=== PATIENT | female | born 1930 | race Caucasian/White ===

== ENCOUNTER 2016-11-05 01:13 | Inpatient (IN) | payer MEDICARE, BC ==
[2016-11-05] VITALS (8 sets, daily range): BP systolic 97–171; BP diastolic 56–86; PULSE 96–143; RESP 16–24; TEMP 96.1–101.2; O2SAT 91–98
[~2016-11-05] VITALS: Ht 160 cm; Wt 75.0 kg
[~2016-11-05 01:13] MED LIST: FURO1TAB62 PO; IBUP200T2 PO; POTA-243 PO; TYLETAB34 PO
[2016-11-05] MEDS ORDERED: ACETAMINOPHEN 325 MG TAB PO ONE (02:00)
[2016-11-05] MEDS ORDERED: MORPHINE SULFATE 4 MG/ML INJ IV PUSH ONE ×2 (02:00→05:00)
[2016-11-05] MEDS ORDERED: SODIUM CHLOR 0.9% 1000 ML INJ 1,000 ML IV ONE ×2 (02:00→03:15)
[2016-11-05] MEDS ORDERED: ONDANSETRON HCL 4 MG/2 ML VIAL IV ONE (02:00)
[2016-11-05 02:08] LABS: AUTOMATED NEUTROPHIL # 13.5 TH/MM3 (1.8-7.7); BASOPHIL % 0.2 % (0.0-2.0); EOSINOPHIL # 0.1 TH/MM3 (0-0.4); EOSINOPHIL % 0.7 % (0.0-4.0); HEMATOCRIT 32.5 % (35.0-46.0); HEMO FLAGS DIFF FINAL; LYMPH % 1.4 % (9.0-44.0); LYMPHOCYTE # 0.2 TH/MM3 (1.0-4.8); MEAN CELL VOLUME 94.1 FL (80.0-100.0); MEAN CORPUSCULAR HEMOGLOBIN 30.8 PG (27.0-34.0); MEAN CORPUSCULAR HGB CONC 32.7 % (32.0-36.0); MONO % 7.5 % (0.0-8.0); NEUT % 90.2 % (16.0-70.0); PLATELET COUNT 299 TH/MM3 (150-450); RED BLOOD COUNT 3.46 MIL/MM3 (4.00-5.30); RED CELL DISTRIBUTION WIDTH 13.2 % (11.6-17.2)
[2016-11-05 02:26] LABS: APTT (PATIENT) 33.6 SEC (24.3-30.1); PROTHROMBIN TIME - PATIENT 11.6 SEC (9.8-11.6)
--- NOTE | 2016-11-05 02:33 | RADRPT ---
EXAM DATE/TIME: 11/05/2016 01:56 [facility] COMPARISON: No previous studies available for comparison. INDICATIONS : Shortness of breath and fever. MEDICAL HISTORY : Carcinoma, Endometrial. SURGICAL HISTORY : Infusaport. ENCOUNTER: Initial ACUITY: 2 days PAIN SCORE: 0/10 LOCATION: chest FINDINGS: The lungs are clear without infiltrate, nodule, or mass. There is no appreciable pleural effusion fo r technique. Heart and mediastinum are unremarkable. Right IJ [id number] is present with tip over lapping the expected region of the SVC. CONCLUSION: No acute cardiopulmonary disease. Deangelo Monsivais MD on November 05, 2016 at 2:32 Board Certified Radiologist. This report was verified electronically.
[2016-11-05 02:35] LABS: ALT (GPT) 13 U/L (10-53); ANION GAP 9 MEQ/L (5-15); AST (GOT) 15 U/L (15-37); BICARBONATE 25.6 MEQ/L (21.0-32.0); BLOOD UREA NITROGEN 25 MG/DL (7-18); CHLORIDE 102 MEQ/L (98-107); GLOMERULAR FILTRATION RATE 84 ML/MIN (>89); POTASSIUM 3.7 MEQ/L (3.5-5.1); SODIUM (NA) 137 MEQ/L (136-145)
--- NOTE | 2016-11-05 02:37 | PD ---
HPI Chief Complaint: Back/ Neck Pain or Injury Time Seen by Provider: 01:50 Travel History International Travel<30 days: No Contact w/Intl Traveler<30days: No Traveled to known affect area: No History of Present Illness HPI This 86 year-old woman who presents to the emergency department complaining of nausea vomiting, low back pain, and chills. She has a history of metastatic endometrial cancer, as well as chronic back pain. The chronic back pain preceded that malignancy. She underwent an L4-L5 laminectomy about 2 weeks ago in [place]. She is doing well initially but over the past several days complained of increased nausea vomiting, increased low back pain, and chills. There is time she's also felt just generally unwell. The incision has not had any drainage or bleeding. She denies any urinary symptoms. She is a little bit of loose stools and diarrhea last week for which she took some Imodium, but no diarrhea this week. No other complaints. History Past Medical History Narrative Medical Endometrial CA Chronic back pain PNEUMOCCOCAL Vaccine (Year): 1 Menopausal: Yes Social History Alcohol Use: No Tobacco Use: No (never) Allergies-Medications (Allergen,Severity, Reaction): Coded Allergies: Penicillin (Verified Allergy, Severe, Hives, 11/05/16) Reported Meds & Prescriptions Reported Meds & Active Scripts Active Reported Klor-Con 10 (Potassium Chloride) 10 Meq Tab 10 Meq PO DAILY Ibuprofen 200 Mg Tab 200 Mg PO Q6H PRN Lasix (Furosemide) 20 Mg Tab 20 Mg PO DAILY Tylenol-Codeine #3 (Acetaminophen-Codeine) 300-30 mg Tab 1 Tab PO Q4H PRN Review of Systems Except as stated in HPI: all other systems reviewed are Neg Physical Exam Narrative GENERAL: Frail appearing 86 year-old woman, no acute distress. SKIN: Focused skin assessment warm/dry. HEAD: Atraumatic. Normocephalic. EYES: Pupils equal and round. No scleral icterus. No injection or drainage. ENT: No nasal bleeding or discharge. Mucous membranes pink and moist. NECK: Trachea midline. No JVD. CARDIOVASCULAR: Heart rates a little bit rapid, but regular. No murmur appreciated. RESPIRATORY: No accessory muscle use. Clear to auscultation. Breath sounds equal bilaterally. GASTROINTESTINAL: Abdomen soft, non-tender, nondistended. Hepatic and splenic margins not palpable. MUSCULOSKELETAL: No obvious deformities. Midline incision in the low back is well approximated. There is no erythema redness surrounding it. Is no drainage. NEUROLOGICAL: Awake and alert. No obvious cranial nerve deficits. Motor grossly within normal limits. Normal speech. PSYCHIATRIC: Appropriate mood and affect; insight and judgment normal. Data Data Last Documented VS Vital Signs Date Time Temp Pulse Resp B/P Pulse Ox O2 Delivery O2 Flow Rate FiO2 11/05/16 02:06 96 Nasal Cannula 2 11/05/16 02:06 18 11/05/16 01:16 98.6 118 134/70 Orders Electrocardiogram (11/05/16 01:50) Complete Blood Count With Diff (11/05/16 01:50) Comprehensive Metabolic Panel (11/05/16 01:50) Prothrombin Time / Inr (Pt) (11/05/16 01:50) Act Partial Throm Time (Ptt) (11/05/16 01:50) Lactic Acid Sepsis Protocol (11/05/16 01:50) Lipase (11/05/16 01:50) Troponin I (11/05/16 01:50) Urinalysis - C+S If Indicated (11/05/16 01:50) Blood Culture (11/05/16 01:50) Chest, Single Ap (11/05/16 01:50) Blood Glucose (11/05/16 01:50) Ecg Monitoring (11/05/16 01:50) Iv Access Insert/Monitor (11/05/16 01:50) Oximetry (11/05/16 01:50) Oxygen Administration (11/05/16 01:50) Acetaminophen (Tylenol) (11/05/16 02:00) Cath For Specimen (11/05/16 01:50) Sodium Chlor 0.9% 1000 Ml Inj (Ns 1000 M (11/05/16 02:00) Morphine Inj (Morphine Inj) (11/05/16 02:00) Ondansetron Inj (Zofran Inj) (11/05/16 02:00) Ct Lumb Spine W Iv Contrast (11/05/16 ) Sodium Chlor 0.9% 1000 Ml Inj (Ns 1000 M (11/05/16 03:15) Admit Order (Ed Use Only) (11/05/16 ) Cefepime Inj (Maxipime Inj) (11/05/16 03:15) Vancomycin Inj (Vancomycin Inj) (11/05/16 03:15) Labs Laboratory Tests Test 11/05/16 11/05/16 01:55 02:30 White Blood Count 15.0 TH/MM3 Red Blood Count 3.46 MIL/MM3 Hemoglobin 10.6 GM/DL Hematocrit 32.5 % Mean Corpuscular Volume 94.1 FL Mean Corpuscular Hemoglobin 30.8 PG Mean Corpuscular Hemoglobin 32.7 % Concent Red Cell Distribution Width 13.2 % Platelet Count 299 TH/MM3 Mean Platelet Volume 8.3 FL Neutrophils (%) (Auto) 90.2 % Lymphocytes (%) (Auto) 1.4 % Monocytes (%) (Auto) 7.5 % Eosinophils (%) (Auto) 0.7 % Basophils (%) (Auto) 0.2 % Neutrophils # (Auto) 13.5 TH/MM3 Lymphocytes # (Auto) 0.2 TH/MM3 Monocytes # (Auto) 1.1 TH/MM3 Eosinophils # (Auto) 0.1 TH/MM3 Basophils # (Auto) 0.0 TH/MM3 CBC Comment DIFF FINAL Differential Comment Prothrombin Time 11.6 SEC Prothromb Time International 1.0 RATIO Ratio Activated Partial 33.6 SEC Thromboplast Time Sodium Level 137 MEQ/L Potassium Level 3.7 MEQ/L Chloride Level 102 MEQ/L Carbon Dioxide Level 25.6 MEQ/L Anion Gap 9 MEQ/L Blood Urea Nitrogen 25 MG/DL Creatinine 0.67 MG/DL Estimat Glomerular Filtration 84 ML/MIN Rate Random Glucose 159 MG/DL Lactic Acid Level 1.4 mmol/L Calcium Level 8.6 MG/DL Total Bilirubin 0.6 MG/DL Aspartate Amino Transf 15 U/L (AST/SGOT) Alanine Aminotransferase 13 U/L (ALT/SGPT) Alkaline Phosphatase 79 U/L Troponin I LESS THAN 0.02 NG/ML Total Protein 6.3 GM/DL Albumin 3.2 GM/DL Lipase 51 U/L Urine Color YELLOW Urine Turbidity CLEAR Urine pH 5.5 Urine Specific [place] 1.029 Urine Protein 30 mg/dL Urine Glucose (UA) TRACE mg/dL Urine Ketones TRACE mg/dL Urine Occult Blood NEG Urine Nitrite NEG Urine Bilirubin NEG Urine Urobilinogen 2.0 MG/DL Urine Leukocyte Esterase NEG Urine RBC 1 /hpf Urine WBC 1 /hpf Urine Squamous Epithelial 1 /hpf Cells Urine Hyaline Casts 1 /lpf Urine Mucus MANY /lpf Microscopic Urinalysis Comment CATH-CULT NOT IND MDM Medical Decision Making Medical Screen Exam Complete: Yes Emergency Medical Condition: Yes Interpretation(s) LABS: CBC remarkable for mild leukocytosis, mild anemia CMP is remarkable for elevated BUN/creatinine ratio, BUN of 25 Troponin negative Hypoproteinemia Lipase normal Lactate 1.4 Coags unremarkable UA unremarkable Chest x-rays unremarkable My review of EKG: Sinus tachycardia rate of 102, normal axis, normal intervals, no acute ischemia. Differential Diagnosis UTI, infection, dehydration, other Narrative Course Medical decision making INITIAL: This a well 86 year-old woman presents to the emergency department feeling poorly with nausea and chills and increase in low back pain. Incision itself appears well without evidence of infection. UTI or pneumonia or possible postoperatively. We'll check labs, x-ray, reassess. Patient has some tachycardia, and reported fever at home. We'll check lactate, cultures. Likely observation. FINAL: 86 year-old woman with weakness and chills back pain and fevers with an elevated white count and heart rate, and likely dehydration. Cultures pending. No UTI. No definite source. We'll give IV fluids, monitor cultures, reassess. Diagnosis Primary Impression: Weakness Additional Impression: Dehydration Admitting Information Admitting Physician Requests: Admit Jimi Kellogg MD Nov 05, 2016 02:37
[2016-11-05 02:39] LABS: ALKALINE PHOSPHATASE 79 U/L (45-117); TOTAL BILIRUBIN ADULT 0.6 MG/DL (0.2-1.0)
[2016-11-05 03:00] LABS: BLOOD, URINE NEG (NEG); GLUCOSE,URINE TRACE mg/dL (NEG); HYALINE CAST, URINE 1 /lpf (RARE); KETONE, URINE TRACE mg/dL (NEG); MUCUS URINE MANY /lpf (OCC); NITRITE,URINE NEG (NEG); PH, URINE 5.5 (5.0-8.5); SQUAMOUS EPITHELIAL CELL URINE 1 /hpf (0-5); URINE COLOR YELLOW (YELLW/STRAW)
[2016-11-05 03:01] LABS: COMMENT (UR) CATH-CULT NOT IND; CULTURE IF INDICATED CATH CULTURE NOT IND
[2016-11-05] MEDS ORDERED: CEFEPIME INJ 2,000 MG in SODIUM CHLORIDE 0.9% INJ 100 ML IV ONE (03:15)
[2016-11-05] MEDS ORDERED: VANCOMYCIN INJ 1,000 MG in SODIUM CHLOR 0.9% 250 ML INJ 250 ML IV ONE (03:15)
[2016-11-05] MEDS ORDERED: IOHEXOL 350 MG/ML 10 ML VIAL (for RAD DIAG) IV ONE (04:31)
--- NOTE | 2016-11-05 05:11 | RADRPT ---
EXAM DATE/TIME: 11/05/2016 04:14 [facility] COMPARISON: No previous studies available for comparison. INDICATIONS : Pain two weeks status post laminectomy, evaluate for possible spinal infection. IV CONTRAST: 80 cc Omnipaque 350 (iohexol) IV RADIATION DOSE: 39.12 CTDIvol (mGy) MEDICAL HISTORY : None SURGICAL HISTORY : Laminectomy ENCOUNTER: Initial ACUITY: 2 weeks PAIN SCALE: 5/10 LOCATION: [facility] TECHNIQUE: Volumetric scanning of the lumbar spine was performed. Multiplanar reconstructions in the sagittal, coronal and oblique axial planes were performed. Using automated exposure control and adjustment of the mA and/or kV according to patient size, radiation dose was kept as low as reasonably achievable t o obtain optimal diagnostic quality images. FINDINGS: No significant compression deformities, spondylolysis, or spondylolisthesis is seen. L1-L2: Slight degenerative changes are seen within the disc space and facets. Slight bulging disc and hypertrophic changes are seen with indentation on the thecal sac and no significant compromise to th e thecal sac or the exiting nerve roots. L2-L3: Moderate degenerative changes are seen within the disc space and facets. There is slight neura l foramina compromise on the left due to asymmetrical bulging disc and hypertrophic changes. Slight o verall thecal sac stenosis is seen due to central disc bulge and hypertrophic changes. L3-L4: There is evidence for prior laminectomy. Multiple gas levels are present probably postoperativ e change and there is fluid collection within the operative bed posteriorly measures 3 cm in size. Th is could be postsurgical change, however infectious process an abscess is not excluded. There is slig ht neural foramina compromise on the right due to asymmetrical bulging disc and hypertrophic changes. L4-L5: There is moderate neural foramina compromise bilaterally due to bulging disc and hypertroph ic changes. There is evidence for laminectomy at this level. L5-S1: Moderate degenerative changes are seen within the disc space and facets. There is asymmetrical bulging disc towards the left with extension into the left neural foramen impinging the exiting nerv e root to a slight degree. Slight bilateral lateral recess compromise is seen due to hypertrophic yessi nges and bulging disc. No significant thecal sac stenosis is seen. CONCLUSION: 1. Postop laminectomy at L4 level with fluid within the operative bed and a few scattered gas bubbles may be postsurgical change and possibly resolving hematoma, however abscess is not excluded. No defi nite signs of osteomyelitis. 2. Neural foramina compromise left L2-L3, bilateral L4-L5. 3. Bilateral masses compromise L5-S1. 4. Residual slight thecal sac stenosis may be present at L3-4 and L4-5. Deangelo Monsivais MD on November 05, 2016 at 5:00 Board Certified Radiologist. This report was verified electronically.
--- NOTE | 2016-11-05 06:36 | HHI.HP ---
History of Present Illness Service Family medicine Primary Care Physician Nestor Kendrick, DO Admission Diagnosis weakness, dehydration, rule out sepsis Diagnoses: (1) Dehydration Diagnosis: Principal (2) Weakness Diagnosis: Principal History of Present Illness This 86 year-old woman who presents to the emergency department complaining of nausea vomiting, low back pain, and chills. She has a history of metastatic endometrial cancer, as well as chronic back pain. The chronic back pain preceded that malignancy. She underwent an L4-L5 laminectomy about 2 weeks ago in [place]. She is doing well initially but over the past several days complained of increased nausea vomiting, increased low back pain, and chills. There is time she's also felt just generally unwell. The incision has not had any drainage or bleeding. She denies any urinary symptoms. She is a little bit of loose stools and diarrhea last week for which she took some Imodium, but no diarrhea this week. No other complaints. Review of Systems Constitutional: COMPLAINS OF: Fatigue Respiratory: DENIES: Sputum production, Shortness of breath Cardiovascular: DENIES: Chest pain, Palpitations, Lower Extremity Edema Gastrointestinal: COMPLAINS OF: Nausea, Vomiting, DENIES: Constipation Musculoskeletal: COMPLAINS OF: Muscle aches Neurologic: COMPLAINS OF: Headache Past Family Social History Allergies: Coded Allergies: Penicillin (Verified Allergy, Severe, Hives, 11/05/16) Past Medical History Endometrial CA Chronic back pain Past Surgical History Laminectomy with Dr Bonilla 2 weeks ago Reported Medications Reported Meds & Active Scripts Active Reported Klor-Con 10 (Potassium Chloride) 10 Meq Tab 10 Meq PO DAILY Ibuprofen 200 Mg Tab 200 Mg PO Q6H PRN Lasix (Furosemide) 20 Mg Tab 20 Mg PO DAILY Tylenol-Codeine #3 (Acetaminophen-Codeine) 300-30 mg Tab 1 Tab PO Q4H PRN Current Medications Medications (Trade) Dose Ordered Sig/Aleja Route Start Time Stop Time Status Last Admin Ondansetron HCl 4 mg 4 mg Q6H PRN IV 11/05/16 06:45 11/05/16 06:46 (NS 1000 ml Inj) 1,000 ml @ 83 mls/hr Q12H3M IV 11/05/16 07:00 11/05/16 06:46 Active Ordered Medications Current Medications Medications (Trade) Dose Ordered Sig/Aleja Route Start Time Stop Time Status Last Admin Ondansetron HCl 4 mg 4 mg Q6H PRN IV 11/05/16 06:45 11/05/16 06:46 (NS 1000 ml Inj) 1,000 ml @ 83 mls/hr Q12H3M IV 11/05/16 07:00 11/05/16 06:46 Family History Father with heart disease Mother hx of diabetes Social History Denies smoking or ETOH use. 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 Alert and cooperative SKIN: Incision on back without redness. Cool and dry. HEAD: Atraumatic. Normocephalic. No temporal or scalp tenderness. EYES: Pupils equal round and reactive. ENT: Nose without bleeding, purulent drainage or septal hematoma. Throat without erythema. Airway patent. NECK: Supple and nontender. Negative JVD CARDIOVASCULAR: Regular rate and rhythm without murmurs, gallops, or rubs. RESPIRATORY: Clear to auscultation. Breath sounds equal bilaterally. No wheezes , rales, or rhonchi. GASTROINTESTINAL: Abdomen soft, non-tender, nondistended. No guarding. MUSCULOSKELETAL: Extremities without clubbing, cyanosis, or edema. No joint tenderness, effusion, or edema noted. No calf tenderness. Negative Homans sign bilaterally. NEUROLOGICAL: Awake and alert. Normal speech. Laboratory Laboratory Tests Test 11/05/16 11/05/16 01:55 02:30 White Blood Count 15.0 Red Blood Count 3.46 Hemoglobin 10.6 Hematocrit 32.5 Mean Corpuscular Volume 94.1 Mean Corpuscular Hemoglobin 30.8 Mean Corpuscular Hemoglobin 32.7 Concent Red Cell Distribution Width 13.2 Platelet Count 299 Mean Platelet Volume 8.3 Neutrophils (%) (Auto) 90.2 Lymphocytes (%) (Auto) 1.4 Monocytes (%) (Auto) 7.5 Eosinophils (%) (Auto) 0.7 Basophils (%) (Auto) 0.2 Neutrophils # (Auto) 13.5 Lymphocytes # (Auto) 0.2 Monocytes # (Auto) 1.1 Eosinophils # (Auto) 0.1 Basophils # (Auto) 0.0 CBC Comment DIFF FINAL Differential Comment Prothrombin Time 11.6 Prothromb Time International 1.0 Ratio Activated Partial 33.6 Thromboplast Time Sodium Level 137 Potassium Level 3.7 Chloride Level 102 Carbon Dioxide Level 25.6 Anion Gap 9 Blood Urea Nitrogen 25 Creatinine 0.67 Estimat Glomerular Filtration 84 Rate Random Glucose 159 Lactic Acid Level 1.4 Calcium Level 8.6 Total Bilirubin 0.6 Aspartate Amino Transf 15 (AST/SGOT) Alanine Aminotransferase 13 (ALT/SGPT) Alkaline Phosphatase 79 Troponin I LESS THAN 0.02 Total Protein 6.3 Albumin 3.2 Lipase 51 Urine Color YELLOW Urine Turbidity CLEAR Urine pH 5.5 Urine Specific [place] 1.029 Urine Protein 30 Urine Glucose (UA) TRACE Urine Ketones TRACE Urine Occult Blood NEG Urine Nitrite NEG Urine Bilirubin NEG Urine Urobilinogen 2.0 Urine Leukocyte Esterase NEG Urine RBC 1 Urine WBC 1 Urine Squamous Epithelial 1 Cells Urine Hyaline Casts 1 Urine Mucus MANY Microscopic Urinalysis Comment CATH-CULT NOT IND Date/Time Procedure Status Source Growth 11/05/16 01:55 Aerobic Blood Culture Received Blood Peripheral Pending 11/05/16 01:55 Anaerobic Blood Culture Received Blood Peripheral Pending Result Diagram: 11/05/16 0155 11/05/16 0155 Imaging Last 48 hours Impressions Chest X-Ray 11/05/16 0150 Signed Impressions: Service Date/Time: Saturday, November 05, 2016 01:56 - CONCLUSION: No acute cardiopulmonary disease. Deangelo Monsivais MD Lumbar Spine CT 11/05/16 0000 Signed Impressions: Service Date/Time: Saturday, November 05, 2016 04:14 - CONCLUSION: 1. Postop laminectomy at L4 level with fluid within the operative bed and a few scattered gas bubbles may be postsurgical change and possibly resolving hematoma, however abscess is not excluded. No definite signs of osteomyelitis. 2. Neural foramina compromise left L2-L3, bilateral L4-L5. 3. Bilateral masses compromise L5-S1. 4. Residual slight thecal sac stenosis may be present at L3-4 and L4-5. Deangelo Monsivais MD Assessment and Plan Problem List: (1) Dehydration Status: Acute Plan: Patient vomiting when rounding. Received 2 liters last night. Will order IVF continuously. (2) Weakness Status: Acute Plan: Will order PT (3) Nausea & vomiting Status: Acute Plan: Zofran ordered. CT of abdomen ordered. (4) Leukocytosis Status: Acute Plan: WBC 15.0. Chest Xray with no acute findings. UA negative. Will recheck CBC in AM Discussed Condition With Assessment and plan discussed with Dr. Kendrick. Dayanara Barbour Nov 05, 2016 06:35
[2016-11-05] MEDS ORDERED: ONDANSETRON HCL 4 MG/2 ML VIAL IV PRN ×2 (06:45→16:00)
[2016-11-05] MEDS: SODIUM CHLOR 0.9% 1000 ML INJ 1,000 ML IV SCH ×2 (06:46→19:03)
[2016-11-05] MEDS ORDERED: DIATRIZOATE MEGLUM/DIATRIZOATE SOD 9 ML CUP PO ONE (11:49)
--- NOTE | 2016-11-05 13:37 | EKG ---
Date Performed: 11/05/2016 Time Performed: 02:28:57 PTAGE: 86 years EKG: SINUS TACHYCARDIA WITH FIRST DEGREE AV BLOCK LOW QRS VOLTAGE IN PRECORDIAL LEADS ABNORMAL E CG Compared to prior tracing no significant change PREVIOUS TRACING : 08/11/2011 11.37 DOCTOR: Kaden Phan Interpretating Date/Time 11/05/2016 13:35:53
[2016-11-05] MEDS ORDERED: PANTOPRAZOLE SODIUM 40 MG VIAL IV PUSH SCH (16:00)
[2016-11-05] MEDS ORDERED: Custom Consult Pharmacy 1 EA OTHER SCH (16:30)
--- NOTE | 2016-11-05 16:38 | RADRPT ---
EXAM DATE/TIME: 11/05/2016 16:08 [facility] COMPARISON: CT LUMBAR SPINE W CONTRAST, November 05, 2016, 4:14. INDICATIONS : Altered mental status. RADIATION DOSE: 57.42 CTDIvol (mGy) MEDICAL HISTORY : Endometrial cancer SURGICAL HISTORY : Appendectomy. Hysterectomy. ENCOUNTER: Initial ACUITY: 1 day PAIN SCALE: Non-responsive LOCATION: cranial TECHNIQUE: Multiple contiguous axial images were obtained of the head. Using automated exposure control and adj ustment of the mA and/or kV according to patient size, radiation dose was kept as low as reasonably a chievable to obtain optimal diagnostic quality images. FINDINGS: CEREBRUM: The ventricles are normal for age. No evidence of midline shift, mass lesion, hemorrhage or acute in farction. No extra-axial fluid collections are seen. POSTERIOR FOSSA: The cerebellum and brainstem are intact. The 4th ventricle is midline. The cerebellopontine angle i s unremarkable. EXTRACRANIAL: The visualized portion of the orbits is intact. SKULL: The calvaria is intact. No evidence of skull fracture. CONCLUSION: 1. No acute intracranial abnormality. Hussain Sandoval MD on November 05, 2016 at 16:36 Board Certified Radiologist. This report was verified electronically.
[2016-11-05] MEDS ORDERED: Vancomycin Consult Pharmacy 1 EA OTHER SCH (16:45)
[2016-11-05] MEDS ORDERED: VANCOMYCIN INJ 1,000 MG in SODIUM CHLOR 0.9% 250 ML INJ 250 ML IV SCH (17:00)
--- NOTE | 2016-11-05 17:02 | RADRPT ---
EXAM DATE/TIME: 11/05/2016 16:12 [facility] COMPARISON: CT BRAIN W/O CONTRAST, November 05, 2016, 16:08. INDICATIONS : Vomiting. ORAL CONTRAST: Partial prescribed oral contrast ingested. RADIATION DOSE: 19.47 CTDIvol (mGy) MEDICAL HISTORY : Endometrial cancer SURGICAL HISTORY : Appendectomy. Hysterectomy. ENCOUNTER: Initial ACUITY: 1 day PAIN SCALE: Non-responsive LOCATION: abdomen TECHNIQUE: Volumetric scanning of the abdomen and pelvis was performed. Using automated exposure control and ad justment of the mA and/or kV according to patient size, radiation dose was kept as low as reasonably achievable to obtain optimal diagnostic quality images. FINDINGS: There is minimal atelectatic change at the lung bases. No suspicious lesions are seen. There is ather osclerotic plaquing in the coronary arteries. The appearance of the liver, spleen, pancreas, adrenal glands and kidneys is within normal limits. No te is made of some residual contrast within the kidneys bilaterally. The abdominal aorta is normal in caliber. There is no retroperitoneal lymphadenopathy. The visualized loops of small and large bowel in the upper abdomen are unremarkable. The anterior abdominal wall is intact. There is no free fluid within the pelvis. No iliac or inguinal adenopathy is present. The visualized bony structures demonstrate postsurgical changes in the lumbar spine but are otherwise intact. CONCLUSION: 1. There is residual IV contrast within the kidneys and bladder. 2. There are no findings to indicate a bowel obstruction. 3. The patient is post hysterectomy. Hussain Sandoval MD on November 05, 2016 at 16:58 Board Certified Radiologist. This report was verified electronically.
[2016-11-05] MEDS: AZTREONAM INJ 1,000 MG in SODIUM CHLORIDE 0.9% INJ 100 ML IV SCH (17:05)
[2016-11-05] MEDS ORDERED: VANCOMYCIN INJ 1,250 MG in SODIUM CHLOR 0.9% 250 ML INJ 250 ML IV SCH ×2 (18:00→21:00)
[2016-11-05] MEDS ORDERED: MORPHINE SULFATE 4 MG/ML INJ IV PRN (18:00)
[2016-11-05] MEDS ORDERED: ACETAMINOPHEN 650 MG SUPP RECTAL PRN (18:30)
[2016-11-05] MEDS: MORPHINE SULFATE 4 MG/ML INJ IV PRN (18:31)
--- NOTE | 2016-11-05 20:43 | MB ---
cc: CABRERA PATE MD DATE OF CONSULTATION: 11/05/2016. REASON FOR CONSULTATION: Intractable nausea and vomiting. REFERRING PHYSICIAN: Dr. Kendrick. HISTORY OF PRESENT ILLNESS: This is an 86-year-old female who was admitted today with altered mental status along with low back pain, abdominal pain and nausea and vomiting. The patient has been medicated and is somewhat obtunded and unable to give any meaningful history. Her and daughter are at the bedside and the history is obtained primarily from the daughter. The patient was diagnosed four or five years ago with endometrial cancer and underwent chemo and radiation treatments and a hysterectomy. She states she was disease-free with negative PET scans for a while and then developed a metastatic lesion to her shoulder which was treated with chemotherapy and then some time later developed more bony metastases and now has about seven metastatic lesions according to her daughter. She has been getting regular chemotherapy under the direction of Dr. Marin and her last treatment was around October 06 according to her daughter. The patient developed severe low back pain where she could not even ambulate and underwent a laminectomy by a surgeon in [place] about two weeks ago. In order to avoid constipation because of the hydrocodone prescribed postop, she was given some Senokot and then developed diarrhea. She did not get any more laxatives but continued to have diarrhea for the past two weeks with a somewhat strong odor. It does not appear that she has had a bowel movement since yesterday. She states that she was feeling better until about two days ago when she started getting a little nauseated and complaining about her lower back hurting. They were taking care of the wound at home and never noticed any drainage. The daughter has been here for the past two weeks and has given her some ibuprofen when she did not want to take the hydrocodone. She also bought her some [id number] omeprazole and was using it once daily as needed because she developed some increased gas and belching over the past week. Prior to this current illness, they state she never had any upper GI problems. No history of ulcer disease or chronic GERD symptoms. She had a negative colonoscopy four or five years ago when she was still living in [place]. SOCIAL HISTORY: She is . She does not use tobacco or alcohol. MEDICATIONS: Her medications include: 1. Potassium 10 milliequivalents daily. 2. Ibuprofen 200 milligrams PRN 3. Lasix 20 milligrams daily. 4. Tylenol #3 PRN. ALLERGIES: SHE HAS ALLERGIES TO PENICILLIN. PAST MEDICAL HISTORY: Her medical history is remarkable for chronic back pain, endometrial carcinoma with metastatic disease. PAST SURGICAL HISTORY: She has had an appendectomy, hysterectomy, and recent laminectomy of her lumbar spine about two weeks ago. FAMILY HISTORY: Father had heart disease, mother had diabetes. REVIEW OF SYSTEMS: A review of systems is difficult to obtain due to her altered mental status. The daughter states she was alert and oriented last night before she went to bed but was awoken around midnight with altered mental status and increased pain and a fever. PHYSICAL EXAMINATION: GENERAL: The physical exam reveals an obtunded but arousable elderly female. VITAL SIGNS: Her blood pressure is 150/66, pulse 114, respirations 20, temperature is 86.1. HEAD, EYES, EARS, NOSE, THROAT: The sclerae are anicteric. LUNGS: Clear to auscultation. HEART: Heart sounds reveal a mild tachycardia. ABDOMEN: Nondistended with mild tenderness in the right lower quadrant. She has some well-healed surgical scars including in the lower midline and what looks like an appendectomy scar in the right lower quadrant. No palpable masses or hernias. No detectable ascites. BACK: Examination of her recent lumbar laminectomy wound shows some mild erythema around the wound which is slightly open but there is no drainage. There is no induration or fluctuance. Her skin is warm and she does feel febrile. EXTREMITIES: No cyanosis or clubbing and no peripheral edema. The patient would arouse to voice commands but would not answer with any intelligible response. LAB WORK: Her lab work reveals a BUN of 25 with a creatinine of 0.67, lactic acid of 1.4. Liver function tests, troponin, albumin and lipase are all normal. Her white count is elevated to 15,000 with 90 neutrophils, hemoglobin 10.6, platelet count 299,000. INR 1.0. Urinalysis was negative for infection and did show trace ketones. Blood cultures are pending. IMAGING STUDIES: Chest x-ray showed no acute cardiopulmonary disease. Lumbar CT showed some postop laminectomy at L4 level with fluid within the operative bed and a few scattered gas bubbles. This could be resolving hematoma; however, abscess not excluded. No definite signs of osteomyelitis. There are bilateral masses compromising L5-S1. The patient has been getting Zofran, IV fluids, she has received some morphine for her pain. She did receive a dose of Cefepime 2 grams and Vancomycin 1 gram. IMPRESSION: 1. Nausea and vomiting. Suspect this is secondary to whatever is causing her fever, altered mental status and low back pain. There does appear to be a possible source of infection. The lung and urines are clear. 2. Possible abdominal pain and recent diarrhea. Rule out C. difficile colitis since the patient likely received perioperative antibiotics. PLAN: 1. Agree with obtaining a CT scan of the abdomen and pelvis. 2. Will add a proton pump inhibitor. 3. Will check stool for C. Difficile. 4. May need to have an orthopedic or neurosurgeon evaluate her lumbar wound for possible abscess. Will follow with you. Thank you for this consult. MD CHITRA Brandt/KAILEY /3:49 PM /8:14 PM
[2016-11-06] VITALS (7 sets, daily range): BP systolic 126–185; BP diastolic 58–98; PULSE 112–144; RESP 14–24; TEMP 96.8–100.3; O2SAT 95–98
[2016-11-06] MEDS: MORPHINE SULFATE 4 MG/ML INJ IV PRN (00:32)
[2016-11-06] MEDS: AZTREONAM INJ 1,000 MG in SODIUM CHLORIDE 0.9% INJ 100 ML IV SCH (05:24)
[2016-11-06 05:58] LABS: AUTOMATED NEUTROPHIL # 24.1 TH/MM3 (1.8-7.7); BASOPHIL # 0.1 TH/MM3 (0-0.2); BASOPHIL % 0.5 % (0.0-2.0); HEMATOCRIT 30.3 % (35.0-46.0); HEMO FLAGS DIFF FINAL; LYMPH % 0.7 % (9.0-44.0); LYMPHOCYTE # 0.2 TH/MM3 (1.0-4.8); MEAN CELL VOLUME 94.8 FL (80.0-100.0); MEAN CORPUSCULAR HEMOGLOBIN 32.8 PG (27.0-34.0); MEAN CORPUSCULAR HGB CONC 34.6 % (32.0-36.0); NEUT % 92.8 % (16.0-70.0); PLATELET COUNT 264 TH/MM3 (150-450); RED BLOOD COUNT 3.19 MIL/MM3 (4.00-5.30); RED CELL DISTRIBUTION WIDTH 13.4 % (11.6-17.2)
[2016-11-06 06:33] LABS: ALKALINE PHOSPHATASE 66 U/L (45-117); ALT (GPT) 12 U/L (10-53); ANION GAP 12 MEQ/L (5-15); AST (GOT) 12 U/L (15-37); BICARBONATE 21.1 MEQ/L (21.0-32.0); BLOOD UREA NITROGEN 28 MG/DL (7-18); CHLORIDE 106 MEQ/L (98-107); GLOMERULAR FILTRATION RATE 35 ML/MIN (>89); MAGNESIUM 1.4 MG/DL (1.5-2.5); POTASSIUM 3.9 MEQ/L (3.5-5.1); SODIUM (NA) 139 MEQ/L (136-145); TOTAL BILIRUBIN ADULT 0.9 MG/DL (0.2-1.0)
--- NOTE | 2016-11-06 10:36 | HHI.GIFU ---
GI Follow-up Note Consult Follow-up Subjective: Patient more awake but still unable to articulate words. Discussed with her nurse. Little urine output. Objective: PHYSICAL EXAMINATION: Vitals signs stable No fever CARDIAC: Tachycardia (EKG shows sinus tach) ABDOMEN: non-distended with no definite tenderness. SKIN: warm and dry. NEURO: awake and responds with head movement but nonverbal. Getting an EEG now. Available Data (labs, X- Rays, Procedues) : I reviewed her CT Abd & pelvis with radiologist. No intra abdominal or pelvic abnormalities to explain fever, leukocytosis or pain. Concern for air bubbles within recent operative field lumbar laminectomy-per radiologist should not se air this far out from surgery. CXR clear. Urine clear. Blood cultures pending. WBC increasing. BUN and creatinine worsening. ASSESSMENT/PLAN: 1. Sepsis-highly suspect infected lumbar site. Needs to be seen by ortho or neurosurgeon. Will increase IVFs and ask to keep track of I&O. I do not identify any GI problem. It was a pleasure seeing Inez Leos Thank you for this consult. Entered by: Orlando Barahona MD Nov 06, 2016 10:36
--- NOTE | 2016-11-06 11:56 | HHI.PR ---
Subjective Remarks pt has declined nausea and vomiting have abated but temp bp and heartrate [place] [id number] will transfer to icu neurosurgical consult ordered discussed with dr [place] edward Objective Vital Signs Date Time Temp Pulse Resp B/P Pulse Ox O2 Delivery O2 Flow Rate FiO2 11/06/16 07:50 98.9 144 20 162/98 95 11/06/16 04:00 96.8 119 15 154/85 96 11/06/16 01:00 19 11/06/16 01:00 18 11/06/16 00:00 97.0 143 16 126/58 96 11/05/16 20:12 20 11/05/16 20:00 96.3 143 16 110/56 95 11/05/16 17:35 101.2 130 24 171/86 96 11/05/16 12:00 96.1 114 20 150/66 98 Result Diagram: 11/06/16 0434 11/06/16 0434 Imaging Last 48 hours Impressions Chest X-Ray 11/05/16 0150 Signed Impressions: Service Date/Time: Saturday, November 05, 2016 01:56 - CONCLUSION: No acute cardiopulmonary disease. Deangelo Monsivais MD Lumbar Spine CT 11/05/16 0000 Signed Impressions: Service Date/Time: Saturday, November 05, 2016 04:14 - CONCLUSION: 1. Postop laminectomy at L4 level with fluid within the operative bed and a few scattered gas bubbles may be postsurgical change and possibly resolving hematoma, however abscess is not excluded. No definite signs of osteomyelitis. 2. Neural foramina compromise left L2-L3, bilateral L4-L5. 3. Bilateral masses compromise L5-S1. 4. Residual slight thecal sac stenosis may be present at L3-4 and L4-5. Deangelo Monsivais MD Head CT 11/05/16 0000 Signed Impressions: Service Date/Time: Saturday, November 05, 2016 16:08 - CONCLUSION: 1. No acute intracranial abnormality. Hussain Sandoval MD Abdomen/Pelvis CT 11/05/16 0000 Signed Impressions: Service Date/Time: Saturday, November 05, 2016 16:12 - CONCLUSION: 1. There is residual IV contrast within the kidneys and bladder. 2. There are no findings to indicate a bowel obstruction. 3. The patient is post hysterectomy. Hussain Sandoval MD Procedures had laminectomy 2 weeks ago Objective Remarks CONSTITUTIONAL/GENERAL: This is an adequately nourished patient, in no apparent distress. TUBES/LINES/DRAINS: SKIN: No jaundice, rashes, or lesions. Skin temperature appropriate. Not diaphoretic. HEAD: Atraumatic. Normocephalic. EYES: Pupils equal and round and reactive. Extraocular motions intact. No scleral icterus. No injection or drainage. Fundi not examined. ENT: Hearing grossly normal. Nose without bleeding or purulent drainage. Throat without visible erythema, exudates, masses, or lesions. NECK: Trachea midline. Supple, nontender. No palpable thyroid enlargement or nodularity. CARDIOVASCULAR: Regular rate and rhythm without murmurs, gallops, or rubs. No JVD. Peripheral pulses symmetric pt has tachacardic pulses. RESPIRATORY/CHEST: Symmetric, unlabored respirations. Clear to auscultation. Breath sounds equal bilaterally. No wheezes, rales, or rhonchi. GASTROINTESTINAL: Abdomen soft, some tenderness nausea resolved nondistended. No hepato-splenomegaly, or palpable masses. No guarding. Bowel sounds present. GENITOURINARY: Without palpable bladder distension. Jean-Baptiste catheter in place. MUSCULOSKELETAL: Extremities without clubbing, cyanosis, or edema. No joint tenderness or effusion noted. No calf tenderness. No mottling or clubbing.lumbar wound with drainage LYMPHATICS: No palpable cervical or supraclavicular adenopathy. NEUROLOGICAL: Awake and alert. Motor and sensory grossly within normal limits. Follows commands. Cognitively sharp. Moves all extremities. PSYCHIATRIC: No obvious anxiety/depression. no apparent hallucinations or other psychotic thought process. Medications and IVs Current Medications Medications (Trade) Dose Ordered Sig/Aleja Route PRN Reason Start Time Stop Time Status Last Admin Dose Admin Sodium Chloride (NS 1000 ml Inj) 1,000 ml @ 125 mls/hr Q8H IV 11/05/16 07:00 11/05/16 19:03 Ondansetron HCl (Zofran Inj) 4 mg Q4HR PRN IV NAUSEA 11/05/16 16:00 Pantoprazole Sodium 40 mg 40 mg Q24H IV PUSH 11/05/16 16:00 11/05/16 17:05 Aztreonam 1000 mg/ Sodium Chloride 100 ml @ 200 mls/hr Q12H IV 11/05/16 18:00 4/8/17 05:24 Pharmacy Profile Note (Vancomycin Consult Pharmacy) ml @ 0 mls/hr UNSCH OTHER 11/05/16 16:45 Morphine Sulfate (Morphine Inj) 1 mg Q6H PRN IV PAIN SCALE 1-5 11/05/16 18:00 11/06/16 00:32 Morphine Sulfate (Morphine Inj) 2 mg Q6H PRN IV PAIN SCALE 6-10 11/05/16 18:00 11/05/16 18:31 Acetaminophen (Tylenol Supp) 650 mg Q4H PRN RECTAL FEVER > 101 11/05/16 18:30 11/05/16 18:30 Miscellaneous Information SPECIFIC LAB TO BE DRAWN:VANCOMYCIN TROUGH DATE TO... ONCE ONCE .XX 11/07/16 08:45 11/07/16 08:46 Assessment and Plan Problem List: (1) Nausea & vomiting (2) Weakness Status: Acute (3) Leukocytosis Status: Acute Plan: pt appears septic definitive source not yet identisief suspect surgical site infection Assessment and Plan pt septic transfered to icu case discussed with intensivest dr cleveland paulino ID consult neuro surgical consult also ordered Discussed Condition With and daughter Nestor Kendrick DO Nov 06, 2016 11:56
--- NOTE | 2016-11-06 12:29 | PD.ID.CON ---
History of Present Illness Service ID Consult Requested By Reason for Consult Evaluation and Mment of Sepsis and Suspected Surgical Site infection, Epidural abscess. Primary Care Physician Nestor Kendrick, DO Diagnoses: History of Present Illness is an 86 y/o CF with PMHx of endometrial cancer s/p chemotherapy 5 yrs back as well as surgery. Patient reportedly had recurrence with endometrial cancer involving multiple bones of the body. She underwent 2nd set of chemotherapy for metastatic endometrial cancer. Her Ob-Managed Care Director oncologist is Dr.Kelly Marin. Patient has a port used for chemotherapy. Most recent PET scan as reported by daughter revealed multiple bony metastasis to include skull, and right upper arm. She underwent an L[facility]-L5 [facility]. Prior to her surgery , the patient was extremely physically active without any ambulation difficulties. She did not have any bowel bladder issues. With this background patient presents to the ED with complains of nausea, vomiting, low back pain, and chills on 11/05/2016. She was doing well initially but over the past several days complained of increased nausea, vomiting, increased low back pain, and chills. Patient's daughter reports discharge from the surgical site beginning the day prior to admission. Upon discussion with RN , patient has been wetting her bed but not voiding. No bleeding. No incontinence of bowel although suspicious bladder overflow secondary to retention. Lumbar CT scan revealed postop laminectomy L4 with fluid and scattered bubbles possibly resolving hematoma, abscess could not be excluded. ID and .Critical care medicine is consulted for patients noted sepsis, and progressive weakness bilateral lower extremities. At the time of my evaluation patient was on [facility]. Upon arrival patient did not have a baird but was tender to touch in her suprapubic region. I asked RN to place a Stat baird and patient had 300 cc of clear urine. present in the room was managing vitals and ordered Fluid bolus. Patient appeared encephalopathic but able to maintain airway just confused and unable to answer questions (no baseline dementia known). Patient demonstrated left side LE weakness, acute retention and encephalopathy. Decision to transfer to ICU was made. Attempted to call . contacted and MRI was ordered. Wound examined by me and yellow brown fluid draining from surgical site and dressing soaked as well, local tenderness noted as well. Review of Systems ROS Limitations: Altered Mental Status Past Family Social History Allergies: Coded Allergies: Penicillin (Verified Allergy, Severe, Rash, 11/06/16) Rash 2 decades back. Past Medical History GB infection Past Surgical History Endometrial cancer s.p surgery Cervical spine surgery unsure of hardware Laminectomy lumbar 11/05/2016. Reported Medications Reported Meds & Active Scripts Active Reported Klor-Con 10 (Potassium Chloride) 10 Meq Tab 10 Meq PO DAILY Ibuprofen 200 Mg Tab 200 Mg PO Q6H PRN Lasix (Furosemide) 20 Mg Tab 20 Mg PO DAILY Tylenol-Codeine #3 (Acetaminophen-Codeine) 300-30 mg Tab 1 Tab PO Q4H PRN Active Ordered Medications Current Medications Medications (Trade) Dose Ordered Sig/Aleja Route Start Time Stop Time Status Last Admin (NS 1000 ml Inj) 1,000 ml @ 125 mls/hr Q8H IV 11/05/16 07:00 11/06/16 13:38 Pantoprazole Sodium 40 mg 40 mg Q24H IV PUSH 11/05/16 16:00 11/05/16 17:05 (Vancomycin Consult Pharmacy) ml @ 0 mls/hr UNSCH OTHER 11/05/16 16:45 (Tylenol Supp) 650 mg Q4H PRN RECTAL 11/05/16 18:30 11/05/16 18:30 Miscellaneous Information SPECIFIC LAB TO BE DRAWN:VANCOMYCIN TROUGH DATE TO... ONCE ONCE .XX 11/07/16 08:45 11/07/16 08:46 Ceftazidime 2000 mg/Sodium Chloride 100 ml @ 200 mls/hr Q8H IV 11/06/16 14:00 11/06/16 13:39 (Flagyl 500 Mg Inj) 100 ml @ 100 mls/hr Q8H IV 11/06/16 13:00 11/06/16 13:40 (NS Flush) 2 ml UNSCH PRN IV FLUSH 11/06/16 12:30 (NS Flush) 2 ml BID IV FLUSH 11/06/16 21:00 (Tylenol) 650 mg Q6H PRN PO 11/06/16 12:30 (Pepcid Inj) 20 mg Q12HR IV PUSH 11/06/16 21:00 UNV (Zofran Inj) 4 mg Q6H PRN IV 11/06/16 12:30 (Dulcolax Supp) 10 mg DAILY PRN RECTAL 11/06/16 12:30 Miscellaneous Information 1 Q361D XX 11/06/16 12:30 (Chlorhexidine 2% Cloth) 3 pack Taper DAILY@04 TOP 11/07/16 04:00 11/03/17 03:59 (Chlorhexidine 2% Cloth) 3 pack UNSCH PRN TOP 11/06/16 12:30 (D50w (Vial) Inj) 25 ml UNSCH PRN IV PUSH 11/06/16 14:15 (Glucagon Inj) 1 mg UNSCH PRN OTHER 11/06/16 14:15 UNV Family History reviewed and NC to current ID problems. Daughter has Cx spine surgery. Social History [facility] . informs patients spouse has dementia. Patient was full ADL and independent prior to admission No alcohol No smoking. Physical Exam Vital Signs Vital Signs Date Time Temp Pulse Resp B/P Pulse Ox O2 Delivery O2 Flow Rate FiO2 11/06/16 11:50 98.7 144 20 185/94 97 11/06/16 07:50 98.9 144 20 162/98 95 11/06/16 04:00 96.8 119 15 154/85 96 11/06/16 01:00 19 11/06/16 01:00 18 11/06/16 00:00 97.0 143 16 126/58 96 11/05/16 20:12 20 11/05/16 20:00 96.3 143 16 110/56 95 11/05/16 17:35 101.2 130 24 171/86 96 Physical Exam GENERAL: This is a well-nourished, well-developed patient, in no apparent distress. SKIN: No rashes, ecchymoses or lesions. Cool and dry. HEAD: Atraumatic. Normocephalic. No temporal or scalp tenderness. EYES: Pupils equal round and reactive. Extraocular motions intact. No scleral icterus. No injection or drainage. ENT: Nose without bleeding, purulent drainage or septal hematoma. Throat without erythema, tonsillar hypertrophy or exudate. Uvula midline. Airway patent. NECK: Trachea midline. Supple, nontender, no meningeal signs. CARDIOVASCULAR: RRR RESPIRATORY: Clear to auscultation. Breath sounds equal bilaterally. No wheezes , rales, or rhonchi. GASTROINTESTINAL: Abdomen soft, nondistended. Midline old surgical scar intact, suprapubic tenderness noted. No baird. MUSCULOSKELETAL: Extremities without clubbing, cyanosis, or edema. No joint tenderness, effusion, or edema noted. No calf tenderness. Negative Homans sign bilaterally. NEUROLOGICAL: Awake, confused, not able to answer simple questions (did not know or place). Left LE weakness noted 3+/5 in left foot, knee level. No pain or restriction in motion at hip level. Back exam: Surgical site with swelling, tenderness and opening with yellow brown discharge noted. Psych: cooperative IV line sites with no e.o infection. Laboratory Laboratory Tests Test 11/06/16 04:34 White Blood Count 26.0 Red Blood Count 3.19 Hemoglobin 10.5 Hematocrit 30.3 Mean Corpuscular Volume 94.8 Mean Corpuscular Hemoglobin 32.8 Mean Corpuscular Hemoglobin 34.6 Concent Red Cell Distribution Width 13.4 Platelet Count 264 Mean Platelet Volume 8.7 Neutrophils (%) (Auto) 92.8 Lymphocytes (%) (Auto) 0.7 Monocytes (%) (Auto) 6.0 Eosinophils (%) (Auto) 0.0 Basophils (%) (Auto) 0.5 Neutrophils # (Auto) 24.1 Lymphocytes # (Auto) 0.2 Monocytes # (Auto) 1.5 Eosinophils # (Auto) 0.0 Basophils # (Auto) 0.1 CBC Comment DIFF FINAL Differential Comment Sodium Level 139 Potassium Level 3.9 Chloride Level 106 Carbon Dioxide Level 21.1 Anion Gap 12 Blood Urea Nitrogen 28 Creatinine 1.44 Estimat Glomerular Filtration 35 Rate Random Glucose 156 Calcium Level 8.5 Phosphorus Level 3.0 Magnesium Level 1.4 Total Bilirubin 0.9 Aspartate Amino Transf 12 (AST/SGOT) Alanine Aminotransferase 12 (ALT/SGPT) Alkaline Phosphatase 66 Total Protein 5.9 Albumin 2.6 Date/Time Procedure Status Source Growth 11/05/16 19:05 Aerobic Blood Culture - Preliminary Resulted Blood Peripheral NO GROWTH IN 1 DAY 11/05/16 19:05 Anaerobic Blood Culture - Preliminary Resulted Blood Peripheral NO GROWTH IN 1 DAY 11/05/16 18:15 Gram Stain - Final Resulted Wound Back 11/05/16 18:15 Wound Culture Resulted Wound Back Pending 11/05/16 18:15 Fungal Smear - Final Resulted Wound Back NO FUNGAL ELEMENTS SEEN. 11/05/16 18:15 Fungal Culture Resulted Wound Back Pending Result Diagram: 11/06/16 0434 11/06/16 0434 Imaging Last Impressions Chest X-Ray 11/05/16 0150 Signed Impressions: Service Date/Time: Saturday, November 05, 2016 01:56 - CONCLUSION: No acute cardiopulmonary disease. Deangelo Monsivais MD Lumbar Spine CT 11/05/16 0000 Signed Impressions: Service Date/Time: Saturday, November 05, 2016 04:14 - CONCLUSION: 1. Postop laminectomy at L4 level with fluid within the operative bed and a few scattered gas bubbles may be postsurgical change and possibly resolving hematoma, however abscess is not excluded. No definite signs of osteomyelitis. 2. Neural foramina compromise left L2-L3, bilateral L4-L5. 3. Bilateral masses compromise L5-S1. 4. Residual slight thecal sac stenosis may be present at L3-4 and L4-5. Deangelo Monsivais MD Head CT 11/05/16 0000 Signed Impressions: Service Date/Time: Saturday, November 05, 2016 16:08 - CONCLUSION: 1. No acute intracranial abnormality. Hussain Sandoval MD Abdomen/Pelvis CT 11/05/16 0000 Signed Impressions: Service Date/Time: Saturday, November 05, 2016 16:12 - CONCLUSION: 1. There is residual IV contrast within the kidneys and bladder. 2. There are no findings to indicate a bowel obstruction. 3. The patient is post hysterectomy. Hussain Sandoval MD Assessment and Plan Assessment and Plan Sepsis present on admission (fever, tachycardia, WBC elevation, Encephalopathy) Surgical site infection at Lumbar Laminectomy (Surgery done at [facility]) Recd call from RN: Gram positive bacteremia likely source Surgical Site infection. Possible Epidural abscess, osteomyelitis of lumbar spine (left side new neuro deficit, acute urinary retention) Acute metabolic encephalopathy: sepsis, ? acute meningitis secondary to spine surgical site infection, epidural abscess Acute renal failure: prerenal, acute urinary retention. Endometrial cancer with mets to multiple bones. PCN allergy clarified. Aspiration risk. Hypoalbuminemia Recs: Allergies reviewed: Rash with PCN many decades back. Changed allergy to update. Start Ceftazidime IV (better neuro levels) DC Azactam IV Start Flagyl IV Start Vanco IV (target 15-20: adjusted, d.w Pharmacist, follow urine output) check CRP preop. Left message for MRI L spine epidural abscess, ? osteomyelitis, myelitis. d/w patient and family: plan of care, reviewed allergies. d.w , RN on floor, Dr.Woodard Baird for strict I/O documentation Follow Cr and UO. Palliative care on Tuesday to address goals of care and provide moral support to the family. Critical thinking, decision making, transfer to ICU. Recd call from RN: Gram positive bacteremia likely source Surgical Site infection. Nichole Nina MD Nov 06, 2016 12:29
[2016-11-06] MEDS ORDERED: BISACODYL 10 MG SUPP RECTAL PRN (12:30)
[2016-11-06] MEDS ORDERED: CHLORHEXIDINE GLUCONATE 2 % 1 PACK (2 CLOTHS) TOP PRN (12:30)
[2016-11-06] MEDS ORDERED: MISCELLANEOUS NURSING INFORMATION XX SCH (12:30)
[2016-11-06] MEDS ORDERED: SODIUM CHLOR 0.9% 1000 ML INJ 1,000 ML IV ONE ×2 (13:00)
[2016-11-06] MEDS ORDERED: SODIUM CHLOR 0.9% 1000 ML INJ 100 ML IV ONE (13:00)
--- NOTE | 2016-11-06 13:09 | HHI.HP ---
HPI Service Critical Care Medicine Primary Care Physician Nestor Kendrick, DO Admission Diagnosis weakness, dehydration, rule out sepsis Diagnosis: Travel History International Travel<30 Days: No Contact w/Intl Traveler <30 Da: No Traveled to Known Affected Are: No History of Present Illness This 86 year-old woman who presents to the emergency department complaining of nausea vomiting, low back pain, and chills on 11/05/2016. She has a history of metastatic endometrial cancer diagnosed 5 years ago initially, as well as chronic back pain. The chronic back pain preceded the malignancy. Most recent PET scan as reported by daughter revealed multiple bony metastasis to include skull, and right upper arm. She underwent an L4-L5 laminectomy about 2 weeks ago in [place],at [facility] . Prior to her surgery , the patient was extremely physically active without any ambulation difficulties.She was doing well initially but over the past several days complained of increased nausea vomiting, increased low back pain, and chills. Upon admission incision has not had any drainage or bleeding,and she denied any urinary symptoms. The patient was admitted to [facility] on 11/05/2016, she subsequently has begun to have leukocytosis, urinary retention and noted drainage from lumbar laminectomy surgical site. Lumbar CT scan revealed postop laminectomy L4 with fluid and scattered bubbles possibly resolving hematoma, abscess could not be excluded. ID and Neurosurgery was consulted.Critical care medicine is consult that for patients noted sepsis, and progressive weakness bilateral lower extremities. History (Limited) History Past Medical History Narrative Medical Endometrial CA Chronic back pain PNEUMOCCOCAL Vaccine (Year): 1 Menopausal: Yes Social History Alcohol Use: No Tobacco Use: No (never) Allergies-Medications Allergies-Medications (Allergen,Severity, Reaction): Coded Allergies: Penicillin (Verified Allergy, Severe, Hives, 11/05/16) Reported Meds & Prescriptions Reported Meds & Active Scripts Active Reported Klor-Con 10 (Potassium Chloride) 10 Meq Tab 10 Meq PO DAILY Ibuprofen 200 Mg Tab 200 Mg PO Q6H PRN Lasix (Furosemide) 20 Mg Tab 20 Mg PO DAILY Tylenol-Codeine #3 (Acetaminophen-Codeine) 300-30 mg Tab 1 Tab PO Q4H PRN ROS Review of Systems Except as stated in HPI: all other systems reviewed are Neg Past Family Social History Allergies: Coded Allergies: Penicillin (Verified Allergy, Severe, Rash, 11/06/16) Rash 2 decades back. Physical Exam Vital Signs Vital Signs Date Time Temp Pulse Resp B/P Pulse Ox O2 Delivery O2 Flow Rate FiO2 11/06/16 11:50 98.7 144 20 185/94 97 11/06/16 07:50 98.9 144 20 162/98 95 11/06/16 04:00 96.8 119 15 154/85 96 11/06/16 01:00 19 11/06/16 01:00 18 11/06/16 00:00 97.0 143 16 126/58 96 11/05/16 20:12 20 11/05/16 20:00 96.3 143 16 110/56 95 11/05/16 17:35 101.2 130 24 171/86 96 Physical Exam GENERAL: Critically ill-appearing elderly female. SKIN: Warm and dry. HEAD: Atraumatic. Normocephalic. EYES: Pupils equal and round. No scleral icterus. No injection or drainage. ENT: No nasal bleeding or discharge. Mucous membranes pink and moist. NECK: Trachea midline. No JVD. CARDIOVASCULAR: Normal rate, regular rhythm. Normotensive RESPIRATORY: No accessory muscle use. Clear to auscultation. Breath sounds equal bilaterally. GASTROINTESTINAL: Abdomen noted firmness along incision line,tender to palpation , nondistended. No guarding. Noted bladder distention. MUSCULOSKELETAL: Extremities without clubbing, cyanosis, or edema. No obvious deformities. NEUROLOGICAL: Awake and alert to name only. Previously alert and oriented 3. Laboratory Laboratory Tests Test 11/06/16 04:34 White Blood Count 26.0 Red Blood Count 3.19 Hemoglobin 10.5 Hematocrit 30.3 Mean Corpuscular Volume 94.8 Mean Corpuscular Hemoglobin 32.8 Mean Corpuscular Hemoglobin 34.6 Concent Red Cell Distribution Width 13.4 Platelet Count 264 Mean Platelet Volume 8.7 Neutrophils (%) (Auto) 92.8 Lymphocytes (%) (Auto) 0.7 Monocytes (%) (Auto) 6.0 Eosinophils (%) (Auto) 0.0 Basophils (%) (Auto) 0.5 Neutrophils # (Auto) 24.1 Lymphocytes # (Auto) 0.2 Monocytes # (Auto) 1.5 Eosinophils # (Auto) 0.0 Basophils # (Auto) 0.1 CBC Comment DIFF FINAL Differential Comment Sodium Level 139 Potassium Level 3.9 Chloride Level 106 Carbon Dioxide Level 21.1 Anion Gap 12 Blood Urea Nitrogen 28 Creatinine 1.44 Estimat Glomerular Filtration 35 Rate Random Glucose 156 Calcium Level 8.5 Phosphorus Level 3.0 Magnesium Level 1.4 Total Bilirubin 0.9 Aspartate Amino Transf 12 (AST/SGOT) Alanine Aminotransferase 12 (ALT/SGPT) Alkaline Phosphatase 66 Total Protein 5.9 Albumin 2.6 Date/Time Procedure Status Source Growth 11/05/16 19:05 Aerobic Blood Culture - Preliminary Resulted Blood Peripheral NO GROWTH IN 1 DAY 11/05/16 19:05 Anaerobic Blood Culture - Preliminary Resulted Blood Peripheral NO GROWTH IN 1 DAY 11/05/16 18:15 Gram Stain - Final Resulted Wound Back 11/05/16 18:15 Wound Culture - Preliminary Resulted Wound Back 11/05/16 18:15 Fungal Smear - Final Resulted Wound Back NO FUNGAL ELEMENTS SEEN. 11/05/16 18:15 Fungal Culture Resulted Wound Back Pending Result Diagram: 11/06/16 0434 11/06/16 0434 Imaging Last Impressions Chest X-Ray 11/05/16 0150 Signed Impressions: Service Date/Time: Saturday, November 05, 2016 01:56 - CONCLUSION: No acute cardiopulmonary disease. Deangelo Monsivais MD Lumbar Spine CT 11/05/16 0000 Signed Impressions: Service Date/Time: Saturday, November 05, 2016 04:14 - CONCLUSION: 1. Postop laminectomy at L4 level with fluid within the operative bed and a few scattered gas bubbles may be postsurgical change and possibly resolving hematoma, however abscess is not excluded. No definite signs of osteomyelitis. 2. Neural foramina compromise left L2-L3, bilateral L4-L5. 3. Bilateral masses compromise L5-S1. 4. Residual slight thecal sac stenosis may be present at L3-4 and L4-5. Deangelo Monsivais MD Head CT 11/05/16 0000 Signed Impressions: Service Date/Time: Saturday, November 05, 2016 16:08 - CONCLUSION: 1. No acute intracranial abnormality. Hussain Sandoval MD Abdomen/Pelvis CT 11/05/16 0000 Signed Impressions: Service Date/Time: Saturday, November 05, 2016 16:12 - CONCLUSION: 1. There is residual IV contrast within the kidneys and bladder. 2. There are no findings to indicate a bowel obstruction. 3. The patient is post hysterectomy. Hussain Sandoval MD Septic Shock Reassessment Heart: Regular rate and rhythm Skin: Warm Peripheral Pulses: Bounding Right Radial Bounding Left Radial Bounding Right Dorsalis Pedis Bounding Left Dorsalis Pedis Capillary Refill: <2 seconds Assessment and Plan Assessment and Plan Plan by systems: Neurologic: Metabolic encephalopathy secondary to sepsis Possible lumbar L4 abscess Patient alert to name only Neurochecks per ICU protocol Obtain ammonia level Neurosurgery consult noted-Dr. Melissa 11/05 CT lumbar spine-postop laminectomy L4 with fluid and scattered bubbles possibly resolving hematoma. Abscess cannot be excluded. Neural foraminotomy not compromise left L2-3, L4-L5, residual thecal sac stenosis may be present L3 L4, L4-L5,B/L mass compromise L5-S1. Respiratory: Maintain O2 sat greater than 92%, supplemental O2 with nasal cannula 14 L/m Duo nebs every 6 hours scheduled Cardiovascular: Maintain MAP > 65 mmHg Vasopressor support may be needed, to need to monitor Renal: Renal insufficiency Creatinine 1.4, continue IV fluids Monitor BMP -- Strict I/Os FEN/GI: Nothing by mouth for now Heme/ID: Sepsis Leukocytosis IV bolus normal saline 2 L now Maintain 0.9 NaCl IV fluid 125cc/hr ID consulted-Dr. iNna, antibiotics initiated per ID Blood and wound cultures pending Endocrine: Glucose monitoring per ICU protocol -- SSI Prophylaxis: GI Prophylaxis Pepcid DVT Prophylaxis -- SCDs Will hold pharmacological prophylaxis at this time. Possible surgical intervention in the near future Lines: Peripheral IVs 2. Central line if indicated Dispo: Discussed via telephone with Dr. Melissa. Will obtain MRI with and without contrast of the lumbar spine, and screening sagittal series of the spine per his request. This patient remains critically ill with one or more organ systems which are or may become a threat to life. I have spent in excess of 60 minutes discontinuously in the care and management of this patient. This time is exclusive of procedures, and includes, but is not limited to, evaluation of the patient, review of the medical record, discussions with family, consultants, nursing staff, or respiratory therapy, and documentation in the medical record. Code Status Full Discussed Condition With Family to include (reportedly has mild dementia) and daughter, as well as GUTTER INSTALLER at bedside. Juanita Guthrie MD Nov 06, 2016 13:09
[2016-11-06] MEDS: SODIUM CHLOR 0.9% 1000 ML INJ 1,000 ML IV SCH ×2 (13:38→17:13)
[2016-11-06] MEDS: cefTAZidime INJ 2,000 MG in SODIUM CHLORIDE 0.9% INJ 100 ML IV SCH ×2 (13:39→21:12)
[2016-11-06] MEDS: metroNIDAZOLE 500 MG INJ 100 ML IV SCH ×2 (13:40→19:48)
[2016-11-06] MEDS ORDERED: GLUCAGON 1 MG/ML VIAL OTHER PRN (14:15)
[2016-11-06] MEDS ORDERED: DEXTROSE 50% IN WATER 50 ML VIAL(D50) IV PUSH PRN (14:15)
[2016-11-06] MEDS ORDERED: MIDAZOLAM HCL 2 MG/2 ML VIAL IV PRN (15:00)
[2016-11-06] MEDS ORDERED: GADOBENATE DIM PF 529 MG/ML 10ML VIAL (for RAD MRI) IV ONE (15:00)
[2016-11-06] MEDS: RESP: ALBUTEROL 2.5 MG/IPRATROPIUM 0.5 MG NEB (SCH) INH ×2 (15:10→20:51)
--- NOTE | 2016-11-06 15:41 | RADRPT ---
EXAM DATE/TIME: 11/06/2016 14:28 CORRECTION Corrected on: November 06, 2016; [facility] COMPARISON: CT LUMBAR SPINE W CONTRAST, November 05, 2016, 4:14. INDICATIONS : Abscess. CONTRAST: 10 cc Multihance (gadobenate) IV MEDICAL HISTORY : Metastatic, bone. Carcinoma, endometrial SURGICAL HISTORY : Discectomy, lumbar. Fusion, cervical. Hysterectomy. ENCOUNTER: Initial ACUITY: 1 week PAIN SCORE: 6/10 LOCATION: Paraspinal TECHNIQUE: Multiplanar multisequence MRI of the lumbar spine was performed with and without contrast. FINDINGS: The most caudal appearing lumbar vertebra is numbered as L5. VERTEBRAE: Homogeneous signal. Normal alignment. There is evidence of post surgical changes in the soft tissues posterior to the spinal canal at L4-5. As noted on recent CT scan of the lumbar spine. There are usshila paige bony degenerative changes of the lumbar spine. There is disc degeneration with disc space narrow ing at L2-3, L3-4. No abnormal bone marrow edema seen in the vertebral bodies. CONUS: Normal level and configuration. POST CONTRAST: No abnormal areas of contrast enhancement are seen. T12-L1: The thecal sac has a normal diameter. No evidence of disc bulge or protrusion. The neural foramina are patent bilaterally. L1-L2: Mild left lateral bulging with some mild narrowing of the left neural foramina. The right neural fora men is patent. Mild bilateral facet arthritis. L2-L3: Moderate diffuse broad-based bulging with some narrowing of the neural foramina bilaterally. Bilatera l facet arthritis. L3-L4: Moderate diffuse broad-based bulging with some narrowing of the neural foramina bilaterally. There ap pears to be a postoperative hematoma/seroma in the soft tissues just posterior to the spinal canal th is level. This is causing an extradural defect on the posterior aspect of the spinal canal. This deann micheline/seroma measures 3.4 x 1.3 by 3.9 cm. This finding along with the diffuse broad-based bulging david ears to be causing some focal spinal canal stenosis. L4-L5: Moderate diffuse broad-based bulging and narrowing of the neural foramina bilaterally. There continue s to be a postoperative hematoma/seroma in the soft tissues just posterior to the spinal canal. This is causing an extra dural defect in the posterior aspect of the spinal canal. These factors are causi ng some focal spinal canal stenosis. L5-S1: Mild broad-based left lateral bulging with narrowing of the left neural foramina. The right neural fo ramen is patent. There is bilateral facet arthritis. CONCLUSION: 1. Postsurgical changes with a hematoma/seroma is noted in the posterior soft tissues just behind the spinal canal at the levels of L3-4 and L4-5. Abscess cannot be excluded. This postoperative finding measures 3.4 x 1.3 x 3.9 cm. Its creating an extra dural defect on the posterior aspect of the spinal canal. This along with broad-based bulging at L3-4 and L4-5 is causing moderate to prominent spinal canal stenosis. 2. There is primary bony degenerative changes of the lumbar spine with some disc space narrowing at L 2-3 and L3-4. 3. Bilateral facet arthritis at multiple levels. Patrick Chavez MD on November 06, 2016 at 15:27 Board Certified Radiologist. This report was verified electronically. Patrick Chavez MD on November 06, 2016 at 16:01 Board Certified Radiologist. This report was verified electronically.
--- NOTE | 2016-11-06 15:49 | RADRPT ---
EXAM DATE/TIME: 11/06/2016 14:28 [facility] COMPARISON: MRI LUMBAR SPINE W & W/O CONTRAST, November 06, 2016, 14:28. INDICATIONS : Abscess. CONTRAST: 10 cc Multihance (gadobenate) IV MEDICAL HISTORY : Metastatic, bone. Carcinoma, endometrial SURGICAL HISTORY : Discectomy, lumbar. Fusion, cervical. Hysterectomy. ENCOUNTER: Initial ACUITY: 1 day PAIN SCORE: 5/10 LOCATION: Paraspinal TECHNIQUE: Screening MRI of the entire spinal axis was performed in the sagittal and axial planes. FINDINGS: A screening MRI spine was performed. There is abnormal signal in the T2 thoracic vertebral body which may represent bony metastatic disease. There appears to be evidence of previous fusion at C6-7. Ther e appears to be broad based bulging the disc osteophyte complex at C4-5 and C5-6. There is a suggesti on of some increased signal in the body the cord at C4-5 and C5-6 suggestive of myelopathy. There are primary degenerative changes involving the rest of the cervical and thoracic spine. No compression f ractures are demonstrated. There is a mild broad-based bulging at T2-3. There are postsurgical change s with appears to be a hematoma or seroma in the soft tissues just behind the spinal canal at the lev el of L4. On the MRI lumbar spine, this complex fluid collection measured 3.4 x 3.1 x 3.9 cm. An absc ess cannot be completely excluded. CONCLUSION: 1. As noted on the MRI lumbar spine there is a complex fluid collection in the soft tissues posterior to the spinal canal at the level of L4 measuring 3.4 x 3.1 x 3.9 cm suggestive of a postoperative h ematoma/seroma. An abscess cannot be excluded. 2. Abnormal signal in the body of T2 suspicious for bony metastatic disease. 3. Status post fusion of C6-7. 4. Broad-based bulging with disc osteophyte complexes at C4-5 and C5-6. Possible myelopathy in the co rd at this level. Patrick Chavez MD on November 06, 2016 at 15:40 Board Certified Radiologist. This report was verified electronically.
[2016-11-06] MEDS: INSULIN NovoLIN REGULAR SUPPLEMENTAL SCALE SQ SCH ×2 (16:00→20:34)
[2016-11-06] MEDS: FAMOTIDINE 20 MG/2 ML VIAL IV PUSH SCH (17:12)
--- NOTE | 2016-11-06 19:12 | PD.CONS ---
History of Present Illness Service Neurosurgery Consult Requested By Infectious disease, shipping assistant-Dr. Guthrie Reason for Consult Lumbar Wound dehiscence-abscess Primary Care Physician Nestor Kendrick, Diagnoses: History of Present Illness 86-year-old female who according to the family underwent a lumbar laminectomy approximately 2 weeks ago at [facility] in [place]. Patient has a history of metastatic endometrial carcinoma, status post chemotherapy. She is followed by Dr. Marin. Her family states that the patient has had problems with chronic low back pain. They state that after the initial recovery period, she seemed to be doing relatively well following the lumbar spine surgery, and was out shopping last week without significant discomfort. However approximately 2-3 days ago she started having some GI complaints with nausea and more recently emesis as well as some loose stool, and generalized malaise. The family noted a small amount of drainage from the incision on 11/04/16. She became somewhat less alert on 11/05/16 and presented to the emergency room on . A GI consultation was obtained and a CT scan of the abdomen performed. On 11/06/16, she has been noted to have continued mental status changes, although the family states that she was actually little more alert on the afternoon of 11/06/16. She is also developed a low-grade fever and increased white blood cell count. Earlier today, the wound has opened further and there is increased drainage from the wound site. This was discussed with shipping assistant, Dr. Guthrie, while the undersigned was in surgery on 11/06/16 and a MRI of the lumbar spine subsequently obtained. Review of Systems Unable to obtain directly from the patient. Recent symptoms are as noted above as obtained upon discussion from the family. Past Family Social History Allergies: Coded Allergies: Penicillin (Verified Allergy, Severe, Rash, 11/06/16) Rash 2 decades back. Past Medical History Endometrial cancer Past Surgical History Cervical fusion Lumbar laminectomy Reported Medications Reported Meds & Active Scripts Active Reported Klor-Con 10 (Potassium Chloride) 10 Meq Tab 10 Meq PO DAILY Ibuprofen 200 Mg Tab 200 Mg PO Q6H PRN Lasix (Furosemide) 20 Mg Tab 20 Mg PO DAILY Tylenol-Codeine #3 (Acetaminophen-Codeine) 300-30 mg Tab 1 Tab PO Q4H PRN Family History History of diabetes and cardiac disease in the family Social History Does not smoke cigarettes or drink alcohol Physical Exam Vital Signs Vital Signs Date Time Temp Pulse Resp B/P Pulse Ox O2 Delivery O2 Flow Rate FiO2 11/06/16 11:50 98.7 144 20 185/94 97 11/06/16 07:50 98.9 144 20 162/98 95 11/06/16 04:00 96.8 119 15 154/85 96 11/06/16 01:00 19 11/06/16 01:00 18 11/06/16 00:00 97.0 143 16 126/58 96 11/05/16 20:12 20 11/05/16 20:00 96.3 143 16 110/56 95 Physical Exam GENERAL: This is a well-nourished, normally patient, examined in the medical intensive care unit. She appears moderately uncomfortable during examination SKIN: Approximately 2 cm area of wound dehiscence at the lower third of the previous incision site with what appears to be mixed watery serous type drainage and purulent appearing drainage. HEAD: Atraumatic. Normocephalic. No temporal or scalp tenderness. EYES: No scleral icterus. No injection or drainage. ENT: Oropharynx clear NECK: Trachea midline. No JVD or lymphadenopathy. Supple, nontender, no meningeal signs. CARDIOVASCULAR: Regular rate and rhythm without murmurs, gallops, or rubs. RESPIRATORY: Clear to auscultation. Nonlabored GASTROINTESTINAL: Abdomen soft, non-tender, nondistended. No hepato-splenomegaly , or palpable masses. No guarding. MUSCULOSKELETAL: Extremities without clubbing, cyanosis, or edema. No joint tenderness. NEUROLOGICAL: Moderate lethargy. Arouses readily to voice and gentle stimulation, but does not focus her follow very well. She says a few words and response to some questions, but her responses are limited and not always appropriate. Her speech is somewhat slow but clear. Certainly diminished judgment and insight related to the patient's overall decline in mental status. Her family gets a little more response from her. Extraocular movements are intact. Facial motor movements symmetric. Sensation appears to be intact throughout the upper and lower extremities. She has a moderate bilateral grasp spontaneous, but is not following commands well. She moves her feet and legs intermittent with mostly mild motor strength, but testing is difficult due to her decreased mental status, as she is not following commands consistently. Braden's response absent bilateral No ankle clonus Plantar responses are neutral Laboratory Laboratory Tests Test 11/06/16 11/06/16 11/06/16 04:34 14:00 17:20 White Blood Count 26.0 Red Blood Count 3.19 Hemoglobin 10.5 Hematocrit 30.3 Mean Corpuscular Volume 94.8 Mean Corpuscular Hemoglobin 32.8 Mean Corpuscular Hemoglobin 34.6 Concent Red Cell Distribution Width 13.4 Platelet Count 264 Mean Platelet Volume 8.7 Neutrophils (%) (Auto) 92.8 Lymphocytes (%) (Auto) 0.7 Monocytes (%) (Auto) 6.0 Eosinophils (%) (Auto) 0.0 Basophils (%) (Auto) 0.5 Neutrophils # (Auto) 24.1 Lymphocytes # (Auto) 0.2 Monocytes # (Auto) 1.5 Eosinophils # (Auto) 0.0 Basophils # (Auto) 0.1 CBC Comment DIFF FINAL Differential Comment Sodium Level 139 Potassium Level 3.9 Chloride Level 106 Carbon Dioxide Level 21.1 Anion Gap 12 Blood Urea Nitrogen 28 Creatinine 1.44 Estimat Glomerular Filtration 35 Rate Random Glucose 156 Calcium Level 8.5 Phosphorus Level 3.0 Magnesium Level 1.4 Total Bilirubin 0.9 Aspartate Amino Transf 12 (AST/SGOT) Alanine Aminotransferase 12 (ALT/SGPT) Alkaline Phosphatase 66 Total Protein 5.9 Albumin 2.6 Lactic Acid Level 1.2 Ammonia LESS THAN 10 Date/Time Procedure Status Source Growth 11/05/16 19:05 Aerobic Blood Culture - Preliminary Resulted Blood Peripheral NO GROWTH IN 1 DAY 11/05/16 19:05 Anaerobic Blood Culture - Preliminary Resulted Blood Peripheral NO GROWTH IN 1 DAY 11/05/16 18:15 Gram Stain - Final Resulted Wound Back 11/05/16 18:15 Wound Culture - Preliminary Resulted Wound Back 11/05/16 18:15 Fungal Smear - Final Resulted Wound Back NO FUNGAL ELEMENTS SEEN. 11/05/16 18:15 Fungal Culture Resulted Wound Back Pending Result Diagram: 11/06/16 0434 11/06/16 0434 Imaging The patient's MRI of the lumbar spine and screening images of the entire spine have been reviewed by the undersigned. There appears to be relatively large area of abscess in the paraspinous musculature and epidural space at the L4-5 level with rather severe spinal canal compromise and compression of the thecal sac. 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 Previous surgical procedure at the mid cervical region with moderately severe stenosis at C5 6 without definite signal intensity change within the cord. Lumbar Spine MRI 11/06/16 0000 Signed Impressions: Service Date/Time: Sunday, November 06, 2016 14:28 - CONCLUSION: 1. Postsurgical changes with a hematoma/seroma is noted in the posterior soft tissues just behind the spinal canal at the levels of L3-4 and L4-5. Abscess cannot be excluded. This postoperative finding measures 3.4 x 1.3 x 3.9 cm. Its creating an extra dural defect on the posterior aspect of the spinal canal. This along with broad-based bulging at L3-4 and L4-5 is causing moderate to prominent spinal canal stenosis. 2. There is primary bony degenerative changes of the lumbar spine with some disc space narrowing at L2-3 and L3-4. 3. Bilateral facet arthritis at multiple levels. Patrick Chavez MD Entire Spine MRI 11/06/16 0000 Signed Impressions: Service Date/Time: Sunday, November 06, 2016 14:28 - CONCLUSION: 1. As noted on the MRI lumbar spine there is a complex fluid collection in the soft tissues posterior to the spinal canal at the level of L4 measuring 3.4 x 3.1 x 3.9 cm suggestive of a postoperative hematoma/seroma. An abscess cannot be excluded. 2. Abnormal signal in the body of T2 suspicious for bony metastatic disease. 3. Status post fusion of C6-7. 4. Broad-based bulging with disc osteophyte complexes at C4-5 and C5-6. Possible myelopathy in the cord at this level. Patrick Chavez MD Assessment and Plan Assessment and Plan Impression: 1. Postoperative epidural abscess, wound dehiscence 2. Moderately severe cervical stenosis. No definite evidence of myelopathy on examination Plan: Findings discussed at length with the patient's family in the intensive care unit Plan to proceed to surgery today for wound debridement and evacuation of epidural abscess. Procedure, risks, possible complications explained. Consent obtained in the intensive care unit. Pratik Melissa MD Nov 06, 2016 19:12
[2016-11-06] MEDS: SODIUM CHLORIDE 0.9% FLUSH 10 ML FLUSH IV FLUSH SCH (19:48)
[2016-11-06] MEDS ORDERED: GELFOAM SIZE 100 ONE (20:02)
[2016-11-06] MEDS ORDERED: LIDOCAINE 1%/EPINEPHrine 1:100,000 SOLN 50 ML VIAL ONE (20:02)
[2016-11-06] MEDS ORDERED: GENTAMICIN SULFATE 80 MG/2 ML VIAL ONE (20:03)
[2016-11-06] MEDS ORDERED: THROMBIN (TOPICAL) 5,000 UNIT VIAL ONE (20:03)
--- NOTE | 2016-11-06 20:39 | MB ---
cc: ELLI LÓPEZ MD DATE OF CONSULTATION 11/06/16 1931 REASON FOR CONSULTATION Change in mental status HISTORY OF PRESENT ILLNESS This is an 86-year-old woman who comes to the emergency department with low back pain, chills, nausea, vomiting. She apparently had laminectomy about two weeks ago in [facility] and subsequently was sent home. Two days after being home, she started having pain in the area and one night, woke up finding her in bed moaning from pain. She was sent over to the hospital and found to have white count elevation, some urinary retention and drainage from the laminectomy site. A lumbar CT showed postop laminectomy L4 with possible scattered bubbles, possibly resolving hematoma. Abscess could not be excluded. Neurosurgery is pending to see the patient. She is in the ICU. At this point, she has what I am told is leg weakness but it seems right leg weaker than the left. PAST MEDICAL HISTORY Endometrial cancer. Most recent PET scan reported was multiple bony mets including the skull and right upper arm. SOCIAL HISTORY . No alcohol. No tobacco. ALLERGIES PENICILLIN MEDICATIONS Reports meds 1. Potassium 2. Ibuprofen. 3. Lasix. 4. Tylenol. PHYSICAL EXAMINATION VITAL SIGNS: Temperature is 98.4, T max was 101.2, pulse 144, respiratory rate 20, blood pressure 185/94. GENERAL: She is somnolent, arousable. HEENT: Pupils reactive. Face looks symmetrical. She moans. she does not speak. She withdraws her right arm. some minimal withdrawal of the left leg but her right leg is externally deviated. Looking at the incision site, she does have what looks like some sanguinous but also could be purulent discharge from the site. There is a clear area visible where the drainage is coming out from. Microbiology quigley, she grew gram-positive cocci, but there is no other growth in 1 day. Gram stain preliminary of the wound shows rare WBCs and rare gram positive cocci, heavy growth of normal skin zoë, LABORATORY DATA She had a white count yesterday if 15,000, today is 26,000 with a hemoglobin 10.5. Her platelets are 264,000. Coags PTT 33.6. Chemistries - BUN 28, creatinine 1.44, GFR now is 35 down from 84, glucose 156. Lactic acid 1.2. Magnesium 1.4, albumin 2.6. Urine - many mucus, culture is not indicated. Current medications 1. Famotidine 2. Albuterol. 3. Ceftazidime 4. Metronidazole - both q.8 h a. IMPRESSION An 86-year-old woman with encephalopathy likely due to infectious source. Concerning for me would be abscess at the site of her laminectomy, epidural abscess. We will continue the antibiotics per Infectious Disease. She just had an MRI of her lumbar spine awaiting official report but looking at the area looks like there may be an abscess. We will wait for official radiology however. If abscess is seen on this MRI, I would contact neurosurgery to evaluate her Stat. Continue antibiotics. She did have an EEGx. We will take a look at that. I do not think she is having any seizures. I just received the MRI report for lumbosacral spine read as postsurgical changes with a hematoma, seroma, posterior soft tissues behind the spinal canal at level 3-4, 4-5, postop findings measure 3.4 x 1.3 x 3.9 cm creating an extradural defect in the posterior aspect of the spinal canal along with broad-based bulging at L3-4, L4-5, also primary bony degenerate changes seen and facet arthritis at multiple levels. Given these findings, concern would be if this hematoma seroma is actually pressing and causing her to have some weakness. However, etiology of her fever and white count is still concerning for infection. Head CT was negative. She had an abdominal pelvis CT - no findings to indicate obstruction. Continue current care as outlined. Have neurosurgery see and comment on the seroma. MD BAKARI Pratt/ /3:43 PM /8:24 PM
--- NOTE | 2016-11-06 22:57 | MG ---
cc: MALLORY THOMSON M.D. Lab No: [id number] Date: 11/06/16 Age: 86 Sex: F Race: DATE OF 1930 With photic stimulation. EEG is awake, drowsy asleep. CT is negative. HISTORY This is an 86-year-old woman with change in mental status, low back pain status post laminectomy now with discharge and leukocytosis. MEDICATIONS 1. Current medicines are: Antibiotics. DESCRIPTION OF RECORD The patient has background slowing consistent with what looks like an encephalopathic process. ____ 2 to 3 hertz, looks like triphasic waves. EKG looks like a sinus tachycardia. Hyperventilation was not performed. Photic stimulation no significant driving response. IMPRESSION Moderately slow background consistent with encephalopathy likely due to infectious source. No epileptiform features. Mallory Thomson MD DF/LISA /8:47 PM /10:54 PM
[2016-11-07] VITALS (13 sets, daily range): BP systolic 133–170; BP diastolic 57–73; PULSE 83–107; RESP 15–23; TEMP 98.3–99.6; O2SAT 98–100
[2016-11-07] MEDS: SODIUM CHLOR 0.9% 1000 ML INJ 1,000 ML IV SCH ×4 (00:13→23:31)
[2016-11-07] MEDS ORDERED: GENTAMICIN SULFATE 80 MG/2 ML VIAL IRRIGATION ONE (01:00)
[2016-11-07] MEDS ORDERED: LIDOCAINE 1%/EPINEPHrine 1:100,000 SOLN 50 ML VIAL INFIL ONE (01:00)
[2016-11-07] MEDS ORDERED: THROMBIN (TOPICAL) 20,000 UNIT VIAL OTHER ONE (01:00)
[2016-11-07] MEDS ORDERED: GELFOAM SIZE 100 OTHER ONE (01:00)
[2016-11-07] MEDS ORDERED: VANCOMYCIN 500 MG VIAL ONE (02:14)
[2016-11-07] MEDS ORDERED: VANCOMYCIN 500 MG VIAL IRRIGATION ONE (02:20)
[2016-11-07] MEDS ORDERED: fentaNYL CITRATE 250 MCG/5 ML AMP ONE (03:41)
--- NOTE | 2016-11-07 03:47 | PD.OP ---
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 Debridement lumbar wound dehiscence 2. Evacuation lumbar epidural abscess 3. Indirect Repair pre-existing dural tear Anesthesia: Gen. Surgeon: Pratik Melissa Vba Developer(s): Abby Ramos Operation and Findings: Patient was brought into the operating room and general endotracheal anesthesia induced without difficulty Lines were established by anesthesia Jean-Baptiste catheter and sequential compression devices were in place The patient was turned into prone position on the [facility] table with the side bolsters. All extremities were appropriately padded Lumbar region was prepped and draped in a sterile fashion Time-out procedure was performed without personnel present and in agreement The inferior two thirds of the pre-existing lumbar midline incision was already open with the the skin somewhat macerated. The subcutaneous and fascial sutures were visible through the area of wound dehiscence and were removed. The lumbodorsal fascial layer was opened Immediately upon doing so, a moderate amount of purulent abscess was evacuated from the paraspinous and epidural space and specimen was sent for routine culture. The region was irrigated with antibiotic irrigation The microscope was moved into place and used for the remainder of the procedure The edges of the wound site were debrided and any eschar and necrotic debris removed. As the wound was debrided along the subcutaneous tissue and paraspinous musculature, it was noted that there was a steady flow of clear fluid. Initially this was thought to possibly be serous fluid, however further inspection with the microscope along the laminectomy site revealed steady CSF leakage. The Rhoton and Gifford dissectors were used to gently retract the thecal sac away from the edges of the spinal canal at the laminectomy site. The inferior aspect of the L3 spinous process and the entire L4 lamina had been previously resected. A dural tear was noted at the right lateral aspect of the thecal sac at the L4 level. Inspection under high power magnification revealed neural tissue projecting through the region of the dural tear, this at least in part appeared to be some fibers of the exiting nerve root. An attempt was made to directly repair the dural tear. However the lateral location of the tear was very difficult to expose, and there was not a clean tear in the dura, but rather a somewhat wide area of dural tissue loss without definite viable dura at the lateral aspect of the tear to accommodate a direct suture repair. It was thus elected to try to indirectly repair the dural defect with a prepared piece of bovine pericardium to prevent further egress of neural tissue through the dural tear, followed by layers of thin cut Gelfoam and thrombin and Tisseel tissue glue. Additionally,a layer of the surrounding paraspinous musculature and tissue was created with the Metzenbaum scissors and brought down over the defect. A blood clot was allowed to form in this region. A small amount of vancomycin powder was also left in place. The closure was performed with 0 Vicryl for the deep fascia, with 3-0 Vicryl for the subcutaneous closure, 4-0 Vicryl running subcuticular closure. Dressing of sterile Primapore was placed Patient taken to intensive care intubated and in stable condition. The head of bed was kept flat following the procedure including during transport All counts were correct at the end of the case. Estimated blood loss was 20 cc Pratik Melissa MD Nov 07, 2016 03:47
[2016-11-07 03:53] LABS: BLOOD GAS BASE EXCESS -4.7 mmol/L (-2-2); BLOOD GAS CARBOXYHEMOGLOBIN 1.9 % (0-4); BLOOD GAS HCO3 19 mmol/L (22-26); BLOOD GAS METHEMOGLOBIN 1.1 % (0-2); BLOOD GAS O2 HGB SATURATION 97 % (90-100); BLOOD GAS OXYGEN CONTENT 12.5 Vol % (12.0-20.0); BLOOD GAS PCO2 31 mmHg (38-42); BLOOD GAS PO2 191 mmHg (61-120); BLOOD GAS TOTAL HGB 8.9 G/DL (12.0-16.0); CRITICAL VALUE NO; DRAW SITE ALINE; FIO2 50 %; OXYGEN DEVICE VENTILATOR; STAT NO; TEMP CORR TO 98.6; ULNAR PULSE PRESENT; VENT SETTINGS AC15/450/+5
--- NOTE | 2016-11-07 03:55 | HHI.CCPN ---
Subjective Remarks/Hospital Course This 86 year-old woman who presents to the emergency department complaining of nausea vomiting, low back pain, and chills on 11/05/2016. She has a history of metastatic endometrial cancer diagnosed 5 years ago initially, as well as chronic back pain. The chronic back pain preceded the malignancy. Most recent PET scan as reported by daughter revealed multiple bony metastasis to include skull, and right upper arm. She underwent an [facility] . Prior to her surgery , the patient was extremely physically active without any ambulation difficulties.She was doing well initially but over the past several days complained of increased nausea vomiting, increased low back pain, and chills. Upon admission incision has not had any drainage or bleeding,and she denied any urinary symptoms. The patient was admitted to [facility] on 11/05/2016, she subsequently has begun to have leukocytosis, urinary retention and noted drainage from lumbar laminectomy surgical site. Lumbar CT scan revealed postop laminectomy L4 with fluid and scattered bubbles possibly resolving hematoma, abscess could not be excluded. ID and Neurosurgery was consulted.Critical care medicine is consult that for patients noted sepsis, and progressive weakness bilateral lower extremities. Subjective: 11/07 Seen upon return from the OR following lumbar wound debridement and evacuation of epidural abscess by Dr. Melissa. Patient is to remain intubated per Dr. Melissa as she must be maintained with HOB flat due to dural leak (but rotate side to side q2 hours). At present she is not on continuous sedation, but is unresponsive to deep noxious stimuli upon return from general anesthesia. Reportedly large amount of respiratory secretions noted upon intubation by anesthesia. Routine airway per documentation. She received 1800 crystalloid intraoperatively. EBL 20 ml. Objective Vital Signs Date Time Temp Pulse Resp B/P Pulse Ox O2 Delivery O2 Flow Rate FiO2 11/06/16 22:00 117 11/06/16 20:00 97 Nasal Cannula 2.00 11/06/16 20:00 100.3 14 161/74 Intake and Output 11/06/16 11/06/16 11/07/16 08:00 16:00 00:00 Intake Total 3684 ml 600 ml Output Total 750 ml 800 ml Balance 2934 ml -200 ml Result Diagram: 11/06/16 0434 11/06/16 0434 Imaging Last Impressions Chest X-Ray 11/05/16 0150 Signed Impressions: Service Date/Time: Saturday, November 05, 2016 01:56 - CONCLUSION: No acute cardiopulmonary disease. Deangelo Monsivais MD Lumbar Spine CT 11/05/16 0000 Signed Impressions: Service Date/Time: Saturday, November 05, 2016 04:14 - CONCLUSION: 1. Postop laminectomy at L4 level with fluid within the operative bed and a few scattered gas bubbles may be postsurgical change and possibly resolving hematoma, however abscess is not excluded. No definite signs of osteomyelitis. 2. Neural foramina compromise left L2-L3, bilateral L4-L5. 3. Bilateral masses compromise L5-S1. 4. Residual slight thecal sac stenosis may be present at L3-4 and L4-5. Deangelo Monsivais MD Head CT 11/05/16 0000 Signed Impressions: Service Date/Time: Saturday, November 05, 2016 16:08 - CONCLUSION: 1. No acute intracranial abnormality. Hussain Sandoval MD Abdomen/Pelvis CT 11/05/16 0000 Signed Impressions: Service Date/Time: Saturday, November 05, 2016 16:12 - CONCLUSION: 1. There is residual IV contrast within the kidneys and bladder. 2. There are no findings to indicate a bowel obstruction. 3. The patient is post hysterectomy. Hussain Sandoval MD Objective Remarks Drips: 0.9 NaCl at 125 mL per hour. Blood pressure 114/56 pulse 95 (normal sinus rhythm on the monitor) sats 100% GENERAL: Critically ill-appearing elderly female who is orotracheally intubated. SKIN: Warm and dry. HEAD: Atraumatic. Normocephalic. EYES: Pupils 2 mm bilaterally and sluggishly reactive.. No scleral icterus. No injection or drainage. ENT: No nasal bleeding or discharge. NECK: Trachea midline. No JVD. CARDIOVASCULAR: Normal rate, regular rhythm. 2/6 systolic murmur left sternal border RESPIRATORY: No accessory muscle use. ET tube in place. Occasional rhonchi. No wheezes or Rales. On mechanical ventilation ACV tidal volume 450/rate 15/ PEEP 5/FiO2 50% GASTROINTESTINAL: Healed abdominal incision noted. Bowel sounds hypoactive. No tenderness appreciable : Jean-Baptiste in place with light yellow urine output. MUSCULOSKELETAL: Extremities without clubbing, cyanosis, or edema. No obvious deformities. NEUROLOGICAL: Upon arrival: No eye opening. No motor response to deep noxious stimuli. Twenty five minutes after return from OR. Opens eyes, follows commands with squeeze bilateral hands. Does move bilateral feet including plantar flexion against resistance 4+/5 on left. Did not cooperate with motor testing well on the right, but did move her foot to command. Babinski upgoing on the left, not much response on the right. A/P Assessment and Plan Plan by systems: Neurologic: Metabolic encephalopathy secondary to sepsis Lumbar epidural abscess Status post lumbar wound debridement and drainage epidural abscess 11/07/16 (Dr. Melissa) Patient reportedly alert to name only preoperatively Neurochecks every hour. 11/05 CT lumbar spine-postop laminectomy L4 with fluid and scattered bubbles possibly resolving hematoma. Abscess cannot be excluded. Neural foraminotomy not compromise left L2-3, L4-L5, residual thecal sac stenosis may be present L3 L4, L4-L5,B/L mass compromise L5-S1. MRI -post surgical changes with hematoma/seroma ? Abscess L3/L4 and L4/L5. Reportedly persistent dural leak noted intraoperatively. Patient is to remain head of bed down per Dr. Melissa. Ammonia level was 10. EEG 11/06/16moderately slow background consistent with encephalopathy. No epileptiform features. Neurology following, Dr. Thomson NSG following, Dr. Melissa Respiratory: Acute respiratory failure Duo nebs every 6 hours scheduled ACV tidal line 450/rate 15/P5/FiO2 50%. Follow-up ABG as appropriate. Will wean FiO2. Ventilator bundle Check CXR. Cardiovascular: Maintain MAP > 65 mmHg Currently normotensive without vasopressor support FEN/RENAL Acute kidney injury Neurogenic bladder with urinary retention. Hypomagnesemia Urinary retention noted upon Jean-Baptiste insertion. Jean-Baptiste to remain in place for accurate intake and output assessment. Monitor electrolytes and replace as indicated. Received 1800 crystalloid intraoperatively. Continue 0.9 NaCl IV fluid 125cc/hr Follow-up magnesium this morning. GI: Moderate protein energy malnutrition Nothing by mouth. Insert OG and placed to low intermittent wall suction Seen by Dr. Hale, no GI issues identified. ID: Severe sepsis Leukocytosis Antibiotics per infectious disease, Dr. Anayeli Nina HEME: Metastatic Endometrial cancer s/p recent chemotherapy Chronic anemia f/u CBC postoperatively Endocrine: Low-dose insulin sliding scale at bedside glucose every 6 hours. GI Prophylaxis Pepcid DVT Prophylaxis -- SCDs. Hold pharmacologic DVT prophylaxis until approved by neurosurgery. ACCESS: Port accessed right chest. Left radial art line placed in OR 11/07 #1 This patient remains critically ill with one or more organ systems which are or may become a threat to life. CCT 30 minutes exclusive of separately billable procedures. This a.m.0830-patient awake, responsive on low doses of propofol infusion. Noted bilateral movement of feet upon command. The patient remains HOB flat. Contacted family Ms.Brenda Poon (daughter) [phone], updated her on patient's status. Anne Abernathy MD Nov 07, 2016 03:55 Juanita Guthrie MD Nov 07, 2016 08:33
[2016-11-07] MEDS: CHLORHEXIDINE GLUCONATE 2 % 1 PACK (2 CLOTHS) TOP SCH (04:00)
[2016-11-07] MEDS: RESP: ALBUTEROL 2.5 MG/IPRATROPIUM 0.5 MG NEB (SCH) INH ×4 (04:04→20:59)
[2016-11-07] MEDS ORDERED: DEXTROSE 50% IN WATER 50 ML VIAL(D50) IV PUSH PRN (04:15)
[2016-11-07] MEDS ORDERED: GLUCAGON 1 MG/ML VIAL OTHER PRN (04:15)
[2016-11-07] MEDS: metroNIDAZOLE 500 MG INJ 100 ML IV SCH ×3 (04:22→19:57)
[2016-11-07] MEDS: FAMOTIDINE 20 MG/2 ML VIAL IV PUSH SCH ×2 (04:22→16:27)
[2016-11-07] MEDS: PROPOFOL 1000 MG/100 ML INJ 100 ML IV SCH ×2 (04:41→19:39)
[2016-11-07] MEDS: cefTAZidime INJ 2,000 MG in SODIUM CHLORIDE 0.9% INJ 100 ML IV SCH ×3 (05:18→21:15)
[2016-11-07] MEDS: INSULIN ASPART SUPPLEMENTAL SCALE SQ SCH ×4 (05:18→23:31)
[2016-11-07 05:27] LABS: BICARBONATE 22.3 MEQ/L (21.0-32.0); MAGNESIUM 1.4 MG/DL (1.5-2.5); POTASSIUM 3.2 MEQ/L (3.5-5.1)
[2016-11-07] MEDS ORDERED: PHARMACY ORDERED LAB ONE ×2 (05:45→08:45)
[2016-11-07 05:50] LABS: AUTOMATED NEUTROPHIL # 17.9 TH/MM3 (1.8-7.7); BASOPHIL # 0.1 TH/MM3 (0-0.2); BASOPHIL % 0.3 % (0.0-2.0); HEMO FLAGS DIFF FINAL; LYMPHOCYTE # 0.2 TH/MM3 (1.0-4.8); MEAN CELL VOLUME 95.1 FL (80.0-100.0); MEAN CORPUSCULAR HEMOGLOBIN 32.7 PG (27.0-34.0); MEAN CORPUSCULAR HGB CONC 34.4 % (32.0-36.0); MONO % 5.1 % (0.0-8.0); NEUT % 93.6 % (16.0-70.0); PLATELET COUNT 201 TH/MM3 (150-450); RED BLOOD COUNT 2.73 MIL/MM3 (4.00-5.30); RED CELL DISTRIBUTION WIDTH 13.5 % (11.6-17.2); WHITE BLOOD COUNT 19.2 TH/MM3 (4.0-11.0)
--- NOTE | 2016-11-07 06:24 | RADRPT ---
EXAM DATE/TIME: 11/07/2016 04:40 [facility] COMPARISON: CHEST SINGLE AP, November 05, 2016, 1:56. INDICATIONS : Shortness of breath, possible pulmonary disease. MEDICAL HISTORY : Endometrial cancer. SURGICAL HISTORY : Appendectomy. Hysterectomy. Tonsillectomy. Cervical fusion. ENCOUNTER: Subsequent ACUITY: 2 days PAIN SCORE: Non-responsive. LOCATION: Bilateral chest FINDINGS: ET tube and NG tube and right internal jugular [id number] are well placed. The heart size is antonio l. There is increased density at the bases bilaterally. There is also some increased density in the l eft suprahilar region. There is a questionable bone lesion at the proximal right humerus. CONCLUSION: Bibasilar and left suprahilar areas of linear density likely related to atelectasis or mild consolida tion. There is a possible bone lesion in the proximal right humerus. Naveed Michael MD on November 07, 2016 at 6:21 Board Certified Radiologist. This report was verified electronically.
[2016-11-07] MEDS ORDERED: POTASSIUM CHLOR 20 MEQ PREMIX 100 ML IV PRN (08:45)
[2016-11-07] MEDS ORDERED: SODIUM PHOSPHATE INJ 30 MMOL in SODIUM CHLOR 0.9% 250 ML INJ 240 ML IV PRN (08:45)
[2016-11-07] MEDS ORDERED: MAGNESIUM SULFATE INJ 4 GM in SODIUM CHLORIDE 0.9% INJ 92 ML IV PRN (08:45)
[2016-11-07] MEDS ORDERED: POTASSIUM CHLOR 40 MEQ PREMIX 100 ML IV-CENTRAL PRN ×2 (08:45)
[2016-11-07] MEDS ORDERED: MAGNESIUM OXIDE 400 MG TAB PO PRN (08:45)
[2016-11-07] MEDS ORDERED: POTASSIUM PHOSPHATE MONOBASIC 500 MG TAB PO/TUBE PRN (08:45)
[2016-11-07] MEDS: SODIUM CHLORIDE 0.9% FLUSH 10 ML FLUSH IV FLUSH SCH ×2 (09:00→19:57)
--- NOTE | 2016-11-07 09:47 | HHI.PR ---
Subjective Remarks pt now in icu intubated post op lumbar wound drebrided and csf leak repaired Objective Current Medications Medications (Trade) Dose Ordered Sig/Aleja Route PRN Reason Start Time Stop Time Status Last Admin Dose Admin Sodium Chloride 1,000 ml @ 125 mls/hr Q8H IV 11/05/16 07:00 11/06/16 17:13 Pharmacy Profile Note (Vancomycin Consult Pharmacy) ml @ 0 mls/hr UNSCH OTHER 11/05/16 16:45 Acetaminophen 650 mg 650 mg Q4H PRN RECTAL FEVER > 101 11/05/16 18:30 11/05/16 18:30 Ceftazidime 2000 mg/Sodium Chloride 100 ml @ 200 mls/hr Q8H IV 11/06/16 14:00 11/07/16 05:18 Metronidazole (Flagyl 500 Mg Inj) 100 ml @ 100 mls/hr Q8H IV 11/06/16 13:00 11/07/16 04:22 Sodium Chloride (NS Flush) 2 ml UNSCH PRN IV FLUSH FLUSH AFTER USING IV ACCESS 11/06/16 12:30 Sodium Chloride (NS Flush) 2 ml BID IV FLUSH 11/06/16 21:00 11/06/16 19:48 Acetaminophen (Tylenol) 650 mg Q6H PRN PO PAIN 1-10 AND/OR FEVER >101F 11/06/16 12:30 Famotidine (Pepcid Inj) 10 mg Q12H IV PUSH 11/06/16 16:00 11/07/16 04:22 Ondansetron HCl (Zofran Inj) 4 mg Q6H PRN IV NAUSEA OR VOMITING 11/06/16 12:30 Bisacodyl (Dulcolax Supp) 10 mg DAILY PRN RECTAL CONSTIPATION 11/06/16 12:30 Miscellaneous Information 1 Q361D XX 11/06/16 12:30 Chlorhexidine Gluconate (Chlorhexidine 2% Cloth) 3 pack Taper DAILY@04 TOP 11/07/16 04:00 11/03/17 03:59 11/07/16 04:00 Chlorhexidine Gluconate (Chlorhexidine 2% Cloth) 3 pack UNSCH PRN TOP HYGIENIC CARE 11/06/16 12:30 Dextrose (D50w (Vial) Inj) 25 ml UNSCH PRN IV PUSH HYPOGLYCEMIA-SEE COMMENTS 11/06/16 14:15 Glucagon 1 mg 1 mg UNSCH PRN OTHER HYPOGLYCEMIA-SEE COMMENTS 11/06/16 14:15 Propofol (Diprivan 1000 Mg/100ml Inj) 100 ml @ 0 mls/hr TITRATE IV 11/07/16 03:45 11/07/16 04:41 Chlorhexidine Gluconate (Peridex 0.12% Liq) 15 ml BID@08,20 MT 11/07/16 08:00 Dextrose (D50w (Vial) Inj) 25 ml UNSCH PRN IV PUSH HYPOGLYCEMIA-SEE COMMENTS 11/07/16 04:15 Glucagon (Glucagon Inj) 1 mg UNSCH PRN OTHER HYPOGLYCEMIA-SEE COMMENTS 11/07/16 04:15 Insulin Aspart 1 1 Q6H SQ 11/07/16 06:00 Vancomycin HCl/ Sodium Chloride (Vancomycin Inj/ NS 250 ml Inj) 262.5 ml @ 250 mls/hr Q24H IV 11/07/16 09:00 Miscellaneous Information SPECIFIC LAB TO BE NIR... ONCE ONCE .XX 11/10/16 08:45 11/10/16 08:46 Potassium Chloride 100 ml @ 50 mls/hr Q2H PRN IV-CENTRAL For Potassium 2.8 - 3.2 mEq/L 11/07/16 08:45 Potassium Chloride 100 ml @ 50 mls/hr Q2H PRN IV For Potassium 2.8 - 3.2 mEq/L 11/07/16 08:45 Potassium Chloride 100 ml @ 25 mls/hr UNSCH PRN IV-CENTRAL For Potassium 3.3 - 3.5 mEq/L 11/07/16 08:45 Potassium Chloride 100 ml @ 50 mls/hr Q2H PRN IV For Potassium 3.3 - 3.5 mEq/L 11/07/16 08:45 Magnesium Sulfate/ Sodium Chloride (Magnesium Sulfate Inj/NS Inj) 100 ml @ 50 mls/hr UNSCH PRN IV For Magnesium 0.9 - 1.1 mg/dL 11/07/16 08:45 Magnesium Oxide 800 mg 800 mg UNSCH PRN PO For Magnesium 1.2 - 1.6 mg/dL 11/07/16 08:45 Magnesium Sulfate/ Sodium Chloride (Magnesium Sulfate Inj/NS Inj) 100 ml @ 50 mls/hr UNSCH PRN IV For Magnesium 1.2 - 1.6 mg/dL 11/07/16 08:45 Potassium Phosphate 2000 mg 2,000 mg Q4H PRN PO For Phosphorus < 2.5 mg/dL 11/07/16 08:45 Sodium Phosphate/ Sodium Chloride (Sodium Phosphate Inj/NS 250 ml Inj) 250 ml @ 42 mls/hr UNSCH PRN IV For Phosphorus < 2.5 mg/dL 11/07/16 08:45 Potassium Phosphate 2000 mg 2,000 mg UNSCH PRN PO/TUBE SEE LABEL COMMENTS 11/07/16 08:45 Potassium Phosphate/Sodium Chloride (Potassium Phosphate Inj/NS 250 ml Inj) 260 ml @ 42 mls/hr UNSCH PRN IV SEE LABEL COMMENTS 11/07/16 08:45 Vital Signs Date Time Temp Pulse Resp B/P Pulse Ox O2 Delivery O2 Flow Rate FiO2 11/07/16 07:32 100 40 11/07/16 06:00 86 11/07/16 04:05 100 40 11/07/16 04:00 50 11/07/16 04:00 97 11/07/16 04:00 98.8 97 19 134/62 100 139/57 11/07/16 04:00 100 Mechanical Ventilator 50 11/06/16 22:00 117 11/06/16 20:00 97 Nasal Cannula 2.00 11/06/16 20:00 100.3 112 14 161/74 97 11/06/16 20:00 112 11/06/16 16:00 99.4 140 24 138/83 98 11/06/16 12:00 Nasal Cannula 2.00 11/06/16 11:50 98.7 144 20 185/94 97 I/O 11/06/16 11/06/16 11/06/16 11/07/16 11/07/16 11/07/16 07:00 15:00 23:00 07:00 15:00 23:00 Intake Total 3684 ml 600 ml 800 ml Output Total 750 ml 800 ml 750 ml Balance 2934 ml -200 ml 50 ml Intake IV Total 3684 ml 600 ml 800 ml Output Urine Total 750 ml 800 ml 750 ml # Voids 3 # Bowel Movements 0 0 Result Diagram: 11/07/16 0335 11/07/16 0335 Procedures had laminectomy 2 weeks ago Objective Remarks CONSTITUTIONAL/GENERAL: This is an adequately nourished patient, in no apparent distress intubated in icu. TUBES/LINES/DRAINS: SKIN: No jaundice, rashes, or lesions. Skin temperature appropriate. Not diaphoretic. HEAD: Atraumatic. Normocephalic. EYES: Pupils equal and round and reactive. Extraocular motions intact. No scleral icterus. No injection or drainage. Fundi not examined. ENT: Hearing grossly normal. Nose without bleeding or purulent drainage. Throat without visible erythema, exudates, masses, or lesions. NECK: Trachea midline. Supple, nontender. No palpable thyroid enlargement or nodularity. CARDIOVASCULAR: Regular rate and rhythm without murmurs, gallops, or rubs. No JVD. Peripheral pulses symmetric pt has tachacardic pulses. RESPIRATORY/CHEST: Symmetric, unlabored respirations. Clear to auscultation. Breath sounds equal bilaterally. No wheezes, rales, or rhonchi. GASTROINTESTINAL: Abdomen soft, some tenderness nausea resolved nondistended. No hepato-splenomegaly, or palpable masses. No guarding. Bowel sounds present. GENITOURINARY: Without palpable bladder distension. Jean-Baptiste catheter in place. MUSCULOSKELETAL: Extremities without clubbing, cyanosis, or edema. No joint tenderness or effusion noted. No calf tenderness. No mottling or clubbing.lumbar wound with drainage LYMPHATICS: No palpable cervical or supraclavicular adenopathy. NEUROLOGICAL: Awake and alert. Motor and sensory grossly within normal limits. Follows commands. Cognitively sharp. Moves all extremities. PSYCHIATRIC: No obvious anxiety/depression. no apparent hallucinations or other psychotic thought process. Medications and IVs Current Medications Medications (Trade) Dose Ordered Sig/Aleja Route PRN Reason Start Time Stop Time Status Last Admin Dose Admin Sodium Chloride 1,000 ml @ 125 mls/hr Q8H IV 11/05/16 07:00 11/06/16 17:13 Pharmacy Profile Note (Vancomycin Consult Pharmacy) ml @ 0 mls/hr UNSCH OTHER 11/05/16 16:45 Acetaminophen 650 mg 650 mg Q4H PRN RECTAL FEVER > 101 11/05/16 18:30 11/05/16 18:30 Ceftazidime 2000 mg/Sodium Chloride 100 ml @ 200 mls/hr Q8H IV 11/06/16 14:00 11/07/16 05:18 Metronidazole (Flagyl 500 Mg Inj) 100 ml @ 100 mls/hr Q8H IV 11/06/16 13:00 11/07/16 04:22 Sodium Chloride (NS Flush) 2 ml UNSCH PRN IV FLUSH FLUSH AFTER USING IV ACCESS 11/06/16 12:30 Sodium Chloride (NS Flush) 2 ml BID IV FLUSH 11/06/16 21:00 11/06/16 19:48 Acetaminophen (Tylenol) 650 mg Q6H PRN PO PAIN 1-10 AND/OR FEVER >101F 11/06/16 12:30 Famotidine (Pepcid Inj) 10 mg Q12H IV PUSH 11/06/16 16:00 11/07/16 04:22 Ondansetron HCl (Zofran Inj) 4 mg Q6H PRN IV NAUSEA OR VOMITING 11/06/16 12:30 Bisacodyl (Dulcolax Supp) 10 mg DAILY PRN RECTAL CONSTIPATION 11/06/16 12:30 Miscellaneous Information 1 Q361D XX 11/06/16 12:30 Chlorhexidine Gluconate (Chlorhexidine 2% Cloth) 3 pack Taper DAILY@04 TOP 11/07/16 04:00 11/03/17 03:59 11/07/16 04:00 Chlorhexidine Gluconate (Chlorhexidine 2% Cloth) 3 pack UNSCH PRN TOP HYGIENIC CARE 11/06/16 12:30 Dextrose (D50w (Vial) Inj) 25 ml UNSCH PRN IV PUSH HYPOGLYCEMIA-SEE COMMENTS 11/06/16 14:15 Glucagon 1 mg 1 mg UNSCH PRN OTHER HYPOGLYCEMIA-SEE COMMENTS 11/06/16 14:15 Propofol (Diprivan 1000 Mg/100ml Inj) 100 ml @ 0 mls/hr TITRATE IV 11/07/16 03:45 11/07/16 04:41 Chlorhexidine Gluconate (Peridex 0.12% Liq) 15 ml BID@08,20 MT 11/07/16 08:00 Dextrose (D50w (Vial) Inj) 25 ml UNSCH PRN IV PUSH HYPOGLYCEMIA-SEE COMMENTS 11/07/16 04:15 Glucagon (Glucagon Inj) 1 mg UNSCH PRN OTHER HYPOGLYCEMIA-SEE COMMENTS 11/07/16 04:15 Insulin Aspart 1 1 Q6H SQ 11/07/16 06:00 Vancomycin HCl/ Sodium Chloride (Vancomycin Inj/ NS 250 ml Inj) 262.5 ml @ 250 mls/hr Q24H IV 11/07/16 09:00 Miscellaneous Information SPECIFIC LAB TO BE NIR... ONCE ONCE .XX 11/10/16 08:45 11/10/16 08:46 Potassium Chloride 100 ml @ 50 mls/hr Q2H PRN IV-CENTRAL For Potassium 2.8 - 3.2 mEq/L 11/07/16 08:45 Potassium Chloride 100 ml @ 50 mls/hr Q2H PRN IV For Potassium 2.8 - 3.2 mEq/L 11/07/16 08:45 Potassium Chloride 100 ml @ 25 mls/hr UNSCH PRN IV-CENTRAL For Potassium 3.3 - 3.5 mEq/L 11/07/16 08:45 Potassium Chloride 100 ml @ 50 mls/hr Q2H PRN IV For Potassium 3.3 - 3.5 mEq/L 11/07/16 08:45 Magnesium Sulfate/ Sodium Chloride (Magnesium Sulfate Inj/NS Inj) 100 ml @ 50 mls/hr UNSCH PRN IV For Magnesium 0.9 - 1.1 mg/dL 11/07/16 08:45 Magnesium Oxide 800 mg 800 mg UNSCH PRN PO For Magnesium 1.2 - 1.6 mg/dL 11/07/16 08:45 Magnesium Sulfate/ Sodium Chloride (Magnesium Sulfate Inj/NS Inj) 100 ml @ 50 mls/hr UNSCH PRN IV For Magnesium 1.2 - 1.6 mg/dL 11/07/16 08:45 Potassium Phosphate 2000 mg 2,000 mg Q4H PRN PO For Phosphorus < 2.5 mg/dL 11/07/16 08:45 Sodium Phosphate/ Sodium Chloride (Sodium Phosphate Inj/NS 250 ml Inj) 250 ml @ 42 mls/hr UNSCH PRN IV For Phosphorus < 2.5 mg/dL 11/07/16 08:45 Potassium Phosphate 2000 mg 2,000 mg UNSCH PRN PO/TUBE SEE LABEL COMMENTS 11/07/16 08:45 Potassium Phosphate/Sodium Chloride (Potassium Phosphate Inj/NS 250 ml Inj) 260 ml @ 42 mls/hr UNSCH PRN IV SEE LABEL COMMENTS 11/07/16 08:45 Assessment and Plan Problem List: (1) Nausea & vomiting Status: Resolved (2) Weakness Status: Acute (3) Leukocytosis Status: Acute Plan: surgical site debrided wbc improved hr and temp controlled blood cultures show gram pos cocci further id pending (4) Hypokalemia Status: Acute Plan: on potassium replacement protocall Assessment and Plan pt septic transfered to icu case discussed with intensivest dr jensen await ID consult neuro surgical consult also ordered Discussed Condition With nursing Nestor Kendrick DO Nov 07, 2016 09:47
[2016-11-07] MEDS: POTASSIUM PHOSPHATE INJ 30 MMOL in SODIUM CHLOR 0.9% 250 ML INJ 250 ML IV PRN ×2 (10:24→23:53)
[2016-11-07] MEDS: VANCOMYCIN INJ 1,250 MG in SODIUM CHLOR 0.9% 250 ML INJ 250 ML IV SCH (10:24)
[2016-11-07] MEDS: MAGNESIUM SULFATE INJ 2 GM in SODIUM CHLORIDE 0.9% INJ 96 ML IV PRN (10:25)
[2016-11-07] MEDS ORDERED: SODIUM CHLOR 0.9% 250 ML INJ 250 ML IV ONE (12:00)
[2016-11-07] MEDS ORDERED: SODIUM CHLOR 0.9% 1000 ML INJ 1,000 ML IV ONE (12:00)
[2016-11-07] MEDS ORDERED: PHENYLEPH/NS 1000 MCG/10 ML SYR IV ONE (12:00)
--- NOTE | 2016-11-07 12:11 | HHI.IDPN ---
Subjective Subjective Remarks is an 86 y/o CF with PMHx of endometrial cancer s/p chemotherapy 5 yrs back as well as surgery. Patient reportedly had recurrence with endometrial cancer involving multiple bones of the body. She underwent 2nd set of chemotherapy for metastatic endometrial cancer. Her [employer] oncologist is Dr.Kelly Marin. Patient has a port used for chemotherapy. Most recent PET scan as reported by daughter revealed multiple bony metastasis to include skull, and right upper arm. She underwent an L[facility]-L[facility]. Prior to her surgery , the patient was extremely physically active without any ambulation difficulties. She did not have any bowel bladder issues. With this background patient presents to the ED with complains of nausea, vomiting, low back pain, and chills on 11/05/2016. She was doing well initially but over the past several days complained of increased nausea, vomiting, increased low back pain, and chills. Patient's daughter reports discharge from the surgical site beginning the day prior to admission. Upon discussion with RN , patient has been wetting her bed but not voiding. No bleeding. No incontinence of bowel although suspicious bladder overflow secondary to retention. Lumbar CT scan revealed postop laminectomy L4 with fluid and scattered bubbles possibly resolving hematoma, abscess could not be excluded. ID and Critical care medicine is consulted for patients noted sepsis, and progressive weakness bilateral lower extremities. Overnight events reviewed. No fever No rash No diarrhea Returned from OR at 2 am Remains intubated. Not on pressors. Opens eyes spontaneously, wiggles bilateral LE toes. Antibiotics Ceftaz IV Flagyl IV Vanco IV Lines Line sites with no e.o infection. Past Medical History reviewed. Allergies: Coded Allergies: Penicillin (Verified Allergy, Severe, Rash, 11/06/16) Rash 2 decades back. Objective . Vital Signs Date Time Temp Pulse Resp B/P Pulse Ox O2 Delivery O2 Flow Rate FiO2 11/07/16 10:31 100 35 11/07/16 07:32 100 40 11/07/16 06:00 86 11/07/16 04:05 100 40 11/07/16 04:00 50 11/07/16 04:00 97 11/07/16 04:00 98.8 97 19 134/62 100 139/57 11/07/16 04:00 100 Mechanical Ventilator 50 11/06/16 22:00 117 11/06/16 20:00 97 Nasal Cannula 2.00 11/06/16 20:00 100.3 112 14 161/74 97 11/06/16 20:00 112 11/06/16 16:00 99.4 140 24 138/83 98 11/06/16 11/06/16 11/07/16 15:00 23:00 07:00 Intake Total 3684 ml 600 ml 800 ml Output Total 750 ml 800 ml 750 ml Balance 2934 ml -200 ml 50 ml Intake IV Total 3684 ml 600 ml 800 ml Output Urine Total 750 ml 800 ml 750 ml # Voids 3 # Bowel Movements 0 0 . Laboratory Tests Test 11/06/16 11/07/16 04:34 03:35 White Blood Count 26.0 TH/MM3 19.2 TH/MM3 Red Blood Count 3.19 MIL/MM3 2.73 MIL/MM3 Hemoglobin 10.5 GM/DL 8.9 GM/DL Hematocrit 30.3 % 26.0 % Mean Corpuscular Volume 94.8 FL 95.1 FL Mean Corpuscular Hemoglobin 32.8 PG 32.7 PG Mean Corpuscular Hemoglobin 34.6 % 34.4 % Concent Red Cell Distribution Width 13.4 % 13.5 % Platelet Count 264 TH/MM3 201 TH/MM3 Mean Platelet Volume 8.7 FL 8.4 FL Neutrophils (%) (Auto) 92.8 % 93.6 % Lymphocytes (%) (Auto) 0.7 % 1.0 % Monocytes (%) (Auto) 6.0 % 5.1 % Eosinophils (%) (Auto) 0.0 % 0.0 % Basophils (%) (Auto) 0.5 % 0.3 % Neutrophils # (Auto) 24.1 TH/MM3 17.9 TH/MM3 Lymphocytes # (Auto) 0.2 TH/MM3 0.2 TH/MM3 Monocytes # (Auto) 1.5 TH/MM3 1.0 TH/MM3 Eosinophils # (Auto) 0.0 TH/MM3 0.0 TH/MM3 Basophils # (Auto) 0.1 TH/MM3 0.1 TH/MM3 CBC Comment DIFF FINAL DIFF FINAL Differential Comment Laboratory Tests Test 11/06/16 11/06/16 11/06/16 11/07/16 04:34 14:00 17:20 03:35 Sodium Level 139 MEQ/L 140 MEQ/L Potassium Level 3.9 MEQ/L 3.2 MEQ/L Chloride Level 106 MEQ/L 107 MEQ/L Carbon Dioxide Level 21.1 MEQ/L 22.3 MEQ/L Anion Gap 12 MEQ/L 11 MEQ/L Blood Urea Nitrogen 28 MG/DL 20 MG/DL Creatinine 1.44 MG/DL 0.53 MG/DL Estimat Glomerular Filtration 35 ML/MIN 110 ML/MIN Rate Random Glucose 156 MG/DL 135 MG/DL Calcium Level 8.5 MG/DL 8.0 MG/DL Phosphorus Level 3.0 MG/DL 2.0 MG/DL Magnesium Level 1.4 MG/DL 1.4 MG/DL Total Bilirubin 0.9 MG/DL Aspartate Amino Transf 12 U/L (AST/SGOT) Alanine Aminotransferase 12 U/L (ALT/SGPT) Alkaline Phosphatase 66 U/L Total Protein 5.9 GM/DL Albumin 2.6 GM/DL Lactic Acid Level 1.2 mmol/L Ammonia LESS THAN 10 MCMOL/L C-Reactive Protein 17.00 MG/DL Microbiology Date/Time Procedure Status Source Growth 11/05/16 01:50 Aerobic Blood Culture - Preliminary Resulted Blood Peripheral NO GROWTH IN 2 DAYS 11/05/16 01:50 Anaerobic Blood Culture - Preliminary Resulted Blood Peripheral NO GROWTH IN 2 DAYS 11/05/16 01:55 Aerobic Blood Culture - Preliminary Resulted Blood Peripheral NO GROWTH IN 2 DAYS 11/05/16 01:55 Anaerobic Blood Culture - Preliminary Resulted Blood Peripheral NO GROWTH IN 2 DAYS 11/05/16 18:00 Aerobic Blood Culture - Preliminary Resulted Blood Peripheral Staph Sp Coagulase Negative 11/05/16 18:00 Anaerobic Blood Culture - Preliminary Resulted Blood Peripheral NO GROWTH IN 2 DAYS 11/05/16 18:15 Gram Stain - Final Complete Wound Back 11/05/16 18:15 Wound Culture - Final Complete Wound Back 11/05/16 18:15 Fungal Smear - Final Resulted Wound Back NO FUNGAL ELEMENTS SEEN. 11/05/16 18:15 Fungal Culture Resulted Wound Back Pending 11/05/16 19:05 Aerobic Blood Culture - Preliminary Resulted Blood Peripheral Gram Positive Cocci 11/05/16 19:05 Anaerobic Blood Culture - Preliminary Resulted Blood Peripheral NO GROWTH IN 2 DAYS 11/07/16 01:47 Gram Stain - Final Resulted Abscess Back 11/07/16 01:47 Wound Culture Resulted Abscess Back Pending 11/07/16 01:47 Acid Fast Stain Received Abscess Back Pending 11/07/16 01:47 Mycobacterial Culture Received Abscess Back Pending 11/07/16 01:47 Fungal Smear - Final Resulted Abscess Back NO FUNGAL ELEMENTS SEEN. 11/07/16 01:47 Fungal Culture Resulted Abscess Back Pending 11/07/16 10:20 Aerobic Blood Culture Received Blood Peripheral Pending 11/07/16 10:20 Anaerobic Blood Culture Received Blood Peripheral Pending 11/07/16 10:25 Aerobic Blood Culture Received Blood Peripheral Pending 11/07/16 10:25 Anaerobic Blood Culture Received Blood Peripheral Pending Imaging Last Impressions Chest X-Ray 11/07/16 0600 Signed Impressions: Service Date/Time: Monday, November 07, 2016 04:40 - CONCLUSION: Bibasilar and left suprahilar areas of linear density likely related to atelectasis or mild consolidation. There is a possible bone lesion in the proximal right humerus. Naveed Michael MD Lumbar Spine MRI 11/06/16 0000 Signed Impressions: Service Date/Time: Sunday, November 06, 2016 14:28 - CONCLUSION: 1. Postsurgical changes with a hematoma/seroma is noted in the posterior soft tissues just behind the spinal canal at the levels of L3-4 and L4-5. Abscess cannot be excluded. This postoperative finding measures 3.4 x 1.3 x 3.9 cm. Its creating an extra dural defect on the posterior aspect of the spinal canal. This along with broad-based bulging at L3-4 and L4-5 is causing moderate to prominent spinal canal stenosis. 2. There is primary bony degenerative changes of the lumbar spine with some disc space narrowing at L2-3 and L3-4. 3. Bilateral facet arthritis at multiple levels. Patrick Chavez MD Entire Spine MRI 11/06/16 0000 Signed Impressions: Service Date/Time: Sunday, November 06, 2016 14:28 - CONCLUSION: 1. As noted on the MRI lumbar spine there is a complex fluid collection in the soft tissues posterior to the spinal canal at the level of L4 measuring 3.4 x 3.1 x 3.9 cm suggestive of a postoperative hematoma/seroma. An abscess cannot be excluded. 2. Abnormal signal in the body of T2 suspicious for bony metastatic disease. 3. Status post fusion of C6-7. 4. Broad-based bulging with disc osteophyte complexes at C4-5 and C5-6. Possible myelopathy in the cord at this level. Patrick Chavez MD Lumbar Spine CT 11/05/16 0000 Signed Impressions: Service Date/Time: Saturday, November 05, 2016 04:14 - CONCLUSION: 1. Postop laminectomy at L4 level with fluid within the operative bed and a few scattered gas bubbles may be postsurgical change and possibly resolving hematoma, however abscess is not excluded. No definite signs of osteomyelitis. 2. Neural foramina compromise left L2-L3, bilateral L4-L5. 3. Bilateral masses compromise L5-S1. 4. Residual slight thecal sac stenosis may be present at L3-4 and L4-5. Deangelo Monsivais MD Head CT 11/05/16 0000 Signed Impressions: Service Date/Time: Saturday, November 05, 2016 16:08 - CONCLUSION: 1. No acute intracranial abnormality. Hussain Sandoval MD Abdomen/Pelvis CT 11/05/16 0000 Signed Impressions: Service Date/Time: Saturday, November 05, 2016 16:12 - CONCLUSION: 1. There is residual IV contrast within the kidneys and bladder. 2. There are no findings to indicate a bowel obstruction. 3. The patient is post hysterectomy. Hussain Sandoval MD Physical Exam GENERAL: This is a well-nourished, well-developed patient, in no apparent distress. SKIN: No rashes, ecchymoses or lesions. Cool and dry. HEAD: Atraumatic. Normocephalic. No temporal or scalp tenderness. EYES: Pupils equal round and reactive. Extraocular motions intact. No scleral icterus. No injection or drainage. ENT: Nose without bleeding, purulent drainage or septal hematoma. NECK: Intubated CARDIOVASCULAR: RRR RESPIRATORY: Clear to auscultation. Breath sounds equal bilaterally. GASTROINTESTINAL: Abdomen soft, nondistended. Midline old surgical scar intact, suprapubic tenderness noted. MUSCULOSKELETAL: Extremities without clubbing, cyanosis, or edema. No joint tenderness, effusion, or edema noted. No calf tenderness. Negative Homans sign bilaterally. NEUROLOGICAL: Opens eyes, wiggles bilateral toes. Left LE weakness noted 3+/5 in left foot, knee level. No pain or restriction in motion at hip level. Psych: cooperative IV line sites with no e.o infection. Assessment & Plan Remarks Sepsis present on admission (fever, tachycardia, WBC elevation, Encephalopathy) Surgical site infection at Lumbar Laminectomy (Surgery done at [facility]) Gram positive bacteremia likely source Surgical Site infection. 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 Acute metabolic encephalopathy: sepsis, ? acute meningitis secondary to spine surgical site infection, epidural abscess Acute renal failure: prerenal, acute urinary retention. Endometrial cancer with mets to multiple bones. PCN allergy clarified. Aspiration risk. Hypoalbuminemia Recs: Allergies reviewed: Rash with PCN many decades back. Changed allergy to update. Continue Ceftazidime IV (better neuro levels) Continue Flagyl IV Continue Vanco IV (target 15-20: adjusted, d.w Pharmacist, follow urine output) check CRP preop. d.w , RN on floor, d/w and . thinks that it will be difficult to completely treat this infection chances of recurrence due to CSF leak that he was not able to fix. This leak was from recent laminectomy done at [facility] hospital ([facility]). He will d.w family as well. Palliative care consult appropriate given these findings. Also bony mets are a concern. Jean-Baptiste for strict I/O documentation Follow Cr and UO. Palliative care on Tuesday to address goals of care and provide moral support to the family. Critical thinking, decision making, transfer to ICU. Nichole Nina MD Nov 07, 2016 12:11
[2016-11-07] MEDS: CHLORHEXIDINE 0.12% (ORAL KIT) 15 ML CUP MT SCH ×2 (13:42→19:39)
--- NOTE | 2016-11-07 15:03 | HHI.NSPN ---
History Chief Complaint: intubated and sedated Interval History 86-year-old female with history of lumbar laminectomy approximately 2 weeks ago in [place]. Patient presents to the emergency room on 11/05/16 with decreasing mental status, GI symptoms, and subsequent opening of the wound with wound dehiscence and purulent drainage. 11/07/16: Patient to surgery on an urgent basis for evacuation of epidural abscess , wound debridement. Patient found to have pre-existing dural tear with CSF leakage which could not be primarily repaired. Indirect repair of dural tear with blood clot, Gelfoam, thrombin, tissue glue and reclosure of wound site. Exam Results Vital Signs Date Time Temp Pulse Resp B/P Pulse Ox O2 Delivery O2 Flow Rate FiO2 11/07/16 10:31 100 35 11/07/16 06:00 86 11/07/16 04:00 98.8 19 134/62 139/57 11/07/16 04:00 Mechanical Ventilator 11/06/16 20:00 2.00 Intake and Output 11/06/16 11/06/16 11/07/16 08:00 16:00 00:00 Intake Total 3684 ml 600 ml Output Total 750 ml 800 ml Balance 2934 ml -200 ml Physical Examination Patient is examined in the intensive care unit postoperatively. She is intubated and sedated. She does reach up with her arms with mild movement of the lower extremities spontaneous with decreased sedation. Not following commands Head of bed is flat Lumbar dressing is dry and intact Medical Decision Making Impression and Plan Impression: Status post debridement lumbar wound dehiscence, evacuation epidural abscess, indirect closure of CSF leak and dural tear. Dressing remains dry this afternoon. Plan: Discussed with infectious disease and intensive this today. Discussed with family at length in the intensive care unit. Patient remains in critical condition. I advised the family that there are limited options to repair the CSF leak and dural tear. The CSF leak may persist despite most recent attempts to seal the leak. Also the infection including epidural abscess may recur at the operative site, forcing a re- exposure of the area. Patient is at risk for developing meningitis and sepsis. I advised the family that it would be best to continue with the head of bed flat and intubation and sedation to keep her comfortable and avoid straining to allow the CSF leak to seal. She will be monitored closely for signs of recurrent infection or CSF leakage. However further MRI imaging may be problematic, as it will be difficult to determine if she has recurrent abscess versus blood clot formation which is been allowed to form and packing material which has been placed to try to seal the CSF leak. Pratik Melissa MD Nov 07, 2016 15:03
[2016-11-07] MEDS ORDERED: FUROSEMIDE 20 MG/2 ML VIAL IV PUSH ONE (15:45)
[2016-11-07] MEDS ORDERED: fentaNYL 2,500 MCG/NS 250 ML IV SCH (21:00)
[2016-11-07 22:57] LABS: MAGNESIUM 1.7 MG/DL (1.5-2.5)
[2016-11-07 23:02] LABS: POTASSIUM 2.8 MEQ/L (3.5-5.1)
[2016-11-08] VITALS (20 sets, daily range): BP systolic 89–169; BP diastolic 39–77; PULSE 75–103; RESP 15–18; TEMP 98.6–100.4; O2SAT 95–100
[2016-11-08 03:29] LABS: HEMATOCRIT 23.6 % (35.0-46.0); MEAN CELL VOLUME 93.9 FL (80.0-100.0); MEAN CORPUSCULAR HEMOGLOBIN 32.6 PG (27.0-34.0); MEAN CORPUSCULAR HGB CONC 34.8 % (32.0-36.0); PLATELET COUNT 165 TH/MM3 (150-450); RED BLOOD COUNT 2.51 MIL/MM3 (4.00-5.30); RED CELL DISTRIBUTION WIDTH 13.3 % (11.6-17.2); REVIEW FLAG FINAL; WHITE BLOOD COUNT 10.5 TH/MM3 (4.0-11.0)
[2016-11-08] MEDS: RESP: ALBUTEROL 2.5 MG/IPRATROPIUM 0.5 MG NEB (SCH) INH ×4 (03:37→20:29)
[2016-11-08] MEDS: PROPOFOL 1000 MG/100 ML INJ 100 ML IV SCH ×2 (03:46→12:38)
[2016-11-08 03:55] LABS: BICARBONATE 23.8 MEQ/L (21.0-32.0); MAGNESIUM 1.6 MG/DL (1.5-2.5); POTASSIUM 3.7 MEQ/L (3.5-5.1)
[2016-11-08] MEDS: CHLORHEXIDINE GLUCONATE 2 % 1 PACK (2 CLOTHS) TOP SCH (04:00)
[2016-11-08] MEDS: metroNIDAZOLE 500 MG INJ 100 ML IV SCH ×3 (04:53→20:01)
[2016-11-08] MEDS: FAMOTIDINE 20 MG/2 ML VIAL IV PUSH SCH ×2 (04:53→16:01)
[2016-11-08] MEDS: INSULIN ASPART SUPPLEMENTAL SCALE SQ SCH ×4 (06:00→23:49)
--- NOTE | 2016-11-08 06:05 | RADRPT ---
EXAM DATE/TIME: 11/08/2016 03:11 [place] COMPARISON: CHEST SINGLE AP, November 07, 2016, 4:40. INDICATIONS : Shortness of breath, possible pulmonary disease. MEDICAL HISTORY : None. Endometrial cancer. SURGICAL HISTORY : Appendectomy. Hysterectomy. Tonsillectomy. Cervical fusion ENCOUNTER: Subsequent ACUITY: 3 days PAIN SCORE: Non-responsive. LOCATION: Bilateral chest FINDINGS: A single view of the chest demonstrates minimal bibasilar densities and medial bilateral upper lobe d ensities are noted. Heart normal in size. Right-sided portacatheter again seen.. The cardiomediastin al contours are unremarkable. Osseous structures are intact. Sclerotic right humeral bone lesion not ed. Nasogastric tube with tip in stomach. Endotracheal tube unchanged. CONCLUSION: Minimal bibasilar and upper lobe densities. Jacinto Blanco MD on November 08, 2016 at 6:00 Board Certified Radiologist. This report was verified electronically.
[2016-11-08] MEDS: cefTAZidime INJ 2,000 MG in SODIUM CHLORIDE 0.9% INJ 100 ML IV SCH ×3 (06:12→21:52)
[2016-11-08] MEDS: SODIUM CHLOR 0.9% 1000 ML INJ 1,000 ML IV SCH (08:14)
[2016-11-08] MEDS: VANCOMYCIN INJ 1,250 MG in SODIUM CHLOR 0.9% 250 ML INJ 250 ML IV SCH (08:15)
[2016-11-08] MEDS: SODIUM CHLORIDE 0.9% FLUSH 10 ML FLUSH IV FLUSH SCH ×2 (08:15→20:01)
[2016-11-08] MEDS: CHLORHEXIDINE 0.12% (ORAL KIT) 15 ML CUP MT SCH ×2 (08:16→20:01)
--- NOTE | 2016-11-08 08:43 | HHI.PR ---
Subjective Remarks Sedated on Diprivan and fentanyl on ventilator. Objective Vital Signs Date Time Temp Pulse Resp B/P Pulse Ox O2 Delivery O2 Flow Rate FiO2 11/08/16 08:20 100 35 11/08/16 06:00 81 11/08/16 04:00 99.1 103 18 128/62 100 135/50 11/08/16 04:00 103 11/08/16 04:00 35 11/08/16 03:41 100 35 11/08/16 02:00 90 11/08/16 00:51 100 35 11/08/16 00:00 35 11/08/16 00:00 89 11/08/16 00:00 98.6 89 16 136/65 100 156/60 11/07/16 22:00 85 11/07/16 20:59 100 35 11/07/16 20:00 35 11/07/16 20:00 83 11/07/16 20:00 99.6 83 15 141/68 98 161/62 11/07/16 16:37 100 35 11/07/16 16:00 Mechanical Ventilator 40 11/07/16 16:00 99.0 89 16 133/61 100 150/59 11/07/16 16:00 50 11/07/16 14:06 100 35 11/07/16 12:00 98.3 89 15 147/72 100 154/62 11/07/16 12:00 100 Mechanical Ventilator 50 11/07/16 12:00 50 11/07/16 10:31 100 35 I/O 11/07/16 11/07/16 11/07/16 11/08/16 11/08/16 11/08/16 07:00 15:00 23:00 07:00 15:00 23:00 Intake Total 800 ml 2345 ml 1279 ml Output Total 750 ml 2350 ml 300 ml Balance 50 ml -5 ml 979 ml Intake IV Total 800 ml 2345 ml 1279 ml Output Urine Total 750 ml 2350 ml 300 ml Gastric Drainage Total 0 ml # Bowel Movements 0 0 0 Result Diagram: 11/08/1631411/08/16314 Imaging Last 48 hours Impressions Chest X-Ray 11/08/16 0600 Signed Impressions: Service Date/Time: Tuesday, November 08, 2016 03:11 - CONCLUSION: Minimal bibasilar and upper lobe densities. Jacinto Blanco MD Chest X-Ray 11/07/16 0600 Signed Impressions: Service Date/Time: Monday, November 07, 2016 04:40 - CONCLUSION: Bibasilar and left suprahilar areas of linear density likely related to atelectasis or mild consolidation. There is a possible bone lesion in the proximal right humerus. Naveed Michael MD Procedures evacuation of epidural abscess 11/07 had laminectomy 2 weeks ago Objective Remarks GENERAL: Sedated on ventilator SKIN: Warm and dry. Lumbar dressing on back HEAD: Normocephalic. EYES: No scleral icterus. No injection or drainage. NECK: Supple, trachea midline. No JVD or lymphadenopathy. CARDIOVASCULAR: Regular rate and rhythm without murmurs, gallops, or rubs. RESPIRATORY: Breath sounds equal bilaterally. No accessory muscle use. Intubated GASTROINTESTINAL: Abdomen soft, non-tender, nondistended. MUSCULOSKELETAL: No cyanosis. Generalized edema Medications and IVs Current Medications Medications (Trade) Dose Ordered Sig/Aleja Route Start Time Stop Time Status Last Admin Sodium Chloride 1,000 ml @ 125 mls/hr Q8H IV 11/05/16 07:00 11/08/16 08:14 (Vancomycin Consult Pharmacy) ml @ 0 mls/hr UNSCH OTHER 11/05/16 16:45 Acetaminophen 650 mg 650 mg Q4H PRN RECTAL 11/05/16 18:30 11/05/16 18:30 Ceftazidime 2000 mg/Sodium Chloride 100 ml @ 200 mls/hr Q8H IV 11/06/16 14:00 11/08/16 06:12 (Flagyl 500 Mg Inj) 100 ml @ 100 mls/hr Q8H IV 11/06/16 13:00 11/08/16 04:53 (NS Flush) 2 ml UNSCH PRN IV FLUSH 11/06/16 12:30 (NS Flush) 2 ml BID IV FLUSH 11/06/16 21:00 11/07/16 19:57 (Tylenol) 650 mg Q6H PRN PO 11/06/16 12:30 (Zofran Inj) 4 mg Q6H PRN IV 11/06/16 12:30 (Dulcolax Supp) 10 mg DAILY PRN RECTAL 11/06/16 12:30 Miscellaneous Information 1 Q361D XX 11/06/16 12:30 (Chlorhexidine 2% Cloth) 3 pack Taper DAILY@04 TOP 11/07/16 04:00 11/03/17 03:59 11/08/16 04:00 (Chlorhexidine 2% Cloth) 3 pack UNSCH PRN TOP 11/06/16 12:30 (D50w (Vial) Inj) 25 ml UNSCH PRN IV PUSH 11/06/16 14:15 Glucagon 1 mg 1 mg UNSCH PRN OTHER 11/06/16 14:15 (Diprivan 1000 Mg/100ml Inj) 100 ml @ 0 mls/hr TITRATE IV 11/07/16 03:45 11/08/16 03:46 (Peridex 0.12% Liq) 15 ml BID@08,20 MT 11/07/16 08:00 11/08/16 08:16 (D50w (Vial) Inj) 25 ml UNSCH PRN IV PUSH 11/07/16 04:15 (Glucagon Inj) 1 mg UNSCH PRN OTHER 11/07/16 04:15 Insulin Aspart 1 1 Q6H SQ 11/07/16 06:00 (Vancomycin Inj/ NS 250 ml Inj) 262.5 ml @ 250 mls/hr Q24H IV 11/07/16 09:00 11/08/16 08:15 Miscellaneous Information SPECIFIC LAB TO BE NIR... ONCE ONCE .XX 11/10/16 08:45 11/10/16 08:46 Potassium Chloride 100 ml @ 50 mls/hr Q2H PRN IV-CENTRAL 11/07/16 08:45 11/07/16 23:30 Potassium Chloride 100 ml @ 50 mls/hr Q2H PRN IV 11/07/16 08:45 Potassium Chloride 100 ml @ 25 mls/hr UNSCH PRN IV-CENTRAL 11/07/16 08:45 Potassium Chloride 100 ml @ 50 mls/hr Q2H PRN IV 11/07/16 08:45 (Magnesium Sulfate Inj/NS Inj) 100 ml @ 50 mls/hr UNSCH PRN IV 11/07/16 08:45 Magnesium Oxide 800 mg 800 mg UNSCH PRN PO 11/07/16 08:45 (Magnesium Sulfate Inj/NS Inj) 100 ml @ 50 mls/hr UNSCH PRN IV 11/07/16 08:45 11/07/16 10:25 Potassium Phosphate 2000 mg 2,000 mg Q4H PRN PO 11/07/16 08:45 (Sodium Phosphate Inj/NS 250 ml Inj) 250 ml @ 42 mls/hr UNSCH PRN IV 11/07/16 08:45 Potassium Phosphate 2000 mg 2,000 mg UNSCH PRN PO/TUBE 11/07/16 08:45 (Potassium Phosphate Inj/NS 250 ml Inj) 260 ml @ 42 mls/hr UNSCH PRN IV 11/07/16 08:45 11/07/16 23:53 Famotidine 20 mg 20 mg Q12H IV PUSH 11/07/16 16:00 11/08/16 04:53 (fentaNYL DRIP) 250 ml @ 0 mls/hr TITRATE IV 11/07/16 21:00 11/07/16 21:10 Assessment and Plan Problem List: (1) Spinal epidural abscess Status: Acute Plan: Patient to surgery on an urgent basis on the for evacuation of epidural abscess, wound debridement. Patient found to have pre-existing dural tear with CSF leakage which could not be primarily repaired. Indirect repair of dural tear with blood clot, Gelfoam, thrombin, tissue glue and reclosure of wound site. Dressing on site. Patient lying flat Palliative care consult ordered. (2) Sepsis Status: Acute Plan: ID consulted and managing. Positive blood cultures. On antibiotics. WBC down to 10.5 today. 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 On ventilator with Diprivan and fentanyl for sedation (4) Anemia Status: Acute Plan: HGB 8.2. Will monitor Assessment and Plan Assessment and plan discussed with Dr. Kendrick. Palliative care consulted. Dayanara Barbour Nov 08, 2016 08:43
--- NOTE | 2016-11-08 10:57 | HHI.GIFU ---
GI Follow-up Note Consult Follow-up Subjective: Patient intubated and sedated. TPN started. Pepcid for GI prophylaxis. Op Note seen. Drop in H&H noted. Objective: PHYSICAL EXAMINATION: Vitals signs stable No fever ABDOMEN: Soft, nondistended. Available Data (labs, X- Rays, Procedues) : Renal fx and leukocytosis improved. ASSESSMENT/PLAN: 1. Lumbar wound abscess with CSF dural leak s/p debridement and indirect repair of leak. Nothing to add. Will be available from GI standpoint if needed. Please reconsult. It was a pleasure seeing Inez Leos Thank you for this consult. Entered by: Orlando Barahona MD Nov 08, 2016 10:57
--- NOTE | 2016-11-08 10:59 | HHI.CCPN ---
Subjective Remarks/Hospital Course This 86 year-old woman who presents to the emergency department complaining of nausea vomiting, low back pain, and chills on 11/05/2016. She has a history of metastatic endometrial cancer diagnosed 5 years ago initially, as well as chronic back pain. The chronic back pain preceded the malignancy. Most recent PET scan as reported by daughter revealed multiple bony metastasis to include skull, and right upper arm. She underwent an L4-L5 laminectomy about [facility] weeks ago [facility] . Prior to her surgery , the patient was extremely physically active without any ambulation difficulties.She was doing well initially but over the past several days complained of increased nausea vomiting, increased low back pain, and chills. Upon admission incision has not had any drainage or bleeding,and she denied any urinary symptoms. The patient was admitted to [facility] on 11/05/2016, she subsequently has begun to have leukocytosis, urinary retention and noted drainage from lumbar laminectomy surgical site. Lumbar CT scan revealed postop laminectomy L4 with fluid and scattered bubbles possibly resolving hematoma, abscess could not be excluded. ID and Neurosurgery was consulted.Critical care medicine is consult that for patients noted sepsis, and progressive weakness bilateral lower extremities. Subjective: 11/07 Seen upon return from the OR following lumbar wound debridement and evacuation of epidural abscess by Dr. Melissa. Patient is to remain intubated per Dr. Melissa as she must be maintained with HOB flat due to dural leak (but rotate side to side q2 hours). At present she is not on continuous sedation, but is unresponsive to deep noxious stimuli upon return from general anesthesia. Reportedly large amount of respiratory secretions noted upon intubation by anesthesia. Routine airway per documentation. She received 1800 crystalloid intraoperatively. EBL 20 ml. 11/08: Afebrile. Patient remains on propofol infusion, moving bilateral upper and lower extremities wiggling toes and moving upper extremities. The patient was inadvertently placed on fentanyl infusion last night for purported pain. Fentanyl infusion discontinued, patient on when necessary pain medicine now currently following commands and denies pain. Leukocytosis resolved, the patient continues on Flagyl, Vancomycin and Ceptazidime per ID Dr. Nina. The patient remains flat in bed, supine position in order to begin nutrition PPN was initiated this a.m.. Extensive discussion with Dr. Melissa and Dr. Nina and palliative care consulted with planned discussion with family today. Objective Vital Signs Date Time Temp Pulse Resp B/P Pulse Ox O2 Delivery O2 Flow Rate FiO2 11/08/16 10:00 85 11/08/16 08:20 100 35 11/08/16 08:00 99.7 16 158/75 164/69 11/07/16 16:00 Mechanical Ventilator 11/06/16 20:00 2.00 Intake and Output 11/07/16 11/07/16 11/08/16 08:00 16:00 00:00 Intake Total 800 ml 2345 ml Output Total 750 ml 2350 ml Balance 50 ml -5 ml Result Diagram: 11/08/16 0315 11/08/16 0315 Other Results Microbiology Date/Time Procedure Status Source Growth 11/05/16 18:15 Gram Stain - Final Complete Wound Back 11/05/16 18:15 Wound Culture - Final Complete Wound Back Imaging Last Impressions Chest X-Ray 11/05/16 0150 Signed Impressions: Service Date/Time: Saturday, November 05, 2016 01:56 - CONCLUSION: No acute cardiopulmonary disease. Deangelo Monsivais MD Lumbar Spine CT 11/05/16 0000 Signed Impressions: Service Date/Time: Saturday, November 05, 2016 04:14 - CONCLUSION: 1. Postop laminectomy at L4 level with fluid within the operative bed and a few scattered gas bubbles may be postsurgical change and possibly resolving hematoma, however abscess is not excluded. No definite signs of osteomyelitis. 2. Neural foramina compromise left L2-L3, bilateral L4-L5. 3. Bilateral masses compromise L5-S1. 4. Residual slight thecal sac stenosis may be present at L3-4 and L4-5. Deangelo Monsivais MD Head CT 11/05/16 0000 Signed Impressions: Service Date/Time: Saturday, November 05, 2016 16:08 - CONCLUSION: 1. No acute intracranial abnormality. Hussain Sandoval MD Abdomen/Pelvis CT 11/05/16 0000 Signed Impressions: Service Date/Time: Saturday, November 05, 2016 16:12 - CONCLUSION: 1. There is residual IV contrast within the kidneys and bladder. 2. There are no findings to indicate a bowel obstruction. 3. The patient is post hysterectomy. Hussain Sandoval MD Objective Remarks Drips: 0.9 NaCl at 42 mL per hour. PPN 42cc/hr GENERAL: Critically ill-appearing elderly female who is orotracheally intubated. SKIN: Warm and dry. HEAD: Atraumatic. Normocephalic. EYES: Pupils 2 mm bilaterally and sluggishly reactive.. No scleral icterus. No injection or drainage. ENT: No nasal bleeding or discharge. NECK: Trachea midline. No JVD. CARDIOVASCULAR: Normal rate, regular rhythm. 2/6 systolic murmur left sternal border RESPIRATORY: No accessory muscle use. ET tube in place. Occasional coarse rhonchi. On mechanical ventilation ACV tidal volume 450/rate 15/PEEP 5/FiO2 40% GASTROINTESTINAL: Healed abdominal incision noted. Bowel sounds hypoactive. No tenderness appreciable : Jean-Baptiste in place with light yellow urine output. MUSCULOSKELETAL: Extremities without clubbing, cyanosis, or edema. No obvious deformities. NEUROLOGICAL: RASS 0. Opens eyes, follows commands with squeeze bilateral hands. Does move bilateral feet including plantar flexion with minimal extension. Urinary Catheter: Yes Jean-Baptiste insert reason: Measure Accurate Output Vascular Central Line Catheter: No A/P Assessment and Plan Plan by systems: Neurologic: Metabolic encephalopathy secondary to sepsis Lumbar epidural abscess Status post lumbar wound debridement and drainage epidural abscess 11/07/16 (Dr. Melissa) GCS 11T-response Neurochecks every 2 hour per ICU protocol 11/05 CT lumbar spine-postop laminectomy L4 with fluid and scattered bubbles possibly resolving hematoma. Abscess cannot be excluded. Neural foraminotomy not compromise left L2-3, L4-L5, residual thecal sac stenosis may be present L3 L4, L4-L5,B/L mass compromise L5-S1. MRI -post surgical changes with hematoma/seroma ? Abscess L3/L4 and L4/L5. 11/07-postop CSF leak, spinal epidural abscess, postoperative wound dehiscence, pre-existing dural tear with repair, status post debridement lumbar wound dehiscence, evacuation of lumbar abscess indirect repair of pre-existing dural tear Reportedly persistent dural leak noted intraoperatively. Patient is to remain head of bed down/supine per Dr. Melissa. 11/06-Ammonia level 10. EEG 11/06/16moderately slow background consistent with encephalopathy. No epileptiform features. Neurology following, Dr. Thomson NSG following, Dr. Melissa Respiratory: Acute respiratory failure Duo nebs every 6 hours scheduled ACV tidal line 450/rate 15/P5/FiO2 40%. Follow-up ABG as appropriate. Will wean FiO2. Ventilator bundle Maintain head of bed 30 Cardiovascular: Maintain MAP > 65 mmHg Currently normotensive without vasopressor support FEN/RENAL Acute kidney injury Neurogenic bladder with urinary retention. Hypomagnesemia Urinary retention noted upon Jean-Baptiste insertion. Jean-Baptiste to remain in place for accurate intake and output assessment. Monitor electrolytes and replace as indicated. Received 1800 crystalloid intraoperatively. Continue 0.9 NaCl IV fluid 42cc/hr Follow-up magnesium this morning. GI: Moderate protein energy malnutrition PPN Patient position supine, unable to begin tube feeds. PPN initiated with lipid supplementation Seen by Dr. Hale, no GI issues identified. ID: Severe sepsis-resolved Leukocytosis-resolved Antibiotics per infectious disease, Dr. Anayeli Nina currently on Flagyl vancomycin and Ceptaz attending HEME: Metastatic Endometrial cancer s/p recent chemotherapy 10/06 Chronic anemia f/u CBC postoperatively Endocrine: Low-dose insulin sliding scale at bedside glucose every 6 hours. GI Prophylaxis Pepcid DVT Prophylaxis -- SCDs. Hold pharmacologic DVT prophylaxis until approved by neurosurgery. ACCESS: Port accessed right chest. Left radial art line placed in OR 11/07 #2 This patient remains critically ill with one or more organ systems which are or may become a threat to life. 33 minutes exclusive of separately billable procedures. The patient remains HOB flat.Palliative care has been consulted the cases been discussed with Dr. Melissa and Dr. Nina prognosis is guarded at this time . Physician Juanita Hutchison MD Nov 08, 2016 10:59
[2016-11-08] MEDS ORDERED: CLINIMIX E 4.25/5 1000 mL- </= 42 mls/hr IV SCH ×3 (11:00)
[2016-11-08] MEDS ORDERED: FAT EMULSION 20% INJ 250 ML IV SCH (11:00)
[2016-11-08 11:10] LABS: POTASSIUM 3.4 MEQ/L (3.5-5.1)
--- NOTE | 2016-11-08 11:54 | PD.CONS ---
Consult Service Palliative Care . Consult Requested By Dr. Anayeli Nina . Primary Care Physician Nestor Kendrick DO . Reason for Consultation a. To assist with evaluation and management of symptoms including: pain, b. To assist medical decision maker(s) with: better understanding of current medical conditions; weighing benefits/burdens of medical treatment options; making medical treatment decisions. . (LEOBARDO ZEEMISSAEL DONAHUE) HPI History of Present Illness Mrs. Leos is an 86-year-old female with past medical history chronic back pain and endometrial cancer originally diagnosed in August 2011. She underwent robotic assisted laparoscopic vaginal hysterectomy with lymphadenectomy staging by Dr. Marin which revealed stage IIIC poorly differentiated endometrial adenocarcinoma. Following surgery she underwent Taxol/ carboplatin chemotherapy, radiation and then additional Taxol/ carboplatin chemotherapy. In 2014, patient had an unusual recurrence manifested as an isolated biopsy proven lesion to the right shoulder at which time she underwent 6 additional cycles of Taxol and carboplatin chemotherapy which she completed in July 2015. She was later found to have PET CT avid lesion in the right humorous and right side of C7 consistent with recurrent disease. She was most recently getting Doxil chemotherapy was on hold for spinal surgery. Patient presented to [facility] ER on 11/05/16 with nausea, vomiting, low back pain, loose stools relieved with Imodium and chills. Initial evaluation revealed: * WBC 15, Hemoccult and 10.6, hematocrit 32.5, platelet 299, neutrophil 90.2% * sodium 137, potassium 3.7, chloride 102, carbon dioxide 25.6, BUN 25, creatinine 0.67, GFR 84, glucose 159 * lactic acid 1.4 * total bilirubin 0.6, AST 15, ALT 13, alkaline phosphatase 79 * troponin less than 0.02 * total protein 6.3, albumin 3.2 * lipase 51 * urinalysis negative * lumbar spine CT postop laminectomy L4 with fluid within the operative bed and few scattered gas bubbles may be postsurgical change or resolving hematoma, abscess could not be excluded, no definite signs of osteomyelitis, neural foramina compromise left L2 L3, bilateral L4 L5, bilateral masses compromise L5 S1, residual thecal sac stenosis may be present at L3 4 and L4 5. * CT head no acute intracranial abnormality * CT abdomen/pelvis residual IV contrast in the kidneys and bladder, no findings to indicate bowel instruction, post hysterectomy * chest x-ray no acute cardiopulmonary disease Patient was admitted to ICU with dehydration, weakness, sepsis. Gastroenterology, Dr. Hale was consulted for intractable nausea and vomiting, GI has since signed off case, will be available PRN. Infectious disease Dr. Anayeli Nina and neurosurgery, Dr. Melissa were consulted for possible epidural abscess. Family reported drainage from lumbar surgical site since day prior to presentation. On 11/07/16 patient underwent debridement lumbar wound D has since , evacuation of lumbar epidural abscess, indirect repair of pre-existing dural tear by Dr. Melissa. Patient remains in ICU on mech vent. 11/08/16: per spring former notes: "Afebrile. Patient remains on propofol infusion , moving bilateral upper and lower extremities wiggling toes and moving upper extremities. The patient was inadvertently placed on fentanyl infusion last night for purported pain. Fentanyl infusion discontinued, patient on when necessary pain medicine now currently following commands and denies pain. Leukocytosis resolved, the patient continues on Flagyl, Vancomycin and Ceftazidime per ID Dr. Nina. The patient remains flat in bed, supine position in order to begin nutrition PPN was initiated this a.m." In review of notes neurosurgery, spring former and infectious disease feel it will be difficult to completely treat this infection due to chances of recurrence secondary to CSF leak. Neurosurgery, Dr. Melissa note indicates he advised the family "that it would be best to continue with the head of bed flat and intubation and sedation to keep her comfortable and avoid straining to allow the CSF leak to seal. She will be monitored closely for signs of recurrent infection or CSF leakage. However further MRI imaging may be problematic, as it will be difficult to determine if she has recurrent abscess versus blood clot formation which is been allowed to form and packing material which has been placed to try to seal the CSF leak." Palliative care is consulted to assist with further clarification of treatment goals. . Function/Cognitive Trajectory Patient was functional prior to admission, had lived with chronic back pain for many years. She did not like to take pain medication. She was able to perform ADLs. . (CAMRYN ZEE) Review of Systems ROS Limitations: Intubated (pt unable to speak due to intubation/ sedation, arouses. ROS per family. ) Constitutional: COMPLAINS OF: Fatigue, Change in appetite (decreased), Pain, Generalized weakness Respiratory: COMPLAINS OF: Shortness of breath Gastrointestinal: COMPLAINS OF: Nausea, Vomiting, Anorexia Musculoskeletal: COMPLAINS OF: Back pain (chronic back pain for years prior to cancer diagnosis. ) Hematologic/Lymphatics: COMPLAINS OF: Bruising Neurologic: COMPLAINS OF: Localized weakness (bilateral LE weakness. ) Other ROS: recent inability to void prior to admission. (CAMRYN ZEE) Past Family Social History Coded Allergies: Penicillin (Verified Allergy, Severe, Rash, 11/06/16) Rash 2 decades back. Past Medical History Stage IIIC poorly differentiated endometrial adenocarcinoma diagnosed August 2011 chronic back pain psoriasis - prior radiation to feet for psoriasis . Past Surgical History Benign ovarian cyst removal age 19 lysis of adhesions cataract surgery 2010 appendectomy 1950 tonsillectomy 1948 robotic assisted laparoscopic vaginal hysterectomy and staging August [address] directed biopsy of right shoulder pathology revealed metastatic poorly differentiated adenocarcinoma cervical fusion 1993 L4-L5 laminectomy September 2016 in [place]. . Reported Medications Reported Meds & Active Scripts Active Reported Klor-Con 10 (Potassium Chloride) 10 Meq Tab 10 Meq PO DAILY Ibuprofen 200 Mg Tab 200 Mg PO Q6H PRN Lasix (Furosemide) 20 Mg Tab 20 Mg PO DAILY Tylenol-Codeine #3 (Acetaminophen-Codeine) 300-30 mg Tab 1 Tab PO Q4H PRN . Current Medications Medications (Trade) Dose Ordered Sig/Aleja Route Start Time Stop Time Status Last Admin Sodium Chloride 1,000 ml @ 42 mls/hr [id number] IV 11/05/16 07:00 11/08/16 08:14 (Vancomycin Consult Pharmacy) ml @ 0 mls/hr UNSCH OTHER 11/05/16 16:45 Acetaminophen 650 mg 650 mg Q4H PRN RECTAL 11/05/16 18:30 11/05/16 18:30 Ceftazidime 2000 mg/Sodium Chloride 100 ml @ 200 mls/hr Q8H IV 11/06/16 14:00 11/08/16 06:12 (Flagyl 500 Mg Inj) 100 ml @ 100 mls/hr Q8H IV 11/06/16 13:00 11/08/16 04:53 (NS Flush) 2 ml UNSCH PRN IV FLUSH 11/06/16 12:30 (NS Flush) 2 ml BID IV FLUSH 11/06/16 21:00 11/07/16 19:57 (Tylenol) 650 mg Q6H PRN PO 11/06/16 12:30 (Zofran Inj) 4 mg Q6H PRN IV 11/06/16 12:30 (Dulcolax Supp) 10 mg DAILY PRN RECTAL 11/06/16 12:30 Miscellaneous Information 1 Q361D XX 11/06/16 12:30 (Chlorhexidine 2% Cloth) 3 pack Taper DAILY@04 TOP 11/07/16 04:00 11/03/17 03:59 11/08/16 04:00 (Chlorhexidine 2% Cloth) 3 pack UNSCH PRN TOP 11/06/16 12:30 (D50w (Vial) Inj) 25 ml UNSCH PRN IV PUSH 11/06/16 14:15 Glucagon 1 mg 1 mg UNSCH PRN OTHER 11/06/16 14:15 (Diprivan 1000 Mg/100ml Inj) 100 ml @ 0 mls/hr TITRATE IV 11/07/16 03:45 11/08/16 03:46 (Peridex 0.12% Liq) 15 ml BID@08,20 MT 11/07/16 08:00 11/08/16 08:16 (D50w (Vial) Inj) 25 ml UNSCH PRN IV PUSH 11/07/16 04:15 (Glucagon Inj) 1 mg UNSCH PRN OTHER 11/07/16 04:15 Insulin Aspart 1 1 Q6H SQ 11/07/16 06:00 (Vancomycin Inj/ NS 250 ml Inj) 262.5 ml @ 250 mls/hr Q24H IV 11/07/16 09:00 11/08/16 08:15 Miscellaneous Information SPECIFIC LAB TO BE NIR... ONCE ONCE .XX 11/10/16 08:45 11/10/16 08:46 Potassium Chloride 100 ml @ 50 mls/hr Q2H PRN IV-CENTRAL 11/07/16 08:45 11/07/16 23:30 Potassium Chloride 100 ml @ 50 mls/hr Q2H PRN IV 11/07/16 08:45 Potassium Chloride 100 ml @ 25 mls/hr UNSCH PRN IV-CENTRAL 11/07/16 08:45 Potassium Chloride 100 ml @ 50 mls/hr Q2H PRN IV 11/07/16 08:45 (Magnesium Sulfate Inj/NS Inj) 100 ml @ 50 mls/hr UNSCH PRN IV 11/07/16 08:45 Magnesium Oxide 800 mg 800 mg UNSCH PRN PO 11/07/16 08:45 (Magnesium Sulfate Inj/NS Inj) 100 ml @ 50 mls/hr UNSCH PRN IV 11/07/16 08:45 11/07/16 10:25 Potassium Phosphate 2000 mg 2,000 mg Q4H PRN PO 11/07/16 08:45 (Sodium Phosphate Inj/NS 250 ml Inj) 250 ml @ 42 mls/hr UNSCH PRN IV 11/07/16 08:45 Potassium Phosphate 2000 mg 2,000 mg UNSCH PRN PO/TUBE 11/07/16 08:45 (Potassium Phosphate Inj/NS 250 ml Inj) 260 ml @ 42 mls/hr UNSCH PRN IV 11/07/16 08:45 11/07/16 23:53 Famotidine 20 mg 20 mg Q12H IV PUSH 11/07/16 16:00 11/08/16 04:53 Multivitamins 10 ml/Folic Acid 1 mg/Amino Acids/ Electrolytes/ Dextrose 1,010.2 ml @ 42 mls/hr Q24H IV 11/08/16 11:00 11/08/16 10:30 (Liposyn Iii 20% Inj) 250 ml @ 10 mls/hr Q24H IV 11/08/16 11:00 . Family History Father at age 55 of [place]. Brother at age 47 of [place]. Another brother at age 62 of cirrhosis medication related. Another brother at 70 of complications following a broken neck. Mother in her 80s with history of dementia coronary artery disease and dementia. Daughter has seizures. . Substance Use Tobacco: Never smoked. Alcohol: None. Prescription med abuse: Illicits: Psychosocial History for 67 years. 1 daughter, Anna. Patient spends a portion of the year in [place] and the [place] in [place]. . Spiritual/Cultural Factors Patient is a member of [employer]. 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 (CAMRYN ZEE) Living Will: Never completed Health Care Surrogate: Never completed Durable Power of Soliciting Freight Agent: Never completed Health Care Surrogate(s): Patient is currently incapacitated to make her own health care decisions. According to [place] statutes health care proxy decision-making falls to the patient's spouse. He is supported by their daughter, Anna. . Today's verbally stated goals: Patient is currently unable to participate in treatment goals given clinical condition. Family/friends goals: Family desires continued aggressive care at this time. Considering CODE STATUS. . Ethical and Legal Issues Patient is currently incapacitated to make her own health care decisions. According to [place] statutes health care proxy decision-making falls to the patient's spouse. He is supported by their daughter, Anna. . (CAMRYN ZEE) Physical Exam Vital Signs Date Time Temp Pulse Resp B/P Pulse Ox O2 Delivery O2 Flow Rate FiO2 11/08/16 10:00 85 11/08/16 08:20 100 35 11/08/16 08:00 87 11/08/16 08:00 99.7 87 16 158/75 100 164/69 11/08/16 08:00 35 11/08/16 06:00 81 11/08/16 04:00 99.1 103 18 128/62 100 135/50 11/08/16 04:00 103 11/08/16 04:00 35 11/08/16 03:41 100 35 11/08/16 02:00 90 11/08/16 00:51 100 35 11/08/16 00:00 35 11/08/16 00:00 89 11/08/16 00:00 98.6 89 16 136/65 100 156/60 11/07/16 22:00 85 11/07/16 20:59 100 35 11/07/16 20:00 35 11/07/16 20:00 83 11/07/16 20:00 99.6 83 15 141/68 98 161/62 11/07/16 16:37 100 35 11/07/16 16:00 Mechanical Ventilator 40 11/07/16 16:00 99.0 89 16 133/61 100 150/59 11/07/16 16:00 50 11/07/16 14:06 100 35 11/07/16 12:00 98.3 89 15 147/72 100 154/62 11/07/16 12:00 100 Mechanical Ventilator 50 11/07/16 12:00 50 11/07/16 11/08/16 19:00 07:00 Intake Total 3624 ml Output Total 2650 ml Balance 974 ml Intake IV Total 3624 ml Output Urine Total 2650 ml Gastric Drainage Total 0 ml # Bowel Movements 0 Exam CONSTITUTIONAL/GENERAL: This is critically ill patient, sedated on mechanical ventilation. TUBES/LINES/DRAINS: ETT, OG, right chest port, PIV, Jean-Baptiste, bilateral soft wrist restraints, SCD's. SKIN: No jaundice, rashes, or lesions. Ecchymoses on upper extremities. No wounds seen anteriorly. Skin temperature appropriate. Not diaphoretic. HEAD: Atraumatic. Normocephalic. EYES: Pupils equal and round and sluggish. no scleral icterus. No injection or drainage. ENT: Hearing appears grossly normal, patient opens eyes to voice. Nose without bleeding or purulent drainage. Throat difficult to visualize secondary tubes. NECK: Trachea midline. CARDIOVASCULAR: Regular rate and rhythm. Systolic murmur noted left sternal border. RESPIRATORY/CHEST: Symmetric, unlabored respirations on mechanical event. Occasional course breath sounds. GASTROINTESTINAL: Abdomen soft, non-tender, nondistended. No guarding. Bowel sounds hypoactive. GENITOURINARY: Without palpable bladder distension. Jean-Baptiste catheter in place. MUSCULOSKELETAL: Extremities without clubbing, cyanosis, or edema. No mottling or clubbing. LYMPHATICS: No palpable cervical or supraclavicular adenopathy. NEUROLOGICAL: Awakens easily, squeezes hands bilaterally. Wiggles toes without difficulty. PSYCHIATRIC: sedated. Opens eyes. Calm. . (CAMRYN ZEE-Vivien) Diagnostic Tests Laboratory Laboratory Tests Test 11/06/16 11/06/16 11/06/16 11/07/16 04:34 14:00 17:20 03:35 White Blood Count 26.0 TH/MM3 19.2 TH/MM3 (4.0-11.0) (4.0-11.0) Red Blood Count 3.19 MIL/MM3 2.73 MIL/MM3 (4.00-5.30) (4.00-5.30) Hemoglobin 10.5 GM/DL 8.9 GM/DL (11.6-15.3) (11.6-15.3) Hematocrit 30.3 % 26.0 % (35.0-46.0) (35.0-46.0) Mean Corpuscular Volume 94.8 FL 95.1 FL (80.0-100.0) (80.0-100.0) Mean Corpuscular Hemoglobin 32.8 PG 32.7 PG (27.0-34.0) (27.0-34.0) Mean Corpuscular Hemoglobin 34.6 % 34.4 % Concent (32.0-36.0) (32.0-36.0) Red Cell Distribution Width 13.4 % 13.5 % (11.6-17.2) (11.6-17.2) Platelet Count 264 TH/MM3 201 TH/MM3 (150-450) (150-450) Mean Platelet Volume 8.7 FL 8.4 FL (7.0-11.0) (7.0-11.0) Neutrophils (%) (Auto) 92.8 % 93.6 % (16.0-70.0) (16.0-70.0) Lymphocytes (%) (Auto) 0.7 % 1.0 % (9.0-44.0) (9.0-44.0) Monocytes (%) (Auto) 6.0 % (0.0-8.0) 5.1 % (0.0-8.0) Eosinophils (%) (Auto) 0.0 % (0.0-4.0) 0.0 % (0.0-4.0) Basophils (%) (Auto) 0.5 % (0.0-2.0) 0.3 % (0.0-2.0) Neutrophils # (Auto) 24.1 TH/MM3 17.9 TH/MM3 (1.8-7.7) (1.8-7.7) Lymphocytes # (Auto) 0.2 TH/MM3 0.2 TH/MM3 (1.0-4.8) (1.0-4.8) Monocytes # (Auto) 1.5 TH/MM3 1.0 TH/MM3 (0-0.9) (0-0.9) Eosinophils # (Auto) 0.0 TH/MM3 0.0 TH/MM3 (0-0.4) (0-0.4) Basophils # (Auto) 0.1 TH/MM3 0.1 TH/MM3 (0-0.2) (0-0.2) CBC Comment DIFF FINAL DIFF FINAL Differential Comment Sodium Level 139 MEQ/L 140 MEQ/L (136-145) (136-145) Potassium Level 3.9 MEQ/L 3.2 MEQ/L (3.5-5.1) (3.5-5.1) Chloride Level 106 MEQ/L 107 MEQ/L (98-107) (98-107) Carbon Dioxide Level 21.1 MEQ/L 22.3 MEQ/L (21.0-32.0) (21.0-32.0) Anion Gap 12 MEQ/L (5-15) 11 MEQ/L (5-15) Blood Urea Nitrogen 28 MG/DL (7-18) 20 MG/DL (7-18) Creatinine 1.44 MG/DL 0.53 MG/DL (0.50-1.00) (0.50-1.00) Estimat Glomerular Filtration 35 ML/MIN (>89) 110 ML/MIN Rate (>89) Random Glucose 156 MG/DL 135 MG/DL (74-106) (74-106) Calcium Level 8.5 MG/DL 8.0 MG/DL (8.5-10.1) (8.5-10.1) Phosphorus Level 3.0 MG/DL 2.0 MG/DL (2.5-4.9) (2.5-4.9) Magnesium Level 1.4 MG/DL 1.4 MG/DL (1.5-2.5) (1.5-2.5) Total Bilirubin 0.9 MG/DL (0.2-1.0) Aspartate Amino Transf 12 U/L (15-37) (AST/SGOT) Alanine Aminotransferase 12 U/L (10-53) (ALT/SGPT) Alkaline Phosphatase 66 U/L (45-117) Total Protein 5.9 GM/DL (6.4-8.2) Albumin 2.6 GM/DL (3.4-5.0) Lactic Acid Level 1.2 mmol/L (0.4-2.0) Nasal Screen MRSA (PCR) NEGATIVE (NEGATIVE) Ammonia LESS THAN 10 MCMOL/L (11-32) C-Reactive Protein 17.00 MG/DL (0.00-0.30) Random Vancomycin Level 7.6 COMMENT Test 11/07/16 11/07/16 11/08/16 03:42 21:25 03:15 Blood Gas Puncture Site FREDI Blood Gas Patient Temperature 98.6 Blood Gas HCO3 19 mmol/L (22-26) Blood Gas Base Excess -4.7 mmol/L (-2-2) Blood Gas Oxygen Saturation 97 % (90-100) Arterial Blood pH 7.40 (7.380-7.420) Arterial Blood Partial 31 mmHg (38-42) Pressure CO2 Arterial Blood Partial 191 mmHg Pressure O2 (61-120) Arterial Blood Oxygen Content 12.5 Vol % (12.0-20.0) Arterial Blood 1.9 % (0-4) Carboxyhemoglobin Arterial Blood Methemoglobin 1.1 % (0-2) Blood Gas Hemoglobin 8.9 G/DL (12.0-16.0) Oxygen Delivery Device VENTILATOR Blood Gas Ventilator Setting AC15/450/+5 Blood Gas Inspired Oxygen 50 % Potassium Level 2.8 MEQ/L 3.7 MEQ/L (3.5-5.1) (3.5-5.1) Phosphorus Level 1.5 MG/DL 2.5 MG/DL (2.5-4.9) (2.5-4.9) Magnesium Level 1.7 MG/DL 1.6 MG/DL (1.5-2.5) (1.5-2.5) White Blood Count 10.5 TH/MM3 (4.0-11.0) Red Blood Count 2.51 MIL/MM3 (4.00-5.30) Hemoglobin 8.2 GM/DL (11.6-15.3) Hematocrit 23.6 % (35.0-46.0) Mean Corpuscular Volume 93.9 FL (80.0-100.0) Mean Corpuscular Hemoglobin 32.6 PG (27.0-34.0) Mean Corpuscular Hemoglobin 34.8 % Concent (32.0-36.0) Red Cell Distribution Width 13.3 % (11.6-17.2) Platelet Count 165 TH/MM3 (150-450) Mean Platelet Volume 8.0 FL (7.0-11.0) Sodium Level 143 MEQ/L (136-145) Chloride Level 109 MEQ/L (98-107) Carbon Dioxide Level 23.8 MEQ/L (21.0-32.0) Anion Gap 10 MEQ/L (5-15) Blood Urea Nitrogen 18 MG/DL (7-18) Creatinine 0.35 MG/DL (0.50-1.00) Estimat Glomerular Filtration 177 ML/MIN Rate (>89) Random Glucose 100 MG/DL (74-106) Calcium Level 7.9 MG/DL (8.5-10.1) (CAMRYN ZEE) Result Diagram: 11/08/1631411/08/16 031 Microbiology Microbiology Date/Time Procedure Status Source Growth 11/05/16 18:00 Aerobic Blood Culture - Preliminary Resulted Blood Peripheral Staph Sp Coagulase Negative 11/05/16 18:00 Anaerobic Blood Culture - Preliminary Resulted Blood Peripheral NO GROWTH IN 2 DAYS 11/05/16 18:15 Gram Stain - Final Complete Wound Back 11/05/16 18:15 Wound Culture - Final Complete Wound Back 11/05/16 18:15 Fungal Smear - Final Resulted Wound Back NO FUNGAL ELEMENTS SEEN. 11/05/16 18:15 Fungal Culture Resulted Wound Back Pending 11/05/16 19:05 Aerobic Blood Culture - Preliminary Resulted Blood Peripheral Staph Sp Coagulase Negative 11/05/16 19:05 Anaerobic Blood Culture - Preliminary Resulted Blood Peripheral NO GROWTH IN 2 DAYS 11/07/16 01:47 Gram Stain - Final Resulted Abscess Back 11/07/16 01:47 Wound Culture Resulted Abscess Back Pending 11/07/16 01:47 Acid Fast Stain Received Abscess Back Pending 11/07/16 01:47 Mycobacterial Culture Received Abscess Back Pending 11/07/16 01:47 Fungal Smear - Final Resulted Abscess Back NO FUNGAL ELEMENTS SEEN. 11/07/16 01:47 Fungal Culture Resulted Abscess Back Pending 11/07/16 10:20 Aerobic Blood Culture Received Blood Peripheral Pending 11/07/16 10:20 Anaerobic Blood Culture Received Blood Peripheral Pending 11/07/16 10:25 Aerobic Blood Culture Received Blood Peripheral Pending 11/07/16 10:25 Anaerobic Blood Culture Received Blood Peripheral Pending Imaging Last Impressions Chest X-Ray 11/08/16 0600 Signed Impressions: Service Date/Time: Tuesday, November 08, 2016 03:11 - CONCLUSION: Minimal bibasilar and upper lobe densities. Jacinto Blanco MD Lumbar Spine MRI 11/06/16 0000 Signed Impressions: Service Date/Time: Sunday, November 06, 2016 14:28 - CONCLUSION: 1. Postsurgical changes with a hematoma/seroma is noted in the posterior soft tissues just behind the spinal canal at the levels of L3-4 and L4-5. Abscess cannot be excluded. This postoperative finding measures 3.4 x 1.3 x 3.9 cm. Its creating an extra dural defect on the posterior aspect of the spinal canal. This along with broad-based bulging at L3-4 and L4-5 is causing moderate to prominent spinal canal stenosis. 2. There is primary bony degenerative changes of the lumbar spine with some disc space narrowing at L2-3 and L3-4. 3. Bilateral facet arthritis at multiple levels. Patrick Chavez MD Entire Spine MRI 11/06/16 0000 Signed Impressions: Service Date/Time: Sunday, November 06, 2016 14:28 - CONCLUSION: 1. As noted on the MRI lumbar spine there is a complex fluid collection in the soft tissues posterior to the spinal canal at the level of L4 measuring 3.4 x 3.1 x 3.9 cm suggestive of a postoperative hematoma/seroma. An abscess cannot be excluded. 2. Abnormal signal in the body of T2 suspicious for bony metastatic disease. 3. Status post fusion of C6-7. 4. Broad-based bulging with disc osteophyte complexes at C4-5 and C5-6. Possible myelopathy in the cord at this level. Patrick Chavez MD Lumbar Spine CT 11/05/16 0000 Signed Impressions: Service Date/Time: Saturday, November 05, 2016 04:14 - CONCLUSION: 1. Postop laminectomy at L4 level with fluid within the operative bed and a few scattered gas bubbles may be postsurgical change and possibly resolving hematoma, however abscess is not excluded. No definite signs of osteomyelitis. 2. Neural foramina compromise left L2-L3, bilateral L4-L5. 3. Bilateral masses compromise L5-S1. 4. Residual slight thecal sac stenosis may be present at L3-4 and L4-5. Deangelo Monsivais MD Head CT 11/05/16 0000 Signed Impressions: Service Date/Time: Saturday, November 05, 2016 16:08 - CONCLUSION: 1. No acute intracranial abnormality. Hussain Sandoval MD Abdomen/Pelvis CT 11/05/16 0000 Signed Impressions: Service Date/Time: Saturday, November 05, 2016 16:12 - CONCLUSION: 1. There is residual IV contrast within the kidneys and bladder. 2. There are no findings to indicate a bowel obstruction. 3. The patient is post hysterectomy. Hussain Sandoval MD Procedures * 11/07/16 - Intubation * 11/07/16: debridement lumbar wound dehiscence, evacuation lumbar epidural abscess, indirect repair pre-existing dural tear Dr. Melissa . (CAMRYN ZEE) Patient/Family Conference Present at Family Conference: Met with patient's daughter and granddaughter at bedside. present in room during conversation, however he sleeps during the entire visit. Family Conference Time (mins): 45 Family Conference Location: Bedside Issues Discussed: * Palliative care role, purpose, approach * Additional medical, psychosocial, and spiritual history * Patients general health, functional status, and cognitive changes in the months leading up to the current hospitalization * Patient/family understanding of the current medical problems * Patient/family understanding of prognosis * Patients goals of care as best understood from advance directives and/or conversations and/or values * Current medical treatment options and benefits/burdens of those options * Likely scenarios comparing ongoing aggressive care with a transition to comfort measures only * Questions answered to the best of my ability * Palliative care contact information provided Goals remain aggressive at this time. Family will consider CODE STATUS. They seem to have a good understanding of current medical condition, risk for further setbacks her decline, overall poor prognosis. . (CAMRYN ZEE) Assessment and Plan Disease Oriented Problem List: (1) Spinal epidural abscess (2) Postoperative CSF leak (3) Postoperative wound dehiscence (4) Leukocytosis (5) Sepsis (6) Respiratory failure (7) Anemia (8) Nausea & vomiting (9) Hypokalemia (10) Dural tear (11) Weakness (12) Dehydration Symptom Scale: (1) Back pain 0-10 Scale: Unable to quantify (2) Nausea & vomiting 0-10 Scale: Unable to quantify (3) Weakness 0-10 Scale: Unable to quantify Pertinent Non-Medical Issues Psychosocial: . Spiritual: [employer]. Legal: patient currently incapacitated. No written advance directives. According to [place] statutes health care proxy decision-making falls to patient 's spouse. He is supported by their daughter Anna. Ethical issues impacting care: No known concerns at this time. . Important Contacts * Khari Leos, spouse: [phone] * Anna Poon, daughter: [phone] . Prognosis In review of notes neurosurgery, spring former and infectious disease feel it will be difficult to completely treat this infection due to chances of recurrence secondary to CSF leak. Neurosurgery, Dr. Melissa note indicates he advised the family "that it would be best to continue with the head of bed flat and intubation and sedation to keep her comfortable and avoid straining to allow the CSF leak to seal. She will be monitored closely for signs of recurrent infection or CSF leakage. However further MRI imaging may be problematic, as it will be difficult to determine if she has recurrent abscess versus blood clot formation which is been allowed to form and packing material which has been placed to try to seal the CSF leak." . Code Status: Full Code Plan * Decision Maker: patient currently incapacitated. No written advance directives. According to [place] statutes health care proxy decision-making falls to patient's spouse. He is supported by their daughter Anna. * FULL CODE family considering code status * Palliative care met with patient/ family: family seems to have good understanding of current medical problems, high risk for further setbacks decline or even . Family understands overall poor prognosis. They are considering CODE STATUS. Family desires continued aggressive care at this time. Welcome continued palliative care visits. Offered assistance with [facility] paperwork if needed, as the daughter and granddaughter are here from [place]. * SYMPTOMS: Pain: unable to quantify or qualify pain, pain secondary to epidural abscess, recent surgeries, bedbound status and history of chronic back pain. 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 Weakness: secondary to epidural abscess, infection, dural tear. Continue supine position at this time per neurosurgery recommendations. Dyspnea: currently sedated on mechanical ventilation. No new medication recommendations at this time. * Palliative care number provided. * Palliative care will continue to follow throughout hospital course to assist with symptom management and clarification of goals as needed. . (CAMRYN ZEE) Time Spent Total Floor Time (mins): 60 Face to Face Time (mins): 45 >50% Counseling/Coord of Care: Yes (CAMRYN ZEE) Thank you for the opportunity to participate in the care of Ms. Leos. (CAMRYN ZEE) Attestation To help prompt me to consider important information that might be impacting today's encounter and assessment, information from prior notes written by myself or my colleagues may have been "brought forward" into today's note. My signature on this note, however, is an attestation that I personally performed the exam, history, and/or decision-making noted today, and, unless otherwise indicated, the interactions with patient, family, and staff as well as the review of records all occurred today. I also attest that the listed assessment and stated plan reflect my best clinical judgment today based on the combination of historical information, prior notes, and today's exam/ interactions. When time spent is documented, it refers only to time spent today by the signer, or if indicated, combined time spent today by collaborating physician/nurse practitioner. (CAMRYN ZEE) Collaborating MD Comments . Chart reviewed. Cased discussed with palliative care SWABBER. Above SWABBER note reviewed and I concur. . (Manuel Fernandez MD) CAMRYN ZEE Nov 08, 2016 11:44 Manuel Fernandez MD December 27, 2016 14:51
--- NOTE | 2016-11-08 12:50 | HHI.IDPN ---
Subjective Subjective Remarks is an 86 y/o CF with PMHx of endometrial cancer s/p chemotherapy 5 yrs back as well as surgery. Patient reportedly had recurrence with endometrial cancer involving multiple bones of the body. She underwent 2nd set of chemotherapy for metastatic endometrial cancer. Her [facility] oncologist is Dr.Kelly Marin. Patient has a port used for chemotherapy. Most recent PET scan as reported by daughter revealed multiple bony metastasis to include skull, and right upper arm. She underwent an L[facility]-L5 lamine[facility] about [facility] ago [facility]. Prior to her surgery , the patient was extremely physically active without any ambulation difficulties. She did not have any bowel bladder issues. With this background patient presents to the ED with complains of nausea, vomiting, low back pain, and chills on 11/05/2016. She was doing well initially but over the past several days complained of increased nausea, vomiting, increased low back pain, and chills. Patient's daughter reports discharge from the surgical site beginning the day prior to admission. Upon discussion with RN , patient has been wetting her bed but not voiding. No bleeding. No incontinence of bowel although suspicious bladder overflow secondary to retention. Lumbar CT scan revealed postop laminectomy L4 with fluid and scattered bubbles possibly resolving hematoma, abscess could not be excluded. ID and Critical care medicine is consulted for patients noted sepsis, and progressive weakness bilateral lower extremities. Overnight events reviewed. No fever No rash No diarrhea Remains intubated (35% FiO2, PEEP 5) Not on pressors. Opens eyes spontaneously, wiggles bilateral LE toes. UO marginal. Antibiotics Ceftaz IV Flagyl IV Vanco IV Lines Line sites with no e.o infection. Past Medical History reviewed. Allergies: Coded Allergies: Penicillin (Verified Allergy, Severe, Rash, 11/06/16) Rash 2 decades back. Objective . Vital Signs Date Time Temp Pulse Resp B/P Pulse Ox O2 Delivery O2 Flow Rate FiO2 11/08/16 12:06 100 35 11/08/16 10:00 85 11/08/16 08:20 100 35 11/08/16 08:00 87 11/08/16 08:00 99.7 87 16 158/75 100 164/69 11/08/16 08:00 35 11/08/16 06:00 81 11/08/16 04:00 99.1 103 18 128/62 100 135/50 11/08/16 04:00 103 11/08/16 04:00 35 11/08/16 03:41 100 35 11/08/16 02:00 90 11/08/16 00:51 100 35 11/08/16 00:00 35 11/08/16 00:00 89 11/08/16 00:00 98.6 89 16 136/65 100 156/60 11/07/16 22:00 85 11/07/16 20:59 100 35 11/07/16 20:00 35 11/07/16 20:00 83 11/07/16 20:00 99.6 83 15 141/68 98 161/62 11/07/16 16:37 100 35 11/07/16 16:00 Mechanical Ventilator 40 11/07/16 16:00 99.0 89 16 133/61 100 150/59 11/07/16 16:00 50 11/07/16 14:06 100 35 11/07/16 11/07/16 11/08/16 15:00 23:00 07:00 Intake Total 2345 ml 1279 ml Output Total 2350 ml 300 ml Balance -5 ml 979 ml Intake IV Total 2345 ml 1279 ml Output Urine Total 2350 ml 300 ml Gastric Drainage Total 0 ml # Bowel Movements 0 0 . Laboratory Tests Test 11/07/16 11/08/16 03:35 03:15 White Blood Count 19.2 TH/MM3 10.5 TH/MM3 Red Blood Count 2.73 MIL/MM3 2.51 MIL/MM3 Hemoglobin 8.9 GM/DL 8.2 GM/DL Hematocrit 26.0 % 23.6 % Mean Corpuscular Volume 95.1 FL 93.9 FL Mean Corpuscular Hemoglobin 32.7 PG 32.6 PG Mean Corpuscular Hemoglobin 34.4 % 34.8 % Concent Red Cell Distribution Width 13.5 % 13.3 % Platelet Count 201 TH/MM3 165 TH/MM3 Mean Platelet Volume 8.4 FL 8.0 FL Neutrophils (%) (Auto) 93.6 % Lymphocytes (%) (Auto) 1.0 % Monocytes (%) (Auto) 5.1 % Eosinophils (%) (Auto) 0.0 % Basophils (%) (Auto) 0.3 % Neutrophils # (Auto) 17.9 TH/MM3 Lymphocytes # (Auto) 0.2 TH/MM3 Monocytes # (Auto) 1.0 TH/MM3 Eosinophils # (Auto) 0.0 TH/MM3 Basophils # (Auto) 0.1 TH/MM3 CBC Comment DIFF FINAL Differential Comment Laboratory Tests Test 11/06/16 11/06/16 11/07/16 11/07/16 14:00 17:20 03:35 21:25 Lactic Acid Level 1.2 mmol/L Ammonia LESS THAN 10 MCMOL/L C-Reactive Protein 17.00 MG/DL Sodium Level 140 MEQ/L Potassium Level 3.2 MEQ/L 2.8 MEQ/L Chloride Level 107 MEQ/L Carbon Dioxide Level 22.3 MEQ/L Anion Gap 11 MEQ/L Blood Urea Nitrogen 20 MG/DL Creatinine 0.53 MG/DL Estimat Glomerular Filtration 110 ML/MIN Rate Random Glucose 135 MG/DL Calcium Level 8.0 MG/DL Phosphorus Level 2.0 MG/DL 1.5 MG/DL Magnesium Level 1.4 MG/DL 1.7 MG/DL Test 11/08/16 11/08/16 03:15 09:55 Sodium Level 143 MEQ/L Potassium Level 3.7 MEQ/L 3.4 MEQ/L Chloride Level 109 MEQ/L Carbon Dioxide Level 23.8 MEQ/L Anion Gap 10 MEQ/L Blood Urea Nitrogen 18 MG/DL Creatinine 0.35 MG/DL Estimat Glomerular Filtration 177 ML/MIN Rate Random Glucose 100 MG/DL Calcium Level 7.9 MG/DL Phosphorus Level 2.5 MG/DL 1.8 MG/DL Magnesium Level 1.6 MG/DL Microbiology Date/Time Procedure Status Source Growth 11/05/16 18:00 Aerobic Blood Culture - Final Resulted Blood Peripheral Staphylococcus Intermedius 11/05/16 18:00 Anaerobic Blood Culture - Preliminary Resulted Blood Peripheral NO GROWTH IN 3 DAYS 11/05/16 18:15 Gram Stain - Final Complete Wound Back 11/05/16 18:15 Wound Culture - Final Complete Wound Back 11/05/16 18:15 Fungal Smear - Final Resulted Wound Back NO FUNGAL ELEMENTS SEEN. 11/05/16 18:15 Fungal Culture Resulted Wound Back Pending 11/05/16 19:05 Aerobic Blood Culture - Preliminary Resulted Blood Peripheral Staph Sp Coagulase Negative 11/05/16 19:05 Anaerobic Blood Culture - Preliminary Resulted Blood Peripheral NO GROWTH IN 3 DAYS 11/07/16 01:47 Gram Stain - Final Resulted Abscess Back 11/07/16 01:47 Wound Culture Resulted Abscess Back Pending 11/07/16 01:47 Acid Fast Stain Received Abscess Back Pending 11/07/16 01:47 Mycobacterial Culture Received Abscess Back Pending 11/07/16 01:47 Fungal Smear - Final Resulted Abscess Back NO FUNGAL ELEMENTS SEEN. 11/07/16 01:47 Fungal Culture Resulted Abscess Back Pending 11/07/16 10:20 Aerobic Blood Culture - Preliminary Resulted Blood Peripheral NO GROWTH IN 1 DAY 11/07/16 10:20 Anaerobic Blood Culture - Preliminary Resulted Blood Peripheral NO GROWTH IN 1 DAY 11/07/16 10:25 Aerobic Blood Culture - Preliminary Resulted Blood Peripheral NO GROWTH IN 1 DAY 11/07/16 10:25 Anaerobic Blood Culture - Preliminary Resulted Blood Peripheral NO GROWTH IN 1 DAY Imaging Last Impressions Chest X-Ray 11/07/16 0600 Signed Impressions: Service Date/Time: Monday, November 07, 2016 04:40 - CONCLUSION: Bibasilar and left suprahilar areas of linear density likely related to atelectasis or mild consolidation. There is a possible bone lesion in the proximal right humerus. Naveed Michael MD Lumbar Spine MRI 11/06/16 0000 Signed Impressions: Service Date/Time: Sunday, November 06, 2016 14:28 - CONCLUSION: 1. Postsurgical changes with a hematoma/seroma is noted in the posterior soft tissues just behind the spinal canal at the levels of L3-4 and L4-5. Abscess cannot be excluded. This postoperative finding measures 3.4 x 1.3 x 3.9 cm. Its creating an extra dural defect on the posterior aspect of the spinal canal. This along with broad-based bulging at L3-4 and L4-5 is causing moderate to prominent spinal canal stenosis. 2. There is primary bony degenerative changes of the lumbar spine with some disc space narrowing at L2-3 and L3-4. 3. Bilateral facet arthritis at multiple levels. Patrick Chavez MD Entire Spine MRI 11/06/16 0000 Signed Impressions: Service Date/Time: Sunday, November 06, 2016 14:28 - CONCLUSION: 1. As noted on the MRI lumbar spine there is a complex fluid collection in the soft tissues posterior to the spinal canal at the level of L4 measuring 3.4 x 3.1 x 3.9 cm suggestive of a postoperative hematoma/seroma. An abscess cannot be excluded. 2. Abnormal signal in the body of T2 suspicious for bony metastatic disease. 3. Status post fusion of C6-7. 4. Broad-based bulging with disc osteophyte complexes at C4-5 and C5-6. Possible myelopathy in the cord at this level. Patrick Chavez MD Lumbar Spine CT 11/05/16 0000 Signed Impressions: Service Date/Time: Saturday, November 05, 2016 04:14 - CONCLUSION: 1. Postop laminectomy at L4 level with fluid within the operative bed and a few scattered gas bubbles may be postsurgical change and possibly resolving hematoma, however abscess is not excluded. No definite signs of osteomyelitis. 2. Neural foramina compromise left L2-L3, bilateral L4-L5. 3. Bilateral masses compromise L5-S1. 4. Residual slight thecal sac stenosis may be present at L3-4 and L4-5. Deangelo Monsivais MD Head CT 11/05/16 0000 Signed Impressions: Service Date/Time: Saturday, November 05, 2016 16:08 - CONCLUSION: 1. No acute intracranial abnormality. Hussain Sandoval MD Abdomen/Pelvis CT 11/05/16 0000 Signed Impressions: Service Date/Time: Saturday, November 05, 2016 16:12 - CONCLUSION: 1. There is residual IV contrast within the kidneys and bladder. 2. There are no findings to indicate a bowel obstruction. 3. The patient is post hysterectomy. Hussain Sandoval MD Physical Exam GENERAL: This is a well-nourished, well-developed patient, in no apparent distress. SKIN: No rashes, ecchymoses or lesions. Cool and dry. HEAD: Atraumatic. Normocephalic. No temporal or scalp tenderness. EYES: Pupils equal round and reactive. Extraocular motions intact. No scleral icterus. No injection or drainage. ENT: Nose without bleeding, purulent drainage or septal hematoma. NECK: Intubated CARDIOVASCULAR: RRR RESPIRATORY: Clear to auscultation. Breath sounds equal bilaterally. GASTROINTESTINAL: Abdomen soft, nondistended. Midline old surgical scar intact, suprapubic tenderness noted. MUSCULOSKELETAL: Extremities without clubbing, cyanosis, or edema. No joint tenderness, effusion, or edema noted. No calf tenderness. Negative Homans sign bilaterally. NEUROLOGICAL: Opens eyes, wiggles bilateral toes. Left LE weakness noted 3+/5 in left foot, knee level. No pain or restriction in motion at hip level. Psych: cooperative IV line sites with no e.o infection. Assessment & Plan Remarks Sepsis present on admission (fever, tachycardia, WBC elevation, Encephalopathy) Surgical site infection at Lumbar Laminectomy (Surgery done at [facility]) Gram positive bacteremia likely source Surgical Site infection. Staph epidermidis bacteremia. 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 Acute metabolic encephalopathy: sepsis, ? acute meningitis secondary to spine surgical site infection, epidural abscess Acute renal failure: prerenal, acute urinary retention. Endometrial cancer with mets to multiple bones. PCN allergy clarified. Aspiration risk. Hypoalbuminemia Recs: Continue Ceftazidime IV (better neuro levels) Change Flagyl to oral pending final cultures. Continue Vanco IV (target 15-20: adjusted, d.w Pharmacist, follow urine output) d.w , RN, d/w and . thinks that it will be difficult to completely treat this infection chances of recurrence due to CSF leak that he was not able to fix. This leak was from recent laminectomy done at Outside hospital ([facility]). He will d.w family as well. Palliative care consult appropriate given these findings. Also bony mets are a concern. Jean-Baptiste for strict I/O documentation Follow Cr and UO. Palliative care consult pending. Critical thinking, decision making. Nichole Nina MD Nov 08, 2016 12:50
[2016-11-08 13:55] LABS: MAGNESIUM 1.6 MG/DL (1.5-2.5)
[2016-11-08] MEDS: METOPROLOL TARTRATE 5 MG/5 ML VIAL IV PUSH PRN (15:05)
[2016-11-08] MEDS: ACETAMINOPHEN 325 MG TAB PO PRN (16:01)
[2016-11-08] MEDS: HYDROmorphone HCL PF 1 MG/ML VIAL IV PUSH PRN ×2 (16:01→23:29)
--- NOTE | 2016-11-08 19:47 | HHI.NSPN ---
History Chief Complaint: intubated and sedated Interval History 86-year-old female with history of lumbar laminectomy approximately 2 weeks ago in [place]. Patient presents to the emergency room on 11/05/16 with decreasing mental status, GI symptoms, and subsequent opening of the wound with wound dehiscence and purulent drainage. 11/07/16: Patient to surgery on an urgent basis for evacuation of epidural abscess , wound debridement. Patient found to have pre-existing dural tear with CSF leakage which could not be primarily repaired. Indirect repair of dural tear with blood clot, Gelfoam, thrombin, tissue glue and reclosure of wound site. Exam Results Vital Signs Date Time Temp Pulse Resp B/P Pulse Ox O2 Delivery O2 Flow Rate FiO2 11/08/16 18:00 81 11/08/16 17:08 16 11/08/16 17:00 100.4 105/53 95 89/39 11/08/16 16:00 35 11/07/16 16:00 Mechanical Ventilator 11/06/16 20:00 2.00 Intake and Output 11/07/16 11/07/16 11/08/16 08:00 16:00 00:00 Intake Total 800 ml 2345 ml Output Total 750 ml 2350 ml Balance 50 ml -5 ml Physical Examination Patient is examined in the intensive care unit She is intubated and sedated. Not following commands Head of bed is flat Lumbar dressing is dry and intact Lab, Micro, Other Results Laboratory Tests Test 11/07/16 11/08/16 11/08/16 21:25 03:15 09:55 Potassium Level 2.8 MEQ/L 3.7 MEQ/L 3.4 MEQ/L Phosphorus Level 1.5 MG/DL 2.5 MG/DL 1.8 MG/DL Magnesium Level 1.7 MG/DL 1.6 MG/DL 1.6 MG/DL White Blood Count 10.5 TH/MM3 Red Blood Count 2.51 MIL/MM3 Hemoglobin 8.2 GM/DL Hematocrit 23.6 % Mean Corpuscular Volume 93.9 FL Mean Corpuscular Hemoglobin 32.6 PG Mean Corpuscular Hemoglobin 34.8 % Concent Red Cell Distribution Width 13.3 % Platelet Count 165 TH/MM3 Mean Platelet Volume 8.0 FL Sodium Level 143 MEQ/L Chloride Level 109 MEQ/L Carbon Dioxide Level 23.8 MEQ/L Anion Gap 10 MEQ/L Blood Urea Nitrogen 18 MG/DL Creatinine 0.35 MG/DL Estimat Glomerular Filtration 177 ML/MIN Rate Random Glucose 100 MG/DL Calcium Level 7.9 MG/DL Medical Decision Making Impression and Plan Impression: Status post debridement lumbar wound dehiscence, evacuation epidural abscess, indirect closure of CSF leak and dural tear. Incision remains dry Plan: Continue current management. Continue head of bed flat Continue intubation, sedation, ventilatory support Antibiotics per infectious disease Pratik Melissa MD Nov 08, 2016 19:47
[2016-11-08] MEDS: CLINIMIX E 4.25/5 1000 mL- </= 42 mls/hr IV SCH ×6 (20:00→21:38)
[2016-11-08] MEDS: FAT EMULSION 20% INJ 250 ML (@10 mls/hr) IV SCH ×2 (20:00→21:37)
[2016-11-09] VITALS (20 sets, daily range): BP systolic 118–164; BP diastolic 56–73; PULSE 75–89; RESP 15–16; TEMP 99.1–100; O2SAT 96–100
[2016-11-09] MEDS: CHLORHEXIDINE GLUCONATE 2 % 1 PACK (2 CLOTHS) TOP SCH (02:10)
[2016-11-09] MEDS: SODIUM CHLOR 0.9% 1000 ML INJ 1,000 ML IV SCH (02:10)
[2016-11-09] MEDS: RESP: ALBUTEROL 2.5 MG/IPRATROPIUM 0.5 MG NEB (SCH) INH ×4 (03:53→21:32)
[2016-11-09] MEDS: HYDROmorphone HCL PF 1 MG/ML VIAL IV PUSH PRN ×5 (03:56→20:37)
[2016-11-09] MEDS: FAMOTIDINE 20 MG/2 ML VIAL IV PUSH SCH ×2 (03:56→15:16)
[2016-11-09] MEDS: metroNIDAZOLE 500 MG INJ 100 ML IV SCH ×3 (03:57→20:19)
[2016-11-09 04:58] LABS: HEMATOCRIT 24.3 % (35.0-46.0); MEAN CELL VOLUME 94.5 FL (80.0-100.0); MEAN CORPUSCULAR HEMOGLOBIN 33.1 PG (27.0-34.0); PLATELET COUNT 175 TH/MM3 (150-450); RED BLOOD COUNT 2.57 MIL/MM3 (4.00-5.30); RED CELL DISTRIBUTION WIDTH 13.9 % (11.6-17.2); REVIEW FLAG FINAL
--- NOTE | 2016-11-09 05:04 | RADRPT ---
EXAM DATE/TIME: 11/09/2016 03:53 [facility] COMPARISON: CHEST SINGLE AP, November 08, 2016, 3:11. INDICATIONS : Respiratory distress. MEDICAL HISTORY : Metastatic, bone. Carcinoma, endometrial. SURGICAL HISTORY : Appendectomy. Hysterectomy. Tonsillectomy. Cervical fusion ENCOUNTER: Subsequent ACUITY: 4 - 6 days PAIN SCORE: Non-responsive. LOCATION: Bilateral chest FINDINGS: A single view of the chest demonstrates slight better aeration. Minimal bibasilar densities and upper lobe densities medially. A endotracheal tube, nasogastric tube and right sided Omicmi-s-[id number] are unc hanged. The cardiomediastinal contours are unremarkable. Osseous structures are intact. CONCLUSION: Better aeration with bilateral parenchymal densities. Jacinto Blanco MD on November 09, 2016 at 5:00 Board Certified Radiologist. This report was verified electronically.
[2016-11-09 05:23] LABS: MAGNESIUM 1.5 MG/DL (1.5-2.5); POTASSIUM 3.2 MEQ/L (3.5-5.1)
[2016-11-09] MEDS: INSULIN ASPART SUPPLEMENTAL SCALE SQ SCH ×3 (06:00→17:45)
[2016-11-09] MEDS: cefTAZidime INJ 2,000 MG in SODIUM CHLORIDE 0.9% INJ 100 ML IV SCH ×2 (06:00→14:00)
[2016-11-09] MEDS: PROPOFOL 1000 MG/100 ML INJ 100 ML IV SCH ×2 (06:28→17:46)
[2016-11-09] MEDS: CHLORHEXIDINE 0.12% (ORAL KIT) 15 ML CUP MT SCH ×2 (08:08→20:20)
[2016-11-09] MEDS: SODIUM CHLORIDE 0.9% FLUSH 10 ML FLUSH IV FLUSH PRN (08:08)
[2016-11-09] MEDS: SODIUM CHLORIDE 0.9% FLUSH 10 ML FLUSH IV FLUSH SCH ×2 (08:08→20:21)
[2016-11-09] MEDS: POTASSIUM PHOSPHATE INJ 30 MMOL in SODIUM CHLOR 0.9% 250 ML INJ 250 ML IV PRN (08:08)
[2016-11-09] MEDS ORDERED: PHARMACY ORDERED LAB ONE (08:45)
[2016-11-09] MEDS: VANCOMYCIN INJ 1,250 MG in SODIUM CHLOR 0.9% 250 ML INJ 250 ML IV SCH (09:13)
[2016-11-09] MEDS ORDERED: SODIUM CHLOR 0.45% 1000 ML INJ 1,000 ML IV SCH (09:53)
--- NOTE | 2016-11-09 10:59 | HHI.CCPN ---
Subjective Remarks/Hospital Course This 86 year-old woman who presents to the emergency department complaining of nausea vomiting, low back pain, and chills on 11/05/2016. She has a history of metastatic endometrial cancer diagnosed 5 years ago initially, as well as chronic back pain. The chronic back pain preceded the malignancy. Most recent PET scan as reported by daughter revealed multiple bony metastasis to include skull, and right upper arm. She underwent an L[facility]L5 [facility] ago [facility] . Prior to her surgery , the patient was extremely physically active without any ambulation difficulties.She was doing well initially but over the past several days complained of increased nausea vomiting, increased low back pain, and chills. Upon admission incision has not had any drainage or bleeding,and she denied any urinary symptoms. The patient was admitted to [facility] on 11/05/2016, she subsequently has begun to have leukocytosis, urinary retention and noted drainage from lumbar laminectomy surgical site. Lumbar CT scan revealed postop laminectomy L4 with fluid and scattered bubbles possibly resolving hematoma, abscess could not be excluded. ID and Neurosurgery was consulted.Critical care medicine is consult that for patients noted sepsis, and progressive weakness bilateral lower extremities. Subjective: 11/07 Seen upon return from the OR following lumbar wound debridement and evacuation of epidural abscess by Dr. Melissa. Patient is to remain intubated per Dr. Melissa as she must be maintained with HOB flat due to dural leak (but rotate side to side q2 hours). At present she is not on continuous sedation, but is unresponsive to deep noxious stimuli upon return from general anesthesia. Reportedly large amount of respiratory secretions noted upon intubation by anesthesia. Routine airway per documentation. She received 1800 crystalloid intraoperatively. EBL 20 ml. 11/08: Afebrile. Patient remains on propofol infusion, moving bilateral upper and lower extremities wiggling toes and moving upper extremities. The patient was inadvertently placed on fentanyl infusion last night for purported pain. Fentanyl infusion discontinued, patient on when necessary pain medicine now currently following commands and denies pain. Leukocytosis resolved, the patient continues on Flagyl, Vancomycin and Ceptazidime per ID Dr. Nina. The patient remains flat in bed, supine position in order to begin nutrition PPN was initiated this a.m.. Extensive discussion with Dr. Melissa and Dr. Nina and palliative care consulted with planned discussion with family today. 11/09: Leukocytosis resolved. Wound culture was noted staph aureus. Patient was noted to have hypophosphatemia and hypomagnesemia ischemia which are being currently replaced. PPN was initiated for nutritional support secondary to put required positioning. Palliative care was consulted to discuss goals of care, currently aggressive treatment management continued per family request. Objective Vital Signs Date Time Temp Pulse Resp B/P Pulse Ox O2 Delivery O2 Flow Rate FiO2 11/09/16 10:00 81 11/09/16 09:51 15 11/09/16 08:00 35 11/09/16 08:00 99.8 151/71 100 152/57 11/07/16 16:00 Mechanical Ventilator 11/06/16 20:00 2.00 Intake and Output 11/08/16 11/08/16 11/09/16 08:00 16:00 00:00 Intake Total 1279 ml 1312 ml 1072 ml Output Total 300 ml 550 ml 400 ml Balance 979 ml 762 ml 672 ml Result Diagram: 11/09/16 0325 11/09/16 0325 Other Results Microbiology Date/Time Procedure Status Source Growth 11/07/16 01:47 Gram Stain - Final Complete Abscess Back 11/07/16 01:47 Wound Culture - Final Complete Staphylococcus Aureus Imaging Last Impressions Chest X-Ray 11/05/16 0150 Signed Impressions: Service Date/Time: Saturday, November 05, 2016 01:56 - CONCLUSION: No acute cardiopulmonary disease. Deangelo Monsivais MD Lumbar Spine CT 11/05/16 0000 Signed Impressions: Service Date/Time: Saturday, November 05, 2016 04:14 - CONCLUSION: 1. Postop laminectomy at L4 level with fluid within the operative bed and a few scattered gas bubbles may be postsurgical change and possibly resolving hematoma, however abscess is not excluded. No definite signs of osteomyelitis. 2. Neural foramina compromise left L2-L3, bilateral L4-L5. 3. Bilateral masses compromise L5-S1. 4. Residual slight thecal sac stenosis may be present at L3-4 and L4-5. Deangelo Monsivais MD Head CT 11/05/16 0000 Signed Impressions: Service Date/Time: Saturday, November 05, 2016 16:08 - CONCLUSION: 1. No acute intracranial abnormality. Hussain Sandoval MD Abdomen/Pelvis CT 11/05/16 0000 Signed Impressions: Service Date/Time: Saturday, November 05, 2016 16:12 - CONCLUSION: 1. There is residual IV contrast within the kidneys and bladder. 2. There are no findings to indicate a bowel obstruction. 3. The patient is post hysterectomy. Hussain Sandoval MD Objective Remarks Drips: PPN 42cc/hr GENERAL: Critically ill-appearing elderly female who is orotracheally intubated. SKIN: Warm and dry. HEAD: Atraumatic. Normocephalic. EYES: Pupils 2 mm bilaterally and sluggishly reactive. No scleral icterus. No injection or drainage. ENT: No nasal bleeding or discharge. NECK: Trachea midline. No JVD. CARDIOVASCULAR: Normal rate, regular rhythm. 2/6 systolic murmur left sternal border RESPIRATORY: No accessory muscle use. ET tube in place. Occasional coarse rhonchi. On mechanical ventilation ACV tidal volume 450/rate 15/PEEP 5/FiO2 35% GASTROINTESTINAL: Healed abdominal incision noted. Bowel sounds hypoactive. No tenderness appreciable : Jean-Baptiste in place with light yellow urine output. MUSCULOSKELETAL: Extremities without clubbing, cyanosis, or edema. No obvious deformities. NEUROLOGICAL: RASS 0. Opens eyes, follows commands with squeeze bilateral hands. Does move bilateral feet including plantar flexion with minimal extension. Urinary Catheter: Yes Jean-Baptiste insert reason: Measure Accurate Output Vascular Central Line Catheter: No A/P Assessment and Plan Plan by systems: Neurologic: Metabolic encephalopathy secondary to sepsis Lumbar epidural abscess Status post lumbar wound debridement and drainage epidural abscess 11/07/16 (Dr. Melissa) GCS 11T-response Neurochecks every 2 hour per ICU protocol 11/05 CT lumbar spine-postop laminectomy L4 with fluid and scattered bubbles possibly resolving hematoma. Abscess cannot be excluded. Neural foraminotomy not compromise left L2-3, L4-L5, residual thecal sac stenosis may be present L3 L4, L4-L5,B/L mass compromise L5-S1. MRI -post surgical changes with hematoma/seroma ? Abscess L3/L4 and L4/L5. 11/07-postop CSF leak, spinal epidural abscess, postoperative wound dehiscence, pre-existing dural tear with repair, status post debridement lumbar wound dehiscence, evacuation of lumbar abscess indirect repair of pre-existing dural tear Reportedly persistent dural leak noted intraoperatively. Patient is to remain head of bed down/supine per Dr. Melissa. 11/06-Ammonia level 10. EEG 11/06/16moderately slow background consistent with encephalopathy. No epileptiform features. Neurology following, Dr. Berto CALDERÓN following, Dr. Melissa Respiratory: Acute respiratory failure Duo nebs every 6 hours scheduled ACV tidal line 450/rate 15/P5/FiO2 40%. Follow-up ABG as appropriate. Will wean FiO2. Ventilator bundle Maintain head of bed flat per neurosurgery recommendations Cardiovascular: Maintain MAP > 65 mmHg Currently normotensive without vasopressor support FEN/RENAL Acute kidney injury Neurogenic bladder with urinary retention. Hypomagnesemia Hypophosphatemia Urinary retention noted upon Jean-Baptiste insertion. Jean-Baptiste to remain in place for accurate intake and output assessment. Monitor electrolytes and replace as indicated. Received 1800 crystalloid intraoperatively. Discontinue 0.9 NaCl IV fluid 42cc/hr Electrolyte replacement per ICU protocol Patient placed on scheduled doses of phosphorus GI: Moderate protein energy malnutrition PPN Patient position supine, unable to begin tube feeds. PPN initiated with lipid supplementation 11/[address] Hale, no GI issues identified. ID: Severe sepsis-resolved Leukocytosis-resolved Antibiotics per infectious disease, Dr. Anayeli Nina currently on Flagyl vancomycin and Ceptaz attending HEME: Metastatic Endometrial cancer s/p recent chemotherapy 10/06 Chronic anemia Monitor CBC Endocrine: Low-dose insulin sliding scale at bedside glucose every 6 hours. GI Prophylaxis Pepcid twice a day DVT Prophylaxis -- SCDs. Hold pharmacologic DVT prophylaxis until approved by neurosurgery. ACCESS: Port accessed right chest. Left radial art line placed in OR 11/07 day # 3 This patient remains critically ill with one or more organ systems which are or may become a threat to life. 35 minutes exclusive of separately billable procedures. The patient remains HOB flat.Palliative care has been consulted the cases been discussed with Dr. Melissa and Dr. Nina prognosis is guarded at this time . Physician Juanita Hutchison MD Nov 09, 2016 10:59
[2016-11-09] MEDS ORDERED: POTASSIUM PHOSPHATE MONOBASIC 500 MG TAB PO SCH (11:00)
--- NOTE | 2016-11-09 12:38 | HHI.PR ---
Subjective Remarks On ventilator sedated with diprivan. Moving toes. Objective Vital Signs Date Time Temp Pulse Resp B/P Pulse Ox O2 Delivery O2 Flow Rate FiO2 11/09/16 11:16 100 35 11/09/16 10:00 81 11/09/16 09:51 15 11/09/16 08:00 35 11/09/16 08:00 99.8 75 15 151/71 100 152/57 11/09/16 08:00 75 11/09/16 07:45 100 35 11/09/16 06:00 82 11/09/16 04:05 99 35 11/09/16 04:00 87 11/09/16 04:00 99.5 87 16 150/70 96 164/62 11/09/16 04:00 35 11/09/16 02:00 84 11/09/16 01:05 100 35 11/09/16 00:00 99.3 81 16 136/66 100 153/59 11/09/16 00:00 35 11/09/16 00:00 81 11/08/16 22:00 81 11/08/16 21:54 100 35 11/08/16 20:00 78 11/08/16 20:00 98.6 78 15 153/75 100 156/69 11/08/16 20:00 35 11/08/16 19:30 100 35 11/08/16 18:00 81 11/08/16 17:00 100.4 75 16 105/53 95 89/39 11/08/16 16:00 87 11/08/16 16:00 35 11/08/16 15:48 100 35 11/08/16 14:00 91 I/O 11/08/16 11/08/16 11/08/16 11/09/16 11/09/16 11/09/16 07:00 15:00 23:00 07:00 15:00 23:00 Intake Total 1279 ml 1312 ml 1072 ml 820 ml Output Total 300 ml 550 ml 400 ml 700 ml Balance 979 ml 762 ml 672 ml 120 ml Intake IV Total 1279 ml 1312 ml 673 ml 449 ml TPN/PPN 325 ml 300 ml Lipid 74 ml 71 ml Output Urine Total 300 ml 550 ml 400 ml 700 ml # Bowel Movements 0 0 0 0 Result Diagram: 11/09/1632411/09/16324 Procedures evacuation of epidural abscess 11/07 had laminectomy 2 weeks ago Objective Remarks GENERAL: Sedated on ventilator SKIN: Warm and dry. Lumbar dressing on back HEAD: Normocephalic. EYES: No scleral icterus. No injection or drainage. NECK: Supple, trachea midline. No JVD or lymphadenopathy. CARDIOVASCULAR: Regular rate and rhythm without murmurs, gallops, or rubs. RESPIRATORY: Breath sounds equal bilaterally. No accessory muscle use. Intubated GASTROINTESTINAL: Abdomen soft, non-tender, nondistended. MUSCULOSKELETAL: No cyanosis. Generalized edema Medications and IVs Current Medications Medications (Trade) Dose Ordered Sig/Aleja Route Start Time Stop Time Status Last Admin (Vancomycin Consult Pharmacy) ml @ 0 mls/hr UNSCH OTHER 11/05/16 16:45 Acetaminophen 650 mg 650 mg Q4H PRN RECTAL 11/05/16 18:30 11/05/16 18:30 Ceftazidime 2000 mg/Sodium Chloride 100 ml @ 200 mls/hr Q8H IV 11/06/16 14:00 11/09/16 06:00 (Flagyl 500 Mg Inj) 100 ml @ 100 mls/hr Q8H IV 11/06/16 13:00 11/09/16 03:57 (NS Flush) 2 ml UNSCH PRN IV FLUSH 11/06/16 12:30 11/09/16 08:08 (NS Flush) 2 ml BID IV FLUSH 11/06/16 21:00 11/09/16 08:08 (Tylenol) 650 mg Q6H PRN PO 11/06/16 12:30 11/08/16 16:01 (Zofran Inj) 4 mg Q6H PRN IV 11/06/16 12:30 (Dulcolax Supp) 10 mg DAILY PRN RECTAL 11/06/16 12:30 Miscellaneous Information 1 Q361D XX 11/06/16 12:30 (Chlorhexidine 2% Cloth) 3 pack Taper DAILY@04 TOP 11/07/16 04:00 11/03/17 03:59 11/09/16 02:10 (Chlorhexidine 2% Cloth) 3 pack UNSCH PRN TOP 11/06/16 12:30 (D50w (Vial) Inj) 25 ml UNSCH PRN IV PUSH 11/06/16 14:15 Glucagon 1 mg 1 mg UNSCH PRN OTHER 11/06/16 14:15 (Diprivan 1000 Mg/100ml Inj) 100 ml @ 0 mls/hr TITRATE IV 11/07/16 03:45 11/09/16 06:28 (Peridex 0.12% Liq) 15 ml BID@08,20 MT 11/07/16 08:00 11/09/16 08:08 (D50w (Vial) Inj) 25 ml UNSCH PRN IV PUSH 11/07/16 04:15 (Glucagon Inj) 1 mg UNSCH PRN OTHER 11/07/16 04:15 Insulin Aspart 1 1 Q6H SQ 11/07/16 06:00 Potassium Chloride 100 ml @ 50 mls/hr Q2H PRN IV-CENTRAL 11/07/16 08:45 11/07/16 23:30 Potassium Chloride 100 ml @ 50 mls/hr Q2H PRN IV 11/07/16 08:45 Potassium Chloride 100 ml @ 25 mls/hr UNSCH PRN IV-CENTRAL 11/07/16 08:45 Potassium Chloride 100 ml @ 50 mls/hr Q2H PRN IV 11/07/16 08:45 (Magnesium Sulfate Inj/NS Inj) 100 ml @ 50 mls/hr UNSCH PRN IV 11/07/16 08:45 Magnesium Oxide 800 mg 800 mg UNSCH PRN PO 11/07/16 08:45 (Magnesium Sulfate Inj/NS Inj) 100 ml @ 50 mls/hr UNSCH PRN IV 11/07/16 08:45 11/07/16 10:25 Potassium Phosphate 2000 mg 2,000 mg Q4H PRN PO 11/07/16 08:45 (Sodium Phosphate Inj/NS 250 ml Inj) 250 ml @ 42 mls/hr UNSCH PRN IV 11/07/16 08:45 Potassium Phosphate 2000 mg 2,000 mg UNSCH PRN PO/TUBE 11/07/16 08:45 (Potassium Phosphate Inj/NS 250 ml Inj) 260 ml @ 42 mls/hr UNSCH PRN IV 11/07/16 08:45 11/09/16 08:08 (Pepcid Inj) 20 mg Q12H IV PUSH 11/07/16 16:00 11/09/16 03:56 Metoprolol Tartrate 2.5 mg 2.5 mg Q6H PRN IV PUSH 11/08/16 14:45 11/08/16 15:05 Multivitamins 10 ml/Folic Acid 1 mg/Amino Acids/ Electrolytes/ Dextrose 1,010.2 ml @ 42 mls/hr Q24H IV 11/08/16 20:00 11/08/16 21:38 (Liposyn Iii 20% Inj) 250 ml @ 10 mls/hr Q24H IV 11/08/16 20:00 11/08/16 21:37 Hydromorphone HCl 1 mg 1 mg Q2HR PRN IV PUSH 11/08/16 15:45 11/09/16 09:12 Sodium Chloride 1,000 ml @ 0 mls/hr Q0M IV 11/09/16 09:53 (Vancomycin Inj/ NS 250 ml Inj) 262.5 ml @ 250 mls/hr Q18H IV 11/10/16 03:00 Miscellaneous Information SPECIFIC LAB TO BE DRAWN:VANCOMYCIN TROUGH DATE TO... ONCE ONCE .XX 11/11/16 14:45 11/11/16 14:46 (K-Phos) 500 mg DAILY PO 11/10/16 09:00 Assessment and Plan Problem List: (1) Spinal epidural abscess Status: Acute Plan: Patient to surgery on an urgent basis on the for evacuation of epidural abscess, wound debridement. Patient found to have pre-existing dural tear with CSF leakage which could not be primarily repaired. Indirect repair of dural tear with blood clot, Gelfoam, thrombin, tissue glue and reclosure of wound site. Dressing on site. Patient lying flat Palliative care consult ordered continue with aggressive care per family request. (2) Sepsis Status: Acute Plan: ID consulted and managing. Positive blood cultures for staph aureus. On antibiotics. WBC improved at 8.5 (3) Respiratory failure Status: Acute Plan: Biology Intern managing. On ventilator with Diprivan for sedation (4) Anemia Status: Acute Plan: HGB 8.5. Will monitor (5) Abnormal blood electrolyte level Status: Acute Plan: Potassium and magnesium low on replacement. Assessment and Plan Assessment and plan discussed with Dr. Kendrick. Palliative care consulted. Dayanara Barbour Nov 09, 2016 12:38
--- NOTE | 2016-11-09 16:56 | PD.RAD ---
Post Procedure Progress Note Pre Procedure Diagnosis: (1) Dural tear (2) Postoperative CSF leak (3) Spinal epidural abscess Post Procedure Diagnosis: (1) Dural tear (2) Postoperative CSF leak (3) Spinal epidural abscess Procedure Date: Nov 09, 2016 Supervising Radiologist: Naveed Rosenthal Proceduralist/Assist: RT Lucila(R) Anesthesia: Local, Conscious Sedation Plan of Activity Patient to Unit: Critical Care Patient Condition: Critical See PACS Report for procedural detail/treatment Spinal Procedure Lumbar Drain L1-L2 Fluid Removal (CCs): 8 Fluid Description: Cloudy, Bloody Naveed Rosenthal MD Nov 09, 2016 16:56
--- NOTE | 2016-11-09 17:32 | RADRPT ---
EXAM DATE/TIME: 11/09/2016 16:21 [place] COMPARISON: No previous studies available for comparison. INDICATIONS : Patient presents with cerebral spinal fluid leak in need of lumbar drain with fluid collection. MEDICAL HISTORY : Endometrial CA Chronic back pain SURGIAL HISTORY : Laminectomy L4-L5 2 weeks ago ENCOUNTER: Initial ACUITY: 1 day PAIN SCORE: 0/10 LOCATION: Right buttock LUMBAR PUNCTURE TIME: 16:32 hours FLUORO TIME: 3.0 minutes IMAGE SERIES: 0 LEVEL: Tip of lumbar drain was placed at T8 FLUID: 7 cc of clear, yellow CSF was collected and sent to the laboratory for analysis. DEVICE(S): 1.) 5 Nepali lumbar drain catheter TECH NOTE: Lumbar puncture level at L1-U3SZERDGMEGHNA GHOSH MR#:[id number] Exam Dt/Desc: November 09 7LUMBAR DRAINAGE PROCEDURE : 1. Fluoroscopically guided lumbar drain placement. 2. Conscious sedation with continuous EKG and oximetry monitoring. The risks, benefits and alternatives to the procedure were explained and verbal and written consent w as obtained. The site was prepped in sterile fashion. Full sterile technique was used, including ca p, mask, sterile gloves and gown and a large sterile sheet. Hand hygiene and 2% chlorhexidine and/or betadine/alcohol prep was utilized per protocol for cutaneous antisepsis. The skin and subcutaneous tissues were infiltrated with local anesthetic solution. With fluoroscopic guidance the lumbar thecal sac was punctured with a 14 gauge Touhy needle and a lum bar drain was placed with its tip at the level as described above and the catheter was sutured in chepe ce. CSF was identified returning from the catheter at the termination of the procedure. Conscious sedation was performed with the prescribed dosages and duration as above in the presence of an independent trained radiology nurse to assist in the monitoring of the patient. EKG and oximetry remained stable throughout the procedure. The patient tolerated the procedure well and there were n o complications. The patient was sent to post anesthesia recovery in stable condition. CONCLUSION: Uncomplicated lumbar drain placement as above. Naveed Rosenthal MD on November 09, 2016 at 17:30 Board Certified Radiologist. This report was verified electronically.
[2016-11-09] MEDS: METOPROLOL TARTRATE 5 MG/5 ML VIAL IV PUSH PRN ×2 (17:46→22:29)
--- NOTE | 2016-11-09 17:49 | HHI.NSPN ---
History Chief Complaint: intubated and sedated Interval History 86-year-old female with history of lumbar laminectomy approximately 2 weeks ago in [place]. Patient presents to the emergency room on 11/05/16 with decreasing mental status, GI symptoms, and subsequent opening of the wound with wound dehiscence and purulent drainage. 11/07/16: Patient to surgery on an urgent basis for evacuation of epidural abscess , wound debridement. Patient found to have pre-existing dural tear with CSF leakage which could not be primarily repaired. Indirect repair of dural tear with blood clot, Gelfoam, thrombin, tissue glue and reclosure of wound site. 11/08/16: Patient remains intubated, sedated, head of bed flat. Dressing dry and intact 11/09/16: Patient remains intubated. Slight amount of drainage noted from incision. Lumbar subarachnoid drain placed per interventional radiology Exam Results Vital Signs Date Time Temp Pulse Resp B/P Pulse Ox O2 Delivery O2 Flow Rate FiO2 11/09/16 15:50 15 11/09/16 15:15 100 100 11/09/16 14:00 81 11/09/16 12:00 99.1 152/70 159/66 11/07/16 16:00 Mechanical Ventilator 11/06/16 20:00 2.00 Intake and Output 11/08/16 11/08/16 11/09/16 08:00 16:00 00:00 Intake Total 1279 ml 1312 ml 1072 ml Output Total 300 ml 550 ml 400 ml Balance 979 ml 762 ml 672 ml Physical Examination Patient is examined in the intensive care unit She is intubated and sedated. Moves all extremities to command Head of bed is flat Lumbar dressing has minimal drainage. When patient is turned and dressing removed, slight amount of drainage noted from the incision. Lab, Micro, Other Results Laboratory Tests Test 11/09/16 11/09/16 11/09/16 03:25 09:00 16:32 White Blood Count 8.0 TH/MM3 Red Blood Count 2.57 MIL/MM3 Hemoglobin 8.5 GM/DL Hematocrit 24.3 % Mean Corpuscular Volume 94.5 FL Mean Corpuscular Hemoglobin 33.1 PG Mean Corpuscular Hemoglobin 35.0 % Concent Red Cell Distribution Width 13.9 % Platelet Count 175 TH/MM3 Mean Platelet Volume 8.4 FL Sodium Level 141 MEQ/L Potassium Level 3.2 MEQ/L Chloride Level 107 MEQ/L Carbon Dioxide Level 25.0 MEQ/L Anion Gap 9 MEQ/L Blood Urea Nitrogen 17 MG/DL Creatinine 0.23 MG/DL Estimat Glomerular Filtration 287 ML/MIN Rate Random Glucose 126 MG/DL Calcium Level 8.3 MG/DL Phosphorus Level 1.4 MG/DL Magnesium Level 1.5 MG/DL Vancomycin Level Trough 6.2 MCG/ML CSF Glucose 46 MG/DL CSF Total Protein 147.5 MG/DL Medical Decision Making Impression and Plan Impression: Status post debridement lumbar wound dehiscence, evacuation epidural abscess, indirect closure of CSF leak and dural tear. Slight amount of drainage noted from the incision today. Plan: Discussed with the patient's family in the room today. Discussed with nursing staff Discussed with interventional radiology Lumbar subarachnoid drain placed. Possible increased risk of meningitis with drain placement discussed with family. Continue head of bed flat Continue intubation, sedation, ventilatory support Antibiotics per infectious disease Advised family that if recurrent in infection and abscess occurs or if the CSF fistula and incision fails to heal with lumbar subarachnoid drain placement, that further surgery may be necessary. Pratik Melissa MD Nov 09, 2016 17:49
[2016-11-09 17:54] LABS: GROSS BLOOD TUBE #1 2+ (0); SUPERNATE COLOR TUBE #1 XANTHOCHROMIC (CLEAR)
[2016-11-09 17:55] LABS: GROSS BLOOD TUBE #2 2+ (0); GROSS BLOOD TUBE #3 2+ (0); GROSS BLOOD TUBE #4 2+ (0); SUPERNATE COLOR TUBE #2 XANTHOCHROMIC (CLEAR); SUPERNATE COLOR TUBE #3 XANTHOCHROMIC (CLEAR); SUPERNATE COLOR TUBE #4 XANTHOCHROMIC (CLEAR); VOLUME TUBE # 2 1.5 ML; VOLUME TUBE # 3 1.3 ML
[2016-11-09 18:44] LABS: CSF LYMPHOCYTES 6 %; CSF MONOCYTES 10 %; CSF NEUTROPHILS 82 %; WBC TUBE #4 344 /MM3 (0-10)
--- NOTE | 2016-11-09 18:57 | HHI.HCPN ---
Reason for visit a. To assist with evaluation and management of symptoms including: pain, weakness. b. To assist medical decision maker(s) with: better understanding of current medical conditions; weighing benefits/burdens of medical treatment options; making medical treatment decisions. . (CAMRYN ZEE) Subjective/Interval History 2pm: Patient seen and examined in ICU. Spouse, daughter, granddaughter and friend at bedside. Discussed with Dr. Melissa, Dr. Marin and Dr. Guthrie. Dr. Melissa at bedside during a portion of my meeting, he plans for lumbar subarachnoid drain placement with IR (will obtain cultures) as pt had small amount of drainage form incision today. He explains the purpose is to drain fluid in hopes dura will heal. Dr. Guthrie does not plan to extubate until patient can sit up. Family understands pt is high risk of aspiration, blood clot, other complications. Family elects FULL CODE for now, understanding we may ask again depending on clinical course. Family asked about Vitamin C infusion, Dr. Guthrie declined as there are not good clinical studies to support Vitamin C infusions at this time, family accepts. Tmax 99.6. Vital signs stable. WBC 8.0., hemoglobin 8.5. Phosphorus low 1.4. Chest xray better aeration with bilateral parenchymal densities. . Family/friend interactions See interval note. (CAMRYN ZEE) Advance Directives Living Will: Never completed Health Care Surrogate: Never completed Durable Power of Ride Assembly Supervisor: Never completed (CAMRYN ZEE) Advance Directive Specifics Health Care Surrogate(s): Patient is currently incapacitated to make her own health care decisions. According to [place] statutes health care proxy decision-making falls to the patient's spouse. He is supported by their daughterAnna. . Significant change in goals: FULL CODE. Continue aggressive care. . (CAMRYN ZEE) Objective Vital Signs Date Time Temp Pulse Resp B/P Pulse Ox O2 Delivery O2 Flow Rate FiO2 11/09/16 18:36 15 11/09/16 18:10 100.0 76 15 118/56 99 136/56 11/09/16 18:00 35 11/09/16 18:00 76 11/09/16 17:43 100 35 11/09/16 16:00 89 16 143/73 100 11/09/16 15:15 100 100 11/09/16 14:00 81 11/09/16 12:00 99.1 86 16 152/70 100 159/66 11/09/16 12:00 86 11/09/16 12:00 35 11/09/16 11:16 100 35 11/09/16 10:00 81 11/09/16 08:00 35 11/09/16 08:00 99.8 75 15 151/71 100 152/57 11/09/16 08:00 75 11/09/16 07:45 100 35 11/09/16 06:00 82 11/09/16 04:05 99 35 11/09/16 04:00 87 11/09/16 04:00 99.5 87 16 150/70 96 164/62 11/09/16 04:00 35 11/09/16 02:00 84 11/09/16 01:05 100 35 11/09/16 00:00 99.3 81 16 136/66 100 153/59 11/09/16 00:00 35 11/09/16 00:00 81 11/08/16 22:00 81 11/08/16 21:54 100 35 11/08/16 20:00 78 11/08/16 20:00 98.6 78 15 153/75 100 156/69 11/08/16 20:00 35 11/08/16 19:30 100 35 Intake & Output 11/09/16 11/09/16 07:00 19:00 Intake Total 1892 ml 603 ml Output Total 1100 ml 850 ml Balance 792 ml -247 ml Intake IV Total 1122 ml 603 ml TPN/PPN 625 ml Lipid 145 ml Output Urine Total 1100 ml 850 ml # Bowel Movements 0 0 Physical Exam CONSTITUTIONAL/GENERAL: This is critically ill patient, sedated on mechanical ventilation. TUBES/LINES/DRAINS: ETT, OG, right chest port, PIV, Jean-Baptiste, bilateral soft wrist restraints, SCD's. SKIN: No jaundice, rashes, or lesions. Ecchymoses on upper extremities. No wounds seen anteriorly. Skin temperature appropriate. Not diaphoretic. EYES: eyes closed. ENT: Hearing appears grossly normal, patient opens eyes to voice. Nose without bleeding or purulent drainage. Throat difficult to visualize secondary tubes. CARDIOVASCULAR: Regular rate and rhythm. Systolic murmur noted left sternal border. RESPIRATORY/CHEST: Symmetric, unlabored respirations on mechanical event. Occasional course breath sounds. GASTROINTESTINAL: Abdomen soft, non-tender, nondistended. No guarding. Bowel sounds hypoactive. GENITOURINARY: Without palpable bladder distension. Jean-Baptiste catheter in place. MUSCULOSKELETAL: Extremities without clubbing, cyanosis, or edema. No mottling or clubbing. NEUROLOGICAL: Awakens easily, squeezes hands bilaterally. Wiggles toes without difficulty. PSYCHIATRIC: sedated. Opens eyes. Calm. . (CAMRYN ZEE) Diagnostic Tests Laboratory Laboratory Tests Test 11/07/16 11/07/16 11/07/16 11/08/16 03:35 03:42 21:25 03:15 White Blood Count 19.2 TH/MM3 10.5 TH/MM3 (4.0-11.0) (4.0-11.0) Red Blood Count 2.73 MIL/MM3 2.51 MIL/MM3 (4.00-5.30) (4.00-5.30) Hemoglobin 8.9 GM/DL 8.2 GM/DL (11.6-15.3) (11.6-15.3) Hematocrit 26.0 % 23.6 % (35.0-46.0) (35.0-46.0) Mean Corpuscular Volume 95.1 FL 93.9 FL (80.0-100.0) (80.0-100.0) Mean Corpuscular Hemoglobin 32.7 PG 32.6 PG (27.0-34.0) (27.0-34.0) Mean Corpuscular Hemoglobin 34.4 % 34.8 % Concent (32.0-36.0) (32.0-36.0) Red Cell Distribution Width 13.5 % 13.3 % (11.6-17.2) (11.6-17.2) Platelet Count 201 TH/MM3 165 TH/MM3 (150-450) (150-450) Mean Platelet Volume 8.4 FL 8.0 FL (7.0-11.0) (7.0-11.0) Neutrophils (%) (Auto) 93.6 % (16.0-70.0) Lymphocytes (%) (Auto) 1.0 % (9.0-44.0) Monocytes (%) (Auto) 5.1 % (0.0-8.0) Eosinophils (%) (Auto) 0.0 % (0.0-4.0) Basophils (%) (Auto) 0.3 % (0.0-2.0) Neutrophils # (Auto) 17.9 TH/MM3 (1.8-7.7) Lymphocytes # (Auto) 0.2 TH/MM3 (1.0-4.8) Monocytes # (Auto) 1.0 TH/MM3 (0-0.9) Eosinophils # (Auto) 0.0 TH/MM3 (0-0.4) Basophils # (Auto) 0.1 TH/MM3 (0-0.2) CBC Comment DIFF FINAL Differential Comment Sodium Level 140 MEQ/L 143 MEQ/L (136-145) (136-145) Potassium Level 3.2 MEQ/L 2.8 MEQ/L 3.7 MEQ/L (3.5-5.1) (3.5-5.1) (3.5-5.1) Chloride Level 107 MEQ/L 109 MEQ/L (98-107) (98-107) Carbon Dioxide Level 22.3 MEQ/L 23.8 MEQ/L (21.0-32.0) (21.0-32.0) Anion Gap 11 MEQ/L (5-15) 10 MEQ/L (5-15) Blood Urea Nitrogen 20 MG/DL (7-18) 18 MG/DL (7-18) Creatinine 0.53 MG/DL 0.35 MG/DL (0.50-1.00) (0.50-1.00) Estimat Glomerular Filtration 110 ML/MIN 177 ML/MIN Rate (>89) (>89) Random Glucose 135 MG/DL 100 MG/DL (74-106) (74-106) Calcium Level 8.0 MG/DL 7.9 MG/DL (8.5-10.1) (8.5-10.1) Phosphorus Level 2.0 MG/DL 1.5 MG/DL 2.5 MG/DL (2.5-4.9) (2.5-4.9) (2.5-4.9) Magnesium Level 1.4 MG/DL 1.7 MG/DL 1.6 MG/DL (1.5-2.5) (1.5-2.5) (1.5-2.5) Random Vancomycin Level 7.6 COMMENT Blood Gas Puncture Site FREDI Blood Gas Patient Temperature 98.6 Blood Gas HCO3 19 mmol/L (22-26) Blood Gas Base Excess -4.7 mmol/L (-2-2) Blood Gas Oxygen Saturation 97 % (90-100) Arterial Blood pH 7.40 (7.380-7.420) Arterial Blood Partial 31 mmHg (38-42) Pressure CO2 Arterial Blood Partial 191 mmHg Pressure O2 (61-120) Arterial Blood Oxygen Content 12.5 Vol % (12.0-20.0) Arterial Blood 1.9 % (0-4) Carboxyhemoglobin Arterial Blood Methemoglobin 1.1 % (0-2) Blood Gas Hemoglobin 8.9 G/DL (12.0-16.0) Oxygen Delivery Device VENTILATOR Blood Gas Ventilator Setting AC15/450/+5 Blood Gas Inspired Oxygen 50 % Test 11/08/16 11/09/16 11/09/16 11/09/16 09:55 03:25 09:00 16:32 Potassium Level 3.4 MEQ/L 3.2 MEQ/L (3.5-5.1) (3.5-5.1) Phosphorus Level 1.8 MG/DL 1.4 MG/DL (2.5-4.9) (2.5-4.9) Magnesium Level 1.6 MG/DL 1.5 MG/DL (1.5-2.5) (1.5-2.5) White Blood Count 8.0 TH/MM3 (4.0-11.0) Red Blood Count 2.57 MIL/MM3 (4.00-5.30) Hemoglobin 8.5 GM/DL (11.6-15.3) Hematocrit 24.3 % (35.0-46.0) Mean Corpuscular Volume 94.5 FL (80.0-100.0) Mean Corpuscular Hemoglobin 33.1 PG (27.0-34.0) Mean Corpuscular Hemoglobin 35.0 % Concent (32.0-36.0) Red Cell Distribution Width 13.9 % (11.6-17.2) Platelet Count 175 TH/MM3 (150-450) Mean Platelet Volume 8.4 FL (7.0-11.0) Sodium Level 141 MEQ/L (136-145) Chloride Level 107 MEQ/L (98-107) Carbon Dioxide Level 25.0 MEQ/L (21.0-32.0) Anion Gap 9 MEQ/L (5-15) Blood Urea Nitrogen 17 MG/DL (7-18) Creatinine 0.23 MG/DL (0.50-1.00) Estimat Glomerular Filtration 287 ML/MIN Rate (>89) Random Glucose 126 MG/DL (74-106) Calcium Level 8.3 MG/DL (8.5-10.1) Vancomycin Level Trough 6.2 MCG/ML (5.0-10.0) CSF Volume (Tube 1) 2.0 ML CSF Supernatant Color (tube 1) XANTHOCHROMIC (CLEAR) CSF Gross Blood (Tube 1) 2+ (0) CSF Volume (Tube 2) 1.5 ML CSF Supernatant Color (tube 2) XANTHOCHROMIC (CLEAR) CSF Gross Blood (Tube 2) 2+ (0) CSF Volume (Tube 3) 1.3 ML CSF Supernatant Color (tube 3) XANTHOCHROMIC (CLEAR) CSF Gross Blood (Tube 3) 2+ (0) CSF Volume (Tube 4) 1.0 ML CSF Supernatant Color (tube 4) XANTHOCHROMIC (CLEAR) CSF Gross Blood (Tube 4) 2+ (0) CSF WBC (Tube 4) 344 /MM3 (0-10) CSF RBC (Tube 4) 6147 /MM3 (NONE) CSF Neutrophils 82 % CSF Lymphocytes 6 % CSF Monocytes 10 % CSF Histiocytes 2 % CSF Glucose 46 MG/DL (40-80) CSF Total Protein 147.5 MG/DL (15.0-45.0) (CAMRYN ZEE) Result Diagram: 11/09/16 0325 11/09/16 0325 Microbiology Microbiology Date/Time Procedure Status Source Growth 11/07/16 01:47 Gram Stain - Final Complete Abscess Back 11/07/16 01:47 Wound Culture - Final Complete Staphylococcus Aureus 11/07/16 01:47 Acid Fast Stain - Final Resulted Abscess Back NO ACID FAST BACILLI SEEN 11/07/16 01:47 Mycobacterial Culture Resulted Abscess Back Pending 11/07/16 01:47 Fungal Smear - Final Resulted Abscess Back NO FUNGAL ELEMENTS SEEN. 11/07/16 01:47 Fungal Culture Resulted Abscess Back Pending 11/07/16 10:20 Aerobic Blood Culture - Preliminary Resulted Blood Peripheral NO GROWTH IN 2 DAYS 11/07/16 10:20 Anaerobic Blood Culture - Preliminary Resulted Blood Peripheral NO GROWTH IN 2 DAYS 11/07/16 10:25 Aerobic Blood Culture - Preliminary Resulted Blood Peripheral NO GROWTH IN 2 DAYS 11/07/16 10:25 Anaerobic Blood Culture - Preliminary Resulted Blood Peripheral NO GROWTH IN 2 DAYS 11/09/16 16:32 Gram Stain - Final Resulted Cerebral Spinal Fluid Lumbar Puncture 11/09/16 16:32 CSF Culture Resulted Cerebral Spinal Fluid Lumbar Puncture Pending 11/09/16 16:32 Acid Fast Stain Received Cerebral Spinal Fluid Lumbar Puncture Pending 11/09/16 16:32 Mycobacterial Culture Received Cerebral Spinal Fluid Lumbar Puncture Pending 11/09/16 16:32 Fungal Smear - Final Resulted Cerebral Spinal Fluid Lumbar Puncture NO FUNGAL ELEMENTS SEEN. 11/09/16 16:32 Fungal Culture Resulted Cerebral Spinal Fluid Lumbar Puncture Pending Imaging Last Impressions Chest X-Ray 11/09/16 0600 Signed Impressions: Service Date/Time: Wednesday, November 09, 2016 03:53 - CONCLUSION: Better aeration with bilateral parenchymal densities. Jacinto Blanco MD Lumbar Puncture Fluoroscopy 11/09/16 0000 Signed Impressions: Service Date/Time: Wednesday, November 09, 2016 16:21 - CONCLUSION: Uncomplicated lumbar drain placement as above. Naveed Rosenthal MD Lumbar Spine MRI 11/06/16 0000 Signed Impressions: Service Date/Time: Sunday, November 06, 2016 14:28 - CONCLUSION: 1. Postsurgical changes with a hematoma/seroma is noted in the posterior soft tissues just behind the spinal canal at the levels of L3-4 and L4-5. Abscess cannot be excluded. This postoperative finding measures 3.4 x 1.3 x 3.9 cm. Its creating an extra dural defect on the posterior aspect of the spinal canal. This along with broad-based bulging at L3-4 and L4-5 is causing moderate to prominent spinal canal stenosis. 2. There is primary bony degenerative changes of the lumbar spine with some disc space narrowing at L2-3 and L3-4. 3. Bilateral facet arthritis at multiple levels. Patrick Chavez MD Entire Spine MRI 11/06/16 0000 Signed Impressions: Service Date/Time: Sunday, November 06, 2016 14:28 - CONCLUSION: 1. As noted on the MRI lumbar spine there is a complex fluid collection in the soft tissues posterior to the spinal canal at the level of L4 measuring 3.4 x 3.1 x 3.9 cm suggestive of a postoperative hematoma/seroma. An abscess cannot be excluded. 2. Abnormal signal in the body of T2 suspicious for bony metastatic disease. 3. Status post fusion of C6-7. 4. Broad-based bulging with disc osteophyte complexes at C4-5 and C5-6. Possible myelopathy in the cord at this level. Patrick Chavez MD Lumbar Spine CT 11/05/16 0000 Signed Impressions: Service Date/Time: Saturday, November 05, 2016 04:14 - CONCLUSION: 1. Postop laminectomy at L4 level with fluid within the operative bed and a few scattered gas bubbles may be postsurgical change and possibly resolving hematoma, however abscess is not excluded. No definite signs of osteomyelitis. 2. Neural foramina compromise left L2-L3, bilateral L4-L5. 3. Bilateral masses compromise L5-S1. 4. Residual slight thecal sac stenosis may be present at L3-4 and L4-5. Deangelo Monsivais MD Head CT 11/05/16 0000 Signed Impressions: Service Date/Time: Saturday, November 05, 2016 16:08 - CONCLUSION: 1. No acute intracranial abnormality. Hussain Sandoval MD Abdomen/Pelvis CT 11/05/16 0000 Signed Impressions: Service Date/Time: Saturday, November 05, 2016 16:12 - CONCLUSION: 1. There is residual IV contrast within the kidneys and bladder. 2. There are no findings to indicate a bowel obstruction. 3. The patient is post hysterectomy. Hussain Sandoval MD . Procedures * 11/07/16 - Intubation * 11/07/16: debridement lumbar wound dehiscence, evacuation lumbar epidural abscess, indirect repair pre-existing dural tear Dr. Melissa . (CAMRYN ZEEP-Vivien) Assessment and Plan Disease Oriented Problem List: (1) Spinal epidural abscess (2) Postoperative CSF leak (3) Postoperative wound dehiscence (4) Leukocytosis (5) Sepsis (6) Respiratory failure (7) Anemia (8) Nausea & vomiting (9) Hypokalemia (10) Dural tear (11) Weakness (12) Dehydration Symptom Scale: (1) Back pain 0-10 Scale: Unable to quantify (2) Nausea & vomiting 0-10 Scale: Unable to quantify (3) Weakness 0-10 Scale: Unable to quantify Pertinent Non-Medical Issues Psychosocial: . Spiritual: Hindu clif. Legal: patient currently incapacitated. No written advance directives. [facility] [place] [facility] health care proxy decision-making falls to patient 's spouse. He is supported by their daughter Anna. Ethical issues impacting care: No known concerns at this time. . Important Contacts * Khari Leos, spouse: [phone] * Anna Poon, daughter: [phone] . Prognosis In review of notes neurosurgery, mental retardation nurse and infectious disease feel it will be difficult to completely treat this infection due to chances of recurrence secondary to CSF leak. Neurosurgery, Dr. Melissa note indicates he advised the family "that it would be best to continue with the head of bed flat and intubation and sedation to keep her comfortable and avoid straining to allow the CSF leak to seal. She will be monitored closely for signs of recurrent infection or CSF leakage. However further MRI imaging may be problematic, as it will be difficult to determine if she has recurrent abscess versus blood clot formation which is been allowed to form and packing material which has been placed to try to seal the CSF leak." . Code Status: Full Code Plan * Decision Maker: patient currently incapacitated. No written advance directives. According to [facility] health care proxy decision-making falls to patient's spouse. He is supported by their daughter Anna. * FULL CODE family considering code status * Palliative care met with patient/ family: family seems to have good understanding of current medical problems, high risk for further setbacks decline or even . Family understands overall poor prognosis. They have elected FULL CODE at this time. Family desires continued aggressive care at this time. * SYMPTOMS: Pain: unable to quantify or qualify pain, pain secondary to epidural abscess, recent surgeries, bedbound status and history of chronic back pain. 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 Weakness: secondary to epidural abscess, infection, dural tear. Continue supine position at this time per neurosurgery recommendations. Dyspnea: currently sedated on mechanical ventilation. No new medication recommendations at this time. * Palliative care will continue to follow throughout hospital course to assist with symptom management and clarification of goals as needed. . (CAMRYN ZEE) Time Spent Total Floor Time (mins): 50 Face to Face Time (mins): 35 >50% Counseling/Coord of Care: Yes (CAMRYN ZEE) Attestation To help prompt me to consider important information that might be impacting today's encounter and assessment, information from prior notes written by myself or my colleagues may have been "brought forward" into today's note. My signature on this note, however, is an attestation that I personally performed the exam, history, and/or decision-making noted today, and, unless otherwise indicated, the interactions with patient, family, and staff as well as the review of records all occurred today. I also attest that the listed assessment and stated plan reflect my best clinical judgment today based on the combination of historical information, prior notes, and today's exam/ interactions. When time spent is documented, it refers only to time spent today by the signer, or if indicated, combined time spent today by collaborating physician/nurse practitioner. (CAMRYN ZEE) Collaborating MD Comments . Chart reviewed. Cased discussed with palliative care DANCE HALL HOST/HOSTESS. Above DANCE HALL HOST/HOSTESS note reviewed and I concur. . (Manuel Fernandez MD) CAMRYN ZEE Nov 09, 2016 18:57 Manuel Fernandez MD December 27, 2016 14:54
[2016-11-09] MEDS: CLINIMIX E 4.25/5 1000 mL- </= 42 mls/hr IV SCH ×3 (20:18)
[2016-11-09] MEDS: FAT EMULSION 20% INJ 250 ML (@10 mls/hr) IV SCH (20:19)
[2016-11-10] VITALS (19 sets, daily range): BP systolic 129–177; BP diastolic 55–80; PULSE 81–92; RESP 15–20; TEMP 98–100.3; O2SAT 100
[2016-11-10] MEDS: HYDROmorphone HCL PF 1 MG/ML VIAL IV PUSH PRN ×5 (00:36→20:17)
[2016-11-10] MEDS: RESP: ALBUTEROL 2.5 MG/IPRATROPIUM 0.5 MG NEB (SCH) INH ×4 (03:14→20:33)
[2016-11-10] MEDS: VANCOMYCIN INJ 1,250 MG in SODIUM CHLOR 0.9% 250 ML INJ 250 ML IV SCH ×2 (03:14→20:16)
[2016-11-10] MEDS: CHLORHEXIDINE GLUCONATE 2 % 1 PACK (2 CLOTHS) TOP SCH (04:00)
[2016-11-10 04:25] LABS: HEMATOCRIT 23.7 % (35.0-46.0); MEAN CELL VOLUME 93.8 FL (80.0-100.0); MEAN CORPUSCULAR HEMOGLOBIN 33.3 PG (27.0-34.0); MEAN CORPUSCULAR HGB CONC 35.6 % (32.0-36.0); PLATELET COUNT 166 TH/MM3 (150-450); RED BLOOD COUNT 2.53 MIL/MM3 (4.00-5.30); RED CELL DISTRIBUTION WIDTH 13.5 % (11.6-17.2); REVIEW FLAG FINAL; WHITE BLOOD COUNT 8.5 TH/MM3 (4.0-11.0)
[2016-11-10] MEDS: FAMOTIDINE 20 MG/2 ML VIAL IV PUSH SCH ×2 (04:40→17:15)
[2016-11-10 04:53] LABS: BICARBONATE 26.3 MEQ/L (21.0-32.0); MAGNESIUM 1.3 MG/DL (1.5-2.5); POTASSIUM 3.2 MEQ/L (3.5-5.1)
[2016-11-10] MEDS: INSULIN ASPART SUPPLEMENTAL SCALE SQ SCH ×4 (05:30→18:00)
[2016-11-10] MEDS: POTASSIUM PHOSPHATE INJ 30 MMOL in SODIUM CHLOR 0.9% 250 ML INJ 250 ML IV PRN (06:09)
[2016-11-10] MEDS: CHLORHEXIDINE 0.12% (ORAL KIT) 15 ML CUP MT SCH ×2 (08:43→20:15)
[2016-11-10] MEDS: POTASSIUM PHOSPHATE MONOBASIC 500 MG TAB PO SCH (08:43)
[2016-11-10] MEDS: SODIUM CHLORIDE 0.9% FLUSH 10 ML FLUSH IV FLUSH SCH ×2 (08:43→20:16)
[2016-11-10] MEDS: SODIUM CHLORIDE 0.9% FLUSH 10 ML FLUSH IV FLUSH PRN ×2 (09:00→14:27)
--- NOTE | 2016-11-10 10:52 | HHI.CCPN ---
Subjective Remarks/Hospital Course This 86 year-old woman who presents to the emergency department complaining of nausea vomiting, low back pain, and chills on 11/05/2016. She has a history of metastatic endometrial cancer diagnosed 5 years ago initially, as well as chronic back pain. The chronic back pain preceded the malignancy. Most recent PET scan as reported by daughter revealed multiple bony metastasis to include skull, and right upper arm. She underwent an L4-L5 laminectomy about 2 weeks ago in [facility] . Prior to her surgery , the patient was extremely physically active without any ambulation difficulties.She was doing well initially but over the past several days complained of increased nausea vomiting, increased low back pain, and chills. Upon admission incision has not had any drainage or bleeding,and she denied any urinary symptoms. The patient was admitted to [facility] on 11/05/2016, she subsequently has begun to have leukocytosis, urinary retention and noted drainage from lumbar laminectomy surgical site. Lumbar CT scan revealed postop laminectomy L4 with fluid and scattered bubbles possibly resolving hematoma, abscess could not be excluded. ID and Neurosurgery was consulted.Critical care medicine is consult that for patients noted sepsis, and progressive weakness bilateral lower extremities. Subjective: 11/07 Seen upon return from the OR following lumbar wound debridement and evacuation of epidural abscess by Dr. Melissa. Patient is to remain intubated per Dr. Melissa as she must be maintained with HOB flat due to dural leak (but rotate side to side q2 hours). At present she is not on continuous sedation, but is unresponsive to deep noxious stimuli upon return from general anesthesia. Reportedly large amount of respiratory secretions noted upon intubation by anesthesia. Routine airway per documentation. She received 1800 crystalloid intraoperatively. EBL 20 ml. 11/08: Afebrile. Patient remains on propofol infusion, moving bilateral upper and lower extremities wiggling toes and moving upper extremities. The patient was inadvertently placed on fentanyl infusion last night for purported pain. Fentanyl infusion discontinued, patient on when necessary pain medicine now currently following commands and denies pain. Leukocytosis resolved, the patient continues on Flagyl, Vancomycin and Ceptazidime per ID Dr. Nina. The patient remains flat in bed, supine position in order to begin nutrition PPN was initiated this a.m.. Extensive discussion with Dr. Melissa and Dr. Nina and palliative care consulted with planned discussion with family today. 11/09: Leukocytosis resolved. Wound culture was noted staph aureus. Patient was noted to have hypophosphatemia and hypomagnesemia ischemia which are being currently replaced. PPN was initiated for nutritional support secondary to put required positioning. Palliative care was consulted to discuss goals of care, currently aggressive treatment management continued per family request. 11/10: Afebrile .No acute events overnight. Patient underwent placement of CSF drain yesterday by interventional radiology. Patient's head of the bed to remain flat until Tuesday. The patient continues to have low phosphate and was placed on scheduled doses of phosphorus yesterday. Family requesting medication administration of vitamin C secondary to a small non-scientific research study that was published recently. Explained to family that it wasn't in evidence-based full research study performed but a small study without any level of evidence for implementation in the [place] at this time. Vitamin C is not indicated at this time. The family was educated by neurosurgery that the patient may have to possibly have surgery. Objective Vital Signs Date Time Temp Pulse Resp B/P Pulse Ox O2 Delivery O2 Flow Rate FiO2 11/10/16 07:47 100 30 11/10/16 06:00 83 11/10/16 04:00 98.0 15 129/63 144/55 11/07/16 16:00 Mechanical Ventilator 11/06/16 20:00 2.00 Intake and Output 11/09/16 11/09/16 11/10/16 08:00 16:00 00:00 Intake Total 820 ml 603 ml 342 ml Output Total 700 ml 850 ml 300 ml Balance 120 ml -247 ml 42 ml Result Diagram: 11/10/16 0400 11/10/16 0400 Imaging Last Impressions Chest X-Ray 11/05/16 0150 Signed Impressions: Service Date/Time: Saturday, November 05, 2016 01:56 - CONCLUSION: No acute cardiopulmonary disease. Deangelo Monsivais MD Lumbar Spine CT 11/05/16 0000 Signed Impressions: Service Date/Time: Saturday, November 05, 2016 04:14 - CONCLUSION: 1. Postop laminectomy at L4 level with fluid within the operative bed and a few scattered gas bubbles may be postsurgical change and possibly resolving hematoma, however abscess is not excluded. No definite signs of osteomyelitis. 2. Neural foramina compromise left L2-L3, bilateral L4-L5. 3. Bilateral masses compromise L5-S1. 4. Residual slight thecal sac stenosis may be present at L3-4 and L4-5. Deangelo Monsivais MD Head CT 11/05/16 0000 Signed Impressions: Service Date/Time: Saturday, November 05, 2016 16:08 - CONCLUSION: 1. No acute intracranial abnormality. Hussain Sandoval MD Abdomen/Pelvis CT 11/05/16 0000 Signed Impressions: Service Date/Time: Saturday, November 05, 2016 16:12 - CONCLUSION: 1. There is residual IV contrast within the kidneys and bladder. 2. There are no findings to indicate a bowel obstruction. 3. The patient is post hysterectomy. Hussain Sandoval MD Objective Remarks Drips: PPN 42cc/hr GENERAL: Elderly female who is orotracheally intubated and sedated SKIN: Warm and dry. HEAD: Atraumatic. Normocephalic. EYES: Pupils 2 mm bilaterally and sluggishly reactive. No scleral icterus. No injection or drainage. ENT: No nasal bleeding or discharge. NECK: Trachea midline. No JVD. CARDIOVASCULAR: Normal rate, regular rhythm. 2/6 systolic murmur left sternal border RESPIRATORY: No accessory muscle use. ET tube in place. Occasional coarse rhonchi. On mechanical ventilation ACV tidal volume 450/rate 15/PEEP 5/FiO2 35% GASTROINTESTINAL: Healed abdominal incision noted. Bowel sounds hypoactive. No tenderness appreciable : Jean-Baptiste in place with light yellow urine output. MUSCULOSKELETAL: Extremities without clubbing, cyanosis, or edema. No obvious deformities. NEUROLOGICAL: RASS 0. Opens eyes, follows commands with squeeze bilateral hands. Does move bilateral feet including plantar flexion with minimal extension. Urinary Catheter: Yes Jean-Baptiste insert reason: Measure Accurate Output A/P Assessment and Plan Plan by systems: Neurologic: Metabolic encephalopathy secondary to sepsis Lumbar epidural abscess Status post lumbar wound debridement and drainage epidural abscess 11/07/16 (Dr. Melissa) GCS 11T-response Neurochecks every 2 hour per ICU protocol 11/05 CT lumbar spine-postop laminectomy L4 with fluid and scattered bubbles possibly resolving hematoma. Abscess cannot be excluded. Neural foraminotomy not compromise left L2-3, L4-L5, residual thecal sac stenosis may be present L3 L4, L4-L5,B/L mass compromise L5-S1. MRI -post surgical changes with hematoma/seroma ? Abscess L3/L4 and L4/L5. 11/07-postop CSF leak, spinal epidural abscess, postoperative wound dehiscence, pre-existing dural tear with repair, status post debridement lumbar wound dehiscence, evacuation of lumbar abscess indirect repair of pre-existing dural tear Reportedly persistent dural leak noted intraoperatively. Patient is to remain head of bed down/supine per Dr. Melissa. 11/06-Ammonia level 10. EEG 11/06/16moderately slow background consistent with encephalopathy. No epileptiform features. Neurology following, Dr. Thomson NSG following, Dr. Melissa 11/09 IR CSF drain L1-L2 Respiratory: Acute respiratory failure Duo nebs every 6 hours scheduled ACV tidal line 450/rate 15/P5/FiO2 40%. Follow-up ABG as appropriate. Will wean FiO2. Ventilator bundle Maintain head of bed flat per neurosurgery recommendations Cardiovascular: Maintain MAP > 65 mmHg Currently normotensive without vasopressor support FEN/RENAL Acute kidney injury Neurogenic bladder with urinary retention. Hypomagnesemia Hypophosphatemia Urinary retention noted upon Jean-Baptiste insertion. Jean-Baptiste to remain in place for accurate intake and output assessment. Monitor electrolytes and replace as indicated. Received 1800 crystalloid intraoperatively. Electrolyte replacement per ICU protocol Scheduled doses of phosphorus GI: Moderate protein energy malnutrition PPN Patient position supine, unable to begin tube feeds. PPN initiated with lipid supplementation 11/[address] Hale, no GI issues identified. ID: Severe sepsis-resolved Leukocytosis-resolved Antibiotics per infectious disease, Dr. Anayeli Nina currently on Flagyl vancomycin and Ceptazidime attending HEME: Metastatic Endometrial cancer s/p recent chemotherapy 10/06 Chronic anemia Monitor CBC Endocrine: Low-dose insulin sliding scale at bedside glucose every 6 hours. GI Prophylaxis Pepcid twice a day DVT Prophylaxis -- SCDs. Hold pharmacologic DVT prophylaxis until approved by neurosurgery. ACCESS: Port accessed right chest. Left radial art line placed in OR 11/07 day # 4 This patient remains critically ill with one or more organ systems which are or may become a threat to life. 31 minutes exclusive of separately billable procedures. The patient remains HOB flat.Palliative care has been consulted the cases been discussed with Dr. Melissa and Dr. Nina prognosis is guarded at this time . Physician Juanita Hutchison MD Nov 10, 2016 10:52
--- NOTE | 2016-11-10 11:00 | HHI.PR ---
Subjective Remarks On ventilator sedated with low dose diprivan . Appears comfortable Objective Vital Signs Date Time Temp Pulse Resp B/P Pulse Ox O2 Delivery O2 Flow Rate FiO2 11/10/16 07:47 100 30 11/10/16 06:00 83 11/10/16 04:00 35 11/10/16 04:00 81 11/10/16 04:00 98.0 81 15 129/63 100 144/55 11/10/16 03:56 100 30 11/10/16 02:00 82 11/10/16 00:39 100 35 11/10/16 00:00 100.3 81 19 136/64 100 155/65 11/10/16 00:00 81 11/10/16 00:00 35 11/09/16 22:00 82 11/09/16 20:21 100 35 11/09/16 20:00 35 11/09/16 20:00 99.1 81 16 126/60 100 152/63 11/09/16 20:00 81 11/09/16 18:36 15 11/09/16 18:10 100.0 76 15 118/56 99 136/56 11/09/16 18:00 35 11/09/16 18:00 76 11/09/16 17:43 100 35 11/09/16 16:00 89 16 143/73 100 11/09/16 15:15 100 100 11/09/16 14:00 81 11/09/16 12:00 99.1 86 16 152/70 100 159/66 11/09/16 12:00 86 11/09/16 12:00 35 11/09/16 11:16 100 35 I/O 11/09/16 11/09/16 11/09/16 11/10/16 11/10/16 11/10/16 07:00 15:00 23:00 07:00 15:00 23:00 Intake Total 820 ml 603 ml 342 ml 890 ml Output Total 700 ml 850 ml 300 ml 500 ml Balance 120 ml -247 ml 42 ml 390 ml Intake IV Total 449 ml 603 ml 29 ml 524 ml TPN/PPN 300 ml 253 ml 296 ml Lipid 71 ml 60 ml 70 ml Output Urine Total 700 ml 850 ml 300 ml 500 ml Drainage Total 0 ml 0 ml # Bowel Movements 0 0 0 0 Result Diagram: 4/12/17 0400 4/12/17 0400 Imaging Last 48 hours Impressions Chest X-Ray 11/09/16 0600 Signed Impressions: Service Date/Time: Wednesday, November 09, 2016 03:53 - CONCLUSION: Better aeration with bilateral parenchymal densities. Jacinto Blanco MD Lumbar Puncture Fluoroscopy 11/09/16 0000 Signed Impressions: Service Date/Time: Wednesday, November 09, 2016 16:21 - CONCLUSION: Uncomplicated lumbar drain placement as above. Naveed Rosenthal MD Procedures evacuation of epidural abscess 11/07 had laminectomy 2 weeks ago Objective Remarks GENERAL: Sedated on ventilator SKIN: Warm and dry. Lumbar dressing on back HEAD: Normocephalic. EYES: No scleral icterus. No injection or drainage. NECK: Supple, trachea midline. No JVD or lymphadenopathy. CARDIOVASCULAR: Regular rate and rhythm without murmurs, gallops, or rubs. RESPIRATORY: Breath sounds equal bilaterally. No accessory muscle use. Intubated GASTROINTESTINAL: Abdomen soft, non-tender, nondistended. MUSCULOSKELETAL: No cyanosis. Generalized edema Medications and IVs Current Medications Medications (Trade) Dose Ordered Sig/Aleja Route Start Time Stop Time Status Last Admin (Vancomycin Consult Pharmacy) ml @ 0 mls/hr UNSCH OTHER 11/05/16 16:45 (Tylenol Supp) 650 mg Q4H PRN RECTAL 11/05/16 18:30 11/05/16 18:30 (NS Flush) 2 ml UNSCH PRN IV FLUSH 11/06/16 12:30 11/10/16 09:00 (NS Flush) 2 ml BID IV FLUSH 11/06/16 21:00 11/10/16 08:43 (Tylenol) 650 mg Q6H PRN PO 11/06/16 12:30 11/08/16 16:01 (Zofran Inj) 4 mg Q6H PRN IV 11/06/16 12:30 (Dulcolax Supp) 10 mg DAILY PRN RECTAL 11/06/16 12:30 Miscellaneous Information 1 Q361D XX 11/06/16 12:30 (Chlorhexidine 2% Cloth) 3 pack Taper DAILY@04 TOP 11/07/16 04:00 11/03/17 03:59 11/10/16 04:00 (Chlorhexidine 2% Cloth) 3 pack UNSCH PRN TOP 11/06/16 12:30 (D50w (Vial) Inj) 25 ml UNSCH PRN IV PUSH 11/06/16 14:15 Glucagon 1 mg 1 mg UNSCH PRN OTHER 11/06/16 14:15 (Diprivan 1000 Mg/100ml Inj) 100 ml @ 0 mls/hr TITRATE IV 11/07/16 03:45 11/09/16 17:46 (Peridex 0.12% Liq) 15 ml BID@08,20 MT 11/07/16 08:00 11/10/16 08:43 (D50w (Vial) Inj) 25 ml UNSCH PRN IV PUSH 11/07/16 04:15 (Glucagon Inj) 1 mg UNSCH PRN OTHER 11/07/16 04:15 Insulin Aspart 1 1 Q6H SQ 11/07/16 06:00 Potassium Chloride 100 ml @ 50 mls/hr Q2H PRN IV-CENTRAL 11/07/16 08:45 11/07/16 23:30 Potassium Chloride 100 ml @ 50 mls/hr Q2H PRN IV 11/07/16 08:45 Potassium Chloride 100 ml @ 25 mls/hr UNSCH PRN IV-CENTRAL 11/07/16 08:45 Potassium Chloride 100 ml @ 50 mls/hr Q2H PRN IV 11/07/16 08:45 (Magnesium Sulfate Inj/NS Inj) 100 ml @ 50 mls/hr UNSCH PRN IV 11/07/16 08:45 Magnesium Oxide 800 mg 800 mg UNSCH PRN PO 11/07/16 08:45 (Magnesium Sulfate Inj/NS Inj) 100 ml @ 50 mls/hr UNSCH PRN IV 11/07/16 08:45 11/07/16 10:25 Potassium Phosphate 2000 mg 2,000 mg Q4H PRN PO 11/07/16 08:45 (Sodium Phosphate Inj/NS 250 ml Inj) 250 ml @ 42 mls/hr UNSCH PRN IV 11/07/16 08:45 Potassium Phosphate 2000 mg 2,000 mg UNSCH PRN PO/TUBE 11/07/16 08:45 (Potassium Phosphate Inj/NS 250 ml Inj) 260 ml @ 42 mls/hr UNSCH PRN IV 11/07/16 08:45 11/10/16 06:09 (Pepcid Inj) 20 mg Q12H IV PUSH 11/07/16 16:00 11/10/16 04:40 Metoprolol Tartrate 2.5 mg 2.5 mg Q6H PRN IV PUSH 11/08/16 14:45 11/09/16 22:29 Multivitamins 10 ml/Folic Acid 1 mg/Amino Acids/ Electrolytes/ Dextrose 1,010.2 ml @ 42 mls/hr Q24H IV 11/08/16 20:00 11/09/16 20:18 (Liposyn Iii 20% Inj) 250 ml @ 10 mls/hr Q24H IV 11/08/16 20:00 11/09/16 20:19 Hydromorphone HCl 1 mg 1 mg Q2HR PRN IV PUSH 11/08/16 15:45 11/10/16 09:00 Sodium Chloride 1,000 ml @ 0 mls/hr Q0M IV 11/09/16 09:53 (Vancomycin Inj/ NS 250 ml Inj) 262.5 ml @ 250 mls/hr Q18H IV 11/10/16 03:00 11/10/16 03:14 Miscellaneous Information SPECIFIC LAB TO BE DRAWN:VANCOMYCIN TROUGH DATE TO... ONCE ONCE .XX 11/11/16 14:45 11/11/16 14:46 Potassium Phosphate 500 mg 500 mg DAILY PO 11/10/16 09:00 11/10/16 08:43 (Ancef Inj/NS Inj) 100 ml @ 200 mls/hr Q8HR IV 11/09/16 22:00 11/10/16 05:28 Assessment and Plan Problem List: (1) Spinal epidural abscess Status: Acute Plan: Patient to surgery on an urgent basis on the for evacuation of epidural abscess, wound debridement. Patient found to have pre-existing dural tear with CSF leakage which could not be primarily repaired. Indirect repair of dural tear with blood clot, Gelfoam, thrombin, tissue glue and reclosure of wound site. Dressing on site. Patient lying flat until Tuesday. Lumbar drain placed yesterday. Not draining. Palliative care consult ordered continue with aggressive care per family request. (2) Sepsis Status: Acute Plan: ID consulted and managing. Positive blood cultures for staph. On antibiotics. 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 On ventilator with Diprivan for sedation (4) Anemia Status: Acute Plan: HGB 8.5. Will monitor (5) Abnormal blood electrolyte level Status: Acute Plan: Potassium, phosphorus, aand magnesium low on replacement. Assessment and Plan Assessment and plan discussed with Dr. Kendrick. Palliative care following Dayanara Barbour Nov 10, 2016 11:00
[2016-11-10] MEDS: PROPOFOL 1000 MG/100 ML INJ 100 ML IV SCH (12:58)
--- NOTE | 2016-11-10 16:19 | HHI.IDPN ---
Subjective Subjective Remarks is an 86 y/o CF with PMHx of endometrial cancer s/p chemotherapy 5 yrs back as well as surgery. Patient reportedly had recurrence with endometrial cancer involving multiple bones of the body. She underwent 2nd set of chemotherapy for metastatic endometrial cancer. Her Ob-Casework Supervisor oncologist is Dr.Kelly Marin. Patient has a port used for chemotherapy. Most recent PET scan as reported by daughter revealed multiple bony metastasis to include skull, and right upper arm. She underwent an L4-L5 laminectomy about 2 weeks ago in [facility]. Prior to her surgery , the patient was extremely physically active without any ambulation difficulties. She did not have any bowel bladder issues. With this background patient presents to the ED with complains of nausea, vomiting, low back pain, and chills on 11/05/2016. She was doing well initially but over the past several days complained of increased nausea, vomiting, increased low back pain, and chills. Patient's daughter reports discharge from the surgical site beginning the day prior to admission. Upon discussion with RN , patient has been wetting her bed but not voiding. No bleeding. No incontinence of bowel although suspicious bladder overflow secondary to retention. Lumbar CT scan revealed postop laminectomy L4 with fluid and scattered bubbles possibly resolving hematoma, abscess could not be excluded. ID and Critical care medicine is consulted for patients noted sepsis, and progressive weakness bilateral lower extremities. Overnight events reviewed. No fever No rash No diarrhea Remains intubated (35% FiO2, PEEP 5) Not on pressors. Opens eyes spontaneously, wiggles bilateral LE toes. Lumbar drain not draining much but wound dressing soaked. IR and aware. Antibiotics Ancef IV Vanco IV Lines Line sites with no e.o infection. Past Medical History reviewed. Allergies: Coded Allergies: Penicillin (Verified Allergy, Severe, Rash, 11/06/16) Rash 2 decades back. Objective . Vital Signs Date Time Temp Pulse Resp B/P Pulse Ox O2 Delivery O2 Flow Rate FiO2 11/10/16 15:34 100 30 11/10/16 14:00 91 11/10/16 12:00 30 11/10/16 12:00 98.5 86 18 158/73 100 130/73 11/10/16 12:00 87 11/10/16 11:37 100 30 11/10/16 10:00 88 11/10/16 08:00 91 11/10/16 08:00 30 11/10/16 08:00 98.2 91 15 170/80 100 177/71 11/10/16 07:47 100 30 11/10/16 06:00 83 11/10/16 04:00 35 11/10/16 04:00 81 11/10/16 04:00 98.0 81 15 129/63 100 144/55 11/10/16 03:56 100 30 11/10/16 02:00 82 11/10/16 00:39 100 35 11/10/16 00:00 100.3 81 19 136/64 100 155/65 11/10/16 00:00 81 11/10/16 00:00 35 11/09/16 22:00 82 11/09/16 20:21 100 35 11/09/16 20:00 35 11/09/16 20:00 99.1 81 16 126/60 100 152/63 11/09/16 20:00 81 11/09/16 18:36 15 11/09/16 18:10 100.0 76 15 118/56 99 136/56 11/09/16 18:00 35 11/09/16 18:00 76 11/09/16 17:43 100 35 11/09/16 11/09/16 11/10/16 15:00 23:00 07:00 Intake Total 603 ml 342 ml 890 ml Output Total 850 ml 300 ml 500 ml Balance -247 ml 42 ml 390 ml Intake IV Total 603 ml 29 ml 524 ml TPN/PPN 253 ml 296 ml Lipid 60 ml 70 ml Output Urine Total 850 ml 300 ml 500 ml Drainage Total 0 ml 0 ml # Bowel Movements 0 0 0 . Laboratory Tests Test 11/09/16 11/10/16 03:25 04:00 White Blood Count 8.0 TH/MM3 8.5 TH/MM3 Red Blood Count 2.57 MIL/MM3 2.53 MIL/MM3 Hemoglobin 8.5 GM/DL 8.4 GM/DL Hematocrit 24.3 % 23.7 % Mean Corpuscular Volume 94.5 FL 93.8 FL Mean Corpuscular Hemoglobin 33.1 PG 33.3 PG Mean Corpuscular Hemoglobin 35.0 % 35.6 % Concent Red Cell Distribution Width 13.9 % 13.5 % Platelet Count 175 TH/MM3 166 TH/MM3 Mean Platelet Volume 8.4 FL 8.6 FL Laboratory Tests Test 11/09/16 11/09/16 11/10/16 03:25 18:50 04:00 Sodium Level 141 MEQ/L 136 MEQ/L Potassium Level 3.2 MEQ/L 3.3 MEQ/L 3.2 MEQ/L Chloride Level 107 MEQ/L 102 MEQ/L Carbon Dioxide Level 25.0 MEQ/L 26.3 MEQ/L Anion Gap 9 MEQ/L 8 MEQ/L Blood Urea Nitrogen 17 MG/DL 15 MG/DL Creatinine 0.23 MG/DL 0.27 MG/DL Estimat Glomerular Filtration 287 ML/MIN 239 ML/MIN Rate Random Glucose 126 MG/DL 139 MG/DL Calcium Level 8.3 MG/DL 7.8 MG/DL Phosphorus Level 1.4 MG/DL 1.3 MG/DL Magnesium Level 1.5 MG/DL 1.3 MG/DL Microbiology Date/Time Procedure Status Source Growth 11/09/16 16:32 Gram Stain - Final Resulted Cerebral Spinal Fluid Lumbar Puncture 11/09/16 16:32 CSF Culture - Preliminary Resulted Cerebral Spinal Fluid Lumbar Puncture NO GROWTH IN 24 HOURS. 11/09/16 16:32 Acid Fast Stain Received Cerebral Spinal Fluid Lumbar Puncture Pending 11/09/16 16:32 Mycobacterial Culture Received Cerebral Spinal Fluid Lumbar Puncture Pending 11/09/16 16:32 Fungal Smear - Final Resulted Cerebral Spinal Fluid Lumbar Puncture NO FUNGAL ELEMENTS SEEN. 11/09/16 16:32 Fungal Culture Resulted Cerebral Spinal Fluid Lumbar Puncture Pending Imaging Last Impressions Chest X-Ray 11/07/16 0600 Signed Impressions: Service Date/Time: Monday, November 07, 2016 04:40 - CONCLUSION: Bibasilar and left suprahilar areas of linear density likely related to atelectasis or mild consolidation. There is a possible bone lesion in the proximal right humerus. Naveed Michael MD Lumbar Spine MRI 11/06/16 0000 Signed Impressions: Service Date/Time: Sunday, November 06, 2016 14:28 - CONCLUSION: 1. Postsurgical changes with a hematoma/seroma is noted in the posterior soft tissues just behind the spinal canal at the levels of L3-4 and L4-5. Abscess cannot be excluded. This postoperative finding measures 3.4 x 1.3 x 3.9 cm. Its creating an extra dural defect on the posterior aspect of the spinal canal. This along with broad-based bulging at L3-4 and L4-5 is causing moderate to prominent spinal canal stenosis. 2. There is primary bony degenerative changes of the lumbar spine with some disc space narrowing at L2-3 and L3-4. 3. Bilateral facet arthritis at multiple levels. Patrick Chavez MD Entire Spine MRI 11/06/16 Signed Impressions: Service Date/Time: Sunday, November 06, 2016 14:28 - CONCLUSION: 1. As noted on the MRI lumbar spine there is a complex fluid collection in the soft tissues posterior to the spinal canal at the level of L4 measuring 3.4 x 3.1 x 3.9 cm suggestive of a postoperative hematoma/seroma. An abscess cannot be excluded. 2. Abnormal signal in the body of T2 suspicious for bony metastatic disease. 3. Status post fusion of C6-7. 4. Broad-based bulging with disc osteophyte complexes at C4-5 and C5-6. Possible myelopathy in the cord at this level. Patrick Chavez MD Lumbar Spine CT 11/05/16 Signed Impressions: Service Date/Time: Saturday, November 05, 2016 04:14 - CONCLUSION: 1. Postop laminectomy at L4 level with fluid within the operative bed and a few scattered gas bubbles may be postsurgical change and possibly resolving hematoma, however abscess is not excluded. No definite signs of osteomyelitis. 2. Neural foramina compromise left L2-L3, bilateral L4-L5. 3. Bilateral masses compromise L5-S1. 4. Residual slight thecal sac stenosis may be present at L3-4 and L4-5. Deangelo Monsivais MD Head CT 11/05/16 Signed Impressions: Service Date/Time: Saturday, November 05, 2016 16:08 - CONCLUSION: 1. No acute intracranial abnormality. Hussain Sandoval MD Abdomen/Pelvis CT 11/05/16 Signed Impressions: Service Date/Time: Saturday, November 05, 2016 16:12 - CONCLUSION: 1. There is residual IV contrast within the kidneys and bladder. 2. There are no findings to indicate a bowel obstruction. 3. The patient is post hysterectomy. Hussain Sandoval MD Physical Exam GENERAL: This is a well-nourished, well-developed patient, in no apparent distress. SKIN: No rashes, ecchymoses or lesions. Cool and dry. HEAD: Atraumatic. Normocephalic. No temporal or scalp tenderness. EYES: Pupils equal round and reactive. Extraocular motions intact. No scleral icterus. No injection or drainage. ENT: Nose without bleeding, purulent drainage or septal hematoma. NECK: Intubated CARDIOVASCULAR: RRR RESPIRATORY: Clear to auscultation. Breath sounds equal bilaterally. GASTROINTESTINAL: Abdomen soft, nondistended. Midline old surgical scar intact, suprapubic tenderness noted. MUSCULOSKELETAL: Extremities without clubbing, cyanosis, or edema. No joint tenderness, effusion, or edema noted. No calf tenderness. Negative Homans sign bilaterally. NEUROLOGICAL: Opens eyes, wiggles bilateral toes. Left LE weakness noted 3+/5 in left foot, knee level. No pain or restriction in motion at hip level. Psych: cooperative IV line sites with no e.o infection. Assessment & Plan Remarks Sepsis present on admission (fever, tachycardia, WBC elevation, Encephalopathy) Surgical site infection at Lumbar Laminectomy (Surgery done at [facility]) Gram positive bacteremia likely source Surgical Site infection. Staph epidermidis bacteremia. 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 Acute metabolic encephalopathy: sepsis, ? acute meningitis secondary to spine surgical site infection, epidural abscess Acute renal failure: prerenal, acute urinary retention. Endometrial cancer with mets to multiple bones. PCN allergy clarified. Aspiration risk. Hypoalbuminemia Recs: Continue Ancef IV Continue Vanco IV for now (target 15-20) Follow CSF drain cultures. rose LEW MD. Palliative care consult appreciated. Nichole Nina MD Nov 10, 2016 16:19
--- NOTE | 2016-11-10 17:53 | HHI.HCPN ---
Reason for visit a. To assist with evaluation and management of symptoms including: pain, weakness. b. To assist medical decision maker(s) with: better understanding of current medical conditions; weighing benefits/burdens of medical treatment options; making medical treatment decisions. . (CAMRYN ZEE) Subjective/Interval History Patient seen and examined in ICU. Spouse, daughter, granddaughter at bedside. Discussed with Dr. Guthrie. Discussed with nurse, Apoorva who reports lumbar drain has not been draining, IR and Dr. Melissa aware, awaiting further recommendations from Dr. Melissa. Family aware. Reviewed CODE status with spouse at bedside, he reports he desires FULL CODE indicating he has never talked to her about these things. He and family desires continued aggressive care "whatever can be done to try." Tmax 100.3. Nurse reports labile blood pressures. . Family/friend interactions See interval note. . (CAMRYN ZEE) Advance Directives Living Will: Never completed Health Care Surrogate: Never completed Durable Power of Linseed Oil Boiler: Never completed (CAMRYN ZEE) Advance Directive Specifics Health Care Surrogate(s): Patient is currently incapacitated to make her own health care decisions. According to [place] statutes health care proxy decision-making falls to the patient's spouse. He is supported by their daughterAnna. . Significant change in goals: FULL CODE. Family desires continued aggressive care. . (CAMRYN ZEE) Objective Vital Signs Date Time Temp Pulse Resp B/P Pulse Ox O2 Delivery O2 Flow Rate FiO2 11/10/16 16:00 98.3 85 20 137/65 100 154/64 11/10/16 16:00 85 11/10/16 16:00 30 11/10/16 15:34 100 30 11/10/16 14:00 91 11/10/16 12:00 30 11/10/16 12:00 98.5 86 18 158/73 100 130/73 11/10/16 12:00 87 11/10/16 11:37 100 30 11/10/16 10:00 88 11/10/16 08:00 91 11/10/16 08:00 30 11/10/16 08:00 98.2 91 15 170/80 100 177/71 11/10/16 07:47 100 30 11/10/16 06:00 83 11/10/16 04:00 35 11/10/16 04:00 81 11/10/16 04:00 98.0 81 15 129/63 100 144/55 11/10/16 03:56 100 30 11/10/16 02:00 82 11/10/16 00:39 100 35 11/10/16 00:00 100.3 81 19 136/64 100 155/65 11/10/16 00:00 81 11/10/16 00:00 35 11/09/16 22:00 82 11/09/16 20:21 100 35 11/09/16 20:00 35 11/09/16 20:00 99.1 81 16 126/60 100 152/63 11/09/16 20:00 81 11/09/16 18:36 15 11/09/16 18:10 100.0 76 15 118/56 99 136/56 11/09/16 18:00 35 11/09/16 18:00 76 11/09/16 17:43 100 35 Intake & Output 11/10/16 11/10/16 07:00 19:00 Intake Total 1232 ml 1007 ml Output Total 800 ml 600 ml Balance 432 ml 407 ml Intake IV Total 553 ml 495 ml TPN/PPN 549 ml 414 ml Lipid 130 ml 98 ml Output Urine Total 800 ml 600 ml Drainage Total 0 ml # Bowel Movements 0 0 Physical Exam CONSTITUTIONAL/GENERAL: This is critically ill patient, sedated on mechanical ventilation. TUBES/LINES/DRAINS: ETT, OG, right chest port, PIV, Jean-Baptiste, bilateral soft wrist restraints, SCD's. SKIN: No jaundice, rashes, or lesions. Ecchymoses on upper extremities. No wounds seen anteriorly. Skin temperature appropriate. Not diaphoretic. EYES: eyes closed. ENT: Hearing appears grossly normal, patient opens eyes to voice. Nose without bleeding or purulent drainage. Throat difficult to visualize secondary tubes. CARDIOVASCULAR: Regular rate and rhythm. Systolic murmur noted left sternal border. RESPIRATORY/CHEST: Symmetric, unlabored respirations on mechanical event. Occasional course breath sounds. GASTROINTESTINAL: Abdomen soft, non-tender, nondistended. No guarding. Bowel sounds hypoactive. GENITOURINARY: Without palpable bladder distension. Jean-Baptiste catheter in place. MUSCULOSKELETAL: Extremities without clubbing, cyanosis, or edema. No mottling or clubbing. NEUROLOGICAL: Sedated. PSYCHIATRIC: sedated. Opens eyes. Calm. . (CAMRYN ZEE) Diagnostic Tests Laboratory Laboratory Tests Test 11/07/16 11/08/16 11/08/16 11/09/16 21:25 03:15 09:55 03:25 Potassium Level 2.8 MEQ/L 3.7 MEQ/L 3.4 MEQ/L 3.2 MEQ/L (3.5-5.1) (3.5-5.1) (3.5-5.1) (3.5-5.1) Phosphorus Level 1.5 MG/DL 2.5 MG/DL 1.8 MG/DL 1.4 MG/DL (2.5-4.9) (2.5-4.9) (2.5-4.9) (2.5-4.9) Magnesium Level 1.7 MG/DL 1.6 MG/DL 1.6 MG/DL 1.5 MG/DL (1.5-2.5) (1.5-2.5) (1.5-2.5) (1.5-2.5) White Blood Count 10.5 TH/MM3 8.0 TH/MM3 (4.0-11.0) (4.0-11.0) Red Blood Count 2.51 MIL/MM3 2.57 MIL/MM3 (4.00-5.30) (4.00-5.30) Hemoglobin 8.2 GM/DL 8.5 GM/DL (11.6-15.3) (11.6-15.3) Hematocrit 23.6 % 24.3 % (35.0-46.0) (35.0-46.0) Mean Corpuscular Volume 93.9 FL 94.5 FL (80.0-100.0) (80.0-100.0) Mean Corpuscular Hemoglobin 32.6 PG 33.1 PG (27.0-34.0) (27.0-34.0) Mean Corpuscular Hemoglobin 34.8 % 35.0 % Concent (32.0-36.0) (32.0-36.0) Red Cell Distribution Width 13.3 % 13.9 % (11.6-17.2) (11.6-17.2) Platelet Count 165 TH/MM3 175 TH/MM3 (150-450) (150-450) Mean Platelet Volume 8.0 FL 8.4 FL (7.0-11.0) (7.0-11.0) Sodium Level 143 MEQ/L 141 MEQ/L (136-145) (136-145) Chloride Level 109 MEQ/L 107 MEQ/L (98-107) (98-107) Carbon Dioxide Level 23.8 MEQ/L 25.0 MEQ/L (21.0-32.0) (21.0-32.0) Anion Gap 10 MEQ/L (5-15) 9 MEQ/L (5-15) Blood Urea Nitrogen 18 MG/DL (7-18) 17 MG/DL (7-18) Creatinine 0.35 MG/DL 0.23 MG/DL (0.50-1.00) (0.50-1.00) Estimat Glomerular Filtration 177 ML/MIN 287 ML/MIN Rate (>89) (>89) Random Glucose 100 MG/DL 126 MG/DL (74-106) (74-106) Calcium Level 7.9 MG/DL 8.3 MG/DL (8.5-10.1) (8.5-10.1) Test 11/09/16 11/09/16 11/09/16 11/10/16 09:00 16:32 18:50 04:00 Vancomycin Level Trough 6.2 MCG/ML (5.0-10.0) CSF Volume (Tube 1) 2.0 ML CSF Supernatant Color (tube 1) XANTHOCHROMIC (CLEAR) CSF Gross Blood (Tube 1) 2+ (0) CSF Volume (Tube 2) 1.5 ML CSF Supernatant Color (tube 2) XANTHOCHROMIC (CLEAR) CSF Gross Blood (Tube 2) 2+ (0) CSF Volume (Tube 3) 1.3 ML CSF Supernatant Color (tube 3) XANTHOCHROMIC (CLEAR) CSF Gross Blood (Tube 3) 2+ (0) CSF Volume (Tube 4) 1.0 ML CSF Supernatant Color (tube 4) XANTHOCHROMIC (CLEAR) CSF Gross Blood (Tube 4) 2+ (0) CSF WBC (Tube 4) 344 /MM3 (0-10) CSF RBC (Tube 4) 6147 /MM3 (NONE) CSF Neutrophils 82 % CSF Lymphocytes 6 % CSF Monocytes 10 % CSF Histiocytes 2 % CSF Glucose 46 MG/DL (40-80) CSF Total Protein 147.5 MG/DL (15.0-45.0) Potassium Level 3.3 MEQ/L 3.2 MEQ/L (3.5-5.1) (3.5-5.1) White Blood Count 8.5 TH/MM3 (4.0-11.0) Red Blood Count 2.53 MIL/MM3 (4.00-5.30) Hemoglobin 8.4 GM/DL (11.6-15.3) Hematocrit 23.7 % (35.0-46.0) Mean Corpuscular Volume 93.8 FL (80.0-100.0) Mean Corpuscular Hemoglobin 33.3 PG (27.0-34.0) Mean Corpuscular Hemoglobin 35.6 % Concent (32.0-36.0) Red Cell Distribution Width 13.5 % (11.6-17.2) Platelet Count 166 TH/MM3 (150-450) Mean Platelet Volume 8.6 FL (7.0-11.0) Sodium Level 136 MEQ/L (136-145) Chloride Level 102 MEQ/L (98-107) Carbon Dioxide Level 26.3 MEQ/L (21.0-32.0) Anion Gap 8 MEQ/L (5-15) Blood Urea Nitrogen 15 MG/DL (7-18) Creatinine 0.27 MG/DL (0.50-1.00) Estimat Glomerular Filtration 239 ML/MIN Rate (>89) Random Glucose 139 MG/DL (74-106) Calcium Level 7.8 MG/DL (8.5-10.1) Phosphorus Level 1.3 MG/DL (2.5-4.9) Magnesium Level 1.3 MG/DL (1.5-2.5) (CAMRYN ZEE) Result Diagram: 11/10/1639911/10/16399 Microbiology Microbiology Date/Time Procedure Status Source Growth 11/09/16 16:32 Gram Stain - Final Resulted Cerebral Spinal Fluid Lumbar Puncture 11/09/16 16:32 CSF Culture - Preliminary Resulted Cerebral Spinal Fluid Lumbar Puncture NO GROWTH IN 24 HOURS. 11/09/16 16:32 Acid Fast Stain Received Cerebral Spinal Fluid Lumbar Puncture Pending 11/09/16 16:32 Mycobacterial Culture Received Cerebral Spinal Fluid Lumbar Puncture Pending 11/09/16 16:32 Fungal Smear - Final Resulted Cerebral Spinal Fluid Lumbar Puncture NO FUNGAL ELEMENTS SEEN. 11/09/16 16:32 Fungal Culture Resulted Cerebral Spinal Fluid Lumbar Puncture Pending Imaging Last Impressions Chest X-Ray 11/09/16 0600 Signed Impressions: Service Date/Time: Wednesday, November 09, 2016 03:53 - CONCLUSION: Better aeration with bilateral parenchymal densities. Jacinto Blanco MD Lumbar Puncture Fluoroscopy 11/09/16 0000 Signed Impressions: Service Date/Time: Wednesday, November 09, 2016 16:21 - CONCLUSION: Uncomplicated lumbar drain placement as above. Naveed Rosenthal MD Lumbar Spine MRI 11/06/16 0000 Signed Impressions: Service Date/Time: Sunday, November 06, 2016 14:28 - CONCLUSION: 1. Postsurgical changes with a hematoma/seroma is noted in the posterior soft tissues just behind the spinal canal at the levels of L3-4 and L4-5. Abscess cannot be excluded. This postoperative finding measures 3.4 x 1.3 x 3.9 cm. Its creating an extra dural defect on the posterior aspect of the spinal canal. This along with broad-based bulging at L3-4 and L4-5 is causing moderate to prominent spinal canal stenosis. 2. There is primary bony degenerative changes of the lumbar spine with some disc space narrowing at L2-3 and L3-4. 3. Bilateral facet arthritis at multiple levels. Patrick Chavez MD Entire Spine MRI 11/06/16 0000 Signed Impressions: Service Date/Time: Sunday, November 06, 2016 14:28 - CONCLUSION: 1. As noted on the MRI lumbar spine there is a complex fluid collection in the soft tissues posterior to the spinal canal at the level of L4 measuring 3.4 x 3.1 x 3.9 cm suggestive of a postoperative hematoma/seroma. An abscess cannot be excluded. 2. Abnormal signal in the body of T2 suspicious for bony metastatic disease. 3. Status post fusion of C6-7. 4. Broad-based bulging with disc osteophyte complexes at C4-5 and C5-6. Possible myelopathy in the cord at this level. Patrick Chavez MD Lumbar Spine CT 11/05/16 0000 Signed Impressions: Service Date/Time: Saturday, November 05, 2016 04:14 - CONCLUSION: 1. Postop laminectomy at L4 level with fluid within the operative bed and a few scattered gas bubbles may be postsurgical change and possibly resolving hematoma, however abscess is not excluded. No definite signs of osteomyelitis. 2. Neural foramina compromise left L2-L3, bilateral L4-L5. 3. Bilateral masses compromise L5-S1. 4. Residual slight thecal sac stenosis may be present at L3-4 and L4-5. Deangelo Monsivais MD Head CT 11/05/16 0000 Signed Impressions: Service Date/Time: Saturday, November 05, 2016 16:08 - CONCLUSION: 1. No acute intracranial abnormality. Hussain Sandoval MD Abdomen/Pelvis CT 11/05/16 0000 Signed Impressions: Service Date/Time: Saturday, November 05, 2016 16:12 - CONCLUSION: 1. There is residual IV contrast within the kidneys and bladder. 2. There are no findings to indicate a bowel obstruction. 3. The patient is post hysterectomy. Hussain Sandoval MD Procedures * 11/07/16 - Intubation * 11/07/16: debridement lumbar wound dehiscence, evacuation lumbar epidural abscess, indirect repair pre-existing dural tear Dr. Melissa . (CAMRYN ZEE [facility]) Assessment and Plan Disease Oriented Problem List: (1) Spinal epidural abscess (2) Postoperative CSF leak (3) Postoperative wound dehiscence (4) Leukocytosis (5) Sepsis (6) Respiratory failure (7) Anemia (8) Nausea & vomiting (9) Hypokalemia (10) Dural tear (11) Weakness (12) Dehydration Symptom Scale: (1) Back pain 0-10 Scale: Unable to quantify (2) Nausea & vomiting 0-10 Scale: Unable to quantify (3) Weakness 0-10 Scale: Unable to quantify Pertinent Non-Medical Issues Psychosocial: . Spiritual: [employer]. Legal: patient currently incapacitated. No written advance directives. According to [place] statutes health care proxy decision-making falls to patient 's spouse. He is supported by their daughter Anna. Ethical issues impacting care: No known concerns at this time. . Important Contacts * Khari Leos, spouse: [phone] * Anna Poon daughter: [phone] . Prognosis In review of notes neurosurgery, mortuary operations manager and infectious disease feel it will be difficult to completely treat this infection due to chances of recurrence secondary to CSF leak. Neurosurgery, Dr. Melissa note indicates he advised the family "that it would be best to continue with the head of bed flat and intubation and sedation to keep her comfortable and avoid straining to allow the CSF leak to seal. She will be monitored closely for signs of recurrent infection or CSF leakage. However further MRI imaging may be problematic, as it will be difficult to determine if she has recurrent abscess versus blood clot formation which is been allowed to form and packing material which has been placed to try to seal the CSF leak." . Code Status: Full Code Plan * Decision Maker: patient currently incapacitated. No written advance directives. According to [place] statutes health care proxy decision-making falls to patient's spouse. He is supported by their daughter Anna. * FULL CODE family considering code status * 11/10/16 - Palliative care met with patient/ family: family seems to have good understanding of current medical problems, high risk for further setbacks or decline. All family desire FULL CODE and continued aggressive care. * SYMPTOMS: Pain: unable to quantify or qualify pain, pain secondary to epidural abscess, recent surgeries, bedbound status and history of chronic back pain. 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 Weakness: secondary to epidural abscess, infection, dural tear. Continue supine position at this time per neurosurgery recommendations. Dyspnea: currently sedated on mechanical ventilation. No new medication recommendations at this time. * Palliative care will continue to follow throughout hospital course to assist with symptom management and clarification of goals as needed. . (CAMRYN ZEE) Attestation To help prompt me to consider important information that might be impacting today's encounter and assessment, information from prior notes written by myself or my colleagues may have been "brought forward" into today's note. My signature on this note, however, is an attestation that I personally performed the exam, history, and/or decision-making noted today, and, unless otherwise indicated, the interactions with patient, family, and staff as well as the review of records all occurred today. I also attest that the listed assessment and stated plan reflect my best clinical judgment today based on the combination of historical information, prior notes, and today's exam/ interactions. When time spent is documented, it refers only to time spent today by the signer, or if indicated, combined time spent today by collaborating physician/nurse practitioner. (CAMRYN ZEE) Collaborating MD Comments . Chart reviewed. Cased discussed with palliative care CASH SPECIALIST. Above CASH SPECIALIST note reviewed and I concur. . (Manuel Fernandez MD) CAMRYN ZEE Nov 10, 2016 17:53 Manuel Fernandez MD December 27, 2016 15:05
--- NOTE | 2016-11-10 20:04 | EC ---
Study Study Date:11/10/2016 STUDY CONCLUSIONS SUMMARY - Left ventricle: The cavity size was normal. Systolic function was normal. The estimated ejection fraction was in the range of 60% to 65%. Although no diagnostic regional wall motion abnormality was identified, this possibility cannot be completely excluded on the basis of this study. Doppler parameters are consistent with abnormal left ventricular relaxation (grade 1 diastolic dysfunction). - Ventricular septum: The outflow septum had a sigmoid appearance. - Mitral valve: Moderately calcified annulus. Mild to moderate regurgitation. - Tricuspid valve: Mild regurgitation. - Pulmonary arteries: PA peak pressure: 39mm Hg (S). If LV function is below 40, please consider prescribing an ACEI or ARB or document rationale for non-use. PROCEDURE DATA STUDY STATUS: Elective. Procedure: Transthoracic echocardiography. Image quality was good. Scanning was performed from the parasternal, apical, and subcostal acoustic windows. Study completion: The patient tolerated the procedure well. Transthoracic echocardiography. M-mode, complete 2D, complete spectral Doppler, and color Doppler. Height: Height: 63in. Weight: Weight: 175.6lb. Body mass index: BMI: 31.2kg/m^2. Body surface area: BSA: 1.83m^2. Patient status: Inpatient. CARDIAC ANATOMY LEFT VENTRICLE: The cavity size was normal. There was no hypertrophy. Systolic function was normal. The estimated ejection fraction was in the range of 60% to 65%. Although no diagnostic regional wall motion abnormality was identified, this possibility cannot be completely excluded on the basis of this study. Doppler parameters are consistent with abnormal left ventricular relaxation (grade 1 diastolic dysfunction). AORTIC VALVE: The valve appears to be grossly normal. Doppler: There was no stenosis. No significant regurgitation. Valve area: 1.41cm^2(VTI). Indexed valve area: 0.77cm^2/m^2 (VTI). Valve area: 1.53cm^2 (Vmax). Indexed valve area: 0.84cm^2/m^2 (Vmax). Mean gradient: 4mm Hg (S). MITRAL VALVE: Moderately calcified annulus. Doppler: There was no evidence for stenosis. Mild to moderate regurgitation. Peak gradient: 4mm Hg (D). VENTRICULAR SEPTUM: The outflow septum had a sigmoid appearance. PULMONIC VALVE: Not well visualized. Doppler: There was no evidence for stenosis. Trace regurgitation. TRICUSPID VALVE: The valve appears to be grossly normal. Doppler: There was no evidence for stenosis. Mild regurgitation. PERICARDIUM: There was no pericardial effusion. Patient weight: 175.6lb _Ejection fraction:_ 65-75% _Fractional shortening:_ 32% up to 5Kg 5-11.5Kg 11.6-22.9Kg 23-45Kg 45-57Kg Aortic Root 7-13 <17 13-22 17-27 17-27 LA diam 6-13 <23 24-38 33-47 37-40 RVID 10-17 7-15 7-15 7-18 8-17 LVIDd 12-22 <32 24-38 33-47 37-40 LVPW 2-4 3-6 5-7 6-8 7-8 IVS 2-4 3-6 5-7 6-8 7-8 BASIC MEASUREMENTS ADULT NORMAL Left ventricle LV internal dimension, ED, chordal *37.9 mm 43-52 level, PLAX LV internal dimension, ES, chordal *21.6 mm 23-38 level, PLAX Fractional shortening, chordal level, 43 % >29 PLAX LV posterior wall thickness, ED 8.64 mm IVS/LVPW ratio, ED 1.01 <1.3 Ventricular septum Septal thickness, ED 8.71 mm Aortic valve Leaflet separation 18 mm 15-26 Aorta Root diameter, ED 29 mm Left atrium Anterior-posterior dimension 34 mm Anterior-posterior dimension index 1.86 cm/m^2 <2.2 BASIC MEASUREMENTS ADULT NORMAL Aortic valve Leaflet separation 18 mm 15-26 DOPPLER MEASUREMENTS ADULT NORMAL Main pulmonary artery Pressure, S *39 mm Hg =30 Aortic valve Peak velocity, S 145 cm/s Mean velocity, S 92.6 cm/s VTI, S 26.6 cm Mean gradient, S 4 mm Hg Valve area, VTI 1.41 cm^2 Valve area index, VTI 0.77 cm^2/m^2 Valve area, Vmax 1.53 cm^2 Valve area index, Vmax 0.84 cm^2/m^2 Mitral valve Peak E-wave velocity 106 cm/s Peak A-wave velocity 133 cm/s Deceleration time 208 ms 150-230 Peak gradient, D 4 mm Hg Peak E/A ratio 0.8 Tricuspid valve Regurgitant peak velocity 277 cm/s Peak RV-RA gradient, S 31 mm Hg Maximal regurgitant velocity 277 cm/s Systemic veins Estimated CVP 10 mm Hg Right ventricle RV pressure, S *41 mm Hg <30 Pulmonic valve Peak velocity, S 79 cm/s LEGEND: Mean values are shown as u=mean value. Asterisk (*) garcia values outside specified normal range. Prepared and signed by Gelacio Cannon [id number]
[2016-11-10] MEDS: CLINIMIX E 4.25/5 1000 mL- </= 42 mls/hr IV SCH ×3 (20:15)
[2016-11-10] MEDS: FAT EMULSION 20% INJ 250 ML (@10 mls/hr) IV SCH (20:15)
--- NOTE | 2016-11-10 21:07 | HHI.NSPN ---
History Chief Complaint: intubated and sedated Interval History 86-year-old female with history of lumbar laminectomy approximately 2 weeks ago in [place]. Patient presents to the emergency room on 11/05/16 with decreasing mental status, GI symptoms, and subsequent opening of the wound with wound dehiscence and purulent drainage. 11/07/16: Patient to surgery on an urgent basis for evacuation of epidural abscess , wound debridement. Patient found to have pre-existing dural tear with CSF leakage which could not be primarily repaired. Indirect repair of dural tear with blood clot, Gelfoam, thrombin, tissue glue and reclosure of wound site. 11/08/16: Patient remains intubated, sedated, head of bed flat. Dressing dry and intact 11/09/16: Patient remains intubated. Slight amount of drainage noted from incision. Lumbar subarachnoid drain placed per interventional radiology 11/10/16: Lumbar subarachnoid drain is not functioning well. Discussed with nursing staff Exam Results Vital Signs Date Time Temp Pulse Resp B/P Pulse Ox O2 Delivery O2 Flow Rate FiO2 11/10/16 19:31 100 30 11/10/16 18:00 90 11/10/16 16:00 98.3 20 137/65 154/64 11/07/16 16:00 Mechanical Ventilator 11/06/16 20:00 2.00 Intake and Output 11/09/16 11/09/16 11/10/16 08:00 16:00 00:00 Intake Total 820 ml 603 ml 342 ml Output Total 700 ml 850 ml 300 ml Balance 120 ml -247 ml 42 ml Physical Examination Patient is examined in the intensive care unit She is intubated and sedated. Moves all extremities to command Head of bed is flat Lumbar wound has mild to moderate clear drainage. Lumbar subarachnoid drain in place with no significant output. Lab, Micro, Other Results Last Impressions Chest X-Ray 11/09/16 0600 Signed Impressions: Service Date/Time: Wednesday, November 09, 2016 03:53 - CONCLUSION: Better aeration with bilateral parenchymal densities. Jacinto Blanco MD Lumbar Puncture Fluoroscopy 11/09/16 0000 Signed Impressions: Service Date/Time: Wednesday, November 09, 2016 16:21 - CONCLUSION: Uncomplicated lumbar drain placement as above. Naveed Rosenthal MD Lumbar Spine MRI 11/06/16 0000 Signed Impressions: Service Date/Time: Sunday, November 06, 2016 14:28 - CONCLUSION: 1. Postsurgical changes with a hematoma/seroma is noted in the posterior soft tissues just behind the spinal canal at the levels of L3-4 and L4-5. Abscess cannot be excluded. This postoperative finding measures 3.4 x 1.3 x 3.9 cm. Its creating an extra dural defect on the posterior aspect of the spinal canal. This along with broad-based bulging at L3-4 and L4-5 is causing moderate to prominent spinal canal stenosis. 2. There is primary bony degenerative changes of the lumbar spine with some disc space narrowing at L2-3 and L3-4. 3. Bilateral facet arthritis at multiple levels. Patrick Chavez MD Entire Spine MRI 11/06/16 Signed Impressions: Service Date/Time: Sunday, November 06, 2016 14:28 - CONCLUSION: 1. As noted on the MRI lumbar spine there is a complex fluid collection in the soft tissues posterior to the spinal canal at the level of L4 measuring 3.4 x 3.1 x 3.9 cm suggestive of a postoperative hematoma/seroma. An abscess cannot be excluded. 2. Abnormal signal in the body of T2 suspicious for bony metastatic disease. 3. Status post fusion of C6-7. 4. Broad-based bulging with disc osteophyte complexes at C4-5 and C5-6. Possible myelopathy in the cord at this level. Patrick Chavez MD Lumbar Spine CT 11/05/16 0000 Signed Impressions: Service Date/Time: Saturday, November 05, 2016 04:14 - CONCLUSION: 1. Postop laminectomy at L4 level with fluid within the operative bed and a few scattered gas bubbles may be postsurgical change and possibly resolving hematoma, however abscess is not excluded. No definite signs of osteomyelitis. 2. Neural foramina compromise left L2-L3, bilateral L4-L5. 3. Bilateral masses compromise L5-S1. 4. Residual slight thecal sac stenosis may be present at L3-4 and L4-5. Deangelo Monsivais MD Head CT 11/05/16 0000 Signed Impressions: Service Date/Time: Saturday, November 05, 2016 16:08 - CONCLUSION: 1. No acute intracranial abnormality. Hussain Sandoval MD Abdomen/Pelvis CT 11/05/16 0000 Signed Impressions: Service Date/Time: Saturday, November 05, 2016 16:12 - CONCLUSION: 1. There is residual IV contrast within the kidneys and bladder. 2. There are no findings to indicate a bowel obstruction. 3. The patient is post hysterectomy. Hussain Sandoval MD Medical Decision Making Impression and Plan Impression: Status post debridement lumbar wound dehiscence, evacuation epidural abscess, indirect closure of CSF leak and dural tear. Mild to moderate amount of drainage noted from the incision today. Poor drainage from the lumbar subarachnoid drain. Plan: Lumbar subarachnoid drain not draining well. Persistent drainage from the lumbar incision. Possible increased risk of meningitis with drain placement previously discussed with family. Continue head of bed flat Continue intubation, sedation, ventilatory support Antibiotics per infectious disease Anticipate necessary return to the operating room for further attempt at closure of the pre-existing dural tear and reculture to determine if any recurrent infection at the operative site. Continue lumbar subarachnoid drain in place at the present time. Pratik Melissa MD Nov 10, 2016 21:07
[2016-11-11] VITALS (18 sets, daily range): BP systolic 102–182; BP diastolic 47–80; PULSE 86–124; RESP 15–21; TEMP 97.8–98.7; O2SAT 95–100
[2016-11-11] MEDS: RESP: ALBUTEROL 2.5 MG/IPRATROPIUM 0.5 MG NEB (SCH) INH ×4 (03:11→19:50)
[2016-11-11] MEDS: CHLORHEXIDINE GLUCONATE 2 % 1 PACK (2 CLOTHS) TOP SCH (04:00)
--- NOTE | 2016-11-11 04:39 | RADRPT ---
EXAM DATE/TIME: 11/11/2016 02:46 [facility] COMPARISON: CHEST SINGLE AP, November 09, 2016, 3:53. INDICATIONS : Shortness of breath, possible pulmonary disease. MEDICAL HISTORY : Carcinoma, bone. SURGICAL HISTORY : Appendectomy. Hysterectomy. Tonsillectomy. ENCOUNTER: Subsequent ACUITY: 1 week PAIN SCORE: Non-responsive. LOCATION: Bilateral chest FINDINGS: A single view of the chest demonstrates patchy airspace disease throughout the left lung and minimal disease in the right upper lobe and right lower lobe. Heart normal in size. Endotracheal tube, nasoga stric tube and right-sided [id number] are stable in position. The cardiomediastinal contours are u nremarkable. Osseous structures are intact. CONCLUSION: 1. Worsening airspace disease in the left lung. Minimal densities in the right upper lobe and right l ower lobe. 2. Support lines and tubes as described above. Jacinto Blanco MD on November 11, 2016 at 4:36 Board Certified Radiologist. This report was verified electronically.
[2016-11-11] MEDS: FAMOTIDINE 20 MG/2 ML VIAL IV PUSH SCH ×2 (04:50→15:23)
[2016-11-11 05:23] LABS: HEMATOCRIT 26.5 % (35.0-46.0); MEAN CELL VOLUME 92.8 FL (80.0-100.0); MEAN CORPUSCULAR HEMOGLOBIN 32.9 PG (27.0-34.0); MEAN CORPUSCULAR HGB CONC 35.4 % (32.0-36.0); PLATELET COUNT 195 TH/MM3 (150-450); RED BLOOD COUNT 2.85 MIL/MM3 (4.00-5.30); REVIEW FLAG FINAL; WHITE BLOOD COUNT 8.3 TH/MM3 (4.0-11.0)
[2016-11-11] MEDS: INSULIN ASPART SUPPLEMENTAL SCALE SQ SCH ×4 (06:00→18:00)
[2016-11-11 06:02] LABS: MAGNESIUM 1.3 MG/DL (1.5-2.5); POTASSIUM 3.4 MEQ/L (3.5-5.1)
[2016-11-11] MEDS: POTASSIUM PHOSPHATE MONOBASIC 500 MG TAB PO PRN (06:21)
[2016-11-11] MEDS: HYDROmorphone HCL PF 1 MG/ML VIAL IV PUSH PRN ×5 (07:06→22:41)
--- NOTE | 2016-11-11 07:31 | HHI.PR ---
Subjective Remarks On ventilator sedated on diprivan . Appears comfortable Objective Vital Signs Date Time Temp Pulse Resp B/P Pulse Ox O2 Delivery O2 Flow Rate FiO2 11/11/16 06:00 97 11/11/16 04:02 100 30 11/11/16 04:00 98.6 98 21 169/77 100 157/75 11/11/16 04:00 98 11/11/16 04:00 30 11/11/16 02:00 95 11/11/16 01:01 100 30 11/11/16 00:00 98.7 91 18 165/77 100 156/78 11/11/16 00:00 91 11/11/16 00:00 30 11/10/16 22:19 100 30 11/10/16 22:00 87 11/10/16 20:00 30 11/10/16 20:00 92 11/10/16 20:00 99.0 92 18 173/80 100 176/74 11/10/16 19:31 100 30 11/10/16 18:00 90 11/10/16 16:00 98.3 85 20 137/65 100 154/64 11/10/16 16:00 85 11/10/16 16:00 30 11/10/16 15:34 100 30 11/10/16 14:00 91 11/10/16 12:00 30 11/10/16 12:00 98.5 86 18 158/73 100 130/73 11/10/16 12:00 87 11/10/16 11:37 100 30 11/10/16 10:00 88 11/10/16 08:00 91 11/10/16 08:00 30 11/10/16 08:00 98.2 91 15 170/80 100 177/71 11/10/16 07:47 100 30 I/O 11/10/16 11/10/16 11/10/16 11/11/16 11/11/16 11/11/16 07:00 15:00 23:00 07:00 15:00 23:00 Intake Total 890 ml 1007 ml 778 ml 552 ml Output Total 500 ml 600 ml 625 ml 365 ml Balance 390 ml 407 ml 153 ml 187 ml Intake IV Total 524 ml 495 ml 401 ml 137 ml TPN/PPN 296 ml 414 ml 304 ml 336 ml Lipid 70 ml 98 ml 73 ml 79 ml Output Urine Total 500 ml 600 ml 450 ml 300 ml Gastric Drainage Total 175 ml Drainage Total 0 ml 65 ml # Bowel Movements 0 0 0 0 Result Diagram: 11/11/16 0445 11/11/16 0445 Procedures evacuation of epidural abscess 11/07 had laminectomy 2 weeks ago Objective Remarks GENERAL: Sedated on ventilator SKIN: Warm and dry. Lumbar dressing on back HEAD: Normocephalic. EYES: No scleral icterus. No injection or drainage. NECK: Supple, trachea midline. No JVD or lymphadenopathy. CARDIOVASCULAR: Regular rate and rhythm without murmurs, gallops, or rubs. RESPIRATORY: Breath sounds equal bilaterally. No accessory muscle use. Intubated GASTROINTESTINAL: Abdomen soft, non-tender, nondistended. MUSCULOSKELETAL: No cyanosis. Generalized edema Medications and IVs Current Medications Medications (Trade) Dose Ordered Sig/Aleja Route Start Time Stop Time Status Last Admin (Vancomycin Consult Pharmacy) ml @ 0 mls/hr UNSCH OTHER 11/05/16 16:45 (Tylenol Supp) 650 mg Q4H PRN RECTAL 11/05/16 18:30 11/05/16 18:30 (NS Flush) 2 ml UNSCH PRN IV FLUSH 11/06/16 12:30 11/10/16 14:27 (NS Flush) 2 ml BID IV FLUSH 11/06/16 21:00 11/10/16 20:16 (Tylenol) 650 mg Q6H PRN PO 11/06/16 12:30 11/08/16 16:01 (Zofran Inj) 4 mg Q6H PRN IV 11/06/16 12:30 (Dulcolax Supp) 10 mg DAILY PRN RECTAL 11/06/16 12:30 Miscellaneous Information 1 Q361D XX 11/06/16 12:30 (Chlorhexidine 2% Cloth) 3 pack Taper DAILY@04 TOP 11/07/16 04:00 11/03/17 03:59 11/11/16 04:00 (Chlorhexidine 2% Cloth) 3 pack UNSCH PRN TOP 11/06/16 12:30 (D50w (Vial) Inj) 25 ml UNSCH PRN IV PUSH 11/06/16 14:15 Glucagon 1 mg 1 mg UNSCH PRN OTHER 11/06/16 14:15 (Diprivan 1000 Mg/100ml Inj) 100 ml @ 0 mls/hr TITRATE IV 11/07/16 03:45 11/10/16 12:58 (Peridex 0.12% Liq) 15 ml BID@08,20 MT 11/07/16 08:00 11/10/16 20:15 (D50w (Vial) Inj) 25 ml UNSCH PRN IV PUSH 11/07/16 04:15 (Glucagon Inj) 1 mg UNSCH PRN OTHER 11/07/16 04:15 Insulin Aspart 1 1 Q6H SQ 11/07/16 06:00 Potassium Chloride 100 ml @ 50 mls/hr Q2H PRN IV-CENTRAL 11/07/16 08:45 11/07/16 23:30 Potassium Chloride 100 ml @ 50 mls/hr Q2H PRN IV 11/07/16 08:45 Potassium Chloride 100 ml @ 25 mls/hr UNSCH PRN IV-CENTRAL 11/07/16 08:45 Potassium Chloride 100 ml @ 50 mls/hr Q2H PRN IV 11/07/16 08:45 (Magnesium Sulfate Inj/NS Inj) 100 ml @ 50 mls/hr UNSCH PRN IV 11/07/16 08:45 Magnesium Oxide 800 mg 800 mg UNSCH PRN PO 11/07/16 08:45 (Magnesium Sulfate Inj/NS Inj) 100 ml @ 50 mls/hr UNSCH PRN IV 11/07/16 08:45 11/07/16 10:25 Potassium Phosphate 2000 mg 2,000 mg Q4H PRN PO 11/07/16 08:45 11/11/16 06:21 (Sodium Phosphate Inj/NS 250 ml Inj) 250 ml @ 42 mls/hr UNSCH PRN IV 11/07/16 08:45 Potassium Phosphate 2000 mg 2,000 mg UNSCH PRN PO/TUBE 11/07/16 08:45 (Potassium Phosphate Inj/NS 250 ml Inj) 260 ml @ 42 mls/hr UNSCH PRN IV 11/07/16 08:45 11/10/16 06:09 (Pepcid Inj) 20 mg Q12H IV PUSH 11/07/16 16:00 11/11/16 04:50 Metoprolol Tartrate 2.5 mg 2.5 mg Q6H PRN IV PUSH 11/08/16 14:45 11/09/16 22:29 Multivitamins 10 ml/Folic Acid 1 mg/Amino Acids/ Electrolytes/ Dextrose 1,010.2 ml @ 42 mls/hr Q24H IV 11/08/16 20:00 11/10/16 20:15 (Liposyn Iii 20% Inj) 250 ml @ 10 mls/hr Q24H IV 11/08/16 20:00 11/10/16 20:15 Hydromorphone HCl 1 mg 1 mg Q2HR PRN IV PUSH 11/08/16 15:45 11/11/16 07:06 Sodium Chloride 1,000 ml @ 0 mls/hr Q0M IV 11/09/16 09:53 (Vancomycin Inj/ NS 250 ml Inj) 262.5 ml @ 250 mls/hr Q18H IV 11/10/16 03:00 11/10/16 20:16 Miscellaneous Information SPECIFIC LAB TO BE DRAWN:VANCOMYCIN TROUGH DATE TO... ONCE ONCE .XX 11/11/16 14:45 11/11/16 14:46 Potassium Phosphate 500 mg 500 mg DAILY PO 11/10/16 09:00 11/10/16 08:43 (Ancef Inj/NS Inj) 100 ml @ 200 mls/hr Q8HR IV 11/09/16 22:00 11/11/16 04:50 Assessment and Plan Problem List: (1) Spinal epidural abscess Status: Acute Plan: Patient to surgery on an urgent basis on the for evacuation of epidural abscess, wound debridement. Patient found to have pre-existing dural tear with CSF leakage which could not be primarily repaired. Indirect repair of dural tear with blood clot, Gelfoam, thrombin, tissue glue and reclosure of wound site. Dressing on site. Patient lying flat until Tuesday. Lumbar drain placed yesterday. Not draining. Palliative care consult ordered continue with aggressive care per family request. (2) Sepsis Status: Acute Plan: ID consulted and managing. Positive blood cultures for staph. On antibiotics. 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 On ventilator with Diprivan for sedation (4) Anemia Status: Acute Plan: HGB 8.5. Will monitor (5) Abnormal blood electrolyte level Status: Acute Plan: Potassium, phosphorus, aand magnesium low on replacement. Assessment and Plan Assessment and plan discussed with Dr. Kendrick. Palliative care following Dyaanara Barbour Nov 11, 2016 07:31
[2016-11-11] MEDS: POTASSIUM CHLOR 20 MEQ PREMIX 100 ML IV PRN (08:30)
[2016-11-11] MEDS: SODIUM CHLORIDE 0.9% FLUSH 10 ML FLUSH IV FLUSH PRN (08:31)
[2016-11-11] MEDS: POTASSIUM PHOSPHATE MONOBASIC 500 MG TAB PO SCH (08:31)
[2016-11-11] MEDS: SODIUM CHLORIDE 0.9% FLUSH 10 ML FLUSH IV FLUSH SCH ×2 (08:33→20:03)
[2016-11-11] MEDS: CHLORHEXIDINE 0.12% (ORAL KIT) 15 ML CUP MT SCH ×2 (08:33→20:03)
[2016-11-11] MEDS: PROPOFOL 1000 MG/100 ML INJ 100 ML IV SCH (08:38)
--- NOTE | 2016-11-11 12:17 | HHI.IDPN ---
Subjective Subjective Remarks is an 86 y/o CF with PMHx of endometrial cancer s/p chemotherapy 5 yrs back as well as surgery. Patient reportedly had recurrence with endometrial cancer involving multiple bones of the body. She underwent 2nd set of chemotherapy for metastatic endometrial cancer. Her [employer] oncologist is Dr.Kelly Marin. Patient has a port used for chemotherapy. Most recent PET scan as reported by daughter revealed multiple bony metastasis to include skull, and right upper arm. She underwent an L4-L5 laminectomy about 2 weeks ago [facility]. Prior to her surgery , the patient was extremely physically active without any ambulation difficulties. She did not have any bowel bladder issues. With this background patient presents to the ED with complains of nausea, vomiting, low back pain, and chills on 11/05/2016. She was doing well initially but over the past several days complained of increased nausea, vomiting, increased low back pain, and chills. Patient's daughter reports discharge from the surgical site beginning the day prior to admission. Upon discussion with RN , patient has been wetting her bed but not voiding. No bleeding. No incontinence of bowel although suspicious bladder overflow secondary to retention. Lumbar CT scan revealed postop laminectomy L4 with fluid and scattered bubbles possibly resolving hematoma, abscess could not be excluded. ID and Critical care medicine is consulted for patients noted sepsis, and progressive weakness bilateral lower extremities. Overnight events reviewed. No fever No rash No diarrhea Remains intubated. Not on pressors. Wiggles bilateral LE toes. Lumbar drain now draining. Antibiotics Ancef IV Vanco IV Lines Line sites with no e.o infection. Past Medical History reviewed. Allergies: Coded Allergies: Penicillin (Verified Allergy, Severe, Rash, 11/06/16) Rash 2 decades back. Objective . Vital Signs Date Time Temp Pulse Resp B/P Pulse Ox O2 Delivery O2 Flow Rate FiO2 11/11/16 11:44 97 30 11/11/16 10:00 91 11/11/16 08:54 98 30 11/11/16 08:32 15 11/11/16 08:00 30 11/11/16 08:00 93 11/11/16 08:00 98.4 93 15 114/56 95 102/47 11/11/16 06:00 97 11/11/16 04:02 100 30 11/11/16 04:00 98.6 98 21 169/77 100 157/75 11/11/16 04:00 98 11/11/16 04:00 30 11/11/16 02:00 95 11/11/16 01:01 100 30 11/11/16 00:00 98.7 91 18 165/77 100 156/78 11/11/16 00:00 91 11/11/16 00:00 30 11/10/16 22:19 100 30 11/10/16 22:00 87 11/10/16 20:00 30 11/10/16 20:00 92 11/10/16 20:00 99.0 92 18 173/80 100 176/74 11/10/16 19:31 100 30 11/10/16 18:00 90 11/10/16 16:00 98.3 85 20 137/65 100 154/64 11/10/16 16:00 85 11/10/16 16:00 30 11/10/16 15:34 100 30 11/10/16 14:00 91 11/10/16 11/10/16 11/11/16 15:00 23:00 07:00 Intake Total 1007 ml 778 ml 552 ml Output Total 600 ml 625 ml 365 ml Balance 407 ml 153 ml 187 ml Intake IV Total 495 ml 401 ml 137 ml TPN/PPN 414 ml 304 ml 336 ml Lipid 98 ml 73 ml 79 ml Output Urine Total 600 ml 450 ml 300 ml Gastric Drainage Total 175 ml Drainage Total 65 ml # Bowel Movements 0 0 0 . Laboratory Tests Test 11/10/16 11/11/16 04:00 04:45 White Blood Count 8.5 TH/MM3 8.3 TH/MM3 Red Blood Count 2.53 MIL/MM3 2.85 MIL/MM3 Hemoglobin 8.4 GM/DL 9.4 GM/DL Hematocrit 23.7 % 26.5 % Mean Corpuscular Volume 93.8 FL 92.8 FL Mean Corpuscular Hemoglobin 33.3 PG 32.9 PG Mean Corpuscular Hemoglobin 35.6 % 35.4 % Concent Red Cell Distribution Width 13.5 % 13.0 % Platelet Count 166 TH/MM3 195 TH/MM3 Mean Platelet Volume 8.6 FL 8.7 FL Laboratory Tests Test 11/09/16 11/10/16 11/11/16 18:50 04:00 04:45 Potassium Level 3.3 MEQ/L 3.2 MEQ/L 3.4 MEQ/L Sodium Level 136 MEQ/L 131 MEQ/L Chloride Level 102 MEQ/L 94 MEQ/L Carbon Dioxide Level 26.3 MEQ/L 29.0 MEQ/L Anion Gap 8 MEQ/L 8 MEQ/L Blood Urea Nitrogen 15 MG/DL 14 MG/DL Creatinine 0.27 MG/DL 0.27 MG/DL Estimat Glomerular Filtration 239 ML/MIN 239 ML/MIN Rate Random Glucose 139 MG/DL 144 MG/DL Calcium Level 7.8 MG/DL 7.9 MG/DL Phosphorus Level 1.3 MG/DL 1.7 MG/DL Magnesium Level 1.3 MG/DL 1.3 MG/DL Microbiology Date/Time Procedure Status Source Growth 11/09/16 16:32 Gram Stain - Final Resulted Cerebral Spinal Fluid Lumbar Puncture 11/09/16 16:32 CSF Culture - Preliminary Resulted Cerebral Spinal Fluid Lumbar Puncture NO GROWTH IN 48 HOURS. 11/09/16 16:32 Acid Fast Stain Received Cerebral Spinal Fluid Lumbar Puncture Pending 11/09/16 16:32 Mycobacterial Culture Received Cerebral Spinal Fluid Lumbar Puncture Pending 11/09/16 16:32 Fungal Smear - Final Resulted Cerebral Spinal Fluid Lumbar Puncture NO FUNGAL ELEMENTS SEEN. 11/09/16 16:32 Fungal Culture Resulted Cerebral Spinal Fluid Lumbar Puncture Pending Imaging Last Impressions Chest X-Ray 11/07/16 0600 Signed Impressions: Service Date/Time: Monday, November 07, 2016 04:40 - CONCLUSION: Bibasilar and left suprahilar areas of linear density likely related to atelectasis or mild consolidation. There is a possible bone lesion in the proximal right humerus. Naveed Michael MD Lumbar Spine MRI 11/06/16 0000 Signed Impressions: Service Date/Time: Sunday, November 06, 2016 14:28 - CONCLUSION: 1. Postsurgical changes with a hematoma/seroma is noted in the posterior soft tissues just behind the spinal canal at the levels of L3-4 and L4-5. Abscess cannot be excluded. This postoperative finding measures 3.4 x 1.3 x 3.9 cm. Its creating an extra dural defect on the posterior aspect of the spinal canal. This along with broad-based bulging at L3-4 and L4-5 is causing moderate to prominent spinal canal stenosis. 2. There is primary bony degenerative changes of the lumbar spine with some disc space narrowing at L2-3 and L3-4. 3. Bilateral facet arthritis at multiple levels. Patrick Chavez MD Entire Spine MRI 11/06/16 0000 Signed Impressions: Service Date/Time: Sunday, November 06, 2016 14:28 - CONCLUSION: 1. As noted on the MRI lumbar spine there is a complex fluid collection in the soft tissues posterior to the spinal canal at the level of L4 measuring 3.4 x 3.1 x 3.9 cm suggestive of a postoperative hematoma/seroma. An abscess cannot be excluded. 2. Abnormal signal in the body of T2 suspicious for bony metastatic disease. 3. Status post fusion of C6-7. 4. Broad-based bulging with disc osteophyte complexes at C4-5 and C5-6. Possible myelopathy in the cord at this level. Patrick Chavez MD Lumbar Spine CT 11/05/16 0000 Signed Impressions: Service Date/Time: Saturday, November 05, 2016 04:14 - CONCLUSION: 1. Postop laminectomy at L4 level with fluid within the operative bed and a few scattered gas bubbles may be postsurgical change and possibly resolving hematoma, however abscess is not excluded. No definite signs of osteomyelitis. 2. Neural foramina compromise left L2-L3, bilateral L4-L5. 3. Bilateral masses compromise L5-S1. 4. Residual slight thecal sac stenosis may be present at L3-4 and L4-5. Deangelo Monsivais MD Head CT 11/05/16 0000 Signed Impressions: Service Date/Time: Saturday, November 05, 2016 16:08 - CONCLUSION: 1. No acute intracranial abnormality. Hussain Sandoval MD Abdomen/Pelvis CT 11/05/16 0000 Signed Impressions: Service Date/Time: Saturday, November 05, 2016 16:12 - CONCLUSION: 1. There is residual IV contrast within the kidneys and bladder. 2. There are no findings to indicate a bowel obstruction. 3. The patient is post hysterectomy. Hussain Sandoval MD Physical Exam GENERAL: This is a well-nourished, well-developed patient, in no apparent distress. SKIN: No rashes, ecchymoses or lesions. Cool and dry. HEAD: Atraumatic. Normocephalic. No temporal or scalp tenderness. EYES: Pupils equal round and reactive. Extraocular motions intact. No scleral icterus. No injection or drainage. ENT: Nose without bleeding, purulent drainage or septal hematoma. NECK: Intubated CARDIOVASCULAR: RRR RESPIRATORY: Clear to auscultation. Breath sounds equal bilaterally. GASTROINTESTINAL: Abdomen soft, nondistended. Surgical site not examined. Patient in head down position. MUSCULOSKELETAL: Extremities without clubbing, cyanosis, or edema. No joint tenderness, effusion, or edema noted. No calf tenderness. Negative Homans sign bilaterally. NEUROLOGICAL: Opens eyes, wiggles bilateral toes. Psych: cooperative IV line sites with no e.o infection. Assessment & Plan Remarks Sepsis present on admission (fever, tachycardia, WBC elevation, Encephalopathy) Surgical site infection at Lumbar Laminectomy (Surgery done at [facility]) Gram positive bacteremia likely source Surgical Site infection. Staph epidermidis bacteremia. 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 Acute metabolic encephalopathy: sepsis, ? acute meningitis secondary to spine surgical site infection, epidural abscess Acute renal failure: prerenal, acute urinary retention. Endometrial cancer with mets to multiple bones. PCN allergy clarified. Aspiration risk. Hypoalbuminemia Recs: Continue Ancef IV Continue Vanco IV for now (target 15-20) Follow CSF drain cultures. Palliative care consult appreciated. RN informs me that is considering neurosurgery, currently being observed. Nichole Nina MD Nov 11, 2016 12:17
--- NOTE | 2016-11-11 13:43 | HHI.CCPN ---
Subjective Remarks/Hospital Course This 86 year-old woman who presents to the emergency department complaining of nausea vomiting, low back pain, and chills on 11/05/2016. She has a history of metastatic endometrial cancer diagnosed 5 years ago initially, as well as chronic back pain. The chronic back pain preceded the malignancy. Most recent PET scan as reported by daughter revealed multiple bony metastasis to include skull, and right upper arm. She underwent an [facility] [address] [facility] . Prior to her surgery , the patient was extremely physically active without any ambulation difficulties.She was doing well initially but over the past several days complained of increased nausea vomiting, increased low back pain, and chills. Upon admission incision has not had any drainage or bleeding,and she denied any urinary symptoms. The patient was admitted to [facility] on 11/05/2016, she subsequently has begun to have leukocytosis, urinary retention and noted drainage from lumbar laminectomy surgical site. Lumbar CT scan revealed postop laminectomy L4 with fluid and scattered bubbles possibly resolving hematoma, abscess could not be excluded. ID and Neurosurgery was consulted.Critical care medicine is consult that for patients noted sepsis, and progressive weakness bilateral lower extremities. Subjective: 11/07 Seen upon return from the OR following lumbar wound debridement and evacuation of epidural abscess by Dr. Melissa. Patient is to remain intubated per Dr. Melissa as she must be maintained with HOB flat due to dural leak (but rotate side to side q2 hours). At present she is not on continuous sedation, but is unresponsive to deep noxious stimuli upon return from general anesthesia. Reportedly large amount of respiratory secretions noted upon intubation by anesthesia. Routine airway per documentation. She received 1800 crystalloid intraoperatively. EBL 20 ml. 11/08: Afebrile. Patient remains on propofol infusion, moving bilateral upper and lower extremities wiggling toes and moving upper extremities. The patient was inadvertently placed on fentanyl infusion last night for purported pain. Fentanyl infusion discontinued, patient on when necessary pain medicine now currently following commands and denies pain. Leukocytosis resolved, the patient continues on Flagyl, Vancomycin and Ceptazidime per ID Dr. Nina. The patient remains flat in bed, supine position in order to begin nutrition PPN was initiated this a.m.. Extensive discussion with Dr. Melissa and Dr. Nina and palliative care consulted with planned discussion with family today. 11/09: Leukocytosis resolved. Wound culture was noted staph aureus. Patient was noted to have hypophosphatemia and hypomagnesemia ischemia which are being currently replaced. PPN was initiated for nutritional support secondary to put required positioning. Palliative care was consulted to discuss goals of care, currently aggressive treatment management continued per family request. 11/10: Afebrile .No acute events overnight. Patient underwent placement of CSF drain yesterday by interventional radiology. Patient's head of the bed to remain flat until Tuesday. The patient continues to have low phosphate and was placed on scheduled doses of phosphorus yesterday. Family requesting medication administration of vitamin C secondary to a small non-scientific research study that was published recently. Explained to family that it wasn't in evidence-based full research study performed but a small study without any level of evidence for implementation in the [place] at this time. Vitamin C is not indicated at this time. The family was educated by neurosurgery that the patient may have to possibly have surgery. 11/11 Tmax 99.0. The patient's CSF lumbar drain reevaluated by Dr. Melissa last evening, now draining fluid. No further drainage from surgical site. The patient remains in a supine position, PPN infusing for nutritional support. Her electrolytes continually being replaced per protocol. The patient remains on low-dose propofol infusion. Patient responsive following commands. Objective Vital Signs Date Time Temp Pulse Resp B/P Pulse Ox O2 Delivery O2 Flow Rate FiO2 11/11/16 13:03 15 11/11/16 12:00 97.9 97 162/78 97 127/80 11/11/16 12:00 30 11/07/16 16:00 Mechanical Ventilator Intake and Output 11/10/16 11/10/16 11/11/16 08:00 16:00 00:00 Intake Total 890 ml 1007 ml 778 ml Output Total 500 ml 600 ml 625 ml Balance 390 ml 407 ml 153 ml Result Diagram: 11/11/16 0445 11/11/16 0445 Imaging Last Impressions Chest X-Ray 11/05/16 0150 Signed Impressions: Service Date/Time: Saturday, November 05, 2016 01:56 - CONCLUSION: No acute cardiopulmonary disease. Deangelo Monsivais MD Lumbar Spine CT 11/05/16 0000 Signed Impressions: Service Date/Time: Saturday, November 05, 2016 04:14 - CONCLUSION: 1. Postop laminectomy at L4 level with fluid within the operative bed and a few scattered gas bubbles may be postsurgical change and possibly resolving hematoma, however abscess is not excluded. No definite signs of osteomyelitis. 2. Neural foramina compromise left L2-L3, bilateral L4-L5. 3. Bilateral masses compromise L5-S1. 4. Residual slight thecal sac stenosis may be present at L3-4 and L4-5. Deangelo Monsivais MD Head CT 11/05/16 0000 Signed Impressions: Service Date/Time: Saturday, November 05, 2016 16:08 - CONCLUSION: 1. No acute intracranial abnormality. Hussain Sandoval MD Abdomen/Pelvis CT 11/05/16 0000 Signed Impressions: Service Date/Time: Saturday, November 05, 2016 16:12 - CONCLUSION: 1. There is residual IV contrast within the kidneys and bladder. 2. There are no findings to indicate a bowel obstruction. 3. The patient is post hysterectomy. Hussain Sandoval MD Objective Remarks Drips: PPN 42cc/hr GENERAL: Elderly female who is orotracheally intubated and sedated SKIN: Warm and dry. HEAD: Atraumatic. Normocephalic. EYES: Pupils 2 mm bilaterally and sluggishly reactive. No scleral icterus. No injection or drainage. ENT: No nasal bleeding or discharge. NECK: Trachea midline. No JVD. CARDIOVASCULAR: Normal rate, regular rhythm. 2/6 systolic murmur left sternal border RESPIRATORY: No accessory muscle use. ET tube in place. Occasional coarse rhonchi. On mechanical ventilation ACV tidal volume 450/rate 15/PEEP 5/FiO2 35% GASTROINTESTINAL: Healed abdominal incision noted. Bowel sounds hypoactive. No tenderness appreciable : Jean-Baptiste in place with light yellow urine output. MUSCULOSKELETAL: Extremities without clubbing, cyanosis, 2+ peripheral edema bilateral upper extremity. No obvious deformities. NEUROLOGICAL: RASS 0. Opens eyes, follows commands with squeeze bilateral hands. Does move bilateral feet including plantar flexion with minimal extension. Urinary Catheter: Yes Jean-Baptiste insert reason: Measure Accurate Output Vascular Central Line Catheter: No A/P Assessment and Plan Plan by systems: Neurologic: Metabolic encephalopathy secondary to sepsis Lumbar epidural abscess Status post lumbar wound debridement and drainage epidural abscess 11/07/16 (Dr. Melissa) GCS 11T-responsive, following commands Neurochecks every 2 hour per ICU protocol 11/05 CT lumbar spine-postop laminectomy L4 with fluid and scattered bubbles possibly resolving hematoma. Abscess cannot be excluded. Neural foraminotomy not compromise left L2-3, L4-L5, residual thecal sac stenosis may be present L3 L4, L4-L5,B/L mass compromise L5-S1. MRI -post surgical changes with hematoma/seroma ? Abscess L3/L4 and L4/L5. 11/07-postop CSF leak, spinal epidural abscess, postoperative wound dehiscence, pre-existing dural tear with repair, status post debridement lumbar wound dehiscence, evacuation of lumbar abscess indirect repair of pre-existing dural tear Reportedly persistent dural leak noted intraoperatively. Patient is to remain head of bed down/supine per Dr. Melissa. 11/06-Ammonia level 10. EEG 11/06/16moderately slow background consistent with encephalopathy. No epileptiform features. Neurology following, Dr. Thomson NSG following, Dr. Melissa 11/09 IR CSF drain L1-L2 Respiratory: Acute respiratory failure Duo nebs every 6 hours scheduled ACV tidal line 450/rate 15/P5/FiO2 30%. Follow-up ABG as appropriate. Ventilator bundle Maintain head of bed flat per neurosurgery recommendations Cardiovascular: Maintain MAP > 65 mmHg Currently normotensive without vasopressor support FEN/RENAL Acute kidney injury Neurogenic bladder with urinary retention. Hypomagnesemia Hypophosphatemia Urinary retention noted upon Jean-Baptiste insertion. Jean-Baptiste to remain in place for accurate intake and output assessment. Monitor electrolytes and replace as indicated. IV Hep-Lock Electrolyte replacement per ICU protocol Scheduled doses of phosphorus GI: Moderate protein energy malnutrition PPN Patient position supine, unable to begin tube feeds. PPN initiated with lipid supplementation 11/[address] Hale, no GI issues identified. ID: Severe sepsis-resolved Leukocytosis-resolved Antibiotics per infectious disease, Dr. Anayeli Nina HEME: Metastatic Endometrial cancer s/p recent chemotherapy 10/06 Chronic anemia Monitor CBC Endocrine: Low-dose insulin sliding scale at bedside glucose every 6 hours. GI Prophylaxis Pepcid twice a day DVT Prophylaxis -- SCDs. Hold pharmacologic DVT prophylaxis until approved by neurosurgery, patient possibly may be returning to surgery. ACCESS: Port accessed right chest. Left radial art line placed in OR 11/07 day # 5 This patient remains critically ill with one or more organ systems which are or may become a threat to life. 33 minutes exclusive of separately billable procedures. The patient remains HOB flat per neurosurgery recommendations. Physician Juanita Hutchison MD Nov 11, 2016 13:43
[2016-11-11] MEDS ORDERED: FUROSEMIDE 20 MG/2 ML VIAL IV PUSH ONE (13:45)
[2016-11-11] MEDS ORDERED: PHARMACY ORDERED LAB ONE (14:45)
[2016-11-11] MEDS: VANCOMYCIN INJ 1,250 MG in SODIUM CHLOR 0.9% 250 ML INJ 250 ML IV SCH (15:23)
--- NOTE | 2016-11-11 16:05 | HHI.HCPN ---
Reason for visit a. To assist with evaluation and management of symptoms including: pain, weakness. b. To assist medical decision maker(s) with: better understanding of current medical conditions; weighing benefits/burdens of medical treatment options; making medical treatment decisions. . (CAMRYN ZEE) Subjective/Interval History Patient seen and examined in ICU. Spouse, daughter, granddaughter at bedside. Discussed with Dr. Anayeli Nina she indicates patient will need 12 weeks IV antibiotics (of course she will not be able to have chemo during this time) with oral suppression antibiotics after. Daughter reports lumbar drain started draining today. Patient was following commands prior to my visit, lethargic now due to recent pain medication per family. Remains sedated (low dose propofol) on mech vent, supine position. On PPN. No obvious signs of pain during my visit. She appears to be sleeping. Dr. Melissa notes indicate possible need for return to the operating room for further attempt at closure of the pre-existing dural tear and reculture to determine if any recurrent infection at the operative site. Continue lumbar subarachnoid drain in place at the present time. Afebrile. Continued labile blood pressures. Chest xray with worsening airspace disease in the left lung, minimal densities in the right upper lobe and right lower lobe. . Family/friend interactions Upon my arrival to the room, the daughter escorts me out to the hallway. She tells me asking her father (pt spouse) about CODE status on 11/10 upset him last night. He is considering code status, struggling as they never had a conversation about this. I apologized and explained I will not ask again unless clinical status changes significantly. 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 I explained we are doing everything we can. She is very optimistic today as drain is now draining. I offered continued support. She appreciates time spent. Palliative care will continue to follow. . (CAMRYN ZEE) Advance Directives Living Will: Never completed Health Care Surrogate: Never completed Durable Power of [employer] Preparation Worker: Never completed (CAMRYN ZEE) Advance Directive Specifics Health Care Surrogate(s): Patient is currently incapacitated to make her own health care decisions. According to [place] statutes health care proxy decision-making falls to the patient's spouse. He is supported by their daughter, Anna. . Significant change in goals: FULL CODE. Family desires continued aggressive care. . (CAMRYN ZEE) Objective Vital Signs Date Time Temp Pulse Resp B/P Pulse Ox O2 Delivery O2 Flow Rate FiO2 11/11/16 14:57 15 11/11/16 14:00 93 11/11/16 12:00 97.9 97 17 162/78 97 127/80 11/11/16 12:00 97 11/11/16 12:00 30 11/11/16 11:44 97 30 11/11/16 10:00 91 11/11/16 08:54 98 30 11/11/16 08:00 30 11/11/16 08:00 93 11/11/16 08:00 98.4 93 15 114/56 95 102/47 11/11/16 06:00 97 11/11/16 04:02 100 30 11/11/16 04:00 98.6 98 21 169/77 100 157/75 11/11/16 04:00 98 11/11/16 04:00 30 11/11/16 02:00 95 11/11/16 01:01 100 30 11/11/16 00:00 98.7 91 18 165/77 100 156/78 11/11/16 00:00 91 11/11/16 00:00 30 11/10/16 22:19 100 30 11/10/16 22:00 87 11/10/16 20:00 30 11/10/16 20:00 92 11/10/16 20:00 99.0 92 18 173/80 100 176/74 11/10/16 19:31 100 30 11/10/16 18:00 90 11/10/16 16:00 98.3 85 20 137/65 100 154/64 11/10/16 16:00 85 11/10/16 16:00 30 Intake & Output 11/11/16 11/11/16 07:00 19:00 Intake Total 1330 ml 1074 ml Output Total 990 ml 2500 ml Balance 340 ml -1426 ml Intake IV Total 538 ml 500 ml TPN/PPN 640 ml 367 ml Lipid 152 ml 87 ml Tube Irrigant 120 ml Output Urine Total 750 ml 2325 ml Gastric Drainage Total 175 ml 10 ml Drainage Total 65 ml 165 ml # Bowel Movements 0 0 Physical Exam CONSTITUTIONAL/GENERAL: This is critically ill patient, sedated on mechanical ventilation. TUBES/LINES/DRAINS: ETT, OG, right chest port, PIV, Jean-Baptiste, bilateral soft wrist restraints, SCD's. Lumbar subarachnoid drain. SKIN: No jaundice, rashes, or lesions. Ecchymoses on upper extremities. No wounds seen anteriorly. Skin temperature appropriate. Not diaphoretic. EYES: eyes closed. CARDIOVASCULAR: Regular rate and rhythm. Systolic murmur noted left sternal border. RESPIRATORY/CHEST: Symmetric, unlabored respirations on mechanical vent. Occasional course breath sounds. GASTROINTESTINAL: Abdomen soft, non-tender, nondistended. No guarding. Bowel sounds hypoactive. GENITOURINARY: Without palpable bladder distension. Jean-Baptiste catheter in place. MUSCULOSKELETAL: Extremities with edema. No mottling or clubbing. NEUROLOGICAL: Sedated, appears to be sleeping. PSYCHIATRIC: sedated. . (CAMRYN ZEE) Diagnostic Tests Laboratory Laboratory Tests Test 11/09/16 11/09/16 11/09/16 11/09/16 03:25 09:00 16:32 18:50 White Blood Count 8.0 TH/MM3 (4.0-11.0) Red Blood Count 2.57 MIL/MM3 (4.00-5.30) Hemoglobin 8.5 GM/DL (11.6-15.3) Hematocrit 24.3 % (35.0-46.0) Mean Corpuscular Volume 94.5 FL (80.0-100.0) Mean Corpuscular Hemoglobin 33.1 PG (27.0-34.0) Mean Corpuscular Hemoglobin 35.0 % Concent (32.0-36.0) Red Cell Distribution Width 13.9 % (11.6-17.2) Platelet Count 175 TH/MM3 (150-450) Mean Platelet Volume 8.4 FL (7.0-11.0) Sodium Level 141 MEQ/L (136-145) Potassium Level 3.2 MEQ/L 3.3 MEQ/L (3.5-5.1) (3.5-5.1) Chloride Level 107 MEQ/L (98-107) Carbon Dioxide Level 25.0 MEQ/L (21.0-32.0) Anion Gap 9 MEQ/L (5-15) Blood Urea Nitrogen 17 MG/DL (7-18) Creatinine 0.23 MG/DL (0.50-1.00) Estimat Glomerular Filtration 287 ML/MIN Rate (>89) Random Glucose 126 MG/DL (74-106) Calcium Level 8.3 MG/DL (8.5-10.1) Phosphorus Level 1.4 MG/DL (2.5-4.9) Magnesium Level 1.5 MG/DL (1.5-2.5) Vancomycin Level Trough 6.2 MCG/ML (5.0-10.0) CSF Volume (Tube 1) 2.0 ML CSF Supernatant Color (tube 1) XANTHOCHROMIC (CLEAR) CSF Gross Blood (Tube 1) 2+ (0) CSF Volume (Tube 2) 1.5 ML CSF Supernatant Color (tube 2) XANTHOCHROMIC (CLEAR) CSF Gross Blood (Tube 2) 2+ (0) CSF Volume (Tube 3) 1.3 ML CSF Supernatant Color (tube 3) XANTHOCHROMIC (CLEAR) CSF Gross Blood (Tube 3) 2+ (0) CSF Volume (Tube 4) 1.0 ML CSF Supernatant Color (tube 4) XANTHOCHROMIC (CLEAR) CSF Gross Blood (Tube 4) 2+ (0) CSF WBC (Tube 4) 344 /MM3 (0-10) CSF RBC (Tube 4) 6147 /MM3 (NONE) CSF Neutrophils 82 % CSF Lymphocytes 6 % CSF Monocytes 10 % CSF Histiocytes 2 % CSF Glucose 46 MG/DL (40-80) CSF Total Protein 147.5 MG/DL (15.0-45.0) Test 11/10/16 11/11/16 11/11/16 04:00 04:45 14:05 White Blood Count 8.5 TH/MM3 8.3 TH/MM3 (4.0-11.0) (4.0-11.0) Red Blood Count 2.53 MIL/MM3 2.85 MIL/MM3 (4.00-5.30) (4.00-5.30) Hemoglobin 8.4 GM/DL 9.4 GM/DL (11.6-15.3) (11.6-15.3) Hematocrit 23.7 % 26.5 % (35.0-46.0) (35.0-46.0) Mean Corpuscular Volume 93.8 FL 92.8 FL (80.0-100.0) (80.0-100.0) Mean Corpuscular Hemoglobin 33.3 PG 32.9 PG (27.0-34.0) (27.0-34.0) Mean Corpuscular Hemoglobin 35.6 % 35.4 % Concent (32.0-36.0) (32.0-36.0) Red Cell Distribution Width 13.5 % 13.0 % (11.6-17.2) (11.6-17.2) Platelet Count 166 TH/MM3 195 TH/MM3 (150-450) (150-450) Mean Platelet Volume 8.6 FL 8.7 FL (7.0-11.0) (7.0-11.0) Sodium Level 136 MEQ/L 131 MEQ/L (136-145) (136-145) Potassium Level 3.2 MEQ/L 3.4 MEQ/L 3.9 MEQ/L (3.5-5.1) (3.5-5.1) (3.5-5.1) Chloride Level 102 MEQ/L 94 MEQ/L (98-107) (98-107) Carbon Dioxide Level 26.3 MEQ/L 29.0 MEQ/L (21.0-32.0) (21.0-32.0) Anion Gap 8 MEQ/L (5-15) 8 MEQ/L (5-15) Blood Urea Nitrogen 15 MG/DL (7-18) 14 MG/DL (7-18) Creatinine 0.27 MG/DL 0.27 MG/DL (0.50-1.00) (0.50-1.00) Estimat Glomerular Filtration 239 ML/MIN 239 ML/MIN Rate (>89) (>89) Random Glucose 139 MG/DL 144 MG/DL (74-106) (74-106) Calcium Level 7.8 MG/DL 7.9 MG/DL (8.5-10.1) (8.5-10.1) Phosphorus Level 1.3 MG/DL 1.7 MG/DL (2.5-4.9) (2.5-4.9) Magnesium Level 1.3 MG/DL 1.3 MG/DL (1.5-2.5) (1.5-2.5) Vancomycin Level Trough 9.6 MCG/ML (5.0-10.0) (CAMRYN ZEE) Result Diagram: 11/11/16 0445 11/11/16 1405 Microbiology Microbiology Date/Time Procedure Status Source Growth 11/09/16 16:32 Gram Stain - Final Resulted Cerebral Spinal Fluid Lumbar Puncture 11/09/16 16:32 CSF Culture - Preliminary Resulted Cerebral Spinal Fluid Lumbar Puncture NO GROWTH IN 48 HOURS. 11/09/16 16:32 Acid Fast Stain - Final Resulted Cerebral Spinal Fluid Lumbar Puncture NO ACID FAST BACILLI SEEN 11/09/16 16:32 Mycobacterial Culture Resulted Cerebral Spinal Fluid Lumbar Puncture Pending 11/09/16 16:32 Fungal Smear - Final Resulted Cerebral Spinal Fluid Lumbar Puncture NO FUNGAL ELEMENTS SEEN. 11/09/16 16:32 Fungal Culture Resulted Cerebral Spinal Fluid Lumbar Puncture Pending . Imaging Last Impressions Chest X-Ray 11/11/16 0600 Signed Impressions: Service Date/Time: October 02:46 - CONCLUSION: 1. Worsening airspace disease in the left lung. Minimal densities in the right upper lobe and right lower lobe. 2. Support lines and tubes as described above. Jacinto Blanco MD Lumbar Puncture Fluoroscopy 11/09/16 0000 Signed Impressions: Service Date/Time: Wednesday, November 09, 2016 16:21 - CONCLUSION: Uncomplicated lumbar drain placement as above. Naveed Rosenthal MD Lumbar Spine MRI 11/06/16 0000 Signed Impressions: Service Date/Time: Sunday, November 06, 2016 14:28 - CONCLUSION: 1. Postsurgical changes with a hematoma/seroma is noted in the posterior soft tissues just behind the spinal canal at the levels of L3-4 and L4-5. Abscess cannot be excluded. This postoperative finding measures 3.4 x 1.3 x 3.9 cm. Its creating an extra dural defect on the posterior aspect of the spinal canal. This along with broad-based bulging at L3-4 and L4-5 is causing moderate to prominent spinal canal stenosis. 2. There is primary bony degenerative changes of the lumbar spine with some disc space narrowing at L2-3 and L3-4. 3. Bilateral facet arthritis at multiple levels. Patrick Chavez MD Entire Spine MRI 11/06/16 0000 Signed Impressions: Service Date/Time: Sunday, November 06, 2016 14:28 - CONCLUSION: 1. As noted on the MRI lumbar spine there is a complex fluid collection in the soft tissues posterior to the spinal canal at the level of L4 measuring 3.4 x 3.1 x 3.9 cm suggestive of a postoperative hematoma/seroma. An abscess cannot be excluded. 2. Abnormal signal in the body of T2 suspicious for bony metastatic disease. 3. Status post fusion of C6-7. 4. Broad-based bulging with disc osteophyte complexes at C4-5 and C5-6. Possible myelopathy in the cord at this level. Patrick Chavez MD Lumbar Spine CT 11/05/16 0000 Signed Impressions: Service Date/Time: Saturday, November 05, 2016 04:14 - CONCLUSION: 1. Postop laminectomy at L4 level with fluid within the operative bed and a few scattered gas bubbles may be postsurgical change and possibly resolving hematoma, however abscess is not excluded. No definite signs of osteomyelitis. 2. Neural foramina compromise left L2-L3, bilateral L4-L5. 3. Bilateral masses compromise L5-S1. 4. Residual slight thecal sac stenosis may be present at L3-4 and L4-5. Deangelo Monsivais MD Head CT 11/05/16 0000 Signed Impressions: Service Date/Time: Saturday, November 05, 2016 16:08 - CONCLUSION: 1. No acute intracranial abnormality. Hussain Sandoval MD Abdomen/Pelvis CT 11/05/16 0000 Signed Impressions: Service Date/Time: Saturday, November 05, 2016 16:12 - CONCLUSION: 1. There is residual IV contrast within the kidneys and bladder. 2. There are no findings to indicate a bowel obstruction. 3. The patient is post hysterectomy. Hussain Sandoval MD . Procedures * 11/07/16 - Intubation * 11/07/16: debridement lumbar wound dehiscence, evacuation lumbar epidural abscess, indirect repair pre-existing dural tear Dr. Melissa . (CAMRYN ZEE) Assessment and Plan Disease Oriented Problem List: (1) Spinal epidural abscess (2) Postoperative CSF leak (3) Postoperative wound dehiscence (4) Leukocytosis (5) Sepsis (6) Respiratory failure (7) Anemia (8) Nausea & vomiting (9) Hypokalemia (10) Dural tear (11) Weakness (12) Dehydration Symptom Scale: (1) Back pain 0-10 Scale: Unable to quantify (2) Weakness 0-10 Scale: Unable to quantify Pertinent Non-Medical Issues Psychosocial: . Spiritual: Spiritism clif. Legal: patient currently incapacitated. No written advance directives. According to [place] statutes health care proxy decision-making falls to patient 's spouse. He is supported by their daughter Anna. Ethical issues impacting care: No known concerns at this time. . Important Contacts * Khari Leos, spouse: [phone] * Anna Poon, daughter: [phone] . Prognosis In review of notes neurosurgery, vice president research and infectious disease feel it will be difficult to completely treat this infection due to chances of recurrence secondary to CSF leak. Neurosurgery, Dr. Melissa note indicates he advised the family "that it would be best to continue with the head of bed flat and intubation and sedation to keep her comfortable and avoid straining to allow the CSF leak to seal. She will be monitored closely for signs of recurrent infection or CSF leakage. However further MRI imaging may be problematic, as it will be difficult to determine if she has recurrent abscess versus blood clot formation which is been allowed to form and packing material which has been placed to try to seal the CSF leak." . Code Status: Full Code Plan * Decision Maker: patient currently incapacitated. No written advance directives. According to [facility] health care proxy decision-making falls to patient's spouse. He is supported by their daughter Anna. * FULL CODE * 11/11/16 -Upon my arrival to the room, the daughter escorts me out to the hallway. She tells me asking her father (pt spouse) about CODE status on 11/10 upset him last night. He is considering code status, struggling as they never had a conversation about this. I apologized and explained I will not ask again unless clinical status changes significantly. 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 I explained we are doing everything we can including FULL CODE. She is very optimistic today as drain is now draining. I offered continued support. She appreciates time spent. Palliative care will continue to follow. * SYMPTOMS: Pain: unable to quantify or qualify pain, pain secondary to epidural abscess, recent surgeries, bedbound status and history of chronic back pain. 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 Weakness: secondary to epidural abscess, infection, dural tear. Continue supine position at this time per neurosurgery recommendations. Dyspnea: currently sedated on mechanical ventilation. No new medication recommendations at this time. * Palliative care will continue to follow throughout hospital course to assist with symptom management and clarification of goals as needed. . (CAMRYN ZEE) Time Spent Total Floor Time (mins): 35 Face to Face Time (mins): 25 >50% Counseling/Coord of Care: Yes (CAMRYN ZEE) Attestation To help prompt me to consider important information that might be impacting today's encounter and assessment, information from prior notes written by myself or my colleagues may have been "brought forward" into today's note. My signature on this note, however, is an attestation that I personally performed the exam, history, and/or decision-making noted today, and, unless otherwise indicated, the interactions with patient, family, and staff as well as the review of records all occurred today. I also attest that the listed assessment and stated plan reflect my best clinical judgment today based on the combination of historical information, prior notes, and today's exam/ interactions. When time spent is documented, it refers only to time spent today by the signer, or if indicated, combined time spent today by collaborating physician/nurse practitioner. . (CAMRYN ZEE) Collaborating MD Comments . Chart reviewed. Cased discussed with palliative care IRON GUARDRAIL INSTALLER. Above IRON GUARDRAIL INSTALLER note reviewed and I concur. . (Manuel Fernandez MD) CAMRYN ZEE Nov 11, 2016 16:05 Manuel Fernandez MD December 27, 2016 15:11
[2016-11-11] MEDS ORDERED: VANCOMYCIN 1,500 MG/NS 500 ML IV SCH ×2 (18:00)
[2016-11-11] MEDS: CLINIMIX E 4.25/5 1000 mL- </= 42 mls/hr IV SCH ×3 (20:02)
[2016-11-11] MEDS: FAT EMULSION 20% INJ 250 ML (@10 mls/hr) IV SCH (20:02)
--- NOTE | 2016-11-11 22:19 | HHI.NSPN ---
History Chief Complaint: intubated and sedated Interval History 86-year-old female with history of lumbar laminectomy approximately 2 weeks ago in [place]. Patient presents to the emergency room on 11/05/16 with decreasing mental status, GI symptoms, and subsequent opening of the wound with wound dehiscence and purulent drainage. 11/07/16: Patient to surgery on an urgent basis for evacuation of epidural abscess , wound debridement. Patient found to have pre-existing dural tear with CSF leakage which could not be primarily repaired. Indirect repair of dural tear with blood clot, Gelfoam, thrombin, tissue glue and reclosure of wound site. 11/08/16: Patient remains intubated, sedated, head of bed flat. Dressing dry and intact 11/09/16: Patient remains intubated. Slight amount of drainage noted from incision. Lumbar subarachnoid drain placed per interventional radiology 11/10/16: Lumbar subarachnoid drain is not functioning well. Discussed with nursing staff 11/11/16: Intermittent drainage from subarachnoid drain. Wound and dressing dry and the morning. Exam Results Vital Signs Date Time Temp Pulse Resp B/P Pulse Ox O2 Delivery O2 Flow Rate FiO2 11/11/16 20:08 96 30 11/11/16 18:00 90 11/11/16 16:00 97.8 15 130/62 142/56 11/07/16 16:00 Mechanical Ventilator Intake and Output 11/10/16 11/10/16 11/11/16 08:00 16:00 00:00 Intake Total 890 ml 1007 ml 778 ml Output Total 500 ml 600 ml 625 ml Balance 390 ml 407 ml 153 ml Physical Examination Patient is examined in the intensive care unit She is intubated and sedated. Moves all extremities intermittent spontaneous Head of bed is flat Lumbar wound and dressing are dry Lumbar subarachnoid drain in place with moderate output-yellow to thierry color Lab, Micro, Other Results Laboratory Tests Test 11/11/16 11/11/16 04:45 14:05 White Blood Count 8.3 TH/MM3 Red Blood Count 2.85 MIL/MM3 Hemoglobin 9.4 GM/DL Hematocrit 26.5 % Mean Corpuscular Volume 92.8 FL Mean Corpuscular Hemoglobin 32.9 PG Mean Corpuscular Hemoglobin 35.4 % Concent Red Cell Distribution Width 13.0 % Platelet Count 195 TH/MM3 Mean Platelet Volume 8.7 FL Sodium Level 131 MEQ/L Potassium Level 3.4 MEQ/L 3.9 MEQ/L Chloride Level 94 MEQ/L Carbon Dioxide Level 29.0 MEQ/L Anion Gap 8 MEQ/L Blood Urea Nitrogen 14 MG/DL Creatinine 0.27 MG/DL Estimat Glomerular Filtration 239 ML/MIN Rate Random Glucose 144 MG/DL Calcium Level 7.9 MG/DL Phosphorus Level 1.7 MG/DL Magnesium Level 1.3 MG/DL Vancomycin Level Trough 9.6 MCG/ML Medical Decision Making Impression and Plan Impression: Status post debridement lumbar wound dehiscence, evacuation epidural abscess, indirect closure of CSF leak and dural tear. Incision and dressing are dry this morning Plan: Lumbar drain was intermittent output. Possible increased risk of meningitis with drain placement previously discussed with family. Continue head of bed flat Continue intubation, sedation, ventilatory support Antibiotics per infectious disease Continue to monitor wound/dressing and subarachnoid drain closely. Pratik Melissa MD Nov 11, 2016 22:19
[2016-11-12] VITALS (19 sets, daily range): BP systolic 139–183; BP diastolic 60–88; PULSE 82–116; RESP 15–20; TEMP 97.7–98.8; O2SAT 98–100
[2016-11-12] MEDS: HYDROmorphone HCL PF 1 MG/ML VIAL IV PUSH PRN ×6 (03:51→19:58)
[2016-11-12] MEDS: RESP: ALBUTEROL 2.5 MG/IPRATROPIUM 0.5 MG NEB (SCH) INH ×4 (03:52→19:50)
[2016-11-12] MEDS: CHLORHEXIDINE GLUCONATE 2 % 1 PACK (2 CLOTHS) TOP SCH (04:00)
[2016-11-12 04:46] LABS: BICARBONATE 28.1 MEQ/L (21.0-32.0); MAGNESIUM 1.5 MG/DL (1.5-2.5); POTASSIUM 3.8 MEQ/L (3.5-5.1)
[2016-11-12] MEDS: FAMOTIDINE 20 MG/2 ML VIAL IV PUSH SCH ×2 (05:08→17:04)
[2016-11-12] MEDS: METOPROLOL TARTRATE 5 MG/5 ML VIAL IV PUSH PRN (05:08)
[2016-11-12] MEDS: INSULIN ASPART SUPPLEMENTAL SCALE SQ SCH ×5 (05:14→23:58)
[2016-11-12] MEDS ORDERED: VANCOMYCIN 1,500 MG/NS 500 ML IV SCH ×2 (06:00)
[2016-11-12] MEDS: POTASSIUM PHOSPHATE MONOBASIC 500 MG TAB PO SCH (08:41)
[2016-11-12] MEDS: MAGNESIUM SULFATE INJ 2 GM in SODIUM CHLORIDE 0.9% INJ 96 ML IV PRN (08:42)
[2016-11-12] MEDS: SODIUM CHLORIDE 0.9% FLUSH 10 ML FLUSH IV FLUSH SCH ×2 (08:42→19:58)
[2016-11-12] MEDS: POTASSIUM PHOSPHATE MONOBASIC 500 MG TAB PO PRN (08:42)
[2016-11-12] MEDS: CHLORHEXIDINE 0.12% (ORAL KIT) 15 ML CUP MT SCH ×2 (08:43→19:18)
--- NOTE | 2016-11-12 10:54 | HHI.PR ---
Subjective Remarks On ventilator sedated on diprivan . Opening eyes to command Objective Vital Signs Date Time Temp Pulse Resp B/P Pulse Ox O2 Delivery O2 Flow Rate FiO2 11/12/16 09:23 15 11/12/16 08:00 98.0 86 15 149/80 100 178/73 11/12/16 08:00 30 11/12/16 08:00 86 11/12/16 07:55 100 30 11/12/16 06:00 82 11/12/16 04:00 101 11/12/16 04:00 98.4 101 20 155/72 100 139/60 11/12/16 04:00 30 11/12/16 03:46 100 30 11/12/16 02:00 104 11/12/16 00:00 98.3 116 15 171/82 100 171/75 11/12/16 00:00 30 11/12/16 00:00 99 30 11/12/16 00:00 116 11/11/16 22:00 108 11/11/16 20:08 96 30 11/11/16 20:00 98.4 124 17 182/80 95 170/72 11/11/16 20:00 30 11/11/16 20:00 124 11/11/16 18:00 90 11/11/16 16:00 97.8 86 15 130/62 100 142/56 11/11/16 16:00 30 11/11/16 16:00 86 11/11/16 15:45 100 30 11/11/16 14:00 93 11/11/16 12:00 97.9 97 17 162/78 97 127/80 11/11/16 12:00 97 11/11/16 12:00 30 11/11/16 11:44 97 30 I/O 11/11/16 11/11/16 11/11/16 11/12/16 11/12/16 11/12/16 07:00 15:00 23:00 07:00 15:00 23:00 Intake Total 552 ml 1074 ml 687 ml 597 ml Output Total 365 ml 2500 ml 1260 ml 360 ml Balance 187 ml -1426 ml -573 ml 237 ml Intake IV Total 137 ml 500 ml 290 ml 210 ml TPN/PPN 336 ml 367 ml 321 ml 313 ml Lipid 79 ml 87 ml 76 ml 74 ml Tube Irrigant 120 ml Output Urine Total 300 ml 2325 ml 1200 ml 300 ml Gastric Drainage Total 10 ml Drainage Total 65 ml 165 ml 60 ml 60 ml # Bowel Movements 0 0 0 Result Diagram: 11/11/16 0445 11/12/16 0400 Procedures evacuation of epidural abscess 4 had laminectomy 2 weeks ago Objective Remarks GENERAL: Sedated on ventilator SKIN: Warm and dry. Lumbar dressing on back HEAD: Normocephalic. EYES: No scleral icterus. No injection or drainage. NECK: Supple, trachea midline. No JVD or lymphadenopathy. CARDIOVASCULAR: Regular rate and rhythm without murmurs, gallops, or rubs. RESPIRATORY: Breath sounds equal bilaterally. No accessory muscle use. Intubated GASTROINTESTINAL: Abdomen soft, non-tender, nondistended. MUSCULOSKELETAL: No cyanosis. Generalized edema Medications and IVs Current Medications Medications (Trade) Dose Ordered Sig/Aleja Route Start Time Stop Time Status Last Admin (Tylenol Supp) 650 mg Q4H PRN RECTAL 11/05/16 18:30 11/05/16 18:30 (NS Flush) 2 ml UNSCH PRN IV FLUSH 11/06/16 12:30 11/11/16 08:31 (NS Flush) 2 ml BID IV FLUSH 11/06/16 21:00 11/12/16 08:42 (Tylenol) 650 mg Q6H PRN PO 11/06/16 12:30 11/08/16 16:01 (Zofran Inj) 4 mg Q6H PRN IV 11/06/16 12:30 (Dulcolax Supp) 10 mg DAILY PRN RECTAL 11/06/16 12:30 Miscellaneous Information 1 Q361D XX 11/06/16 12:30 (Chlorhexidine 2% Cloth) Taper DAILY@04 TOP 11/07/16 04:00 11/03/17 03:59 11/12/16 04:00 Chlorhexidine Gluconate 3 pack 3 pack UNSCH PRN TOP 11/06/16 12:30 (Diprivan 1000 Mg/100ml Inj) 100 ml @ 0 mls/hr TITRATE IV 11/07/16 03:45 11/11/16 08:38 (Peridex 0.12% Liq) 15 ml BID@08,20 MT 11/07/16 08:00 11/12/16 08:43 (D50w (Vial) Inj) 25 ml UNSCH PRN IV PUSH 11/07/16 04:15 (Glucagon Inj) 1 mg UNSCH PRN OTHER 11/07/16 04:15 Insulin Aspart 1 1 Q6H SQ 11/07/16 06:00 Potassium Chloride 100 ml @ 50 mls/hr Q2H PRN IV-CENTRAL 11/07/16 08:45 11/07/16 23:30 Potassium Chloride 100 ml @ 50 mls/hr Q2H PRN IV 11/07/16 08:45 Potassium Chloride 100 ml @ 25 mls/hr UNSCH PRN IV-CENTRAL 11/07/16 08:45 Potassium Chloride 100 ml @ 50 mls/hr Q2H PRN IV 11/07/16 08:45 11/11/16 08:30 (Magnesium Sulfate Inj/NS Inj) 100 ml @ 50 mls/hr UNSCH PRN IV 11/07/16 08:45 Magnesium Oxide 800 mg 800 mg UNSCH PRN PO 11/07/16 08:45 11/11/16 08:31 (Magnesium Sulfate Inj/NS Inj) 100 ml @ 50 mls/hr UNSCH PRN IV 11/07/16 08:45 11/12/16 08:42 Potassium Phosphate 2000 mg 2,000 mg Q4H PRN PO 11/07/16 08:45 11/12/16 08:42 (Sodium Phosphate Inj/NS 250 ml Inj) 250 ml @ 42 mls/hr UNSCH PRN IV 11/07/16 08:45 Potassium Phosphate 2000 mg 2,000 mg UNSCH PRN PO/TUBE 11/07/16 08:45 (Potassium Phosphate Inj/NS 250 ml Inj) 260 ml @ 42 mls/hr UNSCH PRN IV 11/07/16 08:45 11/10/16 06:09 (Pepcid Inj) 20 mg Q12H IV PUSH 11/07/16 16:00 11/12/16 05:08 Metoprolol Tartrate 2.5 mg 2.5 mg Q6H PRN IV PUSH 11/08/16 14:45 11/12/16 05:08 Multivitamins 10 ml/Folic Acid 1 mg/Amino Acids/ Electrolytes/ Dextrose 1,010.2 ml @ 42 mls/hr Q24H IV 11/08/16 20:00 11/11/16 20:02 (Liposyn Iii 20% Inj) 250 ml @ 10 mls/hr Q24H IV 11/08/16 20:00 11/11/16 20:02 Hydromorphone HCl 1 mg 1 mg Q2HR PRN IV PUSH 11/08/16 15:45 11/12/16 08:41 (1/2 NS 1000 ml Inj) 1,000 ml @ 0 mls/hr Q0M IV 11/09/16 09:53 Potassium Phosphate 500 mg 500 mg DAILY PO 11/10/16 09:00 11/12/16 08:41 (Ancef Inj/NS Inj) 100 ml @ 200 mls/hr Q8HR IV 11/09/16 22:00 11/12/16 05:09 Miscellaneous Information SPECIFIC LAB TO BE DRAWN:VANCOMYIN TROUGH DATE TO... ONCE ONCE .XX 11/14/16 11:45 11/14/16 11:46 Assessment and Plan Problem List: (1) Spinal epidural abscess Status: Acute Plan: Patient to surgery on an urgent basis on the for evacuation of epidural abscess, wound debridement. Patient found to have pre-existing dural tear with CSF leakage which could not be primarily repaired. Indirect repair of dural tear with blood clot, Gelfoam, thrombin, tissue glue and reclosure of wound site. Dressing on site. Lumbar drain place draining Palliative care consult ordered continue with aggressive care per family request. (2) Sepsis Status: Acute Plan: ID consulted and managing. Positive blood cultures for staph. On antibiotics. 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 On ventilator with Diprivan for sedation (4) Anemia Status: Acute Plan: HGB stable monitoring (5) Abnormal blood electrolyte level Status: Acute Plan: Phos low on replacement protocol Assessment and Plan Assessment and plan discussed with Dr. Kendrick. Palliative care following Dayanara Barbour Nov 12, 2016 10:54
[2016-11-12] MEDS ORDERED: GADODIAMIDE PF 287 MG/ML 20 ML VIAL (for RAD MRI) IV ONE (12:50)
--- NOTE | 2016-11-12 12:58 | RADRPT ---
EXAM DATE/TIME: 11/12/2016 11:46 [facility] COMPARISON: CT BRAIN W/O CONTRAST, November 05, 2016, 16:08. INDICATIONS : Altered mental status. MEDICAL HISTORY : Uterine ca. SURGICAL HISTORY : Fusion, cervical. Hysterectomy. Fusion, lumbar. ENCOUNTER: Subsequent ACUITY: 4-6 days PAIN SCORE: 0/10 LOCATION: head TECHNIQUE: Multiplanar, multisequence MRI of the brain was performed without contrast. FINDINGS: CEREBRUM: There is generalized atrophy. Ventricles are normal in size given the degree of atrophy present. Ther e is abnormal signal layering dependently in the occipital horns bilaterally. Increased flair signal in the left temporal lobe is associated with mild T2 shine through on the diffusion sequence. There i s mild susceptibility artifact in this area on the gradient echo sequence. No evidence of midline rina ft, mass lesion, or acute infarction. No extraaxial fluid collections are seen. The pituitary gland and suprasellar cistern are normal in configuration. WHITE MATTER: There is moderate severity periventricular and subcortical white matter signal change. POSTERIOR FOSSA: The cerebellum and brainstem demonstrate no acute finding. The 4th ventricle is midline. The cerebel lopontine angle is unremarkable. The cerebellar tonsils are normal in position. DIFFUSION IMAGING: No focal areas of restricted diffusion are seen. No evidence of acute infarction. EXTRACRANIAL: There is fluid within the mastoid air cells bilaterally and within the paranasal sinuses. There is sc alp edema. CONCLUSION: 1. There are no findings to indicate acute infarct. 2. Abnormal signal layering within the occipital horns bilaterally likely representing a small amount of blood products. This finding is new compared to the prior CT. 3. Chronic changes include generalized atrophy and periventricular white matter change characteristic of chronic microvascular ischemia. Naveed Smith MD on November 12, 2016 at 12:51 Board Certified Radiologist. This report was verified electronically.
--- NOTE | 2016-11-12 13:28 | RADRPT ---
EXAM DATE/TIME: 11/12/2016 11:46 [facility] COMPARISON: MRI LUMBAR SPINE W & W/O CONTRAST, November 06, 2016, 14:28. INDICATIONS : Abscess. CONTRAST: 15 cc Omniscan (gadodiamide) IV MEDICAL HISTORY : Uterine ca. SURGICAL HISTORY : Fusion, cervical. Fusion, lumbar. ENCOUNTER: Subsequent ACUITY: 4-6 days PAIN SCORE: Nonresponsive. LOCATION: back TECHNIQUE: Multiplanar multisequence MRI of the lumbar spine was performed with and without contrast. FINDINGS: The most caudal appearing lumbar vertebra is numbered as L5. There is stable diffuse disc desiccation , multilevel osteophyte formation. Mild disc space narrowing is noted. The conus is unremarkable. The re is a large inhomogeneous predominantly T2 hyperintense, T1 hypointense fluid collection posterior to L4 in this patient who is status post laminectomy at the L4 level. Following contrast administrati on there is marked enhancement of the soft tissues surrounding the complex fluid collection at the op erative site. There is muscular edema. There is mild rim enhancement. T12-L1: The thecal sac has a normal diameter. No evidence of disc bulge or protrusion. The neural foramina are patent bilaterally. L1-L2: The thecal sac has a normal diameter. No evidence of disc bulge or protrusion. The neural foramina are patent bilaterally. L2-L3: Mild diffuse disc bulge and mild facet and ligamentum flavum hypertrophy identified with mild canal n arrowing. No foraminal narrowing. L3-L4: A diffuse disc bulge is present and moderate facet hypertrophy. There is moderate bilateral foraminal stenosis and mild mass effect on the right L3 exiting nerve. There is severe canal stenosis posterio r to the L4 level at L3-4 through L5 secondary to anterior bulging of the dura secondary to the compl ex fluid collection. This results in mass effect on the nerve roots within thecal sac. On sagittal T2 image 7 this collection extends 6.6 cm in subpleural dimension. On axial image 13 of series 16 the c ollection measures 4.5 cm in transverse dimension and 5.1 cm in AP dimension. L4-L5: Severe stenosis secondary to a diffuse disc bulge and the large complex fluid collection demonstratin g mass effect on the thecal sac resulting in mass effect on the nerve roots of the cauda equina and s evere stenosis. Mild abutment of the left L4 exiting nerve. Moderate left foraminal narrowing. L5-S1: Minimal diffuse disc bulge abuts the L5 nerves but does not displace them. Moderate facet and ligamen milla flavum hypertrophy. CONCLUSION: 1. Complex fluid collection appears slightly increased in sagittal dimension with rim enhancement and marked surrounding edema and enhancement of the paraspinal soft tissues. This is consistent with the clinical history of abscess. 2. There is severe associated spinal stenosis secondary to mass effect from the fluid collection. Jesús Anderson MD on November 12, 2016 at 13:19 Board Certified Radiologist. This report was verified electronically.
--- NOTE | 2016-11-12 13:59 | RADRPT ---
EXAM DATE/TIME: 11/12/2016 11:46 This report includes an Addendum and supersedes previous reports for this exam. [facility] COMPARISON: MRI THORACIC SPINE W & W/O CONTRAST, November 12, 2016, 11:46. INDICATIONS : Abscess. CONTRAST: 15 cc Omniscan (gadodiamide) IV MEDICAL HISTORY : Uterine ca. SURGICAL HISTORY : Fusion, cervical. Fusion, lumbar. ENCOUNTER: Subsequent ACUITY: 4-6 days PAIN SCORE: Nonresponsive. LOCATION: c-spine TECHNIQUE: Multiplanar, multisequence MRI examination of the cervical spine was performed. FINDINGS: There is straightening of the cervical lordosis and grade 1 anterolisthesis of C3 on C4. Diffuse disc desiccation. Moderate disc space narrowing at C5-6 is noted with anterior osteophyte formation at C4 and C5 present. There is a T1 hypointense, enhancing lesion with T2 hyperintensity noted at the leve l of the T2 vertebral body. There is previous intervertebral fusion across the C6-7 disc space. Moder ate facet hypertrophic changes are seen. There is no evidence for abscess in the cervical spine. Ther e is abnormal decreased T1 and increased T2 signal and enhancement involving the right C7 pedicle and transverse process. C2-C3: Moderate left foraminal stenosis. No canal stenosis. C3-C4: Severe left foraminal stenosis secondary to facet and uncovertebral hypertrophy. Tiny left central di sc protrusion. C4-C5: Diffuse disc osteophyte complex with superimposed central disc protrusion and mild canal stenosis. Un covertebral hypertrophy and mild bilateral foraminal narrowing. Mild abutment of the cord. C5-C6: There is severe canal stenosis and mild cord compression noted. This is secondary to a diffuse disc o steophyte complex. Uncovertebral hypertrophy and severe bilateral foraminal narrowing. C6-C7: The thecal sac has a normal configuration. There is no evidence of disc herniation or spinal canal s tenosis. The neural foramina are patent bilaterally. C7-T1: The thecal sac has a normal configuration. There is no evidence of disc herniation or spinal canal s tenosis. The neural foramina are patent bilaterally. CONCLUSION: 1. No evidence for abscess. 2. Nonspecific enhancing lesion of the T2 vertebral body, as well as diffuse decreased T1 signal invo lving the C7 pedicle and transverse process. The possibility of metastatic disease should be excluded . 3. Severe canal stenosis with cord compression at C5-6 and moderate canal stenosis at C4-5. Jesús Anderson MD on November 12, 2016 at 13:52 Board Certified Radiologist. This report was verified electronically. ADDENDUM: There is extensive subcutaneous edema of the cervical and upper thoracic subcutaneous tissues posteri claudette. Jesús Anderson MD on November 12, 2016 at 14:08 Board Certified Radiologist. This report was verified electronically.
--- NOTE | 2016-11-12 14:00 | HHI.IDPN ---
Subjective Subjective Remarks is an 86 y/o CF with PMHx of endometrial cancer s/p chemotherapy 5 yrs back as well as surgery. Patient reportedly had recurrence with endometrial cancer involving multiple bones of the body. She underwent 2nd set of chemotherapy for metastatic endometrial cancer. Her [employer] oncologist is Dr.Kelly Marin. Patient has a port used for chemotherapy. Most recent PET scan as reported by daughter revealed multiple bony metastasis to include skull, and right upper arm. She underwent an L[facility]-L5 [facility]. Prior to her surgery , the patient was extremely physically active without any ambulation difficulties. She did not have any bowel bladder issues. With this background patient presents to the ED with complains of nausea, vomiting, low back pain, and chills on 11/05/2016. She was doing well initially but over the past several days complained of increased nausea, vomiting, increased low back pain, and chills. Patient's daughter reports discharge from the surgical site beginning the day prior to admission. Upon discussion with RN , patient has been wetting her bed but not voiding. No bleeding. No incontinence of bowel although suspicious bladder overflow secondary to retention. Lumbar CT scan revealed postop laminectomy L4 with fluid and scattered bubbles possibly resolving hematoma, abscess could not be excluded. ID and Critical care medicine is consulted for patients noted sepsis, and progressive weakness bilateral lower extremities. Overnight events reviewed. No fever No rash No diarrhea Remains intubated. Not on pressors. Wiggles bilateral LE toes. Had an MRI spine results pending. Antibiotics Ancef IV Lines Line sites with no e.o infection. Past Medical History reviewed. Allergies: Coded Allergies: Penicillin (Verified Allergy, Severe, Rash, 11/06/16) Rash 2 decades back. Objective . Vital Signs Date Time Temp Pulse Resp B/P Pulse Ox O2 Delivery O2 Flow Rate FiO2 11/12/16 13:39 98 30 11/12/16 12:00 82 11/12/16 12:00 98.8 82 15 139/67 100 162/65 11/12/16 12:00 30 11/12/16 10:00 84 11/12/16 09:23 15 11/12/16 08:00 98.0 86 15 149/80 100 178/73 11/12/16 08:00 30 11/12/16 08:00 86 4/14/17 07:55 100 30 11/12/16 06:00 82 11/12/16 04:00 101 11/12/16 04:00 98.4 101 20 155/72 100 139/60 11/12/16 04:00 30 11/12/16 03:46 100 30 11/12/16 02:00 104 11/12/16 00:00 98.3 116 15 171/82 100 171/75 11/12/16 00:00 30 11/12/16 00:00 99 30 11/12/16 00:00 116 11/11/16 22:00 108 11/11/16 20:08 96 30 11/11/16 20:00 98.4 124 17 182/80 95 170/72 11/11/16 20:00 30 11/11/16 20:00 124 11/11/16 18:00 90 11/11/16 16:00 97.8 86 15 130/62 100 142/56 11/11/16 16:00 30 11/11/16 16:00 86 11/11/16 15:45 100 30 11/11/16 14:00 93 11/11/16 11/11/16 11/12/16 15:00 23:00 07:00 Intake Total 1074 ml 687 ml 597 ml Output Total 2500 ml 1260 ml 360 ml Balance -1426 ml -573 ml 237 ml Intake IV Total 500 ml 290 ml 210 ml TPN/PPN 367 ml 321 ml 313 ml Lipid 87 ml 76 ml 74 ml Tube Irrigant 120 ml Output Urine Total 2325 ml 1200 ml 300 ml Gastric Drainage Total 10 ml Drainage Total 165 ml 60 ml 60 ml # Bowel Movements 0 0 . Laboratory Tests Test 11/11/16 04:45 White Blood Count 8.3 TH/MM3 Red Blood Count 2.85 MIL/MM3 Hemoglobin 9.4 GM/DL Hematocrit 26.5 % Mean Corpuscular Volume 92.8 FL Mean Corpuscular Hemoglobin 32.9 PG Mean Corpuscular Hemoglobin 35.4 % Concent Red Cell Distribution Width 13.0 % Platelet Count 195 TH/MM3 Mean Platelet Volume 8.7 FL Laboratory Tests Test 11/11/16 11/11/16 11/12/16 04:45 14:05 04:00 Sodium Level 131 MEQ/L 133 MEQ/L Potassium Level 3.4 MEQ/L 3.9 MEQ/L 3.8 MEQ/L Chloride Level 94 MEQ/L 97 MEQ/L Carbon Dioxide Level 29.0 MEQ/L 28.1 MEQ/L Anion Gap 8 MEQ/L 8 MEQ/L Blood Urea Nitrogen 14 MG/DL 18 MG/DL Creatinine 0.27 MG/DL 0.30 MG/DL Estimat Glomerular Filtration 239 ML/MIN 211 ML/MIN Rate Random Glucose 144 MG/DL 137 MG/DL Calcium Level 7.9 MG/DL 8.1 MG/DL Phosphorus Level 1.7 MG/DL 2.1 MG/DL Magnesium Level 1.3 MG/DL 1.5 MG/DL Microbiology Date/Time Procedure Status Source Growth 11/09/16 16:32 Gram Stain - Final Complete Cerebral Spinal Fluid Lumbar Puncture 11/09/16 16:32 CSF Culture - Final Complete Cerebral Spinal Fluid Lumbar Puncture NO GROWTH IN 72 HOURS 11/09/16 16:32 Acid Fast Stain - Final Resulted Cerebral Spinal Fluid Lumbar Puncture NO ACID FAST BACILLI SEEN 11/09/16 16:32 Mycobacterial Culture Resulted Cerebral Spinal Fluid Lumbar Puncture Pending 11/09/16 16:32 Fungal Smear - Final Resulted Cerebral Spinal Fluid Lumbar Puncture NO FUNGAL ELEMENTS SEEN. 11/09/16 16:32 Fungal Culture Resulted Cerebral Spinal Fluid Lumbar Puncture Pending Imaging Last Impressions Chest X-Ray 11/07/16 0600 Signed Impressions: Service Date/Time: Monday, November 07, 2016 04:40 - CONCLUSION: Bibasilar and left suprahilar areas of linear density likely related to atelectasis or mild consolidation. There is a possible bone lesion in the proximal right humerus. Naveed Michael MD Lumbar Spine MRI 11/06/16 0000 Signed Impressions: Service Date/Time: Sunday, November 06, 2016 14:28 - CONCLUSION: 1. Postsurgical changes with a hematoma/seroma is noted in the posterior soft tissues just behind the spinal canal at the levels of L3-4 and L4-5. Abscess cannot be excluded. This postoperative finding measures 3.4 x 1.3 x 3.9 cm. Its creating an extra dural defect on the posterior aspect of the spinal canal. This along with broad-based bulging at L3-4 and L4-5 is causing moderate to prominent spinal canal stenosis. 2. There is primary bony degenerative changes of the lumbar spine with some disc space narrowing at L2-3 and L3-4. 3. Bilateral facet arthritis at multiple levels. Patrick Chavez MD Entire Spine MRI 11/06/16 0000 Signed Impressions: Service Date/Time: Sunday, November 06, 2016 14:28 - CONCLUSION: 1. As noted on the MRI lumbar spine there is a complex fluid collection in the soft tissues posterior to the spinal canal at the level of L4 measuring 3.4 x 3.1 x 3.9 cm suggestive of a postoperative hematoma/seroma. An abscess cannot be excluded. 2. Abnormal signal in the body of T2 suspicious for bony metastatic disease. 3. Status post fusion of C6-7. 4. Broad-based bulging with disc osteophyte complexes at C4-5 and C5-6. Possible myelopathy in the cord at this level. Patrick Chavez MD Lumbar Spine CT 11/05/16 0000 Signed Impressions: Service Date/Time: Saturday, November 05, 2016 04:14 - CONCLUSION: 1. Postop laminectomy at L4 level with fluid within the operative bed and a few scattered gas bubbles may be postsurgical change and possibly resolving hematoma, however abscess is not excluded. No definite signs of osteomyelitis. 2. Neural foramina compromise left L2-L3, bilateral L4-L5. 3. Bilateral masses compromise L5-S1. 4. Residual slight thecal sac stenosis may be present at L3-4 and L4-5. Deangelo Monsivais MD Head CT 11/05/16 0000 Signed Impressions: Service Date/Time: Saturday, November 05, 2016 16:08 - CONCLUSION: 1. No acute intracranial abnormality. Hussain Sandoval MD Abdomen/Pelvis CT 11/05/16 0000 Signed Impressions: Service Date/Time: Saturday, November 05, 2016 16:12 - CONCLUSION: 1. There is residual IV contrast within the kidneys and bladder. 2. There are no findings to indicate a bowel obstruction. 3. The patient is post hysterectomy. Hussain Sandoval MD Physical Exam GENERAL: This is a well-nourished, well-developed patient, in no apparent distress. SKIN: No rashes, ecchymoses or lesions. Cool and dry. HEAD: Atraumatic. Normocephalic. No temporal or scalp tenderness. EYES: Pupils equal round and reactive. Extraocular motions intact. No scleral icterus. No injection or drainage. ENT: Nose without bleeding, purulent drainage or septal hematoma. NECK: Intubated CARDIOVASCULAR: RRR RESPIRATORY: Clear to auscultation. Breath sounds equal bilaterally. GASTROINTESTINAL: Abdomen soft, nondistended. Surgical site not examined. Patient in head down position. MUSCULOSKELETAL: Extremities without clubbing, cyanosis, or edema. No joint tenderness, effusion, or edema noted. No calf tenderness. Negative Homans sign bilaterally. NEUROLOGICAL: Opens eyes, wiggles bilateral toes. Psych: cooperative IV line sites with no e.o infection. Assessment & Plan Remarks Sepsis present on admission (fever, tachycardia, WBC elevation, Encephalopathy) Surgical site infection at Lumbar Laminectomy (Surgery done at [facility]) Staph epidermidis bacteremia: likely contaminant as it was not present on admission and is not persistent. 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 Acute metabolic encephalopathy: sepsis, ? acute meningitis secondary to spine surgical site infection, epidural abscess Acute renal failure: prerenal, acute urinary retention. Endometrial cancer with mets to multiple bones. PCN allergy clarified. Aspiration risk. Hypoalbuminemia Recs: Continue Ancef IV DC Vanco IV Follow CSF drain cultures. Follow MRI spine results. May need more surgery depending on MRI results. Nichole Nina MD Nov 12, 2016 14:00
--- NOTE | 2016-11-12 14:09 | RADRPT ---
EXAM DATE/TIME: 11/12/2016 11:46 [place] COMPARISON: MRI LUMBAR SPINE W & W/O CONTRAST, November 12, 2016, 11:46. MRI CERVICAL SPINE W & W/O CONTRAST, November 12, 2016, 11:46. INDICATIONS : Abscess. CONTRAST: 15 cc Omniscan (gadodiamide) IV MEDICAL HISTORY : Uterine ca. SURGICAL HISTORY : Fusion, cervical. Fusion, lumbar. ENCOUNTER: Subsequent ACUITY: 4-6 days PAIN SCORE: Nonresponsive. LOCATION: t-spine TECHNIQUE: Multiplanar multisequence MRI of the thoracic spine was performed. FINDINGS: Alignment is normal. There is diffuse disc desiccation. There is a concerning lesion of the T2 verteb ral body which is hypointense on T1-weighted images, hyperintense on T2 and enhances. There is also p atchy enhancement of T5 posterior inferiorly which demonstrates decreased T1 signal and increased T2 signal. There are no acute fractures. There is prominent subcutaneous edema seen posterior upper thor acic region, and bilateral pleural effusions. The spinal cord is normal in appearance. Conus unremark able. There is no evidence for abscess. Mild multilevel osteophyte formation. T1-T2: Normal. T2-T3: The thecal sac has a normal diameter. No evidence of disc bulge or protrusion. T3-T4: The thecal sac has a normal diameter. No evidence of disc bulge or protrusion. T4-T5: The thecal sac has a normal diameter. No evidence of disc bulge or protrusion. T5-T6: The thecal sac has a normal diameter. No evidence of disc bulge or protrusion. T6-T7: The thecal sac has a normal diameter. No evidence of disc bulge or protrusion. T7-T8: The thecal sac has a normal diameter. No evidence of disc bulge or protrusion. T8-T9: The thecal sac has a normal diameter. No evidence of disc bulge or protrusion. T9-T10: The thecal sac has a normal diameter. No evidence of disc bulge or protrusion. T10-T11: The thecal sac has a normal diameter. No evidence of disc bulge or protrusion. T11-T12: The thecal sac has a normal diameter. No evidence of disc bulge or protrusion. T12-L1: The thecal sac has a normal diameter. No evidence of disc bulge or protrusion. CONCLUSION: 1. Degenerative changes but no canal or foraminal narrowing. 2. No evidence for abscess. 3. T5 and T2 vertebral body lesions are noted. Metastatic deposits are not excluded. 4. Extensive subcutaneous edema of the upper thorax and cervical region. 5. Large bilateral pleural effusions. Jesús Anderson MD on November 12, 2016 at 14:04 Board Certified Radiologist. This report was verified electronically.
[2016-11-12 17:05] LABS: AUTOMATED NEUTROPHIL # 7.5 TH/MM3 (1.8-7.7); BASOPHIL % 0.4 % (0.0-2.0); EOSINOPHIL # 0.3 TH/MM3 (0-0.4); EOSINOPHIL % 3.8 % (0.0-4.0); HEMATOCRIT 28.5 % (35.0-46.0); LYMPH % 3.2 % (9.0-44.0); LYMPHOCYTE # 0.3 TH/MM3 (1.0-4.8); MEAN CELL VOLUME 92.7 FL (80.0-100.0); MEAN CORPUSCULAR HEMOGLOBIN 31.4 PG (27.0-34.0); MEAN CORPUSCULAR HGB CONC 33.9 % (32.0-36.0); MONO % 11.2 % (0.0-8.0); NEUT % 81.4 % (16.0-70.0); PLATELET COUNT 239 TH/MM3 (150-450); RED BLOOD COUNT 3.08 MIL/MM3 (4.00-5.30); RED CELL DISTRIBUTION WIDTH 13.5 % (11.6-17.2); WHITE BLOOD COUNT 9.2 TH/MM3 (4.0-11.0)
[2016-11-12 17:08] LABS: HEMO FLAGS AUTO DIFF
[2016-11-12 17:21] LABS: PROTHROMBIN TIME - PATIENT 11.2 SEC (9.8-11.6)
[2016-11-12 17:45] LABS: BANDS 2 % (0-6); BASOPHILS 1 % (0-2); EOSINOPHILS 4 % (0-4); MYELOCYTES 4 % (0-0); NEUTROPHIL # MANUAL DIFF 8.1 TH/MM3 (1.8-7.7); POLYS (SEG NEUTROPHILS) 82 % (16-70); WBC DIFF SAMPLE 100
[2016-11-12 17:47] LABS: PLATELET ESTIMATE SMEAR NORMAL (NORMAL); PLATELET MORPHOLOGY NORMAL (NORMAL); SCAN/DIFF FINAL DIFF MANUAL
[2016-11-12] MEDS ORDERED: THROMBIN (TOPICAL) 5,000 UNIT VIAL ONE (19:05)
[2016-11-12] MEDS ORDERED: VANCOMYCIN HCL 1000 MG VIAL ONE (19:05)
[2016-11-12] MEDS ORDERED: GELFOAM SIZE 100 ONE (19:06)
[2016-11-12] MEDS ORDERED: LIDOCAINE 1%/EPINEPHrine 1:100,000 SOLN 50 ML VIAL ONE (19:06)
[2016-11-12] MEDS ORDERED: GENTAMICIN SULFATE 80 MG/2 ML VIAL ONE (19:06)
--- NOTE | 2016-11-12 19:14 | HHI.CCPN ---
Subjective Remarks/Hospital Course This 86 year-old woman who presents to the emergency department complaining of nausea vomiting, low back pain, and chills on 11/05/2016. She has a history of metastatic endometrial cancer diagnosed 5 years ago initially, as well as chronic back pain. The chronic back pain preceded the malignancy. Most recent PET scan as reported by daughter revealed multiple bony metastasis to include skull, and right upper arm. She underwent an L4-L5 laminectomy about 2 weeks ago [facility] . Prior to her surgery , the patient was extremely physically active without any ambulation difficulties.She was doing well initially but over the past several days complained of increased nausea vomiting, increased low back pain, and chills. Upon admission incision has not had any drainage or bleeding,and she denied any urinary symptoms. The patient was admitted to [facility] on 11/05/2016, she subsequently has begun to have leukocytosis, urinary retention and noted drainage from lumbar laminectomy surgical site. Lumbar CT scan revealed postop laminectomy L4 with fluid and scattered bubbles possibly resolving hematoma, abscess could not be excluded. ID and Neurosurgery was consulted.Critical care medicine is consult that for patients noted sepsis, and progressive weakness bilateral lower extremities. Subjective: 11/07 Seen upon return from the OR following lumbar wound debridement and evacuation of epidural abscess by Dr. Melissa. Patient is to remain intubated per Dr. Melissa as she must be maintained with HOB flat due to dural leak (but rotate side to side q2 hours). At present she is not on continuous sedation, but is unresponsive to deep noxious stimuli upon return from general anesthesia. Reportedly large amount of respiratory secretions noted upon intubation by anesthesia. Routine airway per documentation. She received 1800 crystalloid intraoperatively. EBL 20 ml. 11/08: Afebrile. Patient remains on propofol infusion, moving bilateral upper and lower extremities wiggling toes and moving upper extremities. The patient was inadvertently placed on fentanyl infusion last night for purported pain. Fentanyl infusion discontinued, patient on when necessary pain medicine now currently following commands and denies pain. Leukocytosis resolved, the patient continues on Flagyl, Vancomycin and Ceptazidime per ID Dr. Nina. The patient remains flat in bed, supine position in order to begin nutrition PPN was initiated this a.m.. Extensive discussion with Dr. Melissa and Dr. Nina and palliative care consulted with planned discussion with family today. 11/09: Leukocytosis resolved. Wound culture was noted staph aureus. Patient was noted to have hypophosphatemia and hypomagnesemia ischemia which are being currently replaced. PPN was initiated for nutritional support secondary to put required positioning. Palliative care was consulted to discuss goals of care, currently aggressive treatment management continued per family request. 11/10: Afebrile .No acute events overnight. Patient underwent placement of CSF drain yesterday by interventional radiology. Patient's head of the bed to remain flat until Tuesday. The patient continues to have low phosphate and was placed on scheduled doses of phosphorus yesterday. Family requesting medication administration of vitamin C secondary to a small non-scientific research study that was published recently. Explained to family that it wasn't in evidence-based full research study performed but a small study without any level of evidence for implementation in the [place] at this time. Vitamin C is not indicated at this time. The family was educated by neurosurgery that the patient may have to possibly have surgery. 11/11 Tmax 99.0. The patient's CSF lumbar drain reevaluated by Dr. Melissa last evening, now draining fluid. No further drainage from surgical site. The patient remains in a supine position, PPN infusing for nutritional support. Her electrolytes continually being replaced per protocol. The patient remains on low-dose propofol infusion. Patient responsive following commands. 11/12: Patient was noted not to be moving upper extremities on command. Patient off sedation greater than 24 hours. MRI obtained today. Patient will return to surgery with Dr. Melissa. Lumbar drain dressing dry, with CSF draining. Objective Vital Signs Date Time Temp Pulse Resp B/P Pulse Ox O2 Delivery O2 Flow Rate FiO2 11/12/16 18:03 15 11/12/16 18:00 86 11/12/16 16:02 100 30 11/12/16 16:00 97.7 155/81 183/88 Intake and Output 11/11/16 11/11/16 11/12/16 08:00 16:00 00:00 Intake Total 552 ml 1074 ml 687 ml Output Total 365 ml 2500 ml 1260 ml Balance 187 ml -1426 ml -573 ml Result Diagram: 11/12/16 1645 11/12/16 0400 Imaging Last Impressions Chest X-Ray 11/05/16 0150 Signed Impressions: Service Date/Time: Saturday, November 05, 2016 01:56 - CONCLUSION: No acute cardiopulmonary disease. Deangelo Monsivais MD Lumbar Spine CT 11/05/16 0000 Signed Impressions: Service Date/Time: Saturday, November 05, 2016 04:14 - CONCLUSION: 1. Postop laminectomy at L4 level with fluid within the operative bed and a few scattered gas bubbles may be postsurgical change and possibly resolving hematoma, however abscess is not excluded. No definite signs of osteomyelitis. 2. Neural foramina compromise left L2-L3, bilateral L4-L5. 3. Bilateral masses compromise L5-S1. 4. Residual slight thecal sac stenosis may be present at L3-4 and L4-5. Deangelo Monsivais MD Head CT 11/05/16 0000 Signed Impressions: Service Date/Time: Saturday, November 05, 2016 16:08 - CONCLUSION: 1. No acute intracranial abnormality. Hussain Sandoval MD Abdomen/Pelvis CT 11/05/16 0000 Signed Impressions: Service Date/Time: Saturday, November 05, 2016 16:12 - CONCLUSION: 1. There is residual IV contrast within the kidneys and bladder. 2. There are no findings to indicate a bowel obstruction. 3. The patient is post hysterectomy. Hussain Sandoval MD Objective Remarks Drips: PPN 42cc/hr GENERAL: Elderly female who is orotracheally intubated and sedated SKIN: Warm and dry. HEAD: Atraumatic. Normocephalic. EYES: Pupils 2 mm bilaterally and sluggishly reactive. No scleral icterus. No injection or drainage. ENT: No nasal bleeding or discharge. NECK: Trachea midline. No JVD. CARDIOVASCULAR: Normal rate, regular rhythm. 2/6 systolic murmur left sternal border RESPIRATORY: No accessory muscle use. ET tube in place. Occasional coarse rhonchi. On mechanical ventilation ACV tidal volume 450/rate 15/PEEP 5/FiO2 35% GASTROINTESTINAL: Healed abdominal incision noted. Bowel sounds hypoactive. No tenderness appreciable : Jean-Baptiste in place with light yellow urine output. MUSCULOSKELETAL: Extremities without clubbing, cyanosis, 2+ peripheral edema bilateral upper extremity. No obvious deformities. NEUROLOGICAL: RASS 0. Opens eyes, follows commands with squeeze bilateral hands. Does move bilateral feet including plantar flexion with minimal extension. A/P Assessment and Plan Plan by systems: Neurologic: Metabolic encephalopathy secondary to sepsis Lumbar epidural abscess Status post lumbar wound debridement and drainage epidural abscess 11/07/16 (Dr. Melissa) GCS 11T-responsive, following commands Neurochecks every 2 hour per ICU protocol 11/05 CT lumbar spine-postop laminectomy L4 with fluid and scattered bubbles possibly resolving hematoma. Abscess cannot be excluded. Neural foraminotomy not compromise left L2-3, L4-L5, residual thecal sac stenosis may be present L3 L4, L4-L5,B/L mass compromise L5-S1. MRI -post surgical changes with hematoma/seroma ? Abscess L3/L4 and L4/L5. 11/07-postop CSF leak, spinal epidural abscess, postoperative wound dehiscence, pre-existing dural tear with repair, status post debridement lumbar wound dehiscence, evacuation of lumbar abscess indirect repair of pre-existing dural tear Reportedly persistent dural leak noted intraoperatively. Patient is to remain head of bed down/supine per Dr. Melissa. 11/06-Ammonia level 10. EEG 11/06/16moderately slow background consistent with encephalopathy. No epileptiform features. Neurology following, Dr. Thomson NSG following, Dr. Melissa 11/09 IR CSF drain L1-L2 11/12 CT lumbar spine L3-4, L4-5 mass effect. She is scheduled to go to or today with neurosurgery Respiratory: Acute respiratory failure Duo nebs every 6 hours scheduled ACV tidal line 450/rate 15/P5/FiO2 30%. Follow-up ABG as appropriate. Ventilator bundle Maintain head of bed flat per neurosurgery recommendations CT [id number] bilateral pleural effusions, T2 and T5 lesions cannot rule out metastatic disease Cardiovascular: Maintain MAP > 65 mmHg Currently normotensive without vasopressor support FEN/RENAL Acute kidney injury Neurogenic bladder with urinary retention. Hypomagnesemia Hypophosphatemia Urinary retention noted upon Jean-Baptiste insertion. Jean-Baptiste to remain in place for accurate intake and output assessment. Monitor electrolytes and replace as indicated. IV Hep-Lock Electrolyte replacement per ICU protocol Scheduled doses of phosphorus GI: Moderate protein energy malnutrition PPN Patient position supine, unable to begin tube feeds. PPN at 42 cc/hour initiated with lipid supplementation 11/[address] Hale, no GI issues identified. ID: Severe sepsis-resolved Leukocytosis-resolved Antibiotics per infectious disease, Dr. T. Nemani HEME: Metastatic Endometrial cancer s/p recent chemotherapy 10/06 Chronic anemia Monitor CBC Endocrine: Low-dose insulin sliding scale at bedside glucose every 6 hours. GI Prophylaxis Pepcid twice a day DVT Prophylaxis -- SCDs. Hold pharmacologic DVT prophylaxis until approved by neurosurgery, patient to return to surgery. ACCESS: Port accessed right chest. Left radial art line placed in OR 11/07 day # 6 Palliative care following This patient remains critically ill with one or more organ systems which are or may become a threat to life. 35 minutes exclusive of separately billable procedures. The patient remains HOB flat per neurosurgery recommendations. Physician Juanita Hutchison MD Nov 12, 2016 19:14
[2016-11-12] MEDS: FAT EMULSION 20% INJ 250 ML (@10 mls/hr) IV SCH (19:18)
[2016-11-12] MEDS: CLINIMIX E 4.25/5 1000 mL- </= 42 mls/hr IV SCH ×3 (19:18)
[2016-11-12] MEDS ORDERED: THROMBIN (TOPICAL) 5,000 UNIT VIAL TOPICAL ONE (21:00)
[2016-11-12] MEDS ORDERED: VANCOMYCIN 500 MG VIAL ONE (22:16)
--- NOTE | 2016-11-12 23:36 | RADRPT ---
EXAM DATE/TIME: 11/12/2016 21:53 COMPARISON: No previous studies available for comparison. INDICATIONS : Level localization for I&D on lumbar spine. MEDICAL HISTORY : Uterine ca. SURGICAL HISTORY : Fusion, cervical. Fusion, lumbar. ENCOUNTER: Subsequent ACUITY: 4 - 6 days PAIN SCORE: Non-responsive. LOCATION: Lumbar spine. FINDINGS: FINDINGS: Single lateral view of the spine demonstrates the spine to be in anatomic alignment. A probe is in pl ana at the L1 level. CONCLUSION: 1. Postsurgical changes as above. Reed George MD on November 12, 2016 at 23:35 Board Certified Radiologist. This report was verified electronically.
[2016-11-13] VITALS (19 sets, daily range): BP systolic 104–193; BP diastolic 44–99; PULSE 79–113; RESP 15–18; TEMP 97.8–99.1; O2SAT 96–100
[2016-11-13] MEDS: HYDROmorphone HCL PF 1 MG/ML VIAL IV PUSH PRN ×6 (00:22→20:09)
--- NOTE | 2016-11-13 00:42 | PD.OP ---
Operative Report Date of Surgery: Nov 13, 2016 Preoperative Diagnosis: (1) Postoperative wound dehiscence (2) Postoperative CSF leak (3) Spinal epidural abscess Postoperative wound dehiscence Lumbar wound site abscess formation Pre-existing dural tear at L4 5 laminectomy site Postoperative Diagnosis: (1) Postoperative wound dehiscence (2) Postoperative CSF leak (3) Spinal epidural abscess Postoperative wound dehiscence Lumbar wound site abscess formation Pre-existing dural tear at L4 5 laminectomy site Procedure: 1. Exploration and debridement previous L4 5 wound site. 2. Revision indirect closure right L4 5 lateral dural tear 3. Placement of lumbar subarachnoid drain, removal previous subarachnoid drain Anesthesia: Gen. endotracheal Surgeon: Pratik Melissa Shake Splitter(s): Oh Oliveira Operation and Findings: Patient was brought into the operating room were intubated sedation place. Jean-Baptiste catheter DAJUAN hose and sequential compression devices in place Patient was placed in prone position on the concentric Richard table with side bolsters and all extremities appropriately padded. Appropriate time out procedure performed with all personal present and in agreement. The previous lumbar subarachnoid drain was imaged with the C-arm and again carefully checked to determine the function. There was no active drainage from the subarachnoid drain. The existing subarachnoid drain catheter was removed. The lumbar region was prepped and draped in a sterile fashion The lumbar spinal needle was advanced at the L2-3 level into the central spinal canal using AP and lateral C-arm imaging. There was excellent flow of CSF through the needle. The lumbar subarachnoid drain catheter with guidewire was slowly advanced through the lumbar needle into the lumbar subarachnoid space up to the level of the lower thoracic region. The guidewire was removed. There was good flow slightly yellowish cerebrospinal fluid through the catheter. The catheter was secured to the skin with the Silastic anchor and attached to the sterile drainage bag. The existing L4 5 midline incision was then reopened and previous sutures removed. Despite the appearance of the preoperative MRI indicating significant thecal sac compression at L4 5 level, there was noted to be some dissolved Gelfoam with thin layer of tissue glue present over the dorsal thecal sac along with some fluid, none of which appear to be causing any significant compression on the thecal sac. The previous piece of bovine pericardium was in place over the lateral thecal sac on the right side. This was also removed. The surgical site was well irrigated with antibiotic irrigation. Additional debridement of necrotic tissue along the paraspinous muscle and fascia was performed with the Metzenbaum scissors. The microscope in place and used for the remainder of the procedure and operative closure. The dural tear along the lateral spinal canal on the right was again visualized. There was no tissue along the anterior lateral thecal sac which would hold the suture. In order to try to seal the defect, a piece of DuraGen was cut to the appropriate dimensions and placed along the dorsal lateral thecal sac and tucked underneath the residual lamina and along the pedicle on each side to help hold it in place. There was no significant lamina overlying the spinal canal at L4 5 level, and much of the facet had also been removed. After tucking the DuraGen as much as possible between the residual bony structures and the thecal sac and area of dural tear, a layer of DuraSeal was placed over the laminectomy site with one additional layer of DuraGen. Then approximately 15 cc of the patient's own blood obtained from the arterial line for anesthesia and placed in a sterile specimen container for the sterile field was placed into the wound site and allow deformity clot. Care was taken not to place an excessive amount of packing material or blood in her to avoid any excessive compression of the thecal sac. The incision was then closed with 0 Vicryl for the deep fascia, 2-0 Vicryl superficial fascia, 3-0 Vicryl subcutaneous closure, and 4-0 nylon running for the skin closure. A sterile periportal dressing was placed. The patient was placed in supine position on the bed and maintain implant position. The lumbar drain remained open during transport. The patient was taken back to intensive medical care unit in stable condition. All counts were correct at the end of the case Estimated blood loss was 10 cc Specimen of the CSF and fluid from the wound site was sent for routine microbiology specimen. Pratik Melissa MD Nov 13, 2016 00:42
[2016-11-13] MEDS: LABETALOL HCL 100 MG/20 ML VIAL IV PRN ×4 (01:27→09:09)
[2016-11-13 02:36] LABS: CSF LYMPHOCYTES 30 %; CSF MONOCYTES 8 %; CSF NEUTROPHILS 62 %; GROSS BLOOD TUBE #1 TRACE (0); SUPERNATE COLOR TUBE #1 SLIGHTLY XANTHOCHROM (CLEAR); WBC TUBE #1 9 /MM3 (0-10)
[2016-11-13 03:51] LABS: AUTOMATED NEUTROPHIL # 8.9 TH/MM3 (1.8-7.7); BASOPHIL % 0.1 % (0.0-2.0); EOSINOPHIL # 0.3 TH/MM3 (0-0.4); EOSINOPHIL % 2.7 % (0.0-4.0); HEMATOCRIT 27.1 % (35.0-46.0); LYMPH % 2.5 % (9.0-44.0); LYMPHOCYTE # 0.3 TH/MM3 (1.0-4.8); MEAN CORPUSCULAR HEMOGLOBIN 31.8 PG (27.0-34.0); MEAN CORPUSCULAR HGB CONC 34.6 % (32.0-36.0); MONO % 9.4 % (0.0-8.0); NEUT % 85.3 % (16.0-70.0); PLATELET COUNT 234 TH/MM3 (150-450); RED BLOOD COUNT 2.95 MIL/MM3 (4.00-5.30); RED CELL DISTRIBUTION WIDTH 13.5 % (11.6-17.2); WHITE BLOOD COUNT 10.4 TH/MM3 (4.0-11.0)
[2016-11-13 03:54] LABS: HEMO FLAGS AUTO DIFF
[2016-11-13] MEDS: RESP: ALBUTEROL 2.5 MG/IPRATROPIUM 0.5 MG NEB (SCH) INH ×4 (04:00→19:56)
[2016-11-13] MEDS: CHLORHEXIDINE GLUCONATE 2 % 1 PACK (2 CLOTHS) TOP SCH (04:00)
[2016-11-13 04:16] LABS: BICARBONATE 28.4 MEQ/L (21.0-32.0); MAGNESIUM 1.6 MG/DL (1.5-2.5); POTASSIUM 3.8 MEQ/L (3.5-5.1)
[2016-11-13 04:26] LABS: BANDS 10 % (0-6); BASOPHILS 1 % (0-2); METAMYELOCYTES 1 % (0-1); NEUTROPHIL # MANUAL DIFF 9.6 TH/MM3 (1.8-7.7); POLYS (SEG NEUTROPHILS) 81 % (16-70); WBC DIFF SAMPLE 100
[2016-11-13 04:27] LABS: PLATELET ESTIMATE SMEAR NORMAL (NORMAL); PLATELET MORPHOLOGY ENLARGED (NORMAL); SCAN/DIFF FINAL DIFF MANUAL
[2016-11-13] MEDS: FAMOTIDINE 20 MG/2 ML VIAL IV PUSH SCH ×2 (04:42→15:12)
[2016-11-13] MEDS: INSULIN ASPART SUPPLEMENTAL SCALE SQ SCH ×4 (06:00→23:51)
[2016-11-13] MEDS: CHLORHEXIDINE 0.12% (ORAL KIT) 15 ML CUP MT SCH ×2 (08:00→19:46)
[2016-11-13] MEDS: SODIUM CHLORIDE 0.9% FLUSH 10 ML FLUSH IV FLUSH SCH ×2 (09:00→19:46)
[2016-11-13] MEDS: POTASSIUM PHOSPHATE MONOBASIC 500 MG TAB PO SCH (09:09)
--- NOTE | 2016-11-13 12:16 | HHI.PR ---
Subjective Remarks pt remains in icu to or last pm Dr Melissa replaced blood patch and csf drain Objective Vital Signs Date Time Temp Pulse Resp B/P Pulse Ox O2 Delivery O2 Flow Rate FiO2 11/13/16 07:46 100 30 11/13/16 06:00 81 11/13/16 04:15 100 30 11/13/16 04:00 98.1 85 17 160/77 100 170/72 11/13/16 04:00 30 11/13/16 04:00 85 11/13/16 02:00 81 11/13/16 00:00 97.8 92 15 178/87 97 180/72 11/13/16 00:00 30 11/13/16 00:00 92 11/12/16 23:30 98 30 11/12/16 20:15 100 100 11/12/16 20:00 94 11/12/16 20:00 30 11/12/16 20:00 97.7 94 15 152/71 100 173/73 11/12/16 19:45 100 30 11/12/16 18:03 15 11/12/16 18:00 86 11/12/16 16:02 100 30 11/12/16 16:00 30 11/12/16 16:00 97.7 95 15 155/81 98 183/88 11/12/16 16:00 95 11/12/16 14:00 84 11/12/16 13:39 98 30 I/O 11/12/16 11/12/16 11/12/16 11/13/16 11/13/16 11/13/16 07:00 15:00 23:00 07:00 15:00 23:00 Intake Total 597 ml 1377 ml 1111 ml Output Total 360 ml 950 ml 975 ml Balance 237 ml 427 ml 136 ml Intake IV Total 210 ml 784 ml 300 ml TPN/PPN 313 ml 382 ml 657 ml Lipid 74 ml 91 ml 154 ml Tube Irrigant 120 ml Output Urine Total 300 ml 875 ml 900 ml Drainage Total 60 ml 75 ml 75 ml # Bowel Movements 0 Result Diagram: 11/13/16 03411/13/16 034 Procedures evacuation of epidural abscess 11/07 had laminectomy 2 weeks ago Objective Remarks CONSTITUTIONAL/GENERAL: This is an adequately nourished patient, in no apparent distress intubated in icu. TUBES/LINES/DRAINS: SKIN: No jaundice, rashes, or lesions. Skin temperature appropriate. Not diaphoretic. HEAD: Atraumatic. Normocephalic. EYES: follows me . Fundi not examined. ENT: Nose without bleeding or purulent drainage. Throat without visible erythema, exudates, masses, or lesions intubated on vent. NECK: Trachea midline. Supple, nontender. No palpable thyroid enlargement or nodularity. CARDIOVASCULAR: Regular rate and rhythm without murmurs, gallops, or rubs. No JVD. Peripheral pulses symmetric pt has tachacardic pulses. RESPIRATORY/CHEST: Symmetric, unlabored respirations. Clear to auscultation. Breath sounds equal bilaterally. No wheezes, rales, or rhonchi. GASTROINTESTINAL: Abdomen soft, some tenderness nausea resolved nondistended. No hepato-splenomegaly, or palpable masses. No guarding. Bowel sounds present. GENITOURINARY: Without palpable bladder distension. Jean-Baptiste catheter in place. MUSCULOSKELETAL: Extremities without clubbing, cyanosis, or edema. No joint tenderness or effusion noted. No calf tenderness. No mottling or clubbing.lumbar wound with drainage LYMPHATICS: No palpable cervical or supraclavicular adenopathy. NEUROLOGICAL: sedated Motor and sensory grossly within normal limits. Follows commands. Moves all extremities. PSYCHIATRIC: No obvious anxiety/depression. no apparent hallucinations or other psychotic thought process. Medications and IVs Current Medications Medications (Trade) Dose Ordered Sig/Aleja Route PRN Reason Start Time Stop Time Status Last Admin Dose Admin Acetaminophen (Tylenol Supp) 650 mg Q4H PRN RECTAL FEVER > 101 11/05/16 18:30 11/05/16 18:30 Sodium Chloride (NS Flush) 2 ml UNSCH PRN IV FLUSH FLUSH AFTER USING IV ACCESS 11/06/16 12:30 11/11/16 08:31 Sodium Chloride (NS Flush) 2 ml BID IV FLUSH 11/06/16 21:00 11/13/16 09:00 Acetaminophen (Tylenol) 650 mg Q6H PRN PO PAIN 1-10 AND/OR FEVER >101F 11/06/16 12:30 11/08/16 16:01 Ondansetron HCl (Zofran Inj) 4 mg Q6H PRN IV NAUSEA OR VOMITING 11/06/16 12:30 Bisacodyl (Dulcolax Supp) 10 mg DAILY PRN RECTAL CONSTIPATION 11/06/16 12:30 Miscellaneous Information 1 Q361D XX 11/06/16 12:30 Chlorhexidine Gluconate (Chlorhexidine 2% Cloth) Taper DAILY@04 TOP 11/07/16 04:00 11/03/17 03:59 11/12/16 04:00 Chlorhexidine Gluconate 3 pack 3 pack UNSCH PRN TOP HYGIENIC CARE 11/06/16 12:30 Propofol (Diprivan 1000 Mg/100ml Inj) 100 ml @ 0 mls/hr TITRATE IV 11/07/16 03:45 11/11/16 08:38 Chlorhexidine Gluconate (Peridex 0.12% Liq) 15 ml BID@08,20 MT 11/07/16 08:00 11/13/16 08:00 Dextrose (D50w (Vial) Inj) 25 ml UNSCH PRN IV PUSH HYPOGLYCEMIA-SEE COMMENTS 11/07/16 04:15 Glucagon (Glucagon Inj) 1 mg UNSCH PRN OTHER HYPOGLYCEMIA-SEE COMMENTS 11/07/16 04:15 Insulin Aspart 1 1 Q6H SQ 11/07/16 06:00 11/12/16 17:09 Potassium Chloride 100 ml @ 50 mls/hr Q2H PRN IV-CENTRAL For Potassium 2.8 - 3.2 mEq/L 11/07/16 08:45 11/07/16 23:30 Potassium Chloride 100 ml @ 50 mls/hr Q2H PRN IV For Potassium 2.8 - 3.2 mEq/L 11/07/16 08:45 Potassium Chloride 100 ml @ 25 mls/hr UNSCH PRN IV-CENTRAL For Potassium 3.3 - 3.5 mEq/L 11/07/16 08:45 Potassium Chloride 100 ml @ 50 mls/hr Q2H PRN IV For Potassium 3.3 - 3.5 mEq/L 11/07/16 08:45 11/11/16 08:30 Magnesium Sulfate/ Sodium Chloride (Magnesium Sulfate Inj/NS Inj) 100 ml @ 50 mls/hr UNSCH PRN IV For Magnesium 0.9 - 1.1 mg/dL 11/07/16 08:45 Magnesium Oxide 800 mg 800 mg UNSCH PRN PO For Magnesium 1.2 - 1.6 mg/dL 11/07/16 08:45 11/11/16 08:31 Magnesium Sulfate/ Sodium Chloride (Magnesium Sulfate Inj/NS Inj) 100 ml @ 50 mls/hr UNSCH PRN IV For Magnesium 1.2 - 1.6 mg/dL 11/07/16 08:45 11/12/16 08:42 Potassium Phosphate 2000 mg 2,000 mg Q4H PRN PO For Phosphorus < 2.5 mg/dL 11/07/16 08:45 11/12/16 08:42 Sodium Phosphate/ Sodium Chloride (Sodium Phosphate Inj/NS 250 ml Inj) 250 ml @ 42 mls/hr UNSCH PRN IV For Phosphorus < 2.5 mg/dL 11/07/16 08:45 Potassium Phosphate 2000 mg 2,000 mg UNSCH PRN PO/TUBE SEE LABEL COMMENTS 11/07/16 08:45 Potassium Phosphate/Sodium Chloride (Potassium Phosphate Inj/NS 250 ml Inj) 260 ml @ 42 mls/hr UNSCH PRN IV SEE LABEL COMMENTS 11/07/16 08:45 11/10/16 06:09 Famotidine (Pepcid Inj) 20 mg Q12H IV PUSH 11/07/16 16:00 11/13/16 04:42 Metoprolol Tartrate 2.5 mg 2.5 mg Q6H PRN IV PUSH SYS BP GREATER THAN 160 MMHG 11/08/16 14:45 11/12/16 05:08 Multivitamins 10 ml/Folic Acid 1 mg/Amino Acids/ Electrolytes/ Dextrose 1,010.2 ml @ 42 mls/hr Q24H IV 11/08/16 20:00 11/12/16 19:18 Fat Emulsion Intravenous (Liposyn Iii 20% Inj) 250 ml @ 10 mls/hr Q24H IV 11/08/16 20:00 11/12/16 19:18 Hydromorphone HCl 1 mg 1 mg Q2HR PRN IV PUSH PAIN SCALE 7 TO 10 11/08/16 15:45 11/13/16 11:54 Sodium Chloride (1/2 NS 1000 ml Inj) 1,000 ml @ 0 mls/hr Q0M IV 11/09/16 09:53 Potassium Phosphate 500 mg 500 mg DAILY PO 11/10/16 09:00 11/13/16 09:09 Cefazolin Sodium/ Sodium Chloride (Ancef Inj/NS Inj) 100 ml @ 200 mls/hr Q8HR IV 11/09/16 22:00 11/13/16 06:24 Labetalol HCl (Trandate Inj) 10 mg Q1H PRN IV SYS BP GREATER THAN 170 MMHG 11/13/16 01:30 11/13/16 09:09 Assessment and Plan Problem List: (1) Nausea & vomiting Status: Resolved (2) Weakness Status: Acute (3) Leukocytosis Status: Acute Plan: surgical site debrided wbc improved hr and temp controlled blood cultures show gram pos cocci further id pending (4) Hypokalemia Status: Acute Plan: on potassium replacement protocall Assessment and Plan pt septic transfered to icu case discussed with intensivest dr jensen await ID consult neuro surgical consult also ordered Discussed Condition With family Discharge Planning [facility] Nestor Kendrick DO Nov 13, 2016 12:16
--- NOTE | 2016-11-13 13:23 | HHI.NSPN ---
(Lorraine Swain) Note Status Status: Progress Note (Lorraine Swain) Interval History Interval History 86-year-old female with history of lumbar laminectomy approximately 2 weeks ago in [place]. Patient presents to the emergency room on 11/05/16 with decreasing mental status, GI symptoms, and subsequent opening of the wound with wound dehiscence and purulent drainage. 11/07/16: Patient to surgery on an urgent basis for evacuation of epidural abscess , wound debridement. Patient found to have pre-existing dural tear with CSF leakage which could not be primarily repaired. Indirect repair of dural tear with blood clot, Gelfoam, thrombin, tissue glue and reclosure of wound site. 11/08/16: Patient remains intubated, sedated, head of bed flat. Dressing dry and intact 11/09/16: Patient remains intubated. Slight amount of drainage noted from incision. Lumbar subarachnoid drain placed per interventional radiology 11/10/16: Lumbar subarachnoid drain is not functioning well. Discussed with nursing staff 11/11/16: Intermittent drainage from subarachnoid drain. Wound and dressing dry and the morning. 11/13: pt intubated, POD 1 s/p replacement of lumbar drain with closure of CSF with leak with Dr. Melissa (Lorraine Swain) Labs, Micro, & Vital Signs Results Date Time Temp Pulse Resp B/P Pulse Ox O2 Delivery O2 Flow Rate FiO2 11/13/16 12:43 96 30 11/13/16 07:46 100 30 11/13/16 06:00 81 11/13/16 04:15 100 30 11/13/16 04:00 98.1 85 17 160/77 100 170/72 11/13/16 04:00 30 11/13/16 04:00 85 11/13/16 02:00 81 11/13/16 00:00 97.8 92 15 178/87 97 180/72 11/13/16 00:00 30 11/13/16 00:00 92 11/12/16 23:30 98 30 11/12/16 20:15 100 100 11/12/16 20:00 94 11/12/16 20:00 30 11/12/16 20:00 97.7 94 15 152/71 100 173/73 11/12/16 19:45 100 30 11/12/16 18:03 15 11/12/16 18:00 86 11/12/16 16:02 100 30 11/12/16 16:00 30 11/12/16 16:00 97.7 95 15 155/81 98 183/88 11/12/16 16:00 95 11/12/16 14:00 84 11/12/16 13:39 98 30 11/13/16 07:00 Intake Total 2488 ml Output Total 1925 ml Balance 563 ml Constitutional Vital Signs Date Time Temp Pulse Resp B/P Pulse Ox O2 Delivery O2 Flow Rate FiO2 11/13/16 12:43 96 30 11/13/16 07:46 100 30 11/13/16 06:00 81 11/13/16 04:15 100 30 11/13/16 04:00 98.1 85 17 160/77 100 170/72 11/13/16 04:00 30 11/13/16 04:00 85 11/13/16 02:00 81 11/13/16 00:00 97.8 92 15 178/87 97 180/72 11/13/16 00:00 30 11/13/16 00:00 92 11/12/16 23:30 98 30 11/12/16 20:15 100 100 11/12/16 20:00 94 11/12/16 20:00 30 11/12/16 20:00 97.7 94 15 152/71 100 173/73 11/12/16 19:45 100 30 11/12/16 18:03 15 11/12/16 18:00 86 11/12/16 16:02 100 30 11/12/16 16:00 30 11/12/16 16:00 97.7 95 15 155/81 98 183/88 11/12/16 16:00 95 11/12/16 14:00 84 11/12/16 13:39 98 30 11/13/16 07:00 Intake Total 2488 ml Output Total 1925 ml Balance 563 ml (Lorraine Swain) Review of Systems/Exam Exam Intubated, and sedated. Mildly opens eyes to verbal stimuli not consistently following commands Motor: wiggling toes bilaterally, ?slight 1/5 leg movement seen Head of bed is flat Lumbar drain secured, CSF yellow in color (Lorraine Swain) Medications Current Medications Current Medications Medications (Trade) Dose Ordered Sig/Aleja Route PRN Reason Start Time Stop Time Status Last Admin Dose Admin Acetaminophen (Tylenol Supp) 650 mg Q4H PRN RECTAL FEVER > 101 11/05/16 18:30 11/05/16 18:30 Sodium Chloride (NS Flush) 2 ml UNSCH PRN IV FLUSH FLUSH AFTER USING IV ACCESS 11/06/16 12:30 11/11/16 08:31 Sodium Chloride (NS Flush) 2 ml BID IV FLUSH 11/06/16 21:00 11/13/16 09:00 Acetaminophen (Tylenol) 650 mg Q6H PRN PO PAIN 1-10 AND/OR FEVER >101F 11/06/16 12:30 11/08/16 16:01 Ondansetron HCl (Zofran Inj) 4 mg Q6H PRN IV NAUSEA OR VOMITING 11/06/16 12:30 Bisacodyl (Dulcolax Supp) 10 mg DAILY PRN RECTAL CONSTIPATION 11/06/16 12:30 Miscellaneous Information 1 Q361D XX 11/06/16 12:30 Chlorhexidine Gluconate (Chlorhexidine 2% Cloth) Taper DAILY@04 TOP 11/07/16 04:00 11/03/17 03:59 11/12/16 04:00 Chlorhexidine Gluconate 3 pack 3 pack UNSCH PRN TOP HYGIENIC CARE 11/06/16 12:30 Propofol (Diprivan 1000 Mg/100ml Inj) 100 ml @ 0 mls/hr TITRATE IV 11/07/16 03:45 11/11/16 08:38 Chlorhexidine Gluconate (Peridex 0.12% Liq) 15 ml BID@08,20 MT 11/07/16 08:00 11/13/16 08:00 Dextrose (D50w (Vial) Inj) 25 ml UNSCH PRN IV PUSH HYPOGLYCEMIA-SEE COMMENTS 11/07/16 04:15 Glucagon (Glucagon Inj) 1 mg UNSCH PRN OTHER HYPOGLYCEMIA-SEE COMMENTS 11/07/16 04:15 Insulin Aspart 1 1 Q6H SQ 11/07/16 06:00 11/12/16 17:09 Potassium Chloride 100 ml @ 50 mls/hr Q2H PRN IV-CENTRAL For Potassium 2.8 - 3.2 mEq/L 11/07/16 08:45 11/07/16 23:30 Potassium Chloride 100 ml @ 50 mls/hr Q2H PRN IV For Potassium 2.8 - 3.2 mEq/L 11/07/16 08:45 Potassium Chloride 100 ml @ 25 mls/hr UNSCH PRN IV-CENTRAL For Potassium 3.3 - 3.5 mEq/L 11/07/16 08:45 Potassium Chloride 100 ml @ 50 mls/hr Q2H PRN IV For Potassium 3.3 - 3.5 mEq/L 11/07/16 08:45 11/11/16 08:30 Magnesium Sulfate/ Sodium Chloride (Magnesium Sulfate Inj/NS Inj) 100 ml @ 50 mls/hr UNSCH PRN IV For Magnesium 0.9 - 1.1 mg/dL 11/07/16 08:45 Magnesium Oxide 800 mg 800 mg UNSCH PRN PO For Magnesium 1.2 - 1.6 mg/dL 11/07/16 08:45 11/11/16 08:31 Magnesium Sulfate/ Sodium Chloride (Magnesium Sulfate Inj/NS Inj) 100 ml @ 50 mls/hr UNSCH PRN IV For Magnesium 1.2 - 1.6 mg/dL 11/07/16 08:45 11/12/16 08:42 Potassium Phosphate 2000 mg 2,000 mg Q4H PRN PO For Phosphorus < 2.5 mg/dL 11/07/16 08:45 11/12/16 08:42 Sodium Phosphate/ Sodium Chloride (Sodium Phosphate Inj/NS 250 ml Inj) 250 ml @ 42 mls/hr UNSCH PRN IV For Phosphorus < 2.5 mg/dL 11/07/16 08:45 Potassium Phosphate 2000 mg 2,000 mg UNSCH PRN PO/TUBE SEE LABEL COMMENTS 11/07/16 08:45 Potassium Phosphate/Sodium Chloride (Potassium Phosphate Inj/NS 250 ml Inj) 260 ml @ 42 mls/hr UNSCH PRN IV SEE LABEL COMMENTS 11/07/16 08:45 11/10/16 06:09 Famotidine (Pepcid Inj) 20 mg Q12H IV PUSH 11/07/16 16:00 11/13/16 04:42 Metoprolol Tartrate 2.5 mg 2.5 mg Q6H PRN IV PUSH SYS BP GREATER THAN 160 MMHG 11/08/16 14:45 11/12/16 05:08 Multivitamins 10 ml/Folic Acid 1 mg/Amino Acids/ Electrolytes/ Dextrose 1,010.2 ml @ 42 mls/hr Q24H IV 11/08/16 20:00 11/12/16 19:18 Fat Emulsion Intravenous (Liposyn Iii 20% Inj) 250 ml @ 10 mls/hr Q24H IV 11/08/16 20:00 11/12/16 19:18 Hydromorphone HCl 1 mg 1 mg Q2HR PRN IV PUSH PAIN SCALE 7 TO 10 11/08/16 15:45 11/13/16 11:54 Sodium Chloride (1/2 NS 1000 ml Inj) 1,000 ml @ 0 mls/hr Q0M IV 11/09/16 09:53 Potassium Phosphate 500 mg 500 mg DAILY PO 11/10/16 09:00 11/13/16 09:09 Cefazolin Sodium/ Sodium Chloride (Ancef Inj/NS Inj) 100 ml @ 200 mls/hr Q8HR IV 11/09/16 22:00 11/13/16 06:24 Labetalol HCl (Trandate Inj) 10 mg Q1H PRN IV SYS BP GREATER THAN 170 MMHG 11/13/16 01:30 11/13/16 09:09 (Lorraine Swain) Medical Decision Making MDM Remarks 86 y/o female s/p replacement of lumbar drain with closure of CSF leak, irrigation and debridement of lumbar wound by Dr. Melissa 11/12/16 (Lorraine Swain) Plan Plan Remarks cont keep HOB flat, log roll only cont lumbar draining cont neuro checks dw daughter bedside (Lorraine Swain) Attending Statement The exam, history, and the medical decision-making described in the above note were completed with the assistance of the mid-level provider. I reviewed and agree with the findings presented. I attest that I had a [id number] encounter with the patient on the same day, and personally performed and documented my assessment and findings in the medical record. (Baudilio Mckeon MD) Lorraine Swain Nov 13, 2016 13:23 Baudilio Mckeon MD Nov 14, 2016 18:29
[2016-11-13] MEDS: SODIUM CHLORIDE 1 GRAM TAB PO SCH ×2 (14:00→19:46)
--- NOTE | 2016-11-13 14:13 | HHI.CCPN ---
Subjective Remarks/Hospital Course This 86 year-old woman who presents to the emergency department complaining of nausea vomiting, low back pain, and chills on 11/05/2016. She has a history of metastatic endometrial cancer diagnosed 5 years ago initially, as well as chronic back pain. The chronic back pain preceded the malignancy. Most recent PET scan as reported by daughter revealed multiple bony metastasis to include skull, and right upper arm. She underwent an L4-L5 laminectomy about 2 weeks ago in [facility] . Prior to her surgery , the patient was extremely physically active without any ambulation difficulties.She was doing well initially but over the past several days complained of increased nausea vomiting, increased low back pain, and chills. Upon admission incision has not had any drainage or bleeding,and she denied any urinary symptoms. The patient was admitted to [facility] on 11/05/2016, she subsequently has begun to have leukocytosis, urinary retention and noted drainage from lumbar laminectomy surgical site. Lumbar CT scan revealed postop laminectomy L4 with fluid and scattered bubbles possibly resolving hematoma, abscess could not be excluded. ID and Neurosurgery was consulted.Critical care medicine is consult that for patients noted sepsis, and progressive weakness bilateral lower extremities. Subjective: 11/07 Seen upon return from the OR following lumbar wound debridement and evacuation of epidural abscess by Dr. Melissa. Patient is to remain intubated per Dr. Melissa as she must be maintained with HOB flat due to dural leak (but rotate side to side q2 hours). At present she is not on continuous sedation, but is unresponsive to deep noxious stimuli upon return from general anesthesia. Reportedly large amount of respiratory secretions noted upon intubation by anesthesia. Routine airway per documentation. She received 1800 crystalloid intraoperatively. EBL 20 ml. 11/08: Afebrile. Patient remains on propofol infusion, moving bilateral upper and lower extremities wiggling toes and moving upper extremities. The patient was inadvertently placed on fentanyl infusion last night for purported pain. Fentanyl infusion discontinued, patient on when necessary pain medicine now currently following commands and denies pain. Leukocytosis resolved, the patient continues on Flagyl, Vancomycin and Ceptazidime per ID Dr. Nina. The patient remains flat in bed, supine position in order to begin nutrition PPN was initiated this a.m.. Extensive discussion with Dr. Melissa and Dr. Nina and palliative care consulted with planned discussion with family today. 11/09: Leukocytosis resolved. Wound culture was noted staph aureus. Patient was noted to have hypophosphatemia and hypomagnesemia ischemia which are being currently replaced. PPN was initiated for nutritional support secondary to put required positioning. Palliative care was consulted to discuss goals of care, currently aggressive treatment management continued per family request. 11/10: Afebrile .No acute events overnight. Patient underwent placement of CSF drain yesterday by interventional radiology. Patient's head of the bed to remain flat until Tuesday. The patient continues to have low phosphate and was placed on scheduled doses of phosphorus yesterday. Family requesting medication administration of vitamin C secondary to a small non-scientific research study that was published recently. Explained to family that it wasn't in evidence-based full research study performed but a small study without any level of evidence for implementation in the [place] at this time. Vitamin C is not indicated at this time. The family was educated by neurosurgery that the patient may have to possibly have surgery. 11/11 Tmax 99.0. The patient's CSF lumbar drain reevaluated by Dr. Melissa last evening, now draining fluid. No further drainage from surgical site. The patient remains in a supine position, PPN infusing for nutritional support. Her electrolytes continually being replaced per protocol. The patient remains on low-dose propofol infusion. Patient responsive following commands. 11/12: Patient was noted not to be moving upper extremities on command. Patient off sedation greater than 24 hours. MRI obtained today. Patient will return to surgery with Dr. Melissa. Lumbar drain dressing dry, with CSF draining. 11/13: The patient returned to neurosurgery yesterday, new lumbar drain placed. Minimal movement of bilateral upper extremities noted this a.m.. Patient moving hands minimally lifting arms, wiggling fingers and toes. Objective Vital Signs Date Time Temp Pulse Resp B/P Pulse Ox O2 Delivery O2 Flow Rate FiO2 11/13/16 12:43 96 30 11/13/16 06:00 81 11/13/16 04:00 98.1 17 160/77 170/72 Intake and Output 11/12/16 11/12/16 11/13/16 08:00 16:00 00:00 Intake Total 597 ml 1377 ml 575 ml Output Total 360 ml 950 ml 500 ml Balance 237 ml 427 ml 75 ml Result Diagram: 11/13/16 0340 11/13/16 0340 Imaging Last Impressions Chest X-Ray 11/05/16 0150 Signed Impressions: Service Date/Time: Saturday, November 05, 2016 01:56 - CONCLUSION: No acute cardiopulmonary disease. Deangelo Monsivais MD Lumbar Spine CT 11/05/16 0000 Signed Impressions: Service Date/Time: Saturday, November 05, 2016 04:14 - CONCLUSION: 1. Postop laminectomy at L4 level with fluid within the operative bed and a few scattered gas bubbles may be postsurgical change and possibly resolving hematoma, however abscess is not excluded. No definite signs of osteomyelitis. 2. Neural foramina compromise left L2-L3, bilateral L4-L5. 3. Bilateral masses compromise L5-S1. 4. Residual slight thecal sac stenosis may be present at L3-4 and L4-5. Deangelo Monsivais MD Head CT 11/05/16 0000 Signed Impressions: Service Date/Time: Saturday, November 05, 2016 16:08 - CONCLUSION: 1. No acute intracranial abnormality. Hussain Sandoval MD Abdomen/Pelvis CT 11/05/16 0000 Signed Impressions: Service Date/Time: Saturday, November 05, 2016 16:12 - CONCLUSION: 1. There is residual IV contrast within the kidneys and bladder. 2. There are no findings to indicate a bowel obstruction. 3. The patient is post hysterectomy. Hussain Sandoval MD Objective Remarks Drips: PPN 42cc/hr GENERAL: Elderly female who is orotracheally intubated and sedated SKIN: Warm and dry. HEAD: Atraumatic. Normocephalic. EYES: Pupils 2 mm bilaterally and sluggishly reactive. No scleral icterus. No injection or drainage. ENT: No nasal bleeding or discharge. NECK: Trachea midline. No JVD. CARDIOVASCULAR: Normal rate, regular rhythm. 2/6 systolic murmur left sternal border RESPIRATORY: No accessory muscle use. ET tube in place. Occasional coarse rhonchi. On mechanical ventilation ACV tidal volume 450/rate 15/PEEP 5/FiO2 35% GASTROINTESTINAL: Healed abdominal incision noted. Bowel sounds hypoactive. No tenderness appreciable : Jean-Baptiste in place with light yellow urine output. MUSCULOSKELETAL: Extremities without clubbing, cyanosis, 2+ peripheral edema bilateral upper extremity. No obvious deformities. NEUROLOGICAL: RASS 0. Opens eyes, follows commands with squeeze bilateral hands. Does move bilateral feet including plantar flexion with minimal extension. Urinary Catheter: Yes Jean-Baptiste insert reason: Measure Accurate Output A/P Assessment and Plan Plan by systems: Neurologic: Metabolic encephalopathy secondary to sepsis Lumbar epidural abscess Status post lumbar wound debridement and drainage epidural abscess 11/07/16 (Dr. Melissa) S/P exploration, irrigation and replacement of lumbar drain 11/12/16 (Dr. Melissa) GCS 11T-responsive, following commands Neurochecks every 2 hour per ICU protocol 11/05 CT lumbar spine-postop laminectomy L4 with fluid and scattered bubbles possibly resolving hematoma. Abscess cannot be excluded. Neural foraminotomy not compromise left L2-3, L4-L5, residual thecal sac stenosis may be present L3 L4, L4-L5,B/L mass compromise L5-S1. MRI -post surgical changes with hematoma/seroma ? Abscess L3/L4 and L4/L5. 11/07-postop CSF leak, spinal epidural abscess, postoperative wound dehiscence, pre-existing dural tear with repair, status post debridement lumbar wound dehiscence, evacuation of lumbar abscess indirect repair of pre-existing dural tear Reportedly persistent dural leak noted intraoperatively. Patient is to remain head of bed down/supine per Dr. Melissa. 11/06-Ammonia level 10. EEG 11/06/16moderately slow background consistent with encephalopathy. No epileptiform features. Neurology following, Dr. Thomson NSG following, Dr. Melissa 11/09 IR CSF drain L1-L2 11/12 CT lumbar spine L3-4, L4-5 mass effect. 11/12 Replacement of lumbar drain and evaluation in OR 11/12 CT [id number] cervical moderate left foraminal stenosis, C3-C4 severe left foraminal stenosis, C4-C5 mild bilateral foraminal stenosis mild abutment of ordered, C5-C6 mild cord compression 11/12 CT thoracic-T2 and T5 lesion cannot rule out metastasis 11/13- PT activity initiated for movement of bilateral upper extremity Respiratory: Acute respiratory failure Duo nebs every 6 hours scheduled ACV tidal line 450/rate 15/P5/FiO2 30%. Follow-up ABG as appropriate. Ventilator bundle Maintain head of bed flat per neurosurgery recommendations CT [id number] bilateral pleural effusions, T2 and T5 lesions cannot rule out metastatic disease Cardiovascular: Maintain MAP > 65 mmHg Currently normotensive without vasopressor support FEN/RENAL Acute kidney injury Neurogenic bladder with urinary retention. Hypomagnesemia Hypophosphatemia Hyponatremia Urinary retention noted upon Jean-Baptiste insertion. Jean-Baptiste to remain in place for accurate intake and output assessment. Monitor electrolytes and replace as indicated. IV Hep-Lock Electrolyte replacement per ICU protocol Scheduled doses of phosphorus Na tabs 2 gm BID initiated GI: Moderate protein energy malnutrition PPN Patient position supine, unable to begin tube feeds. PPN at 42 cc/hour initiated with lipid supplementation 11/[address] Hale, no GI issues identified. ID: Severe sepsis-resolved Leukocytosis-resolved Bandemia Antibiotics per infectious disease, Dr. Anayeli Nina Bands 10 HEME: Metastatic Endometrial cancer s/p recent chemotherapy 10/06 Chronic anemia Monitor CBC Endocrine: Low-dose insulin sliding scale at bedside glucose every 6 hours. GI Prophylaxis Pepcid twice a day DVT Prophylaxis -- SCDs. Hold pharmacologic DVT prophylaxis until approved by neurosurgery, patient to return to surgery. ACCESS: Port accessed right chest. Left radial art line placed in OR 11/07 day # 7 Palliative care following This patient remains critically ill with one or more organ systems which are or may become a threat to life. 33 minutes exclusive of separately billable procedures. The patient remains HOB flat per neurosurgery recommendations. Physician Juanita Hutchison MD Nov 13, 2016 14:13
[2016-11-13] MEDS ORDERED: FUROSEMIDE 20 MG/2 ML VIAL IV PUSH ONE (14:15)
[2016-11-13] MEDS: CLINIMIX E 4.25/5 1000 mL- </= 42 mls/hr IV SCH ×3 (19:37)
[2016-11-13] MEDS: FAT EMULSION 20% INJ 250 ML (@10 mls/hr) IV SCH (19:37)
[2016-11-13] MEDS: ceFAZolin 2 GM PREMIX 50 ML IV SCH (23:45)
[2016-11-14] VITALS (14 sets, daily range): BP systolic 108–153; BP diastolic 52–79; PULSE 83–104; RESP 15–22; TEMP 98.6–99.5; O2SAT 92–98
[2016-11-14] MEDS: HYDROmorphone HCL PF 1 MG/ML VIAL IV PUSH PRN ×5 (00:40→21:50)
[2016-11-14] MEDS: RESP: ALBUTEROL 2.5 MG/IPRATROPIUM 0.5 MG NEB (SCH) INH ×2 (03:40→08:16)
[2016-11-14] MEDS: CHLORHEXIDINE GLUCONATE 2 % 1 PACK (2 CLOTHS) TOP SCH (04:00)
[2016-11-14] MEDS: FAMOTIDINE 20 MG/2 ML VIAL IV PUSH SCH ×2 (04:36→14:22)
[2016-11-14 04:54] LABS: AUTOMATED NEUTROPHIL # 7.3 TH/MM3 (1.8-7.7); BASOPHIL % 0.5 % (0.0-2.0); EOSINOPHIL # 0.3 TH/MM3 (0-0.4); EOSINOPHIL % 3.1 % (0.0-4.0); HEMATOCRIT 25.3 % (35.0-46.0); LYMPH % 4.2 % (9.0-44.0); LYMPHOCYTE # 0.4 TH/MM3 (1.0-4.8); MEAN CELL VOLUME 92.5 FL (80.0-100.0); MEAN CORPUSCULAR HGB CONC 35.6 % (32.0-36.0); MONO % 12.6 % (0.0-8.0); NEUT % 79.6 % (16.0-70.0); PLATELET COUNT 248 TH/MM3 (150-450); RED BLOOD COUNT 2.74 MIL/MM3 (4.00-5.30); RED CELL DISTRIBUTION WIDTH 13.8 % (11.6-17.2); WHITE BLOOD COUNT 9.2 TH/MM3 (4.0-11.0)
[2016-11-14 04:59] LABS: HEMO FLAGS AUTO DIFF
[2016-11-14 05:13] LABS: BICARBONATE 29.7 MEQ/L (21.0-32.0); MAGNESIUM 1.6 MG/DL (1.5-2.5); POTASSIUM 3.6 MEQ/L (3.5-5.1)
[2016-11-14] MEDS: INSULIN ASPART SUPPLEMENTAL SCALE SQ SCH ×3 (05:50→18:00)
[2016-11-14] MEDS: ceFAZolin 2 GM PREMIX 50 ML IV SCH ×3 (05:55→21:51)
--- NOTE | 2016-11-14 06:37 | HHI.PR ---
Subjective Remarks pt remains in icu resting quietly responsive Objective Vital Signs Date Time Temp Pulse Resp B/P Pulse Ox O2 Delivery O2 Flow Rate FiO2 11/14/16 06:00 83 11/14/16 04:00 99.0 96 22 108/57 92 126/55 11/14/16 04:00 35 11/14/16 04:00 96 11/14/16 03:43 97 35 11/14/16 02:00 93 11/14/16 01:00 97 30 11/14/16 00:00 90 11/14/16 00:00 99.1 90 15 133/64 97 141/54 11/14/16 00:00 30 11/13/16 22:05 96 30 11/13/16 22:00 99 11/13/16 20:00 30 11/13/16 20:00 113 11/13/16 20:00 99.1 113 18 187/99 96 193/93 11/13/16 19:30 97 30 11/13/16 19:00 91 11/13/16 18:00 87 11/13/16 16:00 98.4 87 18 115/57 96 113/46 11/13/16 16:00 30 11/13/16 16:00 87 11/13/16 14:23 96 30 11/13/16 14:00 82 11/13/16 12:43 96 30 11/13/16 12:00 82 11/13/16 12:00 98.6 82 18 112/54 96 104/44 11/13/16 12:00 30 11/13/16 10:00 79 11/13/16 08:00 84 11/13/16 08:00 99.0 84 18 125/67 100 146/58 11/13/16 08:00 30 11/13/16 07:46 100 30 I/O 11/13/16 11/13/16 11/13/16 11/14/16 11/14/16 11/14/16 07:00 15:00 23:00 07:00 15:00 23:00 Intake Total 1111 ml 790 ml 389 ml 487 ml Output Total 975 ml 881 ml 1394 ml 750 ml Balance 136 ml -91 ml -1005 ml -263 ml Intake IV Total 300 ml 200 ml 64 ml 77 ml TPN/PPN 657 ml 400 ml 154 ml 331 ml Lipid 154 ml 70 ml 111 ml 79 ml Tube Irrigant 120 ml Other 60 ml Output Urine Total 900 ml 800 ml 1300 ml 750 ml Stool Total 0 ml 0 ml Gastric Drainage Total 20 ml Drainage Total 75 ml 81 ml 74 ml # Bowel Movements 0 Result Diagram: 11/14/16 0405 11/14/165 Procedures replacement of CSF drain and dural patch 11/12 evacuation of epidural abscess 11/07 had laminectomy 2 weeks ago Objective Remarks CONSTITUTIONAL/GENERAL: This is an adequately nourished patient, in no apparent distress intubated in icu. TUBES/LINES/DRAINS: SKIN: No jaundice, rashes, or lesions. Skin temperature appropriate. Not diaphoretic. HEAD: Atraumatic. Normocephalic. EYES: follows me . Fundi not examined. ENT: Nose without bleeding or purulent drainage. Throat without visible erythema, exudates, masses, or lesions intubated on vent. NECK: Trachea midline. Supple, nontender. No palpable thyroid enlargement or nodularity. CARDIOVASCULAR: Regular rate and rhythm without murmurs, gallops, or rubs. No JVD. Peripheral pulses symmetric RESPIRATORY/CHEST: Symmetric, unlabored respirations. Clear to auscultation. Breath sounds equal bilaterally. No wheezes, rales, or rhonchi. GASTROINTESTINAL: Abdomen soft, some tenderness nausea resolved nondistended. No hepato-splenomegaly, or palpable masses. No guarding. Bowel sounds present. GENITOURINARY: Without palpable bladder distension. Jean-Baptiste catheter in place. MUSCULOSKELETAL: Extremities without clubbing, cyanosis, or edema. No joint tenderness or effusion noted. No calf tenderness. No mottling or clubbing.lumbar wound with drainage LYMPHATICS: No palpable cervical or supraclavicular adenopathy.mild edema present NEUROLOGICAL: sedated Motor and sensory grossly within normal limits. Follows commands. Moves all extremities. PSYCHIATRIC: No obvious anxiety/depression. Medications and IVs Current Medications Medications (Trade) Dose Ordered Sig/Aleja Route PRN Reason Start Time Stop Time Status Last Admin Dose Admin Acetaminophen (Tylenol Supp) 650 mg Q4H PRN RECTAL FEVER > 101 11/05/16 18:30 11/05/16 18:30 Sodium Chloride (NS Flush) 2 ml UNSCH PRN IV FLUSH FLUSH AFTER USING IV ACCESS 11/06/16 12:30 11/11/16 08:31 Sodium Chloride (NS Flush) 2 ml BID IV FLUSH 11/06/16 21:00 11/13/16 19:46 Acetaminophen (Tylenol) 650 mg Q6H PRN PO PAIN 1-10 AND/OR FEVER >101F 11/06/16 12:30 11/08/16 16:01 Ondansetron HCl (Zofran Inj) 4 mg Q6H PRN IV NAUSEA OR VOMITING 11/06/16 12:30 Bisacodyl (Dulcolax Supp) 10 mg DAILY PRN RECTAL CONSTIPATION 11/06/16 12:30 Miscellaneous Information 1 [id number] XX 11/06/16 12:30 Chlorhexidine Gluconate (Chlorhexidine 2% Cloth) Taper DAILY@04 TOP 11/07/16 04:00 11/03/17 03:59 11/14/16 04:00 Chlorhexidine Gluconate 3 pack 3 pack UNSCH PRN TOP HYGIENIC CARE 11/06/16 12:30 Propofol (Diprivan 1000 Mg/100ml Inj) 100 ml @ 0 mls/hr TITRATE IV 11/07/16 03:45 11/11/16 08:38 Chlorhexidine Gluconate (Peridex 0.12% Liq) 15 ml BID@08,20 MT 11/07/16 08:00 11/13/16 19:46 Dextrose (D50w (Vial) Inj) 25 ml UNSCH PRN IV PUSH HYPOGLYCEMIA-SEE COMMENTS 11/07/16 04:15 Glucagon (Glucagon Inj) 1 mg UNSCH PRN OTHER HYPOGLYCEMIA-SEE COMMENTS 11/07/16 04:15 Insulin Aspart 1 1 Q6H SQ 11/07/16 06:00 11/12/16 17:09 Potassium Chloride 100 ml @ 50 mls/hr Q2H PRN IV-CENTRAL For Potassium 2.8 - 3.2 mEq/L 11/07/16 08:45 11/07/16 23:30 Potassium Chloride 100 ml @ 50 mls/hr Q2H PRN IV For Potassium 2.8 - 3.2 mEq/L 11/07/16 08:45 Potassium Chloride 100 ml @ 25 mls/hr UNSCH PRN IV-CENTRAL For Potassium 3.3 - 3.5 mEq/L 11/07/16 08:45 Potassium Chloride 100 ml @ 50 mls/hr Q2H PRN IV For Potassium 3.3 - 3.5 mEq/L 11/07/16 08:45 11/11/16 08:30 Magnesium Sulfate/ Sodium Chloride (Magnesium Sulfate Inj/NS Inj) 100 ml @ 50 mls/hr UNSCH PRN IV For Magnesium 0.9 - 1.1 mg/dL 11/07/16 08:45 Magnesium Oxide 800 mg 800 mg UNSCH PRN PO For Magnesium 1.2 - 1.6 mg/dL 11/07/16 08:45 11/11/16 08:31 Magnesium Sulfate/ Sodium Chloride (Magnesium Sulfate Inj/NS Inj) 100 ml @ 50 mls/hr UNSCH PRN IV For Magnesium 1.2 - 1.6 mg/dL 11/07/16 08:45 11/12/16 08:42 Potassium Phosphate 2000 mg 2,000 mg Q4H PRN PO For Phosphorus < 2.5 mg/dL 11/07/16 08:45 11/12/16 08:42 Sodium Phosphate/ Sodium Chloride (Sodium Phosphate Inj/NS 250 ml Inj) 250 ml @ 42 mls/hr UNSCH PRN IV For Phosphorus < 2.5 mg/dL 11/07/16 08:45 Potassium Phosphate 2000 mg 2,000 mg UNSCH PRN PO/TUBE SEE LABEL COMMENTS 11/07/16 08:45 Potassium Phosphate/Sodium Chloride (Potassium Phosphate Inj/NS 250 ml Inj) 260 ml @ 42 mls/hr UNSCH PRN IV SEE LABEL COMMENTS 11/07/16 08:45 11/10/16 06:09 Famotidine (Pepcid Inj) 20 mg Q12H IV PUSH 11/07/16 16:00 11/14/16 04:36 Metoprolol Tartrate 2.5 mg 2.5 mg Q6H PRN IV PUSH SYS BP GREATER THAN 160 MMHG 11/08/16 14:45 11/12/16 05:08 Multivitamins 10 ml/Folic Acid 1 mg/Amino Acids/ Electrolytes/ Dextrose 1,010.2 ml @ 42 mls/hr Q24H IV 11/08/16 20:00 11/13/16 19:37 Fat Emulsion Intravenous (Liposyn Iii 20% Inj) 250 ml @ 10 mls/hr Q24H IV 11/08/16 20:00 11/13/16 19:37 Hydromorphone HCl 1 mg 1 mg Q2HR PRN IV PUSH PAIN SCALE 7 TO 10 11/08/16 15:45 11/14/16 06:07 Sodium Chloride (1/2 NS 1000 ml Inj) 1,000 ml @ 0 mls/hr Q0M IV 11/09/16 09:53 Potassium Phosphate (K-Phos) 500 mg DAILY PO 11/10/16 09:00 11/13/16 09:09 Labetalol HCl (Trandate Inj) 10 mg Q1H PRN IV SYS BP GREATER THAN 170 MMHG 11/13/16 01:30 11/13/16 09:09 Sodium Chloride 2 gm 2 gm BID PO 11/13/16 14:00 11/13/16 19:46 Cefazolin Sodium/ Dextrose (Ancef 2 Gm Premix) 50 ml @ 100 mls/hr Q8H IV 11/13/16 22:00 11/14/16 05:55 Assessment and Plan Problem List: (1) Nausea & vomiting Status: Resolved (2) Weakness Status: Acute (3) Leukocytosis Status: Acute Plan: surgical site debrided wbc improved hr and temp controlled blood cultures show gram pos cocci further id pending (4) Hypokalemia Status: Acute Plan: on potassium replacement protocall Assessment and Plan pt progressing slowly csf drain working vss responsive Discussed Condition With family and nursing Nestor Kendrick DO Nov 14, 2016 06:37
[2016-11-14] MEDS: CHLORHEXIDINE 0.12% (ORAL KIT) 15 ML CUP MT SCH ×2 (08:00→21:51)
[2016-11-14 08:43] LABS: BANDS 1 % (0-6); BASOPHILS 1 % (0-2); EOSINOPHILS 2 % (0-4); MYELOCYTES 2 % (0-0); NEUTROPHIL # MANUAL DIFF 7.7 TH/MM3 (1.8-7.7); POLYS (SEG NEUTROPHILS) 81 % (16-70); WBC DIFF SAMPLE 100
[2016-11-14 08:44] LABS: PLATELET ESTIMATE SMEAR NORMAL (NORMAL); PLATELET MORPHOLOGY NORMAL (NORMAL); SCAN/DIFF FINAL DIFF MANUAL
[2016-11-14] MEDS: SODIUM CHLORIDE 1 GRAM TAB PO SCH ×2 (09:00→21:50)
[2016-11-14] MEDS: POTASSIUM PHOSPHATE MONOBASIC 500 MG TAB PO SCH (09:00)
[2016-11-14] MEDS: SODIUM CHLORIDE 0.9% FLUSH 10 ML FLUSH IV FLUSH SCH ×2 (09:00→21:51)
--- NOTE | 2016-11-14 11:29 | HHI.NSPN ---
(Lorraine Swain) Note Status Status: Progress Note (Lorraine Swain) Interval History Interval History 86-year-old female with history of lumbar laminectomy approximately 2 weeks ago in [place]. Patient presents to the emergency room on 11/05/16 with decreasing mental status, GI symptoms, and subsequent opening of the wound with wound dehiscence and purulent drainage. 11/07/16: Patient to surgery on an urgent basis for evacuation of epidural abscess , wound debridement. Patient found to have pre-existing dural tear with CSF leakage which could not be primarily repaired. Indirect repair of dural tear with blood clot, Gelfoam, thrombin, tissue glue and reclosure of wound site. 11/08/16: Patient remains intubated, sedated, head of bed flat. Dressing dry and intact 11/09/16: Patient remains intubated. Slight amount of drainage noted from incision. Lumbar subarachnoid drain placed per interventional radiology 11/10/16: Lumbar subarachnoid drain is not functioning well. Discussed with nursing staff 11/11/16: Intermittent drainage from subarachnoid drain. Wound and dressing dry and the morning. 11/13: pt intubated, POD 1 s/p replacement of lumbar drain with closure of CSF with leak with Dr. Melissa 11/14: intubated, more awake today, moving legs more. (Lorraine Swain) Labs, Micro, & Vital Signs Results Date Time Temp Pulse Resp B/P Pulse Ox O2 Delivery O2 Flow Rate FiO2 11/14/16 08:16 98 30 11/14/16 08:00 30 11/14/16 06:00 83 11/14/16 04:00 99.0 96 22 108/57 92 126/55 11/14/16 04:00 35 11/14/16 04:00 96 11/14/16 03:43 97 35 11/14/16 02:00 93 11/14/16 01:00 97 30 11/14/16 00:00 90 11/14/16 00:00 99.1 90 15 133/64 97 141/54 11/14/16 00:00 30 11/13/16 22:05 96 30 11/13/16 22:00 99 11/13/16 20:00 30 11/13/16 20:00 113 11/13/16 20:00 99.1 113 18 187/99 96 193/93 11/13/16 19:30 97 30 11/13/16 19:00 91 11/13/16 18:00 87 11/13/16 16:00 98.4 87 18 115/57 96 113/46 11/13/16 16:00 30 11/13/16 16:00 87 11/13/16 14:23 96 30 11/13/16 14:00 82 11/13/16 12:43 96 30 11/13/16 12:00 82 11/13/16 12:00 98.6 82 18 112/54 96 104/44 11/13/16 12:00 30 11/14/16 07:00 Intake Total 1666 ml Output Total 3025 ml Balance -1359 ml Constitutional Vital Signs Date Time Temp Pulse Resp B/P Pulse Ox O2 Delivery O2 Flow Rate FiO2 11/14/16 08:16 98 30 11/14/16 08:00 30 11/14/16 06:00 83 11/14/16 04:00 99.0 96 22 108/57 92 126/55 11/14/16 04:00 35 11/14/16 04:00 96 11/14/16 03:43 97 35 11/14/16 02:00 93 11/14/16 01:00 97 30 11/14/16 00:00 90 11/14/16 00:00 99.1 90 15 133/64 97 141/54 11/14/16 00:00 30 11/13/16 22:05 96 30 11/13/16 22:00 99 11/13/16 20:00 30 11/13/16 20:00 113 11/13/16 20:00 99.1 113 18 187/99 96 193/93 11/13/16 19:30 97 30 11/13/16 19:00 91 11/13/16 18:00 87 11/13/16 16:00 98.4 87 18 115/57 96 113/46 11/13/16 16:00 30 11/13/16 16:00 87 11/13/16 14:23 96 30 11/13/16 14:00 82 11/13/16 12:43 96 30 11/13/16 12:00 82 11/13/16 12:00 98.6 82 18 112/54 96 104/44 11/13/16 12:00 30 11/14/16 07:00 Intake Total 1666 ml Output Total 3025 ml Balance -1359 ml (Lorraine Swain) Review of Systems/Exam Exam Intubated. More awake today, alert follows few simple commands. CN: pupils equal, tracking with eyes, Motor: wiggling toes and moved legs 2/5 bilaterally to command, on UE soft restraints, squeezed with right hand Head of bed is flat Lumbar drain draining thierry CSF (Lorraine Swain) Medications Current Medications Current Medications Medications (Trade) Dose Ordered Sig/Aleja Route PRN Reason Start Time Stop Time Status Last Admin Dose Admin Acetaminophen (Tylenol Supp) 650 mg Q4H PRN RECTAL FEVER > 101 11/05/16 18:30 11/05/16 18:30 Sodium Chloride (NS Flush) 2 ml UNSCH PRN IV FLUSH FLUSH AFTER USING IV ACCESS 11/06/16 12:30 11/11/16 08:31 Sodium Chloride (NS Flush) 2 ml BID IV FLUSH 11/06/16 21:00 11/13/16 19:46 Acetaminophen (Tylenol) 650 mg Q6H PRN PO PAIN 1-10 AND/OR FEVER >101F 11/06/16 12:30 11/08/16 16:01 Ondansetron HCl (Zofran Inj) 4 mg Q6H PRN IV NAUSEA OR VOMITING 11/06/16 12:30 Bisacodyl (Dulcolax Supp) 10 mg DAILY PRN RECTAL CONSTIPATION 11/06/16 12:30 Miscellaneous Information 1 [id number] XX 11/06/16 12:30 Chlorhexidine Gluconate (Chlorhexidine 2% Cloth) Taper DAILY@04 TOP 11/07/16 04:00 11/03/17 03:59 11/14/16 04:00 Chlorhexidine Gluconate 3 pack 3 pack UNSCH PRN TOP HYGIENIC CARE 11/06/16 12:30 Propofol (Diprivan 1000 Mg/100ml Inj) 100 ml @ 0 mls/hr TITRATE IV 11/07/16 03:45 11/11/16 08:38 Chlorhexidine Gluconate (Peridex 0.12% Liq) 15 ml BID@08,20 MT 11/07/16 08:00 11/13/16 19:46 Dextrose (D50w (Vial) Inj) 25 ml UNSCH PRN IV PUSH HYPOGLYCEMIA-SEE COMMENTS 11/07/16 04:15 Glucagon (Glucagon Inj) 1 mg UNSCH PRN OTHER HYPOGLYCEMIA-SEE COMMENTS 11/07/16 04:15 Insulin Aspart 1 1 Q6H SQ 11/07/16 06:00 11/12/16 17:09 Potassium Chloride 100 ml @ 50 mls/hr Q2H PRN IV-CENTRAL For Potassium 2.8 - 3.2 mEq/L 11/07/16 08:45 11/07/16 23:30 Potassium Chloride 100 ml @ 50 mls/hr Q2H PRN IV For Potassium 2.8 - 3.2 mEq/L 11/07/16 08:45 Potassium Chloride 100 ml @ 25 mls/hr UNSCH PRN IV-CENTRAL For Potassium 3.3 - 3.5 mEq/L 11/07/16 08:45 Potassium Chloride 100 ml @ 50 mls/hr Q2H PRN IV For Potassium 3.3 - 3.5 mEq/L 11/07/16 08:45 11/11/16 08:30 Magnesium Sulfate/ Sodium Chloride (Magnesium Sulfate Inj/NS Inj) 100 ml @ 50 mls/hr UNSCH PRN IV For Magnesium 0.9 - 1.1 mg/dL 11/07/16 08:45 Magnesium Oxide 800 mg 800 mg UNSCH PRN PO For Magnesium 1.2 - 1.6 mg/dL 11/07/16 08:45 11/11/16 08:31 Magnesium Sulfate/ Sodium Chloride (Magnesium Sulfate Inj/NS Inj) 100 ml @ 50 mls/hr UNSCH PRN IV For Magnesium 1.2 - 1.6 mg/dL 11/07/16 08:45 11/12/16 08:42 Potassium Phosphate 2000 mg 2,000 mg Q4H PRN PO For Phosphorus < 2.5 mg/dL 11/07/16 08:45 11/12/16 08:42 Sodium Phosphate/ Sodium Chloride (Sodium Phosphate Inj/NS 250 ml Inj) 250 ml @ 42 mls/hr UNSCH PRN IV For Phosphorus < 2.5 mg/dL 11/07/16 08:45 Potassium Phosphate 2000 mg 2,000 mg UNSCH PRN PO/TUBE SEE LABEL COMMENTS 11/07/16 08:45 Potassium Phosphate/Sodium Chloride (Potassium Phosphate Inj/NS 250 ml Inj) 260 ml @ 42 mls/hr UNSCH PRN IV SEE LABEL COMMENTS 11/07/16 08:45 11/10/16 06:09 Famotidine (Pepcid Inj) 20 mg Q12H IV PUSH 11/07/16 16:00 11/14/16 04:36 Metoprolol Tartrate 2.5 mg 2.5 mg Q6H PRN IV PUSH SYS BP GREATER THAN 160 MMHG 11/08/16 14:45 11/12/16 05:08 Multivitamins 10 ml/Folic Acid 1 mg/Amino Acids/ Electrolytes/ Dextrose 1,010.2 ml @ 42 mls/hr Q24H IV 11/08/16 20:00 11/13/16 19:37 Fat Emulsion Intravenous (Liposyn Iii 20% Inj) 250 ml @ 10 mls/hr Q24H IV 11/08/16 20:00 11/13/16 19:37 Hydromorphone HCl 1 mg 1 mg Q2HR PRN IV PUSH PAIN SCALE 7 TO 10 11/08/16 15:45 11/14/16 06:07 Sodium Chloride (1/2 NS 1000 ml Inj) 1,000 ml @ 0 mls/hr Q0M IV 11/09/16 09:53 Potassium Phosphate (K-Phos) 500 mg DAILY PO 11/10/16 09:00 11/13/16 09:09 Labetalol HCl (Trandate Inj) 10 mg Q1H PRN IV SYS BP GREATER THAN 170 MMHG 11/13/16 01:30 11/13/16 09:09 Sodium Chloride 2 gm 2 gm BID PO 11/13/16 14:00 11/13/16 19:46 Cefazolin Sodium/ Dextrose (Ancef 2 Gm Premix) 50 ml @ 100 mls/hr Q8H IV 11/13/16 22:00 11/14/16 05:55 (Lorraine Swain) Medical Decision Making MDM Remarks 86 y/o female s/p replacement of lumbar drain with closure of CSF leak, irrigation and debridement of lumbar wound by Dr. Melissa 11/12/16 (Lorraine Swain) Plan Plan Remarks cont keep HOB flat, log roll only cont lumbar draining per protocol cont neuro checks dw daughter bedside (Lorraine Swain) Attending Statement The exam, history, and the medical decision-making described in the above note were completed with the assistance of the mid-level provider. I reviewed and agree with the findings presented. I attest that I had a [id number] encounter with the patient on the same day, and personally performed and documented my assessment and findings in the medical record. (Baudilio Mckeon MD) Lorraine Swain Nov 14, 2016 11:29 Baudilio Mckeon MD Nov 14, 2016 18:30
[2016-11-14] MEDS ORDERED: PHARMACY ORDERED LAB ONE (11:45)
--- NOTE | 2016-11-14 15:01 | HHI.CCPN ---
Subjective Remarks/Hospital Course This 86 year-old woman who presents to the emergency department complaining of nausea vomiting, low back pain, and chills on 11/05/2016. She has a history of metastatic endometrial cancer diagnosed 5 years ago initially, as well as chronic back pain. The chronic back pain preceded the malignancy. Most recent PET scan as reported by daughter revealed multiple bony metastasis to include skull, and right upper arm. She underwent an L4-L5 laminectomy about [facility] weeks ago [facility] . Prior to her surgery , the patient was extremely physically active without any ambulation difficulties.She was doing well initially but over the past several days complained of increased nausea vomiting, increased low back pain, and chills. Upon admission incision has not had any drainage or bleeding,and she denied any urinary symptoms. The patient was admitted to [facility] on 11/05/2016, she subsequently has begun to have leukocytosis, urinary retention and noted drainage from lumbar laminectomy surgical site. Lumbar CT scan revealed postop laminectomy L4 with fluid and scattered bubbles possibly resolving hematoma, abscess could not be excluded. ID and Neurosurgery was consulted.Critical care medicine is consult that for patients noted sepsis, and progressive weakness bilateral lower extremities. Subjective: 11/07 Seen upon return from the OR following lumbar wound debridement and evacuation of epidural abscess by Dr. Melissa. Patient is to remain intubated per Dr. Melissa as she must be maintained with HOB flat due to dural leak (but rotate side to side q2 hours). At present she is not on continuous sedation, but is unresponsive to deep noxious stimuli upon return from general anesthesia. Reportedly large amount of respiratory secretions noted upon intubation by anesthesia. Routine airway per documentation. She received 1800 crystalloid intraoperatively. EBL 20 ml. 11/08: Afebrile. Patient remains on propofol infusion, moving bilateral upper and lower extremities wiggling toes and moving upper extremities. The patient was inadvertently placed on fentanyl infusion last night for purported pain. Fentanyl infusion discontinued, patient on when necessary pain medicine now currently following commands and denies pain. Leukocytosis resolved, the patient continues on Flagyl, Vancomycin and Ceptazidime per ID Dr. Nina. The patient remains flat in bed, supine position in order to begin nutrition PPN was initiated this a.m.. Extensive discussion with Dr. Melissa and Dr. Nina and palliative care consulted with planned discussion with family today. 11/09: Leukocytosis resolved. Wound culture was noted staph aureus. Patient was noted to have hypophosphatemia and hypomagnesemia ischemia which are being currently replaced. PPN was initiated for nutritional support secondary to put required positioning. Palliative care was consulted to discuss goals of care, currently aggressive treatment management continued per family request. 11/10: Afebrile .No acute events overnight. Patient underwent placement of CSF drain yesterday by interventional radiology. Patient's head of the bed to remain flat until Tuesday. The patient continues to have low phosphate and was placed on scheduled doses of phosphorus yesterday. Family requesting medication administration of vitamin C secondary to a small non-scientific research study that was published recently. Explained to family that it wasn't in evidence-based full research study performed but a small study without any level of evidence for implementation in the [place] at this time. Vitamin C is not indicated at this time. The family was educated by neurosurgery that the patient may have to possibly have surgery. 11/11 Tmax 99.0. The patient's CSF lumbar drain reevaluated by Dr. Melissa last evening, now draining fluid. No further drainage from surgical site. The patient remains in a supine position, PPN infusing for nutritional support. Her electrolytes continually being replaced per protocol. The patient remains on low-dose propofol infusion. Patient responsive following commands. 11/12: Patient was noted not to be moving upper extremities on command. Patient off sedation greater than 24 hours. MRI obtained today. Patient will return to surgery with Dr. Melissa. Lumbar drain dressing dry, with CSF draining. 11/13: The patient returned to neurosurgery yesterday, new lumbar drain placed. Minimal movement of bilateral upper extremities noted this a.m.. Patient moving hands minimally lifting arms, wiggling fingers and toes. 11/14:Afebrile: No acute changes overnight. Patient responsive to family, follows commands. The patient continues to be in supine position only to be log rolled secondary. Lumbar drain patent. Objective Vital Signs Date Time Temp Pulse Resp B/P Pulse Ox O2 Delivery O2 Flow Rate FiO2 11/14/16 08:16 98 30 11/14/16 06:00 83 11/14/16 04:00 99.0 22 108/57 126/55 Intake and Output 11/13/16 11/13/16 11/14/16 08:00 16:00 00:00 Intake Total 536 ml 790 ml 389 ml Output Total 475 ml 881 ml 1394 ml Balance 61 ml -91 ml -1005 ml Result Diagram: 11/14/16 0405 11/14/16 0405 Imaging Last Impressions Chest X-Ray 11/05/16 0150 Signed Impressions: Service Date/Time: Saturday, November 05, 2016 01:56 - CONCLUSION: No acute cardiopulmonary disease. Deangelo Monsivais MD Lumbar Spine CT 11/05/16 0000 Signed Impressions: Service Date/Time: Saturday, November 05, 2016 04:14 - CONCLUSION: 1. Postop laminectomy at L4 level with fluid within the operative bed and a few scattered gas bubbles may be postsurgical change and possibly resolving hematoma, however abscess is not excluded. No definite signs of osteomyelitis. 2. Neural foramina compromise left L2-L3, bilateral L4-L5. 3. Bilateral masses compromise L5-S1. 4. Residual slight thecal sac stenosis may be present at L3-4 and L4-5. Deangelo Monsivais MD Head CT 11/05/16 0000 Signed Impressions: Service Date/Time: Saturday, November 05, 2016 16:08 - CONCLUSION: 1. No acute intracranial abnormality. Hussain Sandoval MD Abdomen/Pelvis CT 11/05/16 0000 Signed Impressions: Service Date/Time: Saturday, November 05, 2016 16:12 - CONCLUSION: 1. There is residual IV contrast within the kidneys and bladder. 2. There are no findings to indicate a bowel obstruction. 3. The patient is post hysterectomy. Hussain Sandoval MD Objective Remarks Drips: PPN 42cc/hr GENERAL: Elderly female who is orotracheally intubated and sedated SKIN: Warm and dry. HEAD: Atraumatic. Normocephalic. EYES: Pupils 2 mm bilaterally and sluggishly reactive. No scleral icterus. No injection or drainage. ENT: No nasal bleeding or discharge. NECK: Trachea midline. No JVD. CARDIOVASCULAR: Normal rate, regular rhythm. 2/6 systolic murmur left sternal border RESPIRATORY: No accessory muscle use. ET tube in place. Occasional coarse rhonchi. On mechanical ventilation ACV tidal volume 450/rate 15/PEEP 5/FiO2 35% GASTROINTESTINAL: Healed abdominal incision noted. Bowel sounds hypoactive. No tenderness appreciable : Jean-Baptiste in place with light yellow urine output. MUSCULOSKELETAL: Extremities without clubbing, cyanosis, 2+ peripheral edema bilateral upper extremity. No obvious deformities. NEUROLOGICAL: RASS 0. Opens eyes, follows commands with squeeze bilateral hands , moving upper arms flexion and extension,. Does move bilateral feet including plantar flexion with minimal extension. Urinary Catheter: Yes Jean-Baptiste insert reason: Measure Accurate Output A/P Assessment and Plan Plan by systems: Neurologic: Metabolic encephalopathy secondary to sepsis Lumbar epidural abscess Status post lumbar wound debridement and drainage epidural abscess 11/07/16 (Dr. Melissa) S/P exploration, irrigation and replacement of lumbar drain 11/12/16 (Dr. Melissa) GCS 11T-responsive, following commands Neurochecks every 2 hour per ICU protocol 11/05 CT lumbar spine-postop laminectomy L4 with fluid and scattered bubbles possibly resolving hematoma. Abscess cannot be excluded. Neural foraminotomy not compromise left L2-3, L4-L5, residual thecal sac stenosis may be present L3 L4, L4-L5,B/L mass compromise L5-S1. MRI -post surgical changes with hematoma/seroma ? Abscess L3/L4 and L4/L5. 11/07-postop CSF leak, spinal epidural abscess, postoperative wound dehiscence, pre-existing dural tear with repair, status post debridement lumbar wound dehiscence, evacuation of lumbar abscess indirect repair of pre-existing dural tear Reportedly persistent dural leak noted intraoperatively. Patient is to remain head of bed down/supine per Dr. Melissa. 11/06-Ammonia level 10. EEG 11/06/16moderately slow background consistent with encephalopathy. No epileptiform features. Neurology following, Dr. Thomson NSG following, Dr. Melissa 11/09 IR CSF drain L1-L2 11/12 CT lumbar spine L3-4, L4-5 mass effect. 11/12 Replacement of lumbar drain and evaluation in OR 11/12 CT [id number] cervical moderate left foraminal stenosis, C3-C4 severe left foraminal stenosis, C4-C5 mild bilateral foraminal stenosis mild abutment of ordered, C5-C6 mild cord compression 11/12 CT thoracic-T2 and T5 lesion cannot rule out metastasis 11/13- PT activity initiated for movement of bilateral upper extremity Respiratory: Acute respiratory failure Duo nebs every 6 hours scheduled ACV tidal line 450/rate 15/P5/FiO2 30%. Follow-up ABG as appropriate. Ventilator bundle Maintain head of bed flat per neurosurgery recommendations CT [id number] bilateral pleural effusions, T2 and T5 lesions cannot rule out metastatic disease Cardiovascular: Maintain MAP > 65 mmHg Currently normotensive without vasopressor support FEN/RENAL Acute kidney injury Neurogenic bladder with urinary retention. Hypomagnesemia Hypophosphatemia Hyponatremia Urinary retention noted upon Jean-Baptiste insertion. Jean-Baptiste to remain in place for accurate intake and output assessment. Monitor electrolytes and replace as indicated. IV Hep-Lock Electrolyte replacement per ICU protocol Scheduled doses of phosphorus Na tabs 2 gm BID initiated 11/12 GI: Moderate protein energy malnutrition PPN Patient position supine, unable to begin tube feeds. PPN at 42 cc/hour initiated with lipid supplementation 11/[address] Hale, no GI issues identified. ID: Severe sepsis-resolved Leukocytosis-resolved Bandemia Antibiotics per infectious disease, Dr. Anayeli Nina HEME: Metastatic Endometrial cancer s/p recent chemotherapy 10/06 Chronic anemia Monitor CBC Endocrine: Low-dose insulin sliding scale at bedside glucose every 6 hours. GI Prophylaxis Pepcid twice a day DVT Prophylaxis -- SCDs. Hold pharmacologic DVT prophylaxis defer to neurosurgery when to initiate. ACCESS: Port accessed right chest. Left radial art line placed in OR 11/07 day # 7 Palliative care following This patient remains critically ill with one or more organ systems which are or may become a threat to life. 30 minutes exclusive of separately billable procedures. The patient remains HOB flat per neurosurgery recommendations. Physician Juanita Hutchison MD Nov 14, 2016 15:01
[2016-11-14] MEDS: CLINIMIX E 4.25/5 1000 mL- </= 42 mls/hr IV SCH ×3 (18:45)
[2016-11-14] MEDS: FAT EMULSION 20% INJ 250 ML (@10 mls/hr) IV SCH (18:45)
[2016-11-15] VITALS (18 sets, daily range): BP systolic 104–158; BP diastolic 47–69; PULSE 87–103; RESP 14–17; TEMP 98.3–100.1; O2SAT 95–100
[2016-11-15] MEDS: HYDROmorphone HCL PF 1 MG/ML VIAL IV PUSH PRN ×7 (01:43→22:00)
[2016-11-15] MEDS: FAMOTIDINE 20 MG/2 ML VIAL IV PUSH SCH ×2 (03:51→15:38)
[2016-11-15] MEDS: CHLORHEXIDINE GLUCONATE 2 % 1 PACK (2 CLOTHS) TOP SCH (04:00)
[2016-11-15 05:27] LABS: HEMATOCRIT 27.3 % (35.0-46.0); MEAN CELL VOLUME 93.1 FL (80.0-100.0); MEAN CORPUSCULAR HEMOGLOBIN 32.5 PG (27.0-34.0); MEAN CORPUSCULAR HGB CONC 34.9 % (32.0-36.0); PLATELET COUNT 306 TH/MM3 (150-450); RED BLOOD COUNT 2.94 MIL/MM3 (4.00-5.30); REVIEW FLAG FINAL
[2016-11-15 05:40] LABS: BICARBONATE 29.4 MEQ/L (21.0-32.0); MAGNESIUM 1.7 MG/DL (1.5-2.5); POTASSIUM 3.7 MEQ/L (3.5-5.1)
[2016-11-15] MEDS: INSULIN ASPART SUPPLEMENTAL SCALE SQ SCH ×5 (05:45→23:34)
[2016-11-15] MEDS: ceFAZolin 2 GM PREMIX 50 ML IV SCH ×3 (06:00→21:02)
--- NOTE | 2016-11-15 06:22 | RADRPT ---
EXAM DATE/TIME: 11/15/2016 04:15 [place] COMPARISON: CHEST SINGLE AP, November 11, 2016, 2:46. INDICATIONS : Shortness of breath. possible pulmonary disease. MEDICAL HISTORY : Carcinoma, bone. SURGICAL HISTORY : Appendectomy. Hysterectomy. Tonsillectomy. ENCOUNTER: Subsequent ACUITY: 1 week PAIN SCORE: Non-responsive. LOCATION: Bilateral chest FINDINGS: A single view of the chest demonstrates the endotracheal tube, nasogastric tube and right-sided Infus e-a-Port catheter are all in good position. Mild pulmonary hilar vascular congestion. No pneumothorax .. The cardiomediastinal contours are unremarkable. Osseous structures are intact. CONCLUSION: Tubes and catheters are in good position. Mild pulmonary vascular congestion persists Jimi Schrader MD on November 15, 2016 at 6:20 Board Certified Radiologist. This report was verified electronically.
[2016-11-15] MEDS: SODIUM CHLORIDE 1 GRAM TAB PO SCH ×2 (08:41→21:02)
[2016-11-15] MEDS: POTASSIUM PHOSPHATE MONOBASIC 500 MG TAB PO SCH (08:42)
[2016-11-15] MEDS: SODIUM CHLORIDE 0.9% FLUSH 10 ML FLUSH IV FLUSH SCH ×2 (08:43→19:41)
[2016-11-15] MEDS: CHLORHEXIDINE 0.12% (ORAL KIT) 15 ML CUP MT SCH ×2 (08:48→19:41)
--- NOTE | 2016-11-15 11:28 | HHI.NSPN ---
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 Patient presents to the emergency room on 11/05/16 with decreasing mental status, GI symptoms, and subsequent opening of the wound with wound dehiscence and purulent drainage. 11/07/16: Patient to surgery on an urgent basis for evacuation of epidural abscess , wound debridement. Patient found to have pre-existing dural tear with CSF leakage which could not be primarily repaired. Indirect repair of dural tear with blood clot, Gelfoam, thrombin, tissue glue and reclosure of wound site. 11/08/16: Patient remains intubated, sedated, head of bed flat. Dressing dry and intact 11/09/16: Patient remains intubated. Slight amount of drainage noted from incision. Lumbar subarachnoid drain placed per interventional radiology 11/10/16: Lumbar subarachnoid drain is not functioning well. Discussed with nursing staff 11/11/16: Intermittent drainage from subarachnoid drain. Wound and dressing dry and the morning. 11/12/16: To OR for: 1. Exploration and debridement previous L4 5 wound site. 2. Revision indirect closure right L4 5 lateral dural tear 3. Placement of lumbar subarachnoid drain, removal previous subarachnoid drain 11/13: pt intubated, POD 1 s/p replacement of lumbar drain with closure of CSF with leak with Dr. Melissa 11/14: intubated, more awake today, moving legs more. 11/15: POD # 3, patient remains intubated, opens eyes spontaneously, following commands, lumbar drain still in place, daughter reports that patient did attempt to reach for ETT yesterday with both upper extremities (Noah Ford) Labs, Micro, & Vital Signs Results Allergies Coded Allergies Type Severity Reaction Last Updated Verified Penicillin Allergy Severe Rash 11/06/16 Yes Recent Impressions Chest X-Ray 11/15/16 0600 Signed Impressions: Service Date/Time: Tuesday, November 15, 2016 04:15 - CONCLUSION: Tubes and catheters are in good position. Mild pulmonary vascular congestion persists Jimi Schrader MD ///// 06:00 18:00 06:00 18:00 06:00 18:00 Intake Total 575 ml 1326 ml 876 ml 60 ml 1046 ml Output Total 500 ml 1356 ml 2144 ml 420 ml 628 ml Balance 75 ml -30 ml -1268 ml -360 ml 418 ml Intake IV Total 100 ml 400 ml 141 ml 0 ml 248 ml TPN/PPN 385 ml 672 ml 485 ml 60 ml 596 ml Lipid 90 ml 134 ml 190 ml 142 ml Tube Irrigant 120 ml Other 60 ml 60 ml Output Urine Total 500 ml 1200 ml 2050 ml 350 ml 490 ml Stool Total 0 ml 0 ml 0 ml Gastric Drainage Total 20 ml 0 ml Drainage Total 156 ml 74 ml 70 ml 138 ml # Bowel Movements 0 Laboratory Tests Test 11/12/16 11/12/16 11/13/16 11/14/16 16:45 21:57 03:40 04:05 White Blood Count 9.2 TH/MM3 10.4 TH/MM3 9.2 TH/MM3 Red Blood Count 3.08 MIL/MM3 2.95 MIL/MM3 2.74 MIL/MM3 Hemoglobin 9.7 GM/DL 9.4 GM/DL 9.0 GM/DL Hematocrit 28.5 % 27.1 % 25.3 % Mean Corpuscular Volume 92.7 FL 92.0 FL 92.5 FL Mean Corpuscular Hemoglobin 31.4 PG 31.8 PG 33.0 PG Mean Corpuscular Hemoglobin 33.9 % 34.6 % 35.6 % Concent Red Cell Distribution Width 13.5 % 13.5 % 13.8 % Platelet Count 239 TH/MM3 234 TH/MM3 248 TH/MM3 Mean Platelet Volume 8.7 FL 8.7 FL 8.9 FL Neutrophils (%) (Auto) 81.4 % 85.3 % 79.6 % Lymphocytes (%) (Auto) 3.2 % 2.5 % 4.2 % Monocytes (%) (Auto) 11.2 % 9.4 % 12.6 % Eosinophils (%) (Auto) 3.8 % 2.7 % 3.1 % Basophils (%) (Auto) 0.4 % 0.1 % 0.5 % Neutrophils # (Auto) 7.5 TH/MM3 8.9 TH/MM3 7.3 TH/MM3 Lymphocytes # (Auto) 0.3 TH/MM3 0.3 TH/MM3 0.4 TH/MM3 Monocytes # (Auto) 1.0 TH/MM3 1.0 TH/MM3 1.2 TH/MM3 Eosinophils # (Auto) 0.3 TH/MM3 0.3 TH/MM3 0.3 TH/MM3 Basophils # (Auto) 0.0 TH/MM3 0.0 TH/MM3 0.0 TH/MM3 CBC Comment AUTO DIFF AUTO DIFF AUTO DIFF Differential Total Cells 100 100 100 Counted Neutrophils % (Manual) 82 % 81 % 81 % Band Neutrophils % 2 % 10 % 1 % Lymphocytes % 1 % 1 % 3 % Monocytes % 6 % 6 % 10 % Eosinophils % 4 % 2 % Basophils % 1 % 1 % 1 % Neutrophils # (Manual) 8.1 TH/MM3 9.6 TH/MM3 7.7 TH/MM3 Myelocytes 4 % 2 % Differential Comment FINAL DIFF FINAL DIFF FINAL DIFF MANUAL MANUAL MANUAL Platelet Estimate NORMAL NORMAL NORMAL Platelet Morphology Comment NORMAL ENLARGED NORMAL Prothrombin Time 11.2 SEC Prothromb Time International 1.0 RATIO Ratio Blood Type O POSITIVE Antibody Screen NEGATIVE CSF Volume (Tube 1) 2.0 ML CSF Supernatant Color (tube 1) SLIGHTLY XANTHOCHROM CSF Gross Blood (Tube 1) TRACE CSF WBC (Tube 1) 9 /MM3 CSF RBC (Tube 1) 360 /MM3 CSF Neutrophils 62 % CSF Lymphocytes 30 % CSF Monocytes 8 % Metamyelocytes 1 % Sodium Level 132 MEQ/L 134 MEQ/L Potassium Level 3.8 MEQ/L 3.6 MEQ/L Chloride Level 96 MEQ/L 96 MEQ/L Carbon Dioxide Level 28.4 MEQ/L 29.7 MEQ/L Anion Gap 8 MEQ/L 8 MEQ/L Blood Urea Nitrogen 16 MG/DL 13 MG/DL Creatinine 0.26 MG/DL 0.29 MG/DL Estimat Glomerular Filtration 249 ML/MIN 220 ML/MIN Rate Random Glucose 152 MG/DL 133 MG/DL Calcium Level 7.9 MG/DL 8.3 MG/DL Phosphorus Level 2.4 MG/DL 2.3 MG/DL Magnesium Level 1.6 MG/DL 1.6 MG/DL Red Cell Morphology Comment NORMAL Test 11/15/16 04:00 White Blood Count 11.0 TH/MM3 Red Blood Count 2.94 MIL/MM3 Hemoglobin 9.5 GM/DL Hematocrit 27.3 % Mean Corpuscular Volume 93.1 FL Mean Corpuscular Hemoglobin 32.5 PG Mean Corpuscular Hemoglobin 34.9 % Concent Red Cell Distribution Width 14.0 % Platelet Count 306 TH/MM3 Mean Platelet Volume 9.0 FL Sodium Level 132 MEQ/L Potassium Level 3.7 MEQ/L Chloride Level 95 MEQ/L Carbon Dioxide Level 29.4 MEQ/L Anion Gap 8 MEQ/L Blood Urea Nitrogen 17 MG/DL Creatinine 0.39 MG/DL Estimat Glomerular Filtration 156 ML/MIN Rate Random Glucose 136 MG/DL Calcium Level 8.3 MG/DL Phosphorus Level 2.6 MG/DL Magnesium Level 1.7 MG/DL Procedure Category Date Status Time Gadodiamide Pf Inj MED 11/12/16 Complete (Omniscan Pf Inj) 12:50 Complete Blood Count LAB 11/12/16 Complete With Diff 16:40 Prothrombin Time / LAB 11/12/16 Complete Inr (Pt) 16:40 Type And Screen BBK 11/12/16 Complete 16:40 Vancomycin Inj MED 11/12/16 Complete (Vancomycin Inj) 19:05 Thrombin Top Soln MED 11/12/16 Complete (Thrombin Top Soln) 19:05 Gelfoam 100 Top MED 11/12/16 Complete (Gelfoam 100 Top) 19:06 Lidocai-Epi MED 11/12/16 Complete 1%-1:100,000 Inj 19:06 Gentamicin Inj MED 11/12/16 Complete (Gentamicin Inj) 19:06 Thrombin Top Soln MED 11/12/16 Complete (Thrombin Top Soln) 21:00 Vancomycin Inj MED 11/12/16 Complete (Vancomycin Inj) 22:16 Fluoroscopy,Port Up RADDIAG 11/12/16 Taken To 1 Hr Spine, Lumbar - Ap RADDIAG 11/12/16 Resulted Only Wound Fungus Culture HUGO 11/12/16 In Process And Stain 23:37 Wound Afb Culture And HUGO 11/12/16 In Process Stain 23:37 Wound Culture And HUGO 11/12/16 In Process Gram Stain 23:37 Csf Cell Count + LAB 11/12/16 Complete Differential 21:57 Labetalol Inj MED 11/13/16 In Process (Trandate Inj) 01:30 Drain, Lumbar Set SPD 11/13/16 Logged EA 03:57 Bag, Replcmt Lumbar SPD 11/13/16 Logged Drain Ea 07:10 Csf Culture And Gram HUGO 11/12/16 In Process Stain 21:57 Oral Culture HUGO 11/12/16 In Process 21:57 Wound Afb Culture And HUGO 11/12/16 In Process Stain 21:57 Sodium Chloride MED 11/13/16 In Process (Sodium Chloride) 14:00 Complete Blood Count LAB 11/14/16 Complete With Diff 06:00 Magnesium (Mg) LAB 11/14/16 Complete 06:00 Phosphorus (Po4) LAB 11/14/16 Complete 06:00 Basic Metabolic Panel LAB 11/14/16 Complete (Bmp) 06:00 Furosemide Inj (Lasix MED 11/13/16 Complete Inj) 14:15 Consult Pt Eval & PT 11/13/16 Logged Treat 14:03 Cefazolin 2 Gm Premix MED 11/13/16 In Process (Ancef 2 Gm Premix 22:00 Basic Metabolic Panel LAB 11/15/16 Complete (Bmp) 06:00 Cbc No Diff, Includes LAB 11/15/16 Complete Plts 06:00 Magnesium (Mg) LAB 11/15/16 Complete 06:00 Phosphorus (Po4) LAB 11/15/16 Complete 06:00 Chest, Single Ap RADDIAG 11/15/16 Resulted 06:00 Bag, Replcmt Lumbar SPD 11/15/16 Logged Drain Ea 01:57 Vital Signs Date Time Temp Pulse Resp B/P Pulse Ox O2 Delivery O2 Flow Rate FiO2 11/15/16 07:55 100 30 11/15/16 07:00 15 11/15/16 06:00 93 11/15/16 04:00 99.1 95 15 148/68 98 158/64 11/15/16 04:00 93 11/15/16 04:00 30 11/15/16 04:00 95 11/15/16 03:50 98 30 11/15/16 02:00 95 11/15/16 01:12 95 30 11/15/16 00:00 30 11/15/16 00:00 100 11/15/16 00:00 100.1 100 14 141/69 97 153/62 11/14/16 22:41 98 30 11/14/16 22:00 98 11/14/16 20:00 104 11/14/16 20:00 96 30 11/14/16 20:00 30 11/14/16 20:00 99.0 104 15 135/70 95 145/60 11/14/16 16:00 30 11/14/16 16:00 99.5 104 19 129/73 94 110/79 11/14/16 15:52 94 35 11/14/16 12:00 99.0 98 15 125/59 97 121/52 11/14/16 12:00 30 11/14/16 08:16 98 30 11/14/16 08:00 30 11/14/16 08:00 98.6 95 15 148/72 98 153/62 11/14/16 06:00 83 11/14/16 04:00 99.0 96 22 108/57 92 126/55 11/14/16 04:00 35 11/14/16 04:00 96 11/14/16 03:43 97 35 11/14/16 02:00 93 11/14/16 01:00 97 30 11/14/16 00:00 90 11/14/16 00:00 99.1 90 15 133/64 97 141/54 11/14/16 00:00 30 11/13/16 22:05 96 30 11/13/16 22:00 99 11/13/16 20:00 30 11/13/16 20:00 113 11/13/16 20:00 99.1 113 18 187/99 96 193/93 11/13/16 19:30 97 30 11/13/16 19:00 91 11/13/16 18:00 87 11/13/16 16:00 98.4 87 18 115/57 96 113/46 11/13/16 16:00 30 11/13/16 16:00 87 11/13/16 14:23 96 30 11/13/16 14:00 82 11/13/16 12:43 96 30 11/13/16 12:00 82 11/13/16 12:00 98.6 82 18 112/54 96 104/44 11/13/16 12:00 30 11/13/16 10:00 79 11/13/16 08:00 84 11/13/16 08:00 99.0 84 18 125/67 100 146/58 11/13/16 08:00 30 11/13/16 07:46 100 30 11/13/16 06:00 81 11/13/16 04:15 100 30 11/13/16 04:00 98.1 85 17 160/77 100 170/72 11/13/16 04:00 30 11/13/16 04:00 85 11/13/16 02:00 81 11/13/16 00:00 97.8 92 15 178/87 97 180/72 11/13/16 00:00 30 11/13/16 00:00 92 11/12/16 23:30 98 30 11/12/16 20:15 100 100 11/12/16 20:00 94 11/12/16 20:00 30 11/12/16 20:00 97.7 94 15 152/71 100 173/73 11/12/16 19:45 100 30 11/12/16 18:00 86 11/12/16 16:02 100 30 11/12/16 16:00 30 11/12/16 16:00 97.7 95 15 155/81 98 183/88 11/12/16 16:00 95 11/12/16 14:00 84 11/12/16 13:39 98 30 11/12/16 12:00 82 11/12/16 12:00 98.8 82 15 139/67 100 162/65 11/12/16 12:00 30 11/12/16 11:15 100 100 Date Time Temp Pulse Resp B/P Pulse Ox O2 Delivery O2 Flow Rate FiO2 11/15/16 07:55 100 30 11/15/16 07:00 15 11/15/16 06:00 93 11/15/16 04:00 99.1 95 15 148/68 98 158/64 11/15/16 04:00 93 11/15/16 04:00 30 11/15/16 04:00 95 11/15/16 03:50 98 30 11/15/16 02:00 95 11/15/16 01:12 95 30 11/15/16 00:00 30 11/15/16 00:00 100 11/15/16 00:00 100.1 100 14 141/69 97 153/62 11/14/16 22:41 98 30 11/14/16 22:00 98 11/14/16 20:00 104 11/14/16 20:00 96 30 11/14/16 20:00 30 11/14/16 20:00 99.0 104 15 135/70 95 145/60 11/14/16 16:00 30 11/14/16 16:00 99.5 104 19 129/73 94 110/79 11/14/16 15:52 94 35 11/14/16 12:00 99.0 98 15 125/59 97 121/52 11/14/16 12:00 30 11/15/16 07:00 Intake Total 1106 ml Output Total 1048 ml Balance 58 ml Constitutional Vital Signs Date Time Temp Pulse Resp B/P Pulse Ox O2 Delivery O2 Flow Rate FiO2 11/15/16 07:55 100 30 11/15/16 07:00 15 11/15/16 06:00 93 11/15/16 04:00 99.1 95 15 148/68 98 158/64 11/15/16 04:00 93 11/15/16 04:00 30 11/15/16 04:00 95 11/15/16 03:50 98 30 11/15/16 02:00 95 11/15/16 01:12 95 30 11/15/16 00:00 30 11/15/16 00:00 100 11/15/16 00:00 100.1 100 14 141/69 97 153/62 11/14/16 22:41 98 30 11/14/16 22:00 98 11/14/16 20:00 104 11/14/16 20:00 96 30 11/14/16 20:00 30 11/14/16 20:00 99.0 104 15 135/70 95 145/60 11/14/16 16:00 30 11/14/16 16:00 99.5 104 19 129/73 94 110/79 11/14/16 15:52 94 35 11/14/16 12:00 99.0 98 15 125/59 97 121/52 11/14/16 12:00 30 11/15/16 07:00 Intake Total 1106 ml Output Total 1048 ml Balance 58 ml (Noah Ford) Review of Systems/Exam ROS Unable to obtain due to patient being intubated. Exam Intubated. Opens eyes spontaneously & alert. Follows simple commands. CN: Pupils equal, tracks with eyes. Motor: Wiggling toes & squeezing hands to command. BUE with soft restraints. Lumbar drain with thierry CSF draining, insertion site with dry dressing with trace of shadowing, no erythema or streaking noted. Head of bed is flat. (Noah Ford) Medications Current Medications Current Medications Medications (Trade) Dose Ordered Sig/Aleja Route Start Time Stop Time Status Last Admin (Tylenol Supp) 650 mg Q4H PRN RECTAL 11/05/16 18:30 11/05/16 18:30 (NS Flush) 2 ml UNSCH PRN IV FLUSH 11/06/16 12:30 11/11/16 08:31 (NS Flush) 2 ml BID IV FLUSH 11/06/16 21:00 11/15/16 08:43 (Tylenol) 650 mg Q6H PRN PO 11/06/16 12:30 11/08/16 16:01 (Zofran Inj) 4 mg Q6H PRN IV 11/06/16 12:30 (Dulcolax Supp) 10 mg DAILY PRN RECTAL 11/06/16 12:30 Miscellaneous Information 1 [id number] XX 11/06/16 12:30 (Chlorhexidine 2% Cloth) Taper DAILY@04 TOP 11/07/16 04:00 11/03/17 03:59 11/15/16 04:00 Chlorhexidine Gluconate 3 pack 3 pack UNSCH PRN TOP 11/06/16 12:30 (Diprivan 1000 Mg/100ml Inj) 100 ml @ 0 mls/hr TITRATE IV 11/07/16 03:45 11/11/16 08:38 (Peridex 0.12% Liq) 15 ml BID@08,20 MT 11/07/16 08:00 11/15/16 08:48 (D50w (Vial) Inj) 25 ml UNSCH PRN IV PUSH 11/07/16 04:15 (Glucagon Inj) 1 mg UNSCH PRN OTHER 11/07/16 04:15 Insulin Aspart 1 1 Q6H SQ 11/07/16 06:00 11/12/16 17:09 Potassium Chloride 100 ml @ 50 mls/hr Q2H PRN IV-CENTRAL 11/07/16 08:45 11/07/16 23:30 Potassium Chloride 100 ml @ 50 mls/hr Q2H PRN IV 11/07/16 08:45 Potassium Chloride 100 ml @ 25 mls/hr UNSCH PRN IV-CENTRAL 11/07/16 08:45 Potassium Chloride 100 ml @ 50 mls/hr Q2H PRN IV 11/07/16 08:45 11/11/16 08:30 (Magnesium Sulfate Inj/NS Inj) 100 ml @ 50 mls/hr UNSCH PRN IV 11/07/16 08:45 Magnesium Oxide 800 mg 800 mg UNSCH PRN PO 11/07/16 08:45 11/11/16 08:31 (Magnesium Sulfate Inj/NS Inj) 100 ml @ 50 mls/hr UNSCH PRN IV 11/07/16 08:45 11/12/16 08:42 Potassium Phosphate 2000 mg 2,000 mg Q4H PRN PO 11/07/16 08:45 11/12/16 08:42 (Sodium Phosphate Inj/NS 250 ml Inj) 250 ml @ 42 mls/hr UNSCH PRN IV 11/07/16 08:45 Potassium Phosphate 2000 mg 2,000 mg UNSCH PRN PO/TUBE 11/07/16 08:45 (Potassium Phosphate Inj/NS 250 ml Inj) 260 ml @ 42 mls/hr UNSCH PRN IV 11/07/16 08:45 11/10/16 06:09 (Pepcid Inj) 20 mg Q12H IV PUSH 11/07/16 16:00 11/15/16 03:51 Metoprolol Tartrate 2.5 mg 2.5 mg Q6H PRN IV PUSH 11/08/16 14:45 11/12/16 05:08 Multivitamins 10 ml/Folic Acid 1 mg/Amino Acids/ Electrolytes/ Dextrose 1,010.2 ml @ 42 mls/hr Q24H IV 11/08/16 20:00 11/14/16 18:45 (Liposyn Iii 20% Inj) 250 ml @ 10 mls/hr Q24H IV 11/08/16 20:00 11/14/16 18:45 Hydromorphone HCl 1 mg 1 mg Q2HR PRN IV PUSH 11/08/16 15:45 11/15/16 10:47 (1/2 NS 1000 ml Inj) 1,000 ml @ 0 mls/hr Q0M IV 11/09/16 09:53 (K-Phos) 500 mg DAILY PO 11/10/16 09:00 11/15/16 08:42 (Trandate Inj) 10 mg Q1H PRN IV 11/13/16 01:30 11/13/16 09:09 Sodium Chloride 2 gm 2 gm BID PO 11/13/16 14:00 11/15/16 08:41 (Ancef 2 Gm Premix) 50 ml @ 100 mls/hr Q8H IV 11/13/16 22:00 11/15/16 06:00 (Noah Ford) Medical Decision Making MDM Remarks 86 y/o female s/p replacement of lumbar drain with closure of CSF leak, irrigation and debridement of lumbar wound by Dr. Melissa 11/12/16 doing well Drain site without any complications (Noah Ford) Plan Plan Remarks Discussed plan of care with & daughter Continue neuro checks Continue lumbar drain, plan to d/c Friday 11/17 Continue HOB flat & log roll patient only, if drain removed and dressing is dry will consider getting patient OOB PT/OT daily Antibiotics per Infectious Disease Vent management & sedation per Medical [employer] Daily lumbar drain dressing changes (Noah Ford) Attending Statement The patient was seen and examined today by the undersigned in the presence of the patient's nurse and GEORGE Farias. The dressing is dry. The subarachnoid drain appears to be functioning well. The patient is moving her upper and distal lower extremities with moderate strength. She is relatively awake, following simple commands. Discussed treatment plan with the family. Continue patient at flat bedrest, lumbar drain until 11/17/2016 as long as the dressing remains dry. (Pratik Melissa MD) Noah Ford Nov 15, 2016 11:14 Pratik Melissa MD Nov 15, 2016 12:18
--- NOTE | 2016-11-15 11:59 | HHI.CCPN ---
Subjective Remarks/Hospital Course This 86 year-old woman who presents to the emergency department complaining of nausea vomiting, low back pain, and chills on 11/05/2016. She has a history of metastatic endometrial cancer diagnosed 5 years ago initially, as well as chronic back pain. The chronic back pain preceded the malignancy. Most recent PET scan as reported by daughter revealed multiple bony metastasis to include skull, and right upper arm. She [facility] . Prior to her surgery , the patient was extremely physically active without any ambulation difficulties.She was doing well initially but over the past several days complained of increased nausea vomiting, increased low back pain, and chills. Upon admission incision has not had any drainage or bleeding,and she denied any urinary symptoms. The patient was admitted to [facility] on 11/05/2016, she subsequently has begun to have leukocytosis, urinary retention and noted drainage from lumbar laminectomy surgical site. Lumbar CT scan revealed postop laminectomy L4 with fluid and scattered bubbles possibly resolving hematoma, abscess could not be excluded. ID and Neurosurgery was consulted.Critical care medicine is consult that for patients noted sepsis, and progressive weakness bilateral lower extremities. Subjective: 11/07 Seen upon return from the OR following lumbar wound debridement and evacuation of epidural abscess by Dr. Melissa. Patient is to remain intubated per Dr. Melissa as she must be maintained with HOB flat due to dural leak (but rotate side to side q2 hours). At present she is not on continuous sedation, but is unresponsive to deep noxious stimuli upon return from general anesthesia. Reportedly large amount of respiratory secretions noted upon intubation by anesthesia. Routine airway per documentation. She received 1800 crystalloid intraoperatively. EBL 20 ml. 11/08: Afebrile. Patient remains on propofol infusion, moving bilateral upper and lower extremities wiggling toes and moving upper extremities. The patient was inadvertently placed on fentanyl infusion last night for purported pain. Fentanyl infusion discontinued, patient on when necessary pain medicine now currently following commands and denies pain. Leukocytosis resolved, the patient continues on Flagyl, Vancomycin and Ceptazidime per ID Dr. Nina. The patient remains flat in bed, supine position in order to begin nutrition PPN was initiated this a.m.. Extensive discussion with Dr. Melissa and Dr. Nina and palliative care consulted with planned discussion with family today. 11/09: Leukocytosis resolved. Wound culture was noted staph aureus. Patient was noted to have hypophosphatemia and hypomagnesemia ischemia which are being currently replaced. PPN was initiated for nutritional support secondary to put required positioning. Palliative care was consulted to discuss goals of care, currently aggressive treatment management continued per family request. 11/10: Afebrile .No acute events overnight. Patient underwent placement of CSF drain yesterday by interventional radiology. Patient's head of the bed to remain flat until Tuesday. The patient continues to have low phosphate and was placed on scheduled doses of phosphorus yesterday. Family requesting medication administration of vitamin C secondary to a small non-scientific research study that was published recently. Explained to family that it wasn't in evidence-based full research study performed but a small study without any level of evidence for implementation in the [place] at this time. Vitamin C is not indicated at this time. The family was educated by neurosurgery that the patient may have to possibly have surgery. 11/11 Tmax 99.0. The patient's CSF lumbar drain reevaluated by Dr. Melissa last evening, now draining fluid. No further drainage from surgical site. The patient remains in a supine position, PPN infusing for nutritional support. Her electrolytes continually being replaced per protocol. The patient remains on low-dose propofol infusion. Patient responsive following commands. 11/12: Patient was noted not to be moving upper extremities on command. Patient off sedation greater than 24 hours. MRI obtained today. Patient will return to surgery with Dr. Melissa. Lumbar drain dressing dry, with CSF draining. 11/13: The patient returned to neurosurgery yesterday, new lumbar drain placed. Minimal movement of bilateral upper extremities noted this a.m.. Patient moving hands minimally lifting arms, wiggling fingers and toes. 11/14:Afebrile: No acute changes overnight. Patient responsive to family, follows commands. The patient continues to be in supine position only to be log rolled secondary. Lumbar drain patent. 11/15 Patient remains intubated. On no sedation awake. Afebrile. Patient is in supine position lumbar drain in place. Objective Vital Signs Date Time Temp Pulse Resp B/P Pulse Ox O2 Delivery O2 Flow Rate FiO2 11/15/16 11:21 97 30 11/15/16 10:00 87 11/15/16 08:00 98.3 15 156/61 156/61 Intake and Output 11/14/16 11/14/16 11/15/16 08:00 16:00 00:00 Intake Total 487 ml 60 ml 616 ml Output Total 750 ml 420 ml 319 ml Balance -263 ml -360 ml 297 ml Result Diagram: 11/15/16 0400 11/15/16 0400 Other Results Laboratory Tests Test 11/15/16 04:00 White Blood Count 11.0 TH/MM3 Red Blood Count 2.94 MIL/MM3 Hemoglobin 9.5 GM/DL Hematocrit 27.3 % Mean Corpuscular Volume 93.1 FL Mean Corpuscular Hemoglobin 32.5 PG Mean Corpuscular Hemoglobin 34.9 % Concent Red Cell Distribution Width 14.0 % Platelet Count 306 TH/MM3 Mean Platelet Volume 9.0 FL Sodium Level 132 MEQ/L Potassium Level 3.7 MEQ/L Chloride Level 95 MEQ/L Carbon Dioxide Level 29.4 MEQ/L Anion Gap 8 MEQ/L Blood Urea Nitrogen 17 MG/DL Creatinine 0.39 MG/DL Estimat Glomerular Filtration 156 ML/MIN Rate Random Glucose 136 MG/DL Calcium Level 8.3 MG/DL Phosphorus Level 2.6 MG/DL Magnesium Level 1.7 MG/DL Imaging Last Impressions Chest X-Ray 11/15/16 0600 Signed Impressions: Service Date/Time: Tuesday, November 15, 2016 04:15 - CONCLUSION: Tubes and catheters are in good position. Mild pulmonary vascular congestion persists Jimi Schrader MD Thoracic Spine MRI 11/12/16 0000 Signed Impressions: Service Date/Time: Saturday, November 12, 2016 11:46 - CONCLUSION: 1. Degenerative changes but no canal or foraminal narrowing. 2. No evidence for abscess. 3. T5 and T2 vertebral body lesions are noted. Metastatic deposits are not excluded. 4. Extensive subcutaneous edema of the upper thorax and cervical region. 5. Large bilateral pleural effusions. Jesús Anderson MD Lumbar Spine X-Ray 11/12/16 0000 Signed Impressions: Service Date/Time: Saturday, November 12, 2016 21:53 - CONCLUSION: 1. Postsurgical changes as above. Reed George MD Lumbar Spine MRI 11/12/16 0000 Signed Impressions: Service Date/Time: Saturday, November 12, 2016 11:46 - CONCLUSION: 1. Complex fluid collection appears slightly increased in sagittal dimension with rim enhancement and marked surrounding edema and enhancement of the paraspinal soft tissues. This is consistent with the clinical history of abscess. 2. There is severe associated spinal stenosis secondary to mass effect from the fluid collection. Jesús Anderson MD Cervical Spine MRI 11/12/16 0000 Signed Impressions: Service Date/Time: Saturday, November 12, 2016 11:46 - CONCLUSION: 1. No evidence for abscess. 2. Nonspecific enhancing lesion of the T2 vertebral body, as well as diffuse decreased T1 signal involving the C7 pedicle and transverse process. The possibility of metastatic disease should be excluded. 3. Severe canal stenosis with cord compression at C5-6 and moderate canal stenosis at C4-5. Jesús Anderson MD ADDENDUM: There is extensive subcutaneous edema of the cervical and upper thoracic subcutaneous tissues posteriorly. Jesús Anderson MD Brain MRI 11/12/16 0000 Signed Impressions: Service Date/Time: Saturday, November 12, 2016 11:46 - CONCLUSION: 1. There are no findings to indicate acute infarct. 2. Abnormal signal layering within the occipital horns bilaterally likely representing a small amount of blood products. This finding is new compared to the prior CT. 3. Chronic changes include generalized atrophy and periventricular white matter change characteristic of chronic microvascular ischemia. Naveed Smith MD Lumbar Puncture Fluoroscopy 11/09/16 0000 Signed Impressions: Service Date/Time: Wednesday, November 09, 2016 16:21 - CONCLUSION: Uncomplicated lumbar drain placement as above. Naveed Rosenthal MD Entire Spine MRI 11/06/16 0000 Signed Impressions: Service Date/Time: Sunday, November 06, 2016 14:28 - CONCLUSION: 1. As noted on the MRI lumbar spine there is a complex fluid collection in the soft tissues posterior to the spinal canal at the level of L4 measuring 3.4 x 3.1 x 3.9 cm suggestive of a postoperative hematoma/seroma. An abscess cannot be excluded. 2. Abnormal signal in the body of T2 suspicious for bony metastatic disease. 3. Status post fusion of C6-7. 4. Broad-based bulging with disc osteophyte complexes at C4-5 and C5-6. Possible myelopathy in the cord at this level. Patrick Chavez MD Lumbar Spine CT 11/05/16 0000 Signed Impressions: Service Date/Time: Saturday, November 05, 2016 04:14 - CONCLUSION: 1. Postop laminectomy at L4 level with fluid within the operative bed and a few scattered gas bubbles may be postsurgical change and possibly resolving hematoma, however abscess is not excluded. No definite signs of osteomyelitis. 2. Neural foramina compromise left L2-L3, bilateral L4-L5. 3. Bilateral masses compromise L5-S1. 4. Residual slight thecal sac stenosis may be present at L3-4 and L4-5. Deangelo Monsivais MD Head CT 11/05/16 0000 Signed Impressions: Service Date/Time: Saturday, November 05, 2016 16:08 - CONCLUSION: 1. No acute intracranial abnormality. Hussain Sandoval MD Abdomen/Pelvis CT 11/05/16 0000 Signed Impressions: Service Date/Time: Saturday, November 05, 2016 16:12 - CONCLUSION: 1. There is residual IV contrast within the kidneys and bladder. 2. There are no findings to indicate a bowel obstruction. 3. The patient is post hysterectomy. Hussain Sandoval MD Objective Remarks Drips: PPN 42cc/hr GENERAL: Elderly female who is orotracheally intubated and sedated SKIN: Warm and dry. HEAD: Atraumatic. Normocephalic. EYES: Pupils 2 mm bilaterally and sluggishly reactive. No scleral icterus. No injection or drainage. ENT: No nasal bleeding or discharge. NECK: Trachea midline. No JVD. CARDIOVASCULAR: Normal rate, regular rhythm. 2/6 systolic murmur left sternal border RESPIRATORY: No accessory muscle use. ET tube in place. Occasional coarse rhonchi. On mechanical ventilation ACV tidal volume 450/rate 15/PEEP 5/FiO2 35% GASTROINTESTINAL: Healed abdominal incision noted. Bowel sounds hypoactive. No tenderness appreciable : Jean-Baptiste in place with light yellow urine output. MUSCULOSKELETAL: Extremities without clubbing, cyanosis, 2+ peripheral edema bilateral upper extremity. No obvious deformities. NEUROLOGICAL: RASS 0. Opens eyes, follows commands with squeeze bilateral hands , moving upper arms flexion and extension,. Does move bilateral feet including plantar flexion with minimal extension. A/P Assessment and Plan Plan by systems: Neurologic: Metabolic encephalopathy secondary to sepsis Lumbar epidural abscess Status post lumbar wound debridement and drainage epidural abscess 11/07/16 (Dr. Melissa) S/P exploration, irrigation and replacement of lumbar drain 11/12/16 (Dr. Melissa) GCS 11T-responsive, following commands Neurochecks every 2 hour per ICU protocol 11/05 CT lumbar spine-postop laminectomy L4 with fluid and scattered bubbles possibly resolving hematoma. Abscess cannot be excluded. Neural foraminotomy not compromise left L2-3, L4-L5, residual thecal sac stenosis may be present L3 L4, L4-L5,B/L mass compromise L5-S1. MRI -post surgical changes with hematoma/seroma ? Abscess L3/L4 and L4/L5. 11/07-postop CSF leak, spinal epidural abscess, postoperative wound dehiscence, pre-existing dural tear with repair, status post debridement lumbar wound dehiscence, evacuation of lumbar abscess indirect repair of pre-existing dural tear Reportedly persistent dural leak noted intraoperatively. Patient is to remain head of bed down/supine per Dr. Melissa. EEG 11/06/16moderately slow background consistent with encephalopathy. No epileptiform features. Neurology following, Dr. Thomson NSG following, Dr. Melissa 11/09 IR CSF drain L1-L2 11/12 CT lumbar spine L3-4, L4-5 mass effect. 11/12 Replacement of lumbar drain and evaluation in OR 11/12 CT esyuomsf-C1-O3 cervical moderate left foraminal stenosis, C3-C4 severe left foraminal stenosis, C4-C5 mild bilateral foraminal stenosis mild abutment of ordered, C5-C6 mild cord compression 11/12 CT thoracic-T2 and T5 lesion cannot rule out metastasis Monitor Lumbar drainage. NSG-Dr. Melissa Respiratory: Acute respiratory failure Duo nebs every 6 hours scheduled ACV tidal line 450/rate 15/P5/FiO2 30%. Follow-up ABG as appropriate. Ventilator bundle Maintain head of bed flat per neurosurgery recommendations CT [id number] bilateral pleural effusions, T2 and T5 lesions cannot rule out metastatic disease Cardiovascular: Monitor HR and BP Maintain MAP > 65 mmHg FEN/RENAL Acute kidney injury- resolved Neurogenic bladder with urinary retention. Hyponatremia Monitor renal function, I/O's, Electrolyte replacement per ICU protocol GI: Moderate protein energy malnutrition PPN Patient position supine, unable to begin tube feeds. PPN at 42 cc/hour with lipid supplementation 11/[address] Agnone, no GI issues identified. ID: Severe sepsis-resolved Leukocytosis-resolved Bandemia Abx per ID ( Cefazolin) monitor for signs of infections ( Fever, WBC) HEME: Metastatic Endometrial cancer s/p recent chemotherapy / Chronic anemia Monitor CBC Endocrine: Low-dose insulin sliding scale at bedside glucose every 6 hours. GI Prophylaxis Pepcid twice a day DVT Prophylaxis -- SCDs. Hold pharmacologic DVT prophylaxis defer to neurosurgery when to initiate. ACCESS: Port accessed right chest. Left radial art line placed in OR 11/07 day # 7 Palliative care following CCT 30 mins Yves Sanchez MD Nov 15, 2016 11:59
--- NOTE | 2016-11-15 14:32 | HHI.PR ---
Subjective Remarks pt remains in icu resting quietly responsive early rounds family not present Objective Vital Signs Date Time Temp Pulse Resp B/P Pulse Ox O2 Delivery O2 Flow Rate FiO2 11/15/16 12:00 89 15 98 125/48 11/15/16 12:00 89 11/15/16 12:00 30 11/15/16 11:30 18 11/15/16 11:21 97 30 11/15/16 10:00 87 11/15/16 08:00 92 11/15/16 08:00 98.3 92 15 156/61 100 156/61 11/15/16 08:00 30 11/15/16 07:55 100 30 11/15/16 06:00 93 11/15/16 04:00 99.1 95 15 148/68 98 158/64 11/15/16 04:00 93 11/15/16 04:00 30 11/15/16 04:00 95 11/15/16 03:50 98 30 11/15/16 02:00 95 11/15/16 01:12 95 30 11/15/16 00:00 30 11/15/16 00:00 100 11/15/16 00:00 100.1 100 14 141/69 97 153/62 11/14/16 22:41 98 30 11/14/16 22:00 98 11/14/16 20:00 104 11/14/16 20:00 96 30 11/14/16 20:00 30 11/14/16 20:00 99.0 104 15 135/70 95 145/60 11/14/16 16:00 30 11/14/16 16:00 99.5 104 19 129/73 94 110/79 11/14/16 15:52 94 35 I/O 11/14/16 11/14/16 11/14/16 11/15/16 11/15/16 11/15/16 07:00 15:00 23:00 07:00 15:00 23:00 Intake Total 487 ml 60 ml 616 ml 430 ml Output Total 750 ml 420 ml 319 ml 309 ml Balance -263 ml -360 ml 297 ml 121 ml Intake IV Total 77 ml 0 ml 168 ml 80 ml TPN/PPN 331 ml 60 ml 314 ml 282 ml Lipid 79 ml 74 ml 68 ml Other 60 ml Output Urine Total 750 ml 350 ml 240 ml 250 ml Stool Total 0 ml 0 ml 0 ml 0 ml Gastric Drainage Total 0 ml Drainage Total 70 ml 79 ml 59 ml Result Diagram: 11/15/1639911/15/16 040 Procedures replacement of CSF drain and dural patch 11/12 evacuation of epidural abscess 11/07 had laminectomy 2 weeks ago Other Results Last 24 hours Impressions Chest X-Ray 11/15/16 0600 Signed Impressions: Service Date/Time: Tuesday, November 15, 2016 04:15 - CONCLUSION: Tubes and catheters are in good position. Mild pulmonary vascular congestion persists Jimi Schrader MD Objective Remarks CONSTITUTIONAL/GENERAL: This is an adequately nourished patient, in no apparent distress intubated in icu. TUBES/LINES/DRAINS: SKIN: No jaundice, rashes, or lesions. Skin temperature appropriate. Not diaphoretic. HEAD: Atraumatic. Normocephalic. EYES: follows me . Fundi not examined. ENT: Nose without bleeding or purulent drainage. Throat without visible erythema, exudates, masses, or lesions intubated on vent. NECK: Trachea midline. Supple, nontender. No palpable thyroid enlargement or nodularity. CARDIOVASCULAR: Regular rate and rhythm without murmurs, gallops, or rubs. No JVD. Peripheral pulses symmetric RESPIRATORY/CHEST: Symmetric, unlabored respirations. Clear to auscultation. Breath sounds equal bilaterally. No wheezes, rales, or rhonchi. GASTROINTESTINAL: Abdomen soft, some tenderness nausea resolved nondistended. No hepato-splenomegaly, or palpable masses. No guarding. Bowel sounds present. GENITOURINARY: Without palpable bladder distension. Jean-Baptiste catheter in place. MUSCULOSKELETAL: Extremities without clubbing, cyanosis, or edema. No joint tenderness or effusion noted. No calf tenderness. No mottling or clubbing.lumbar wound with drainage LYMPHATICS: No palpable cervical or supraclavicular adenopathy.mild edema present NEUROLOGICAL: sedated Motor and sensory grossly within normal limits. Follows commands. Moves all extremities. PSYCHIATRIC: No obvious anxiety/depression. Medications and IVs Current Medications Medications (Trade) Dose Ordered Sig/Aleja Route PRN Reason Start Time Stop Time Status Last Admin Dose Admin Acetaminophen (Tylenol Supp) 650 mg Q4H PRN RECTAL FEVER > 101 11/05/16 18:30 11/05/16 18:30 Sodium Chloride (NS Flush) 2 ml UNSCH PRN IV FLUSH FLUSH AFTER USING IV ACCESS 11/06/16 12:30 11/11/16 08:31 Sodium Chloride (NS Flush) 2 ml BID IV FLUSH 11/06/16 21:00 11/15/16 08:43 Acetaminophen (Tylenol) 650 mg Q6H PRN PO PAIN 1-10 AND/OR FEVER >101F 11/06/16 12:30 11/08/16 16:01 Ondansetron HCl (Zofran Inj) 4 mg Q6H PRN IV NAUSEA OR VOMITING 11/06/16 12:30 Bisacodyl (Dulcolax Supp) 10 mg DAILY PRN RECTAL CONSTIPATION 11/06/16 12:30 Miscellaneous Information 1 [id number] XX 11/06/16 12:30 Chlorhexidine Gluconate (Chlorhexidine 2% Cloth) Taper DAILY@04 TOP 11/07/16 04:00 11/03/17 03:59 11/15/16 04:00 Chlorhexidine Gluconate 3 pack 3 pack UNSCH PRN [facility] 11/06/16 12:30 Propofol (Diprivan 1000 Mg/100ml Inj) 100 ml @ 0 mls/hr TITRATE IV 11/07/16 03:45 11/11/16 08:38 Chlorhexidine Gluconate (Peridex 0.12% Liq) 15 ml BID@08,20 MT 11/07/16 08:00 11/15/16 08:48 Dextrose (D50w (Vial) Inj) 25 ml UNSCH PRN IV PUSH HYPOGLYCEMIA-SEE COMMENTS 11/07/16 04:15 Glucagon (Glucagon Inj) 1 mg UNSCH PRN OTHER HYPOGLYCEMIA-SEE COMMENTS 11/07/16 04:15 Insulin Aspart 1 1 Q6H SQ 11/07/16 06:00 11/12/16 17:09 Potassium Chloride 100 ml @ 50 mls/hr Q2H PRN IV-CENTRAL For Potassium 2.8 - 3.2 mEq/L 11/07/16 08:45 11/07/16 23:30 Potassium Chloride 100 ml @ 50 mls/hr Q2H PRN IV For Potassium 2.8 - 3.2 mEq/L 11/07/16 08:45 Potassium Chloride 100 ml @ 25 mls/hr UNSCH PRN IV-CENTRAL For Potassium 3.3 - 3.5 mEq/L 11/07/16 08:45 Potassium Chloride 100 ml @ 50 mls/hr Q2H PRN IV For Potassium 3.3 - 3.5 mEq/L 11/07/16 08:45 11/11/16 08:30 Magnesium Sulfate/ Sodium Chloride (Magnesium Sulfate Inj/NS Inj) 100 ml @ 50 mls/hr UNSCH PRN IV For Magnesium 0.9 - 1.1 mg/dL 11/07/16 08:45 Magnesium Oxide 800 mg 800 mg UNSCH PRN PO For Magnesium 1.2 - 1.6 mg/dL 11/07/16 08:45 11/11/16 08:31 Magnesium Sulfate/ Sodium Chloride (Magnesium Sulfate Inj/NS Inj) 100 ml @ 50 mls/hr UNSCH PRN IV For Magnesium 1.2 - 1.6 mg/dL 11/07/16 08:45 11/12/16 08:42 Potassium Phosphate 2000 mg 2,000 mg Q4H PRN PO For Phosphorus < 2.5 mg/dL 11/07/16 08:45 11/12/16 08:42 Sodium Phosphate/ Sodium Chloride (Sodium Phosphate Inj/NS 250 ml Inj) 250 ml @ 42 mls/hr UNSCH PRN IV For Phosphorus < 2.5 mg/dL 11/07/16 08:45 Potassium Phosphate 2000 mg 2,000 mg UNSCH PRN PO/TUBE SEE LABEL COMMENTS 11/07/16 08:45 Potassium Phosphate/Sodium Chloride (Potassium Phosphate Inj/NS 250 ml Inj) 260 ml @ 42 mls/hr UNSCH PRN IV SEE LABEL COMMENTS 11/07/16 08:45 11/10/16 06:09 Famotidine (Pepcid Inj) 20 mg Q12H IV PUSH 11/07/16 16:00 11/15/16 03:51 Metoprolol Tartrate 2.5 mg 2.5 mg Q6H PRN IV PUSH SYS BP GREATER THAN 160 MMHG 11/08/16 14:45 11/12/16 05:08 Multivitamins 10 ml/Folic Acid 1 mg/Amino Acids/ Electrolytes/ Dextrose 1,010.2 ml @ 42 mls/hr Q24H IV 11/08/16 20:00 11/14/16 18:45 Fat Emulsion Intravenous (Liposyn Iii 20% Inj) 250 ml @ 10 mls/hr Q24H IV 11/08/16 20:00 11/14/16 18:45 Hydromorphone HCl 1 mg 1 mg Q2HR PRN IV PUSH PAIN SCALE 7 TO 10 11/08/16 15:45 11/15/16 10:47 Sodium Chloride (1/2 NS 1000 ml Inj) 1,000 ml @ 0 mls/hr Q0M IV 11/09/16 09:53 Potassium Phosphate (K-Phos) 500 mg DAILY PO 11/10/16 09:00 11/15/16 08:42 Labetalol HCl (Trandate Inj) 10 mg Q1H PRN IV SYS BP GREATER THAN 170 MMHG 11/13/16 01:30 11/13/16 09:09 Sodium Chloride 2 gm 2 gm BID PO 11/13/16 14:00 11/15/16 08:41 Cefazolin Sodium/ Dextrose (Ancef 2 Gm Premix) 50 ml @ 100 mls/hr Q8H IV 11/13/16 22:00 11/15/16 06:00 Assessment and Plan Problem List: (1) Nausea & vomiting Status: Resolved (2) Weakness Status: Acute (3) Leukocytosis Status: Resolved Plan: surgical site debrided wbc improved hr and temp controlled blood cultures show gram pos cocci further id pending (4) Hypokalemia Status: Resolved Plan: on potassium replacement protocall (5) Dural tear Status: Acute Plan: treated surgically with blood and dural patch drain in place Assessment and Plan pt progressing slowly csf drain working vss responsive Discussed Condition With family not present for discussion today Nestor Kendrick DO Nov 15, 2016 14:32
--- NOTE | 2016-11-15 15:04 | HHI.HCPN ---
Reason for visit a. To assist with evaluation and management of symptoms including: pain, weakness. b. To assist medical decision maker(s) with: better understanding of current medical conditions; weighing benefits/burdens of medical treatment options; making medical treatment decisions. . Subjective/Interval History Patient seen and examined in ICU. No family at bedside. Patient arouses to voice , nods yes to pain in back and throat. Unable to further qualify or quantify. She quickly falls off to sleep. Remains on mech vent in supine position per neurosurgery orders. She underwent exploration/debridement of L4 5 world, revision closure of dural tear and subarachnoid drain replacement by Dr. Melissa on 11/13/16. Train remains in place training clear yellow fluid. CSF cultures dated 11/12/16 negative today. Tmax 100.1. Vital signs stable. WBC 11.0, hemoglobin 9.5, hematocrit 27.3, platelets 306. Chest x-ray reveals persistent mild pulmonary vascular congestion. Some twitching type movements noted from bilateral upper extremities during visit. Remains on PPN/lipids. . Family/friend interactions No family at bedside, number previously provided. . Advance Directives Living Will: Never completed Health Care Surrogate: Never completed Durable Power of Bus Girl: Never completed Advance Directive Specifics Health Care Surrogate(s): Patient is currently incapacitated to make her own health care decisions. According to [place] statutes health care proxy decision-making falls to the patient's spouse. He is supported by their daughter, Anna. . Significant change in goals: FULL CODE. Goals remain aggressive. . Objective Vital Signs Date Time Temp Pulse Resp B/P Pulse Ox O2 Delivery O2 Flow Rate FiO2 11/15/16 14:00 97 11/15/16 12:00 89 15 98 125/48 11/15/16 12:00 89 11/15/16 12:00 30 11/15/16 11:30 18 11/15/16 11:21 97 30 11/15/16 10:00 87 11/15/16 08:00 92 11/15/16 08:00 98.3 92 15 156/61 100 156/61 11/15/16 08:00 30 11/15/16 07:55 100 30 11/15/16 06:00 93 11/15/16 04:00 99.1 95 15 148/68 98 158/64 11/15/16 04:00 93 11/15/16 04:00 30 11/15/16 04:00 95 11/15/16 03:50 98 30 11/15/16 02:00 95 11/15/16 01:12 95 30 11/15/16 00:00 30 11/15/16 00:00 100 11/15/16 00:00 100.1 100 14 141/69 97 153/62 11/14/16 22:41 98 30 11/14/16 22:00 98 11/14/16 20:00 104 11/14/16 20:00 96 30 11/14/16 20:00 30 11/14/16 20:00 99.0 104 15 135/70 95 145/60 11/14/16 16:00 30 11/14/16 16:00 99.5 104 19 129/73 94 110/79 11/14/16 15:52 94 35 Intake & Output 11/15/16 11/15/16 07:00 19:00 Intake Total 1046 ml Output Total 628 ml Balance 418 ml Intake IV Total 248 ml TPN/PPN 596 ml Lipid 142 ml Other 60 ml Output Urine Total 490 ml Stool Total 0 ml Drainage Total 138 ml Physical Exam CONSTITUTIONAL/GENERAL: This is critically ill patient on mechanical ventilation. TUBES/LINES/DRAINS: ETT, bite block, OG, right chest port, PIV, Jean-Baptiste, bilateral soft wrist restraints, SCD's. Lumbar subarachnoid drain. SKIN: Ecchymoses on upper extremities. No wounds seen anteriorly. Skin temperature appropriate. Not diaphoretic. EYES: Opens eyes slightly to voice. No scleral icterus or injection. CARDIOVASCULAR: Regular rate and rhythm. Systolic murmur noted left sternal border. RESPIRATORY/CHEST: Symmetric, unlabored respirations on mechanical vent. Bilateral course breath sounds. GASTROINTESTINAL: Abdomen soft, mildly distended. No guarding. Bowel sounds hypoactive. GENITOURINARY: Without palpable bladder distension. Jean-Baptiste catheter in place. MUSCULOSKELETAL: Extremities with edema. No mottling or clubbing. NEUROLOGICAL: Opens eyes to voice. Nods yes to pain. Falls quickly off to sleep. . Diagnostic Tests Laboratory Laboratory Tests Test 11/12/16 11/12/16 11/13/16 11/14/16 16:45 21:57 03:40 04:05 White Blood Count 9.2 TH/MM3 10.4 TH/MM3 9.2 TH/MM3 (4.0-11.0) (4.0-11.0) (4.0-11.0) Red Blood Count 3.08 MIL/MM3 2.95 MIL/MM3 2.74 MIL/MM3 (4.00-5.30) (4.00-5.30) (4.00-5.30) Hemoglobin 9.7 GM/DL 9.4 GM/DL 9.0 GM/DL (11.6-15.3) (11.6-15.3) (11.6-15.3) Hematocrit 28.5 % 27.1 % 25.3 % (35.0-46.0) (35.0-46.0) (35.0-46.0) Mean Corpuscular Volume 92.7 FL 92.0 FL 92.5 FL (80.0-100.0) (80.0-100.0) (80.0-100.0) Mean Corpuscular Hemoglobin 31.4 PG 31.8 PG 33.0 PG (27.0-34.0) (27.0-34.0) (27.0-34.0) Mean Corpuscular Hemoglobin 33.9 % 34.6 % 35.6 % Concent (32.0-36.0) (32.0-36.0) (32.0-36.0) Red Cell Distribution Width 13.5 % 13.5 % 13.8 % (11.6-17.2) (11.6-17.2) (11.6-17.2) Platelet Count 239 TH/MM3 234 TH/MM3 248 TH/MM3 (150-450) (150-450) (150-450) Mean Platelet Volume 8.7 FL 8.7 FL 8.9 FL (7.0-11.0) (7.0-11.0) (7.0-11.0) Neutrophils (%) (Auto) 81.4 % 85.3 % 79.6 % (16.0-70.0) (16.0-70.0) (16.0-70.0) Lymphocytes (%) (Auto) 3.2 % 2.5 % 4.2 % (9.0-44.0) (9.0-44.0) (9.0-44.0) Monocytes (%) (Auto) 11.2 % 9.4 % (0.0-8.0) 12.6 % (0.0-8.0) (0.0-8.0) Eosinophils (%) (Auto) 3.8 % (0.0-4.0) 2.7 % (0.0-4.0) 3.1 % (0.0-4.0) Basophils (%) (Auto) 0.4 % (0.0-2.0) 0.1 % (0.0-2.0) 0.5 % (0.0-2.0) Neutrophils # (Auto) 7.5 TH/MM3 8.9 TH/MM3 7.3 TH/MM3 (1.8-7.7) (1.8-7.7) (1.8-7.7) Lymphocytes # (Auto) 0.3 TH/MM3 0.3 TH/MM3 0.4 TH/MM3 (1.0-4.8) (1.0-4.8) (1.0-4.8) Monocytes # (Auto) 1.0 TH/MM3 1.0 TH/MM3 1.2 TH/MM3 (0-0.9) (0-0.9) (0-0.9) Eosinophils # (Auto) 0.3 TH/MM3 0.3 TH/MM3 0.3 TH/MM3 (0-0.4) (0-0.4) (0-0.4) Basophils # (Auto) 0.0 TH/MM3 0.0 TH/MM3 0.0 TH/MM3 (0-0.2) (0-0.2) (0-0.2) CBC Comment AUTO DIFF AUTO DIFF AUTO DIFF Differential Total Cells 100 100 100 Counted Neutrophils % (Manual) 82 % (16-70) 81 % (16-70) 81 % (16-70) Band Neutrophils % 2 % (0-6) 10 % (0-6) 1 % (0-6) Lymphocytes % 1 % (9-44) 1 % (9-44) 3 % (9-44) Monocytes % 6 % (0-8) 6 % (0-8) 10 % (0-8) Eosinophils % 4 % (0-4) 2 % (0-4) Basophils % 1 % (0-2) 1 % (0-2) 1 % (0-2) Neutrophils # (Manual) 8.1 TH/MM3 9.6 TH/MM3 7.7 TH/MM3 (1.8-7.7) (1.8-7.7) (1.8-7.7) Myelocytes 4 % (0-0) 2 % (0-0) Differential Comment FINAL DIFF FINAL DIFF FINAL DIFF MANUAL MANUAL MANUAL Platelet Estimate NORMAL NORMAL NORMAL (NORMAL) (NORMAL) (NORMAL) Platelet Morphology Comment NORMAL ENLARGED NORMAL (NORMAL) (NORMAL) (NORMAL) Prothrombin Time 11.2 SEC (9.8-11.6) Prothromb Time International 1.0 RATIO Ratio Blood Type O POSITIVE Antibody Screen NEGATIVE CSF Volume (Tube 1) 2.0 ML CSF Supernatant Color (tube 1) SLIGHTLY XANTHOCHROM (CLEAR) CSF Gross Blood (Tube 1) TRACE (0) CSF WBC (Tube 1) 9 /MM3 (0-10) CSF RBC (Tube 1) 360 /MM3 (NONE) CSF Neutrophils 62 % CSF Lymphocytes 30 % CSF Monocytes 8 % Metamyelocytes 1 % (0-1) Sodium Level 132 MEQ/L 134 MEQ/L (136-145) (136-145) Potassium Level 3.8 MEQ/L 3.6 MEQ/L (3.5-5.1) (3.5-5.1) Chloride Level 96 MEQ/L 96 MEQ/L (98-107) (98-107) Carbon Dioxide Level 28.4 MEQ/L 29.7 MEQ/L (21.0-32.0) (21.0-32.0) Anion Gap 8 MEQ/L (5-15) 8 MEQ/L (5-15) Blood Urea Nitrogen 16 MG/DL (7-18) 13 MG/DL (7-18) Creatinine 0.26 MG/DL 0.29 MG/DL (0.50-1.00) (0.50-1.00) Estimat Glomerular Filtration 249 ML/MIN 220 ML/MIN Rate (>89) (>89) Random Glucose 152 MG/DL 133 MG/DL (74-106) (74-106) Calcium Level 7.9 MG/DL 8.3 MG/DL (8.5-10.1) (8.5-10.1) Phosphorus Level 2.4 MG/DL 2.3 MG/DL (2.5-4.9) (2.5-4.9) Magnesium Level 1.6 MG/DL 1.6 MG/DL (1.5-2.5) (1.5-2.5) Red Cell Morphology Comment NORMAL (NORMAL) Test 11/15/16 04:00 White Blood Count 11.0 TH/MM3 (4.0-11.0) Red Blood Count 2.94 MIL/MM3 (4.00-5.30) Hemoglobin 9.5 GM/DL (11.6-15.3) Hematocrit 27.3 % (35.0-46.0) Mean Corpuscular Volume 93.1 FL (80.0-100.0) Mean Corpuscular Hemoglobin 32.5 PG (27.0-34.0) Mean Corpuscular Hemoglobin 34.9 % Concent (32.0-36.0) Red Cell Distribution Width 14.0 % (11.6-17.2) Platelet Count 306 TH/MM3 (150-450) Mean Platelet Volume 9.0 FL (7.0-11.0) Sodium Level 132 MEQ/L (136-145) Potassium Level 3.7 MEQ/L (3.5-5.1) Chloride Level 95 MEQ/L (98-107) Carbon Dioxide Level 29.4 MEQ/L (21.0-32.0) Anion Gap 8 MEQ/L (5-15) Blood Urea Nitrogen 17 MG/DL (7-18) Creatinine 0.39 MG/DL (0.50-1.00) Estimat Glomerular Filtration 156 ML/MIN Rate (>89) Random Glucose 136 MG/DL (74-106) Calcium Level 8.3 MG/DL (8.5-10.1) Phosphorus Level 2.6 MG/DL (2.5-4.9) Magnesium Level 1.7 MG/DL (1.5-2.5) Result Diagram: 11/15/1639911/15/16399 Microbiology Microbiology Date/Time Procedure Status Source Growth 11/12/16 21:06 Gram Stain - Final Resulted Wound Other 11/12/16 21:06 Wound Culture - Preliminary Resulted Wound Other NO GROWTH IN 48 HOURS. 11/12/16 21:06 Acid Fast Stain - Final Resulted Wound Other NO ACID FAST BACILLI SEEN 11/12/16 21:06 Mycobacterial Culture Resulted Wound Other Pending 11/12/16 21:06 Fungal Smear - Final Resulted Wound Other NO FUNGAL ELEMENTS SEEN. 11/12/16 21:06 Fungal Culture Resulted Wound Other Pending 11/12/16 21:57 Cancelled Fluid Other 11/12/16 21:57 Cancelled Fluid Other 11/12/16 21:57 Cancelled Fluid Other 11/12/16 21:57 Cancelled Cerebral Spinal Fluid Lumbar Puncture 11/12/16 21:57 Gram Stain - Final Resulted Cerebral Spinal Fluid Shunt Fluid 11/12/16 21:57 CSF Culture - Preliminary Resulted Cerebral Spinal Fluid Shunt Fluid NO GROWTH IN 48 HOURS. 11/12/16 21:57 Fungal Smear - Final Resulted Cerebral Spinal Fluid Shunt Fluid NO FUNGAL ELEMENTS SEEN. 11/12/16 21:57 Fungal Culture Resulted Cerebral Spinal Fluid Shunt Fluid Pending 11/12/16 21:57 Acid Fast Stain - Final Resulted Cerebral Spinal Fluid Shunt Fluid NO ACID FAST BACILLI SEEN 11/12/16 21:57 Mycobacterial Culture Resulted Cerebral Spinal Fluid Shunt Fluid Pending Procedures * 11/07/16 - Intubation * 11/07/16: debridement lumbar wound dehiscence, evacuation lumbar epidural abscess, indirect repair pre-existing dural tear Dr. Melissa . Other FULL CODE. Goals remain aggressive. . Assessment and Plan Disease Oriented Problem List: (1) Spinal epidural abscess (2) Postoperative CSF leak (3) Postoperative wound dehiscence (4) Leukocytosis (5) Sepsis (6) Respiratory failure (7) Anemia (8) Nausea & vomiting (9) Hypokalemia (10) Dural tear (11) Weakness (12) Dehydration Symptom Scale: (1) Back pain 0-10 Scale: Unable to quantify Comment: Nods yes to pain, unable to qualify or quantify. (2) Weakness 0-10 Scale: Unable to quantify Pertinent Non-Medical Issues Psychosocial: . Spiritual: Jainism clif. Legal: patient currently incapacitated. No written advance directives. According to [place] statutes health care proxy decision-making falls to patient 's spouse. He is supported by their daughter Anna. Ethical issues impacting care: No known concerns at this time. . Important Contacts * Khari Leos, spouse: [phone] * Anna Poon, daughter: [phone] . Prognosis In review of notes neurosurgery, carbide operator and infectious disease feel it will be difficult to completely treat this infection due to chances of recurrence secondary to CSF leak. Neurosurgery, Dr. Melissa note indicates he advised the family "that it would be best to continue with the head of bed flat and intubation and sedation to keep her comfortable and avoid straining to allow the CSF leak to seal. She will be monitored closely for signs of recurrent infection or CSF leakage. However further MRI imaging may be problematic, as it will be difficult to determine if she has recurrent abscess versus blood clot formation which is been allowed to form and packing material which has been placed to try to seal the CSF leak." . Code Status: Full Code Plan * Decision Maker: patient currently incapacitated. No written advance directives. According to [place] statutes health care proxy decision-making falls to patient's spouse. He is supported by their daughter Anna. * FULL CODE * Goals remain aggressive. * SYMPTOMS: Pain: unable to quantify or qualify pain, pain secondary to epidural abscess, recent surgeries, bedbound status and history of chronic back pain. 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 Weakness: secondary to epidural abscess, infection, dural tear s/p surgery again 11/13/16. Continue supine position at this time per neurosurgery recommendations. Dyspnea: currently sedated on mechanical ventilation. No new medication recommendations at this time. * Palliative care will continue to follow throughout hospital course to assist with symptom management and clarification of goals as needed. . Attestation To help prompt me to consider important information that might be impacting today's encounter and assessment, information from prior notes written by myself or my colleagues may have been "brought forward" into today's note. My signature on this note, however, is an attestation that I personally performed the exam, history, and/or decision-making noted today, and, unless otherwise indicated, the interactions with patient, family, and staff as well as the review of records all occurred today. I also attest that the listed assessment and stated plan reflect my best clinical judgment today based on the combination of historical information, prior notes, and today's exam/ interactions. When time spent is documented, it refers only to time spent today by the signer, or if indicated, combined time spent today by collaborating physician/nurse practitioner. CAMRYN ZEE Nov 15, 2016 15:03
[2016-11-15] MEDS: FAT EMULSION 20% INJ 250 ML (@10 mls/hr) IV SCH (18:33)
[2016-11-15] MEDS: CLINIMIX E 4.25/5 1000 mL- </= 42 mls/hr IV SCH ×3 (18:34)
[2016-11-16] VITALS (18 sets, daily range): BP systolic 102–173; BP diastolic 54–80; PULSE 79–106; RESP 15–26; TEMP 98.4–99; O2SAT 92–100
[2016-11-16] MEDS: CHLORHEXIDINE GLUCONATE 2 % 1 PACK (2 CLOTHS) TOP SCH (01:45)
[2016-11-16] MEDS: HYDROmorphone HCL PF 1 MG/ML VIAL IV PUSH PRN ×4 (01:45→21:55)
[2016-11-16] MEDS: FAMOTIDINE 20 MG/2 ML VIAL IV PUSH SCH ×2 (04:25→15:14)
[2016-11-16] MEDS: ceFAZolin 2 GM PREMIX 50 ML IV SCH ×3 (04:26→21:55)
[2016-11-16 04:45] LABS: AUTOMATED NEUTROPHIL # 5.7 TH/MM3 (1.8-7.7); BASOPHIL % 0.6 % (0.0-2.0); EOSINOPHIL # 0.2 TH/MM3 (0-0.4); EOSINOPHIL % 2.7 % (0.0-4.0); HEMATOCRIT 24.6 % (35.0-46.0); LYMPHOCYTE # 0.4 TH/MM3 (1.0-4.8); MEAN CELL VOLUME 91.8 FL (80.0-100.0); MEAN CORPUSCULAR HGB CONC 34.9 % (32.0-36.0); MONO % 15.5 % (0.0-8.0); NEUT % 76.2 % (16.0-70.0); PLATELET COUNT 287 TH/MM3 (150-450); RED BLOOD COUNT 2.68 MIL/MM3 (4.00-5.30); RED CELL DISTRIBUTION WIDTH 14.1 % (11.6-17.2); WHITE BLOOD COUNT 7.5 TH/MM3 (4.0-11.0)
[2016-11-16 04:58] LABS: HEMO FLAGS AUTO DIFF
[2016-11-16 05:16] LABS: BICARBONATE 28.5 MEQ/L (21.0-32.0); MAGNESIUM 1.7 MG/DL (1.5-2.5); POTASSIUM 3.6 MEQ/L (3.5-5.1)
[2016-11-16] MEDS: INSULIN ASPART SUPPLEMENTAL SCALE SQ SCH ×4 (06:00→23:41)
--- NOTE | 2016-11-16 07:11 | HHI.CCPN ---
Subjective Remarks/Hospital Course This 86 year-old woman who presents to the emergency department complaining of nausea vomiting, low back pain, and chills on 11/05/2016. She has a history of metastatic endometrial cancer diagnosed 5 years ago initially, as well as chronic back pain. The chronic back pain preceded the malignancy. Most recent PET scan as reported by daughter revealed multiple bony metastasis to include skull, and right upper arm. She underwent an L4-L5 [facility] ago [facility] . Prior to her surgery , the patient was extremely physically active without any ambulation difficulties.She was doing well initially but over the past several days complained of increased nausea vomiting, increased low back pain, and chills. Upon admission incision has not had any drainage or bleeding,and she denied any urinary symptoms. The patient was admitted to [facility] on 11/05/2016, she subsequently has begun to have leukocytosis, urinary retention and noted drainage from lumbar laminectomy surgical site. Lumbar CT scan revealed postop laminectomy L4 with fluid and scattered bubbles possibly resolving hematoma, abscess could not be excluded. ID and Neurosurgery was consulted.Critical care medicine is consult that for patients noted sepsis, and progressive weakness bilateral lower extremities. Subjective: 11/07 Seen upon return from the OR following lumbar wound debridement and evacuation of epidural abscess by Dr. Melissa. Patient is to remain intubated per Dr. Melissa as she must be maintained with HOB flat due to dural leak (but rotate side to side q2 hours). At present she is not on continuous sedation, but is unresponsive to deep noxious stimuli upon return from general anesthesia. Reportedly large amount of respiratory secretions noted upon intubation by anesthesia. Routine airway per documentation. She received 1800 crystalloid intraoperatively. EBL 20 ml. 11/08: Afebrile. Patient remains on propofol infusion, moving bilateral upper and lower extremities wiggling toes and moving upper extremities. The patient was inadvertently placed on fentanyl infusion last night for purported pain. Fentanyl infusion discontinued, patient on when necessary pain medicine now currently following commands and denies pain. Leukocytosis resolved, the patient continues on Flagyl, Vancomycin and Ceptazidime per ID Dr. Nina. The patient remains flat in bed, supine position in order to begin nutrition PPN was initiated this a.m.. Extensive discussion with Dr. eMlissa and Dr. Nina and palliative care consulted with planned discussion with family today. 11/09: Leukocytosis resolved. Wound culture was noted staph aureus. Patient was noted to have hypophosphatemia and hypomagnesemia ischemia which are being currently replaced. PPN was initiated for nutritional support secondary to put required positioning. Palliative care was consulted to discuss goals of care, currently aggressive treatment management continued per family request. 11/10: Afebrile .No acute events overnight. Patient underwent placement of CSF drain yesterday by interventional radiology. Patient's head of the bed to remain flat until Tuesday. The patient continues to have low phosphate and was placed on scheduled doses of phosphorus yesterday. Family requesting medication administration of vitamin C secondary to a small non-scientific research study that was published recently. Explained to family that it wasn't in evidence-based full research study performed but a small study without any level of evidence for implementation in the [place] at this time. Vitamin C is not indicated at this time. The family was educated by neurosurgery that the patient may have to possibly have surgery. 11/11 Tmax 99.0. The patient's CSF lumbar drain reevaluated by Dr. Melissa last evening, now draining fluid. No further drainage from surgical site. The patient remains in a supine position, PPN infusing for nutritional support. Her electrolytes continually being replaced per protocol. The patient remains on low-dose propofol infusion. Patient responsive following commands. 11/12: Patient was noted not to be moving upper extremities on command. Patient off sedation greater than 24 hours. MRI obtained today. Patient will return to surgery with Dr. Melissa. Lumbar drain dressing dry, with CSF draining. 11/13: The patient returned to neurosurgery yesterday, new lumbar drain placed. Minimal movement of bilateral upper extremities noted this a.m.. Patient moving hands minimally lifting arms, wiggling fingers and toes. 11/14:Afebrile: No acute changes overnight. Patient responsive to family, follows commands. The patient continues to be in supine position only to be log rolled secondary. Lumbar drain patent. 11/15 Patient remains intubated. On no sedation awake. Afebrile. Patient is in supine position lumbar drain in place. 11/16 No acute events overnight. Awake on ACV with PEEP:5 and FIO2 35%. On no sedation. Objective Vital Signs Date Time Temp Pulse Resp B/P Pulse Ox O2 Delivery O2 Flow Rate FiO2 4/18/17 06:00 95 11/16/16 04:05 97 30 11/16/16 04:00 99.0 21 139/62 147/60 Intake and Output 11/15/16 11/15/16 11/16/16 08:00 16:00 00:00 Intake Total 430 ml 579 ml 436 ml Output Total 309 ml 525 ml 461 ml Balance 121 ml 54 ml -25 ml Result Diagram: 11/16/16 0340 11/16/16 0340 Other Results Laboratory Tests Test 11/16/16 03:40 White Blood Count 7.5 TH/MM3 Red Blood Count 2.68 MIL/MM3 Hemoglobin 8.6 GM/DL Hematocrit 24.6 % Mean Corpuscular Volume 91.8 FL Mean Corpuscular Hemoglobin 32.0 PG Mean Corpuscular Hemoglobin 34.9 % Concent Red Cell Distribution Width 14.1 % Platelet Count 287 TH/MM3 Mean Platelet Volume 9.0 FL Neutrophils (%) (Auto) 76.2 % Lymphocytes (%) (Auto) 5.0 % Monocytes (%) (Auto) 15.5 % Eosinophils (%) (Auto) 2.7 % Basophils (%) (Auto) 0.6 % Neutrophils # (Auto) 5.7 TH/MM3 Lymphocytes # (Auto) 0.4 TH/MM3 Monocytes # (Auto) 1.2 TH/MM3 Eosinophils # (Auto) 0.2 TH/MM3 Basophils # (Auto) 0.0 TH/MM3 CBC Comment AUTO DIFF Sodium Level 133 MEQ/L Potassium Level 3.6 MEQ/L Chloride Level 96 MEQ/L Carbon Dioxide Level 28.5 MEQ/L Anion Gap 9 MEQ/L Blood Urea Nitrogen 17 MG/DL Creatinine 0.40 MG/DL Estimat Glomerular Filtration 152 ML/MIN Rate Random Glucose 119 MG/DL Calcium Level 8.4 MG/DL Phosphorus Level 2.5 MG/DL Magnesium Level 1.7 MG/DL Imaging Last Impressions Chest X-Ray 11/15/16 0600 Signed Impressions: Service Date/Time: Tuesday, November 15, 2016 04:15 - CONCLUSION: Tubes and catheters are in good position. Mild pulmonary vascular congestion persists Jimi Schrader MD Thoracic Spine MRI 11/12/16 0000 Signed Impressions: Service Date/Time: Saturday, November 12, 2016 11:46 - CONCLUSION: 1. Degenerative changes but no canal or foraminal narrowing. 2. No evidence for abscess. 3. T5 and T2 vertebral body lesions are noted. Metastatic deposits are not excluded. 4. Extensive subcutaneous edema of the upper thorax and cervical region. 5. Large bilateral pleural effusions. Jesús Anderson MD Lumbar Spine X-Ray 11/12/16 Signed Impressions: Service Date/Time: Saturday, November 12, 2016 21:53 - CONCLUSION: 1. Postsurgical changes as above. Reed George MD Lumbar Spine MRI 11/12/16 0000 Signed Impressions: Service Date/Time: Saturday, November 12, 2016 11:46 - CONCLUSION: 1. Complex fluid collection appears slightly increased in sagittal dimension with rim enhancement and marked surrounding edema and enhancement of the paraspinal soft tissues. This is consistent with the clinical history of abscess. 2. There is severe associated spinal stenosis secondary to mass effect from the fluid collection. Jesús Anderson MD Cervical Spine MRI 11/12/16 0000 Signed Impressions: Service Date/Time: Saturday, November 12, 2016 11:46 - CONCLUSION: 1. No evidence for abscess. 2. Nonspecific enhancing lesion of the T2 vertebral body, as well as diffuse decreased T1 signal involving the C7 pedicle and transverse process. The possibility of metastatic disease should be excluded. 3. Severe canal stenosis with cord compression at C5-6 and moderate canal stenosis at C4-5. Jesús Anderson MD ADDENDUM: There is extensive subcutaneous edema of the cervical and upper thoracic subcutaneous tissues posteriorly. Jesús Anderson MD Brain MRI 11/12/16 0000 Signed Impressions: Service Date/Time: Saturday, November 12, 2016 11:46 - CONCLUSION: 1. There are no findings to indicate acute infarct. 2. Abnormal signal layering within the occipital horns bilaterally likely representing a small amount of blood products. This finding is new compared to the prior CT. 3. Chronic changes include generalized atrophy and periventricular white matter change characteristic of chronic microvascular ischemia. Naveed Smith MD Lumbar Puncture Fluoroscopy 11/09/16 0000 Signed Impressions: Service Date/Time: Wednesday, November 09, 2016 16:21 - CONCLUSION: Uncomplicated lumbar drain placement as above. Naveed Rosenthal MD Entire Spine MRI 11/06/16 0000 Signed Impressions: Service Date/Time: Sunday, November 06, 2016 14:28 - CONCLUSION: 1. As noted on the MRI lumbar spine there is a complex fluid collection in the soft tissues posterior to the spinal canal at the level of L4 measuring 3.4 x 3.1 x 3.9 cm suggestive of a postoperative hematoma/seroma. An abscess cannot be excluded. 2. Abnormal signal in the body of T2 suspicious for bony metastatic disease. 3. Status post fusion of C6-7. 4. Broad-based bulging with disc osteophyte complexes at C4-5 and C5-6. Possible myelopathy in the cord at this level. Patrick Chavez MD Lumbar Spine CT 11/05/16 0000 Signed Impressions: Service Date/Time: Saturday, November 05, 2016 04:14 - CONCLUSION: 1. Postop laminectomy at L4 level with fluid within the operative bed and a few scattered gas bubbles may be postsurgical change and possibly resolving hematoma, however abscess is not excluded. No definite signs of osteomyelitis. 2. Neural foramina compromise left L2-L3, bilateral L4-L5. 3. Bilateral masses compromise L5-S1. 4. Residual slight thecal sac stenosis may be present at L3-4 and L4-5. Deangelo Monsivais MD Head CT 11/05/16 0000 Signed Impressions: Service Date/Time: Saturday, November 05, 2016 16:08 - CONCLUSION: 1. No acute intracranial abnormality. Hussain Sandoval MD Abdomen/Pelvis CT 11/05/16 0000 Signed Impressions: Service Date/Time: Saturday, November 05, 2016 16:12 - CONCLUSION: 1. There is residual IV contrast within the kidneys and bladder. 2. There are no findings to indicate a bowel obstruction. 3. The patient is post hysterectomy. Hussain Sandoval MD Objective Remarks Drips: PPN 42cc/hr GENERAL: Elderly female who is orotracheally intubated and sedated SKIN: Warm and dry. HEAD: Atraumatic. Normocephalic. EYES: Pupils 2 mm bilaterally and sluggishly reactive. No scleral icterus. No injection or drainage. ENT: No nasal bleeding or discharge. NECK: Trachea midline. No JVD. CARDIOVASCULAR: Normal rate, regular rhythm. 2/6 systolic murmur left sternal border RESPIRATORY: No accessory muscle use. ET tube in place. Occasional coarse rhonchi. On mechanical ventilation ACV tidal volume 450/rate 15/PEEP 5/FiO2 35% GASTROINTESTINAL: Healed abdominal incision noted. Bowel sounds hypoactive. No tenderness appreciable : Jean-Baptiste in place with light yellow urine output. MUSCULOSKELETAL: Extremities without clubbing, cyanosis, 2+ peripheral edema bilateral upper extremity. No obvious deformities. NEUROLOGICAL: RASS 0. Opens eyes, follows commands with squeeze bilateral hands , moving upper arms flexion and extension,. Does move bilateral feet including plantar flexion with minimal extension. A/P Assessment and Plan Plan by systems: Neurologic: Metabolic encephalopathy secondary to sepsis Lumbar epidural abscess Status post lumbar wound debridement and drainage epidural abscess 11/07/16 (Dr. Melissa) S/P exploration, irrigation and replacement of lumbar drain 11/12/16 (Dr. Melissa) GCS 11T-responsive, following commands Neurochecks every 2 hour per ICU protocol 11/05 CT lumbar spine-postop laminectomy L4 with fluid and scattered bubbles possibly resolving hematoma. Abscess cannot be excluded. Neural foraminotomy not compromise left L2-3, L4-L5, residual thecal sac stenosis may be present L3 L4, L4-L5,B/L mass compromise L5-S1. MRI -post surgical changes with hematoma/seroma ? Abscess L3/L4 and L4/L5. 11/07-postop CSF leak, spinal epidural abscess, postoperative wound dehiscence, pre-existing dural tear with repair, status post debridement lumbar wound dehiscence, evacuation of lumbar abscess indirect repair of pre-existing dural tear Reportedly persistent dural leak noted intraoperatively. Patient is to remain head of bed down/supine per Dr. Melissa. EEG 11/06/16moderately slow background consistent with encephalopathy. No epileptiform features. Neurology following, Dr. Thomson NSG following, Dr. Melissa 11/09 IR CSF drain L1-L2 11/12 CT lumbar spine L3-4, L4-5 mass effect. 11/12 Replacement of lumbar drain and evaluation in OR 11/12 CT [id number] cervical moderate left foraminal stenosis, C3-C4 severe left foraminal stenosis, C4-C5 mild bilateral foraminal stenosis mild abutment of ordered, C5-C6 mild cord compression 11/12 CT thoracic-T2 and T5 lesion cannot rule out metastasis Monitor Lumbar drainage ( drained 174ml ). NSG-Dr. Melissa Respiratory: Acute respiratory failure Duo nebs every 6 hours scheduled ACV RR 15, TV 450, PEEP:5 and FIO2 30% Ventilator bundle Maintain head of bed flat per neurosurgery recommendations CT [id number] bilateral pleural effusions, T2 and T5 lesions cannot rule out metastatic disease Cardiovascular: Monitor HR and BP Maintain MAP > 65 mmHg FEN/RENAL Acute kidney injury- resolved Neurogenic bladder with urinary retention. Hyponatremia Monitor renal function, I/O's, Electrolyte replacement per ICU protocol GI: Moderate protein energy malnutrition PPN Patient position supine, unable to begin tube feeds. PPN at 42 cc/hour with lipid supplementation 11/[address] Hale, no GI issues identified. OGT to [facility]WS ID: Severe sepsis-resolved Leukocytosis-resolved Bandemia Abx per ID ( Cefazolin) monitor for signs of infections ( Fever, WBC) HEME: Metastatic Endometrial cancer s/p recent chemotherapy 10/06 Chronic anemia Monitor CBC Endocrine: Low-dose insulin sliding scale at bedside glucose every 6 hours. GI Prophylaxis Pepcid twice a day DVT Prophylaxis -- SCDs. Hold pharmacologic DVT prophylaxis defer to neurosurgery when to initiate. ACCESS: Port accessed right chest. Left radial art line placed in OR / Palliative care following CCT 30 mins Yves Sanchez MD Nov 16, 2016 07:11
[2016-11-16 08:18] LABS: SCAN/DIFF AUTO DIFF CONFIRMED
[2016-11-16] MEDS: SODIUM CHLORIDE 1 GRAM TAB PO SCH ×2 (09:26→19:42)
[2016-11-16] MEDS: PROPOFOL 1000 MG/100 ML INJ 100 ML IV SCH ×2 (09:26→13:58)
[2016-11-16] MEDS: POTASSIUM PHOSPHATE MONOBASIC 500 MG TAB PO SCH (09:26)
[2016-11-16] MEDS: SODIUM CHLORIDE 0.9% FLUSH 10 ML FLUSH IV FLUSH SCH ×2 (09:26→19:42)
[2016-11-16] MEDS: CHLORHEXIDINE 0.12% (ORAL KIT) 15 ML CUP MT SCH ×2 (09:27→19:42)
--- NOTE | 2016-11-16 09:59 | HHI.PR ---
Subjective Remarks On ventilator no sedation. Following commands. Objective Vital Signs Date Time Temp Pulse Resp B/P Pulse Ox O2 Delivery O2 Flow Rate FiO2 11/16/16 07:58 99 30 11/16/16 06:00 95 11/16/16 04:05 97 30 11/16/16 04:00 30 11/16/16 04:00 98 11/16/16 04:00 99.0 98 21 139/62 95 147/60 11/16/16 02:00 93 11/16/16 01:02 99 30 11/16/16 00:00 98.8 93 15 111/59 98 137/54 11/16/16 00:00 96 11/16/16 00:00 30 11/15/16 23:05 99 30 11/15/16 22:00 103 11/15/16 20:00 30 11/15/16 20:00 98.6 98 15 107/55 98 104/49 11/15/16 20:00 98 11/15/16 18:00 98 11/15/16 17:11 98 30 11/15/16 16:15 18 11/15/16 16:00 96 11/15/16 16:00 30 11/15/16 16:00 98.5 96 17 108/54 95 115/47 11/15/16 14:00 97 11/15/16 12:00 89 15 98 125/48 11/15/16 12:00 89 11/15/16 12:00 30 11/15/16 11:21 97 30 11/15/16 10:00 87 I/O 11/15/16 11/15/16 11/15/16 11/16/16 11/16/16 11/16/16 07:00 15:00 23:00 07:00 15:00 23:00 Intake Total 430 ml 579 ml 436 ml 469 ml Output Total 309 ml 525 ml 461 ml 788 ml Balance 121 ml 54 ml -25 ml -319 ml Intake IV Total 80 ml 50 ml 38 ml TPN/PPN 282 ml 468 ml 263 ml 300 ml Lipid 68 ml 111 ml 63 ml 71 ml Other 60 ml 60 ml Output Urine Total 250 ml 450 ml 200 ml 650 ml Stool Total 0 ml Gastric Drainage Total 200 ml 100 ml Drainage Total 59 ml 75 ml 61 ml 38 ml # Bowel Movements 0 0 Result Diagram: 11/16/16 0340 11/16/16 0340 Procedures replacement of CSF drain and dural patch 11/12 evacuation of epidural abscess 11/07 had laminectomy 2 weeks ago Objective Remarks GENERAL: Sedated on ventilator SKIN: Warm and dry. Lumbar dressing on back HEAD: Normocephalic. EYES: No scleral icterus. No injection or drainage. NECK: Supple, trachea midline. No JVD or lymphadenopathy. CARDIOVASCULAR: Regular rate and rhythm without murmurs, gallops, or rubs. RESPIRATORY: Breath sounds equal bilaterally. No accessory muscle use. Intubated GASTROINTESTINAL: Abdomen soft, non-tender, nondistended. MUSCULOSKELETAL: No cyanosis. Generalized edema Medications and IVs Current Medications Medications (Trade) Dose Ordered Sig/Aleja Route Start Time Stop Time Status Last Admin (Tylenol Supp) 650 mg Q4H PRN RECTAL 11/05/16 18:30 11/05/16 18:30 (NS Flush) 2 ml UNSCH PRN IV FLUSH 11/06/16 12:30 11/11/16 08:31 (NS Flush) 2 ml BID IV FLUSH 11/06/16 21:00 11/16/16 09:26 (Tylenol) 650 mg Q6H PRN PO 11/06/16 12:30 11/08/16 16:01 (Zofran Inj) 4 mg Q6H PRN IV 11/06/16 12:30 (Dulcolax Supp) 10 mg DAILY PRN RECTAL 11/06/16 12:30 Miscellaneous Information 1 Q361D XX 11/06/16 12:30 (Chlorhexidine 2% Cloth) Taper DAILY@04 TOP 11/07/16 04:00 11/03/17 03:59 11/15/16 04:00 Chlorhexidine Gluconate 3 pack 3 pack UNSCH PRN TOP 11/06/16 12:30 (Diprivan 1000 Mg/100ml Inj) 100 ml @ 0 mls/hr TITRATE IV 11/07/16 03:45 11/16/16 09:26 (Peridex 0.12% Liq) 15 ml BID@08,20 MT 11/07/16 08:00 11/16/16 09:27 (D50w (Vial) Inj) 25 ml UNSCH PRN IV PUSH 11/07/16 04:15 (Glucagon Inj) 1 mg UNSCH PRN OTHER 11/07/16 04:15 Insulin Aspart 1 1 Q6H SQ 11/07/16 06:00 11/12/16 17:09 Potassium Chloride 100 ml @ 50 mls/hr Q2H PRN IV-CENTRAL 11/07/16 08:45 11/07/16 23:30 Potassium Chloride 100 ml @ 50 mls/hr Q2H PRN IV 11/07/16 08:45 Potassium Chloride 100 ml @ 25 mls/hr UNSCH PRN IV-CENTRAL 11/07/16 08:45 Potassium Chloride 100 ml @ 50 mls/hr Q2H PRN IV 11/07/16 08:45 11/11/16 08:30 (Magnesium Sulfate Inj/NS Inj) 100 ml @ 50 mls/hr UNSCH PRN IV 11/07/16 08:45 Magnesium Oxide 800 mg 800 mg UNSCH PRN PO 11/07/16 08:45 11/11/16 08:31 (Magnesium Sulfate Inj/NS Inj) 100 ml @ 50 mls/hr UNSCH PRN IV 11/07/16 08:45 11/12/16 08:42 Potassium Phosphate 2000 mg 2,000 mg Q4H PRN PO 11/07/16 08:45 11/12/16 08:42 (Sodium Phosphate Inj/NS 250 ml Inj) 250 ml @ 42 mls/hr UNSCH PRN IV 11/07/16 08:45 Potassium Phosphate 2000 mg 2,000 mg UNSCH PRN PO/TUBE 11/07/16 08:45 (Potassium Phosphate Inj/NS 250 ml Inj) 260 ml @ 42 mls/hr UNSCH PRN IV 11/07/16 08:45 11/10/16 06:09 (Pepcid Inj) 20 mg Q12H IV PUSH 11/07/16 16:00 11/16/16 04:25 Metoprolol Tartrate 2.5 mg 2.5 mg Q6H PRN IV PUSH 11/08/16 14:45 11/12/16 05:08 Multivitamins 10 ml/Folic Acid 1 mg/Amino Acids/ Electrolytes/ Dextrose 1,010.2 ml @ 42 mls/hr Q24H IV 11/08/16 20:00 11/15/16 18:34 (Liposyn Iii 20% Inj) 250 ml @ 10 mls/hr Q24H IV 11/08/16 20:00 11/15/16 18:33 Hydromorphone HCl 1 mg 1 mg Q2HR PRN IV PUSH 11/08/16 15:45 11/16/16 04:25 (1/2 NS 1000 ml Inj) 1,000 ml @ 0 mls/hr Q0M IV 11/09/16 09:53 (K-Phos) 500 mg DAILY PO 11/10/16 09:00 11/16/16 09:26 (Trandate Inj) 10 mg Q1H PRN IV 11/13/16 01:30 11/13/16 09:09 Sodium Chloride 2 gm 2 gm BID PO 11/13/16 14:00 11/16/16 09:26 (Ancef 2 Gm Premix) 50 ml @ 100 mls/hr Q8H IV 11/13/16 22:00 11/16/16 04:26 Assessment and Plan Problem List: (1) Spinal epidural abscess Status: Acute Plan: Patient to surgery on an urgent basis on the for evacuation of epidural abscess, wound debridement. Patient found to have pre-existing dural tear with CSF leakage which could not be primarily repaired. Indirect repair of dural tear with blood clot, Gelfoam, thrombin, tissue glue and reclosure of wound site. Dressing on site. Lumbar drain place draining Palliative care consult ordered continue with aggressive care per family request. (2) Sepsis Status: Acute Plan: ID consulted and managing. On antibiotics. WBC stable at 7.3 (3) Respiratory failure Status: Acute Plan: French Polisher managing. On ventilator no sedation. Following commands (4) Anemia Status: Acute Plan: HGB stable at 8.6 monitoring (5) Abnormal blood electrolyte level Status: Acute Plan: Resolved monitored daily Assessment and Plan Assessment and plan discussed with Dr. Kendrick. Palliative care following Dayanara Barbour Nov 16, 2016 09:59
--- NOTE | 2016-11-16 17:36 | HHI.HCPN ---
Reason for visit a. To assist with evaluation and management of symptoms including: pain, weakness. b. To assist medical decision maker(s) with: better understanding of current medical conditions; weighing benefits/burdens of medical treatment options; making medical treatment decisions. . Subjective/Interval History Patient seen and examined in ICU. and daughter at bedside. Discussed with nurse, Adal. Patient is sedated on Diprivan. [facility] in supine position per neurosurgery orders. Nurse indicates Dr. Melissa will reevaluate plan of care again 11/17/16 in terms of drain and sitting patient up. Will attempt CPAP trials once HOB able to be elevated. Drain remains in place training clear yellow fluid. CSF cultures dated 11/12/16 negative. Tmax 98. Vital signs stable. WBC 7.5, hemoglobin 8.6, hematocrit 24.6 , platelets 287. Remains on PPN/lipids. . Family/friend interactions Spoke with and daughter. Medical update provided. Reviewed how vent weaning occurs. Questions answered to their satisfaction. Offered support. Will continue to follow. . Advance Directives Living Will: Never completed Health Care Surrogate: Never completed Durable Power of Material Hauler: Never completed Advance Directive Specifics Health Care Surrogate(s): Patient is currently incapacitated to make her own health care decisions. According to [place] statutes health care proxy decision-making falls to the patient's spouse. He is supported by their daughter, Anna. . Significant change in goals: FULL CODE. Desires continued aggressive care, family remains hopeful for recovery. . Objective Vital Signs Date Time Temp Pulse Resp B/P Pulse Ox O2 Delivery O2 Flow Rate FiO2 11/16/16 16:00 86 11/16/16 14:00 84 11/16/16 12:00 91 11/16/16 12:00 30 11/16/16 12:00 98.8 98 18 102/59 92 118/59 11/16/16 11:35 95 30 11/16/16 10:00 88 11/16/16 08:00 106 11/16/16 08:00 30 11/16/16 08:00 98.9 106 26 138/80 97 158/66 11/16/16 07:58 99 30 11/16/16 06:00 95 11/16/16 04:05 97 30 11/16/16 04:00 30 11/16/16 04:00 98 11/16/16 04:00 99.0 98 21 139/62 95 147/60 11/16/16 02:00 93 11/16/16 01:02 99 30 11/16/16 00:00 98.8 93 15 111/59 98 137/54 11/16/16 00:00 96 11/16/16 00:00 30 11/15/16 23:05 99 30 11/15/16 22:00 103 11/15/16 20:00 30 11/15/16 20:00 98.6 98 15 107/55 98 104/49 11/15/16 20:00 98 11/15/16 18:00 98 Intake & Output 11/16/16 11/16/16 07:00 19:00 Intake Total 905 ml 566 ml Output Total 1249 ml 1570 ml Balance -344 ml -1004 ml Intake IV Total 88 ml 47 ml TPN/PPN 563 ml 421 ml Lipid 134 ml 98 ml Other 120 ml Output Urine Total 850 ml 1500 ml Gastric Drainage Total 300 ml Drainage Total 99 ml 70 ml # Bowel Movements 0 Physical Exam CONSTITUTIONAL/GENERAL: This is critically ill patient on mechanical ventilation. TUBES/LINES/DRAINS: ETT, bite block, OG, right chest port, PIV, Jean-Baptiste, bilateral soft wrist restraints, SCD's. Lumbar subarachnoid drain. SKIN: Ecchymoses on upper extremities. No wounds seen anteriorly. Skin temperature appropriate. Not diaphoretic. EYES: Opens eyes slightly to voice. No scleral icterus or injection. CARDIOVASCULAR: Regular rate and rhythm. Systolic murmur noted left sternal border. RESPIRATORY/CHEST: Symmetric, unlabored respirations on mechanical vent. Bilateral course breath sounds. GASTROINTESTINAL: Abdomen soft, mildly distended. No guarding. Bowel sounds hypoactive. GENITOURINARY: Without palpable bladder distension. Jean-Baptiste catheter in place. MUSCULOSKELETAL: Extremities with edema. No mottling or clubbing. NEUROLOGICAL: Sedated today. . Diagnostic Tests Laboratory Laboratory Tests Test 11/14/16 11/15/16 11/16/16 04:05 04:00 03:40 White Blood Count 9.2 TH/MM3 11.0 TH/MM3 7.5 TH/MM3 (4.0-11.0) (4.0-11.0) (4.0-11.0) Red Blood Count 2.74 MIL/MM3 2.94 MIL/MM3 2.68 MIL/MM3 (4.00-5.30) (4.00-5.30) (4.00-5.30) Hemoglobin 9.0 GM/DL 9.5 GM/DL 8.6 GM/DL (11.6-15.3) (11.6-15.3) (11.6-15.3) Hematocrit 25.3 % 27.3 % 24.6 % (35.0-46.0) (35.0-46.0) (35.0-46.0) Mean Corpuscular Volume 92.5 FL 93.1 FL 91.8 FL (80.0-100.0) (80.0-100.0) (80.0-100.0) Mean Corpuscular Hemoglobin 33.0 PG 32.5 PG 32.0 PG (27.0-34.0) (27.0-34.0) (27.0-34.0) Mean Corpuscular Hemoglobin 35.6 % 34.9 % 34.9 % Concent (32.0-36.0) (32.0-36.0) (32.0-36.0) Red Cell Distribution Width 13.8 % 14.0 % 14.1 % (11.6-17.2) (11.6-17.2) (11.6-17.2) Platelet Count 248 TH/MM3 306 TH/MM3 287 TH/MM3 (150-450) (150-450) (150-450) Mean Platelet Volume 8.9 FL 9.0 FL 9.0 FL (7.0-11.0) (7.0-11.0) (7.0-11.0) Neutrophils (%) (Auto) 79.6 % 76.2 % (16.0-70.0) (16.0-70.0) Lymphocytes (%) (Auto) 4.2 % 5.0 % (9.0-44.0) (9.0-44.0) Monocytes (%) (Auto) 12.6 % 15.5 % (0.0-8.0) (0.0-8.0) Eosinophils (%) (Auto) 3.1 % (0.0-4.0) 2.7 % (0.0-4.0) Basophils (%) (Auto) 0.5 % (0.0-2.0) 0.6 % (0.0-2.0) Neutrophils # (Auto) 7.3 TH/MM3 5.7 TH/MM3 (1.8-7.7) (1.8-7.7) Lymphocytes # (Auto) 0.4 TH/MM3 0.4 TH/MM3 (1.0-4.8) (1.0-4.8) Monocytes # (Auto) 1.2 TH/MM3 1.2 TH/MM3 (0-0.9) (0-0.9) Eosinophils # (Auto) 0.3 TH/MM3 0.2 TH/MM3 (0-0.4) (0-0.4) Basophils # (Auto) 0.0 TH/MM3 0.0 TH/MM3 (0-0.2) (0-0.2) CBC Comment AUTO DIFF AUTO DIFF Differential Total Cells 100 Counted Neutrophils % (Manual) 81 % (16-70) Band Neutrophils % 1 % (0-6) Lymphocytes % 3 % (9-44) Monocytes % 10 % (0-8) Eosinophils % 2 % (0-4) Basophils % 1 % (0-2) Neutrophils # (Manual) 7.7 TH/MM3 (1.8-7.7) Myelocytes 2 % (0-0) Differential Comment FINAL DIFF AUTO DIFF MANUAL CONFIRMED Platelet Estimate NORMAL (NORMAL) Platelet Morphology Comment NORMAL (NORMAL) Red Cell Morphology Comment NORMAL (NORMAL) Sodium Level 134 MEQ/L 132 MEQ/L 133 MEQ/L (136-145) (136-145) (136-145) Potassium Level 3.6 MEQ/L 3.7 MEQ/L 3.6 MEQ/L (3.5-5.1) (3.5-5.1) (3.5-5.1) Chloride Level 96 MEQ/L 95 MEQ/L 96 MEQ/L (98-107) (98-107) (98-107) Carbon Dioxide Level 29.7 MEQ/L 29.4 MEQ/L 28.5 MEQ/L (21.0-32.0) (21.0-32.0) (21.0-32.0) Anion Gap 8 MEQ/L (5-15) 8 MEQ/L (5-15) 9 MEQ/L (5-15) Blood Urea Nitrogen 13 MG/DL (7-18) 17 MG/DL (7-18) 17 MG/DL (7-18) Creatinine 0.29 MG/DL 0.39 MG/DL 0.40 MG/DL (0.50-1.00) (0.50-1.00) (0.50-1.00) Estimat Glomerular Filtration 220 ML/MIN 156 ML/MIN 152 ML/MIN Rate (>89) (>89) (>89) Random Glucose 133 MG/DL 136 MG/DL 119 MG/DL (74-106) (74-106) (74-106) Calcium Level 8.3 MG/DL 8.3 MG/DL 8.4 MG/DL (8.5-10.1) (8.5-10.1) (8.5-10.1) Phosphorus Level 2.3 MG/DL 2.6 MG/DL 2.5 MG/DL (2.5-4.9) (2.5-4.9) (2.5-4.9) Magnesium Level 1.6 MG/DL 1.7 MG/DL 1.7 MG/DL (1.5-2.5) (1.5-2.5) (1.5-2.5) Result Diagram: 11/16/16 0340 11/16/16 0340 Microbiology Microbiology Date/Time Procedure Status Source Growth 11/12/16 21:57 Gram Stain - Final Complete Cerebral Spinal Fluid Shunt Fluid 11/12/16 21:57 CSF Culture - Final Complete Cerebral Spinal Fluid Shunt Fluid NO GROWTH IN 72 HRS.--AEROBICALLY OR ... 11/12/16 21:57 Fungal Smear - Final Resulted Cerebral Spinal Fluid Shunt Fluid NO FUNGAL ELEMENTS SEEN. 11/12/16 21:57 Fungal Culture Resulted Cerebral Spinal Fluid Shunt Fluid Pending 11/12/16 21:57 Acid Fast Stain - Final Resulted Cerebral Spinal Fluid Shunt Fluid NO ACID FAST BACILLI SEEN 11/12/16 21:57 Mycobacterial Culture Resulted Cerebral Spinal Fluid Shunt Fluid Pending 11/12/16 21:57 Cancelled Fluid Other 11/12/16 21:57 Cancelled Fluid Other 11/12/16 21:57 Cancelled Fluid Other 11/12/16 21:57 Cancelled Cerebral Spinal Fluid Lumbar Puncture . Imaging Last Impressions Chest X-Ray 11/15/16 0600 Signed Impressions: Service Date/Time: Tuesday, November 15, 2016 04:15 - CONCLUSION: Tubes and catheters are in good position. Mild pulmonary vascular congestion persists Jimi Schrader MD Thoracic Spine MRI 11/12/16 0000 Signed Impressions: Service Date/Time: Saturday, November 12, 2016 11:46 - CONCLUSION: 1. Degenerative changes but no canal or foraminal narrowing. 2. No evidence for abscess. 3. T5 and T2 vertebral body lesions are noted. Metastatic deposits are not excluded. 4. Extensive subcutaneous edema of the upper thorax and cervical region. 5. Large bilateral pleural effusions. Jesús Anderson MD Lumbar Spine X-Ray 11/12/16 0000 Signed Impressions: Service Date/Time: Saturday, November 12, 2016 21:53 - CONCLUSION: 1. Postsurgical changes as above. Reed George MD Lumbar Spine MRI 11/12/16 0000 Signed Impressions: Service Date/Time: Saturday, November 12, 2016 11:46 - CONCLUSION: 1. Complex fluid collection appears slightly increased in sagittal dimension with rim enhancement and marked surrounding edema and enhancement of the paraspinal soft tissues. This is consistent with the clinical history of abscess. 2. There is severe associated spinal stenosis secondary to mass effect from the fluid collection. Jesús Anderson MD Cervical Spine MRI 11/12/16 0000 Signed Impressions: Service Date/Time: Saturday, November 12, 2016 11:46 - CONCLUSION: 1. No evidence for abscess. 2. Nonspecific enhancing lesion of the T2 vertebral body, as well as diffuse decreased T1 signal involving the C7 pedicle and transverse process. The possibility of metastatic disease should be excluded. 3. Severe canal stenosis with cord compression at C5-6 and moderate canal stenosis at C4-5. Jesús Anderson MD ADDENDUM: There is extensive subcutaneous edema of the cervical and upper thoracic subcutaneous tissues posteriorly. Jesús Anderson MD Brain MRI 11/12/16 0000 Signed Impressions: Service Date/Time: Saturday, November 12, 2016 11:46 - CONCLUSION: 1. There are no findings to indicate acute infarct. 2. Abnormal signal layering within the occipital horns bilaterally likely representing a small amount of blood products. This finding is new compared to the prior CT. 3. Chronic changes include generalized atrophy and periventricular white matter change characteristic of chronic microvascular ischemia. Naveed Smith MD Lumbar Puncture Fluoroscopy 11/09/16 0000 Signed Impressions: Service Date/Time: Wednesday, November 09, 2016 16:21 - CONCLUSION: Uncomplicated lumbar drain placement as above. Naveed Rosenthal MD Entire Spine MRI 11/06/16 0000 Signed Impressions: Service Date/Time: Sunday, November 06, 2016 14:28 - CONCLUSION: 1. As noted on the MRI lumbar spine there is a complex fluid collection in the soft tissues posterior to the spinal canal at the level of L4 measuring 3.4 x 3.1 x 3.9 cm suggestive of a postoperative hematoma/seroma. An abscess cannot be excluded. 2. Abnormal signal in the body of T2 suspicious for bony metastatic disease. 3. Status post fusion of C6-7. 4. Broad-based bulging with disc osteophyte complexes at C4-5 and C5-6. Possible myelopathy in the cord at this level. Patrick Chavez MD Lumbar Spine CT 11/05/16 0000 Signed Impressions: Service Date/Time: Saturday, November 05, 2016 04:14 - CONCLUSION: 1. Postop laminectomy at L4 level with fluid within the operative bed and a few scattered gas bubbles may be postsurgical change and possibly resolving hematoma, however abscess is not excluded. No definite signs of osteomyelitis. 2. Neural foramina compromise left L2-L3, bilateral L4-L5. 3. Bilateral masses compromise L5-S1. 4. Residual slight thecal sac stenosis may be present at L3-4 and L4-5. Deangelo Monsivais MD Head CT 11/05/16 0000 Signed Impressions: Service Date/Time: Saturday, November 05, 2016 16:08 - CONCLUSION: 1. No acute intracranial abnormality. Hussain Sandoval MD Abdomen/Pelvis CT 11/05/16 0000 Signed Impressions: Service Date/Time: Saturday, November 05, 2016 16:12 - CONCLUSION: 1. There is residual IV contrast within the kidneys and bladder. 2. There are no findings to indicate a bowel obstruction. 3. The patient is post hysterectomy. Hussain Sandoval MD . Procedures * 11/07/16 - Intubation * 11/07/16: debridement lumbar wound dehiscence, evacuation lumbar epidural abscess, indirect repair pre-existing dural tear Dr. Melissa . Assessment and Plan Disease Oriented Problem List: (1) Spinal epidural abscess (2) Postoperative CSF leak (3) Respiratory failure (4) Postoperative wound dehiscence (5) Sepsis (6) Anemia (7) Dural tear (8) Weakness Symptom Scale: (1) Back pain 0-10 Scale: Unable to quantify Comment: Nods yes to pain, unable to qualify or quantify. (2) Weakness 0-10 Scale: Unable to quantify Pertinent Non-Medical Issues Psychosocial: . Spiritual: Che[employer] clif. Legal: patient currently incapacitated. No written advance directives. According to [place] [facility] health care proxy decision-making falls to patient 's spouse. He is supported by their daughter Anna. Ethical issues impacting care: No known concerns at this time. . Important Contacts * Khari Leos, spouse: [phone] * Anna Poon, daughter: [phone] . Prognosis In review of notes neurosurgery, counter clerk farm equipment parts and infectious disease feel it will be difficult to completely treat this infection due to chances of recurrence secondary to CSF leak. Neurosurgery, Dr. Melissa note indicates he advised the family "that it would be best to continue with the head of bed flat and intubation and sedation to keep her comfortable and avoid straining to allow the CSF leak to seal. She will be monitored closely for signs of recurrent infection or CSF leakage. However further MRI imaging may be problematic, as it will be difficult to determine if she has recurrent abscess versus blood clot formation which is been allowed to form and packing material which has been placed to try to seal the CSF leak." . Code Status: Full Code Plan * Decision Maker: patient currently incapacitated. No written advance directives. According to [place] [facility] health care proxy decision-making falls to patient's spouse. He is supported by their daughter Anna. * FULL CODE * Goals remain aggressive. * SYMPTOMS: Pain: unable to quantify or qualify pain, pain secondary to epidural abscess, recent surgeries, bedbound status and history of chronic back pain. 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 Weakness: secondary to epidural abscess, infection, dural tear s/p surgery again 11/13/16. Continue supine position at this time per neurosurgery recommendations. Dyspnea: currently sedated on mechanical ventilation. No new medication recommendations at this time. * Palliative care will continue to follow throughout hospital course to assist with symptom management and clarification of goals as needed. . Attestation To help prompt me to consider important information that might be impacting today's encounter and assessment, information from prior notes written by myself or my colleagues may have been "brought forward" into today's note. My signature on this note, however, is an attestation that I personally performed the exam, history, and/or decision-making noted today, and, unless otherwise indicated, the interactions with patient, family, and staff as well as the review of records all occurred today. I also attest that the listed assessment and stated plan reflect my best clinical judgment today based on the combination of historical information, prior notes, and today's exam/ interactions. When time spent is documented, it refers only to time spent today by the signer, or if indicated, combined time spent today by collaborating physician/nurse practitioner. CAMRYN ZEE Nov 16, 2016 17:36
--- NOTE | 2016-11-16 18:30 | HHI.NSPN ---
History Chief Complaint: intubated and sedated Interval History 86-year-old female with history of lumbar laminectomy approximately 2 weeks ago in [place]. Patient presents to the emergency room on 11/05/16 with decreasing mental status, GI symptoms, and subsequent opening of the wound with wound dehiscence and purulent drainage. 11/07/16: Patient to surgery on an urgent basis for evacuation of epidural abscess , wound debridement. Patient found to have pre-existing dural tear with CSF leakage which could not be primarily repaired. Indirect repair of dural tear with blood clot, Gelfoam, thrombin, tissue glue and reclosure of wound site. 11/08/16: Patient remains intubated, sedated, head of bed flat. Dressing dry and intact 11/09/16: Patient remains intubated. Slight amount of drainage noted from incision. Lumbar subarachnoid drain placed per interventional radiology 11/10/16: Lumbar subarachnoid drain is not functioning well. Discussed with nursing staff 11/11/16: Intermittent drainage from subarachnoid drain. Wound and dressing dry in the morning. 11/12/16: Subarachnoid drain with minimal output. Mild drainage from wound. Return to operating room for replacement subarachnoid drain, wound debridement, repeat closure of CSF leak Exam Results Vital Signs Date Time Temp Pulse Resp B/P Pulse Ox O2 Delivery O2 Flow Rate FiO2 11/16/16 18:00 82 11/16/16 16:00 30 11/16/16 16:00 98.4 26 146/78 94 128/56 Intake and Output 11/15/16 11/15/16 11/16/16 08:00 16:00 00:00 Intake Total 430 ml 579 ml 436 ml Output Total 309 ml 525 ml 461 ml Balance 121 ml 54 ml -25 ml Physical Examination Intubated. Opens eyes spontaneously & alert. Follows simple commands. CN: Pupils equal, tracks with eyes. Motor: Wiggling toes and ankles with moderate strength & squeezing hands to command. BUE with soft restraints. Lumbar drain with light yellow CSF draining, insertion site with dry dressing. Head of bed is flat. Lab, Micro, Other Results Laboratory Tests Test 11/16/16 03:40 White Blood Count 7.5 TH/MM3 Red Blood Count 2.68 MIL/MM3 Hemoglobin 8.6 GM/DL Hematocrit 24.6 % Mean Corpuscular Volume 91.8 FL Mean Corpuscular Hemoglobin 32.0 PG Mean Corpuscular Hemoglobin 34.9 % Concent Red Cell Distribution Width 14.1 % Platelet Count 287 TH/MM3 Mean Platelet Volume 9.0 FL Neutrophils (%) (Auto) 76.2 % Lymphocytes (%) (Auto) 5.0 % Monocytes (%) (Auto) 15.5 % Eosinophils (%) (Auto) 2.7 % Basophils (%) (Auto) 0.6 % Neutrophils # (Auto) 5.7 TH/MM3 Lymphocytes # (Auto) 0.4 TH/MM3 Monocytes # (Auto) 1.2 TH/MM3 Eosinophils # (Auto) 0.2 TH/MM3 Basophils # (Auto) 0.0 TH/MM3 CBC Comment AUTO DIFF Differential Comment AUTO DIFF CONFIRMED Sodium Level 133 MEQ/L Potassium Level 3.6 MEQ/L Chloride Level 96 MEQ/L Carbon Dioxide Level 28.5 MEQ/L Anion Gap 9 MEQ/L Blood Urea Nitrogen 17 MG/DL Creatinine 0.40 MG/DL Estimat Glomerular Filtration 152 ML/MIN Rate Random Glucose 119 MG/DL Calcium Level 8.4 MG/DL Phosphorus Level 2.5 MG/DL Magnesium Level 1.7 MG/DL Medical Decision Making Impression and Plan Impression: Status post repeat debridement lumbar wound dehiscence, replacement lumbar subarachnoid drain, indirect closure of CSF leak and dural tear. 11/12/16 Incision and dressing are dry this morning Plan: Continue lumbar subarachnoid drain Continue flat bed rest Plan out of bed 11/17/16 with continued lumbar subarachnoid drain if dressing remains dry Pratik Melissa MD Nov 16, 2016 18:30
[2016-11-16] MEDS: FAT EMULSION 20% INJ 250 ML (@10 mls/hr) IV SCH (19:42)
[2016-11-16] MEDS: CLINIMIX E 4.25/5 1000 mL- </= 42 mls/hr IV SCH ×3 (19:42)
[2016-11-17] VITALS (18 sets, daily range): BP systolic 89–165; BP diastolic 51–85; PULSE 90–118; RESP 15–22; TEMP 98–98.8; O2SAT 95–100
[2016-11-17] MEDS: PROPOFOL 1000 MG/100 ML INJ 100 ML IV SCH ×2 (01:38→10:23)
[2016-11-17] MEDS: CHLORHEXIDINE GLUCONATE 2 % 1 PACK (2 CLOTHS) TOP SCH (01:38)
[2016-11-17 04:14] LABS: AUTOMATED NEUTROPHIL # 5.5 TH/MM3 (1.8-7.7); BASOPHIL # 0.1 TH/MM3 (0-0.2); BASOPHIL % 0.9 % (0.0-2.0); EOSINOPHIL # 0.3 TH/MM3 (0-0.4); EOSINOPHIL % 4.1 % (0.0-4.0); HEMATOCRIT 24.8 % (35.0-46.0); HEMO FLAGS DIFF FINAL; LYMPH % 4.6 % (9.0-44.0); LYMPHOCYTE # 0.3 TH/MM3 (1.0-4.8); MEAN CELL VOLUME 92.7 FL (80.0-100.0); MEAN CORPUSCULAR HEMOGLOBIN 31.7 PG (27.0-34.0); MEAN CORPUSCULAR HGB CONC 34.2 % (32.0-36.0); MONO % 16.2 % (0.0-8.0); NEUT % 74.2 % (16.0-70.0); PLATELET COUNT 284 TH/MM3 (150-450); RED BLOOD COUNT 2.68 MIL/MM3 (4.00-5.30); RED CELL DISTRIBUTION WIDTH 14.4 % (11.6-17.2); WHITE BLOOD COUNT 7.4 TH/MM3 (4.0-11.0)
[2016-11-17 04:42] LABS: BICARBONATE 26.8 MEQ/L (21.0-32.0); POTASSIUM 3.4 MEQ/L (3.5-5.1)
[2016-11-17] MEDS: FAMOTIDINE 20 MG/2 ML VIAL IV PUSH SCH ×2 (05:52→15:31)
[2016-11-17] MEDS: ceFAZolin 2 GM PREMIX 50 ML IV SCH ×3 (05:52→22:30)
[2016-11-17] MEDS: INSULIN ASPART SUPPLEMENTAL SCALE SQ SCH ×3 (05:52→18:00)
[2016-11-17] MEDS: POTASSIUM CHLOR 20 MEQ PREMIX 100 ML IV PRN ×2 (05:53→07:53)
--- NOTE | 2016-11-17 06:34 | HHI.PR ---
Subjective Remarks On ventilator on light sedation Arousable with stimulus. Objective Vital Signs Date Time Temp Pulse Resp B/P Pulse Ox O2 Delivery O2 Flow Rate FiO2 11/17/16 06:00 106 11/17/16 04:13 100 30 11/17/16 04:00 100 11/17/16 04:00 98.5 100 16 125/59 100 140/57 11/17/16 04:00 30 11/17/16 02:00 96 11/17/16 01:06 100 30 11/17/16 00:00 93 11/17/16 00:00 30 11/17/16 00:00 98.0 93 15 119/62 100 141/62 11/16/16 22:05 100 30 11/16/16 22:00 93 11/16/16 20:00 30 11/16/16 20:00 98.4 92 15 147/72 100 173/74 11/16/16 20:00 92 11/16/16 19:05 100 30 11/16/16 18:00 82 11/16/16 16:00 30 11/16/16 16:00 98.4 79 26 146/78 94 128/56 11/16/16 16:00 17 11/16/16 16:00 86 11/16/16 14:00 84 11/16/16 12:00 91 11/16/16 12:00 30 11/16/16 12:00 98.8 98 18 102/59 92 118/59 11/16/16 11:35 95 30 11/16/16 10:00 88 11/16/16 08:00 106 11/16/16 08:00 30 11/16/16 08:00 98.9 106 26 138/80 97 158/66 11/16/16 07:58 99 30 I/O 11/16/16 11/16/16 11/16/16 11/17/16 11/17/16 11/17/16 07:00 15:00 23:00 07:00 15:00 23:00 Intake Total 469 ml 566 ml 496 ml 513 ml Output Total 788 ml 1570 ml 660 ml 500 ml Balance -319 ml -1004 ml -164 ml 13 ml Intake IV Total 38 ml 47 ml 96 ml 147 ml TPN/PPN 300 ml 421 ml 275 ml 296 ml Lipid 71 ml 98 ml 65 ml 70 ml Other 60 ml 60 ml Output Urine Total 650 ml 1500 ml 500 ml 350 ml Gastric Drainage Total 100 ml 100 ml 100 ml Drainage Total 38 ml 70 ml 60 ml 50 ml # Bowel Movements 0 0 0 Result Diagram: 11/17/1631411/17/16314 Procedures replacement of CSF drain and dural patch 11/12 evacuation of epidural abscess 11/07 had laminectomy 2 weeks ago Objective Remarks GENERAL: Sedated on ventilator SKIN: Warm and dry. Lumbar dressing on back HEAD: Normocephalic. EYES: No scleral icterus. No injection or drainage. NECK: Supple, trachea midline. No JVD or lymphadenopathy. CARDIOVASCULAR: Regular rate and rhythm without murmurs, gallops, or rubs. RESPIRATORY: Breath sounds equal bilaterally. No accessory muscle use. Intubated GASTROINTESTINAL: Abdomen soft, non-tender, nondistended. MUSCULOSKELETAL: No cyanosis. Generalized edema Medications and IVs Current Medications Medications (Trade) Dose Ordered Sig/Aleja Route Start Time Stop Time Status Last Admin (Tylenol Supp) 650 mg Q4H PRN RECTAL 11/05/16 18:30 11/05/16 18:30 (NS Flush) 2 ml UNSCH PRN IV FLUSH 11/06/16 12:30 11/11/16 08:31 (NS Flush) 2 ml BID IV FLUSH 11/06/16 21:00 11/16/16 19:42 (Tylenol) 650 mg Q6H PRN PO 11/06/16 12:30 11/08/16 16:01 (Zofran Inj) 4 mg Q6H PRN IV 11/06/16 12:30 (Dulcolax Supp) 10 mg DAILY PRN RECTAL 11/06/16 12:30 Miscellaneous Information 1 Q361D XX 11/06/16 12:30 (Chlorhexidine 2% Cloth) Taper DAILY@04 TOP 11/07/16 04:00 11/03/17 03:59 11/15/16 04:00 Chlorhexidine Gluconate 3 pack 3 pack UNSCH PRN TOP 11/06/16 12:30 (Diprivan 1000 Mg/100ml Inj) 100 ml @ 0 mls/hr TITRATE IV 11/07/16 03:45 11/17/16 01:38 (Peridex 0.12% Liq) 15 ml BID@08,20 MT 11/07/16 08:00 11/16/16 19:42 (D50w (Vial) Inj) 25 ml UNSCH PRN IV PUSH 11/07/16 04:15 (Glucagon Inj) 1 mg UNSCH PRN OTHER 11/07/16 04:15 Insulin Aspart 1 1 Q6H SQ 11/07/16 06:00 11/12/16 17:09 Potassium Chloride 100 ml @ 50 mls/hr Q2H PRN IV-CENTRAL 11/07/16 08:45 11/07/16 23:30 Potassium Chloride 100 ml @ 50 mls/hr Q2H PRN IV 11/07/16 08:45 Potassium Chloride 100 ml @ 25 mls/hr UNSCH PRN IV-CENTRAL 11/07/16 08:45 Potassium Chloride 100 ml @ 50 mls/hr Q2H PRN IV 11/07/16 08:45 11/17/16 05:53 (Magnesium Sulfate Inj/NS Inj) 100 ml @ 50 mls/hr UNSCH PRN IV 11/07/16 08:45 Magnesium Oxide 800 mg 800 mg UNSCH PRN PO 11/07/16 08:45 11/11/16 08:31 (Magnesium Sulfate Inj/NS Inj) 100 ml @ 50 mls/hr UNSCH PRN IV 11/07/16 08:45 11/12/16 08:42 Potassium Phosphate 2000 mg 2,000 mg Q4H PRN PO 11/07/16 08:45 11/12/16 08:42 (Sodium Phosphate Inj/NS 250 ml Inj) 250 ml @ 42 mls/hr UNSCH PRN IV 11/07/16 08:45 Potassium Phosphate 2000 mg 2,000 mg UNSCH PRN PO/TUBE 11/07/16 08:45 (Potassium Phosphate Inj/NS 250 ml Inj) 260 ml @ 42 mls/hr UNSCH PRN IV 11/07/16 08:45 11/10/16 06:09 (Pepcid Inj) 20 mg Q12H IV PUSH 11/07/16 16:00 11/17/16 05:52 Metoprolol Tartrate 2.5 mg 2.5 mg Q6H PRN IV PUSH 11/08/16 14:45 11/12/16 05:08 Multivitamins 10 ml/Folic Acid 1 mg/Amino Acids/ Electrolytes/ Dextrose 1,010.2 ml @ 42 mls/hr Q24H IV 11/08/16 20:00 11/16/16 19:42 (Liposyn Iii 20% Inj) 250 ml @ 10 mls/hr Q24H IV 11/08/16 20:00 11/16/16 19:42 Hydromorphone HCl 1 mg 1 mg Q2HR PRN IV PUSH 11/08/16 15:45 11/16/16 21:55 (1/2 NS 1000 ml Inj) 1,000 ml @ 0 mls/hr Q0M IV 11/09/16 09:53 (K-Phos) 500 mg DAILY PO 11/10/16 09:00 11/16/16 09:26 (Trandate Inj) 10 mg Q1H PRN IV 11/13/16 01:30 11/13/16 09:09 Sodium Chloride 2 gm 2 gm BID PO 11/13/16 14:00 11/16/16 19:42 (Ancef 2 Gm Premix) 50 ml @ 100 mls/hr Q8H IV 11/13/16 22:00 11/17/16 05:52 Assessment and Plan Problem List: (1) Spinal epidural abscess Status: Acute Plan: Patient to surgery on an urgent basis on the for evacuation of epidural abscess, wound debridement. Patient found to have pre-existing dural tear with CSF leakage which could not be primarily repaired. Indirect repair of dural tear with blood clot, Gelfoam, thrombin, tissue glue and reclosure of wound site. Dressing on site. Lumbar drain in place draining Palliative care consult ordered continue with aggressive care per family request. (2) Sepsis Status: Acute Plan: ID consulted and managing. On antibiotics. WBC stable at 7.4. 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 On ventilator with light sedation with Diprivan. Patient still remains flat on back so not able to wean from ventilator. Receiving parental nutrition (4) Anemia Status: Acute Plan: HGB stable at 8.5 monitoring (5) Abnormal blood electrolyte level Status: Acute Plan: Potassium 3.4 replacement given Assessment and Plan Assessment and plan discussed with Dr. Kendrick. Palliative care following Discussed Condition With Nurse at bedside Dayanara Barbour Nov 17, 2016 06:34
--- NOTE | 2016-11-17 07:43 | HHI.CCPN ---
Subjective Remarks/Hospital Course This 86 year-old woman who presents to the emergency department complaining of nausea vomiting, low back pain, and chills on 11/05/2016. She has a history of metastatic endometrial cancer diagnosed 5 years ago initially, as well as chronic back pain. The chronic back pain preceded the malignancy. Most recent PET scan as reported by daughter revealed multiple bony metastasis to include skull, and right upper arm. She underwent an L4-L5 laminectomy about [facility] weeks ago [facility] . Prior to her surgery , the patient was extremely physically active without any ambulation difficulties.She was doing well initially but over the past several days complained of increased nausea vomiting, increased low back pain, and chills. Upon admission incision has not had any drainage or bleeding,and she denied any urinary symptoms. The patient was admitted to [facility] on 11/05/2016, she subsequently has begun to have leukocytosis, urinary retention and noted drainage from lumbar laminectomy surgical site. Lumbar CT scan revealed postop laminectomy L4 with fluid and scattered bubbles possibly resolving hematoma, abscess could not be excluded. ID and Neurosurgery was consulted.Critical care medicine is consult that for patients noted sepsis, and progressive weakness bilateral lower extremities. Subjective: 11/07 Seen upon return from the OR following lumbar wound debridement and evacuation of epidural abscess by Dr. Melissa. Patient is to remain intubated per Dr. Melissa as she must be maintained with HOB flat due to dural leak (but rotate side to side q2 hours). At present she is not on continuous sedation, but is unresponsive to deep noxious stimuli upon return from general anesthesia. Reportedly large amount of respiratory secretions noted upon intubation by anesthesia. Routine airway per documentation. She received 1800 crystalloid intraoperatively. EBL 20 ml. 11/08: Afebrile. Patient remains on propofol infusion, moving bilateral upper and lower extremities wiggling toes and moving upper extremities. The patient was inadvertently placed on fentanyl infusion last night for purported pain. Fentanyl infusion discontinued, patient on when necessary pain medicine now currently following commands and denies pain. Leukocytosis resolved, the patient continues on Flagyl, Vancomycin and Ceptazidime per ID Dr. Nina. The patient remains flat in bed, supine position in order to begin nutrition PPN was initiated this a.m.. Extensive discussion with Dr. Melissa and Dr. Nina and palliative care consulted with planned discussion with family today. 11/09: Leukocytosis resolved. Wound culture was noted staph aureus. Patient was noted to have hypophosphatemia and hypomagnesemia ischemia which are being currently replaced. PPN was initiated for nutritional support secondary to put required positioning. Palliative care was consulted to discuss goals of care, currently aggressive treatment management continued per family request. 11/10: Afebrile .No acute events overnight. Patient underwent placement of CSF drain yesterday by interventional radiology. Patient's head of the bed to remain flat until Tuesday. The patient continues to have low phosphate and was placed on scheduled doses of phosphorus yesterday. Family requesting medication administration of vitamin C secondary to a small non-scientific research study that was published recently. Explained to family that it wasn't in evidence-based full research study performed but a small study without any level of evidence for implementation in the [place] at this time. Vitamin C is not indicated at this time. The family was educated by neurosurgery that the patient may have to possibly have surgery. 11/11 Tmax 99.0. The patient's CSF lumbar drain reevaluated by Dr. Melissa last evening, now draining fluid. No further drainage from surgical site. The patient remains in a supine position, PPN infusing for nutritional support. Her electrolytes continually being replaced per protocol. The patient remains on low-dose propofol infusion. Patient responsive following commands. 11/12: Patient was noted not to be moving upper extremities on command. Patient off sedation greater than 24 hours. MRI obtained today. Patient will return to surgery with Dr. Melissa. Lumbar drain dressing dry, with CSF draining. 11/13: The patient returned to neurosurgery yesterday, new lumbar drain placed. Minimal movement of bilateral upper extremities noted this a.m.. Patient moving hands minimally lifting arms, wiggling fingers and toes. 11/14:Afebrile: No acute changes overnight. Patient responsive to family, follows commands. The patient continues to be in supine position only to be log rolled secondary. Lumbar drain patent. 11/15 Patient remains intubated. On no sedation awake. Afebrile. Patient is in supine position lumbar drain in place. 11/16 No acute events overnight. Awake on ACV with PEEP:5 and FIO2 35%. On no sedation. 11/17 Patient is sedated with Diprivan and intubated. Afebrile. Objective Vital Signs Date Time Temp Pulse Resp B/P Pulse Ox O2 Delivery O2 Flow Rate FiO2 11/17/16 06:00 106 11/17/16 04:13 100 30 11/17/16 04:00 98.5 16 125/59 140/57 Intake and Output 11/16/16 11/16/16 11/17/16 08:00 16:00 00:00 Intake Total 469 ml 566 ml 496 ml Output Total 788 ml 1570 ml 660 ml Balance -319 ml -1004 ml -164 ml Result Diagram: 11/17/16 0315 11/17/16 0315 Other Results Laboratory Tests Test 11/17/16 03:15 White Blood Count 7.4 TH/MM3 Red Blood Count 2.68 MIL/MM3 Hemoglobin 8.5 GM/DL Hematocrit 24.8 % Mean Corpuscular Volume 92.7 FL Mean Corpuscular Hemoglobin 31.7 PG Mean Corpuscular Hemoglobin 34.2 % Concent Red Cell Distribution Width 14.4 % Platelet Count 284 TH/MM3 Mean Platelet Volume 8.9 FL Neutrophils (%) (Auto) 74.2 % Lymphocytes (%) (Auto) 4.6 % Monocytes (%) (Auto) 16.2 % Eosinophils (%) (Auto) 4.1 % Basophils (%) (Auto) 0.9 % Neutrophils # (Auto) 5.5 TH/MM3 Lymphocytes # (Auto) 0.3 TH/MM3 Monocytes # (Auto) 1.2 TH/MM3 Eosinophils # (Auto) 0.3 TH/MM3 Basophils # (Auto) 0.1 TH/MM3 CBC Comment DIFF FINAL Differential Comment Sodium Level 135 MEQ/L Potassium Level 3.4 MEQ/L Chloride Level 100 MEQ/L Carbon Dioxide Level 26.8 MEQ/L Anion Gap 8 MEQ/L Blood Urea Nitrogen 17 MG/DL Creatinine 0.39 MG/DL Estimat Glomerular Filtration 156 ML/MIN Rate Random Glucose 118 MG/DL Calcium Level 8.5 MG/DL Imaging Last Impressions Chest X-Ray 11/15/16 0600 Signed Impressions: Service Date/Time: Tuesday, November 15, 2016 04:15 - CONCLUSION: Tubes and catheters are in good position. Mild pulmonary vascular congestion persists Jimi Schrader MD Thoracic Spine MRI 11/12/16 0000 Signed Impressions: Service Date/Time: Saturday, November 12, 2016 11:46 - CONCLUSION: 1. Degenerative changes but no canal or foraminal narrowing. 2. No evidence for abscess. 3. T5 and T2 vertebral body lesions are noted. Metastatic deposits are not excluded. 4. Extensive subcutaneous edema of the upper thorax and cervical region. 5. Large bilateral pleural effusions. Jesús Anderson MD Lumbar Spine X-Ray 11/12/16 Signed Impressions: Service Date/Time: Saturday, November 12, 2016 21:53 - CONCLUSION: 1. Postsurgical changes as above. Reed George MD Lumbar Spine MRI 11/12/16 0000 Signed Impressions: Service Date/Time: Saturday, November 12, 2016 11:46 - CONCLUSION: 1. Complex fluid collection appears slightly increased in sagittal dimension with rim enhancement and marked surrounding edema and enhancement of the paraspinal soft tissues. This is consistent with the clinical history of abscess. 2. There is severe associated spinal stenosis secondary to mass effect from the fluid collection. Jesús Anderson MD Cervical Spine MRI 11/12/16 Signed Impressions: Service Date/Time: Saturday, November 12, 2016 11:46 - CONCLUSION: 1. No evidence for abscess. 2. Nonspecific enhancing lesion of the T2 vertebral body, as well as diffuse decreased T1 signal involving the C7 pedicle and transverse process. The possibility of metastatic disease should be excluded. 3. Severe canal stenosis with cord compression at C5-6 and moderate canal stenosis at C4-5. Jesús Anderson MD ADDENDUM: There is extensive subcutaneous edema of the cervical and upper thoracic subcutaneous tissues posteriorly. Jesús Anderson MD Brain MRI 11/12/16 0000 Signed Impressions: Service Date/Time: Saturday, November 12, 2016 11:46 - CONCLUSION: 1. There are no findings to indicate acute infarct. 2. Abnormal signal layering within the occipital horns bilaterally likely representing a small amount of blood products. This finding is new compared to the prior CT. 3. Chronic changes include generalized atrophy and periventricular white matter change characteristic of chronic microvascular ischemia. Naveed Smith MD Lumbar Puncture Fluoroscopy 11/09/16 0000 Signed Impressions: Service Date/Time: Wednesday, November 09, 2016 16:21 - CONCLUSION: Uncomplicated lumbar drain placement as above. Naveed Rosenhtal MD Entire Spine MRI 11/06/16 0000 Signed Impressions: Service Date/Time: Sunday, November 06, 2016 14:28 - CONCLUSION: 1. As noted on the MRI lumbar spine there is a complex fluid collection in the soft tissues posterior to the spinal canal at the level of L4 measuring 3.4 x 3.1 x 3.9 cm suggestive of a postoperative hematoma/seroma. An abscess cannot be excluded. 2. Abnormal signal in the body of T2 suspicious for bony metastatic disease. 3. Status post fusion of C6-7. 4. Broad-based bulging with disc osteophyte complexes at C4-5 and C5-6. Possible myelopathy in the cord at this level. Patrick Chavez MD Lumbar Spine CT 11/05/16 0000 Signed Impressions: Service Date/Time: Saturday, November 05, 2016 04:14 - CONCLUSION: 1. Postop laminectomy at L4 level with fluid within the operative bed and a few scattered gas bubbles may be postsurgical change and possibly resolving hematoma, however abscess is not excluded. No definite signs of osteomyelitis. 2. Neural foramina compromise left L2-L3, bilateral L4-L5. 3. Bilateral masses compromise L5-S1. 4. Residual slight thecal sac stenosis may be present at L3-4 and L4-5. Deangelo Monsivais MD Head CT 11/05/16 0000 Signed Impressions: Service Date/Time: Saturday, November 05, 2016 16:08 - CONCLUSION: 1. No acute intracranial abnormality. Hussain Sandoval MD Abdomen/Pelvis CT 11/05/16 0000 Signed Impressions: Service Date/Time: Saturday, November 05, 2016 16:12 - CONCLUSION: 1. There is residual IV contrast within the kidneys and bladder. 2. There are no findings to indicate a bowel obstruction. 3. The patient is post hysterectomy. Hussain Sandoval MD Objective Remarks Drips: PPN 42cc/hr GENERAL: Elderly female who is orotracheally intubated and sedated SKIN: Warm and dry. HEAD: Atraumatic. Normocephalic. EYES: Pupils 2 mm bilaterally and sluggishly reactive. No scleral icterus. No injection or drainage. ENT: No nasal bleeding or discharge. NECK: Trachea midline. No JVD. CARDIOVASCULAR: Normal rate, regular rhythm. 2/6 systolic murmur left sternal border RESPIRATORY: No accessory muscle use. ET tube in place. Occasional coarse rhonchi. On mechanical ventilation ACV tidal volume 450/rate 15/PEEP 5/FiO2 35% GASTROINTESTINAL: Healed abdominal incision noted. Bowel sounds hypoactive. No tenderness appreciable : Jean-Baptiste in place with light yellow urine output. MUSCULOSKELETAL: Extremities without clubbing, cyanosis, 2+ peripheral edema bilateral upper extremity. No obvious deformities. NEUROLOGICAL: RASS 0. Opens eyes, follows commands with squeeze bilateral hands , moving upper arms flexion and extension,. Does move bilateral feet including plantar flexion with minimal extension. A/P Assessment and Plan Plan by systems: Neurologic: Metabolic encephalopathy secondary to sepsis Lumbar epidural abscess Status post lumbar wound debridement and drainage epidural abscess 11/07/16 (Dr. Melissa) S/P exploration, irrigation and replacement of lumbar drain 11/12/16 (Dr. Melissa) Now on Diprvan infusion for sedation. Daily sedation vacation. Neurochecks every 2 hour per ICU protocol 11/05 CT lumbar spine-postop laminectomy L4 with fluid and scattered bubbles possibly resolving hematoma. Abscess cannot be excluded. Neural foraminotomy not compromise left L2-3, L4-L5, residual thecal sac stenosis may be present L3 L4, L4-L5,B/L mass compromise L5-S1. MRI -post surgical changes with hematoma/seroma ? Abscess L3/L4 and L4/L5. 11/07-postop CSF leak, spinal epidural abscess, postoperative wound dehiscence, pre-existing dural tear with repair, status post debridement lumbar wound dehiscence, evacuation of lumbar abscess indirect repair of pre-existing dural tear Reportedly persistent dural leak noted intraoperatively. Patient is to remain head of bed down/supine per Dr. Melissa. EEG 11/06/16moderately slow background consistent with encephalopathy. No epileptiform features. Neurology following, Dr. Thmoson NSG following, Dr. Melissa 11/09 IR CSF drain L1-L2 11/12 CT lumbar spine L3-4, L4-5 mass effect. 11/12 Replacement of lumbar drain and evaluation in OR 11/12 CT [id number] cervical moderate left foraminal stenosis, C3-C4 severe left foraminal stenosis, C4-C5 mild bilateral foraminal stenosis mild abutment of ordered, C5-C6 mild cord compression 11/12 CT thoracic-T2 and T5 lesion cannot rule out metastasis Monitor Lumbar drainage ( drained 180ml ). NSG-Dr. Melissa Respiratory: Acute respiratory failure Duo nebs every 6 hours scheduled ACV RR 15, TV 450, PEEP:5 and FIO2 30% Ventilator bundle Maintain head of bed flat per neurosurgery recommendations CT [id number] bilateral pleural effusions, T2 and T5 lesions cannot rule out metastatic disease Cardiovascular: Monitor HR and BP Maintain MAP > 65 mmHg FEN/RENAL Acute kidney injury- resolved Neurogenic bladder with urinary retention. Hyponatremia Monitor renal function, I/O's, Electrolyte replacement per ICU protocol GI: Moderate protein energy malnutrition PPN Patient position supine, unable to begin tube feeds. PPN at 42 cc/hour with lipid supplementation 11/[address] Hale, no GI issues identified. OGT to [facility]WS ID: Severe sepsis-resolved Leukocytosis-resolved Bandemia Abx per ID ( Cefazolin) monitor for signs of infections ( Fever, WBC) HEME: Metastatic Endometrial cancer s/p recent chemotherapy 10/06 Chronic anemia Monitor CBC Endocrine: Low-dose insulin sliding scale at bedside glucose every 6 hours. GI Prophylaxis Pepcid twice a day DVT Prophylaxis -- SCDs. Hold pharmacologic DVT prophylaxis defer to neurosurgery when to initiate. ACCESS: Port accessed right chest. Left radial art line placed in OR / Palliative care following CCT 30 mins Yves Sanchez MD Nov 17, 2016 07:43
[2016-11-17] MEDS: HYDROmorphone HCL PF 1 MG/ML VIAL IV PUSH PRN ×2 (07:51→11:35)
[2016-11-17] MEDS: SODIUM CHLORIDE 1 GRAM TAB PO SCH ×2 (07:51→21:00)
[2016-11-17] MEDS: POTASSIUM PHOSPHATE MONOBASIC 500 MG TAB PO SCH (07:51)
[2016-11-17] MEDS: CHLORHEXIDINE 0.12% (ORAL KIT) 15 ML CUP MT SCH ×2 (07:53→20:00)
[2016-11-17] MEDS: SODIUM CHLORIDE 0.9% FLUSH 10 ML FLUSH IV FLUSH SCH ×2 (07:54→21:19)
--- NOTE | 2016-11-17 14:46 | HHI.IDPN ---
Subjective Subjective Remarks is an 86 y/o CF with PMHx of endometrial cancer s/p chemotherapy 5 yrs back as well as surgery. Patient reportedly had recurrence with endometrial cancer involving multiple bones of the body. She underwent 2nd set of chemotherapy for metastatic endometrial cancer. Her [facility] oncologist is Dr.Kelly Marin. Patient has a port used for chemotherapy. Most recent PET scan as reported by daughter revealed multiple bony metastasis to include skull, and right upper arm. She underwent an L4-L5 laminectomy about 2 weeks ago in [facility]. Prior to her surgery , the patient was extremely physically active without any ambulation difficulties. She did not have any bowel bladder issues. With this background patient presents to the ED with complains of nausea, vomiting, low back pain, and chills on 11/05/2016. She was doing well initially but over the past several days complained of increased nausea, vomiting, increased low back pain, and chills. Patient's daughter reports discharge from the surgical site beginning the day prior to admission. Upon discussion with RN , patient has been wetting her bed but not voiding. No bleeding. No incontinence of bowel although suspicious bladder overflow secondary to retention. Lumbar CT scan revealed postop laminectomy L4 with fluid and scattered bubbles possibly resolving hematoma, abscess could not be excluded. ID and Critical care medicine is consulted for patients noted sepsis, and progressive weakness bilateral lower extremities. Overnight events reviewed. No fever No rash No diarrhea Remains intubated. Not on pressors. Wiggles bilateral LE toes. Antibiotics Ancef IV Lines Line sites with no e.o infection. Past Medical History reviewed. Allergies: Coded Allergies: Penicillin (Verified Allergy, Severe, Rash, 11/06/16) Rash 2 decades back. Objective . Vital Signs Date Time Temp Pulse Resp B/P Pulse Ox O2 Delivery O2 Flow Rate FiO2 11/17/16 12:15 15 11/17/16 12:00 30 11/17/16 12:00 90 11/17/16 12:00 98.7 90 15 89/54 96 95/51 11/17/16 11:40 96 30 11/17/16 10:00 97 11/17/16 08:00 101 11/17/16 08:00 98.8 109 16 107/53 99 149/60 11/17/16 08:00 30 11/17/16 07:44 95 30 11/17/16 06:00 106 11/17/16 04:13 100 30 11/17/16 04:00 100 11/17/16 04:00 98.5 100 16 125/59 100 140/57 11/17/16 04:00 30 11/17/16 02:00 96 11/17/16 01:06 100 30 11/17/16 00:00 93 11/17/16 00:00 30 11/17/16 00:00 98.0 93 15 119/62 100 141/62 11/16/16 22:05 100 30 11/16/16 22:00 93 11/16/16 20:00 30 11/16/16 20:00 98.4 92 15 147/72 100 173/74 11/16/16 20:00 92 11/16/16 19:05 100 30 11/16/16 18:00 82 11/16/16 16:00 30 11/16/16 16:00 98.4 79 26 146/78 94 128/56 11/16/16 16:00 86 11/16/16 11/16/16 11/17/16 15:00 23:00 07:00 Intake Total 566 ml 496 ml 513 ml Output Total 1570 ml 660 ml 500 ml Balance -1004 ml -164 ml 13 ml Intake IV Total 47 ml 96 ml 147 ml TPN/PPN 421 ml 275 ml 296 ml Lipid 98 ml 65 ml 70 ml Other 60 ml Output Urine Total 1500 ml 500 ml 350 ml Gastric Drainage Total 100 ml 100 ml Drainage Total 70 ml 60 ml 50 ml # Bowel Movements 0 0 . Laboratory Tests Test 11/16/16 11/17/16 03:40 03:15 White Blood Count 7.5 TH/MM3 7.4 TH/MM3 Red Blood Count 2.68 MIL/MM3 2.68 MIL/MM3 Hemoglobin 8.6 GM/DL 8.5 GM/DL Hematocrit 24.6 % 24.8 % Mean Corpuscular Volume 91.8 FL 92.7 FL Mean Corpuscular Hemoglobin 32.0 PG 31.7 PG Mean Corpuscular Hemoglobin 34.9 % 34.2 % Concent Red Cell Distribution Width 14.1 % 14.4 % Platelet Count 287 TH/MM3 284 TH/MM3 Mean Platelet Volume 9.0 FL 8.9 FL Neutrophils (%) (Auto) 76.2 % 74.2 % Lymphocytes (%) (Auto) 5.0 % 4.6 % Monocytes (%) (Auto) 15.5 % 16.2 % Eosinophils (%) (Auto) 2.7 % 4.1 % Basophils (%) (Auto) 0.6 % 0.9 % Neutrophils # (Auto) 5.7 TH/MM3 5.5 TH/MM3 Lymphocytes # (Auto) 0.4 TH/MM3 0.3 TH/MM3 Monocytes # (Auto) 1.2 TH/MM3 1.2 TH/MM3 Eosinophils # (Auto) 0.2 TH/MM3 0.3 TH/MM3 Basophils # (Auto) 0.0 TH/MM3 0.1 TH/MM3 CBC Comment AUTO DIFF DIFF FINAL Differential Comment AUTO DIFF CONFIRMED Laboratory Tests Test 11/16/16 11/17/16 03:40 03:15 Sodium Level 133 MEQ/L 135 MEQ/L Potassium Level 3.6 MEQ/L 3.4 MEQ/L Chloride Level 96 MEQ/L 100 MEQ/L Carbon Dioxide Level 28.5 MEQ/L 26.8 MEQ/L Anion Gap 9 MEQ/L 8 MEQ/L Blood Urea Nitrogen 17 MG/DL 17 MG/DL Creatinine 0.40 MG/DL 0.39 MG/DL Estimat Glomerular Filtration 152 ML/MIN 156 ML/MIN Rate Random Glucose 119 MG/DL 118 MG/DL Calcium Level 8.4 MG/DL 8.5 MG/DL Phosphorus Level 2.5 MG/DL Magnesium Level 1.7 MG/DL Imaging Last Impressions Chest X-Ray 11/07/16 0600 Signed Impressions: Service Date/Time: Monday, November 07, 2016 04:40 - CONCLUSION: Bibasilar and left suprahilar areas of linear density likely related to atelectasis or mild consolidation. There is a possible bone lesion in the proximal right humerus. Naveed Michael MD Lumbar Spine MRI 11/06/16 0000 Signed Impressions: Service Date/Time: Sunday, November 06, 2016 14:28 - CONCLUSION: 1. Postsurgical changes with a hematoma/seroma is noted in the posterior soft tissues just behind the spinal canal at the levels of L3-4 and L4-5. Abscess cannot be excluded. This postoperative finding measures 3.4 x 1.3 x 3.9 cm. Its creating an extra dural defect on the posterior aspect of the spinal canal. This along with broad-based bulging at L3-4 and L4-5 is causing moderate to prominent spinal canal stenosis. 2. There is primary bony degenerative changes of the lumbar spine with some disc space narrowing at L2-3 and L3-4. 3. Bilateral facet arthritis at multiple levels. Patrick Chavez MD Entire Spine MRI 11/06/16 0000 Signed Impressions: Service Date/Time: Sunday, November 06, 2016 14:28 - CONCLUSION: 1. As noted on the MRI lumbar spine there is a complex fluid collection in the soft tissues posterior to the spinal canal at the level of L4 measuring 3.4 x 3.1 x 3.9 cm suggestive of a postoperative hematoma/seroma. An abscess cannot be excluded. 2. Abnormal signal in the body of T2 suspicious for bony metastatic disease. 3. Status post fusion of C6-7. 4. Broad-based bulging with disc osteophyte complexes at C4-5 and C5-6. Possible myelopathy in the cord at this level. Patrick Chavez MD Lumbar Spine CT 11/05/16 0000 Signed Impressions: Service Date/Time: Saturday, November 05, 2016 04:14 - CONCLUSION: 1. Postop laminectomy at L4 level with fluid within the operative bed and a few scattered gas bubbles may be postsurgical change and possibly resolving hematoma, however abscess is not excluded. No definite signs of osteomyelitis. 2. Neural foramina compromise left L2-L3, bilateral L4-L5. 3. Bilateral masses compromise L5-S1. 4. Residual slight thecal sac stenosis may be present at L3-4 and L4-5. Deangelo Monsivais MD Head CT 11/05/16 0000 Signed Impressions: Service Date/Time: Saturday, November 05, 2016 16:08 - CONCLUSION: 1. No acute intracranial abnormality. Hussain Sandoval MD Abdomen/Pelvis CT 11/05/16 0000 Signed Impressions: Service Date/Time: Saturday, November 05, 2016 16:12 - CONCLUSION: 1. There is residual IV contrast within the kidneys and bladder. 2. There are no findings to indicate a bowel obstruction. 3. The patient is post hysterectomy. Hussain Sandoval MD Physical Exam GENERAL: This is a well-nourished, well-developed patient, in no apparent distress. SKIN: No rashes, ecchymoses or lesions. Cool and dry. HEAD: Atraumatic. Normocephalic. No temporal or scalp tenderness. EYES: Pupils equal round and reactive. Extraocular motions intact. No scleral icterus. No injection or drainage. ENT: Nose without bleeding, purulent drainage or septal hematoma. NECK: Intubated CARDIOVASCULAR: RRR RESPIRATORY: Clear to auscultation. Breath sounds equal bilaterally. GASTROINTESTINAL: Abdomen soft, nondistended. Surgical site not examined. Patient in head down position. MUSCULOSKELETAL: Extremities without clubbing, cyanosis, or edema. No joint tenderness, effusion, or edema noted. No calf tenderness. Negative Homans sign bilaterally. NEUROLOGICAL: Opens eyes, wiggles bilateral toes. Psych: cooperative IV line sites with no e.o infection. Assessment & Plan Remarks Sepsis present on admission (fever, tachycardia, WBC elevation, Encephalopathy) Surgical site infection at Lumbar Laminectomy (Surgery done at [facility]) Staph epidermidis bacteremia: likely contaminant as it was not present on admission and is not persistent. 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 Acute metabolic encephalopathy: sepsis, ? acute meningitis secondary to spine surgical site infection, epidural abscess Acute renal failure: prerenal, acute urinary retention. Endometrial cancer with mets to multiple bones. PCN allergy clarified. Aspiration risk. Hypoalbuminemia Recs: Continue Ancef IV Follow clinically. Will need 8-12 weeks of IV antibiotics from date of last surgery (will d.w if any plans for further surgeries and drain removal etc.) d/w RN d/w : he will reassess for CSF leak early next week. Overall guarded prognosis. I will be OOT from 11/20/2016 to 11/22/2016 to cover for me. Nichole Nina MD Nov 17, 2016 14:46
[2016-11-17] MEDS ORDERED: RESP: ALBUTEROL 2.5 MG/IPRATROPIUM 0.5 MG NEB (PRN) NEB (15:45)
[2016-11-17] MEDS: RESP: ALBUTEROL 2.5 MG/IPRATROPIUM 0.5 MG NEB (SCH) NEB ×2 (15:59→20:39)
--- NOTE | 2016-11-17 21:43 | HHI.NSPN ---
History Chief Complaint: intubated and sedated Interval History 86-year-old female with history of lumbar laminectomy approximately 2 weeks ago in [place]. Patient presents to the emergency room on 11/05/16 with decreasing mental status, GI symptoms, and subsequent opening of the wound with wound dehiscence and purulent drainage. 11/07/16: Patient to surgery on an urgent basis for evacuation of epidural abscess , wound debridement. Patient found to have pre-existing dural tear with CSF leakage which could not be primarily repaired. Indirect repair of dural tear with blood clot, Gelfoam, thrombin, tissue glue and reclosure of wound site. 11/08/16: Patient remains intubated, sedated, head of bed flat. Dressing dry and intact 11/09/16: Patient remains intubated. Slight amount of drainage noted from incision. Lumbar subarachnoid drain placed per interventional radiology 11/10/16: Lumbar subarachnoid drain is not functioning well. Discussed with nursing staff 11/11/16: Intermittent drainage from subarachnoid drain. Wound and dressing dry in the morning. 11/12/16: Subarachnoid drain with minimal output. Mild drainage from wound. Return to operating room for replacement subarachnoid drain, wound debridement, repeat closure of CSF leak 11/17/16: Extubated. Sitting up in bed. Lumbar drain remains in place Exam Results Vital Signs Date Time Temp Pulse Resp B/P Pulse Ox O2 Delivery O2 Flow Rate FiO2 11/17/16 20:40 99 Nasal Cannula 2.00 11/17/16 20:00 98.6 103 18 116/56 99/85 11/17/16 12:00 30 Intake and Output 11/16/16 11/16/16 11/17/16 08:00 16:00 00:00 Intake Total 469 ml 566 ml 496 ml Output Total 788 ml 1570 ml 660 ml Balance -319 ml -1004 ml -164 ml Physical Examination Extubated. Respirations clear and regular Awake and relatively alert Follows simple commands all extremities. CN: Pupils equal, conjugate extraocular movements Motor: Moves distal upper and lower extremities with moderate strength to command Lumbar drain with light yellow CSF draining, insertion site with dry dressing. Sitting up approximately 45 in bed Lab, Micro, Other Results Laboratory Tests Test 11/17/16 03:15 White Blood Count 7.4 TH/MM3 Red Blood Count 2.68 MIL/MM3 Hemoglobin 8.5 GM/DL Hematocrit 24.8 % Mean Corpuscular Volume 92.7 FL Mean Corpuscular Hemoglobin 31.7 PG Mean Corpuscular Hemoglobin 34.2 % Concent Red Cell Distribution Width 14.4 % Platelet Count 284 TH/MM3 Mean Platelet Volume 8.9 FL Neutrophils (%) (Auto) 74.2 % Lymphocytes (%) (Auto) 4.6 % Monocytes (%) (Auto) 16.2 % Eosinophils (%) (Auto) 4.1 % Basophils (%) (Auto) 0.9 % Neutrophils # (Auto) 5.5 TH/MM3 Lymphocytes # (Auto) 0.3 TH/MM3 Monocytes # (Auto) 1.2 TH/MM3 Eosinophils # (Auto) 0.3 TH/MM3 Basophils # (Auto) 0.1 TH/MM3 CBC Comment DIFF FINAL Differential Comment Sodium Level 135 MEQ/L Potassium Level 3.4 MEQ/L Chloride Level 100 MEQ/L Carbon Dioxide Level 26.8 MEQ/L Anion Gap 8 MEQ/L Blood Urea Nitrogen 17 MG/DL Creatinine 0.39 MG/DL Estimat Glomerular Filtration 156 ML/MIN Rate Random Glucose 118 MG/DL Calcium Level 8.5 MG/DL Medical Decision Making Impression and Plan Impression: Status post repeat debridement lumbar wound dehiscence, replacement lumbar subarachnoid drain, indirect closure of CSF leak and dural tear. 11/12/16 Incision and dressing are dry this morning Plan: Continue lumbar subarachnoid drain Continue to mobilize out of bed and chair. If dressing remains dry, anticipate closure of drain on approximately 11/19/16 and will observe over the weekend to ensure continued healing of wound prior to drain placement early next week. Pratik Melissa MD Nov 17, 2016 21:43
[2016-11-18] VITALS (14 sets, daily range): BP systolic 76–154; BP diastolic 43–89; PULSE 81–118; RESP 14–21; TEMP 97.7–98.6; O2SAT 96–100
[2016-11-18] MEDS: RESP: ALBUTEROL 2.5 MG/IPRATROPIUM 0.5 MG NEB (SCH) NEB ×4 (02:59→20:07)
[2016-11-18 03:36] LABS: AUTOMATED NEUTROPHIL # 5.8 TH/MM3 (1.8-7.7); BASOPHIL % 0.6 % (0.0-2.0); EOSINOPHIL # 0.2 TH/MM3 (0-0.4); EOSINOPHIL % 2.9 % (0.0-4.0); HEMATOCRIT 25.7 % (35.0-46.0); HEMO FLAGS DIFF FINAL; LYMPH % 3.8 % (9.0-44.0); LYMPHOCYTE # 0.3 TH/MM3 (1.0-4.8); MEAN CELL VOLUME 93.9 FL (80.0-100.0); MEAN CORPUSCULAR HEMOGLOBIN 31.7 PG (27.0-34.0); MEAN CORPUSCULAR HGB CONC 33.8 % (32.0-36.0); MONO % 15.2 % (0.0-8.0); NEUT % 77.5 % (16.0-70.0); PLATELET COUNT 299 TH/MM3 (150-450); RED BLOOD COUNT 2.74 MIL/MM3 (4.00-5.30); RED CELL DISTRIBUTION WIDTH 14.1 % (11.6-17.2); WHITE BLOOD COUNT 7.5 TH/MM3 (4.0-11.0)
[2016-11-18] MEDS: CHLORHEXIDINE GLUCONATE 2 % 1 PACK (2 CLOTHS) TOP SCH ×2 (04:00→19:46)
[2016-11-18 04:02] LABS: BICARBONATE 26.5 MEQ/L (21.0-32.0); MAGNESIUM 1.5 MG/DL (1.5-2.5); POTASSIUM 3.8 MEQ/L (3.5-5.1)
[2016-11-18] MEDS: FAMOTIDINE 20 MG/2 ML VIAL IV PUSH SCH ×2 (04:53→17:09)
[2016-11-18] MEDS: INSULIN ASPART SUPPLEMENTAL SCALE SQ SCH ×5 (04:54→23:03)
[2016-11-18] MEDS: ceFAZolin 2 GM PREMIX 50 ML IV SCH ×3 (04:54→20:45)
--- NOTE | 2016-11-18 06:41 | HHI.PR ---
Subjective Remarks On O liters. Patient is alert with good O2 sats. Denies any pain Objective Vital Signs Date Time Temp Pulse Resp B/P Pulse Ox O2 Delivery O2 Flow Rate FiO2 11/18/16 06:00 107 11/18/16 04:00 118 11/18/16 04:00 98.2 118 17 139/80 100 154/65 11/18/16 02:00 107 11/18/16 00:00 98.0 112 21 126/69 97 103/89 11/18/16 00:00 112 11/17/16 22:00 118 11/17/16 20:40 99 Nasal Cannula 2.00 11/17/16 20:00 98.6 103 18 116/56 100 99/85 11/17/16 20:00 103 11/17/16 19:10 99 Nasal Cannula 2.00 11/17/16 18:00 109 11/17/16 16:02 95 Nasal Cannula 4.00 11/17/16 16:02 95 Nasal Cannula 4 11/17/16 16:00 110 11/17/16 16:00 98.2 110 22 165/73 97 151/68 11/17/16 16:00 97 Nasal Cannula 4.00 11/17/16 14:00 98 11/17/16 12:15 15 11/17/16 12:00 30 11/17/16 12:00 90 11/17/16 12:00 98.7 90 15 89/54 96 95/51 11/17/16 11:40 96 30 11/17/16 10:00 97 11/17/16 08:00 101 11/17/16 08:00 98.8 109 16 107/53 99 149/60 11/17/16 08:00 30 11/17/16 07:44 95 30 I/O 11/17/16 11/17/16 11/17/16 11/18/16 11/18/16 11/18/16 07:00 15:00 23:00 07:00 15:00 23:00 Intake Total 513 ml 388 ml 98 ml 75 ml Output Total 500 ml 1310 ml 460 ml 618 ml Balance 13 ml -922 ml -362 ml -543 ml Intake IV Total 147 ml 98 ml 75 ml TPN/PPN 296 ml 315 ml Lipid 70 ml 73 ml Output Urine Total 350 ml 1200 ml 400 ml 600 ml Gastric Drainage Total 100 ml 50 ml Drainage Total 50 ml 60 ml 60 ml 18 ml # Bowel Movements 0 0 0 Result Diagram: 11/18/1631411/18/16314 Procedures replacement of CSF drain and dural patch 11/12 evacuation of epidural abscess 11/07 had laminectomy 2 weeks ago Objective Remarks GENERAL: Alert and cooperative SKIN: Warm and dry. Lumbar dressing on back HEAD: Normocephalic. EYES: No scleral icterus. No injection or drainage. NECK: Supple, trachea midline. No JVD or lymphadenopathy. CARDIOVASCULAR: Regular rate and rhythm without murmurs, gallops, or rubs. RESPIRATORY: Breath sounds equal bilaterally. No accessory muscle use. GASTROINTESTINAL: Abdomen soft, non-tender, nondistended. MUSCULOSKELETAL: No cyanosis. Generalized edema lumbar drain Medications and IVs Current Medications Medications (Trade) Dose Ordered Sig/Aleja Route Start Time Stop Time Status Last Admin (Tylenol Supp) 650 mg Q4H PRN RECTAL 11/05/16 18:30 11/05/16 18:30 (NS Flush) 2 ml UNSCH PRN IV FLUSH 11/06/16 12:30 11/11/16 08:31 (NS Flush) 2 ml BID IV FLUSH 11/06/16 21:00 11/17/16 21:19 (Tylenol) 650 mg Q6H PRN PO 11/06/16 12:30 11/08/16 16:01 (Zofran Inj) 4 mg Q6H PRN IV 11/06/16 12:30 (Dulcolax Supp) 10 mg DAILY PRN RECTAL 11/06/16 12:30 Miscellaneous Information 1 Q361D XX 11/06/16 12:30 (Chlorhexidine 2% Cloth) Taper DAILY@04 TOP 11/07/16 04:00 11/03/17 03:59 11/15/16 04:00 (Chlorhexidine 2% Cloth) 3 pack UNSCH PRN TOP 11/06/16 12:30 (Peridex 0.12% Liq) 15 ml BID@08,20 MT 11/07/16 08:00 11/17/16 07:53 (D50w (Vial) Inj) 25 ml UNSCH PRN IV PUSH 11/07/16 04:15 (Glucagon Inj) 1 mg UNSCH PRN OTHER 11/07/16 04:15 Insulin Aspart 1 1 Q6H SQ 11/07/16 06:00 11/12/16 17:09 Potassium Chloride 100 ml @ 50 mls/hr Q2H PRN IV-CENTRAL 11/07/16 08:45 11/07/16 23:30 Potassium Chloride 100 ml @ 50 mls/hr Q2H PRN IV 11/07/16 08:45 Potassium Chloride 100 ml @ 25 mls/hr UNSCH PRN IV-CENTRAL 11/07/16 08:45 Potassium Chloride 100 ml @ 50 mls/hr Q2H PRN IV 11/07/16 08:45 11/17/16 07:53 (Magnesium Sulfate Inj/NS Inj) 100 ml @ 50 mls/hr UNSCH PRN IV 11/07/16 08:45 Magnesium Oxide 800 mg 800 mg UNSCH PRN PO 11/07/16 08:45 11/11/16 08:31 (Magnesium Sulfate Inj/NS Inj) 100 ml @ 50 mls/hr UNSCH PRN IV 11/07/16 08:45 11/12/16 08:42 Potassium Phosphate 2000 mg 2,000 mg Q4H PRN PO 11/07/16 08:45 11/12/16 08:42 (Sodium Phosphate Inj/NS 250 ml Inj) 250 ml @ 42 mls/hr UNSCH PRN IV 11/07/16 08:45 Potassium Phosphate 2000 mg 2,000 mg UNSCH PRN PO/TUBE 11/07/16 08:45 (Potassium Phosphate Inj/NS 250 ml Inj) 260 ml @ 42 mls/hr UNSCH PRN IV 11/07/16 08:45 11/10/16 06:09 (Pepcid Inj) 20 mg Q12H IV PUSH 11/07/16 16:00 11/18/16 04:53 (Lopressor Inj) 2.5 mg Q6H PRN IV PUSH 11/08/16 14:45 11/12/16 05:08 Hydromorphone HCl 1 mg 1 mg Q2HR PRN IV PUSH 11/08/16 15:45 11/17/16 11:35 (1/2 NS 1000 ml Inj) 1,000 ml @ 0 mls/hr Q0M IV 11/09/16 09:53 (K-Phos) 500 mg DAILY PO 11/10/16 09:00 11/17/16 07:51 (Trandate Inj) 10 mg Q1H PRN IV 11/13/16 01:30 11/13/16 09:09 Sodium Chloride 2 gm 2 gm BID PO 11/13/16 14:00 11/17/16 07:51 (Ancef 2 Gm Premix) 50 ml @ 100 mls/hr Q8H IV 11/13/16 22:00 11/18/16 04:54 Assessment and Plan Problem List: (1) Spinal epidural abscess Status: Acute Plan: Patient to surgery on an urgent basis on the for evacuation of epidural abscess, wound debridement. Patient found to have pre-existing dural tear with CSF leakage which could not be primarily repaired. Indirect repair of dural tear with blood clot, Gelfoam, thrombin, tissue glue and reclosure of wound site. Dressing on site. Lumbar drain in place draining. If dressing remains dry, anticipate closure of drain on approximately 11/19/16 and will observe over the weekend to ensure continued healing of wound prior to drain placement early next week per neurology note. Palliative care consult ordered continue with aggressive care per family request. (2) Sepsis Status: Acute Plan: ID consulted and managing. On antibiotics. WBC stable at 7.45 Remains Afebrile (3) Respiratory failure Status: Acute Plan: [place] managing. Patient has been extubated and is on O2 liters NC. Swallow evaluation this AM. HOB at 30 degrees. (4) Anemia Status: Acute Plan: HGB stable at 8.7 monitoring (5) Abnormal blood electrolyte level Status: Acute Plan: Magnesium replacement given. Potassium good. Assessment and Plan Assessment and plan discussed with Dr. Kendrick. Palliative care following Discussed Condition With Nursing. Dayanara Barbour Nov 18, 2016 06:41
[2016-11-18] MEDS: MAGNESIUM SULFATE INJ 2 GM in SODIUM CHLORIDE 0.9% INJ 96 ML IV PRN (06:47)
--- NOTE | 2016-11-18 07:16 | HHI.CCPN ---
Subjective Remarks/Hospital Course This 86 year-old woman who presents to the emergency department complaining of nausea vomiting, low back pain, and chills on 11/05/2016. She has a history of metastatic endometrial cancer diagnosed 5 years ago initially, as well as chronic back pain. The chronic back pain preceded the malignancy. Most recent PET scan as reported by daughter revealed multiple bony metastasis to include skull, and right upper arm. She underwent an L4-L5 laminectomy about 2 weeks ago in [facility] . Prior to her surgery , the patient was extremely physically active without any ambulation difficulties.She was doing well initially but over the past several days complained of increased nausea vomiting, increased low back pain, and chills. Upon admission incision has not had any drainage or bleeding,and she denied any urinary symptoms. The patient was admitted to [facility] on 11/05/2016, she subsequently has begun to have leukocytosis, urinary retention and noted drainage from lumbar laminectomy surgical site. Lumbar CT scan revealed postop laminectomy L4 with fluid and scattered bubbles possibly resolving hematoma, abscess could not be excluded. ID and Neurosurgery was consulted.Critical care medicine is consult that for patients noted sepsis, and progressive weakness bilateral lower extremities. Subjective: 11/07 Seen upon return from the OR following lumbar wound debridement and evacuation of epidural abscess by Dr. Melissa. Patient is to remain intubated per Dr. Melissa as she must be maintained with HOB flat due to dural leak (but rotate side to side q2 hours). At present she is not on continuous sedation, but is unresponsive to deep noxious stimuli upon return from general anesthesia. Reportedly large amount of respiratory secretions noted upon intubation by anesthesia. Routine airway per documentation. She received 1800 crystalloid intraoperatively. EBL 20 ml. 11/08: Afebrile. Patient remains on propofol infusion, moving bilateral upper and lower extremities wiggling toes and moving upper extremities. The patient was inadvertently placed on fentanyl infusion last night for purported pain. Fentanyl infusion discontinued, patient on when necessary pain medicine now currently following commands and denies pain. Leukocytosis resolved, the patient continues on Flagyl, Vancomycin and Ceptazidime per ID Dr. Nina. The patient remains flat in bed, supine position in order to begin nutrition PPN was initiated this a.m.. Extensive discussion with Dr. Melissa and Dr. Nina and palliative care consulted with planned discussion with family today. 11/09: Leukocytosis resolved. Wound culture was noted staph aureus. Patient was noted to have hypophosphatemia and hypomagnesemia ischemia which are being currently replaced. PPN was initiated for nutritional support secondary to put required positioning. Palliative care was consulted to discuss goals of care, currently aggressive treatment management continued per family request. 11/10: Afebrile .No acute events overnight. Patient underwent placement of CSF drain yesterday by interventional radiology. Patient's head of the bed to remain flat until Tuesday. The patient continues to have low phosphate and was placed on scheduled doses of phosphorus yesterday. Family requesting medication administration of vitamin C secondary to a small non-scientific research study that was published recently. Explained to family that it wasn't in evidence-based full research study performed but a small study without any level of evidence for implementation in the [place] at this time. Vitamin C is not indicated at this time. The family was educated by neurosurgery that the patient may have to possibly have surgery. 11/11 Tmax 99.0. The patient's CSF lumbar drain reevaluated by Dr. Melissa last evening, now draining fluid. No further drainage from surgical site. The patient remains in a supine position, PPN infusing for nutritional support. Her electrolytes continually being replaced per protocol. The patient remains on low-dose propofol infusion. Patient responsive following commands. 11/12: Patient was noted not to be moving upper extremities on command. Patient off sedation greater than 24 hours. MRI obtained today. Patient will return to surgery with Dr. Melissa. Lumbar drain dressing dry, with CSF draining. 11/13: The patient returned to neurosurgery yesterday, new lumbar drain placed. Minimal movement of bilateral upper extremities noted this a.m.. Patient moving hands minimally lifting arms, wiggling fingers and toes. 11/14:Afebrile: No acute changes overnight. Patient responsive to family, follows commands. The patient continues to be in supine position only to be log rolled secondary. Lumbar drain patent. 11/15 Patient remains intubated. On no sedation awake. Afebrile. Patient is in supine position lumbar drain in place. 11/16 No acute events overnight. Awake on ACV with PEEP:5 and FIO2 35%. On no sedation. 11/17 Patient is sedated with Diprivan and intubated. Afebrile. 11/18 Patient s/p extubation yesterday. Awake and alert. Afebrile. Lumbar drain still in place. Objective Vital Signs Date Time Temp Pulse Resp B/P Pulse Ox O2 Delivery O2 Flow Rate FiO2 11/18/16 06:00 107 11/18/16 04:00 98.2 17 139/80 100 154/65 11/17/16 20:40 Nasal Cannula 2.00 11/17/16 12:00 30 Intake and Output 11/17/16 11/17/16 11/18/16 08:00 16:00 00:00 Intake Total 513 ml 388 ml 98 ml Output Total 500 ml 1310 ml 460 ml Balance 13 ml -922 ml -362 ml Result Diagram: 11/18/16 0315 11/18/16 0315 Other Results Laboratory Tests Test 11/18/16 03:15 White Blood Count 7.5 TH/MM3 Red Blood Count 2.74 MIL/MM3 Hemoglobin 8.7 GM/DL Hematocrit 25.7 % Mean Corpuscular Volume 93.9 FL Mean Corpuscular Hemoglobin 31.7 PG Mean Corpuscular Hemoglobin 33.8 % Concent Red Cell Distribution Width 14.1 % Platelet Count 299 TH/MM3 Mean Platelet Volume 8.2 FL Neutrophils (%) (Auto) 77.5 % Lymphocytes (%) (Auto) 3.8 % Monocytes (%) (Auto) 15.2 % Eosinophils (%) (Auto) 2.9 % Basophils (%) (Auto) 0.6 % Neutrophils # (Auto) 5.8 TH/MM3 Lymphocytes # (Auto) 0.3 TH/MM3 Monocytes # (Auto) 1.1 TH/MM3 Eosinophils # (Auto) 0.2 TH/MM3 Basophils # (Auto) 0.0 TH/MM3 CBC Comment DIFF FINAL Differential Comment Sodium Level 136 MEQ/L Potassium Level 3.8 MEQ/L Chloride Level 103 MEQ/L Carbon Dioxide Level 26.5 MEQ/L Anion Gap 7 MEQ/L Blood Urea Nitrogen 14 MG/DL Creatinine 0.38 MG/DL Estimat Glomerular Filtration 161 ML/MIN Rate Random Glucose 111 MG/DL Calcium Level 8.6 MG/DL Phosphorus Level 2.5 MG/DL Magnesium Level 1.5 MG/DL Imaging Last Impressions Chest X-Ray 11/15/16 0600 Signed Impressions: Service Date/Time: Tuesday, November 15, 2016 04:15 - CONCLUSION: Tubes and catheters are in good position. Mild pulmonary vascular congestion persists Jimi Schrader MD Thoracic Spine MRI 11/12/16 0000 Signed Impressions: Service Date/Time: Saturday, November 12, 2016 11:46 - CONCLUSION: 1. Degenerative changes but no canal or foraminal narrowing. 2. No evidence for abscess. 3. T5 and T2 vertebral body lesions are noted. Metastatic deposits are not excluded. 4. Extensive subcutaneous edema of the upper thorax and cervical region. 5. Large bilateral pleural effusions. Jesús Anderson MD Lumbar Spine X-Ray 11/12/16 Signed Impressions: Service Date/Time: Saturday, November 12, 2016 21:53 - CONCLUSION: 1. Postsurgical changes as above. Reed George MD Lumbar Spine MRI 11/12/16 0000 Signed Impressions: Service Date/Time: Saturday, November 12, 2016 11:46 - CONCLUSION: 1. Complex fluid collection appears slightly increased in sagittal dimension with rim enhancement and marked surrounding edema and enhancement of the paraspinal soft tissues. This is consistent with the clinical history of abscess. 2. There is severe associated spinal stenosis secondary to mass effect from the fluid collection. Jesús Anderson MD Cervical Spine MRI 11/12/16 Signed Impressions: Service Date/Time: Saturday, November 12, 2016 11:46 - CONCLUSION: 1. No evidence for abscess. 2. Nonspecific enhancing lesion of the T2 vertebral body, as well as diffuse decreased T1 signal involving the C7 pedicle and transverse process. The possibility of metastatic disease should be excluded. 3. Severe canal stenosis with cord compression at C5-6 and moderate canal stenosis at C4-5. Jesús Anderson MD ADDENDUM: There is extensive subcutaneous edema of the cervical and upper thoracic subcutaneous tissues posteriorly. Jesús Anderson MD Brain MRI 11/12/16 0000 Signed Impressions: Service Date/Time: Saturday, November 12, 2016 11:46 - CONCLUSION: 1. There are no findings to indicate acute infarct. 2. Abnormal signal layering within the occipital horns bilaterally likely representing a small amount of blood products. This finding is new compared to the prior CT. 3. Chronic changes include generalized atrophy and periventricular white matter change characteristic of chronic microvascular ischemia. Naveed Smith MD Lumbar Puncture Fluoroscopy 4/11/17 0000 Signed Impressions: Service Date/Time: Wednesday, November 09, 2016 16:21 - CONCLUSION: Uncomplicated lumbar drain placement as above. Naveed Rosenthal MD Entire Spine MRI 11/06/16 0000 Signed Impressions: Service Date/Time: Sunday, November 06, 2016 14:28 - CONCLUSION: 1. As noted on the MRI lumbar spine there is a complex fluid collection in the soft tissues posterior to the spinal canal at the level of L4 measuring 3.4 x 3.1 x 3.9 cm suggestive of a postoperative hematoma/seroma. An abscess cannot be excluded. 2. Abnormal signal in the body of T2 suspicious for bony metastatic disease. 3. Status post fusion of C6-7. 4. Broad-based bulging with disc osteophyte complexes at C4-5 and C5-6. Possible myelopathy in the cord at this level. Patrick Chavez MD Lumbar Spine CT 11/05/16 0000 Signed Impressions: Service Date/Time: Saturday, November 05, 2016 04:14 - CONCLUSION: 1. Postop laminectomy at L4 level with fluid within the operative bed and a few scattered gas bubbles may be postsurgical change and possibly resolving hematoma, however abscess is not excluded. No definite signs of osteomyelitis. 2. Neural foramina compromise left L2-L3, bilateral L4-L5. 3. Bilateral masses compromise L5-S1. 4. Residual slight thecal sac stenosis may be present at L3-4 and L4-5. Deangelo Monsivais MD Head CT 11/05/16 0000 Signed Impressions: Service Date/Time: Saturday, November 05, 2016 16:08 - CONCLUSION: 1. No acute intracranial abnormality. Hussain Sandoval MD Abdomen/Pelvis CT 11/05/16 0000 Signed Impressions: Service Date/Time: Saturday, November 05, 2016 16:12 - CONCLUSION: 1. There is residual IV contrast within the kidneys and bladder. 2. There are no findings to indicate a bowel obstruction. 3. The patient is post hysterectomy. Hussain Sandoval MD Objective Remarks GENERAL: Patient is lying in bed in NAD SKIN: Warm and dry. HEAD: Normocephalic. EYES: No scleral icterus. No injection or drainage. NECK: Supple, trachea midline. No JVD or lymphadenopathy. CARDIOVASCULAR: Tachycardic ,nl S1, S2, 2/6 systolic murmur left sternal border RESPIRATORY: Breath sounds equal bilaterally. No accessory muscle use. GASTROINTESTINAL: Abdomen soft, non-tender, nondistended. MUSCULOSKELETAL: No cyanosis, + edema. BACK: Nontender without obvious deformity. No CVA tenderness. Neuro: Awake and alert A/P Assessment and Plan Plan by systems: Neurologic: Metabolic encephalopathy secondary to sepsis- resolved Lumbar epidural abscess Status post lumbar wound debridement and drainage epidural abscess 11/07/16 (Dr. Melissa) S/P exploration, irrigation and replacement of lumbar drain 11/12/16 (Dr. Melissa) Awake and alert avoid sedatives Neurochecks every 2 hour per ICU protocol 11/05 CT lumbar spine-postop laminectomy L4 with fluid and scattered bubbles possibly resolving hematoma. Abscess cannot be excluded. Neural foraminotomy not compromise left L2-3, L4-L5, residual thecal sac stenosis may be present L3 L4, L4-L5,B/L mass compromise L5-S1. MRI -post surgical changes with hematoma/seroma ? Abscess L3/L4 and L4/L5. 11/07-postop CSF leak, spinal epidural abscess, postoperative wound dehiscence, pre-existing dural tear with repair, status post debridement lumbar wound dehiscence, evacuation of lumbar abscess indirect repair of pre-existing dural tear Reportedly persistent dural leak noted intraoperatively. Patient is to remain head of bed down/supine per Dr. Melissa. EEG 11/06/16moderately slow background consistent with encephalopathy. No epileptiform features. Neurology following, Dr. Thomson NSG following, Dr. Melissa 11/09 IR CSF drain L1-L2 11/12 CT lumbar spine L3-4, L4-5 mass effect. 11/12 Replacement of lumbar drain and evaluation in OR 11/12 CT [id number] cervical moderate left foraminal stenosis, C3-C4 severe left foraminal stenosis, C4-C5 mild bilateral foraminal stenosis mild abutment of ordered, C5-C6 mild cord compression 11/12 CT thoracic-T2 and T5 lesion cannot rule out metastasis Monitor Lumbar drainage ( drained 138ml ). Respiratory: Acute respiratory failure- Extubated 11/17 Continue with oxygen keep sat >92% Bronchodilators CT [id number] bilateral pleural effusions, T2 and T5 lesions cannot rule out metastatic disease Cardiovascular: Place on Lopressor 25mg PO Q12- Monitor HR and BP Maintain MAP > 65 mmHg FEN/RENAL Acute kidney injury- resolved Neurogenic bladder with urinary retention. Hyponatremia Monitor renal function, I/O's, Electrolyte replacement per ICU protocol GI: Moderate protein energy malnutrition PPN Speech eval, diet per speech Seen by Dr. Hale, no GI issues identified. ID: Severe sepsis-resolved Leukocytosis-resolved Bandemia Abx per ID ( Cefazolin) monitor for signs of infections ( Fever, WBC) HEME: Metastatic Endometrial cancer s/p recent chemotherapy 10/06 Chronic anemia Monitor CBC Endocrine: Low-dose insulin sliding scale at bedside glucose every 6 hours. GI Prophylaxis Pepcid twice a day DVT Prophylaxis -- SCDs. Hold pharmacologic DVT prophylaxis defer to neurosurgery when to initiate. ACCESS: Port accessed right chest. d/c Art line Palliative care following Level 3 Yves Sanchez MD Nov 18, 2016 07:16
[2016-11-18] MEDS: CHLORHEXIDINE 0.12% (ORAL KIT) 15 ML CUP MT SCH ×2 (08:00→19:45)
[2016-11-18] MEDS: SODIUM CHLORIDE 0.9% FLUSH 10 ML FLUSH IV FLUSH SCH ×2 (09:00→20:44)
[2016-11-18] MEDS: POTASSIUM PHOSPHATE MONOBASIC 500 MG TAB PO SCH (10:00)
[2016-11-18] MEDS: SODIUM CHLORIDE 1 GRAM TAB PO SCH ×2 (10:00→20:45)
[2016-11-18] MEDS: METOPROLOL TARTRATE 25 MG TAB PO SCH ×2 (10:00→20:45)
[2016-11-18] MEDS: HYDROmorphone HCL PF 1 MG/ML VIAL IV PUSH PRN ×3 (10:12→20:46)
--- NOTE | 2016-11-18 19:07 | HHI.NSPN ---
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 Patient presents to the emergency room on 11/05/16 with decreasing mental status, GI symptoms, and subsequent opening of the wound with wound dehiscence and purulent drainage. 11/07/16: Patient to surgery on an urgent basis for evacuation of epidural abscess , wound debridement. Patient found to have pre-existing dural tear with CSF leakage which could not be primarily repaired. Indirect repair of dural tear with blood clot, Gelfoam, thrombin, tissue glue and reclosure of wound site. 11/08/16: Patient remains intubated, sedated, head of bed flat. Dressing dry and intact 11/09/16: Patient remains intubated. Slight amount of drainage noted from incision. Lumbar subarachnoid drain placed per interventional radiology 11/10/16: Lumbar subarachnoid drain is not functioning well. Discussed with nursing staff 11/11/16: Intermittent drainage from subarachnoid drain. Wound and dressing dry and the morning. 11/12/16: Subarachnoid drain with minimal output. Mild drainage from wound. To OR for: 1. Exploration and debridement previous L4 5 wound site. 2. Revision indirect closure right L4 5 lateral dural tear 3. Placement of lumbar subarachnoid drain, removal previous subarachnoid drain 11/13: pt intubated, POD 1 s/p replacement of lumbar drain with closure of CSF with leak with Dr. Melissa 11/14: intubated, more awake today, moving legs more. 11/15: POD # 3, patient remains intubated, opens eyes spontaneously, following commands, lumbar drain still in place, daughter reports that patient did attempt to reach for ETT yesterday with both upper extremities 11/17/16: Extubated. Sitting up in bed. Lumbar drain remains in place 11/18: Patient states she is doing good. She denies any pain. Lumbar drain still in place. (Noah Ford) Labs, Micro, & Vital Signs Results Allergies Coded Allergies Type Severity Reaction Last Updated Verified Penicillin Allergy Severe Rash 11/06/16 Yes /18/////// 06:00 18:00 06:00 18:00 06:00 18:00 Intake Total 905 ml 566 ml 1009 ml 388 ml 173 ml 90 ml Output Total 1249 ml 1570 ml 1160 ml 1310 ml 1078 ml 750 ml Balance -344 ml -1004 ml -151 ml -922 ml -905 ml -660 ml Intake IV Total 88 ml 47 ml 243 ml 173 ml 90 ml TPN/PPN 563 ml 421 ml 571 ml 315 ml Lipid 134 ml 98 ml 135 ml 73 ml Other 120 ml 60 ml Output Urine Total 850 ml 1500 ml 850 ml 1200 ml 1000 ml 750 ml Gastric Drainage Total 300 ml 200 ml 50 ml Drainage Total 99 ml 70 ml 110 ml 60 ml 78 ml # Bowel Movements 0 0 0 0 Laboratory Tests Test 11/16/16 11/17/16 11/18/16 03:40 03:15 03:15 White Blood Count 7.5 TH/MM3 7.4 TH/MM3 7.5 TH/MM3 Red Blood Count 2.68 MIL/MM3 2.68 MIL/MM3 2.74 MIL/MM3 Hemoglobin 8.6 GM/DL 8.5 GM/DL 8.7 GM/DL Hematocrit 24.6 % 24.8 % 25.7 % Mean Corpuscular Volume 91.8 FL 92.7 FL 93.9 FL Mean Corpuscular Hemoglobin 32.0 PG 31.7 PG 31.7 PG Mean Corpuscular Hemoglobin 34.9 % 34.2 % 33.8 % Concent Red Cell Distribution Width 14.1 % 14.4 % 14.1 % Platelet Count 287 TH/MM3 284 TH/MM3 299 TH/MM3 Mean Platelet Volume 9.0 FL 8.9 FL 8.2 FL Neutrophils (%) (Auto) 76.2 % 74.2 % 77.5 % Lymphocytes (%) (Auto) 5.0 % 4.6 % 3.8 % Monocytes (%) (Auto) 15.5 % 16.2 % 15.2 % Eosinophils (%) (Auto) 2.7 % 4.1 % 2.9 % Basophils (%) (Auto) 0.6 % 0.9 % 0.6 % Neutrophils # (Auto) 5.7 TH/MM3 5.5 TH/MM3 5.8 TH/MM3 Lymphocytes # (Auto) 0.4 TH/MM3 0.3 TH/MM3 0.3 TH/MM3 Monocytes # (Auto) 1.2 TH/MM3 1.2 TH/MM3 1.1 TH/MM3 Eosinophils # (Auto) 0.2 TH/MM3 0.3 TH/MM3 0.2 TH/MM3 Basophils # (Auto) 0.0 TH/MM3 0.1 TH/MM3 0.0 TH/MM3 CBC Comment AUTO DIFF DIFF FINAL DIFF FINAL Differential Comment AUTO DIFF CONFIRMED Sodium Level 133 MEQ/L 135 MEQ/L 136 MEQ/L Potassium Level 3.6 MEQ/L 3.4 MEQ/L 3.8 MEQ/L Chloride Level 96 MEQ/L 100 MEQ/L 103 MEQ/L Carbon Dioxide Level 28.5 MEQ/L 26.8 MEQ/L 26.5 MEQ/L Anion Gap 9 MEQ/L 8 MEQ/L 7 MEQ/L Blood Urea Nitrogen 17 MG/DL 17 MG/DL 14 MG/DL Creatinine 0.40 MG/DL 0.39 MG/DL 0.38 MG/DL Estimat Glomerular Filtration 152 ML/MIN 156 ML/MIN 161 ML/MIN Rate Random Glucose 119 MG/DL 118 MG/DL 111 MG/DL Calcium Level 8.4 MG/DL 8.5 MG/DL 8.6 MG/DL Phosphorus Level 2.5 MG/DL 2.5 MG/DL Magnesium Level 1.7 MG/DL 1.5 MG/DL Procedure Category Date Status Time Complete Blood Count LAB 11/17/16 Complete With Diff 06:00 Basic Metabolic Panel LAB 11/17/16 Complete (Bmp) 06:00 Resp Cpap Trial RSP 11/16/16 Complete Phenyleph/Ns 1000 MED 11/07/16 Complete Mcg/10ml Syr (Neosynep 12:00 Sodium Chlor 0.9% 250 MED 11/07/16 Complete Ml Inj (Ns 250 Ml 12:00 Sodium Chlor 0.9% MED 11/07/16 Complete 1000 Ml Inj (Ns 1000 M 12:00 Complete Blood Count LAB 11/18/16 Complete With Diff 06:00 Basic Metabolic Panel LAB 11/18/16 Complete (Bmp) 06:00 Magnesium (Mg) LAB 11/18/16 Complete 06:00 Phosphorus (Po4) LAB 11/18/16 Complete 06:00 ^ Instruction KWAN 11/17/16 In Process 15:18 Change Dressing KWAN 11/17/16 In Process 15:18 Resp Extubation RSP 11/17/16 Complete Swallow Eval W/ St ST 11/17/16 Logged 15:44 Albuterol-Ipratropium MED 11/17/16 In Process Neb (Duoneb Neb) 16:00 Albuterol-Ipratropium MED 11/17/16 In Process Neb (Duoneb Neb) 15:45 Metoprolol Tartrate MED 11/18/16 In Process (Lopressor) 09:00 Complete Blood Count LAB 11/19/16 Verified With Diff 06:00 Basic Metabolic Panel LAB 11/19/16 Verified (Bmp) 06:00 ^ Other Nursing Orders KWAN 11/18/16 In Process 07:16 Diet Heart Healthy DIET 11/18/16 Transmitted Breakfast Vital Signs Date Time Temp Pulse Resp B/P Pulse Ox O2 Delivery O2 Flow Rate FiO2 11/18/16 18:00 87 11/18/16 16:00 81 11/18/16 16:00 97.9 81 19 76/43 97 101/43 11/18/16 14:00 83 11/18/16 12:00 85 11/18/16 12:00 98.0 85 14 106/55 99 111/50 11/18/16 10:00 105 11/18/16 09:29 99 Nasal Cannula 3.00 11/18/16 08:00 101 11/18/16 08:00 97.7 101 18 123/56 97 145/59 11/18/16 07:00 97 Nasal Cannula 2.00 11/18/16 06:00 107 11/18/16 04:00 118 11/18/16 04:00 98.2 118 17 139/80 100 154/65 11/18/16 02:00 107 11/18/16 00:00 98.0 112 21 126/69 97 103/89 11/18/16 00:00 112 11/17/16 22:00 118 11/17/16 20:40 99 Nasal Cannula 2.00 11/17/16 20:00 98.6 103 18 116/56 100 99/85 11/17/16 20:00 103 11/17/16 19:10 99 Nasal Cannula 2.00 11/17/16 18:00 109 11/17/16 16:02 95 Nasal Cannula 4.00 11/17/16 16:02 95 Nasal Cannula 4 11/17/16 16:00 110 11/17/16 16:00 98.2 110 22 165/73 97 151/68 11/17/16 16:00 97 Nasal Cannula 4.00 11/17/16 14:00 98 11/17/16 12:15 15 11/17/16 12:00 30 11/17/16 12:00 90 11/17/16 12:00 98.7 90 15 89/54 96 95/51 11/17/16 11:40 96 30 11/17/16 10:00 97 11/17/16 08:00 101 11/17/16 08:00 98.8 109 16 107/53 99 149/60 11/17/16 08:00 30 11/17/16 07:44 95 30 11/17/16 06:00 106 11/17/16 04:13 100 30 11/17/16 04:00 100 11/17/16 04:00 98.5 100 16 125/59 100 140/57 11/17/16 04:00 30 11/17/16 02:00 96 11/17/16 01:06 100 30 11/17/16 00:00 93 11/17/16 00:00 30 11/17/16 00:00 98.0 93 15 119/62 100 141/62 11/16/16 22:05 100 30 11/16/16 22:00 93 11/16/16 20:00 30 11/16/16 20:00 98.4 92 15 147/72 100 173/74 17 20:00 92 17 19:05 100 30 17 18:00 82 17 16:00 30 11/16/16 16:00 98.4 79 26 146/78 94 128/56 1817 16:00 86 17 14:00 84 1817 12:00 91 17 12:00 30 11/16/16 12:00 98.8 98 18 102/59 92 118/59 4/18/17 11:35 95 30 11/16/16 10:00 88 11/16/16 08:00 106 11/16/16 08:00 30 11/16/16 08:00 98.9 106 26 138/80 97 158/66 11/16/16 07:58 99 30 11/16/16 06:00 95 11/16/16 04:05 97 30 11/16/16 04:00 30 11/16/16 04:00 98 11/16/16 04:00 99.0 98 21 139/62 95 147/60 11/16/16 02:00 93 11/16/16 01:02 99 30 11/16/16 00:00 98.8 93 15 111/59 98 137/54 11/16/16 00:00 96 11/16/16 00:00 30 11/15/16 23:05 99 30 11/15/16 22:00 103 11/15/16 20:00 30 11/15/16 20:00 98.6 98 15 107/55 98 104/49 11/15/16 20:00 98 Date Time Temp Pulse Resp B/P Pulse Ox O2 Delivery O2 Flow Rate FiO2 11/18/16 18:00 87 11/18/16 16:00 81 11/18/16 16:00 97.9 81 19 76/43 97 101/43 11/18/16 14:00 83 11/18/16 12:00 85 11/18/16 12:00 98.0 85 14 106/55 99 111/50 11/18/16 10:00 105 11/18/16 09:29 99 Nasal Cannula 3.00 11/18/16 08:00 101 11/18/16 08:00 97.7 101 18 123/56 97 145/59 11/18/16 07:00 97 Nasal Cannula 2.00 11/18/16 06:00 107 11/18/16 04:00 118 11/18/16 04:00 98.2 118 17 139/80 100 154/65 11/18/16 02:00 107 11/18/16 00:00 98.0 112 21 126/69 97 103/89 11/18/16 00:00 112 11/17/16 22:00 118 11/17/16 20:40 99 Nasal Cannula 2.00 11/17/16 20:00 98.6 103 18 116/56 100 99/85 11/17/16 20:00 103 11/17/16 19:10 99 Nasal Cannula 2.00 11/18/16 07:00 Intake Total 561 ml Output Total 2388 ml Balance -1827 ml Constitutional Vital Signs Date Time Temp Pulse Resp B/P Pulse Ox O2 Delivery O2 Flow Rate FiO2 11/18/16 18:00 87 11/18/16 16:00 81 11/18/16 16:00 97.9 81 19 76/43 97 101/43 11/18/16 14:00 83 11/18/16 12:00 85 11/18/16 12:00 98.0 85 14 106/55 99 111/50 11/18/16 10:00 105 11/18/16 09:29 99 Nasal Cannula 3.00 11/18/16 08:00 101 11/18/16 08:00 97.7 101 18 123/56 97 145/59 11/18/16 07:00 97 Nasal Cannula 2.00 11/18/16 06:00 107 11/18/16 04:00 118 11/18/16 04:00 98.2 118 17 139/80 100 154/65 11/18/16 02:00 107 11/18/16 00:00 98.0 112 21 126/69 97 103/89 11/18/16 00:00 112 11/17/16 22:00 118 11/17/16 20:40 99 Nasal Cannula 2.00 11/17/16 20:00 98.6 103 18 116/56 100 99/85 11/17/16 20:00 103 11/17/16 19:10 99 Nasal Cannula 2.00 11/18/16 07:00 Intake Total 561 ml Output Total 2388 ml Balance -1827 ml (Noah Ford) Review of Systems/Exam ROS Neuro: Denies any headache, dizziness, numbness, tingling or weakness. Resp: Denies any shortness of breath. Cardiac: Denies any chest pain or palpitations. GI: Denies any abdominal pain, N/V, or incontinence of bowel. MS: Denies any neck or back pain. Exam Resp: CTAB w/o W/R/R, equal excursion, non-laboured. CV: RRR w/o M/G/R, radial & pedal pulses 2+ bilaterally, cap refill < 2 sec. Monitor is sinus rhythm w/o any ectopy noted. GI: Abdomen soft, nontender, positive bowel sounds. MS: Extremities warm, dry & pink, without any deformity or clubbing. Neuro: Asleep but awakens to verbal stimuli, fairly alert after that, oriented to self only, speech clear but inappropriate to questions at times, follows simple commands, sensation appears to be grossly intact to all extremities to light touch, motor strength BUE & BLE 3/5. Lumbar drain with light yellow CSF draining, insertion site with dry & intact dressing, HOB at 45. (Noah Ford) Medications Current Medications Current Medications Medications (Trade) Dose Ordered Sig/Aleja Route Start Time Stop Time Status Last Admin (Tylenol Supp) 650 mg Q4H PRN RECTAL 11/05/16 18:30 11/05/16 18:30 (NS Flush) 2 ml UNSCH PRN IV FLUSH 11/06/16 12:30 11/11/16 08:31 (NS Flush) 2 ml BID IV FLUSH 11/06/16 21:00 11/18/16 09:00 (Tylenol) 650 mg Q6H PRN PO 11/06/16 12:30 11/08/16 16:01 (Zofran Inj) 4 mg Q6H PRN IV 11/06/16 12:30 (Dulcolax Supp) 10 mg DAILY PRN RECTAL 11/06/16 12:30 Miscellaneous Information 1 Q361D XX 11/06/16 12:30 (Chlorhexidine 2% Cloth) Taper DAILY@04 TOP 11/07/16 04:00 11/03/17 03:59 11/15/16 04:00 (Chlorhexidine 2% Cloth) 3 pack UNSCH PRN TOP 11/06/16 12:30 (Peridex 0.12% Liq) 15 ml BID@08,20 MT 11/07/16 08:00 11/17/16 07:53 (D50w (Vial) Inj) 25 ml UNSCH PRN IV PUSH 11/07/16 04:15 (Glucagon Inj) 1 mg UNSCH PRN OTHER 11/07/16 04:15 Insulin Aspart 1 1 Q6H SQ 11/07/16 06:00 11/12/16 17:09 Potassium Chloride 100 ml @ 50 mls/hr Q2H PRN IV-CENTRAL 11/07/16 08:45 11/07/16 23:30 Potassium Chloride 100 ml @ 50 mls/hr Q2H PRN IV 11/07/16 08:45 Potassium Chloride 100 ml @ 25 mls/hr UNSCH PRN IV-CENTRAL 11/07/16 08:45 Potassium Chloride 100 ml @ 50 mls/hr Q2H PRN IV 11/07/16 08:45 11/17/16 07:53 (Magnesium Sulfate Inj/NS Inj) 100 ml @ 50 mls/hr UNSCH PRN IV 11/07/16 08:45 Magnesium Oxide 800 mg 800 mg UNSCH PRN PO 11/07/16 08:45 11/11/16 08:31 (Magnesium Sulfate Inj/NS Inj) 100 ml @ 50 mls/hr UNSCH PRN IV 11/07/16 08:45 11/18/16 06:47 Potassium Phosphate 2000 mg 2,000 mg Q4H PRN PO 11/07/16 08:45 11/12/16 08:42 (Sodium Phosphate Inj/NS 250 ml Inj) 250 ml @ 42 mls/hr UNSCH PRN IV 11/07/16 08:45 Potassium Phosphate 2000 mg 2,000 mg UNSCH PRN PO/TUBE 11/07/16 08:45 (Potassium Phosphate Inj/NS 250 ml Inj) 260 ml @ 42 mls/hr UNSCH PRN IV 11/07/16 08:45 11/10/16 06:09 (Pepcid Inj) 20 mg Q12H IV PUSH 11/07/16 16:00 11/18/16 17:09 (Lopressor Inj) 2.5 mg Q6H PRN IV PUSH 11/08/16 14:45 11/12/16 05:08 Hydromorphone HCl 1 mg 1 mg Q2HR PRN IV PUSH 11/08/16 15:45 11/18/16 14:25 (1/2 NS 1000 ml Inj) 1,000 ml @ 0 mls/hr Q0M IV 11/09/16 09:53 (K-Phos) 500 mg DAILY PO 11/10/16 09:00 11/18/16 10:00 (Trandate Inj) 10 mg Q1H PRN IV 11/13/16 01:30 11/13/16 09:09 Sodium Chloride 2 gm 2 gm BID PO 11/13/16 14:00 11/18/16 10:00 (Ancef 2 Gm Premix) 50 ml @ 100 mls/hr Q8H IV 11/13/16 22:00 11/18/16 14:10 (Lopressor) 25 mg Q12HR PO 11/18/16 09:00 11/18/16 10:00 (Noah Ford) Medical Decision Making MDM Remarks Status post repeat debridement lumbar wound dehiscence, replacement lumbar subarachnoid drain, indirect closure of CSF leak and dural tear. 11/12/16 Incision and dressing are dry this afternoon (Noah Ford) Plan Plan Remarks Discussed plan of care with patient Continue neuro checks Continue lumbar drain, plan to d/c Sunday 11/19 if dressing remains dry, then will observe over the weekend to ensure continued healing of wound prior to drain removal early next week Continue HOB 45 Mobilise to chair w/assistance Daily lumbar drain dressing changes (Noah Ford) Attending Statement I have personally seen and examined the patient on the date of this note. Pertinent documentation and study results have been reviewed by the undersigned. I have personally developed the treatment plan and performed medical decision making. Agree with findings, exam, and treatment plan as noted above. Continue lumbar drain at present. Dressing remains dry (Pratik Melissa MD) Noah Ford Nov 18, 2016 19:07 Pratik Melissa MD Nov 19, 2016 19:35
[2016-11-19] VITALS (13 sets, daily range): BP systolic 100–134; BP diastolic 56–81; PULSE 80–97; RESP 16–22; TEMP 97.6–98.4; O2SAT 96–100
[2016-11-19] MEDS: RESP: ALBUTEROL 2.5 MG/IPRATROPIUM 0.5 MG NEB (SCH) NEB ×4 (02:59→19:28)
[2016-11-19] MEDS: FAMOTIDINE 20 MG/2 ML VIAL IV PUSH SCH ×2 (03:02→17:31)
[2016-11-19] MEDS: HYDROmorphone HCL PF 1 MG/ML VIAL IV PUSH PRN ×2 (03:03→22:40)
[2016-11-19] MEDS: INSULIN ASPART SUPPLEMENTAL SCALE SQ SCH ×4 (04:59→23:22)
[2016-11-19] MEDS: ceFAZolin 2 GM PREMIX 50 ML IV SCH ×3 (05:00→21:10)
--- NOTE | 2016-11-19 06:34 | HHI.PR ---
Subjective Remarks Patient is alert and cooperative. Denies any CP or SOB, resting comfortably. Lumbar drain in place. VSS afebrile Objective Vital Signs Date Time Temp Pulse Resp B/P Pulse Ox O2 Delivery O2 Flow Rate FiO2 11/19/16 06:00 90 11/19/16 04:00 80 11/19/16 04:00 98.0 80 16 100/74 96 11/19/16 02:00 97 11/19/16 00:00 84 11/19/16 00:00 98.4 84 18 115/81 97 11/18/16 22:00 89 11/18/16 20:07 99 Nasal Cannula 2.00 11/18/16 20:00 90 11/18/16 20:00 98.6 98 20 126/85 96 11/18/16 19:00 96 Nasal Cannula 2.00 11/18/16 18:00 87 11/18/16 16:00 81 11/18/16 16:00 97.9 81 19 76/43 97 101/43 11/18/16 14:00 83 11/18/16 12:00 85 11/18/16 12:00 98.0 85 14 106/55 99 111/50 11/18/16 10:00 105 11/18/16 09:29 99 Nasal Cannula 3.00 11/18/16 08:00 101 11/18/16 08:00 97.7 101 18 123/56 97 145/59 11/18/16 07:00 97 Nasal Cannula 2.00 I/O 11/18/16 11/18/16 11/18/16 11/19/16 11/19/16 11/19/16 07:00 15:00 23:00 07:00 15:00 23:00 Intake Total 75 ml 90 ml 320 ml 298 ml Output Total 618 ml 750 ml 470 ml 400 ml Balance -543 ml -660 ml -150 ml -102 ml Intake Oral 240 ml 200 ml IV Total 75 ml 90 ml 80 ml 98 ml Output Urine Total 600 ml 750 ml 450 ml 400 ml Drainage Total 18 ml 20 ml # Bowel Movements 0 0 Result Diagram: 11/18/1631411/18/16314 Procedures replacement of CSF drain and dural patch 11/12 evacuation of epidural abscess 11/07 had laminectomy 2 weeks ago Objective Remarks GENERAL: Alert and cooperative SKIN: Warm and dry. Lumbar dressing on back HEAD: Normocephalic. EYES: No scleral icterus. No injection or drainage. NECK: Supple, trachea midline. No JVD or lymphadenopathy. CARDIOVASCULAR: Regular rate and rhythm without murmurs, gallops, or rubs. RESPIRATORY: Breath sounds equal bilaterally. No accessory muscle use. GASTROINTESTINAL: Abdomen soft, non-tender, nondistended. MUSCULOSKELETAL: No cyanosis. Generalized edema lumbar drain Medications and IVs Current Medications Medications (Trade) Dose Ordered Sig/Aleja Route Start Time Stop Time Status Last Admin (Tylenol Supp) 650 mg Q4H PRN RECTAL 11/05/16 18:30 11/05/16 18:30 (NS Flush) 2 ml UNSCH PRN IV FLUSH 11/06/16 12:30 11/11/16 08:31 (NS Flush) 2 ml BID IV FLUSH 11/06/16 21:00 11/18/16 20:44 (Tylenol) 650 mg Q6H PRN PO 11/06/16 12:30 11/08/16 16:01 (Zofran Inj) 4 mg Q6H PRN IV 11/06/16 12:30 (Dulcolax Supp) 10 mg DAILY PRN RECTAL 11/06/16 12:30 Miscellaneous Information 1 Q361D XX 11/06/16 12:30 (Chlorhexidine 2% Cloth) Taper DAILY@04 TOP 11/07/16 04:00 11/03/17 03:59 11/15/16 04:00 (Chlorhexidine 2% Cloth) 3 pack UNSCH PRN TOP 11/06/16 12:30 (Peridex 0.12% Liq) 15 ml BID@08,20 MT 11/07/16 08:00 11/17/16 07:53 (D50w (Vial) Inj) 25 ml UNSCH PRN IV PUSH 11/07/16 04:15 (Glucagon Inj) 1 mg UNSCH PRN OTHER 11/07/16 04:15 Insulin Aspart 1 1 Q6H SQ 11/07/16 06:00 11/12/16 17:09 Potassium Chloride 100 ml @ 50 mls/hr Q2H PRN IV-CENTRAL 11/07/16 08:45 11/07/16 23:30 Potassium Chloride 100 ml @ 50 mls/hr Q2H PRN IV 11/07/16 08:45 Potassium Chloride 100 ml @ 25 mls/hr UNSCH PRN IV-CENTRAL 11/07/16 08:45 Potassium Chloride 100 ml @ 50 mls/hr Q2H PRN IV 11/07/16 08:45 11/17/16 07:53 (Magnesium Sulfate Inj/NS Inj) 100 ml @ 50 mls/hr UNSCH PRN IV 11/07/16 08:45 Magnesium Oxide 800 mg 800 mg UNSCH PRN PO 11/07/16 08:45 11/11/16 08:31 (Magnesium Sulfate Inj/NS Inj) 100 ml @ 50 mls/hr UNSCH PRN IV 11/07/16 08:45 11/18/16 06:47 Potassium Phosphate 2000 mg 2,000 mg Q4H PRN PO 11/07/16 08:45 11/12/16 08:42 (Sodium Phosphate Inj/NS 250 ml Inj) 250 ml @ 42 mls/hr UNSCH PRN IV 11/07/16 08:45 Potassium Phosphate 2000 mg 2,000 mg UNSCH PRN PO/TUBE 11/07/16 08:45 (Potassium Phosphate Inj/NS 250 ml Inj) 260 ml @ 42 mls/hr UNSCH PRN IV 11/07/16 08:45 11/10/16 06:09 (Pepcid Inj) 20 mg Q12H IV PUSH 11/07/16 16:00 11/19/16 03:02 (Lopressor Inj) 2.5 mg Q6H PRN IV PUSH 11/08/16 14:45 11/12/16 05:08 Hydromorphone HCl 1 mg 1 mg Q2HR PRN IV PUSH 11/08/16 15:45 11/19/16 03:03 (1/2 NS 1000 ml Inj) 1,000 ml @ 0 mls/hr Q0M IV 11/09/16 09:53 11/18/16 20:46 (K-Phos) 500 mg DAILY PO 11/10/16 09:00 11/18/16 10:00 (Trandate Inj) 10 mg Q1H PRN IV 11/13/16 01:30 11/13/16 09:09 Sodium Chloride 2 gm 2 gm BID PO 11/13/16 14:00 11/18/16 20:45 (Ancef 2 Gm Premix) 50 ml @ 100 mls/hr Q8H IV 11/13/16 22:00 11/19/16 05:00 (Lopressor) 25 mg Q12HR PO 11/18/16 09:00 11/18/16 20:45 Assessment and Plan Problem List: (1) Spinal epidural abscess Status: Acute Plan: Patient to surgery on an urgent basis on the for evacuation of epidural abscess, wound debridement. Patient found to have pre-existing dural tear with CSF leakage which could not be primarily repaired. Indirect repair of dural tear with blood clot, Gelfoam, thrombin, tissue glue and reclosure of wound site. Dressing on site. Lumbar drain in place draining. If dressing remains dry, anticipate closure of drain on approximately 11/19/16 and will observe over the weekend to ensure continued healing of wound prior to drain placement early next week per note. Palliative care consult ordered continue with aggressive care per family request. PT eval and consult (2) Sepsis Status: Acute Plan: ID consulted and managing. On antibiotics. WBC stable. 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 Patient has been extubated and is on O2 liters NC. HOB at 45 degrees. Started on Diet. (4) Anemia Status: Acute Plan: HGB stable monitoring (5) Abnormal blood electrolyte level Status: Acute Plan: Labs pending Assessment and Plan Assessment and plan discussed with Dr. Kendrick. Palliative care following Discussed Condition With Nursing. Dayanara Barbour Nov 19, 2016 06:34
[2016-11-19 06:46] LABS: AUTOMATED NEUTROPHIL # 5.4 TH/MM3 (1.8-7.7); BASOPHIL # 0.1 TH/MM3 (0-0.2); BASOPHIL % 1.1 % (0.0-2.0); EOSINOPHIL # 0.3 TH/MM3 (0-0.4); EOSINOPHIL % 4.7 % (0.0-4.0); HEMATOCRIT 26.3 % (35.0-46.0); HEMO FLAGS DIFF FINAL; LYMPH % 5.3 % (9.0-44.0); LYMPHOCYTE # 0.4 TH/MM3 (1.0-4.8); MEAN CELL VOLUME 95.1 FL (80.0-100.0); MEAN CORPUSCULAR HEMOGLOBIN 32.8 PG (27.0-34.0); MEAN CORPUSCULAR HGB CONC 34.5 % (32.0-36.0); MONO % 14.9 % (0.0-8.0); PLATELET COUNT 297 TH/MM3 (150-450); RED BLOOD COUNT 2.76 MIL/MM3 (4.00-5.30); RED CELL DISTRIBUTION WIDTH 14.4 % (11.6-17.2); WHITE BLOOD COUNT 7.2 TH/MM3 (4.0-11.0)
[2016-11-19 07:05] LABS: BICARBONATE 26.5 MEQ/L (21.0-32.0); POTASSIUM 4.1 MEQ/L (3.5-5.1)
[2016-11-19] MEDS: CHLORHEXIDINE 0.12% (ORAL KIT) 15 ML CUP MT SCH ×2 (08:00→19:18)
[2016-11-19] MEDS: METOPROLOL TARTRATE 25 MG TAB PO SCH ×2 (08:38→21:00)
[2016-11-19] MEDS: SODIUM CHLORIDE 1 GRAM TAB PO SCH ×2 (08:38→21:10)
[2016-11-19] MEDS: POTASSIUM PHOSPHATE MONOBASIC 500 MG TAB PO SCH (08:38)
[2016-11-19] MEDS: SODIUM CHLORIDE 0.9% FLUSH 10 ML FLUSH IV FLUSH SCH ×2 (08:39→21:00)
--- NOTE | 2016-11-19 09:58 | HHI.CCPN ---
Subjective Remarks/Hospital Course This 86 year-old woman who presents to the emergency department complaining of nausea vomiting, low back pain, and chills on 11/05/2016. She has a history of metastatic endometrial cancer diagnosed 5 years ago initially, as well as chronic back pain. The chronic back pain preceded the malignancy. Most recent PET scan as reported by daughter revealed multiple bony metastasis to include skull, and right upper arm. She underwent an L4-L5 laminectomy about 2 weeks ago [facility] . Prior to her surgery , the patient was extremely physically active without any ambulation difficulties.She was doing well initially but over the past several days complained of increased nausea vomiting, increased low back pain, and chills. Upon admission incision has not had any drainage or bleeding,and she denied any urinary symptoms. The patient was admitted to [facility] on 11/05/2016, she subsequently has begun to have leukocytosis, urinary retention and noted drainage from lumbar laminectomy surgical site. Lumbar CT scan revealed postop laminectomy L4 with fluid and scattered bubbles possibly resolving hematoma, abscess could not be excluded. ID and Neurosurgery was consulted.Critical care medicine is consult that for patients noted sepsis, and progressive weakness bilateral lower extremities. Subjective: 11/07 Seen upon return from the OR following lumbar wound debridement and evacuation of epidural abscess by Dr. Melissa. Patient is to remain intubated per Dr. Melissa as she must be maintained with HOB flat due to dural leak (but rotate side to side q2 hours). At present she is not on continuous sedation, but is unresponsive to deep noxious stimuli upon return from general anesthesia. Reportedly large amount of respiratory secretions noted upon intubation by anesthesia. Routine airway per documentation. She received 1800 crystalloid intraoperatively. EBL 20 ml. 11/08: Afebrile. Patient remains on propofol infusion, moving bilateral upper and lower extremities wiggling toes and moving upper extremities. The patient was inadvertently placed on fentanyl infusion last night for purported pain. Fentanyl infusion discontinued, patient on when necessary pain medicine now currently following commands and denies pain. Leukocytosis resolved, the patient continues on Flagyl, Vancomycin and Ceptazidime per ID Dr. Nina. The patient remains flat in bed, supine position in order to begin nutrition PPN was initiated this a.m.. Extensive discussion with Dr. Melissa and Dr. Nina and palliative care consulted with planned discussion with family today. 11/09: Leukocytosis resolved. Wound culture was noted staph aureus. Patient was noted to have hypophosphatemia and hypomagnesemia ischemia which are being currently replaced. PPN was initiated for nutritional support secondary to put required positioning. Palliative care was consulted to discuss goals of care, currently aggressive treatment management continued per family request. 11/10: Afebrile .No acute events overnight. Patient underwent placement of CSF drain yesterday by interventional radiology. Patient's head of the bed to remain flat until Tuesday. The patient continues to have low phosphate and was placed on scheduled doses of phosphorus yesterday. Family requesting medication administration of vitamin C secondary to a small non-scientific research study that was published recently. Explained to family that it wasn't in evidence-based full research study performed but a small study without any level of evidence for implementation in the [place] at this time. Vitamin C is not indicated at this time. The family was educated by neurosurgery that the patient may have to possibly have surgery. 11/11 Tmax 99.0. The patient's CSF lumbar drain reevaluated by Dr. Melissa last evening, now draining fluid. No further drainage from surgical site. The patient remains in a supine position, PPN infusing for nutritional support. Her electrolytes continually being replaced per protocol. The patient remains on low-dose propofol infusion. Patient responsive following commands. 11/12: Patient was noted not to be moving upper extremities on command. Patient off sedation greater than 24 hours. MRI obtained today. Patient will return to surgery with Dr. Melissa. Lumbar drain dressing dry, with CSF draining. 11/13: The patient returned to neurosurgery yesterday, new lumbar drain placed. Minimal movement of bilateral upper extremities noted this a.m.. Patient moving hands minimally lifting arms, wiggling fingers and toes. 11/14:Afebrile: No acute changes overnight. Patient responsive to family, follows commands. The patient continues to be in supine position only to be log rolled secondary. Lumbar drain patent. 11/15 Patient remains intubated. On no sedation awake. Afebrile. Patient is in supine position lumbar drain in place. 11/16 No acute events overnight. Awake on ACV with PEEP:5 and FIO2 35%. On no sedation. 11/17 Patient is sedated with Diprivan and intubated. Afebrile. 11/18 Patient s/p extubation yesterday. Awake and alert. Afebrile. Lumbar drain still in place. 11/19 Patient is awake and alert lying in bed in NAD. Afebrile. Plan for possible closure of lumbar drain today per NSG. Objective Vital Signs Date Time Temp Pulse Resp B/P Pulse Ox O2 Delivery O2 Flow Rate FiO2 11/19/16 07:00 97 Nasal Cannula 2.00 11/19/16 06:00 90 11/19/16 04:00 98.0 16 100/74 11/17/16 12:00 30 Intake and Output 11/18/16 11/18/16 11/19/16 08:00 16:00 00:00 Intake Total 75 ml 90 ml 320 ml Output Total 618 ml 750 ml 470 ml Balance -543 ml -660 ml -150 ml Result Diagram: 11/19/16 0526 11/19/16 0626 Other Results Laboratory Tests Test 11/19/16 11/19/16 05:26 06:26 White Blood Count 7.2 TH/MM3 Red Blood Count 2.76 MIL/MM3 Hemoglobin 9.1 GM/DL Hematocrit 26.3 % Mean Corpuscular Volume 95.1 FL Mean Corpuscular Hemoglobin 32.8 PG Mean Corpuscular Hemoglobin 34.5 % Concent Red Cell Distribution Width 14.4 % Platelet Count 297 TH/MM3 Mean Platelet Volume 8.4 FL Neutrophils (%) (Auto) 74.0 % Lymphocytes (%) (Auto) 5.3 % Monocytes (%) (Auto) 14.9 % Eosinophils (%) (Auto) 4.7 % Basophils (%) (Auto) 1.1 % Neutrophils # (Auto) 5.4 TH/MM3 Lymphocytes # (Auto) 0.4 TH/MM3 Monocytes # (Auto) 1.1 TH/MM3 Eosinophils # (Auto) 0.3 TH/MM3 Basophils # (Auto) 0.1 TH/MM3 CBC Comment DIFF FINAL Differential Comment Sodium Level 135 MEQ/L Potassium Level 4.1 MEQ/L Chloride Level 102 MEQ/L Carbon Dioxide Level 26.5 MEQ/L Anion Gap 7 MEQ/L Blood Urea Nitrogen 15 MG/DL Creatinine 0.55 MG/DL Estimat Glomerular Filtration 105 ML/MIN Rate Random Glucose 102 MG/DL Calcium Level 8.8 MG/DL Imaging \ Last Impressions Chest X-Ray 11/15/16 0600 Signed Impressions: Service Date/Time: Tuesday, November 15, 2016 04:15 - CONCLUSION: Tubes and catheters are in good position. Mild pulmonary vascular congestion persists Jimi Schrader MD Thoracic Spine MRI 11/12/16 0000 Signed Impressions: Service Date/Time: Saturday, November 12, 2016 11:46 - CONCLUSION: 1. Degenerative changes but no canal or foraminal narrowing. 2. No evidence for abscess. 3. T5 and T2 vertebral body lesions are noted. Metastatic deposits are not excluded. 4. Extensive subcutaneous edema of the upper thorax and cervical region. 5. Large bilateral pleural effusions. Jesús Anderson MD Lumbar Spine X-Ray 11/12/16 0000 Signed Impressions: Service Date/Time: Saturday, November 12, 2016 21:53 - CONCLUSION: 1. Postsurgical changes as above. Reed George MD Lumbar Spine MRI 11/12/16 0000 Signed Impressions: Service Date/Time: Saturday, November 12, 2016 11:46 - CONCLUSION: 1. Complex fluid collection appears slightly increased in sagittal dimension with rim enhancement and marked surrounding edema and enhancement of the paraspinal soft tissues. This is consistent with the clinical history of abscess. 2. There is severe associated spinal stenosis secondary to mass effect from the fluid collection. Jesús Anderson MD Cervical Spine MRI 11/12/16 0000 Signed Impressions: Service Date/Time: Saturday, November 12, 2016 11:46 - CONCLUSION: 1. No evidence for abscess. 2. Nonspecific enhancing lesion of the T2 vertebral body, as well as diffuse decreased T1 signal involving the C7 pedicle and transverse process. The possibility of metastatic disease should be excluded. 3. Severe canal stenosis with cord compression at C5-6 and moderate canal stenosis at C4-5. Jesús Anderson MD ADDENDUM: There is extensive subcutaneous edema of the cervical and upper thoracic subcutaneous tissues posteriorly. Jesús Anderson MD Brain MRI 11/12/16 0000 Signed Impressions: Service Date/Time: Saturday, November 12, 2016 11:46 - CONCLUSION: 1. There are no findings to indicate acute infarct. 2. Abnormal signal layering within the occipital horns bilaterally likely representing a small amount of blood products. This finding is new compared to the prior CT. 3. Chronic changes include generalized atrophy and periventricular white matter change characteristic of chronic microvascular ischemia. Naveed Smith MD Lumbar Puncture Fluoroscopy 11/09/16 0000 Signed Impressions: Service Date/Time: Wednesday, November 09, 2016 16:21 - CONCLUSION: Uncomplicated lumbar drain placement as above. Naveed Rosenthal MD Entire Spine MRI 11/06/16 0000 Signed Impressions: Service Date/Time: Sunday, November 06, 2016 14:28 - CONCLUSION: 1. As noted on the MRI lumbar spine there is a complex fluid collection in the soft tissues posterior to the spinal canal at the level of L4 measuring 3.4 x 3.1 x 3.9 cm suggestive of a postoperative hematoma/seroma. An abscess cannot be excluded. 2. Abnormal signal in the body of T2 suspicious for bony metastatic disease. 3. Status post fusion of C6-7. 4. Broad-based bulging with disc osteophyte complexes at C4-5 and C5-6. Possible myelopathy in the cord at this level. Patrick Chavez MD Lumbar Spine CT 11/05/16 0000 Signed Impressions: Service Date/Time: Saturday, November 05, 2016 04:14 - CONCLUSION: 1. Postop laminectomy at L4 level with fluid within the operative bed and a few scattered gas bubbles may be postsurgical change and possibly resolving hematoma, however abscess is not excluded. No definite signs of osteomyelitis. 2. Neural foramina compromise left L2-L3, bilateral L4-L5. 3. Bilateral masses compromise L5-S1. 4. Residual slight thecal sac stenosis may be present at L3-4 and L4-5. Deangelo Monsivais MD Head CT 11/05/16 0000 Signed Impressions: Service Date/Time: Saturday, November 05, 2016 16:08 - CONCLUSION: 1. No acute intracranial abnormality. Hussain Sandoval MD Abdomen/Pelvis CT 11/05/16 0000 Signed Impressions: Service Date/Time: Saturday, November 05, 2016 16:12 - CONCLUSION: 1. There is residual IV contrast within the kidneys and bladder. 2. There are no findings to indicate a bowel obstruction. 3. The patient is post hysterectomy. Hussain Sandoval MD Objective Remarks GENERAL: Patient is lying in bed in NAD SKIN: Warm and dry. HEAD: Normocephalic. EYES: No scleral icterus. No injection or drainage. NECK: Supple, trachea midline. No JVD or lymphadenopathy. CARDIOVASCULAR: Tachycardic ,nl S1, S2, 2/6 systolic murmur left sternal border RESPIRATORY: Breath sounds equal bilaterally. No accessory muscle use. GASTROINTESTINAL: Abdomen soft, non-tender, nondistended. MUSCULOSKELETAL: No cyanosis, + edema. BACK: Nontender without obvious deformity. No CVA tenderness. Neuro: Awake and alert A/P Assessment and Plan Plan by systems: Neurologic: Metabolic encephalopathy secondary to sepsis- resolved Lumbar epidural abscess Status post lumbar wound debridement and drainage epidural abscess 11/07/16 (Dr. Melissa) S/P exploration, irrigation and replacement of lumbar drain 11/12/16 (Dr. Melissa) Awake and alert avoid sedatives Neurochecks every 2 hour per ICU protocol 11/05 CT lumbar spine-postop laminectomy L4 with fluid and scattered bubbles possibly resolving hematoma. Abscess cannot be excluded. Neural foraminotomy not compromise left L2-3, L4-L5, residual thecal sac stenosis may be present L3 L4, L4-L5,B/L mass compromise L5-S1. MRI -post surgical changes with hematoma/seroma ? Abscess L3/L4 and L4/L5. 11/07-postop CSF leak, spinal epidural abscess, postoperative wound dehiscence, pre-existing dural tear with repair, status post debridement lumbar wound dehiscence, evacuation of lumbar abscess indirect repair of pre-existing dural tear Reportedly persistent dural leak noted intraoperatively. Patient is to remain head of bed down/supine per Dr. Melissa. EEG 11/06/16moderately slow background consistent with encephalopathy. No epileptiform features. Neurology following, Dr. Thomson NSG following, Dr. Melissa 11/09 IR CSF drain L1-L2 11/12 CT lumbar spine L3-4, L4-5 mass effect. 11/12 Replacement of lumbar drain and evaluation in OR 11/12 CT [id number] cervical moderate left foraminal stenosis, C3-C4 severe left foraminal stenosis, C4-C5 mild bilateral foraminal stenosis mild abutment of ordered, C5-C6 mild cord compression 11/12 CT thoracic-T2 and T5 lesion cannot rule out metastasis Monitor Lumbar drainage for possible closure of lumbar drain today per NSG. Respiratory: Acute respiratory failure- Extubated 11/17 Continue with oxygen keep sat >92% Bronchodilators CT [id number] bilateral pleural effusions, T2 and T5 lesions cannot rule out metastatic disease Cardiovascular: Change Lopressor 12.5mg PO Q12- Monitor HR and BP Maintain MAP > 65 mmHg FEN/RENAL Acute kidney injury- resolved Neurogenic bladder with urinary retention. Hyponatremia Monitor renal function, I/O's, Electrolyte replacement per ICU protocol GI: Moderate protein energy malnutrition PPN On Po diet Seen by Dr. Hale, no GI issues identified. ID: Severe sepsis-resolved Leukocytosis-resolved Bandemia Abx per ID ( Cefazolin) monitor for signs of infections ( Fever, WBC) HEME: Metastatic Endometrial cancer s/p recent chemotherapy 10/06 Chronic anemia Monitor CBC Endocrine: Low-dose insulin sliding scale at bedside glucose every 6 hours. GI Prophylaxis Pepcid twice a day DVT Prophylaxis -- SCDs. Hold pharmacologic DVT prophylaxis defer to neurosurgery when to initiate. ACCESS: Port accessed right chest. Palliative care following Level 3 Yves Sanchez MD Nov 19, 2016 09:58
[2016-11-19] MEDS ORDERED: PILL SPLITTER OTHER PRN (10:15)
--- NOTE | 2016-11-19 17:59 | HHI.NSPN ---
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 Patient presents to the emergency room on 11/05/16 with decreasing mental status, GI symptoms, and subsequent opening of the wound with wound dehiscence and purulent drainage. 11/07/16: Patient to surgery on an urgent basis for evacuation of epidural abscess , wound debridement. Patient found to have pre-existing dural tear with CSF leakage which could not be primarily repaired. Indirect repair of dural tear with blood clot, Gelfoam, thrombin, tissue glue and reclosure of wound site. 11/08/16: Patient remains intubated, sedated, head of bed flat. Dressing dry and intact 11/09/16: Patient remains intubated. Slight amount of drainage noted from incision. Lumbar subarachnoid drain placed per interventional radiology 11/10/16: Lumbar subarachnoid drain is not functioning well. Discussed with nursing staff 11/11/16: Intermittent drainage from subarachnoid drain. Wound and dressing dry and the morning. 11/12/16: Subarachnoid drain with minimal output. Mild drainage from wound. To OR for: 1. Exploration and debridement previous L4 5 wound site. 2. Revision indirect closure right L4 5 lateral dural tear 3. Placement of lumbar subarachnoid drain, removal previous subarachnoid drain 11/13: pt intubated, POD 1 s/p replacement of lumbar drain with closure of CSF with leak with Dr. Melissa 11/14: intubated, more awake today, moving legs more. 11/15: POD # 3, patient remains intubated, opens eyes spontaneously, following commands, lumbar drain still in place, daughter reports that patient did attempt to reach for ETT yesterday with both upper extremities 11/17/16: Extubated. Sitting up in bed. Lumbar drain remains in place 11/18: Patient states she is doing good. She denies any pain. Lumbar drain still in place. 11/19: Patient states she still doing well. She denied any pain or headache. Her daughter did state that she had a terrible headache yesterday but has not complained of any today. She also stated that her mother is confused and not acting her self and at times is childish, having stuck her tongue out at the daughter. The lumbar drain remains in place. (Noah Ford) Labs, Micro, & Vital Signs Results Allergies Coded Allergies Type Severity Reaction Last Updated Verified Penicillin Allergy Severe Rash 11/06/16 Yes ///// 06:00 18:00 06:00 18: 06:00 18:00 Intake Total 1009 ml 388 ml 173 ml 90 ml 618 ml 330 ml Output Total 1160 ml 1310 ml 1078 ml 750 ml 890 ml 525 ml Balance -151 ml -922 ml -905 ml -660 ml -272 ml -195 ml Intake Oral 440 ml 240 ml IV Total 243 ml 173 ml 90 ml 178 ml 90 ml TPN/PPN 571 ml 315 ml Lipid 135 ml 73 ml Other 60 ml Output Urine Total 850 ml 1200 ml 1000 ml 750 ml 850 ml 525 ml Gastric Drainage Total 200 ml 50 ml Drainage Total 110 ml 60 ml 78 ml 40 ml # Bowel Movements 0 0 0 2 Laboratory Tests Test 11/17/16 11/18/16 11/19/16 11/19/16 03:15 03:15 05:26 06:26 White Blood Count 7.4 TH/MM3 7.5 TH/MM3 7.2 TH/MM3 Red Blood Count 2.68 MIL/MM3 2.74 MIL/MM3 2.76 MIL/MM3 Hemoglobin 8.5 GM/DL 8.7 GM/DL 9.1 GM/DL Hematocrit 24.8 % 25.7 % 26.3 % Mean Corpuscular Volume 92.7 FL 93.9 FL 95.1 FL Mean Corpuscular Hemoglobin 31.7 PG 31.7 PG 32.8 PG Mean Corpuscular Hemoglobin 34.2 % 33.8 % 34.5 % Concent Red Cell Distribution Width 14.4 % 14.1 % 14.4 % Platelet Count 284 TH/MM3 299 TH/MM3 297 TH/MM3 Mean Platelet Volume 8.9 FL 8.2 FL 8.4 FL Neutrophils (%) (Auto) 74.2 % 77.5 % 74.0 % Lymphocytes (%) (Auto) 4.6 % 3.8 % 5.3 % Monocytes (%) (Auto) 16.2 % 15.2 % 14.9 % Eosinophils (%) (Auto) 4.1 % 2.9 % 4.7 % Basophils (%) (Auto) 0.9 % 0.6 % 1.1 % Neutrophils # (Auto) 5.5 TH/MM3 5.8 TH/MM3 5.4 TH/MM3 Lymphocytes # (Auto) 0.3 TH/MM3 0.3 TH/MM3 0.4 TH/MM3 Monocytes # (Auto) 1.2 TH/MM3 1.1 TH/MM3 1.1 TH/MM3 Eosinophils # (Auto) 0.3 TH/MM3 0.2 TH/MM3 0.3 TH/MM3 Basophils # (Auto) 0.1 TH/MM3 0.0 TH/MM3 0.1 TH/MM3 CBC Comment DIFF FINAL DIFF FINAL DIFF FINAL Differential Comment Sodium Level 135 MEQ/L 136 MEQ/L 135 MEQ/L Potassium Level 3.4 MEQ/L 3.8 MEQ/L 4.1 MEQ/L Chloride Level 100 MEQ/L 103 MEQ/L 102 MEQ/L Carbon Dioxide Level 26.8 MEQ/L 26.5 MEQ/L 26.5 MEQ/L Anion Gap 8 MEQ/L 7 MEQ/L 7 MEQ/L Blood Urea Nitrogen 17 MG/DL 14 MG/DL 15 MG/DL Creatinine 0.39 MG/DL 0.38 MG/DL 0.55 MG/DL Estimat Glomerular Filtration 156 ML/MIN 161 ML/MIN 105 ML/MIN Rate Random Glucose 118 MG/DL 111 MG/DL 102 MG/DL Calcium Level 8.5 MG/DL 8.6 MG/DL 8.8 MG/DL Phosphorus Level 2.5 MG/DL Magnesium Level 1.5 MG/DL Constitutional Vital Signs Date Time Temp Pulse Resp B/P Pulse Ox O2 Delivery O2 Flow Rate FiO2 11/19/16 14:00 86 11/19/16 12:00 97.9 82 19 120/63 97 Arterial Line 11/19/16 12:00 82 11/19/16 10:00 81 11/19/16 08:00 89 11/19/16 08:00 97.6 89 22 116/56 100 4/21/17 07:00 97 Nasal Cannula 2.00 11/19/16 06:00 90 11/19/16 04:00 80 11/19/16 04:00 98.0 80 16 100/74 96 11/19/16 02:00 97 11/19/16 00:00 84 11/19/16 00:00 98.4 84 18 115/81 97 11/18/16 22:00 89 11/18/16 20:07 99 Nasal Cannula 2.00 11/18/16 20:00 90 11/18/16 20:00 98.6 98 20 126/85 96 11/18/16 19:00 96 Nasal Cannula 2.00 11/18/16 18:00 87 11/19/16 07:00 Intake Total 708 ml Output Total 1640 ml Balance -932 ml (Noah Ford) Review of Systems/Exam ROS Neuro: Denies any headache, dizziness, numbness, tingling or weakness. Resp: Denies any shortness of breath. Cardiac: Denies any chest pain or palpitations. GI: Denies any abdominal pain, N/V, or incontinence of bowel. MS: Denies any neck or back pain. Exam Resp: CTAB w/o W/R/R, equal excursion, non-laboured. CV: RRR w/o M/G/R, radial & pedal pulses 2+ bilaterally, cap refill < 2 sec. Monitor is sinus rhythm w/o any ectopy noted. GI: Abdomen soft, nontender, positive bowel sounds. MS: Extremities warm, dry & pink, without any deformity or clubbing. Neuro: Asleep but awakens to verbal stimuli, alert after that, oriented to self only, speech clear but continues to be inappropriate to some questions, follows simple commands, sensation appears to be grossly intact to all extremities to light touch, motor strength BUE & BLE 3/5. Lumbar drain with light yellow CSF draining, insertion site with dry & intact dressing, HOB at 45. (Noah Ford) Medications Current Medications Current Medications Medications (Trade) Dose Ordered Sig/Aleja Route Start Time Stop Time Status Last Admin (Tylenol Supp) 650 mg Q4H PRN RECTAL 11/05/16 18:30 11/05/16 18:30 (NS Flush) 2 ml UNSCH PRN IV FLUSH 11/06/16 12:30 11/11/16 08:31 (NS Flush) 2 ml BID IV FLUSH 11/06/16 21:00 11/19/16 08:39 (Tylenol) 650 mg Q6H PRN PO 11/06/16 12:30 11/08/16 16:01 (Zofran Inj) 4 mg Q6H PRN IV 11/06/16 12:30 (Dulcolax Supp) 10 mg DAILY PRN RECTAL 11/06/16 12:30 Miscellaneous Information 1 Q361D XX 11/06/16 12:30 (Chlorhexidine 2% Cloth) Taper DAILY@04 TOP 11/07/16 04:00 11/03/17 03:59 11/15/16 04:00 (Chlorhexidine 2% Cloth) 3 pack UNSCH PRN TOP 11/06/16 12:30 (Peridex 0.12% Liq) 15 ml BID@08,20 MT 11/07/16 08:00 11/17/16 07:53 (D50w (Vial) Inj) 25 ml UNSCH PRN IV PUSH 11/07/16 04:15 (Glucagon Inj) 1 mg UNSCH PRN OTHER 11/07/16 04:15 Insulin Aspart 1 1 Q6H SQ 11/07/16 06:00 11/19/16 17:31 Potassium Chloride 100 ml @ 50 mls/hr Q2H PRN IV-CENTRAL 11/07/16 08:45 11/07/16 23:30 Potassium Chloride 100 ml @ 50 mls/hr Q2H PRN IV 11/07/16 08:45 Potassium Chloride 100 ml @ 25 mls/hr UNSCH PRN IV-CENTRAL 11/07/16 08:45 Potassium Chloride 100 ml @ 50 mls/hr Q2H PRN IV 11/07/16 08:45 11/17/16 07:53 (Magnesium Sulfate Inj/NS Inj) 100 ml @ 50 mls/hr UNSCH PRN IV 11/07/16 08:45 Magnesium Oxide 800 mg 800 mg UNSCH PRN PO 11/07/16 08:45 11/11/16 08:31 (Magnesium Sulfate Inj/NS Inj) 100 ml @ 50 mls/hr UNSCH PRN IV 11/07/16 08:45 11/18/16 06:47 Potassium Phosphate 2000 mg 2,000 mg Q4H PRN PO 11/07/16 08:45 11/12/16 08:42 (Sodium Phosphate Inj/NS 250 ml Inj) 250 ml @ 42 mls/hr UNSCH PRN IV 11/07/16 08:45 Potassium Phosphate 2000 mg 2,000 mg UNSCH PRN PO/TUBE 11/07/16 08:45 (Potassium Phosphate Inj/NS 250 ml Inj) 260 ml @ 42 mls/hr UNSCH PRN IV 11/07/16 08:45 11/10/16 06:09 (Pepcid Inj) 20 mg Q12H IV PUSH 11/07/16 16:00 11/19/16 17:31 (Lopressor Inj) 2.5 mg Q6H PRN IV PUSH 11/08/16 14:45 11/12/16 05:08 Hydromorphone HCl 1 mg 1 mg Q2HR PRN IV PUSH 11/08/16 15:45 11/19/16 03:03 (1/2 NS 1000 ml Inj) 1,000 ml @ 0 mls/hr Q0M IV 11/09/16 09:53 11/18/16 20:46 (K-Phos) 500 mg DAILY PO 11/10/16 09:00 11/19/16 08:38 (Trandate Inj) 10 mg Q1H PRN IV 11/13/16 01:30 11/13/16 09:09 Sodium Chloride 2 gm 2 gm BID PO 11/13/16 14:00 11/19/16 08:38 (Ancef 2 Gm Premix) 50 ml @ 100 mls/hr Q8H IV 11/13/16 22:00 11/19/16 14:00 (Lopressor) 12.5 mg Q12HR PO 11/19/16 21:00 (Pill Splitter) 1 ea UNSCH PRN OTHER 11/19/16 10:15 (Noah Ford) Medical Decision Making MDM Remarks Status post repeat debridement lumbar wound dehiscence, replacement lumbar subarachnoid drain, indirect closure of CSF leak and dural tear on 11/12/16 Incision and dressing are dry this afternoon Some confusion present (Noah Ford) Plan Plan Remarks Discussed plan of care with patient & family Continue neuro checks Continue lumbar drain, plan was to clamp today if the dressing was dry, then observe over the weekend to ensure continued healing of wound prior to drain removal early next week - Dr Melissa will evaluate tomorrow and decide if to clamp the drain. Continue HOB 45 Mobilise to chair w/assistance Daily lumbar drain dressing changes (Noah Ford) Attending Statement I have personally seen and examined the patient on the date of this note. Pertinent documentation and study results have been reviewed by the undersigned. I have personally developed the treatment plan and performed medical decision making. Agree with findings, exam, and treatment plan as noted above. Continue lumbar subarachnoid drain Dressing remains dry Mobilize out of bed Mild confusion today Check CT scan head a.m. (Pratik Melissa MD) Noah Ford Nov 19, 2016 17:59 Pratik Melissa MD Nov 19, 2016 19:36
[2016-11-19] MEDS: CHLORHEXIDINE GLUCONATE 2 % 1 PACK (2 CLOTHS) TOP SCH (21:11)
[2016-11-20] VITALS (13 sets, daily range): BP systolic 101–129; BP diastolic 55–60; PULSE 86–109; RESP 12–25; TEMP 97.5–99.2; O2SAT 93–100
[2016-11-20] MEDS: RESP: ALBUTEROL 2.5 MG/IPRATROPIUM 0.5 MG NEB (SCH) NEB ×4 (03:35→19:25)
[2016-11-20] MEDS: FAMOTIDINE 20 MG/2 ML VIAL IV PUSH SCH ×2 (04:09→16:57)
[2016-11-20] MEDS: INSULIN ASPART SUPPLEMENTAL SCALE SQ SCH ×3 (04:58→17:08)
[2016-11-20] MEDS: ceFAZolin 2 GM PREMIX 50 ML IV SCH ×3 (05:01→21:59)
[2016-11-20 07:05] LABS: AUTOMATED NEUTROPHIL # 3.9 TH/MM3 (1.8-7.7); BASOPHIL # 0.1 TH/MM3 (0-0.2); BASOPHIL % 1.1 % (0.0-2.0); EOSINOPHIL # 0.2 TH/MM3 (0-0.4); EOSINOPHIL % 4.3 % (0.0-4.0); HEMATOCRIT 22.9 % (35.0-46.0); HEMO FLAGS DIFF FINAL; LYMPH % 5.4 % (9.0-44.0); LYMPHOCYTE # 0.3 TH/MM3 (1.0-4.8); MEAN CELL VOLUME 95.3 FL (80.0-100.0); MEAN CORPUSCULAR HEMOGLOBIN 31.6 PG (27.0-34.0); MEAN CORPUSCULAR HGB CONC 33.1 % (32.0-36.0); MONO % 16.8 % (0.0-8.0); NEUT % 72.4 % (16.0-70.0); PLATELET COUNT 250 TH/MM3 (150-450); RED BLOOD COUNT 2.41 MIL/MM3 (4.00-5.30); RED CELL DISTRIBUTION WIDTH 14.2 % (11.6-17.2); WHITE BLOOD COUNT 5.3 TH/MM3 (4.0-11.0)
[2016-11-20 07:43] LABS: BICARBONATE 28.3 MEQ/L (21.0-32.0); POTASSIUM 3.9 MEQ/L (3.5-5.1)
[2016-11-20] MEDS: CHLORHEXIDINE 0.12% (ORAL KIT) 15 ML CUP MT SCH ×2 (08:00→20:00)
[2016-11-20] MEDS: SODIUM CHLORIDE 0.9% FLUSH 10 ML FLUSH IV FLUSH SCH ×2 (08:26→21:58)
[2016-11-20] MEDS: SODIUM CHLORIDE 1 GRAM TAB PO SCH ×2 (08:28→21:58)
[2016-11-20] MEDS: METOPROLOL TARTRATE 25 MG TAB PO SCH ×2 (08:28→21:58)
[2016-11-20] MEDS: POTASSIUM PHOSPHATE MONOBASIC 500 MG TAB PO SCH (08:28)
--- NOTE | 2016-11-20 08:42 | HHI.CCPN ---
Subjective Remarks/Hospital Course This 86 year-old woman who presents to the emergency department complaining of nausea vomiting, low back pain, and chills on 11/05/2016. She has a history of metastatic endometrial cancer diagnosed 5 years ago initially, as well as chronic back pain. The chronic back pain preceded the malignancy. Most recent PET scan as reported by daughter revealed multiple bony metastasis to include skull, and right upper arm. She underwent an L4-L5 lamine[facility] about [facility] weeks ago [facility] . Prior to her surgery , the patient was extremely physically active without any ambulation difficulties.She was doing well initially but over the past several days complained of increased nausea vomiting, increased low back pain, and chills. Upon admission incision has not had any drainage or bleeding,and she denied any urinary symptoms. The patient was admitted to [facility] on 11/05/2016, she subsequently has begun to have leukocytosis, urinary retention and noted drainage from lumbar laminectomy surgical site. Lumbar CT scan revealed postop laminectomy L4 with fluid and scattered bubbles possibly resolving hematoma, abscess could not be excluded. ID and Neurosurgery was consulted.Critical care medicine is consult that for patients noted sepsis, and progressive weakness bilateral lower extremities. Subjective: 11/07 Seen upon return from the OR following lumbar wound debridement and evacuation of epidural abscess by Dr. Melissa. Patient is to remain intubated per Dr. Melissa as she must be maintained with HOB flat due to dural leak (but rotate side to side q2 hours). At present she is not on continuous sedation, but is unresponsive to deep noxious stimuli upon return from general anesthesia. Reportedly large amount of respiratory secretions noted upon intubation by anesthesia. Routine airway per documentation. She received 1800 crystalloid intraoperatively. EBL 20 ml. 11/08: Afebrile. Patient remains on propofol infusion, moving bilateral upper and lower extremities wiggling toes and moving upper extremities. The patient was inadvertently placed on fentanyl infusion last night for purported pain. Fentanyl infusion discontinued, patient on when necessary pain medicine now currently following commands and denies pain. Leukocytosis resolved, the patient continues on Flagyl, Vancomycin and Ceptazidime per ID Dr. Nina. The patient remains flat in bed, supine position in order to begin nutrition PPN was initiated this a.m.. Extensive discussion with Dr. Melissa and Dr. Nina and palliative care consulted with planned discussion with family today. 11/09: Leukocytosis resolved. Wound culture was noted staph aureus. Patient was noted to have hypophosphatemia and hypomagnesemia ischemia which are being currently replaced. PPN was initiated for nutritional support secondary to put required positioning. Palliative care was consulted to discuss goals of care, currently aggressive treatment management continued per family request. 11/10: Afebrile .No acute events overnight. Patient underwent placement of CSF drain yesterday by interventional radiology. Patient's head of the bed to remain flat until Tuesday. The patient continues to have low phosphate and was placed on scheduled doses of phosphorus yesterday. Family requesting medication administration of vitamin C secondary to a small non-scientific research study that was published recently. Explained to family that it wasn't in evidence-based full research study performed but a small study without any level of evidence for implementation in the [place] at this time. Vitamin C is not indicated at this time. The family was educated by neurosurgery that the patient may have to possibly have surgery. 11/11 Tmax 99.0. The patient's CSF lumbar drain reevaluated by Dr. Melissa last evening, now draining fluid. No further drainage from surgical site. The patient remains in a supine position, PPN infusing for nutritional support. Her electrolytes continually being replaced per protocol. The patient remains on low-dose propofol infusion. Patient responsive following commands. 11/12: Patient was noted not to be moving upper extremities on command. Patient off sedation greater than 24 hours. MRI obtained today. Patient will return to surgery with Dr. Melissa. Lumbar drain dressing dry, with CSF draining. 11/13: The patient returned to neurosurgery yesterday, new lumbar drain placed. Minimal movement of bilateral upper extremities noted this a.m.. Patient moving hands minimally lifting arms, wiggling fingers and toes. 11/14:Afebrile: No acute changes overnight. Patient responsive to family, follows commands. The patient continues to be in supine position only to be log rolled secondary. Lumbar drain patent. 11/15 Patient remains intubated. On no sedation awake. Afebrile. Patient is in supine position lumbar drain in place. 11/16 No acute events overnight. Awake on ACV with PEEP:5 and FIO2 35%. On no sedation. 11/17 Patient is sedated with Diprivan and intubated. Afebrile. 11/18 Patient s/p extubation yesterday. Awake and alert. Afebrile. Lumbar drain still in place. 11/19 Patient is awake and alert lying in bed in NAD. Afebrile. Plan for possible closure of lumbar drain today per NSG. 11/20 No acute events overnight. Patient is lying in be din NAD. Objective Vital Signs Date Time Temp Pulse Resp B/P Pulse Ox O2 Delivery O2 Flow Rate FiO2 11/20/16 06:00 93 11/20/16 04:00 98.1 23 111/56 98 11/19/16 19:30 Nasal Cannula 2.00 11/17/16 12:00 30 Intake and Output 11/19/16 11/19/16 11/20/16 08:00 16:00 00:00 Intake Total 298 ml 330 ml 296 ml Output Total 420 ml 525 ml 500 ml Balance -122 ml -195 ml -204 ml Result Diagram: 11/20/16 0600 11/20/16 0600 Other Results Laboratory Tests Test 11/20/16 06:00 White Blood Count 5.3 TH/MM3 Red Blood Count 2.41 MIL/MM3 Hemoglobin 7.6 GM/DL Hematocrit 22.9 % Mean Corpuscular Volume 95.3 FL Mean Corpuscular Hemoglobin 31.6 PG Mean Corpuscular Hemoglobin 33.1 % Concent Red Cell Distribution Width 14.2 % Platelet Count 250 TH/MM3 Mean Platelet Volume 8.6 FL Neutrophils (%) (Auto) 72.4 % Lymphocytes (%) (Auto) 5.4 % Monocytes (%) (Auto) 16.8 % Eosinophils (%) (Auto) 4.3 % Basophils (%) (Auto) 1.1 % Neutrophils # (Auto) 3.9 TH/MM3 Lymphocytes # (Auto) 0.3 TH/MM3 Monocytes # (Auto) 0.9 TH/MM3 Eosinophils # (Auto) 0.2 TH/MM3 Basophils # (Auto) 0.1 TH/MM3 CBC Comment DIFF FINAL Differential Comment Sodium Level 137 MEQ/L Potassium Level 3.9 MEQ/L Chloride Level 102 MEQ/L Carbon Dioxide Level 28.3 MEQ/L Anion Gap 7 MEQ/L Blood Urea Nitrogen 16 MG/DL Creatinine 0.44 MG/DL Estimat Glomerular Filtration 136 ML/MIN Rate Random Glucose 113 MG/DL Calcium Level 7.9 MG/DL Imaging Last Impressions Chest X-Ray 11/15/16 0600 Signed Impressions: Service Date/Time: Tuesday, November 15, 2016 04:15 - CONCLUSION: Tubes and catheters are in good position. Mild pulmonary vascular congestion persists Jimi Schrader MD Thoracic Spine MRI 11/12/16 0000 Signed Impressions: Service Date/Time: Saturday, November 12, 2016 11:46 - CONCLUSION: 1. Degenerative changes but no canal or foraminal narrowing. 2. No evidence for abscess. 3. T5 and T2 vertebral body lesions are noted. Metastatic deposits are not excluded. 4. Extensive subcutaneous edema of the upper thorax and cervical region. 5. Large bilateral pleural effusions. Jesús Anderson MD Lumbar Spine X-Ray 11/12/16 0000 Signed Impressions: Service Date/Time: Saturday, November 12, 2016 21:53 - CONCLUSION: 1. Postsurgical changes as above. Reed George MD Lumbar Spine MRI 11/12/16 0000 Signed Impressions: Service Date/Time: Saturday, November 12, 2016 11:46 - CONCLUSION: 1. Complex fluid collection appears slightly increased in sagittal dimension with rim enhancement and marked surrounding edema and enhancement of the paraspinal soft tissues. This is consistent with the clinical history of abscess. 2. There is severe associated spinal stenosis secondary to mass effect from the fluid collection. Jesús Anderson MD Cervical Spine MRI 11/12/16 0000 Signed Impressions: Service Date/Time: Saturday, November 12, 2016 11:46 - CONCLUSION: 1. No evidence for abscess. 2. Nonspecific enhancing lesion of the T2 vertebral body, as well as diffuse decreased T1 signal involving the C7 pedicle and transverse process. The possibility of metastatic disease should be excluded. 3. Severe canal stenosis with cord compression at C5-6 and moderate canal stenosis at C4-5. Jesús Anderson MD ADDENDUM: There is extensive subcutaneous edema of the cervical and upper thoracic subcutaneous tissues posteriorly. Jesús Anderson MD Brain MRI 11/12/16 0000 Signed Impressions: Service Date/Time: Saturday, November 12, 2016 11:46 - CONCLUSION: 1. There are no findings to indicate acute infarct. 2. Abnormal signal layering within the occipital horns bilaterally likely representing a small amount of blood products. This finding is new compared to the prior CT. 3. Chronic changes include generalized atrophy and periventricular white matter change characteristic of chronic microvascular ischemia. Naveed Smith MD Lumbar Puncture Fluoroscopy 11/09/16 0000 Signed Impressions: Service Date/Time: Wednesday, November 09, 2016 16:21 - CONCLUSION: Uncomplicated lumbar drain placement as above. Naveed Rosenthal MD Entire Spine MRI 11/06/16 0000 Signed Impressions: Service Date/Time: Sunday, November 06, 2016 14:28 - CONCLUSION: 1. As noted on the MRI lumbar spine there is a complex fluid collection in the soft tissues posterior to the spinal canal at the level of L4 measuring 3.4 x 3.1 x 3.9 cm suggestive of a postoperative hematoma/seroma. An abscess cannot be excluded. 2. Abnormal signal in the body of T2 suspicious for bony metastatic disease. 3. Status post fusion of C6-7. 4. Broad-based bulging with disc osteophyte complexes at C4-5 and C5-6. Possible myelopathy in the cord at this level. Patrick Chavez MD Lumbar Spine CT 11/05/16 0000 Signed Impressions: Service Date/Time: Saturday, November 05, 2016 04:14 - CONCLUSION: 1. Postop laminectomy at L4 level with fluid within the operative bed and a few scattered gas bubbles may be postsurgical change and possibly resolving hematoma, however abscess is not excluded. No definite signs of osteomyelitis. 2. Neural foramina compromise left L2-L3, bilateral L4-L5. 3. Bilateral masses compromise L5-S1. 4. Residual slight thecal sac stenosis may be present at L3-4 and L4-5. Deangelo Monsivais MD Head CT 11/05/16 0000 Signed Impressions: Service Date/Time: Saturday, November 05, 2016 16:08 - CONCLUSION: 1. No acute intracranial abnormality. Hussain Sandoval MD Abdomen/Pelvis CT 11/05/16 0000 Signed Impressions: Service Date/Time: Saturday, November 05, 2016 16:12 - CONCLUSION: 1. There is residual IV contrast within the kidneys and bladder. 2. There are no findings to indicate a bowel obstruction. 3. The patient is post hysterectomy. Hussain Sandoval MD Objective Remarks GENERAL: Patient is lying in bed in NAD SKIN: Warm and dry. HEAD: Normocephalic. EYES: No scleral icterus. No injection or drainage. NECK: Supple, trachea midline. No JVD or lymphadenopathy. CARDIOVASCULAR: Tachycardic ,nl S1, S2, 2/6 systolic murmur left sternal border RESPIRATORY: Breath sounds equal bilaterally. No accessory muscle use. GASTROINTESTINAL: Abdomen soft, non-tender, nondistended. MUSCULOSKELETAL: No cyanosis, + edema. BACK: Nontender without obvious deformity. No CVA tenderness. Neuro: Awake and alert A/P Assessment and Plan Plan by systems: Neurologic: Metabolic encephalopathy secondary to sepsis- resolved Lumbar epidural abscess Status post lumbar wound debridement and drainage epidural abscess 11/07/16 (Dr. Melissa) S/P exploration, irrigation and replacement of lumbar drain 11/12/16 (Dr. Melissa) Patein for CT brain per NSG today. Monitor Lumbar drainage. Neurochecks every 2 hour per ICU protocol 11/05 CT lumbar spine-postop laminectomy L4 with fluid and scattered bubbles possibly resolving hematoma. Abscess cannot be excluded. Neural foraminotomy not compromise left L2-3, L4-L5, residual thecal sac stenosis may be present L3 L4, L4-L5,B/L mass compromise L5-S1. MRI -post surgical changes with hematoma/seroma ? Abscess L3/L4 and L4/L5. 11/07-postop CSF leak, spinal epidural abscess, postoperative wound dehiscence, pre-existing dural tear with repair, status post debridement lumbar wound dehiscence, evacuation of lumbar abscess indirect repair of pre-existing dural tear Reportedly persistent dural leak noted intraoperatively. Patient is to remain head of bed down/supine per Dr. Melissa. EEG 11/06/16moderately slow background consistent with encephalopathy. No epileptiform features. Neurology following, Dr. Thomson NSG following, Dr. Melissa 11/09 IR CSF drain L1-L2 11/12 CT lumbar spine L3-4, L4-5 mass effect. 11/12 Replacement of lumbar drain and evaluation in OR 11/12 CT [id number] cervical moderate left foraminal stenosis, C3-C4 severe left foraminal stenosis, C4-C5 mild bilateral foraminal stenosis mild abutment of ordered, C5-C6 mild cord compression 11/12 CT thoracic-T2 and T5 lesion cannot rule out metastasis Respiratory: Acute respiratory failure- Extubated 11/17 Continue with oxygen keep sat >92% Bronchodilators CT [id number] bilateral pleural effusions, T2 and T5 lesions cannot rule out metastatic disease Cardiovascular: On Lopressor 12.5mg PO Q12- Monitor HR and BP Maintain MAP > 65 mmHg FEN/RENAL Acute kidney injury- resolved Neurogenic bladder with urinary retention. Hyponatremia Monitor renal function, I/O's, Electrolyte replacement per ICU protocol GI: Moderate protein energy malnutrition PPN On Po diet Seen by Dr. Hale, no GI issues identified. ID: Severe sepsis-resolved Leukocytosis-resolved Bandemia Abx per ID ( Cefazolin) monitor for signs of infections ( Fever, WBC) HEME: Metastatic Endometrial cancer s/p recent chemotherapy 10/06 Chronic anemia Monitor CBC Endocrine: Low-dose insulin sliding scale at bedside glucose every 6 hours. GI Prophylaxis Pepcid twice a day DVT Prophylaxis -- SCDs. Hold pharmacologic DVT prophylaxis defer to neurosurgery when to initiate. ACCESS: Port accessed right chest. Palliative care following Level 3 Yves Sanchez MD Nov 20, 2016 08:42
--- NOTE | 2016-11-20 09:28 | RADRPT ---
EXAM DATE/TIME: 11/20/2016 08:56 [place] COMPARISON: MRI BRAIN W/O CONTRAST, November 12, 2016, 11:46. CT BRAIN W/O CONTRAST, November 05, 2016, 16:08. INDICATIONS : Altered mental status. RADIATION DOSE: 51.22 CTDIvol (mGy) MEDICAL HISTORY : Carcinoma, not otherwise specified. Chemotherapy. SURGICAL HISTORY : Cervical fusion. ENCOUNTER: Initial ACUITY: 1 day PAIN SCALE: 0/10 LOCATION: cranial TECHNIQUE: Multiple contiguous axial images were obtained of the head. Using automated exposure control and adj ustment of the mA and/or kV according to patient size, radiation dose was kept as low as reasonably a chievable to obtain optimal diagnostic quality images. FINDINGS: CEREBRUM: The ventricles are normal for age. There are small focal areas of increased density within the occip ital horns of the lateral ventricles bilaterally likely secondary to small areas of hemorrhage. This finding was present on the prior MRI examination from 11/12/2016. There is a thin 4 mm area of low den sity adjacent to the right parietal lobe which most closely resembles a chronic subdural hemorrhage/f luid collection however this is not clearly seen on the prior MRI examination. Significant mass effec t is not seen. A more acute subdural hemorrhage could have this appearance if the patient is anemic. No areas of significant mass effect or infarction are seen on the CT examination. POSTERIOR FOSSA: The cerebellum and brainstem are intact. The 4th ventricle is midline. The cerebellopontine angle i s unremarkable. EXTRACRANIAL: The visualized portion of the orbits is intact. SKULL: The calvaria is intact. No evidence of skull fracture. CONCLUSION: 1. Suspected small persistent foci of hemorrhage in the lateral ventricles. 2. 4 mm subdural collection over the right parietal lobe. Some chronic subdural fluid or more acute m ild subdural hemorrhage in an anemic patient could have this appearance. This finding is not clearly demonstrated on the prior MRI examination. Significant mass effect is not seen. Naveed Michael MD on November 20, 2016 at 9:16 Board Certified Radiologist. This report was verified electronically.
[2016-11-20 13:16] LABS: HEMATOCRIT 24.7 % (35.0-46.0); REVIEW FLAG FINAL
--- NOTE | 2016-11-20 17:05 | HHI.PR ---
Subjective Remarks pt remains in icu resting quietly family present Objective Vital Signs Date Time Temp Pulse Resp B/P Pulse Ox O2 Delivery O2 Flow Rate FiO2 11/20/16 12:00 96 11/20/16 12:00 99.2 96 24 117/55 99 11/20/16 10:00 96 Nasal Cannula 2.00 11/20/16 10:00 96 11/20/16 08:00 86 11/20/16 08:00 100 Nasal Cannula 2.00 11/20/16 08:00 97.5 86 18 101/55 100 11/20/16 06:00 93 11/20/16 04:00 98 11/20/16 04:00 98.1 98 23 111/56 98 11/20/16 02:00 89 11/20/16 00:00 98.6 88 22 113/59 98 11/20/16 00:00 88 11/19/16 22:00 90 11/19/16 20:00 94 11/19/16 20:00 98.1 94 17 121/58 97 11/19/16 19:30 99 Nasal Cannula 2.00 11/19/16 19:00 97 Nasal Cannula 2.00 11/19/16 18:00 89 I/O 11/19/16 11/19/16 11/19/16 11/20/16 11/20/16 11/20/16 07:00 15:00 23:00 07:00 15:00 23:00 Intake Total 298 ml 330 ml 296 ml 99 ml 440 ml Output Total 420 ml 525 ml 500 ml 320 ml 330 ml Balance -122 ml -195 ml -204 ml -221 ml 110 ml Intake Oral 200 ml 240 ml 200 ml 240 ml IV Total 98 ml 90 ml 96 ml 99 ml 200 ml Output Urine Total 400 ml 525 ml 350 ml 300 ml 300 ml Drainage Total 20 ml 150 ml 20 ml 30 ml # Bowel Movements 2 1 Result Diagram: 11/20/16 1300 11/20/16599 Imaging Last [address] 11/20/16599 Signed Impressions: Service Date/Time: Sunday, November 20, 2016 08:56 - CONCLUSION: 1. Suspected small persistent foci of hemorrhage in the lateral ventricles. 2. 4 mm subdural collection over the right parietal lobe. Some chronic subdural fluid or more acute mild subdural hemorrhage in an anemic patient could have this appearance. This finding is not clearly demonstrated on the prior MRI examination. Significant mass effect is not seen. Naveed Michael MD Procedures replacement of CSF drain and dural patch 11/12 evacuation of epidural abscess 11/07 had laminectomy 2 weeks ago Objective Remarks CONSTITUTIONAL/GENERAL: This is an adequately nourished patient, in no apparent distress TUBES/LINES/DRAINS: SKIN: No jaundice, rashes, or lesions. Skin temperature appropriate. Not diaphoretic. HEAD: Atraumatic. Normocephalic. EYES: follows me . Fundi not examined. ENT: Nose without bleeding or purulent drainage. Throat without visible erythema, exudates, masses, or lesions intubated on vent. NECK: Trachea midline. Supple, nontender. No palpable thyroid enlargement or nodularity. CARDIOVASCULAR: Regular rate and rhythm without murmurs, gallops, or rubs. No JVD. Peripheral pulses symmetric RESPIRATORY/CHEST: Symmetric, unlabored respirations. Clear to auscultation. Breath sounds equal bilaterally. No wheezes, rales, or rhonchi. GASTROINTESTINAL: Abdomen soft, some tenderness nausea resolved nondistended. No hepato-splenomegaly, or palpable masses. No guarding. Bowel sounds present. GENITOURINARY: Without palpable bladder distension. Jean-Baptiste catheter in place. MUSCULOSKELETAL: Extremities without clubbing, cyanosis, or edema. No joint tenderness or effusion noted. No calf tenderness. No mottling or clubbing.lumbar wound with drainage LYMPHATICS: No palpable cervical or supraclavicular adenopathy.mild edema present NEUROLOGICAL: sedated Motor and sensory grossly within normal limits. Follows commands. Moves all extremities. cfs drain in place currently clamped PSYCHIATRIC: No obvious anxiety/depression. Medications and IVs Last [address] 11/20/16 0600 Signed Impressions: Service Date/Time: Sunday, November 20, 2016 08:56 - CONCLUSION: 1. Suspected small persistent foci of hemorrhage in the lateral ventricles. 2. 4 mm subdural collection over the right parietal lobe. Some chronic subdural fluid or more acute mild subdural hemorrhage in an anemic patient could have this appearance. This finding is not clearly demonstrated on the prior MRI examination. Significant mass effect is not seen. Naveed Michael MD Assessment and Plan Problem List: (1) Nausea & vomiting Status: Resolved (2) Weakness Status: Acute (3) Leukocytosis Status: Resolved Plan: surgical site debrided wbc improved hr and temp controlled blood cultures show gram pos cocci further id pending (4) Hypokalemia Status: Resolved Plan: on potassium replacement protocall (5) Dural tear Status: Acute Plan: treated surgically with blood and dural patch drain in place Assessment and Plan pt progressing slowly csf drain working vss responsive Discussed Condition With family MireilleNestor Guillermina SIMON Nov 20, 2016 17:05
--- NOTE | 2016-11-20 17:36 | HHI.NSPN ---
History Chief Complaint: intubated and sedated Interval History 86-year-old female with history of lumbar laminectomy approximately 2 weeks ago in [place]. Patient presents to the emergency room on 11/05/16 with decreasing mental status, GI symptoms, and subsequent opening of the wound with wound dehiscence and purulent drainage. 11/07/16: Patient to surgery on an urgent basis for evacuation of epidural abscess , wound debridement. Patient found to have pre-existing dural tear with CSF leakage which could not be primarily repaired. Indirect repair of dural tear with blood clot, Gelfoam, thrombin, tissue glue and reclosure of wound site. 11/08/16: Patient remains intubated, sedated, head of bed flat. Dressing dry and intact 11/09/16: Patient remains intubated. Slight amount of drainage noted from incision. Lumbar subarachnoid drain placed per interventional radiology 11/10/16: Lumbar subarachnoid drain is not functioning well. Discussed with nursing staff 11/11/16: Intermittent drainage from subarachnoid drain. Wound and dressing dry in the morning. 11/12/16: Subarachnoid drain with minimal output. Mild drainage from wound. Return to operating room for replacement subarachnoid drain, wound debridement, repeat closure of CSF leak 11/17/16: Extubated. Sitting up in bed. Lumbar drain remains in place 11/20/16: CT scan was small right parieto-occipital subdural effusion without significant mass effect. Dressing dry. Drain closed the reservoir Exam Results Vital Signs Date Time Temp Pulse Resp B/P Pulse Ox O2 Delivery O2 Flow Rate FiO2 11/20/16 16:00 101 11/20/16 16:00 99.2 25 125/59 98 11/20/16 10:00 Nasal Cannula 2.00 11/17/16 12:00 30 Intake and Output 11/19/16 11/19/16 11/20/16 08:00 16:00 00:00 Intake Total 298 ml 330 ml 296 ml Output Total 420 ml 525 ml 500 ml Balance -122 ml -195 ml -204 ml Physical Examination Resp: CTAB w/o W/R/R, equal excursion, non-laboured. CV: RRR w/o M/G/R, radial & pedal pulses 2+ bilaterally, cap refill < 2 sec. Monitor is sinus rhythm w/o any ectopy noted. GI: Abdomen soft, nontender, positive bowel sounds. MS: Extremities warm, dry & pink, without any deformity or clubbing. Neuro: Alert. Follows commands and answers questions well. Speech clear. Still mild confusion but improving. Able to tell her family the monthly bills and amount she has to pay. sensation appears to be grossly intact to all extremities to light touch, motor strength BUE & BLE /. Lumbar drain with light yellow CSF draining, insertion site with dry & intact dressing, HOB at 45. Dressing dry. Incision intact. Lab, Micro, Other Results 11/20/16 CT scan head images reviewed. Small right parieto-occipital subdural effusion without significant mass effect. Small amount of blood posterior horn left greater than right lateral ventricle Head CT 11/20/16 0600 Signed Impressions: Service Date/Time: Sunday, November 20, 2016 08:56 - CONCLUSION: 1. Suspected small persistent foci of hemorrhage in the lateral ventricles. 2. 4 mm subdural collection over the right parietal lobe. Some chronic subdural fluid or more acute mild subdural hemorrhage in an anemic patient could have this appearance. This finding is not clearly demonstrated on the prior MRI examination. Significant mass effect is not seen. Naveed Michael MD Laboratory Tests Test 11/20/16 11/20/16 06:00 13:00 White Blood Count 5.3 TH/MM3 Red Blood Count 2.41 MIL/MM3 Hemoglobin 7.6 GM/DL 8.3 GM/DL Hematocrit 22.9 % 24.7 % Mean Corpuscular Volume 95.3 FL Mean Corpuscular Hemoglobin 31.6 PG Mean Corpuscular Hemoglobin 33.1 % Concent Red Cell Distribution Width 14.2 % Platelet Count 250 TH/MM3 Mean Platelet Volume 8.6 FL Neutrophils (%) (Auto) 72.4 % Lymphocytes (%) (Auto) 5.4 % Monocytes (%) (Auto) 16.8 % Eosinophils (%) (Auto) 4.3 % Basophils (%) (Auto) 1.1 % Neutrophils # (Auto) 3.9 TH/MM3 Lymphocytes # (Auto) 0.3 TH/MM3 Monocytes # (Auto) 0.9 TH/MM3 Eosinophils # (Auto) 0.2 TH/MM3 Basophils # (Auto) 0.1 TH/MM3 CBC Comment DIFF FINAL Differential Comment Sodium Level 137 MEQ/L Potassium Level 3.9 MEQ/L Chloride Level 102 MEQ/L Carbon Dioxide Level 28.3 MEQ/L Anion Gap 7 MEQ/L Blood Urea Nitrogen 16 MG/DL Creatinine 0.44 MG/DL Estimat Glomerular Filtration 136 ML/MIN Rate Random Glucose 113 MG/DL Calcium Level 7.9 MG/DL Medical Decision Making Impression and Plan Impression: Status post repeat debridement lumbar wound dehiscence, replacement lumbar subarachnoid drain, indirect closure of CSF leak and dural tear. 11/12/16 Incision and dressing are dry this morning Small right parieto-occipital subdural effusion on CT scan had 11/20/16 Plan: lumbar subarachnoid drain close to reservoir Continue to mobilize out of bed and chair. Continue to monitor incision with drain close. Possible discontinuation of subarachnoid drain on 11/22/16 depending on her clinical course Discussed with family in [place] Pr[place]ik Melissa MD Nov 20, 2016 17:36
[2016-11-20] MEDS: ONDANSETRON HCL 4 MG/2 ML VIAL IV PRN (22:18)
[2016-11-21] VITALS (14 sets, daily range): BP systolic 120–136; BP diastolic 57–76; PULSE 74–92; RESP 15–24; TEMP 97.8–99.2; O2SAT 92–97
[2016-11-21] MEDS: FAMOTIDINE 20 MG/2 ML VIAL IV PUSH SCH ×2 (04:01→16:52)
[2016-11-21] MEDS: CHLORHEXIDINE GLUCONATE 2 % 1 PACK (2 CLOTHS) TOP SCH (04:02)
[2016-11-21] MEDS: ceFAZolin 2 GM PREMIX 50 ML IV SCH ×3 (04:02→20:47)
[2016-11-21] MEDS: RESP: ALBUTEROL 2.5 MG/IPRATROPIUM 0.5 MG NEB (SCH) NEB ×2 (04:33→10:05)
[2016-11-21 04:39] LABS: BASOPHIL # 0.1 TH/MM3 (0-0.2); EOSINOPHIL # 0.2 TH/MM3 (0-0.4); EOSINOPHIL % 4.3 % (0.0-4.0); HEMATOCRIT 22.5 % (35.0-46.0); HEMO FLAGS DIFF FINAL; LYMPH % 6.6 % (9.0-44.0); LYMPHOCYTE # 0.4 TH/MM3 (1.0-4.8); MEAN CORPUSCULAR HGB CONC 33.6 % (32.0-36.0); MONO % 17.5 % (0.0-8.0); NEUT % 70.6 % (16.0-70.0); PLATELET COUNT 236 TH/MM3 (150-450); RED BLOOD COUNT 2.37 MIL/MM3 (4.00-5.30); RED CELL DISTRIBUTION WIDTH 14.1 % (11.6-17.2); WHITE BLOOD COUNT 5.6 TH/MM3 (4.0-11.0)
[2016-11-21 04:46] LABS: BICARBONATE 27.1 MEQ/L (21.0-32.0)
[2016-11-21] MEDS: INSULIN ASPART SUPPLEMENTAL SCALE SQ SCH ×4 (06:00→17:25)
[2016-11-21] MEDS: CHLORHEXIDINE 0.12% (ORAL KIT) 15 ML CUP MT SCH ×2 (08:00→20:00)
[2016-11-21] MEDS: METOPROLOL TARTRATE 25 MG TAB PO SCH ×2 (08:19→20:48)
[2016-11-21] MEDS: SODIUM CHLORIDE 0.9% FLUSH 10 ML FLUSH IV FLUSH SCH ×2 (08:19→20:48)
[2016-11-21] MEDS: SODIUM CHLORIDE 1 GRAM TAB PO SCH ×2 (08:20→20:48)
[2016-11-21] MEDS: POTASSIUM PHOSPHATE MONOBASIC 500 MG TAB PO SCH (08:20)
--- NOTE | 2016-11-21 10:01 | HHI.PR ---
Subjective Remarks pt remains in icu resting quietly WAS UP IN CHAIR WITH PT TODAY NOW ASLEEP WILL NEED TO GO TO [facility] ONCE MEDICALLY TABLE Objective Vital Signs Date Time Temp Pulse Resp B/P Pulse Ox O2 Delivery O2 Flow Rate FiO2 11/21/16 08:00 91 11/21/16 08:00 Nasal Cannula 1.00 30 11/21/16 08:00 98.2 91 15 136/66 95 11/21/16 06:00 89 11/21/16 04:00 98.8 92 16 132/76 92 11/21/16 04:00 92 11/21/16 04:00 92 Nasal Cannula 2.00 11/21/16 02:00 88 11/21/16 00:00 99.2 89 24 126/62 94 11/21/16 00:00 92 11/20/16 23:00 94 Room Air 11/20/16 22:00 104 11/20/16 22:00 95 Nasal Cannula 2.00 11/20/16 20:00 105 11/20/16 20:00 98.1 109 12 129/60 93 11/20/16 19:25 95 11/20/16 19:00 93 Nasal Cannula 3.00 11/20/16 18:00 100 11/20/16 16:00 101 11/20/16 16:00 99.2 101 25 125/59 98 11/20/16 14:00 96 11/20/16 12:00 96 11/20/16 12:00 99.2 96 24 117/55 99 11/20/16 10:00 96 Nasal Cannula 2.00 11/20/16 10:00 96 I/O 11/20/16 11/20/16 11/20/16 11/21/16 11/21/16 11/21/16 07:00 15:00 23:00 07:00 15:00 23:00 Intake Total 99 ml 440 ml 280 ml 220 ml Output Total 320 ml 330 ml 200 ml 300 ml Balance -221 ml 110 ml 80 ml -80 ml Intake Oral 240 ml 150 ml 100 ml IV Total 99 ml 200 ml 130 ml 120 ml Output Urine Total 300 ml 300 ml 200 ml 250 ml Emesis 50 ml Drainage Total 20 ml 30 ml # Bowel Movements 1 Result Diagram: 11/21/1631111/21/16311 Procedures replacement of CSF drain and dural patch 11/12 evacuation of epidural abscess 11/07 had laminectomy 2 weeks ago Objective Remarks CONSTITUTIONAL/GENERAL: This is an adequately nourished patient, in no apparent distress TUBES/LINES/DRAINS: SKIN: No jaundice, rashes, or lesions. Skin temperature appropriate. Not diaphoretic. HEAD: Atraumatic. Normocephalic. EYES: follows me . Fundi not examined. ENT: Nose without bleeding or purulent drainage. Throat without visible erythema, exudates, masses, or lesions intubated on vent. NECK: Trachea midline. Supple, nontender. No palpable thyroid enlargement or nodularity. CARDIOVASCULAR: Regular rate and rhythm without murmurs, gallops, or rubs. No JVD. Peripheral pulses symmetric RESPIRATORY/CHEST: Symmetric, unlabored respirations. Clear to auscultation. Breath sounds equal bilaterally. No wheezes, rales, or rhonchi. GASTROINTESTINAL: Abdomen soft, some tenderness nausea resolved nondistended. No hepato-splenomegaly, or palpable masses. No guarding. Bowel sounds present. GENITOURINARY: Without palpable bladder distension. Jean-Baptiste catheter in place. MUSCULOSKELETAL: Extremities without clubbing, cyanosis, or edema. No joint tenderness or effusion noted. No calf tenderness. No mottling or clubbing.lumbar wound with drainage LYMPHATICS: No palpable cervical or supraclavicular adenopathy.mild edema present NEUROLOGICAL: sedated Motor and sensory grossly within normal limits. Follows commands. Moves all extremities. cfs drain in place currently clamped PSYCHIATRIC: No obvious anxiety/depression. Medications and IVs Inpatient Medications Acetaminophen (Tylenol) 650 mg Q6H PRN PO PAIN 1-6 AND/OR FEVER >101F Last administered on 11/08/16 16:01; Start 11/06/16 at 12:30 Acetaminophen 650 mg 650 mg Q4H PRN RECTAL FEVER > 101 Last administered on 11/05 18:30; Start 11/05/16 at 18:30 Albuterol/ Ipratropium (Duoneb Neb) 1 ampule Q2HR NEB PRN NEB SHORTNESS OF BREATH; Start 11/17/16 at 15:45 Aztreonam 1000 mg/ Sodium Chloride 100 ml @ 200 mls/hr Q12H IV Last administered on 11/06/16 05:24; Start 11/05/16 at 18:00; Stop 11/06/16 at 12:26; Status DC Bisacodyl (Dulcolax Supp) 10 mg DAILY PRN RECTAL CONSTIPATION; Start 11/06/16 at 12:30 Cefazolin Sodium 2000 mg/Sodium Chloride 100 ml @ 200 mls/hr Q8HR IV Last administered on 11/13/16 15:12; Start 11/09/16 at 22:00; Stop 11/13/16 at 23:09 ; Status DC Cefazolin Sodium/ Dextrose (Ancef 2 Gm Premix) 50 ml @ 100 mls/hr Q8H IV Last administered on 11/21/16 04:02; Start 11/13/16 at 22:00 Cefepime HCl/ Sodium Chloride (Maxipime Inj/NS Inj) 100 ml @ 200 mls/hr ONCE ONCE IV Last administered on 11/05/16 03:36; Start 11/05/16 at 03:15; Stop at 03:44; Status DC Ceftazidime 2000 mg/Sodium Chloride 100 ml @ 200 mls/hr Q8H IV Last administered on 11/09/16 14:00; Start 11/06/16 at 14:00; Stop 11/09/16 at 21:17 ; Status DC Chlorhexidine Gluconate (Chlorhexidine 2% Cloth) Taper DAILY@04 TOP Last administered on 11/21/16 04:02; Start 11/07/16 at 04:00; Stop 11/03/17 at 03:59 Chlorhexidine Gluconate (Peridex 0.12% Liq) 15 ml BID@08,20 MT Last administered on 11/17/16 07:53; Start 11/07/16 at 08:00 Chlorhexidine Gluconate 3 pack 3 pack UNSCH PRN TOP HYGIENIC CARE; Start at 12:30 Dextrose (D50w (Vial) Inj) 25 ml UNSCH PRN IV PUSH HYPOGLYCEMIA-SEE COMMENTS; Start 11/07/16 at 04:15 Diatrizoate Meglum/ Diatrizoate Sod ( Gastroview Liq) 18 ml ONCE ONCE PO Last administered on 11/05/16 12:33; Start 11/05/16 at 11:49; Stop 11/05/16 at 11: 57; Status DC Famotidine (Pepcid Inj) 10 mg Q12H IV PUSH Last administered on 11/07/16 04:22 ; Start 11/06/16 at 16:00; Stop 11/07/16 at 15:36; Status DC Famotidine 20 mg 20 mg Q12H IV PUSH Last administered on 11/21/16 04:01; Start 11/07/16 at 16:00 Fat Emulsion Intravenous (Liposyn Iii 20% Inj) 250 ml @ 10 mls/hr Q24H IV Last administered on 11/16/16 19:42; Start 11/08/16 at 20:00; Stop 11/17/16 at 16:56; Status DC Fentanyl Citrate 250 ml @ 0 mls/hr TITRATE IV Last administered on 11/07/16 21: 10; Start 11/07/16 at 21:00; Stop 11/08/16 at 10:20; Status DC Furosemide (Lasix Inj) 20 mg NOW ONCE IV PUSH Last administered on 11/07/16 16 :27; Start 11/07/16 at 15:45; Stop 11/07/16 at 15:46; Status DC Furosemide 20 mg 20 mg ONCE ONCE IV PUSH Last administered on 11/13/16 15:12 ; Start 11/13/16 at 14:15; Stop 11/13/16 at 14:16; Status DC Glucagon (Glucagon Inj) 1 mg UNSCH PRN OTHER HYPOGLYCEMIA-SEE COMMENTS; Start 11/07/16 at 04:15 Hydromorphone HCl (Dilaudid Pf Inj) 0.5 mg Q2HR PRN IV PUSH PAIN SCALE 7 TO 10 ; Start 11/20/16 at 18:15 Hydromorphone HCl 1 mg 1 mg Q2HR PRN IV PUSH PAIN SCALE 7 TO 10 Last administered on 11/19/16 22:40; Start 11/08/16 at 15:45; Stop 11/20/16 at 18:08 ; Status DC Insulin Aspart 1 1 Q6H SQ Last administered on 11/20/16 12:29; Start 11/07/16 at 06:00 Insulin Human Regular (NovoLIN R SUPPLEMENTAL SCALE) 1 ACHS SLIDING SCALE SQ ; Start 11/06/16 at 16:00; Stop 11/07/16 at 04:14; Status DC Labetalol HCl (Trandate Inj) 10 mg Q1H PRN IV SYS BP GREATER THAN 170 MMHG Last administered on 11/13/16 09:09; Start 11/13/16 at 01:30 Magnesium Oxide 800 mg 800 mg UNSCH PRN PO For Magnesium 1.2 - 1.6 mg/dL Last administered on 11/11/16 08:31; Start 11/07/16 at 08:45 Magnesium Sulfate 2 gm/Sodium Chloride 100 ml @ 50 mls/hr UNSCH PRN IV For Magnesium 1.2 - 1.6 mg/dL Last administered on 11/18/16 06:47; Start 11/07/16 at 08:45 Magnesium Sulfate/ Sodium Chloride (Magnesium Sulfate Inj/NS Inj) 100 ml @ 50 mls/hr UNSCH PRN IV For Magnesium 0.9 - 1.1 mg/dL; Start 11/07/16 at 08:45 Metoprolol Tartrate (Lopressor) 12.5 mg Q12HR PO Last administered on 08:19; Start 11/19/16 at 21:00 Metoprolol Tartrate 2.5 mg 2.5 mg Q6H PRN IV PUSH SYS BP GREATER THAN 160 MMHG Last administered on 11/12/16 05:08; Start 11/08/16 at 14:45 Metronidazole (Flagyl 500 Mg Inj) 100 ml @ 100 mls/hr Q8H IV Last administered on 11/09/16 20:19; Start 11/06/16 at 13:00; Stop 11/09/16 at 21:17 ; Status DC Midazolam HCl 0.5 mg 0.5 mg Q5M PRN IV RESTLESSNESS X 4 DOSES MAX; Start at 15:00; Stop 11/06/16 at 15:21; Status DC Miscellaneous (Pill Splitter) 1 ea UNSCH PRN OTHER SEE LABEL COMMENTS; Start at 10:15 Miscellaneous Information SPECIFIC LAB TO BE DRAWN:VANCOMYCIN TROUGH DATE TO... ONCE ONCE .XX Last administered on 11/11/16 14:00; Start 11/11/16 at 14:45; Stop 11/11/16 at 14:46; Status DC Morphine Sulfate (Morphine Inj) 2 mg Q6H PRN IV PAIN SCALE 6-10 Last administered on 11/05/16 18:31; Start 11/05/16 at 18:00; Stop 11/06/16 at 12:36; Status DC Multivitamins 10 ml/Folic Acid 1 mg/Amino Acids/ Electrolytes/ Dextrose 1,010.2 ml @ 42 mls/hr Q24H IV Last administered on 11/16/16 19:42; Start 11/08/16 at 20:00; Stop 11/17/16 at 16:55; Status DC Multivitamins/ Folic Acid/Amino Acids/ Electrolytes/ Dextrose (Mvi-12 Inj/ Folvite Inj/ Clinimix E 4.25/5) 1,010.2 ml @ 42 mls/hr Q24H IV Last administered on 11/08/16 10:30; Start 11/08/16 at 11:00; Stop 11/08/16 at 19:59 ; Status DC Ondansetron HCl (Zofran Inj) 4 mg Q6H PRN IV NAUSEA OR VOMITING Last administered on 11/20/16 22:18; Start 11/06/16 at 12:30 Ondansetron HCl 4 mg 4 mg ONCE ONCE IV Last administered on 11/05/16 02:54; Start 11/05/16 at 02:00; Stop 11/05/16 at 02:01; Status DC Pantoprazole Sodium 40 mg 40 mg Q24H IV PUSH Last administered on 11/05/16 17: 05; Start 11/05/16 at 16:00; Stop 11/06/16 at 15:16; Status DC Pharmacy Profile Note (Vancomycin Consult Pharmacy) ml @ 0 mls/hr UNSCH OTHER ; Start 11/05/16 at 16:45; Stop 11/12/16 at 10:22; Status DC Potassium Phosphate 2000 mg 2,000 mg UNSCH PRN PO/TUBE SEE LABEL COMMENTS; Start 11/07/16 at 08:45 Potassium Phosphate 500 mg 500 mg DAILY PO Last administered on 11/21/16 08:20 ; Start 11/10/16 at 09:00 Potassium Phosphate/Sodium Chloride (Potassium Phosphate Inj/NS 250 ml Inj) 260 ml @ 42 mls/hr UNSCH PRN IV SEE LABEL COMMENTS Last administered on 11/10/16 06:09; Start 11/07/16 at 08:45 Potassium Chloride 100 ml @ 50 mls/hr Q2H PRN IV For Potassium 3.3 - 3.5 mEq/ L Last administered on 11/17/16 07:53; Start 11/07/16 at 08:45 Propofol (Diprivan 1000 Mg/100ml Inj) 100 ml @ 0 mls/hr TITRATE IV Last administered on 11/17/16 10:23; Start 11/07/16 at 03:45; Stop 11/17/16 at 15:47 ; Status DC Sodium Chloride (NS 1000 ml Inj) 100 ml @ 1,000 mls/hr Q6M ONCE IV ; Start 11/06 at 13:00; Stop 11/06/16 at 13:05; Status DC Sodium Chloride (NS Flush) 2 ml BID IV FLUSH Last administered on 11/21/16 08: 19; Start 11/06/16 at 21:00 Sodium Chloride (Sodium Chloride) 2 gm BID PO Last administered on 11/21/16 08 :20; Start 11/13/16 at 14:00 Sodium Phosphate/ Sodium Chloride (Sodium Phosphate Inj/NS 250 ml Inj) 250 ml @ 42 mls/hr UNSCH PRN IV For Phosphorus < 2.5 mg/dL; Start 11/07/16 at 08:45 Vancomycin HCl 1000 mg/Sodium Chloride 250 ml @ 250 mls/hr Q24H IV ; Start 11/05 at 17:00; Stop 11/05/16 at 17:00; Status DC Vancomycin HCl 1250 mg/Sodium Chloride 262.5 ml @ 250 mls/hr Q24H IV Last administered on 11/09/16 09:13; Start 11/07/16 at 09:00; Stop 11/09/16 at 10:39 ; Status DC Vancomycin HCl 1500 mg/Sodium Chloride 515 ml @ 257.5 mls/ hr Q18H IV ; Start 11/11/16 at 18:00; Stop 11/11/16 at 18:22; Status DC Vancomycin HCl/ Sodium Chloride (Vancomycin Inj/ NS 250 ml Inj) 262.5 ml @ 250 mls/hr Q18H IV Last administered on 11/11/16 15:23; Start 11/10/16 at 03:00; Stop 11/11/16 at 16:08; Status DC Vancomycin HCl/ Sodium Chloride (Vancomycin Inj/ NS 500 ml Inj) 515 ml @ 257.5 mls/ hr Q18H IV Last administered on 11/12/16 05:49; Start 11/12/16 at 06:00; Stop 11/12/16 at 10:22; Status DC Assessment and Plan Problem List: (1) Nausea & vomiting Status: Resolved (2) Weakness Status: Acute (3) Leukocytosis Status: Resolved Plan: surgical site debrided wbc improved hr and temp controlled blood cultures show gram pos cocci further id pending (4) Hypokalemia Status: Resolved Plan: on potassium replacement protocall (5) Dural tear Status: Acute Plan: treated surgically with blood and dural patch drain in place Assessment and Plan pt progressing slowly csf drain working vss responsive working with PT will need [facility] and nutritional status in Nestor Clifton DO Nov 21, 2016 10:01
--- NOTE | 2016-11-21 10:03 | HHI.CCPN ---
Subjective Remarks/Hospital Course This 86 year-old woman who presents to the emergency department complaining of nausea vomiting, low back pain, and chills on 11/05/2016. She has a history of metastatic endometrial cancer diagnosed 5 years ago initially, as well as chronic back pain. The chronic back pain preceded the malignancy. Most recent PET scan as reported by daughter revealed multiple bony metastasis to include skull, and right upper arm. She underwent an L4-L5 laminectomy about 2 weeks ago in [facility] . Prior to her surgery , the patient was extremely physically active without any ambulation difficulties.She was doing well initially but over the past several days complained of increased nausea vomiting, increased low back pain, and chills. Upon admission incision has not had any drainage or bleeding,and she denied any urinary symptoms. The patient was admitted to [facility] on 11/05/2016, she subsequently has begun to have leukocytosis, urinary retention and noted drainage from lumbar laminectomy surgical site. Lumbar CT scan revealed postop laminectomy L4 with fluid and scattered bubbles possibly resolving hematoma, abscess could not be excluded. ID and Neurosurgery was consulted.Critical care medicine is consult that for patients noted sepsis, and progressive weakness bilateral lower extremities. Subjective: 11/07 Seen upon return from the OR following lumbar wound debridement and evacuation of epidural abscess by Dr. Melissa. Patient is to remain intubated per Dr. Melissa as she must be maintained with HOB flat due to dural leak (but rotate side to side q2 hours). At present she is not on continuous sedation, but is unresponsive to deep noxious stimuli upon return from general anesthesia. Reportedly large amount of respiratory secretions noted upon intubation by anesthesia. Routine airway per documentation. She received 1800 crystalloid intraoperatively. EBL 20 ml. 11/08: Afebrile. Patient remains on propofol infusion, moving bilateral upper and lower extremities wiggling toes and moving upper extremities. The patient was inadvertently placed on fentanyl infusion last night for purported pain. Fentanyl infusion discontinued, patient on when necessary pain medicine now currently following commands and denies pain. Leukocytosis resolved, the patient continues on Flagyl, Vancomycin and Ceptazidime per ID Dr. Nina. The patient remains flat in bed, supine position in order to begin nutrition PPN was initiated this a.m.. Extensive discussion with Dr. Melissa and Dr. Nina and palliative care consulted with planned discussion with family today. 11/09: Leukocytosis resolved. Wound culture was noted staph aureus. Patient was noted to have hypophosphatemia and hypomagnesemia ischemia which are being currently replaced. PPN was initiated for nutritional support secondary to put required positioning. Palliative care was consulted to discuss goals of care, currently aggressive treatment management continued per family request. 11/10: Afebrile .No acute events overnight. Patient underwent placement of CSF drain yesterday by interventional radiology. Patient's head of the bed to remain flat until Tuesday. The patient continues to have low phosphate and was placed on scheduled doses of phosphorus yesterday. Family requesting medication administration of vitamin C secondary to a small non-scientific research study that was published recently. Explained to family that it wasn't in evidence-based full research study performed but a small study without any level of evidence for implementation in the [place] at this time. Vitamin C is not indicated at this time. The family was educated by neurosurgery that the patient may have to possibly have surgery. 11/11 Tmax 99.0. The patient's CSF lumbar drain reevaluated by Dr. Melissa last evening, now draining fluid. No further drainage from surgical site. The patient remains in a supine position, PPN infusing for nutritional support. Her electrolytes continually being replaced per protocol. The patient remains on low-dose propofol infusion. Patient responsive following commands. 11/12: Patient was noted not to be moving upper extremities on command. Patient off sedation greater than 24 hours. MRI obtained today. Patient will return to surgery with Dr. Melissa. Lumbar drain dressing dry, with CSF draining. 11/13: The patient returned to neurosurgery yesterday, new lumbar drain placed. Minimal movement of bilateral upper extremities noted this a.m.. Patient moving hands minimally lifting arms, wiggling fingers and toes. 11/14:Afebrile: No acute changes overnight. Patient responsive to family, follows commands. The patient continues to be in supine position only to be log rolled secondary. Lumbar drain patent. 11/15 Patient remains intubated. On no sedation awake. Afebrile. Patient is in supine position lumbar drain in place. 11/16 No acute events overnight. Awake on ACV with PEEP:5 and FIO2 35%. On no sedation. 11/17 Patient is sedated with Diprivan and intubated. Afebrile. 11/18 Patient s/p extubation yesterday. Awake and alert. Afebrile. Lumbar drain still in place. 11/19 Patient is awake and alert lying in bed in NAD. Afebrile. Plan for possible closure of lumbar drain today per NSG. 11/20 No acute events overnight. Patient is lying in be din NAD. 11/21 No events overnight. Awake and alert Lumbar drain closed . Objective Vital Signs Date Time Temp Pulse Resp B/P Pulse Ox O2 Delivery O2 Flow Rate FiO2 11/21/16 08:00 91 11/21/16 08:00 Nasal Cannula 1.00 30 11/21/16 08:00 98.2 15 136/66 95 Intake and Output 11/20/16 11/20/16 11/21/16 08:00 16:00 00:00 Intake Total 99 ml 440 ml 280 ml Output Total 320 ml 330 ml 250 ml Balance -221 ml 110 ml 30 ml Result Diagram: 11/21/16 0312 11/21/16 0312 Other Results Laboratory Tests Test 11/20/16 11/21/16 13:00 03:12 Hemoglobin 8.3 GM/DL 7.6 GM/DL Hematocrit 24.7 % 22.5 % White Blood Count 5.6 TH/MM3 Red Blood Count 2.37 MIL/MM3 Mean Corpuscular Volume 95.0 FL Mean Corpuscular Hemoglobin 32.0 PG Mean Corpuscular Hemoglobin 33.6 % Concent Red Cell Distribution Width 14.1 % Platelet Count 236 TH/MM3 Mean Platelet Volume 8.6 FL Neutrophils (%) (Auto) 70.6 % Lymphocytes (%) (Auto) 6.6 % Monocytes (%) (Auto) 17.5 % Eosinophils (%) (Auto) 4.3 % Basophils (%) (Auto) 1.0 % Neutrophils # (Auto) 4.0 TH/MM3 Lymphocytes # (Auto) 0.4 TH/MM3 Monocytes # (Auto) 1.0 TH/MM3 Eosinophils # (Auto) 0.2 TH/MM3 Basophils # (Auto) 0.1 TH/MM3 CBC Comment DIFF FINAL Differential Comment Sodium Level 136 MEQ/L Potassium Level 4.0 MEQ/L Chloride Level 102 MEQ/L Carbon Dioxide Level 27.1 MEQ/L Anion Gap 7 MEQ/L Blood Urea Nitrogen 15 MG/DL Creatinine 0.41 MG/DL Estimat Glomerular Filtration 147 ML/MIN Rate Random Glucose 89 MG/DL Calcium Level 8.4 MG/DL Imaging Last Impressions Head CT 11/20/16 0600 Signed Impressions: Service Date/Time: Sunday, November 20, 2016 08:56 - CONCLUSION: 1. Suspected small persistent foci of hemorrhage in the lateral ventricles. 2. 4 mm subdural collection over the right parietal lobe. Some chronic subdural fluid or more acute mild subdural hemorrhage in an anemic patient could have this appearance. This finding is not clearly demonstrated on the prior MRI examination. Significant mass effect is not seen. Naveed Micheal MD Chest X-Ray 11/15/16599 Signed Impressions: Service Date/Time: Tuesday, November 15, 2016 04:15 - CONCLUSION: Tubes and catheters are in good position. Mild pulmonary vascular congestion persists Jimi Schrader MD Thoracic Spine MRI 11/12/16 0000 Signed Impressions: Service Date/Time: Saturday, November 12, 2016 11:46 - CONCLUSION: 1. Degenerative changes but no canal or foraminal narrowing. 2. No evidence for abscess. 3. T5 and T2 vertebral body lesions are noted. Metastatic deposits are not excluded. 4. Extensive subcutaneous edema of the upper thorax and cervical region. 5. Large bilateral pleural effusions. Jesús Anderson MD Lumbar Spine X-Ray 11/12/16 0000 Signed Impressions: Service Date/Time: Saturday, November 12, 2016 21:53 - CONCLUSION: 1. Postsurgical changes as above. Reed George MD Lumbar Spine MRI 11/12/16 0000 Signed Impressions: Service Date/Time: Saturday, November 12, 2016 11:46 - CONCLUSION: 1. Complex fluid collection appears slightly increased in sagittal dimension with rim enhancement and marked surrounding edema and enhancement of the paraspinal soft tissues. This is consistent with the clinical history of abscess. 2. There is severe associated spinal stenosis secondary to mass effect from the fluid collection. Jesús Anderson MD Cervical Spine MRI 11/12/16 0000 Signed Impressions: Service Date/Time: Saturday, November 12, 2016 11:46 - CONCLUSION: 1. No evidence for abscess. 2. Nonspecific enhancing lesion of the T2 vertebral body, as well as diffuse decreased T1 signal involving the C7 pedicle and transverse process. The possibility of metastatic disease should be excluded. 3. Severe canal stenosis with cord compression at C5-6 and moderate canal stenosis at C4-5. Jesús Anderson MD ADDENDUM: There is extensive subcutaneous edema of the cervical and upper thoracic subcutaneous tissues posteriorly. Jesús Anderson MD Brain MRI 11/12/16 0000 Signed Impressions: Service Date/Time: Saturday, November 12, 2016 11:46 - CONCLUSION: 1. There are no findings to indicate acute infarct. 2. Abnormal signal layering within the occipital horns bilaterally likely representing a small amount of blood products. This finding is new compared to the prior CT. 3. Chronic changes include generalized atrophy and periventricular white matter change characteristic of chronic microvascular ischemia. Naveed Smith MD Lumbar Puncture Fluoroscopy 11/09/16 0000 Signed Impressions: Service Date/Time: Wednesday, November 09, 2016 16:21 - CONCLUSION: Uncomplicated lumbar drain placement as above. Naveed Rosenthal MD Entire Spine MRI 11/06/16 Signed Impressions: Service Date/Time: Sunday, November 06, 2016 14:28 - CONCLUSION: 1. As noted on the MRI lumbar spine there is a complex fluid collection in the soft tissues posterior to the spinal canal at the level of L4 measuring 3.4 x 3.1 x 3.9 cm suggestive of a postoperative hematoma/seroma. An abscess cannot be excluded. 2. Abnormal signal in the body of T2 suspicious for bony metastatic disease. 3. Status post fusion of C6-7. 4. Broad-based bulging with disc osteophyte complexes at C4-5 and C5-6. Possible myelopathy in the cord at this level. Patrick Chavez MD Lumbar Spine CT 11/05/16 0000 Signed Impressions: Service Date/Time: Saturday, November 05, 2016 04:14 - CONCLUSION: 1. Postop laminectomy at L4 level with fluid within the operative bed and a few scattered gas bubbles may be postsurgical change and possibly resolving hematoma, however abscess is not excluded. No definite signs of osteomyelitis. 2. Neural foramina compromise left L2-L3, bilateral L4-L5. 3. Bilateral masses compromise L5-S1. 4. Residual slight thecal sac stenosis may be present at L3-4 and L4-5. Deangelo Monsivais MD Abdomen/Pelvis CT 11/05/16 0000 Signed Impressions: Service Date/Time: Saturday, November 05, 2016 16:12 - CONCLUSION: 1. There is residual IV contrast within the kidneys and bladder. 2. There are no findings to indicate a bowel obstruction. 3. The patient is post hysterectomy. Hussain Sandoval MD Objective Remarks GENERAL: Patient is lying in bed in NAD SKIN: Warm and dry. HEAD: Normocephalic. EYES: No scleral icterus. No injection or drainage. NECK: Supple, trachea midline. No JVD or lymphadenopathy. CARDIOVASCULAR: Tachycardic ,nl S1, S2, 2/6 systolic murmur left sternal border RESPIRATORY: Breath sounds equal bilaterally. No accessory muscle use. GASTROINTESTINAL: Abdomen soft, non-tender, nondistended. MUSCULOSKELETAL: No cyanosis, + edema. BACK: Nontender without obvious deformity. No CVA tenderness. Neuro: Awake and alert A/P Assessment and Plan Plan by systems: Neurologic: Metabolic encephalopathy secondary to sepsis- resolved Lumbar epidural abscess Status post lumbar wound debridement and drainage epidural abscess 11/07/16 (Dr. Melissa) S/P exploration, irrigation and replacement of lumbar drain 11/12/16 (Dr. Melissa) 11/20 CT brain: Suspected small persistent foci of hemorrhage in the lateral ventricles. 4 mm subdural collection over the right parietal lobe. Some chronic subdural fluid. Neurochecks per ICU protocol. Lumbar drain closed possible d/c lumbar drain tomorrow per NSG 11/05 CT lumbar spine-postop laminectomy L4 with fluid and scattered bubbles possibly resolving hematoma. Abscess cannot be excluded. Neural foraminotomy not compromise left L2-3, L4-L5, residual thecal sac stenosis may be present L3 L4, L4-L5,B/L mass compromise L5-S1. MRI -post surgical changes with hematoma/seroma ? Abscess L3/L4 and L4/L5. 11/07-postop CSF leak, spinal epidural abscess, postoperative wound dehiscence, pre-existing dural tear with repair, status post debridement lumbar wound dehiscence, evacuation of lumbar abscess indirect repair of pre-existing dural tear Reportedly persistent dural leak noted intraoperatively. Patient is to remain head of bed down/supine per Dr. Melissa. EEG 11/06/16moderately slow background consistent with encephalopathy. No epileptiform features. Neurology following, Dr. Thomson NSG following, Dr. Melissa 11/09 IR CSF drain L1-L2 11/12 CT lumbar spine L3-4, L4-5 mass effect. 11/12 Replacement of lumbar drain and evaluation in OR 11/12 CT [id number] cervical moderate left foraminal stenosis, C3-C4 severe left foraminal stenosis, C4-C5 mild bilateral foraminal stenosis mild abutment of ordered, C5-C6 mild cord compression 11/12 CT thoracic-T2 and T5 lesion cannot rule out metastasis Respiratory: Acute respiratory failure- Extubated 11/17 Continue with oxygen keep sat >92% Bronchodilators CT [id number] bilateral pleural effusions, T2 and T5 lesions cannot rule out metastatic disease Cardiovascular: On Lopressor 12.5mg PO Q12- Monitor HR and BP Maintain MAP > 65 mmHg FEN/RENAL Acute kidney injury- resolved Neurogenic bladder with urinary retention. Hyponatremia Monitor renal function, I/O's, Electrolyte replacement per ICU protocol GI: Moderate protein energy malnutrition On Po diet Seen by Dr. Hale, no GI issues identified. ID: Severe sepsis-resolved Leukocytosis-resolved Bandemia Abx per ID ( Cefazolin) monitor for signs of infections ( Fever, WBC) HEME: Metastatic Endometrial cancer s/p recent chemotherapy 10/06 Chronic anemia Monitor CBC Endocrine: Low-dose insulin sliding scale at bedside glucose every 6 hours. GI Prophylaxis Pepcid twice a day DVT Prophylaxis -- SCDs. Hold pharmacologic DVT prophylaxis defer to neurosurgery when to initiate. ACCESS: Port accessed right chest. Palliative care following Will sign off Level 3 Yves Sanchez MD Nov 21, 2016 10:02
[2016-11-21] MEDS: ONDANSETRON HCL 4 MG/2 ML VIAL IV PRN (11:30)
[2016-11-21] MEDS: HYDROmorphone HCL PF 1 MG/ML VIAL IV PUSH PRN (16:06)
--- NOTE | 2016-11-21 17:27 | HHI.NSPN ---
History Chief Complaint: intubated and sedated Interval History 86-year-old female with history of lumbar laminectomy approximately 2 weeks ago in [place]. Patient presents to the emergency room on 11/05/16 with decreasing mental status, GI symptoms, and subsequent opening of the wound with wound dehiscence and purulent drainage. 11/07/16: Patient to surgery on an urgent basis for evacuation of epidural abscess , wound debridement. Patient found to have pre-existing dural tear with CSF leakage which could not be primarily repaired. Indirect repair of dural tear with blood clot, Gelfoam, thrombin, tissue glue and reclosure of wound site. 11/08/16: Patient remains intubated, sedated, head of bed flat. Dressing dry and intact 11/09/16: Patient remains intubated. Slight amount of drainage noted from incision. Lumbar subarachnoid drain placed per interventional radiology 11/10/16: Lumbar subarachnoid drain is not functioning well. Discussed with nursing staff 11/11/16: Intermittent drainage from subarachnoid drain. Wound and dressing dry in the morning. 11/12/16: Subarachnoid drain with minimal output. Mild drainage from wound. Return to operating room for replacement subarachnoid drain, wound debridement, repeat closure of CSF leak 11/17/16: Extubated. Sitting up in bed. Lumbar drain remains in place 11/20/16: CT scan was small right parieto-occipital subdural effusion without significant mass effect. Dressing dry. Drain closed the reservoir Exam Results Vital Signs Date Time Temp Pulse Resp B/P Pulse Ox O2 Delivery O2 Flow Rate FiO2 11/21/16 16:52 16 11/21/16 16:00 82 11/21/16 12:00 97.9 120/61 95 11/21/16 10:06 Nasal Cannula 0.50 11/21/16 08:00 30 Intake and Output 11/20/16 11/20/16 11/21/16 08:00 16:00 00:00 Intake Total 99 ml 440 ml 280 ml Output Total 320 ml 330 ml 250 ml Balance -221 ml 110 ml 30 ml Physical Examination Patient underwent bedpan during visit of the undersigned today. I had an extensive discussion with the patient's nurse regarding the wound. Initially very minimal staining of the dressing reported. However later today, with patient sitting up approximately 45, slight amount of drainage noted from the incision. Lab, Micro, Other Results 11/12/16 wound cultures all no growth. Laboratory Tests Test 11/21/16 03:12 White Blood Count 5.6 TH/MM3 Red Blood Count 2.37 MIL/MM3 Hemoglobin 7.6 GM/DL Hematocrit 22.5 % Mean Corpuscular Volume 95.0 FL Mean Corpuscular Hemoglobin 32.0 PG Mean Corpuscular Hemoglobin 33.6 % Concent Red Cell Distribution Width 14.1 % Platelet Count 236 TH/MM3 Mean Platelet Volume 8.6 FL Neutrophils (%) (Auto) 70.6 % Lymphocytes (%) (Auto) 6.6 % Monocytes (%) (Auto) 17.5 % Eosinophils (%) (Auto) 4.3 % Basophils (%) (Auto) 1.0 % Neutrophils # (Auto) 4.0 TH/MM3 Lymphocytes # (Auto) 0.4 TH/MM3 Monocytes # (Auto) 1.0 TH/MM3 Eosinophils # (Auto) 0.2 TH/MM3 Basophils # (Auto) 0.1 TH/MM3 CBC Comment DIFF FINAL Differential Comment Sodium Level 136 MEQ/L Potassium Level 4.0 MEQ/L Chloride Level 102 MEQ/L Carbon Dioxide Level 27.1 MEQ/L Anion Gap 7 MEQ/L Blood Urea Nitrogen 15 MG/DL Creatinine 0.41 MG/DL Estimat Glomerular Filtration 147 ML/MIN Rate Random Glucose 89 MG/DL Calcium Level 8.4 MG/DL Medical Decision Making Impression and Plan Impression: Status post repeat debridement lumbar wound dehiscence, replacement lumbar subarachnoid drain, indirect closure of CSF leak and dural tear. 11/12/16 Incision reported was slight drainage today with patient sitting up Small right parieto-occipital subdural effusion on CT scan had 11/20/16 Plan: lumbar subarachnoid drain reopened to reservoir. Continue to mobilize out of bed and chair. Continue to monitor incision. Need to monitor neurologic function closely with possible follow-up CT scan of the head. Discussed with family in [facility] today. Pratik Melissa MD Nov 21, 2016 17:27
[2016-11-22] VITALS (14 sets, daily range): BP systolic 127–175; BP diastolic 62–79; PULSE 75–85; RESP 14–25; TEMP 98.2–98.7; O2SAT 92–100
[2016-11-22] MEDS: CHLORHEXIDINE GLUCONATE 2 % 1 PACK (2 CLOTHS) TOP SCH ×2 (03:16→20:24)
[2016-11-22] MEDS: FAMOTIDINE 20 MG/2 ML VIAL IV PUSH SCH ×2 (03:16→15:59)
[2016-11-22] MEDS: ceFAZolin 2 GM PREMIX 50 ML IV SCH ×3 (03:20→20:22)
[2016-11-22 04:54] LABS: AUTOMATED NEUTROPHIL # 3.4 TH/MM3 (1.8-7.7); BASOPHIL % 0.8 % (0.0-2.0); EOSINOPHIL # 0.3 TH/MM3 (0-0.4); EOSINOPHIL % 5.7 % (0.0-4.0); HEMATOCRIT 22.6 % (35.0-46.0); HEMO FLAGS DIFF FINAL; LYMPH % 6.7 % (9.0-44.0); LYMPHOCYTE # 0.3 TH/MM3 (1.0-4.8); MEAN CELL VOLUME 95.9 FL (80.0-100.0); MEAN CORPUSCULAR HEMOGLOBIN 32.3 PG (27.0-34.0); MEAN CORPUSCULAR HGB CONC 33.7 % (32.0-36.0); MONO % 15.9 % (0.0-8.0); NEUT % 70.9 % (16.0-70.0); PLATELET COUNT 221 TH/MM3 (150-450); RED BLOOD COUNT 2.36 MIL/MM3 (4.00-5.30); RED CELL DISTRIBUTION WIDTH 14.4 % (11.6-17.2); WHITE BLOOD COUNT 4.7 TH/MM3 (4.0-11.0)
[2016-11-22 05:16] LABS: ALT (GPT) 7 U/L (10-53); ANION GAP 6 MEQ/L (5-15); AST (GOT) 16 U/L (15-37); BICARBONATE 27.6 MEQ/L (21.0-32.0); BLOOD UREA NITROGEN 12 MG/DL (7-18); CHLORIDE 102 MEQ/L (98-107); MAGNESIUM 1.6 MG/DL (1.5-2.5); POTASSIUM 4.1 MEQ/L (3.5-5.1); SODIUM (NA) 136 MEQ/L (136-145)
[2016-11-22 05:19] LABS: ALKALINE PHOSPHATASE 74 U/L (45-117); GLOMERULAR FILTRATION RATE 161 ML/MIN (>89); TOTAL BILIRUBIN ADULT 0.4 MG/DL (0.2-1.0)
[2016-11-22] MEDS: INSULIN ASPART SUPPLEMENTAL SCALE SQ SCH ×5 (06:00→23:14)
[2016-11-22] MEDS: CHLORHEXIDINE 0.12% (ORAL KIT) 15 ML CUP MT SCH ×2 (07:48→19:38)
--- NOTE | 2016-11-22 08:25 | HHI.PR ---
Subjective Remarks Patient is sleepy this AM. Arouses and follows commands. Denies any CP or SOB , resting comfortably. Lumbar drain in place. VSS afebrile Objective Vital Signs Date Time Temp Pulse Resp B/P Pulse Ox O2 Delivery O2 Flow Rate FiO2 11/22/16 08:00 83 11/22/16 07:00 94 Room Air 11/22/16 06:00 82 11/22/16 04:00 98.4 75 18 139/62 98 11/22/16 04:00 75 11/22/16 02:00 83 11/22/16 00:00 83 11/22/16 00:00 98.2 83 14 127/66 100 11/21/16 22:00 85 11/21/16 21:00 98 Nasal Cannula 2.00 11/21/16 20:14 94 21 11/21/16 20:00 97.8 87 22 123/57 94 11/21/16 20:00 87 11/21/16 19:00 97 Room Air 11/21/16 18:00 84 11/21/16 17:43 Room Air 11/21/16 16:52 16 11/21/16 16:00 98.2 82 18 124/61 97 11/21/16 16:00 82 11/21/16 14:00 84 11/21/16 12:00 78 11/21/16 12:00 97.9 78 20 120/61 95 11/21/16 10:06 97 Nasal Cannula 0.50 11/21/16 10:00 74 I/O 11/21/16 11/21/16 11/21/16 11/22/16 11/22/16 11/22/16 07:00 15:00 23:00 07:00 15:00 23:00 Intake Total 220 ml 667 ml 240 ml 165 ml Output Total 300 ml 550 ml 507 ml 951 ml Balance -80 ml 117 ml -267 ml -786 ml Intake Oral 100 ml 480 ml 100 ml 100 ml IV Total 120 ml 187 ml 140 ml 65 ml Output Urine Total 250 ml 550 ml 450 ml 900 ml Emesis 50 ml Drainage Total 57 ml 51 ml # Bowel Movements 1 1 Result Diagram: 11/22/16 0324 11/22/16 0324 Procedures replacement of CSF drain and dural patch 11/12 evacuation of epidural abscess 11/07 had laminectomy 2 weeks ago Objective Remarks GENERAL: Alert and cooperative SKIN: Warm and dry. Lumbar dressing on back HEAD: Normocephalic. EYES: No scleral icterus. No injection or drainage. NECK: Supple, trachea midline. No JVD or lymphadenopathy. CARDIOVASCULAR: Regular rate and rhythm without murmurs, gallops, or rubs. RESPIRATORY: Breath sounds equal bilaterally. No accessory muscle use. GASTROINTESTINAL: Abdomen soft, non-tender, nondistended. MUSCULOSKELETAL: No cyanosis. Generalized edema lumbar drain Medications and IVs Current Medications Medications (Trade) Dose Ordered Sig/Laeja Route Start Time Stop Time Status Last Admin (Tylenol Supp) 650 mg Q4H PRN RECTAL 11/05/16 18:30 11/05/16 18:30 (NS Flush) 2 ml UNSCH PRN IV FLUSH 11/06/16 12:30 11/11/16 08:31 (NS Flush) 2 ml BID IV FLUSH 11/06/16 21:00 11/21/16 20:48 (Tylenol) 650 mg Q6H PRN PO 11/06/16 12:30 11/08/16 16:01 (Zofran Inj) 4 mg Q6H PRN IV 11/06/16 12:30 11/21/16 11:30 (Dulcolax Supp) 10 mg DAILY PRN RECTAL 11/06/16 12:30 Miscellaneous Information 1 Q361D XX 11/06/16 12:30 (Chlorhexidine 2% Cloth) Taper DAILY@04 TOP 11/07/16 04:00 11/03/17 03:59 11/22/16 03:16 (Chlorhexidine 2% Cloth) 3 pack UNSCH PRN TOP 11/06/16 12:30 (Peridex 0.12% Liq) 15 ml BID@08,20 MT 11/07/16 08:00 11/17/16 07:53 (D50w (Vial) Inj) 25 ml UNSCH PRN IV PUSH 11/07/16 04:15 (Glucagon Inj) 1 mg UNSCH PRN OTHER 11/07/16 04:15 Insulin Aspart 1 1 Q6H SQ 11/07/16 06:00 11/20/16 12:29 Potassium Chloride 100 ml @ 50 mls/hr Q2H PRN IV-CENTRAL 11/07/16 08:45 11/07/16 23:30 Potassium Chloride 100 ml @ 50 mls/hr Q2H PRN IV 11/07/16 08:45 Potassium Chloride 100 ml @ 25 mls/hr UNSCH PRN IV-CENTRAL 11/07/16 08:45 Potassium Chloride 100 ml @ 50 mls/hr Q2H PRN IV 11/07/16 08:45 11/17/16 07:53 (Magnesium Sulfate Inj/NS Inj) 100 ml @ 50 mls/hr UNSCH PRN IV 11/07/16 08:45 Magnesium Oxide 800 mg 800 mg UNSCH PRN PO 11/07/16 08:45 11/11/16 08:31 (Magnesium Sulfate Inj/NS Inj) 100 ml @ 50 mls/hr UNSCH PRN IV 11/07/16 08:45 11/18/16 06:47 Potassium Phosphate 2000 mg 2,000 mg Q4H PRN PO 11/07/16 08:45 11/12/16 08:42 (Sodium Phosphate Inj/NS 250 ml Inj) 250 ml @ 42 mls/hr UNSCH PRN IV 11/07/16 08:45 Potassium Phosphate 2000 mg 2,000 mg UNSCH PRN PO/TUBE 11/07/16 08:45 (Potassium Phosphate Inj/NS 250 ml Inj) 260 ml @ 42 mls/hr UNSCH PRN IV 11/07/16 08:45 11/10/16 06:09 (Pepcid Inj) 20 mg Q12H IV PUSH 11/07/16 16:00 11/22/16 03:16 Metoprolol Tartrate 2.5 mg 2.5 mg Q6H PRN IV PUSH 11/08/16 14:45 11/12/16 05:08 (1/2 NS 1000 ml Inj) 1,000 ml @ 0 mls/hr Q0M IV 11/09/16 09:53 11/18/16 20:46 (K-Phos) 500 mg DAILY PO 11/10/16 09:00 11/21/16 08:20 (Trandate Inj) 10 mg Q1H PRN IV 11/13/16 01:30 11/13/16 09:09 Sodium Chloride 2 gm 2 gm BID PO 11/13/16 14:00 11/21/16 20:48 (Ancef 2 Gm Premix) 50 ml @ 100 mls/hr Q8H IV 11/13/16 22:00 11/22/16 03:20 (Lopressor) 12.5 mg Q12HR PO 11/19/16 21:00 11/21/16 20:48 (Pill Splitter) 1 ea UNSCH PRN OTHER 11/19/16 10:15 (Dilaudid Pf Inj) 0.5 mg Q2HR PRN IV PUSH 11/20/16 18:15 11/21/16 16:06 Assessment and Plan Problem List: (1) Spinal epidural abscess Status: Acute Plan: Patient to surgery on an urgent basis on the for evacuation of epidural abscess, wound debridement. Patient found to have pre-existing dural tear with CSF leakage which could not be primarily repaired. Indirect repair of dural tear with blood clot, Gelfoam, thrombin, tissue glue and reclosure of wound site. Dressing on site. Lumbar drain in place draining was clamped for 24 hours over weekend. Dressing also had some drainage. PT eval and consult (2) Sepsis Status: Acute Plan: ID consulted and managing. On antibiotics. WBC stable at 4.7. 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 Patient has been extubated and is on O2 liters NC. HOB at 45 degrees. Started on Diet. (4) Anemia Status: Acute Plan: HGB stable at 7.6 unchanged from yesterday. Monitoring (5) Abnormal blood electrolyte level Status: Resolved Plan: Resolved Assessment and Plan Assessment and plan discussed with Dr. Kendrick. Palliative care following Discussed Condition With Nursing Discharge Planning [facility] Dayanara Barbour Nov 22, 2016 08:25
[2016-11-22] MEDS: POTASSIUM PHOSPHATE MONOBASIC 500 MG TAB PO SCH (09:13)
[2016-11-22] MEDS: METOPROLOL TARTRATE 25 MG TAB PO SCH ×2 (09:13→20:22)
[2016-11-22] MEDS: SODIUM CHLORIDE 1 GRAM TAB PO SCH ×2 (09:13→20:22)
[2016-11-22] MEDS: SODIUM CHLORIDE 0.9% FLUSH 10 ML FLUSH IV FLUSH SCH ×2 (09:13→20:23)
--- NOTE | 2016-11-22 21:03 | HHI.NSPN ---
History Chief Complaint: intubated and sedated Interval History 86-year-old female with history of lumbar laminectomy approximately 2 weeks ago in [place]. Patient presents to the emergency room on 11/05/16 with decreasing mental status, GI symptoms, and subsequent opening of the wound with wound dehiscence and purulent drainage. 11/07/16: Patient to surgery on an urgent basis for evacuation of epidural abscess , wound debridement. Patient found to have pre-existing dural tear with CSF leakage which could not be primarily repaired. Indirect repair of dural tear with blood clot, Gelfoam, thrombin, tissue glue and reclosure of wound site. 11/08/16: Patient remains intubated, sedated, head of bed flat. Dressing dry and intact 11/09/16: Patient remains intubated. Slight amount of drainage noted from incision. Lumbar subarachnoid drain placed per interventional radiology 11/10/16: Lumbar subarachnoid drain is not functioning well. Discussed with nursing staff 11/11/16: Intermittent drainage from subarachnoid drain. Wound and dressing dry in the morning. 11/12/16: Subarachnoid drain with minimal output. Mild drainage from wound. Return to operating room for replacement subarachnoid drain, wound debridement, repeat closure of CSF leak 11/17/16: Extubated. Sitting up in bed. Lumbar drain remains in place 11/20/16: CT scan was small right parieto-occipital subdural effusion without significant mass effect. Dressing dry. Drain closed the reservoir 11/21/16: Small amount of drainage from the incision. Drain reopened. 11/22/16: Drainage has stopped functioning in the afternoon. Dressing remains dry. Exam Results Vital Signs Date Time Temp Pulse Resp B/P Pulse Ox O2 Delivery O2 Flow Rate FiO2 11/22/16 20:04 100 Nasal Cannula 11/22/16 18:00 85 11/22/16 16:00 98.2 16 148/74 11/21/16 21:00 2.00 11/21/16 20:14 21 Intake and Output 11/21/16 11/21/16 11/22/16 08:00 16:00 00:00 Intake Total 220 ml 667 ml 240 ml Output Total 250 ml 550 ml 507 ml Balance -30 ml 117 ml -267 ml Physical Examination Respirations clear and regular Cardiac regular extremity edema or tenderness Dressing with minimal spotting. The wound remains slightly macerated, no significant increase erythema or edema Drain catheter in place but no longer draining. Lumbar subarachnoid drain catheter was functioning well earlier this morning during initial visit by the undersigned. Awake and alert. No significant confusion noted Sensation intact all extremities Strength moderate major flexion and extension groups all extremities Lab, Micro, Other Results Laboratory Tests Test 11/22/16 03:24 White Blood Count 4.7 TH/MM3 Red Blood Count 2.36 MIL/MM3 Hemoglobin 7.6 GM/DL Hematocrit 22.6 % Mean Corpuscular Volume 95.9 FL Mean Corpuscular Hemoglobin 32.3 PG Mean Corpuscular Hemoglobin 33.7 % Concent Red Cell Distribution Width 14.4 % Platelet Count 221 TH/MM3 Mean Platelet Volume 8.6 FL Neutrophils (%) (Auto) 70.9 % Lymphocytes (%) (Auto) 6.7 % Monocytes (%) (Auto) 15.9 % Eosinophils (%) (Auto) 5.7 % Basophils (%) (Auto) 0.8 % Neutrophils # (Auto) 3.4 TH/MM3 Lymphocytes # (Auto) 0.3 TH/MM3 Monocytes # (Auto) 0.8 TH/MM3 Eosinophils # (Auto) 0.3 TH/MM3 Basophils # (Auto) 0.0 TH/MM3 CBC Comment DIFF FINAL Differential Comment Sodium Level 136 MEQ/L Potassium Level 4.1 MEQ/L Chloride Level 102 MEQ/L Carbon Dioxide Level 27.6 MEQ/L Anion Gap 6 MEQ/L Blood Urea Nitrogen 12 MG/DL Creatinine 0.38 MG/DL Estimat Glomerular Filtration 161 ML/MIN Rate Random Glucose 93 MG/DL Calcium Level 8.4 MG/DL Magnesium Level 1.6 MG/DL Total Bilirubin 0.4 MG/DL Aspartate Amino Transf 16 U/L (AST/SGOT) Alanine Aminotransferase 7 U/L (ALT/SGPT) Alkaline Phosphatase 74 U/L Total Protein 5.3 GM/DL Albumin 2.1 GM/DL Prealbumin 12 MG/DL Medical Decision Making Impression and Plan Impression: Status post repeat debridement lumbar wound dehiscence, replacement lumbar subarachnoid drain, indirect closure of CSF leak and dural tear. 11/12/16 Incision with persistent minimal slight drainage-spotting of the dressing intermittent today. Small right parieto-occipital subdural effusion on CT scan had 11/20/16 Plan: lumbar subarachnoid drain does not appear to be functioning this afternoon. It may be pulled out of the subarachnoid space. Continuing head of bed mostly flapped this evening. Continue to monitor incision. Need to monitor neurologic function closely with possible follow-up CT scan of the head. We will cancel nucleotide study due to subarachnoid drain malfunction. Discussed with nursing staff. Continue to keep patient totally off of incision. Discussed with family in [facility] today. Pratik Melissa MD Nov 22, 2016 21:03
[2016-11-22] MEDS: HYDROmorphone HCL PF 1 MG/ML VIAL IV PUSH PRN (23:14)
[2016-11-23] VITALS (14 sets, daily range): BP systolic 115–160; BP diastolic 56–74; PULSE 74–87; RESP 14–22; TEMP 97.8–98.9; O2SAT 96–99
[2016-11-23] MEDS: FAMOTIDINE 20 MG/2 ML VIAL IV PUSH SCH ×2 (03:29→15:01)
[2016-11-23] MEDS: INSULIN ASPART SUPPLEMENTAL SCALE SQ SCH ×4 (05:25→23:55)
[2016-11-23] MEDS: ceFAZolin 2 GM PREMIX 50 ML IV SCH ×3 (05:26→20:42)
[2016-11-23 07:09] LABS: AUTOMATED NEUTROPHIL # 4.4 TH/MM3 (1.8-7.7); BASOPHIL % 0.8 % (0.0-2.0); EOSINOPHIL # 0.2 TH/MM3 (0-0.4); EOSINOPHIL % 4.1 % (0.0-4.0); HEMATOCRIT 23.9 % (35.0-46.0); HEMO FLAGS DIFF FINAL; LYMPH % 6.6 % (9.0-44.0); LYMPHOCYTE # 0.4 TH/MM3 (1.0-4.8); MEAN CELL VOLUME 95.2 FL (80.0-100.0); MEAN CORPUSCULAR HEMOGLOBIN 33.3 PG (27.0-34.0); MONO % 14.1 % (0.0-8.0); NEUT % 74.4 % (16.0-70.0); PLATELET COUNT 257 TH/MM3 (150-450); RED BLOOD COUNT 2.51 MIL/MM3 (4.00-5.30); RED CELL DISTRIBUTION WIDTH 14.3 % (11.6-17.2); WHITE BLOOD COUNT 5.9 TH/MM3 (4.0-11.0)
[2016-11-23] MEDS: CHLORHEXIDINE 0.12% (ORAL KIT) 15 ML CUP MT SCH ×2 (08:00→19:53)
--- NOTE | 2016-11-23 08:41 | HHI.PR ---
Subjective Remarks Patient is alert and cooperative. Denies any CP or SOB, resting comfortably. Lumbar drain in place not draining. afebrile Objective Vital Signs Date Time Temp Pulse Resp B/P Pulse Ox O2 Delivery O2 Flow Rate FiO2 11/23/16 08:00 82 11/23/16 06:00 79 11/23/16 04:00 98.2 79 16 160/74 98 11/23/16 04:00 79 11/23/16 02:00 79 11/23/16 00:00 98.9 78 15 148/66 97 11/23/16 00:00 78 11/22/16 22:00 80 11/22/16 20:04 100 Nasal Cannula 11/22/16 20:00 98.7 82 20 175/79 99 11/22/16 20:00 82 11/22/16 19:00 95 Room Air 11/22/16 18:00 85 11/22/16 16:00 81 11/22/16 16:00 98.2 80 16 148/74 97 11/22/16 14:00 79 11/22/16 12:00 78 11/22/16 12:00 98.2 77 25 164/72 92 11/22/16 10:00 79 11/22/16 09:18 92 I/O 11/22/16 11/22/16 11/22/16 11/23/16 11/23/16 11/23/16 07:00 15:00 23:00 07:00 15:00 23:00 Intake Total 165 ml 398 ml 389 ml 299 ml Output Total 951 ml 870 ml 450 ml 350 ml Balance -786 ml -472 ml -61 ml -51 ml Intake Oral 100 ml 200 ml 240 ml 200 ml IV Total 65 ml 198 ml 149 ml 99 ml Output Urine Total 900 ml 850 ml 450 ml 350 ml Drainage Total 51 ml 20 ml 0 ml 0 ml # Bowel Movements 1 Result Diagram: 11/23/16 0600 11/22/16 0324 Procedures replacement of CSF drain and dural patch 11/12 evacuation of epidural abscess 11/07 had laminectomy 2 weeks ago Objective Remarks GENERAL: Alert and cooperative SKIN: Warm and dry. Lumbar dressing on back HEAD: Normocephalic. EYES: No scleral icterus. No injection or drainage. NECK: Supple, trachea midline. No JVD or lymphadenopathy. CARDIOVASCULAR: Regular rate and rhythm without murmurs, gallops, or rubs. RESPIRATORY: Breath sounds equal bilaterally. No accessory muscle use. GASTROINTESTINAL: Abdomen soft, non-tender, nondistended. MUSCULOSKELETAL: No cyanosis. Generalized edema lumbar drain Medications and IVs Current Medications Medications (Trade) Dose Ordered Sig/Aleja Route Start Time Stop Time Status Last Admin (Tylenol Supp) 650 mg Q4H PRN RECTAL 11/05/16 18:30 11/05/16 18:30 (NS Flush) 2 ml UNSCH PRN IV FLUSH 11/06/16 12:30 11/11/16 08:31 (NS Flush) 2 ml BID IV FLUSH 11/06/16 21:00 11/22/16 20:23 (Tylenol) 650 mg Q6H PRN PO 11/06/16 12:30 11/08/16 16:01 (Zofran Inj) 4 mg Q6H PRN IV 11/06/16 12:30 11/21/16 11:30 (Dulcolax Supp) 10 mg DAILY PRN RECTAL 11/06/16 12:30 Miscellaneous Information 1 Q361D XX 11/06/16 12:30 (Chlorhexidine 2% Cloth) Taper DAILY@04 TOP 11/07/16 04:00 11/03/17 03:59 11/22/16 03:16 (Chlorhexidine 2% Cloth) 3 pack UNSCH PRN TOP 11/06/16 12:30 (Peridex 0.12% Liq) 15 ml BID@08,20 MT 11/07/16 08:00 11/17/16 07:53 (D50w (Vial) Inj) 25 ml UNSCH PRN IV PUSH 11/07/16 04:15 (Glucagon Inj) 1 mg UNSCH PRN OTHER 11/07/16 04:15 Insulin Aspart 1 1 Q6H SQ 11/07/16 06:00 11/20/16 12:29 Potassium Chloride 100 ml @ 50 mls/hr Q2H PRN IV-CENTRAL 11/07/16 08:45 11/07/16 23:30 Potassium Chloride 100 ml @ 50 mls/hr Q2H PRN IV 11/07/16 08:45 Potassium Chloride 100 ml @ 25 mls/hr UNSCH PRN IV-CENTRAL 11/07/16 08:45 Potassium Chloride 100 ml @ 50 mls/hr Q2H PRN IV 11/07/16 08:45 11/17/16 07:53 (Magnesium Sulfate Inj/NS Inj) 100 ml @ 50 mls/hr UNSCH PRN IV 11/07/16 08:45 Magnesium Oxide 800 mg 800 mg UNSCH PRN PO 11/07/16 08:45 11/11/16 08:31 (Magnesium Sulfate Inj/NS Inj) 100 ml @ 50 mls/hr UNSCH PRN IV 11/07/16 08:45 11/18/16 06:47 Potassium Phosphate 2000 mg 2,000 mg Q4H PRN PO 11/07/16 08:45 11/12/16 08:42 (Sodium Phosphate Inj/NS 250 ml Inj) 250 ml @ 42 mls/hr UNSCH PRN IV 11/07/16 08:45 Potassium Phosphate 2000 mg 2,000 mg UNSCH PRN PO/TUBE 11/07/16 08:45 (Potassium Phosphate Inj/NS 250 ml Inj) 260 ml @ 42 mls/hr UNSCH PRN IV 11/07/16 08:45 11/10/16 06:09 (Pepcid Inj) 20 mg Q12H IV PUSH 11/07/16 16:00 11/23/16 03:29 Metoprolol Tartrate 2.5 mg 2.5 mg Q6H PRN IV PUSH 11/08/16 14:45 11/12/16 05:08 (1/2 NS 1000 ml Inj) 1,000 ml @ 0 mls/hr Q0M IV 11/09/16 09:53 11/18/16 20:46 (K-Phos) 500 mg DAILY PO 11/10/16 09:00 11/22/16 09:13 (Trandate Inj) 10 mg Q1H PRN IV 11/13/16 01:30 11/13/16 09:09 Sodium Chloride 2 gm 2 gm BID PO 11/13/16 14:00 11/22/16 20:22 (Ancef 2 Gm Premix) 50 ml @ 100 mls/hr Q8H IV 11/13/16 22:00 11/23/16 05:26 (Lopressor) 12.5 mg Q12HR PO 11/19/16 21:00 11/22/16 20:22 (Pill Splitter) 1 ea UNSCH PRN OTHER 11/19/16 10:15 (Dilaudid Pf Inj) 0.5 mg Q2HR PRN IV PUSH 11/20/16 18:15 11/22/16 23:14 Assessment and Plan Problem List: (1) Spinal epidural abscess Status: Acute Plan: Patient to surgery on an urgent basis on the for evacuation of epidural abscess, wound debridement. Patient found to have pre-existing dural tear with CSF leakage which could not be primarily repaired. Indirect repair of dural tear with blood clot, Gelfoam, thrombin, tissue glue and reclosure of wound site. Dressing on site. Lumbar drain in place not draining. Dressing in place not draining PT eval and consult (2) Sepsis Status: Acute Plan: ID consulted and managing. On antibiotics. WBC stable at 6.9. 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 Patient has been extubated and is on O2 liters NC. HOB at 45 degrees. Started on Diet. (4) Anemia Status: Acute Plan: HGB stable at 8.4 unchanged from yesterday. Monitoring (5) Abnormal blood electrolyte level Status: Resolved Plan: Resolved (6) Hypertension Status: Acute Plan: Blood pressure elevated at 160/74. Will add Norvasc Assessment and Plan Assessment and plan discussed with Dr. Kendrick. Palliative care following Discussed Condition With Nursing Dayanara Barbour Nov 23, 2016 08:41
[2016-11-23] MEDS: SODIUM CHLORIDE 0.9% FLUSH 10 ML FLUSH IV FLUSH SCH ×2 (09:00→20:42)
[2016-11-23 09:07] LABS: BICARBONATE 27.1 MEQ/L (21.0-32.0); POTASSIUM 4.1 MEQ/L (3.5-5.1)
[2016-11-23] MEDS: SODIUM CHLORIDE 1 GRAM TAB PO SCH ×2 (09:20→20:42)
[2016-11-23] MEDS: METOPROLOL TARTRATE 25 MG TAB PO SCH ×2 (09:20→20:42)
[2016-11-23] MEDS: POTASSIUM PHOSPHATE MONOBASIC 500 MG TAB PO SCH (09:21)
[2016-11-23] MEDS: ACETAMINOPHEN 325 MG TAB PO PRN (11:18)
--- NOTE | 2016-11-23 12:56 | HHI.NSPN ---
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 Patient presents to the emergency room on 11/05/16 with decreasing mental status, GI symptoms, and subsequent opening of the wound with wound dehiscence and purulent drainage. 11/07/16: Patient to surgery on an urgent basis for evacuation of epidural abscess , wound debridement. Patient found to have pre-existing dural tear with CSF leakage which could not be primarily repaired. Indirect repair of dural tear with blood clot, Gelfoam, thrombin, tissue glue and reclosure of wound site. 11/08/16: Patient remains intubated, sedated, head of bed flat. Dressing dry and intact 11/09/16: Patient remains intubated. Slight amount of drainage noted from incision. Lumbar subarachnoid drain placed per interventional radiology 11/10/16: Lumbar subarachnoid drain is not functioning well. Discussed with nursing staff 11/11/16: Intermittent drainage from subarachnoid drain. Wound and dressing dry and the morning. 11/12/16: Subarachnoid drain with minimal output. Mild drainage from wound. To OR for: 1. Exploration and debridement previous L4 5 wound site. 2. Revision indirect closure right L4 5 lateral dural tear 3. Placement of lumbar subarachnoid drain, removal previous subarachnoid drain 11/13: pt intubated, POD 1 s/p replacement of lumbar drain with closure of CSF with leak with Dr. Melissa 11/14: intubated, more awake today, moving legs more. 11/15: POD # 3, patient remains intubated, opens eyes spontaneously, following commands, lumbar drain still in place, daughter reports that patient did attempt to reach for ETT yesterday with both upper extremities 11/17/16: Extubated. Sitting up in bed. Lumbar drain remains in place 11/18: Patient states she is doing good. She denies any pain. Lumbar drain still in place. 11/19: Patient states she still doing well. She denied any pain or headache. Her daughter did state that she had a terrible headache yesterday but has not complained of any today. She also stated that her mother is confused and not acting her self and at times is childish, having stuck her tongue out at the daughter. The lumbar drain remains in place. 11/20/16: CT scan was small right parieto-occipital subdural effusion without significant mass effect. Dressing dry. Drain closed the reservoir 11/21/16: Small amount of drainage from the incision. Drain reopened. 11/22/16: Drainage has stopped functioning in the afternoon. Dressing remains dry. 11/23: Patient states that she is doing good but does endorse back pain. Less confused today. (Noah Ford) Labs, Micro, & Vital Signs Results Allergies Coded Allergies Type Severity Reaction Last Updated Verified Penicillin Allergy Severe Rash 11/06/16 Yes 11/21////// 06:00 18:00 06:00 18:00 06:00 18:00 Intake Total 500 ml 667 ml 405 ml 398 ml 688 ml Output Total 500 ml 568 ml 1440 ml 870 ml 800 ml Balance 0 ml 99 ml -1035 ml -472 ml -112 ml Intake Oral 250 ml 480 ml 200 ml 200 ml 440 ml IV Total 250 ml 187 ml 205 ml 198 ml 248 ml Output Urine Total 450 ml 550 ml 1350 ml 850 ml 800 ml Emesis 50 ml Drainage Total 18 ml 90 ml 20 ml 0 ml # Bowel Movements 2 1 Laboratory Tests Test 11/20/16 11/21/16 11/22/16 11/23/16 13:00 03:12 03:24 06:00 Hemoglobin 8.3 GM/DL 7.6 GM/DL 7.6 GM/DL 8.4 GM/DL Hematocrit 24.7 % 22.5 % 22.6 % 23.9 % White Blood Count 5.6 TH/MM3 4.7 TH/MM3 5.9 TH/MM3 Red Blood Count 2.37 MIL/MM3 2.36 MIL/MM3 2.51 MIL/MM3 Mean Corpuscular Volume 95.0 FL 95.9 FL 95.2 FL Mean Corpuscular Hemoglobin 32.0 PG 32.3 PG 33.3 PG Mean Corpuscular Hemoglobin 33.6 % 33.7 % 35.0 % Concent Red Cell Distribution Width 14.1 % 14.4 % 14.3 % Platelet Count 236 TH/MM3 221 TH/MM3 257 TH/MM3 Mean Platelet Volume 8.6 FL 8.6 FL 8.8 FL Neutrophils (%) (Auto) 70.6 % 70.9 % 74.4 % Lymphocytes (%) (Auto) 6.6 % 6.7 % 6.6 % Monocytes (%) (Auto) 17.5 % 15.9 % 14.1 % Eosinophils (%) (Auto) 4.3 % 5.7 % 4.1 % Basophils (%) (Auto) 1.0 % 0.8 % 0.8 % Neutrophils # (Auto) 4.0 TH/MM3 3.4 TH/MM3 4.4 TH/MM3 Lymphocytes # (Auto) 0.4 TH/MM3 0.3 TH/MM3 0.4 TH/MM3 Monocytes # (Auto) 1.0 TH/MM3 0.8 TH/MM3 0.8 TH/MM3 Eosinophils # (Auto) 0.2 TH/MM3 0.3 TH/MM3 0.2 TH/MM3 Basophils # (Auto) 0.1 TH/MM3 0.0 TH/MM3 0.0 TH/MM3 CBC Comment DIFF FINAL DIFF FINAL DIFF FINAL Differential Comment Sodium Level 136 MEQ/L 136 MEQ/L 136 MEQ/L Potassium Level 4.0 MEQ/L 4.1 MEQ/L 4.1 MEQ/L Chloride Level 102 MEQ/L 102 MEQ/L 101 MEQ/L Carbon Dioxide Level 27.1 MEQ/L 27.6 MEQ/L 27.1 MEQ/L Anion Gap 7 MEQ/L 6 MEQ/L 8 MEQ/L Blood Urea Nitrogen 15 MG/DL 12 MG/DL 11 MG/DL Creatinine 0.41 MG/DL 0.38 MG/DL 0.45 MG/DL Estimat Glomerular Filtration 147 ML/MIN 161 ML/MIN 132 ML/MIN Rate Random Glucose 89 MG/DL 93 MG/DL 107 MG/DL Calcium Level 8.4 MG/DL 8.4 MG/DL 8.2 MG/DL Magnesium Level 1.6 MG/DL Total Bilirubin 0.4 MG/DL Aspartate Amino Transf 16 U/L (AST/SGOT) Alanine Aminotransferase 7 U/L (ALT/SGPT) Alkaline Phosphatase 74 U/L Total Protein 5.3 GM/DL Albumin 2.1 GM/DL Prealbumin 12 MG/DL 12 MG/DL Constitutional Vital Signs Date Time Temp Pulse Resp B/P Pulse Ox O2 Delivery O2 Flow Rate FiO2 11/23/16 12:00 98.0 74 18 115/56 96 11/23/16 12:00 76 11/23/16 10:00 77 11/23/16 08:38 99 Nasal Cannula 3.00 11/23/16 08:00 97.8 79 14 149/67 96 11/23/16 08:00 82 11/23/16 06:00 79 11/23/16 04:00 98.2 79 16 160/74 98 11/23/16 04:00 79 11/23/16 02:00 79 11/23/16 00:00 98.9 78 15 148/66 97 11/23/16 00:00 78 11/22/16 22:00 80 11/22/16 20:04 100 Nasal Cannula 11/22/16 20:00 98.7 82 20 175/79 99 11/22/16 20:00 82 11/22/16 19:00 95 Room Air 11/22/16 18:00 85 11/22/16 16:00 81 11/22/16 16:00 98.2 80 16 148/74 97 11/22/16 14:00 79 11/23/16 07:00 Intake Total 1086 ml Output Total 1670 ml Balance -584 ml (Noah Ford) Review of Systems/Exam ROS Neuro: Denies any headache, dizziness, numbness, tingling or weakness. Resp: Denies any shortness of breath. Cardiac: Denies any chest pain or palpitations. GI: Denies any abdominal pain, N/V, or incontinence of bowel. MS: Endorses some back pain. Exam Resp: CTAB w/o W/R/R, equal excursion, non-laboured, on NC. CV: S1S2 w/RRR, w/o M/G/R, cap refill < 2 sec, radial & pedal pulses 2+ bilaterally. Monitor is sinus rhythm w/o any ectopy noted. GI: Abdomen soft, nontender, positive bowel sounds. Extremities: Warm, dry & pink, no deformity or clubbing. Neuro: Awake & alert, oriented to person & time, knows in hospital and able to pick correct one in a list. Sensation to light touch grossly intact to all extremities. Moderate strength to major flexion & extension groups to all extremities. Back: Lumbar drain in place but no longer draining. Dressing intact w/o any spotting. Wound still slightly macerated with 3 small drops of CSF it appears along incision, no significant erythema or edema. Procedure: Sutures cut and removed without any difficulty. Lumbar drain gently pulled and easily removed and appeared intact. Insertion site gently massaged for several minutes but still had clear CSF leaking from it. A Primafore dressing was placed over the site. (Noah Ford) Medications Current Medications Allergies Coded Allergies Type Severity Reaction Last Updated Verified Penicillin Allergy Severe Rash 11/06/16 Yes ///// 06:00 18:00 06:00 18: 06: 18:00 Intake Total 500 ml 667 ml 405 ml 398 ml 688 ml Output Total 500 ml 568 ml 1440 ml 870 ml 800 ml Balance 0 ml 99 ml -1035 ml -472 ml -112 ml Intake Oral 250 ml 480 ml 200 ml 200 ml 440 ml IV Total 250 ml 187 ml 205 ml 198 ml 248 ml Output Urine Total 450 ml 550 ml 1350 ml 850 ml 800 ml Emesis 50 ml Drainage Total 18 ml 90 ml 20 ml 0 ml # Bowel Movements 2 1 Laboratory Tests Test 11/20/16 11/21/16 11/22/16 11/23/16 13:00 03:12 03:24 06:00 Hemoglobin 8.3 GM/DL 7.6 GM/DL 7.6 GM/DL 8.4 GM/DL Hematocrit 24.7 % 22.5 % 22.6 % 23.9 % White Blood Count 5.6 TH/MM3 4.7 TH/MM3 5.9 TH/MM3 Red Blood Count 2.37 MIL/MM3 2.36 MIL/MM3 2.51 MIL/MM3 Mean Corpuscular Volume 95.0 FL 95.9 FL 95.2 FL Mean Corpuscular Hemoglobin 32.0 PG 32.3 PG 33.3 PG Mean Corpuscular Hemoglobin 33.6 % 33.7 % 35.0 % Concent Red Cell Distribution Width 14.1 % 14.4 % 14.3 % Platelet Count 236 TH/MM3 221 TH/MM3 257 TH/MM3 Mean Platelet Volume 8.6 FL 8.6 FL 8.8 FL Neutrophils (%) (Auto) 70.6 % 70.9 % 74.4 % Lymphocytes (%) (Auto) 6.6 % 6.7 % 6.6 % Monocytes (%) (Auto) 17.5 % 15.9 % 14.1 % Eosinophils (%) (Auto) 4.3 % 5.7 % 4.1 % Basophils (%) (Auto) 1.0 % 0.8 % 0.8 % Neutrophils # (Auto) 4.0 TH/MM3 3.4 TH/MM3 4.4 TH/MM3 Lymphocytes # (Auto) 0.4 TH/MM3 0.3 TH/MM3 0.4 TH/MM3 Monocytes # (Auto) 1.0 TH/MM3 0.8 TH/MM3 0.8 TH/MM3 Eosinophils # (Auto) 0.2 TH/MM3 0.3 TH/MM3 0.2 TH/MM3 Basophils # (Auto) 0.1 TH/MM3 0.0 TH/MM3 0.0 TH/MM3 CBC Comment DIFF FINAL DIFF FINAL DIFF FINAL Differential Comment Sodium Level 136 MEQ/L 136 MEQ/L 136 MEQ/L Potassium Level 4.0 MEQ/L 4.1 MEQ/L 4.1 MEQ/L Chloride Level 102 MEQ/L 102 MEQ/L 101 MEQ/L Carbon Dioxide Level 27.1 MEQ/L 27.6 MEQ/L 27.1 MEQ/L Anion Gap 7 MEQ/L 6 MEQ/L 8 MEQ/L Blood Urea Nitrogen 15 MG/DL 12 MG/DL 11 MG/DL Creatinine 0.41 MG/DL 0.38 MG/DL 0.45 MG/DL Estimat Glomerular Filtration 147 ML/MIN 161 ML/MIN 132 ML/MIN Rate Random Glucose 89 MG/DL 93 MG/DL 107 MG/DL Calcium Level 8.4 MG/DL 8.4 MG/DL 8.2 MG/DL Magnesium Level 1.6 MG/DL Total Bilirubin 0.4 MG/DL Aspartate Amino Transf 16 U/L (AST/SGOT) Alanine Aminotransferase 7 U/L (ALT/SGPT) Alkaline Phosphatase 74 U/L Total Protein 5.3 GM/DL Albumin 2.1 GM/DL Prealbumin 12 MG/DL 12 MG/DL Procedure Category Date Status Time Hydromorphone Pf Inj MED 11/20/16 In Process (Dilaudid Pf Inj) 18:15 Pt Request For Service PT 11/20/16 Logged 18:04 Activity Oob With KWAN 11/20/16 In Process Assistance 18:04 ^ Drain KWAN 11/20/16 In Process 18:04 Complete Blood Count LAB 11/22/16 Complete With Diff 06:00 Magnesium (Mg) LAB 11/22/16 Complete 06:00 Prealbumin LAB 11/22/16 Complete 06:00 Comprehensive LAB 11/22/16 Complete Metabolic Panel 06:00 Vitamin D 1, 25 LAB 11/22/16 In Process Dihydroxy 06:00 Cap,Shampoo/Cond SPD 11/21/16 Logged Rinse Free Ea 14:03 ^ Drain KWAN 11/21/16 In Process 17:22 Prealbumin LAB 11/23/16 Complete 06:00 Complete Blood Count LAB 11/23/16 Complete With Diff 06:00 Basic Metabolic Panel LAB 11/23/16 Complete (Bmp) 06:00 Amlodipine (Norvasc) MED 11/23/16 In Process 09:00 Vital Signs Date Time Temp Pulse Resp B/P Pulse Ox O2 Delivery O2 Flow Rate FiO2 11/23/16 12:00 98.0 74 18 115/56 96 11/23/16 12:00 76 11/23/16 10:00 77 11/23/16 08:38 99 Nasal Cannula 3.00 11/23/16 08:00 97.8 79 14 149/67 96 11/23/16 08:00 82 11/23/16 06:00 79 11/23/16 04:00 98.2 79 16 160/74 98 11/23/16 04:00 79 11/23/16 02:00 79 11/23/16 00:00 98.9 78 15 148/66 97 11/23/16 00:00 78 11/22/16 22:00 80 11/22/16 20:04 100 Nasal Cannula 11/22/16 20:00 98.7 82 20 175/79 99 11/22/16 20:00 82 11/22/16 19:00 95 Room Air 11/22/16 18:00 85 11/22/16 16:00 81 11/22/16 16:00 98.2 80 16 148/74 97 11/22/16 14:00 79 11/22/16 12:00 78 11/22/16 12:00 98.2 77 25 164/72 92 11/22/16 10:00 79 11/22/16 09:18 92 11/22/16 08:00 98.5 85 15 151/66 95 11/22/16 08:00 83 11/22/16 07:00 94 Room Air 11/22/16 06:00 82 11/22/16 04:00 98.4 75 18 139/62 98 11/22/16 04:00 75 11/22/16 02:00 83 11/22/16 00:00 83 11/22/16 00:00 98.2 83 14 127/66 100 11/21/16 22:00 85 11/21/16 21:00 98 Nasal Cannula 2.00 11/21/16 20:14 94 21 11/21/16 20:00 97.8 87 22 123/57 94 11/21/16 20:00 87 11/21/16 19:00 97 Room Air 11/21/16 18:00 84 11/21/16 17:43 Room Air 11/21/16 16:52 16 11/21/16 16:00 98.2 82 18 124/61 97 11/21/16 16:00 82 11/21/16 14:00 84 11/21/16 12:00 78 11/21/16 12:00 97.9 78 20 120/61 95 11/21/16 10:06 97 Nasal Cannula 0.50 11/21/16 10:00 74 11/21/16 08:00 91 11/21/16 08:00 Nasal Cannula 1.00 30 11/21/16 08:00 98.2 91 15 136/66 95 11/21/16 06:00 89 11/21/16 04:00 98.8 92 16 132/76 92 11/21/16 04:00 92 11/21/16 04:00 92 Nasal Cannula 2.00 11/21/16 02:00 88 11/21/16 00:00 99.2 89 24 126/62 94 11/21/16 00:00 92 11/20/16 23:00 94 Room Air 11/20/16 22:00 104 11/20/16 22:00 95 Nasal Cannula 2.00 11/20/16 20:00 105 11/20/16 20:00 98.1 109 12 129/60 93 11/20/16 19:25 95 11/20/16 19:00 93 Nasal Cannula 3.00 11/20/16 18:00 100 11/20/16 16:00 101 11/20/16 16:00 99.2 101 25 125/59 98 11/20/16 14:00 96 (Noah Ford) Medical Decision Making MDM Remarks Status post repeat debridement lumbar wound dehiscence, replacement lumbar subarachnoid drain, indirect closure of CSF leak and dural tear on 11/12/16 Lumbar drain non-functional Confusion improved (Noah Ford) Plan Plan Remarks Discussed plan of care with patient & family Continue neuro checks Will d/c lumbar drain, then BR for the next 6 hrs Keep patient off of back Mobilise to chair w/assistance Will consider a heat lamp to lumbar surgical incision for 1 hour 4x/day to dry maceration Will discuss with Dr Melissa (Noah Ford) Attending Statement I have personally seen and examined the patient on the date of this note. Pertinent documentation and study results have been reviewed by the undersigned. I have personally developed the treatment plan and performed medical decision making. Agree with findings, exam, and treatment plan as noted above. No active drainage from the incision. Operative site checked again just before midnight for 18/12/16 and discussed with nursing staff. The drain is been discontinued with no active leakage from the drain site. Dressing changed earlier this evening is totally dry. However there remained some moisture, maceration of the tissues at the incision site. The patient does have some skin folds which all over the incision site. Discussed at length with nursing staff. We will try to leave the incision site open to air with retraction of the skin fold to avoid moisture trapping. Nucleotide study canceled due to drain malfunction and lack of evidence of active CSF leakage. (Pratik Melissa MD) Noah Ford Nov 23, 2016 12:56 Pratik Melissa MD Nov 24, 2016 00:16
--- NOTE | 2016-11-23 14:56 | HHI.HCPN ---
Reason for visit a. To assist with evaluation and management of symptoms including: pain, weakness. b. To assist medical decision maker(s) with: better understanding of current medical conditions; weighing benefits/burdens of medical treatment options; making medical treatment decisions. . Subjective/Interval History Patient seen and examined in ICU. Sister in law at bedside. 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 She remains off mech vent. Lumbar drain was removed. She reports some pain in the back area, not visualized today as patient was on the bedpan. Afebrile. Vital signs and labs stable. Appetite fair. LBM 11/23/16. . Family/friend interactions See interval note. . Advance Directives Living Will: Never completed Health Care Surrogate: Never completed Durable Power of Bag Patcher: Never completed Advance Directive Specifics Health Care Surrogate(s): Patient is currently incapacitated to make her own health care decisions. According to [place] statutes health care proxy decision-making falls to the patient's spouse. He is supported by their daughter, Anna. . Significant change in goals: FULL CODE. Desires continued aggressive care and rehab. . Objective Vital Signs Date Time Temp Pulse Resp B/P Pulse Ox O2 Delivery O2 Flow Rate FiO2 11/23/16 12:00 98.0 74 18 115/56 96 11/23/16 12:00 76 11/23/16 10:00 77 11/23/16 08:38 99 Nasal Cannula 3.00 11/23/16 08:00 97.8 79 14 149/67 96 11/23/16 08:00 82 11/23/16 06:00 79 11/23/16 04:00 98.2 79 16 160/74 98 11/23/16 04:00 79 11/23/16 02:00 79 11/23/16 00:00 98.9 78 15 148/66 97 11/23/16 00:00 78 11/22/16 22:00 80 11/22/16 20:04 100 Nasal Cannula 11/22/16 20:00 98.7 82 20 175/79 99 11/22/16 20:00 82 11/22/16 19:00 95 Room Air 11/22/16 18:00 85 11/22/16 16:00 81 11/22/16 16:00 98.2 80 16 148/74 97 Intake & Output 11/23/16 11/23/16 07:00 19:00 Intake Total 688 ml Output Total 800 ml Balance -112 ml Intake Oral 440 ml IV Total 248 ml Output Urine Total 800 ml Drainage Total 0 ml Physical Exam CONSTITUTIONAL/GENERAL: This is an adequately nourished patient, in no acute distress. TUBES/LINES/DRAINS: right chest port, PIV, Jean-Baptiste, SCD's. SKIN: Ecchymoses on upper extremities. No wounds seen anteriorly. Skin temperature appropriate. Not diaphoretic. EYES: Pupils equal and reactive. No scleral icterus or injection. CARDIOVASCULAR: Regular rate and rhythm. Systolic murmur noted left sternal border. RESPIRATORY/CHEST: Symmetric, unlabored respirations. Clear breath sounds. GASTROINTESTINAL: Abdomen soft, mildly distended. No guarding. Bowel sounds active. GENITOURINARY: Without palpable bladder distension. Jean-Baptiste catheter in place. MUSCULOSKELETAL: Extremities with trace edema. No mottling or clubbing. NEUROLOGICAL: Awake and alert, able to wiggle toes, follows commands. . Diagnostic Tests Laboratory Laboratory Tests Test 11/21/16 11/22/16 11/23/16 03:12 03:24 06:00 White Blood Count 5.6 TH/MM3 4.7 TH/MM3 5.9 TH/MM3 (4.0-11.0) (4.0-11.0) (4.0-11.0) Red Blood Count 2.37 MIL/MM3 2.36 MIL/MM3 2.51 MIL/MM3 (4.00-5.30) (4.00-5.30) (4.00-5.30) Hemoglobin 7.6 GM/DL 7.6 GM/DL 8.4 GM/DL (11.6-15.3) (11.6-15.3) (11.6-15.3) Hematocrit 22.5 % 22.6 % 23.9 % (35.0-46.0) (35.0-46.0) (35.0-46.0) Mean Corpuscular Volume 95.0 FL 95.9 FL 95.2 FL (80.0-100.0) (80.0-100.0) (80.0-100.0) Mean Corpuscular Hemoglobin 32.0 PG 32.3 PG 33.3 PG (27.0-34.0) (27.0-34.0) (27.0-34.0) Mean Corpuscular Hemoglobin 33.6 % 33.7 % 35.0 % Concent (32.0-36.0) (32.0-36.0) (32.0-36.0) Red Cell Distribution Width 14.1 % 14.4 % 14.3 % (11.6-17.2) (11.6-17.2) (11.6-17.2) Platelet Count 236 TH/MM3 221 TH/MM3 257 TH/MM3 (150-450) (150-450) (150-450) Mean Platelet Volume 8.6 FL 8.6 FL 8.8 FL (7.0-11.0) (7.0-11.0) (7.0-11.0) Neutrophils (%) (Auto) 70.6 % 70.9 % 74.4 % (16.0-70.0) (16.0-70.0) (16.0-70.0) Lymphocytes (%) (Auto) 6.6 % 6.7 % 6.6 % (9.0-44.0) (9.0-44.0) (9.0-44.0) Monocytes (%) (Auto) 17.5 % 15.9 % 14.1 % (0.0-8.0) (0.0-8.0) (0.0-8.0) Eosinophils (%) (Auto) 4.3 % (0.0-4.0) 5.7 % (0.0-4.0) 4.1 % (0.0-4.0) Basophils (%) (Auto) 1.0 % (0.0-2.0) 0.8 % (0.0-2.0) 0.8 % (0.0-2.0) Neutrophils # (Auto) 4.0 TH/MM3 3.4 TH/MM3 4.4 TH/MM3 (1.8-7.7) (1.8-7.7) (1.8-7.7) Lymphocytes # (Auto) 0.4 TH/MM3 0.3 TH/MM3 0.4 TH/MM3 (1.0-4.8) (1.0-4.8) (1.0-4.8) Monocytes # (Auto) 1.0 TH/MM3 0.8 TH/MM3 0.8 TH/MM3 (0-0.9) (0-0.9) (0-0.9) Eosinophils # (Auto) 0.2 TH/MM3 0.3 TH/MM3 0.2 TH/MM3 (0-0.4) (0-0.4) (0-0.4) Basophils # (Auto) 0.1 TH/MM3 0.0 TH/MM3 0.0 TH/MM3 (0-0.2) (0-0.2) (0-0.2) CBC Comment DIFF FINAL DIFF FINAL DIFF FINAL Differential Comment Sodium Level 136 MEQ/L 136 MEQ/L 136 MEQ/L (136-145) (136-145) (136-145) Potassium Level 4.0 MEQ/L 4.1 MEQ/L 4.1 MEQ/L (3.5-5.1) (3.5-5.1) (3.5-5.1) Chloride Level 102 MEQ/L 102 MEQ/L 101 MEQ/L (98-107) (98-107) (98-107) Carbon Dioxide Level 27.1 MEQ/L 27.6 MEQ/L 27.1 MEQ/L (21.0-32.0) (21.0-32.0) (21.0-32.0) Anion Gap 7 MEQ/L (5-15) 6 MEQ/L (5-15) 8 MEQ/L (5-15) Blood Urea Nitrogen 15 MG/DL (7-18) 12 MG/DL (7-18) 11 MG/DL (7-18) Creatinine 0.41 MG/DL 0.38 MG/DL 0.45 MG/DL (0.50-1.00) (0.50-1.00) (0.50-1.00) Estimat Glomerular Filtration 147 ML/MIN 161 ML/MIN 132 ML/MIN Rate (>89) (>89) (>89) Random Glucose 89 MG/DL 93 MG/DL 107 MG/DL (74-106) (74-106) (74-106) Calcium Level 8.4 MG/DL 8.4 MG/DL 8.2 MG/DL (8.5-10.1) (8.5-10.1) (8.5-10.1) Magnesium Level 1.6 MG/DL (1.5-2.5) Total Bilirubin 0.4 MG/DL (0.2-1.0) Aspartate Amino Transf 16 U/L (15-37) (AST/SGOT) Alanine Aminotransferase 7 U/L (10-53) (ALT/SGPT) Alkaline Phosphatase 74 U/L (45-117) Total Protein 5.3 GM/DL (6.4-8.2) Albumin 2.1 GM/DL (3.4-5.0) Prealbumin 12 MG/DL 12 MG/DL (20-40) (20-40) Result Diagram: 11/23/1659911/23/16599 Imaging Last Impressions Head CT 11/20/16599 Signed Impressions: Service Date/Time: Sunday, November 20, 2016 08:56 - CONCLUSION: 1. Suspected small persistent foci of hemorrhage in the lateral ventricles. 2. 4 mm subdural collection over the right parietal lobe. Some chronic subdural fluid or more acute mild subdural hemorrhage in an anemic patient could have this appearance. This finding is not clearly demonstrated on the prior MRI examination. Significant mass effect is not seen. Naveed Michael MD Chest X-Ray 11/15/16599 Signed Impressions: Service Date/Time: Tuesday, November 15, 2016 04:15 - CONCLUSION: Tubes and catheters are in good position. Mild pulmonary vascular congestion persists Jimi Schrader MD Thoracic Spine MRI 11/12/16 Signed Impressions: Service Date/Time: Saturday, November 12, 2016 11:46 - CONCLUSION: 1. Degenerative changes but no canal or foraminal narrowing. 2. No evidence for abscess. 3. T5 and T2 vertebral body lesions are noted. Metastatic deposits are not excluded. 4. Extensive subcutaneous edema of the upper thorax and cervical region. 5. Large bilateral pleural effusions. Jesús Anderson MD Lumbar Spine X-Ray 11/12/16 Signed Impressions: Service Date/Time: Saturday, November 12, 2016 21:53 - CONCLUSION: 1. Postsurgical changes as above. Reed George MD Lumbar Spine MRI 4/14/17 0000 Signed Impressions: Service Date/Time: Saturday, November 12, 2016 11:46 - CONCLUSION: 1. Complex fluid collection appears slightly increased in sagittal dimension with rim enhancement and marked surrounding edema and enhancement of the paraspinal soft tissues. This is consistent with the clinical history of abscess. 2. There is severe associated spinal stenosis secondary to mass effect from the fluid collection. Jesús Anderson MD Cervical Spine MRI 11/12/16 0000 Signed Impressions: Service Date/Time: Saturday, November 12, 2016 11:46 - CONCLUSION: 1. No evidence for abscess. 2. Nonspecific enhancing lesion of the T2 vertebral body, as well as diffuse decreased T1 signal involving the C7 pedicle and transverse process. The possibility of metastatic disease should be excluded. 3. Severe canal stenosis with cord compression at C5-6 and moderate canal stenosis at C4-5. Jesús Anderson MD ADDENDUM: There is extensive subcutaneous edema of the cervical and upper thoracic subcutaneous tissues posteriorly. Jesús Anderson MD Brain MRI 11/12/16 0000 Signed Impressions: Service Date/Time: Saturday, November 12, 2016 11:46 - CONCLUSION: 1. There are no findings to indicate acute infarct. 2. Abnormal signal layering within the occipital horns bilaterally likely representing a small amount of blood products. This finding is new compared to the prior CT. 3. Chronic changes include generalized atrophy and periventricular white matter change characteristic of chronic microvascular ischemia. Naveed Smith MD Lumbar Puncture Fluoroscopy 11/09/16 0000 Signed Impressions: Service Date/Time: Wednesday, November 09, 2016 16:21 - CONCLUSION: Uncomplicated lumbar drain placement as above. Naveed Rosenthal MD Entire Spine MRI 11/06/16 0000 Signed Impressions: Service Date/Time: Sunday, November 06, 2016 14:28 - CONCLUSION: 1. As noted on the MRI lumbar spine there is a complex fluid collection in the soft tissues posterior to the spinal canal at the level of L4 measuring 3.4 x 3.1 x 3.9 cm suggestive of a postoperative hematoma/seroma. An abscess cannot be excluded. 2. Abnormal signal in the body of T2 suspicious for bony metastatic disease. 3. Status post fusion of C6-7. 4. Broad-based bulging with disc osteophyte complexes at C4-5 and C5-6. Possible myelopathy in the cord at this level. Patrick J. Siragusa, MD Lumbar Spine CT 11/05/16 0000 Signed Impressions: Service Date/Time: Saturday, November 05, 2016 04:14 - CONCLUSION: 1. Postop laminectomy at L4 level with fluid within the operative bed and a few scattered gas bubbles may be postsurgical change and possibly resolving hematoma, however abscess is not excluded. No definite signs of osteomyelitis. 2. Neural foramina compromise left L2-L3, bilateral L4-L5. 3. Bilateral masses compromise L5-S1. 4. Residual slight thecal sac stenosis may be present at L3-4 and L4-5. Deangelo Monsivais MD Abdomen/Pelvis CT 11/05/16 0000 Signed Impressions: Service Date/Time: Saturday, November 05, 2016 16:12 - CONCLUSION: 1. There is residual IV contrast within the kidneys and bladder. 2. There are no findings to indicate a bowel obstruction. 3. The patient is post hysterectomy. Hussain Sandoval MD . Procedures * 11/07/16 - Intubation * 11/07/16: debridement lumbar wound dehiscence, evacuation lumbar epidural abscess, indirect repair pre-existing dural tear Dr. Melissa . Assessment and Plan Disease Oriented Problem List: (1) Spinal epidural abscess (2) Postoperative CSF leak (3) Respiratory failure (4) Postoperative wound dehiscence (5) Sepsis (6) Anemia (7) Dural tear (8) Weakness Symptom Scale: (1) Back pain 0-10 Scale: 5 (2) Weakness 0-10 Scale: Unable to quantify Pertinent Non-Medical Issues Psychosocial: . Spiritual: Hindu clif. Legal: patient currently incapacitated. No written advance directives. According to [place] statutes health care proxy decision-making falls to patient 's spouse. He is supported by their daughter Anna. Ethical issues impacting care: No known concerns at this time. . Important Contacts * Khari Leos, spouse: [phone] * Anna Poon, daughter: [phone] . Prognosis In review of notes neurosurgery, therapeutic strategy lead and infectious disease feel it will be difficult to completely treat this infection due to chances of recurrence secondary to CSF leak. Neurosurgery, Dr. Melissa note indicates he advised the family "that it would be best to continue with the head of bed flat and intubation and sedation to keep her comfortable and avoid straining to allow the CSF leak to seal. She will be monitored closely for signs of recurrent infection or CSF leakage. However further MRI imaging may be problematic, as it will be difficult to determine if she has recurrent abscess versus blood clot formation which is been allowed to form and packing material which has been placed to try to seal the CSF leak." . Code Status: Full Code Plan * Decision Maker: patient is currently capacitated. No written advance directives. According to [place] statutes health care proxy decision-making falls to patient's spouse. He is supported by their daughter Anna. * FULL CODE * Goals remain aggressive. Patient wants rehab. * SYMPTOMS: Pain: unable to quantify or qualify pain, pain secondary to epidural abscess, recent surgeries, bedbound status and history of chronic back pain. 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 Weakness: secondary to epidural abscess, infection, dural tear s/p surgery again 11/13/16. Continue supine position at this time per neurosurgery recommendations. Dyspnea: currently sedated on mechanical ventilation. No new medication recommendations at this time. * Palliative care will continue to follow throughout hospital course to assist with symptom management and clarification of goals as needed. . Attestation To help prompt me to consider important information that might be impacting today's encounter and assessment, information from prior notes written by myself or my colleagues may have been "brought forward" into today's note. My signature on this note, however, is an attestation that I personally performed the exam, history, and/or decision-making noted today, and, unless otherwise indicated, the interactions with patient, family, and staff as well as the review of records all occurred today. I also attest that the listed assessment and stated plan reflect my best clinical judgment today based on the combination of historical information, prior notes, and today's exam/ interactions. When time spent is documented, it refers only to time spent today by the signer, or if indicated, combined time spent today by collaborating physician/nurse practitioner. . CAMRYN ZEE Nov 23, 2016 14:56
[2016-11-23] MEDS: CHLORHEXIDINE GLUCONATE 2 % 1 PACK (2 CLOTHS) TOP SCH (19:54)
[2016-11-24] VITALS (14 sets, daily range): BP systolic 117–160; BP diastolic 56–99; PULSE 74–101; RESP 14–22; TEMP 98–99.2; O2SAT 95–100
[2016-11-24] MEDS: ceFAZolin 2 GM PREMIX 50 ML IV SCH ×3 (04:29→20:45)
[2016-11-24] MEDS: FAMOTIDINE 20 MG/2 ML VIAL IV PUSH SCH ×2 (04:29→16:15)
[2016-11-24] MEDS: INSULIN ASPART SUPPLEMENTAL SCALE SQ SCH ×3 (05:12→18:00)
[2016-11-24] MEDS: CHLORHEXIDINE 0.12% (ORAL KIT) 15 ML CUP MT SCH ×2 (08:00→20:00)
[2016-11-24] MEDS: SODIUM CHLORIDE 0.9% FLUSH 10 ML FLUSH IV FLUSH SCH ×2 (08:20→20:45)
[2016-11-24] MEDS: METOPROLOL TARTRATE 25 MG TAB PO SCH ×2 (08:20→20:43)
[2016-11-24] MEDS: POTASSIUM PHOSPHATE MONOBASIC 500 MG TAB PO SCH (08:20)
--- NOTE | 2016-11-24 09:09 | HHI.IDPN ---
Subjective Subjective Remarks is an 86 y/o CF with PMHx of endometrial cancer s/p chemotherapy 5 yrs back as well as surgery. Patient reportedly had recurrence with endometrial cancer involving multiple bones of the body. She underwent 2nd set of chemotherapy for metastatic endometrial cancer. Her [facility] oncologist is Dr.Kelly Marin. Patient has a port used for chemotherapy. Most recent PET scan as reported by daughter revealed multiple bony metastasis to include skull, and right upper arm. She underwent an L4-L5 [facility] about 2 weeks [facility]. Prior to her surgery , the patient was extremely physically active without any ambulation difficulties. She did not have any bowel bladder issues. With this background patient presents to the ED with complains of nausea, vomiting, low back pain, and chills on 11/05/2016. She was doing well initially but over the past several days complained of increased nausea, vomiting, increased low back pain, and chills. Patient's daughter reports discharge from the surgical site beginning the day prior to admission. Upon discussion with RN , patient has been wetting her bed but not voiding. No bleeding. No incontinence of bowel although suspicious bladder overflow secondary to retention. Lumbar CT scan revealed postop laminectomy L4 with fluid and scattered bubbles possibly resolving hematoma, abscess could not be excluded. ID and Critical care medicine is consulted for patients noted sepsis, and progressive weakness bilateral lower extremities. Overnight events reviewed. No fever No rash No diarrhea Extubated. Laying on side. Plan to continue monitor in ICU for now per . Not on pressors. Wiggles bilateral LE toes. Antibiotics Ancef IV Lines Line sites with no e.o infection. Past Medical History reviewed. Allergies: Coded Allergies: Penicillin (Verified Allergy, Severe, Rash, 11/06/16) Rash 2 decades back. Objective . Vital Signs Date Time Temp Pulse Resp B/P Pulse Ox O2 Delivery O2 Flow Rate FiO2 11/24/16 08:00 93 11/24/16 08:00 98.5 93 20 160/69 97 11/24/16 06:00 91 11/24/16 04:00 92 11/24/16 04:00 98.5 92 22 157/99 97 11/24/16 02:00 90 11/24/16 00:00 91 11/24/16 00:00 98.0 91 21 148/70 98 4/25/17 22:00 87 11/23/16 21:07 97 Nasal Cannula 2.50 11/23/16 20:00 82 11/23/16 20:00 98.8 82 22 127/60 96 11/23/16 18:00 80 11/23/16 16:00 98.8 76 17 132/63 99 11/23/16 16:00 79 11/23/16 14:00 79 11/23/16 12:00 98.0 74 18 115/56 96 11/23/16 12:00 76 11/23/16 10:00 77 11/23/16 11/23/16 11/24/16 15:00 23:00 07:00 Intake Total 344 ml 360 ml 439 ml Output Total 550 ml 450 ml 400 ml Balance -206 ml -90 ml 39 ml Intake Oral 200 ml 240 ml 240 ml IV Total 144 ml 120 ml 199 ml Output Urine Total 550 ml 450 ml 400 ml # Bowel Movements 1 . Laboratory Tests Test 11/23/16 06:00 White Blood Count 5.9 TH/MM3 Red Blood Count 2.51 MIL/MM3 Hemoglobin 8.4 GM/DL Hematocrit 23.9 % Mean Corpuscular Volume 95.2 FL Mean Corpuscular Hemoglobin 33.3 PG Mean Corpuscular Hemoglobin 35.0 % Concent Red Cell Distribution Width 14.3 % Platelet Count 257 TH/MM3 Mean Platelet Volume 8.8 FL Neutrophils (%) (Auto) 74.4 % Lymphocytes (%) (Auto) 6.6 % Monocytes (%) (Auto) 14.1 % Eosinophils (%) (Auto) 4.1 % Basophils (%) (Auto) 0.8 % Neutrophils # (Auto) 4.4 TH/MM3 Lymphocytes # (Auto) 0.4 TH/MM3 Monocytes # (Auto) 0.8 TH/MM3 Eosinophils # (Auto) 0.2 TH/MM3 Basophils # (Auto) 0.0 TH/MM3 CBC Comment DIFF FINAL Differential Comment Laboratory Tests Test 11/23/16 06:00 Sodium Level 136 MEQ/L Potassium Level 4.1 MEQ/L Chloride Level 101 MEQ/L Carbon Dioxide Level 27.1 MEQ/L Anion Gap 8 MEQ/L Blood Urea Nitrogen 11 MG/DL Creatinine 0.45 MG/DL Estimat Glomerular Filtration 132 ML/MIN Rate Random Glucose 107 MG/DL Calcium Level 8.2 MG/DL Prealbumin 12 MG/DL Imaging Last Impressions Chest X-Ray 11/07/16 0600 Signed Impressions: Service Date/Time: Monday, November 07, 2016 04:40 - CONCLUSION: Bibasilar and left suprahilar areas of linear density likely related to atelectasis or mild consolidation. There is a possible bone lesion in the proximal right humerus. Naveed Michael MD Lumbar Spine MRI 11/06/16 0000 Signed Impressions: Service Date/Time: Sunday, November 06, 2016 14:28 - CONCLUSION: 1. Postsurgical changes with a hematoma/seroma is noted in the posterior soft tissues just behind the spinal canal at the levels of L3-4 and L4-5. Abscess cannot be excluded. This postoperative finding measures 3.4 x 1.3 x 3.9 cm. Its creating an extra dural defect on the posterior aspect of the spinal canal. This along with broad-based bulging at L3-4 and L4-5 is causing moderate to prominent spinal canal stenosis. 2. There is primary bony degenerative changes of the lumbar spine with some disc space narrowing at L2-3 and L3-4. 3. Bilateral facet arthritis at multiple levels. Patrick Chavez MD Entire Spine MRI 11/06/16 Signed Impressions: Service Date/Time: Sunday, November 06, 2016 14:28 - CONCLUSION: 1. As noted on the MRI lumbar spine there is a complex fluid collection in the soft tissues posterior to the spinal canal at the level of L4 measuring 3.4 x 3.1 x 3.9 cm suggestive of a postoperative hematoma/seroma. An abscess cannot be excluded. 2. Abnormal signal in the body of T2 suspicious for bony metastatic disease. 3. Status post fusion of C6-7. 4. Broad-based bulging with disc osteophyte complexes at C4-5 and C5-6. Possible myelopathy in the cord at this level. Patrick Chavez MD Lumbar Spine CT 11/05/16 Signed Impressions: Service Date/Time: Saturday, November 05, 2016 04:14 - CONCLUSION: 1. Postop laminectomy at L4 level with fluid within the operative bed and a few scattered gas bubbles may be postsurgical change and possibly resolving hematoma, however abscess is not excluded. No definite signs of osteomyelitis. 2. Neural foramina compromise left L2-L3, bilateral L4-L5. 3. Bilateral masses compromise L5-S1. 4. Residual slight thecal sac stenosis may be present at L3-4 and L4-5. Deangelo Monsivais MD Head CT 11/05/16 0000 Signed Impressions: Service Date/Time: Saturday, November 05, 2016 16:08 - CONCLUSION: 1. No acute intracranial abnormality. Hussain Sandoval MD Abdomen/Pelvis CT 11/05/16 0000 Signed Impressions: Service Date/Time: Saturday, November 05, 2016 16:12 - CONCLUSION: 1. There is residual IV contrast within the kidneys and bladder. 2. There are no findings to indicate a bowel obstruction. 3. The patient is post hysterectomy. Hussain Sandoval MD Physical Exam GENERAL: This is a well-nourished, well-developed patient, in no apparent distress. SKIN: No rashes, ecchymoses or lesions. Cool and dry. HEAD: Atraumatic. Normocephalic. No temporal or scalp tenderness. EYES: Pupils equal round and reactive. Extraocular motions intact. No scleral icterus. No injection or drainage. ENT: Nose without bleeding, purulent drainage or septal hematoma. NECK: Intubated CARDIOVASCULAR: RRR RESPIRATORY: Clear to auscultation. Breath sounds equal bilaterally. GASTROINTESTINAL: Abdomen soft, nondistended. Surgical site not examined. Patient in head down position. MUSCULOSKELETAL: Extremities without clubbing, cyanosis, or edema. No joint tenderness, effusion, or edema noted. No calf tenderness. Negative Homans sign bilaterally. NEUROLOGICAL: Opens eyes, wiggles bilateral toes. Psych: cooperative IV line sites with no e.o infection. Assessment & Plan Remarks Sepsis present on admission (fever, tachycardia, WBC elevation, Encephalopathy) Surgical site infection at Lumbar Laminectomy (Surgery done at [facility]) Staph epidermidis bacteremia: likely contaminant as it was not present on admission and is not persistent. 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 Acute metabolic encephalopathy: sepsis, ? acute meningitis secondary to spine surgical site infection, epidural abscess Acute renal failure: prerenal, acute urinary retention. Endometrial cancer with mets to multiple bones. PCN allergy clarified. Aspiration risk. Hypoalbuminemia Recs: Continue Ancef IV Follow clinically. Will need 8-12 weeks of IV antibiotics from date of last surgery (will d.w if any plans for further surgeries and drain removal etc.) Recommend CBC with diff, CMP, CRP once a week Will follow prn. When ready for discharge please call me for infusion orders etc DC planning. d/w Nichole Todd MD Nov 24, 2016 09:09
--- NOTE | 2016-11-24 11:40 | HHI.PR ---
Subjective Remarks Patient is alert and cooperative. Denies any CP or SOB, resting comfortably. Lumbar drain removed. Afebrile Objective Vital Signs Date Time Temp Pulse Resp B/P Pulse Ox O2 Delivery O2 Flow Rate FiO2 11/24/16 10:00 74 11/24/16 08:00 93 11/24/16 08:00 98.5 93 20 160/69 97 11/24/16 07:00 99 Nasal Cannula 2.50 11/24/16 06:00 91 11/24/16 04:00 92 11/24/16 04:00 98.5 92 22 157/99 97 11/24/16 02:00 90 11/24/16 00:00 91 11/24/16 00:00 98.0 91 21 148/70 98 11/23/16 22:00 87 11/23/16 21:07 97 Nasal Cannula 2.50 11/23/16 20:00 82 11/23/16 20:00 98.8 82 22 127/60 96 11/23/16 18:00 80 11/23/16 16:00 98.8 76 17 132/63 99 11/23/16 16:00 79 11/23/16 14:00 79 11/23/16 12:00 98.0 74 18 115/56 96 11/23/16 12:00 76 I/O 11/23/16 11/23/16 11/23/16 11/24/16 11/24/16 11/24/16 07:00 15:00 23:00 07:00 15:00 23:00 Intake Total 299 ml 344 ml 360 ml 439 ml Output Total 350 ml 550 ml 450 ml 400 ml Balance -51 ml -206 ml -90 ml 39 ml Intake Oral 200 ml 200 ml 240 ml 240 ml IV Total 99 ml 144 ml 120 ml 199 ml Output Urine Total 350 ml 550 ml 450 ml 400 ml Drainage Total 0 ml # Bowel Movements 1 Result Diagram: 11/23/1659911/23/16599 Procedures replacement of CSF drain and dural patch 11/12 evacuation of epidural abscess 11/07 had laminectomy 2 weeks ago Objective Remarks GENERAL: Alert and cooperative SKIN: Warm and dry. Lumbar dressing on back HEAD: Normocephalic. EYES: No scleral icterus. No injection or drainage. NECK: Supple, trachea midline. No JVD or lymphadenopathy. CARDIOVASCULAR: Regular rate and rhythm without murmurs, gallops, or rubs. RESPIRATORY: Breath sounds equal bilaterally. No accessory muscle use. GASTROINTESTINAL: Abdomen soft, non-tender, nondistended. MUSCULOSKELETAL: No cyanosis. Generalized edema lumbar drain Medications and IVs Current Medications Medications (Trade) Dose Ordered Sig/Aleja Route Start Time Stop Time Status Last Admin (Tylenol Supp) 650 mg Q4H PRN RECTAL 11/05/16 18:30 11/05/16 18:30 (NS Flush) 2 ml UNSCH PRN IV FLUSH 11/06/16 12:30 11/11/16 08:31 (NS Flush) 2 ml BID IV FLUSH 11/06/16 21:00 11/24/16 08:20 (Tylenol) 650 mg Q6H PRN PO 11/06/16 12:30 11/23/16 11:18 (Zofran Inj) 4 mg Q6H PRN IV 11/06/16 12:30 11/21/16 11:30 (Dulcolax Supp) 10 mg DAILY PRN RECTAL 11/06/16 12:30 Miscellaneous Information 1 Q361D XX 11/06/16 12:30 (Chlorhexidine 2% Cloth) Taper DAILY@04 TOP 11/07/16 04:00 11/03/17 03:59 11/22/16 03:16 (Chlorhexidine 2% Cloth) 3 pack UNSCH PRN TOP 11/06/16 12:30 (Peridex 0.12% Liq) 15 ml BID@08,20 MT 11/07/16 08:00 11/17/16 07:53 (D50w (Vial) Inj) 25 ml UNSCH PRN IV PUSH 11/07/16 04:15 (Glucagon Inj) 1 mg UNSCH PRN OTHER 11/07/16 04:15 Insulin Aspart 1 1 Q6H SQ 11/07/16 06:00 11/20/16 12:29 Potassium Chloride 100 ml @ 50 mls/hr Q2H PRN IV-CENTRAL 11/07/16 08:45 11/07/16 23:30 Potassium Chloride 100 ml @ 50 mls/hr Q2H PRN IV 11/07/16 08:45 Potassium Chloride 100 ml @ 25 mls/hr UNSCH PRN IV-CENTRAL 11/07/16 08:45 Potassium Chloride 100 ml @ 50 mls/hr Q2H PRN IV 11/07/16 08:45 11/17/16 07:53 (Magnesium Sulfate Inj/NS Inj) 100 ml @ 50 mls/hr UNSCH PRN IV 11/07/16 08:45 Magnesium Oxide 800 mg 800 mg UNSCH PRN PO 11/07/16 08:45 11/11/16 08:31 (Magnesium Sulfate Inj/NS Inj) 100 ml @ 50 mls/hr UNSCH PRN IV 11/07/16 08:45 11/18/16 06:47 Potassium Phosphate 2000 mg 2,000 mg Q4H PRN PO 11/07/16 08:45 11/12/16 08:42 (Sodium Phosphate Inj/NS 250 ml Inj) 250 ml @ 42 mls/hr UNSCH PRN IV 11/07/16 08:45 Potassium Phosphate 2000 mg 2,000 mg UNSCH PRN PO/TUBE 11/07/16 08:45 (Potassium Phosphate Inj/NS 250 ml Inj) 260 ml @ 42 mls/hr UNSCH PRN IV 11/07/16 08:45 11/10/16 06:09 (Pepcid Inj) 20 mg Q12H IV PUSH 11/07/16 16:00 11/24/16 04:29 Metoprolol Tartrate 2.5 mg 2.5 mg Q6H PRN IV PUSH 11/08/16 14:45 11/12/16 05:08 (1/2 NS 1000 ml Inj) 1,000 ml @ 0 mls/hr Q0M IV 11/09/16 09:53 11/18/16 20:46 (K-Phos) 500 mg DAILY PO 11/10/16 09:00 11/24/16 08:20 (Trandate Inj) 10 mg Q1H PRN IV 11/13/16 01:30 11/13/16 09:09 Sodium Chloride 2 gm 2 gm BID PO 11/13/16 14:00 11/23/16 20:42 (Ancef 2 Gm Premix) 50 ml @ 100 mls/hr Q8H IV 11/13/16 22:00 11/24/16 04:29 (Lopressor) 12.5 mg Q12HR PO 11/19/16 21:00 11/24/16 08:20 (Pill Splitter) 1 ea UNSCH PRN OTHER 11/19/16 10:15 (Dilaudid Pf Inj) 0.5 mg Q2HR PRN IV PUSH 11/20/16 18:15 11/22/16 23:14 (Norvasc) 10 mg DAILY PO 11/23/16 09:00 11/24/16 08:20 Assessment and Plan Problem List: (1) Spinal epidural abscess Status: Acute Plan: Patient to surgery on an urgent basis on the for evacuation of epidural abscess, wound debridement. Patient found to have pre-existing dural tear with CSF leakage which could not be primarily repaired. Indirect repair of dural tear with blood clot, Gelfoam, thrombin, tissue glue and reclosure of wound site. Dressing on site. Lumbar drain removed. No drainage noted (2) Sepsis Status: Acute Plan: ID consulted and managing. On antibiotics. WBC stable at 6.9. Remains Afebrile (3) Respiratory failure Status: Resolved Plan: Resolved (4) Anemia Status: Acute Plan: HGB stable. Monitoring with recheck in AM (5) Abnormal blood electrolyte level Status: Resolved Plan: Resolved (6) Hypertension Status: Acute Plan: Blood pressure elevated . Norvasc added yesterday and metoprolol increased today Assessment and Plan Assessment and plan discussed with Dr. Kendrick. Discussed Condition With Nursing Dayanara Barbour Nov 24, 2016 11:40
--- NOTE | 2016-11-24 11:42 | HHI.NSPN ---
(Noah Ford) Note Status Status: Progress Note (Noah Ford Dejah VAZQUEZ) Interval History Diagnosis (1) Postoperative wound dehiscence (2) Postoperative CSF leak at pre-existing L4-5 laminectomy dural tear (3) Spinal epidural abscess Interval History 86-year-old female with history of lumbar laminectomy approximately 2 weeks ago in [place]. Patient presents to the emergency room on 11/05/16 with decreasing mental status, GI symptoms, and subsequent opening of the wound with wound dehiscence and purulent drainage. 11/07/16: Patient to surgery on an urgent basis for evacuation of epidural abscess , wound debridement. Patient found to have pre-existing dural tear with CSF leakage which could not be primarily repaired. Indirect repair of dural tear with blood clot, Gelfoam, thrombin, tissue glue and reclosure of wound site. 11/08/16: Patient remains intubated, sedated, head of bed flat. Dressing dry and intact 11/09/16: Patient remains intubated. Slight amount of drainage noted from incision. Lumbar subarachnoid drain placed per interventional radiology 11/10/16: Lumbar subarachnoid drain is not functioning well. Discussed with nursing staff 11/11/16: Intermittent drainage from subarachnoid drain. Wound and dressing dry and the morning. 11/12/16: Subarachnoid drain with minimal output. Mild drainage from wound. To OR for: 1. Exploration and debridement previous L4 5 wound site. 2. Revision indirect closure right L4 5 lateral dural tear 3. Placement of lumbar subarachnoid drain, removal previous subarachnoid drain 11/13: pt intubated, POD 1 s/p replacement of lumbar drain with closure of CSF with leak with Dr. Melissa 11/14: intubated, more awake today, moving legs more. 11/15: POD # 3, patient remains intubated, opens eyes spontaneously, following commands, lumbar drain still in place, daughter reports that patient did attempt to reach for ETT yesterday with both upper extremities 11/17/16: Extubated. Sitting up in bed. Lumbar drain remains in place 11/18: Patient states she is doing good. She denies any pain. Lumbar drain still in place. 11/19: Patient states she still doing well. She denied any pain or headache. Her daughter did state that she had a terrible headache yesterday but has not complained of any today. She also stated that her mother is confused and not acting her self and at times is childish, having stuck her tongue out at the daughter. The lumbar drain remains in place. 11/20/16: CT scan was small right parieto-occipital subdural effusion without significant mass effect. Dressing dry. Drain closed the reservoir 11/21/16: Small amount of drainage from the incision. Drain reopened. 11/22/16: Drainage has stopped functioning in the afternoon. Dressing remains dry. 11/23: Patient states that she is doing good but does endorse back pain. Less confused today. 11/24: Patient drowsy today but doing okay she says. She had a rough night and did not sleep well. Nursing reports a few drops of drainage along incision this morning but when she was up to the chair she had a good bit of drainage from the lumbar surgical incision which was pinkish in colour. (Noah Ford ) Labs, Micro, & Vital Signs Constitutional Vital Signs Date Time Temp Pulse Resp B/P Pulse Ox O2 Delivery O2 Flow Rate FiO2 11/24/16 10:00 74 11/24/16 08:00 93 11/24/16 08:00 98.5 93 20 160/69 97 11/24/16 07:00 99 Nasal Cannula 2.50 11/24/16 06:00 91 11/24/16 04:00 92 11/24/16 04:00 98.5 92 22 157/99 97 11/24/16 02:00 90 11/24/16 00:00 91 11/24/16 00:00 98.0 91 21 148/70 98 11/23/16 22:00 87 11/23/16 21:07 97 Nasal Cannula 2.50 11/23/16 20:00 82 11/23/16 20:00 98.8 82 22 127/60 96 11/23/16 18:00 80 11/23/16 16:00 98.8 76 17 132/63 99 11/23/16 16:00 79 11/23/16 14:00 79 11/23/16 12:00 98.0 74 18 115/56 96 11/23/16 12:00 76 11/24/16 07:00 Intake Total 1143 ml Output Total 1400 ml Balance -257 ml (Noah Ford) Review of Systems/Exam ROS Neuro: Some dizziness earlier as rolled being rolled. Denies any headache, numbness, tingling or weakness. Resp: Denies any shortness of breath. Cardiac: Denies any chest pain or palpitations. GI: Denies any abdominal pain, N/V, or incontinence of bowel. MS: Endorses some back pain. Exam Resp: CTAB w/o W/R/R, equal excursion, non-laboured, on NC. CV: S1S2 w/RRR, w/o M/G/R. Monitor is sinus rhythm w/o any ectopy noted. GI: Abdomen soft, nontender, positive bowel sounds. Extremities: Warm, dry & pink, no deformity or clubbing. Neuro: Sleepy but & alert. Sensation to light touch grossly intact to all extremities. Moderate strength to major flexion & extension groups to all extremities. Back: Lumbar drain insertion site w/o any evident drainage, erythema or streaking. Dressing intact w/reddish spotting along surgical incision, interior dressing with reddish changing to yellowing drainage on it, wound drying out but no drainage noted at present, no significant erythema or edema. (Noah Ford) Medications Current Medications Current Medications Medications (Trade) Dose Ordered Sig/Aleja Route Start Time Stop Time Status Last Admin (Tylenol Supp) 650 mg Q4H PRN RECTAL 11/05/16 18:30 11/05/16 18:30 (NS Flush) 2 ml UNSCH PRN IV FLUSH 11/06/16 12:30 11/11/16 08:31 (NS Flush) 2 ml BID IV FLUSH 11/06/16 21:00 11/24/16 08:20 (Tylenol) 650 mg Q6H PRN PO 11/06/16 12:30 11/23/16 11:18 (Zofran Inj) 4 mg Q6H PRN IV 11/06/16 12:30 11/21/16 11:30 (Dulcolax Supp) 10 mg DAILY PRN RECTAL 11/06/16 12:30 Miscellaneous Information 1 Q361D XX 11/06/16 12:30 (Chlorhexidine 2% Cloth) Taper DAILY@04 TOP 11/07/16 04:00 11/03/17 03:59 11/22/16 03:16 (Chlorhexidine 2% Cloth) 3 pack UNSCH PRN TOP 11/06/16 12:30 (Peridex 0.12% Liq) 15 ml BID@08,20 MT 11/07/16 08:00 11/17/16 07:53 (D50w (Vial) Inj) 25 ml UNSCH PRN IV PUSH 11/07/16 04:15 (Glucagon Inj) 1 mg UNSCH PRN OTHER 11/07/16 04:15 Insulin Aspart 1 1 Q6H SQ 11/07/16 06:00 11/20/16 12:29 Potassium Chloride 100 ml @ 50 mls/hr Q2H PRN IV-CENTRAL 11/07/16 08:45 11/07/16 23:30 Potassium Chloride 100 ml @ 50 mls/hr Q2H PRN IV 11/07/16 08:45 Potassium Chloride 100 ml @ 25 mls/hr UNSCH PRN IV-CENTRAL 11/07/16 08:45 Potassium Chloride 100 ml @ 50 mls/hr Q2H PRN IV 11/07/16 08:45 11/17/16 07:53 (Magnesium Sulfate Inj/NS Inj) 100 ml @ 50 mls/hr UNSCH PRN IV 11/07/16 08:45 Magnesium Oxide 800 mg 800 mg UNSCH PRN PO 11/07/16 08:45 11/11/16 08:31 (Magnesium Sulfate Inj/NS Inj) 100 ml @ 50 mls/hr UNSCH PRN IV 11/07/16 08:45 11/18/16 06:47 Potassium Phosphate 2000 mg 2,000 mg Q4H PRN PO 11/07/16 08:45 11/12/16 08:42 (Sodium Phosphate Inj/NS 250 ml Inj) 250 ml @ 42 mls/hr UNSCH PRN IV 11/07/16 08:45 Potassium Phosphate 2000 mg 2,000 mg UNSCH PRN PO/TUBE 11/07/16 08:45 (Potassium Phosphate Inj/NS 250 ml Inj) 260 ml @ 42 mls/hr UNSCH PRN IV 11/07/16 08:45 11/10/16 06:09 (Pepcid Inj) 20 mg Q12H IV PUSH 11/07/16 16:00 11/24/16 04:29 Metoprolol Tartrate 2.5 mg 2.5 mg Q6H PRN IV PUSH 11/08/16 14:45 11/12/16 05:08 (1/2 NS 1000 ml Inj) 1,000 ml @ 0 mls/hr Q0M IV 11/09/16 09:53 11/18/16 20:46 (K-Phos) 500 mg DAILY PO 11/10/16 09:00 11/24/16 08:20 (Trandate Inj) 10 mg Q1H PRN IV 11/13/16 01:30 11/13/16 09:09 Sodium Chloride 2 gm 2 gm BID PO 11/13/16 14:00 11/23/16 20:42 (Ancef 2 Gm Premix) 50 ml @ 100 mls/hr Q8H IV 11/13/16 22:00 11/24/16 04:29 (Pill Splitter) 1 ea UNSCH PRN OTHER 11/19/16 10:15 (Dilaudid Pf Inj) 0.5 mg Q2HR PRN IV PUSH 11/20/16 18:15 11/22/16 23:14 (Norvasc) 10 mg DAILY PO 11/23/16 09:00 11/24/16 08:20 (Lopressor) 25 mg Q12HR PO 11/24/16 21:00 UNV (Noah Ford) Medical Decision Making MDM Remarks Status post repeat debridement lumbar wound dehiscence, replacement lumbar subarachnoid drain, indirect closure of CSF leak and dural tear on 11/12/16 Wound drying, some drainage from it earlier this morning Confusion improved (Noah Ford) Plan Plan Remarks Discussed plan of care with patient & family Continue neuro checks Keep patient off of back Mobilise to chair w/assistance Continue heat lamp to lumbar surgical incision for 1 hour 4x/day to dry maceration Will discuss with Dr Melissa (Noah Ford) Attending Statement I have personally seen and examined the patient on the date of this note. Pertinent documentation and study results have been reviewed by the undersigned. I have personally developed the treatment plan and performed medical decision making. Agree with findings, exam, and treatment plan as noted above. Minimal drainage wound. No obvious CSF leak Continue present wound care-improving slowly Discussed at length with nursing staff (Pratik Melissa MD) Noah Ford Nov 24, 2016 11:42 Pratik Melissa MD Nov 24, 2016 18:54
[2016-11-24] MEDS: SODIUM CHLORIDE 1 GRAM TAB PO SCH ×2 (11:48→20:45)
[2016-11-24] MEDS: HYDROmorphone HCL PF 1 MG/ML VIAL IV PUSH PRN (16:15)
[2016-11-25] VITALS (14 sets, daily range): BP systolic 127–141; BP diastolic 56–79; PULSE 75–101; RESP 20–23; TEMP 98.2–98.8; O2SAT 95–98
[2016-11-25] MEDS: CHLORHEXIDINE GLUCONATE 2 % 1 PACK (2 CLOTHS) TOP SCH (04:00)
[2016-11-25] MEDS: INSULIN ASPART SUPPLEMENTAL SCALE SQ SCH ×5 (05:21→23:42)
[2016-11-25] MEDS: ceFAZolin 2 GM PREMIX 50 ML IV SCH ×3 (05:21→21:35)
[2016-11-25] MEDS: FAMOTIDINE 20 MG/2 ML VIAL IV PUSH SCH ×2 (05:21→15:15)
[2016-11-25 06:57] LABS: AUTOMATED NEUTROPHIL # 7.4 TH/MM3 (1.8-7.7); BASOPHIL % 0.5 % (0.0-2.0); EOSINOPHIL # 0.1 TH/MM3 (0-0.4); EOSINOPHIL % 1.4 % (0.0-4.0); HEMATOCRIT 25.3 % (35.0-46.0); HEMO FLAGS DIFF FINAL; LYMPH % 4.5 % (9.0-44.0); LYMPHOCYTE # 0.4 TH/MM3 (1.0-4.8); MEAN CORPUSCULAR HEMOGLOBIN 31.8 PG (27.0-34.0); MEAN CORPUSCULAR HGB CONC 33.5 % (32.0-36.0); MONO % 11.3 % (0.0-8.0); NEUT % 82.3 % (16.0-70.0); PLATELET COUNT 228 TH/MM3 (150-450); RED BLOOD COUNT 2.67 MIL/MM3 (4.00-5.30); RED CELL DISTRIBUTION WIDTH 14.3 % (11.6-17.2)
[2016-11-25 07:19] LABS: BICARBONATE 27.2 MEQ/L (21.0-32.0); POTASSIUM 4.1 MEQ/L (3.5-5.1)
[2016-11-25] MEDS: CHLORHEXIDINE 0.12% (ORAL KIT) 15 ML CUP MT SCH ×2 (08:00→20:00)
[2016-11-25] MEDS: SODIUM CHLORIDE 1 GRAM TAB PO SCH ×2 (10:08→20:17)
[2016-11-25] MEDS: METOPROLOL TARTRATE 25 MG TAB PO SCH ×2 (10:09→20:17)
[2016-11-25] MEDS: POTASSIUM PHOSPHATE MONOBASIC 500 MG TAB PO SCH (10:09)
[2016-11-25] MEDS: SODIUM CHLORIDE 0.9% FLUSH 10 ML FLUSH IV FLUSH SCH ×2 (10:09→20:17)
--- NOTE | 2016-11-25 10:45 | HHI.NSPN ---
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 Patient presents to the emergency room on 11/05/16 with decreasing mental status, GI symptoms, and subsequent opening of the wound with wound dehiscence and purulent drainage. 11/07/16: Patient to surgery on an urgent basis for evacuation of epidural abscess , wound debridement. Patient found to have pre-existing dural tear with CSF leakage which could not be primarily repaired. Indirect repair of dural tear with blood clot, Gelfoam, thrombin, tissue glue and reclosure of wound site. 11/08/16: Patient remains intubated, sedated, head of bed flat. Dressing dry and intact 11/09/16: Patient remains intubated. Slight amount of drainage noted from incision. Lumbar subarachnoid drain placed per interventional radiology 11/10/16: Lumbar subarachnoid drain is not functioning well. Discussed with nursing staff 11/11/16: Intermittent drainage from subarachnoid drain. Wound and dressing dry and the morning. 11/12/16: Subarachnoid drain with minimal output. Mild drainage from wound. To OR for: 1. Exploration and debridement previous L4 5 wound site. 2. Revision indirect closure right L4 5 lateral dural tear 3. Placement of lumbar subarachnoid drain, removal previous subarachnoid drain 11/13: pt intubated, POD 1 s/p replacement of lumbar drain with closure of CSF with leak with Dr. Melissa 11/14: intubated, more awake today, moving legs more. 11/15: POD # 3, patient remains intubated, opens eyes spontaneously, following commands, lumbar drain still in place, daughter reports that patient did attempt to reach for ETT yesterday with both upper extremities 11/17/16: Extubated. Sitting up in bed. Lumbar drain remains in place 11/18: Patient states she is doing good. She denies any pain. Lumbar drain still in place. 11/19: Patient states she still doing well. She denied any pain or headache. Her daughter did state that she had a terrible headache yesterday but has not complained of any today. She also stated that her mother is confused and not acting her self and at times is childish, having stuck her tongue out at the daughter. The lumbar drain remains in place. 11/20/16: CT scan was small right parieto-occipital subdural effusion without significant mass effect. Dressing dry. Drain closed the reservoir 11/21/16: Small amount of drainage from the incision. Drain reopened. 11/22/16: Drainage has stopped functioning in the afternoon. Dressing remains dry. 11/23: Patient states that she is doing good but does endorse back pain. Less confused today. 11/24: Patient drowsy today but doing okay she says. She had a rough night and did not sleep well. Nursing reports a few drops of drainage along incision this morning but when she was up to the chair she had a good bit of drainage from the lumbar surgical incision which was pinkish in colour. 11/25: Patient awake & alert, denies any complaints. (Noah Ford) Labs, Micro, & Vital Signs Results Allergies Coded Allergies Type Severity Reaction Last Updated Verified Penicillin Allergy Severe Rash 11/06/16 Yes 11/23////// 05:59 17:59 05:59 17:59 05:59 17:59 Intake Total 688 ml 344 ml 799 ml 352 ml 673 ml Output Total 800 ml 550 ml 850 ml 400 ml 600 ml Balance -112 ml -206 ml -51 ml -48 ml 73 ml Intake Oral 440 ml 200 ml 480 ml 240 ml 340 ml IV Total 248 ml 144 ml 319 ml 112 ml 333 ml Output Urine Total 800 ml 550 ml 850 ml 400 ml 600 ml Drainage Total 0 ml # Bowel Movements 1 1 1 Laboratory Tests Test 11/23/16 11/25/16 06:00 05:30 White Blood Count 5.9 TH/MM3 9.0 TH/MM3 Red Blood Count 2.51 MIL/MM3 2.67 MIL/MM3 Hemoglobin 8.4 GM/DL 8.5 GM/DL Hematocrit 23.9 % 25.3 % Mean Corpuscular Volume 95.2 FL 95.0 FL Mean Corpuscular Hemoglobin 33.3 PG 31.8 PG Mean Corpuscular Hemoglobin 35.0 % 33.5 % Concent Red Cell Distribution Width 14.3 % 14.3 % Platelet Count 257 TH/MM3 228 TH/MM3 Mean Platelet Volume 8.8 FL 8.9 FL Neutrophils (%) (Auto) 74.4 % 82.3 % Lymphocytes (%) (Auto) 6.6 % 4.5 % Monocytes (%) (Auto) 14.1 % 11.3 % Eosinophils (%) (Auto) 4.1 % 1.4 % Basophils (%) (Auto) 0.8 % 0.5 % Neutrophils # (Auto) 4.4 TH/MM3 7.4 TH/MM3 Lymphocytes # (Auto) 0.4 TH/MM3 0.4 TH/MM3 Monocytes # (Auto) 0.8 TH/MM3 1.0 TH/MM3 Eosinophils # (Auto) 0.2 TH/MM3 0.1 TH/MM3 Basophils # (Auto) 0.0 TH/MM3 0.0 TH/MM3 CBC Comment DIFF FINAL DIFF FINAL Differential Comment Sodium Level 136 MEQ/L 136 MEQ/L Potassium Level 4.1 MEQ/L 4.1 MEQ/L Chloride Level 101 MEQ/L 100 MEQ/L Carbon Dioxide Level 27.1 MEQ/L 27.2 MEQ/L Anion Gap 8 MEQ/L 9 MEQ/L Blood Urea Nitrogen 11 MG/DL 18 MG/DL Creatinine 0.45 MG/DL 0.47 MG/DL Estimat Glomerular Filtration 132 ML/MIN 126 ML/MIN Rate Random Glucose 107 MG/DL 114 MG/DL Calcium Level 8.2 MG/DL 8.5 MG/DL Prealbumin 12 MG/DL Constitutional Vital Signs Date Time Temp Pulse Resp B/P Pulse Ox O2 Delivery O2 Flow Rate FiO2 11/25/16 07:20 95 Nasal Cannula 2.50 11/25/16 06:00 79 11/25/16 04:00 98.3 79 22 141/63 98 11/25/16 04:00 79 11/25/16 02:00 84 11/25/16 00:00 98.5 89 23 128/79 98 11/25/16 00:00 89 11/24/16 22:00 78 11/24/16 20:00 98.3 85 18 135/63 97 11/24/16 20:00 91 11/24/16 19:03 96 Nasal Cannula 2.50 11/24/16 18:00 84 11/24/16 16:47 20 11/24/16 16:00 84 11/24/16 16:00 98.3 84 16 123/69 95 11/24/16 14:00 81 11/24/16 12:00 99.2 79 14 117/56 100 11/24/16 12:00 79 11/25/16 06:59 Intake Total 1025 ml Output Total 1000 ml Balance 25 ml (Noah Ford) Review of Systems/Exam ROS Neuro: Some dizziness as she is being rolled onto her side. Denies any headache , numbness, tingling or weakness. Resp: Denies any shortness of breath or productive cough. Cardiac: Denies any chest pain, palpitations or irregular heart beat. GI: Denies any abdominal pain, N/V, or incontinence of bowel. MS: Endorses some back pain. Exam Resp: CTAB w/o W/R/R, equal excursion, non-laboured, on NC. CV: S1S2 w/RRR, w/o M/G/R. Monitor is sinus rhythm w/o any ectopy noted. GI: Abdomen soft, nontender, positive bowel sounds. Extremities: Warm, dry & pink, no deformity or clubbing. Neuro: AA&O x3. Speech clear & appropriate. Follows commands. Sensation to light touch grossly intact to all extremities. Moderate strength to major flexion & extension groups to all extremities. Back: Lumbar drain insertion site w/o any evident drainage, erythema or streaking. Dressing intact w/yellowish spotting, interior dressing with yellowing drainage on it, wound moist & macerated but no drainage noted at present, no significant erythema or edema, wound not well approximated with beefy red tissue noted in areas below maceration where open. PROCEDURE: With the patient positioned on her right side the mattress suture was removed. The incision continued to dehisce along the entire incision once the suture was removed. Tissue underneath appears beefy red. The dehiscence appears to go deeper in some areas. (Noah Ford) Medications Current Medications Current Medications Medications (Trade) Dose Ordered Sig/Aleja Route Start Time Stop Time Status Last Admin (Tylenol Supp) 650 mg Q4H PRN RECTAL 11/05/16 18:30 11/05/16 18:30 (NS Flush) 2 ml UNSCH PRN IV FLUSH 11/06/16 12:30 11/11/16 08:31 (NS Flush) 2 ml BID IV FLUSH 11/06/16 21:00 11/25/16 10:09 (Tylenol) 650 mg Q6H PRN PO 11/06/16 12:30 11/23/16 11:18 (Zofran Inj) 4 mg Q6H PRN IV 11/06/16 12:30 11/21/16 11:30 (Dulcolax Supp) 10 mg DAILY PRN RECTAL 11/06/16 12:30 Miscellaneous Information 1 Q361D XX 11/06/16 12:30 (Chlorhexidine 2% Cloth) Taper DAILY@04 TOP 11/07/16 04:00 11/03/17 03:59 11/25/16 04:00 (Chlorhexidine 2% Cloth) 3 pack UNSCH PRN TOP 11/06/16 12:30 (Peridex 0.12% Liq) 15 ml BID@08,20 MT 11/07/16 08:00 11/24/16 20:00 (D50w (Vial) Inj) 25 ml UNSCH PRN IV PUSH 11/07/16 04:15 (Glucagon Inj) 1 mg UNSCH PRN OTHER 11/07/16 04:15 Insulin Aspart 1 1 Q6H SQ 11/07/16 06:00 11/20/16 12:29 Potassium Chloride 100 ml @ 50 mls/hr Q2H PRN IV-CENTRAL 11/07/16 08:45 11/07/16 23:30 Potassium Chloride 100 ml @ 50 mls/hr Q2H PRN IV 11/07/16 08:45 Potassium Chloride 100 ml @ 25 mls/hr UNSCH PRN IV-CENTRAL 11/07/16 08:45 Potassium Chloride 100 ml @ 50 mls/hr Q2H PRN IV 11/07/16 08:45 11/17/16 07:53 (Magnesium Sulfate Inj/NS Inj) 100 ml @ 50 mls/hr UNSCH PRN IV 11/07/16 08:45 Magnesium Oxide 800 mg 800 mg UNSCH PRN PO 11/07/16 08:45 11/11/16 08:31 (Magnesium Sulfate Inj/NS Inj) 100 ml @ 50 mls/hr UNSCH PRN IV 11/07/16 08:45 11/18/16 06:47 Potassium Phosphate 2000 mg 2,000 mg Q4H PRN PO 11/07/16 08:45 11/12/16 08:42 (Sodium Phosphate Inj/NS 250 ml Inj) 250 ml @ 42 mls/hr UNSCH PRN IV 11/07/16 08:45 Potassium Phosphate 2000 mg 2,000 mg UNSCH PRN PO/TUBE 11/07/16 08:45 (Potassium Phosphate Inj/NS 250 ml Inj) 260 ml @ 42 mls/hr UNSCH PRN IV 11/07/16 08:45 11/10/16 06:09 (Pepcid Inj) 20 mg Q12H IV PUSH 11/07/16 16:00 11/25/16 05:21 Metoprolol Tartrate 2.5 mg 2.5 mg Q6H PRN IV PUSH 11/08/16 14:45 11/12/16 05:08 (1/2 NS 1000 ml Inj) 1,000 ml @ 0 mls/hr Q0M IV 11/09/16 09:53 11/18/16 20:46 (K-Phos) 500 mg DAILY PO 11/10/16 09:00 11/25/16 10:09 (Trandate Inj) 10 mg Q1H PRN IV 11/13/16 01:30 11/13/16 09:09 Sodium Chloride 2 gm 2 gm BID PO 11/13/16 14:00 11/25/16 10:08 (Ancef 2 Gm Premix) 50 ml @ 100 mls/hr Q8H IV 11/13/16 22:00 11/25/16 05:21 (Pill Splitter) 1 ea UNSCH PRN OTHER 11/19/16 10:15 (Dilaudid Pf Inj) 0.5 mg Q2HR PRN IV PUSH 11/20/16 18:15 11/24/16 16:15 (Norvasc) 10 mg DAILY PO 11/23/16 09:00 11/25/16 10:09 (Lopressor) 25 mg Q12HR PO 11/24/16 21:00 11/25/16 10:09 (Noah Ford) Medical Decision Making [facility] Remarks Status post repeat debridement lumbar wound dehiscence, replacement lumbar subarachnoid drain, indirect closure of CSF leak and dural tear on 11/12/16 Wound still macerated with some dehiscence which worsens once mattress suture is removed Confusion resolved (Noah Ford) Plan Plan Remarks Discussed plan of care with patient & family Continue neuro checks Keep patient off of back Mobilise to chair w/assistance Continue heat lamp to lumbar surgical incision for 1 hour 4x/day to dry maceration Anticipate that patient will go back to OR for possible debridement of macerated skin and closure Patient made NPO Will discuss with Dr Melissa (Noah Ford) Attending Statement I have personally seen and examined the patient on the date of this note. Pertinent documentation and study results have been reviewed by the undersigned. I have personally developed the treatment plan and performed medical decision making. Agree with findings, exam, and treatment plan as noted above. The patient incision site examined this evening. Previous sutures been removed. Skin remains somewhat macerated but relatively mild drainage. It is unlikely that she has persistent CSF leak. Most likely serous drainage. We will take her back to surgery tomorrow to debride the wound, possibly leave a deep drain and then determine whether primary closure versus leaving the wound open this most appropriate. I discussed this with the patient today and she appears to understand and agree. (Pratik Melissa MD) Noah Ford Nov 25, 2016 10:45 Pratik Melissa MD Nov 25, 2016 22:25
--- NOTE | 2016-11-25 10:59 | HHI.PR ---
Subjective Remarks Patient is alert and cooperative. Denies any CP or SOB. Mentation improving. Afebrile Objective Vital Signs Date Time Temp Pulse Resp B/P Pulse Ox O2 Delivery O2 Flow Rate FiO2 11/25/16 07:20 95 Nasal Cannula 2.50 11/25/16 06:00 79 11/25/16 04:00 98.3 79 22 141/63 98 11/25/16 04:00 79 11/25/16 02:00 84 11/25/16 00:00 98.5 89 23 128/79 98 11/25/16 00:00 89 11/24/16 22:00 78 11/24/16 20:00 98.3 85 18 135/63 97 11/24/16 20:00 91 11/24/16 19:03 96 Nasal Cannula 2.50 11/24/16 18:00 84 11/24/16 16:47 20 11/24/16 16:00 84 11/24/16 16:00 98.3 84 16 123/69 95 11/24/16 14:00 81 11/24/16 12:00 99.2 79 14 117/56 100 11/24/16 12:00 79 I/O 11/24/16 11/24/16 11/24/16 11/25/16 11/25/16 11/25/16 07:00 15:00 23:00 07:00 15:00 23:00 Intake Total 439 ml 352 ml 453 ml 220 ml Output Total 400 ml 400 ml 300 ml 300 ml Balance 39 ml -48 ml 153 ml -80 ml Intake Oral 240 ml 240 ml 240 ml 100 ml IV Total 199 ml 112 ml 213 ml 120 ml Output Urine Total 400 ml 400 ml 300 ml 300 ml # Bowel Movements 0 1 Result Diagram: 11/25/1630 11/25/16 0530 Procedures replacement of CSF drain and dural patch 11/12 evacuation of epidural abscess 11/07 had laminectomy 2 weeks ago Objective Remarks GENERAL: Alert and cooperative SKIN: Warm and dry. Lumbar dressing on back HEAD: Normocephalic. EYES: No scleral icterus. No injection or drainage. NECK: Supple, trachea midline. No JVD or lymphadenopathy. CARDIOVASCULAR: Regular rate and rhythm without murmurs, gallops, or rubs. RESPIRATORY: Breath sounds equal bilaterally. No accessory muscle use. GASTROINTESTINAL: Abdomen soft, non-tender, nondistended. MUSCULOSKELETAL: No cyanosis. Generalized edema lumbar drain Medications and IVs Current Medications Medications (Trade) Dose Ordered Sig/Aleja Route Start Time Stop Time Status Last Admin (Tylenol Supp) 650 mg Q4H PRN RECTAL 11/05/16 18:30 11/05/16 18:30 (NS Flush) 2 ml UNSCH PRN IV FLUSH 11/06/16 12:30 11/11/16 08:31 (NS Flush) 2 ml BID IV FLUSH 11/06/16 21:00 11/25/16 10:09 (Tylenol) 650 mg Q6H PRN PO 11/06/16 12:30 11/23/16 11:18 (Zofran Inj) 4 mg Q6H PRN IV 11/06/16 12:30 11/21/16 11:30 (Dulcolax Supp) 10 mg DAILY PRN RECTAL 11/06/16 12:30 Miscellaneous Information 1 Q361D XX 11/06/16 12:30 (Chlorhexidine 2% Cloth) Taper DAILY@04 TOP 11/07/16 04:00 11/03/17 03:59 11/25/16 04:00 (Chlorhexidine 2% Cloth) 3 pack UNSCH PRN TOP 11/06/16 12:30 (Peridex 0.12% Liq) 15 ml BID@08,20 MT 11/07/16 08:00 11/24/16 20:00 (D50w (Vial) Inj) 25 ml UNSCH PRN IV PUSH 11/07/16 04:15 (Glucagon Inj) 1 mg UNSCH PRN OTHER 11/07/16 04:15 Insulin Aspart 1 1 Q6H SQ 11/07/16 06:00 11/20/16 12:29 Potassium Chloride 100 ml @ 50 mls/hr Q2H PRN IV-CENTRAL 11/07/16 08:45 11/07/16 23:30 Potassium Chloride 100 ml @ 50 mls/hr Q2H PRN IV 11/07/16 08:45 Potassium Chloride 100 ml @ 25 mls/hr UNSCH PRN IV-CENTRAL 11/07/16 08:45 Potassium Chloride 100 ml @ 50 mls/hr Q2H PRN IV 11/07/16 08:45 11/17/16 07:53 (Magnesium Sulfate Inj/NS Inj) 100 ml @ 50 mls/hr UNSCH PRN IV 11/07/16 08:45 Magnesium Oxide 800 mg 800 mg UNSCH PRN PO 11/07/16 08:45 11/11/16 08:31 (Magnesium Sulfate Inj/NS Inj) 100 ml @ 50 mls/hr UNSCH PRN IV 11/07/16 08:45 11/18/16 06:47 Potassium Phosphate 2000 mg 2,000 mg Q4H PRN PO 11/07/16 08:45 11/12/16 08:42 (Sodium Phosphate Inj/NS 250 ml Inj) 250 ml @ 42 mls/hr UNSCH PRN IV 11/07/16 08:45 Potassium Phosphate 2000 mg 2,000 mg UNSCH PRN PO/TUBE 11/07/16 08:45 (Potassium Phosphate Inj/NS 250 ml Inj) 260 ml @ 42 mls/hr UNSCH PRN IV 11/07/16 08:45 11/10/16 06:09 (Pepcid Inj) 20 mg Q12H IV PUSH 11/07/16 16:00 11/25/16 05:21 Metoprolol Tartrate 2.5 mg 2.5 mg Q6H PRN IV PUSH 11/08/16 14:45 11/12/16 05:08 (1/2 NS 1000 ml Inj) 1,000 ml @ 0 mls/hr Q0M IV 11/09/16 09:53 11/18/16 20:46 (K-Phos) 500 mg DAILY PO 11/10/16 09:00 11/25/16 10:09 (Trandate Inj) 10 mg Q1H PRN IV 11/13/16 01:30 11/13/16 09:09 Sodium Chloride 2 gm 2 gm BID PO 11/13/16 14:00 11/25/16 10:08 (Ancef 2 Gm Premix) 50 ml @ 100 mls/hr Q8H IV 11/13/16 22:00 11/25/16 05:21 (Pill Splitter) 1 ea UNSCH PRN OTHER 11/19/16 10:15 (Dilaudid Pf Inj) 0.5 mg Q2HR PRN IV PUSH 11/20/16 18:15 11/24/16 16:15 (Norvasc) 10 mg DAILY PO 11/23/16 09:00 11/25/16 10:09 (Lopressor) 25 mg Q12HR PO 11/24/16 21:00 11/25/16 10:09 Assessment and Plan Problem List: (1) Spinal epidural abscess Status: Acute Plan: Patient to surgery on an urgent basis on the for evacuation of epidural abscess, wound debridement. Patient found to have pre-existing dural tear with CSF leakage which could not be primarily repaired. Indirect repair of dural tear with blood clot, Gelfoam, thrombin, tissue glue and reclosure of wound site. Dressing on site. Lumbar drain removed. No drainage noted heat lamp to back 1 hour 4 X per day to dry maceration (2) Sepsis Status: Acute Plan: ID consulted and managing. On antibiotics. WBC stable at 9.0. Remains Afebrile Will need 8-12 weeks of IV antibiotics from date of last surgery per ID note (3) Respiratory failure Status: Resolved Plan: Resolved (4) Anemia Status: Acute Plan: HGB stable at 10.4. Monitoring with recheck in AM (5) Abnormal blood electrolyte level Status: Resolved Plan: Resolved (6) Hypertension Status: Acute Plan: Blood pressure better controlled at 141/63 B/P medication titrated over the last couple of days Assessment and Plan Assessment and plan discussed with Dr. Kendrick. Discussed Condition With Nursing Dayanara Barbour Nov 25, 2016 10:59
[2016-11-25] MEDS: ONDANSETRON HCL 4 MG/2 ML VIAL IV PRN (18:20)
[2016-11-26] VITALS (12 sets, daily range): BP systolic 113–152; BP diastolic 56–72; PULSE 74–90; RESP 11–24; TEMP 97.7–98.4; O2SAT 95–100
[2016-11-26] MEDS: CHLORHEXIDINE GLUCONATE 2 % 1 PACK (2 CLOTHS) TOP SCH (04:00)
[2016-11-26 05:12] LABS: AUTOMATED NEUTROPHIL # 3.9 TH/MM3 (1.8-7.7); BASOPHIL % 0.6 % (0.0-2.0); EOSINOPHIL # 0.2 TH/MM3 (0-0.4); EOSINOPHIL % 3.5 % (0.0-4.0); HEMO FLAGS DIFF FINAL; LYMPHOCYTE # 0.4 TH/MM3 (1.0-4.8); MEAN CELL VOLUME 94.2 FL (80.0-100.0); MEAN CORPUSCULAR HEMOGLOBIN 32.6 PG (27.0-34.0); MEAN CORPUSCULAR HGB CONC 34.7 % (32.0-36.0); MONO % 14.6 % (0.0-8.0); NEUT % 73.3 % (16.0-70.0); PLATELET COUNT 239 TH/MM3 (150-450); RED BLOOD COUNT 2.65 MIL/MM3 (4.00-5.30); RED CELL DISTRIBUTION WIDTH 14.5 % (11.6-17.2); WHITE BLOOD COUNT 5.3 TH/MM3 (4.0-11.0)
[2016-11-26 05:17] LABS: BICARBONATE 28.1 MEQ/L (21.0-32.0)
[2016-11-26] MEDS: ceFAZolin 2 GM PREMIX 50 ML IV SCH ×3 (05:18→20:34)
[2016-11-26] MEDS: FAMOTIDINE 20 MG/2 ML VIAL IV PUSH SCH ×2 (05:18→16:06)
[2016-11-26] MEDS: INSULIN ASPART SUPPLEMENTAL SCALE SQ SCH ×3 (05:21→17:43)
[2016-11-26] MEDS ORDERED: GENTAMICIN SULFATE 80 MG/2 ML VIAL ONE (06:59)
[2016-11-26] MEDS ORDERED: GELFOAM SIZE 100 ONE (06:59)
[2016-11-26] MEDS ORDERED: THROMBIN (TOPICAL) 5,000 UNIT VIAL ONE (06:59)
[2016-11-26] MEDS ORDERED: LIDOCAINE 1%/EPINEPHrine 1:100,000 SOLN 20 ML VIAL ONE (07:00)
[2016-11-26] MEDS ORDERED: fentaNYL CITRATE 250 MCG/5 ML AMP ONE (07:32)
[2016-11-26] MEDS ORDERED: ACETAMINOPHEN 1000 MG/100 ML VIAL IV ONE (07:32)
[2016-11-26] MEDS: CHLORHEXIDINE 0.12% (ORAL KIT) 15 ML CUP MT SCH ×2 (08:00→20:00)
[2016-11-26] MEDS: METOPROLOL TARTRATE 25 MG TAB PO SCH ×2 (09:00→20:34)
[2016-11-26] MEDS: SODIUM CHLORIDE 1 GRAM TAB PO SCH ×2 (09:00→20:34)
[2016-11-26] MEDS: POTASSIUM PHOSPHATE MONOBASIC 500 MG TAB PO SCH (09:00)
[2016-11-26] MEDS: SODIUM CHLORIDE 0.9% FLUSH 10 ML FLUSH IV FLUSH SCH ×2 (09:00→20:34)
[2016-11-26] MEDS ORDERED: DO NOT ADM ANY ANTICOAGULANT DRUGS PRN (09:38)
[2016-11-26] MEDS ORDERED: NEOSTIGMINE 3 MG/3 ML SYR IV ONE (12:00)
[2016-11-26] MEDS ORDERED: ONDANSETRON HCL 4 MG/2 ML VIAL IV PUSH ONE (12:00)
[2016-11-26] MEDS ORDERED: ePHEDrine/NS 25 MG/5 ML SYR IV ONE (12:00)
[2016-11-26] MEDS ORDERED: PHENYLEPH/NS 1000 MCG/10 ML SYR IV ONE (12:00)
[2016-11-26] MEDS ORDERED: PROPOFOL 200 MG/20 ML AMP IV ONE (12:00)
--- NOTE | 2016-11-26 16:57 | HHI.NSPN ---
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 Patient presents to the emergency room on 11/05/16 with decreasing mental status, GI symptoms, and subsequent opening of the wound with wound dehiscence and purulent drainage. 11/07/16: Patient to surgery on an urgent basis for evacuation of epidural abscess , wound debridement. Patient found to have pre-existing dural tear with CSF leakage which could not be primarily repaired. Indirect repair of dural tear with blood clot, Gelfoam, thrombin, tissue glue and reclosure of wound site. 11/08/16: Patient remains intubated, sedated, head of bed flat. Dressing dry and intact 11/09/16: Patient remains intubated. Slight amount of drainage noted from incision. Lumbar subarachnoid drain placed per interventional radiology 11/10/16: Lumbar subarachnoid drain is not functioning well. Discussed with nursing staff 11/11/16: Intermittent drainage from subarachnoid drain. Wound and dressing dry and the morning. 11/12/16: Subarachnoid drain with minimal output. Mild drainage from wound. To OR for: 1. Exploration and debridement previous L4 5 wound site. 2. Revision indirect closure right L4 5 lateral dural tear 3. Placement of lumbar subarachnoid drain, removal previous subarachnoid drain 11/13: pt intubated, POD 1 s/p replacement of lumbar drain with closure of CSF with leak with Dr. Melissa 11/14: intubated, more awake today, moving legs more. 11/15: POD # 3, patient remains intubated, opens eyes spontaneously, following commands, lumbar drain still in place, daughter reports that patient did attempt to reach for ETT yesterday with both upper extremities 11/17/16: Extubated. Sitting up in bed. Lumbar drain remains in place 11/18: Patient states she is doing good. She denies any pain. Lumbar drain still in place. 11/19: Patient states she still doing well. She denied any pain or headache. Her daughter did state that she had a terrible headache yesterday but has not complained of any today. She also stated that her mother is confused and not acting her self and at times is childish, having stuck her tongue out at the daughter. The lumbar drain remains in place. 11/20/16: CT scan was small right parieto-occipital subdural effusion without significant mass effect. Dressing dry. Drain closed the reservoir 11/21/16: Small amount of drainage from the incision. Drain reopened. 11/22/16: Drainage has stopped functioning in the afternoon. Dressing remains dry. 11/23: Patient states that she is doing good but does endorse back pain. Less confused today. 11/24: Patient drowsy today but doing okay she says. She had a rough night and did not sleep well. Nursing reports a few drops of drainage along incision this morning but when she was up to the chair she had a good bit of drainage from the lumbar surgical incision which was pinkish in colour. 11/25: Patient awake & alert, denies any complaints. 11/26: Patient looks good this afternoon. Family says she is more alert than she has been. This morning she went for a lumbar wound revision. (Noah Ford) Labs, Micro, & Vital Signs Constitutional Vital Signs Date Time Temp Pulse Resp B/P Pulse Ox O2 Delivery O2 Flow Rate FiO2 11/26/16 16:00 97.7 78 20 113/58 99 11/26/16 16:00 78 11/26/16 14:00 75 11/26/16 12:00 97.7 74 17 119/56 100 11/26/16 12:00 90 11/26/16 11:55 97.6 85 16 118/60 98 Nasal Cannula 2 11/26/16 11:00 84 16 112/58 98 Nasal Cannula 2 11/26/16 10:30 97.8 81 16 104/51 98 Nasal Cannula 2 11/26/16 10:15 80 15 103/52 97 Nasal Cannula 2 11/26/16 10:00 79 15 101/58 96 Nasal Cannula 2 11/26/16 09:45 78 15 98/59 100 Nasal Cannula 3 11/26/16 09:38 97.4 78 16 97/55 99 Nasal Cannula 3 11/26/16 07:20 95 Nasal Cannula 2.50 11/26/16 06:00 80 11/26/16 04:00 98.1 77 24 152/72 98 11/26/16 04:00 77 11/26/16 02:00 77 11/26/16 00:00 77 11/26/16 00:00 98.0 77 11 144/64 98 11/25/16 22:00 81 11/25/16 20:00 98.2 85 22 138/60 96 Arterial Line 11/25/16 20:00 85 11/25/16 19:03 96 Nasal Cannula 2.50 11/25/16 18:00 90 11/26/16 07:00 Intake Total 422 ml Output Total 1700 ml Balance -1278 ml (Noah Ford) Review of Systems/Exam ROS Neuro: Denies any headache, dizziness, numbness, tingling or weakness. Resp: Denies any shortness of breath or productive cough. Cardiac: Denies any chest pain, palpitations or irregular heart beat. GI: Denies any abdominal pain, N/V, or incontinence of bowel. MS: She does have some low back pain. Exam Resp: CTAB w/o W/R/R, equal excursion, non-laboured, on NC. CV: S1S2 w/RRR, w/o M/G/R. Monitor is sinus rhythm w/o any ectopy noted. GI: Abdomen soft, nontender, positive bowel sounds. Extremities: Warm, dry & pink, no deformity or clubbing. Neuro: AA&O x3. Speech clear & appropriate. Follows commands. Sensation to light touch grossly intact to all extremities. Moderate strength to major flexion & extension groups to all extremities. Back: Dry & intact surgical dressing w/o any shadowing noted, drain to gravity drainage w/sanguinous drainage, mildly TTP. (Noah Ford) Medications Current Medications Current Medications Medications (Trade) Dose Ordered Sig/Aleja Route Start Time Stop Time Status Last Admin (Tylenol Supp) 650 mg Q4H PRN RECTAL 11/05/16 18:30 11/05/16 18:30 (NS Flush) 2 ml UNSCH PRN IV FLUSH 11/06/16 12:30 4/13/17 08:31 (NS Flush) 2 ml BID IV FLUSH 11/06/16 21:00 11/25/16 20:17 (Tylenol) 650 mg Q6H PRN PO 11/06/16 12:30 11/23/16 11:18 (Zofran Inj) 4 mg Q6H PRN IV 11/06/16 12:30 11/25/16 18:20 (Dulcolax Supp) 10 mg DAILY PRN RECTAL 11/06/16 12:30 Miscellaneous Information 1 Q361D XX 11/06/16 12:30 (Chlorhexidine 2% Cloth) 3 pack Taper DAILY@04 TOP 11/07/16 04:00 11/03/17 03:59 11/26/16 04:00 (Chlorhexidine 2% Cloth) 3 pack UNSCH PRN TOP 11/06/16 12:30 (Peridex 0.12% Liq) 15 ml BID@08,20 MT 11/07/16 08:00 11/25/16 20:00 (D50w (Vial) Inj) 25 ml UNSCH PRN IV PUSH 11/07/16 04:15 (Glucagon Inj) 1 mg UNSCH PRN OTHER 11/07/16 04:15 Insulin Aspart 1 1 Q6H SQ 11/07/16 06:00 11/20/16 12:29 Potassium Chloride 100 ml @ 50 mls/hr Q2H PRN IV-CENTRAL 11/07/16 08:45 11/07/16 23:30 Potassium Chloride 100 ml @ 50 mls/hr Q2H PRN IV 11/07/16 08:45 Potassium Chloride 100 ml @ 25 mls/hr UNSCH PRN IV-CENTRAL 11/07/16 08:45 Potassium Chloride 100 ml @ 50 mls/hr Q2H PRN IV 11/07/16 08:45 11/17/16 07:53 (Magnesium Sulfate Inj/NS Inj) 100 ml @ 50 mls/hr UNSCH PRN IV 11/07/16 08:45 Magnesium Oxide 800 mg 800 mg UNSCH PRN PO 11/07/16 08:45 11/11/16 08:31 (Magnesium Sulfate Inj/NS Inj) 100 ml @ 50 mls/hr UNSCH PRN IV 11/07/16 08:45 11/18/16 06:47 Potassium Phosphate 2000 mg 2,000 mg Q4H PRN PO 11/07/16 08:45 11/12/16 08:42 (Sodium Phosphate Inj/NS 250 ml Inj) 250 ml @ 42 mls/hr UNSCH PRN IV 11/07/16 08:45 Potassium Phosphate 2000 mg 2,000 mg UNSCH PRN PO/TUBE 11/07/16 08:45 (Potassium Phosphate Inj/NS 250 ml Inj) 260 ml @ 42 mls/hr UNSCH PRN IV 11/07/16 08:45 11/10/16 06:09 (Pepcid Inj) 20 mg Q12H IV PUSH 11/07/16 16:00 11/26/16 16:06 Metoprolol Tartrate 2.5 mg 2.5 mg Q6H PRN IV PUSH 11/08/16 14:45 11/12/16 05:08 (1/2 NS 1000 ml Inj) 1,000 ml @ 0 mls/hr Q0M IV 11/09/16 09:53 11/18/16 20:46 (K-Phos) 500 mg DAILY PO 11/10/16 09:00 11/25/16 10:09 (Trandate Inj) 10 mg Q1H PRN IV 11/13/16 01:30 11/13/16 09:09 Sodium Chloride 2 gm 2 gm BID PO 11/13/16 14:00 11/25/16 20:17 (Ancef 2 Gm Premix) 50 ml @ 100 mls/hr Q8H IV 11/13/16 22:00 11/26/16 05:18 (Pill Splitter) 1 ea UNSCH PRN OTHER 11/19/16 10:15 (Dilaudid Pf Inj) 0.5 mg Q2HR PRN IV PUSH 11/20/16 18:15 11/24/16 16:15 (Norvasc) 10 mg DAILY PO 11/23/16 09:00 11/25/16 10:09 (Lopressor) 25 mg Q12HR PO 11/24/16 21:00 11/25/16 20:17 Miscellaneous Information ALL NURSING DEPARTME... UNSCH PRN .XX 11/26/16 09:38 11/27/16 09:37 (Noah Ford) Medical Decision Making MDM Remarks Status post repeat debridement lumbar wound dehiscence, replacement lumbar subarachnoid drain, indirect closure of CSF leak and dural tear on 11/12/16 S/P lumbar wound revision 11/26/16 More awake & alert, confusion resolved (Noah Ford) Plan Plan Remarks Discussed plan of care with patient & family Continue neuro checks Keep patient off of back Mobilise to chair w/assistance (Noah Ford) Attending Statement I have personally seen and examined the patient on the date of this note. Pertinent documentation and study results have been reviewed by the undersigned. I have personally developed the treatment plan and performed medical decision making. Agree with findings, exam, and treatment plan as noted above. Postoperative check reveals the patient to be sitting partially up in bed, awake , answering questions appropriately. Family at bedside. Mild relatively dark bloody drainage from the drain site. Discussed with nursing staff regarding mobilizing the patient off of her back and out of bed at least 2-3 times per day. Continue frequent wound dressing changes. (Pratik Melissa MD) Noah Ford Nov 26, 2016 16:57 Pratik Melissa MD Nov 26, 2016 20:34
--- NOTE | 2016-11-26 18:38 | HHI.PR ---
Subjective Remarks pt remains in icu resting quietly eating a bit but prealbumin still low Objective Vital Signs Date Time Temp Pulse Resp B/P Pulse Ox O2 Delivery O2 Flow Rate FiO2 11/26/16 18:00 81 11/26/16 16:00 97.7 78 20 113/58 99 11/26/16 16:00 78 11/26/16 14:00 75 11/26/16 12:00 97.7 74 17 119/56 100 11/26/16 12:00 90 11/26/16 11:55 97.6 85 16 118/60 98 Nasal Cannula 2 11/26/16 11:00 84 16 112/58 98 Nasal Cannula 2 11/26/16 10:30 97.8 81 16 104/51 98 Nasal Cannula 2 11/26/16 10:15 80 15 103/52 97 Nasal Cannula 2 11/26/16 10:00 79 15 101/58 96 Nasal Cannula 2 11/26/16 09:45 78 15 98/59 100 Nasal Cannula 3 11/26/16 09:38 97.4 78 16 97/55 99 Nasal Cannula 3 11/26/16 07:20 95 Nasal Cannula 2.50 11/26/16 06:00 80 11/26/16 04:00 98.1 77 24 152/72 98 11/26/16 04:00 77 11/26/16 02:00 77 11/26/16 00:00 77 11/26/16 00:00 98.0 77 11 144/64 98 11/25/16 22:00 81 11/25/16 20:00 98.2 85 22 138/60 96 Arterial Line 11/25/16 20:00 85 11/25/16 19:03 96 Nasal Cannula 2.50 I/O 11/25/16 11/25/16 11/25/16 11/26/16 11/26/16 11/26/16 07:00 15:00 23:00 07:00 15:00 23:00 Intake Total 220 ml 60 ml 288 ml 74 ml 1400 ml Output Total 300 ml 800 ml 250 ml 650 ml 965 ml Balance -80 ml -740 ml 38 ml -576 ml 435 ml Intake Oral 100 ml 10 ml 140 ml 0 ml 0 ml IV Total 120 ml 50 ml 148 ml 74 ml 900 ml Other 500 ml Output Urine Total 300 ml 800 ml 250 ml 650 ml 950 ml Drainage Total 5 ml Estimated Blood Loss 10 ml # Bowel Movements 1 2 1 1 0 Result Diagram: 11/26/1632911/26/16329 Imaging Inpatient Medications Acetaminophen (Tylenol) 650 mg Q6H PRN PO PAIN 1-6 AND/OR FEVER >101F Last administered on 11/23/16 11:18; Start 11/06/16 at 12:30 Acetaminophen 650 mg 650 mg Q4H PRN RECTAL FEVER > 101 Last administered on 11/05 18:30; Start 11/05/16 at 18:30 Albuterol/ Ipratropium (Duoneb Neb) 1 ampule Q2HR NEB PRN NEB SHORTNESS OF BREATH Last administered on 11/21/16 16:05; Start 11/17/16 at 15:45 Amlodipine Besylate (Norvasc) 10 mg DAILY PO Last administered on 11/25/16 10: 09; Start 11/23/16 at 09:00 Aztreonam 1000 mg/ Sodium Chloride 100 ml @ 200 mls/hr Q12H IV Last administered on 11/06/16 05:24; Start 11/05/16 at 18:00; Stop 11/06/16 at 12:26; Status DC Bisacodyl (Dulcolax Supp) 10 mg DAILY PRN RECTAL CONSTIPATION; Start 11/06/16 at 12:30 Cefazolin Sodium 2000 mg/Sodium Chloride 100 ml @ 200 mls/hr Q8HR IV Last administered on 11/13/16 15:12; Start 11/09/16 at 22:00; Stop 11/13/16 at 23:09 ; Status DC Cefazolin Sodium/ Dextrose (Ancef 2 Gm Premix) 50 ml @ 100 mls/hr Q8H IV Last administered on 11/26/16 05:18; Start 11/13/16 at 22:00 Cefepime HCl/ Sodium Chloride (Maxipime Inj/NS Inj) 100 ml @ 200 mls/hr ONCE ONCE IV Last administered on 11/05/16 03:36; Start 11/05/16 at 03:15; Stop at 03:44; Status DC Ceftazidime 2000 mg/Sodium Chloride 100 ml @ 200 mls/hr Q8H IV Last administered on 11/09/16 14:00; Start 11/06/16 at 14:00; Stop 11/09/16 at 21:17 ; Status DC Chlorhexidine Gluconate (Chlorhexidine 2% Cloth) 3 pack Taper DAILY@04 TOP Last administered on 11/26/16 04:00; Start 11/07/16 at 04:00; Stop 11/03/17 at 03 :59 Chlorhexidine Gluconate (Peridex 0.12% Liq) 15 ml BID@08,20 MT Last administered on 11/25/16 20:00; Start 11/07/16 at 08:00 Chlorhexidine Gluconate 3 pack 3 pack UNSCH PRN TOP HYGIENIC CARE; Start at 12:30 Dextrose (D50w (Vial) Inj) 25 ml UNSCH PRN IV PUSH HYPOGLYCEMIA-SEE COMMENTS; Start 11/07/16 at 04:15 Diatrizoate Meglum/ Diatrizoate Sod ( Gastrosuyapa Liq) 18 ml ONCE ONCE PO Last administered on 11/05/16 12:33; Start 11/05/16 at 11:49; Stop 11/05/16 at 11: 57; Status DC Famotidine (Pepcid Inj) 10 mg Q12H IV PUSH Last administered on 11/07/16 04:22 ; Start 11/06/16 at 16:00; Stop 11/07/16 at 15:36; Status DC Famotidine 20 mg 20 mg Q12H IV PUSH Last administered on 11/26/16 16:06; Start 11/07/16 at 16:00 Fat Emulsion Intravenous (Liposyn Iii 20% Inj) 250 ml @ 10 mls/hr Q24H IV Last administered on 11/16/16 19:42; Start 11/08/16 at 20:00; Stop 11/17/16 at 16:56; Status DC Fentanyl Citrate 250 ml @ 0 mls/hr TITRATE IV Last administered on 11/07/16 21: 10; Start 11/07/16 at 21:00; Stop 11/08/16 at 10:20; Status DC Furosemide (Lasix Inj) 20 mg NOW ONCE IV PUSH Last administered on 11/07/16 16 :27; Start 11/07/16 at 15:45; Stop 11/07/16 at 15:46; Status DC Furosemide 20 mg 20 mg ONCE ONCE IV PUSH Last administered on 11/13/16 15:12 ; Start 11/13/16 at 14:15; Stop 11/13/16 at 14:16; Status DC Glucagon (Glucagon Inj) 1 mg UNSCH PRN OTHER HYPOGLYCEMIA-SEE COMMENTS; Start 11/07/16 at 04:15 Hydromorphone HCl (Dilaudid Pf Inj) 0.5 mg Q2HR PRN IV PUSH PAIN SCALE 7 TO 10 Last administered on 11/24/16 16:15; Start 11/20/16 at 18:15 Hydromorphone HCl 1 mg 1 mg Q2HR PRN IV PUSH PAIN SCALE 7 TO 10 Last administered on 11/19/16 22:40; Start 11/08/16 at 15:45; Stop 11/20/16 at 18:08 ; Status DC Insulin Aspart 1 1 Q6H SQ Last administered on 11/20/16 12:29; Start 11/07/16 at 06:00 Insulin Human Regular (NovoLIN R SUPPLEMENTAL SCALE) 1 ACHS SLIDING SCALE SQ ; Start 11/06/16 at 16:00; Stop 11/07/16 at 04:14; Status DC Labetalol HCl (Trandate Inj) 10 mg Q1H PRN IV SYS BP GREATER THAN 170 MMHG Last administered on 11/13/16 09:09; Start 11/13/16 at 01:30 Magnesium Oxide 800 mg 800 mg UNSCH PRN PO For Magnesium 1.2 - 1.6 mg/dL Last administered on 11/11/16 08:31; Start 11/07/16 at 08:45 Magnesium Sulfate 2 gm/Sodium Chloride 100 ml @ 50 mls/hr UNSCH PRN IV For Magnesium 1.2 - 1.6 mg/dL Last administered on 11/18/16 06:47; Start 11/07/16 at 08:45 Magnesium Sulfate/ Sodium Chloride (Magnesium Sulfate Inj/NS Inj) 100 ml @ 50 mls/hr UNSCH PRN IV For Magnesium 0.9 - 1.1 mg/dL; Start 11/07/16 at 08:45 Metoprolol Tartrate (Lopressor) 25 mg Q12HR PO Last administered on 11/25/16 20:17; Start 11/24/16 at 21:00 Metoprolol Tartrate 2.5 mg 2.5 mg Q6H PRN IV PUSH SYS BP GREATER THAN 160 MMHG Last administered on 11/12/16 05:08; Start 11/08/16 at 14:45 Metronidazole (Flagyl 500 Mg Inj) 100 ml @ 100 mls/hr Q8H IV Last administered on 11/09/16 20:19; Start 11/06/16 at 13:00; Stop 11/09/16 at 21:17 ; Status DC Midazolam HCl 0.5 mg 0.5 mg Q5M PRN IV RESTLESSNESS X 4 DOSES MAX; Start at 15:00; Stop 11/06/16 at 15:21; Status DC Miscellaneous (Pill Splitter) 1 ea UNSCH PRN OTHER SEE LABEL COMMENTS; Start at 10:15 Miscellaneous Information ALL NURSING DEPARTME... UNSCH PRN .XX SEE LABEL COMMENTS; Start 11/26/16 at 09:38; Stop 11/27/16 at 09:37 Morphine Sulfate (Morphine Inj) 2 mg Q6H PRN IV PAIN SCALE 6-10 Last administered on 11/05/16 18:31; Start 11/05/16 at 18:00; Stop 11/06/16 at 12:36; Status DC Multivitamins 10 ml/Folic Acid 1 mg/Amino Acids/ Electrolytes/ Dextrose 1,010.2 ml @ 42 mls/hr Q24H IV Last administered on 11/16/16 19:42; Start 11/08/16 at 20:00; Stop 11/17/16 at 16:55; Status DC Multivitamins/ Folic Acid/Amino Acids/ Electrolytes/ Dextrose (Mvi-12 Inj/ Folvite Inj/ Clinimix E 4.25/5) 1,010.2 ml @ 42 mls/hr Q24H IV Last administered on 11/08/16 10:30; Start 11/08/16 at 11:00; Stop 11/08/16 at 19:59 ; Status DC Ondansetron HCl (Zofran Inj) 4 mg Q6H PRN IV NAUSEA OR VOMITING Last administered on 11/25/16 18:20; Start 11/06/16 at 12:30 Ondansetron HCl 4 mg 4 mg ONCE ONCE IV Last administered on 11/05/16 02:54; Start 11/05/16 at 02:00; Stop 11/05/16 at 02:01; Status DC Pantoprazole Sodium 40 mg 40 mg Q24H IV PUSH Last administered on 11/05/16 17: 05; Start 11/05/16 at 16:00; Stop 11/06/16 at 15:16; Status DC Patient Own Medication PT OWN MED: TESTOSTERONE TOPI... DAILY TOPICAL ; Start at 09:00; Status Future Hold Pharmacy Profile Note (Vancomycin Consult Pharmacy) ml @ 0 mls/hr UNSCH OTHER ; Start 11/05/16 at 16:45; Stop 11/12/16 at 10:22; Status DC Potassium Phosphate 2000 mg 2,000 mg UNSCH PRN PO/TUBE SEE LABEL COMMENTS; Start 11/07/16 at 08:45 Potassium Phosphate 500 mg 500 mg DAILY PO Last administered on 11/25/16 10:09 ; Start 11/10/16 at 09:00 Potassium Phosphate/Sodium Chloride (Potassium Phosphate Inj/NS 250 ml Inj) 260 ml @ 42 mls/hr UNSCH PRN IV SEE LABEL COMMENTS Last administered on 11/10/16 06:09; Start 11/07/16 at 08:45 Potassium Chloride 100 ml @ 50 mls/hr Q2H PRN IV For Potassium 3.3 - 3.5 mEq/ L Last administered on 11/17/16 07:53; Start 11/07/16 at 08:45 Propofol (Diprivan 1000 Mg/100ml Inj) 100 ml @ 0 mls/hr TITRATE IV Last administered on 11/17/16 10:23; Start 11/07/16 at 03:45; Stop 11/17/16 at 15:47 ; Status DC Sodium Chloride (NS 1000 ml Inj) 100 ml @ 1,000 mls/hr Q6M ONCE IV ; Start 11/06 at 13:00; Stop 11/06/16 at 13:05; Status DC Sodium Chloride (NS Flush) 2 ml BID IV FLUSH Last administered on 11/25/16 20: 17; Start 11/06/16 at 21:00 Sodium Chloride (Sodium Chloride) 2 gm BID PO Last administered on 11/25/16 20 :17; Start 11/13/16 at 14:00 Sodium Phosphate/ Sodium Chloride (Sodium Phosphate Inj/NS 250 ml Inj) 250 ml @ 42 mls/hr UNSCH PRN IV For Phosphorus < 2.5 mg/dL; Start 11/07/16 at 08:45 Vancomycin HCl 1000 mg/Sodium Chloride 250 ml @ 250 mls/hr Q24H IV ; Start 11/05 at 17:00; Stop 11/05/16 at 17:00; Status DC Vancomycin HCl 1250 mg/Sodium Chloride 262.5 ml @ 250 mls/hr Q24H IV Last administered on 11/09/16 09:13; Start 11/07/16 at 09:00; Stop 11/09/16 at 10:39 ; Status DC Vancomycin HCl 1500 mg/Sodium Chloride 515 ml @ 257.5 mls/ hr Q18H IV ; Start 11/11/16 at 18:00; Stop 11/11/16 at 18:22; Status DC Vancomycin HCl/ Sodium Chloride (Vancomycin Inj/ NS 250 ml Inj) 262.5 ml @ 250 mls/hr Q18H IV Last administered on 11/11/16 15:23; Start 11/10/16 at 03:00; Stop 11/11/16 at 16:08; Status DC Vancomycin HCl/ Sodium Chloride (Vancomycin Inj/ NS 500 ml Inj) 515 ml @ 257.5 mls/ hr Q18H IV Last administered on 11/12/16 05:49; Start 11/12/16 at 06:00; Stop 11/12/16 at 10:22; Status DC Procedures replacement of CSF drain and dural patch 11/12 evacuation of epidural abscess 11/07 had laminectomy Objective Remarks CONSTITUTIONAL/GENERAL: This is an elderly female resting quietly TUBES/LINES/DRAINS: SKIN: No jaundice pale , rashes, or lesions. Skin temperature appropriate. Not diaphoretic. HEAD: Atraumatic. Normocephalic. EYES: follows me . Fundi not examined. ENT: Nose without bleeding or purulent drainage. Throat without visible erythema, exudates, masses, or lesions intubated on vent. NECK: Trachea midline. Supple, nontender. No palpable thyroid enlargement or nodularity. CARDIOVASCULAR: Regular rate and rhythm without murmurs, gallops, or rubs. No JVD. Peripheral pulses symmetric RESPIRATORY/CHEST: Symmetric, unlabored respirations. Clear to auscultation. Breath sounds equal bilaterally. No wheezes, rales, or rhonchi. GASTROINTESTINAL: Abdomen soft, some tenderness nausea resolved nondistended. No hepato-splenomegaly, or palpable masses. No guarding. Bowel sounds present. GENITOURINARY: Without palpable bladder distension. Jean-Baptiste catheter in place. MUSCULOSKELETAL: Extremities without clubbing, cyanosis, or edema. No joint tenderness or effusion noted. No calf tenderness. No mottling or clubbing.lumbar wound with drainage generalized weakness present LYMPHATICS: No palpable cervical or supraclavicular adenopathy.mild edema present NEUROLOGICAL: sedated Motor and sensory grossly within normal limits. Follows commands. Moves all extremities. cfs drain in place currently clamped PSYCHIATRIC: No obvious anxiety/depression. Medications and IVs Inpatient Medications Acetaminophen (Tylenol) 650 mg Q6H PRN PO PAIN 1-6 AND/OR FEVER >101F Last administered on 11/23/16 11:18; Start 11/06/16 at 12:30 Acetaminophen 650 mg 650 mg Q4H PRN RECTAL FEVER > 101 Last administered on 11/05 18:30; Start 11/05/16 at 18:30 Albuterol/ Ipratropium (Duoneb Neb) 1 ampule Q2HR NEB PRN NEB SHORTNESS OF BREATH Last administered on 11/21/16 16:05; Start 11/17/16 at 15:45 Amlodipine Besylate (Norvasc) 10 mg DAILY PO Last administered on 11/25/16 10: 09; Start 11/23/16 at 09:00 Aztreonam 1000 mg/ Sodium Chloride 100 ml @ 200 mls/hr Q12H IV Last administered on 11/06/16 05:24; Start 11/05/16 at 18:00; Stop 11/06/16 at 12:26; Status DC Bisacodyl (Dulcolax Supp) 10 mg DAILY PRN RECTAL CONSTIPATION; Start 11/06/16 at 12:30 Cefazolin Sodium 2000 mg/Sodium Chloride 100 ml @ 200 mls/hr Q8HR IV Last administered on 11/13/16 15:12; Start 11/09/16 at 22:00; Stop 11/13/16 at 23:09 ; Status DC Cefazolin Sodium/ Dextrose (Ancef 2 Gm Premix) 50 ml @ 100 mls/hr Q8H IV Last administered on 11/26/16 05:18; Start 11/13/16 at 22:00 Cefepime HCl/ Sodium Chloride (Maxipime Inj/NS Inj) 100 ml @ 200 mls/hr ONCE ONCE IV Last administered on 11/05/16 03:36; Start 11/05/16 at 03:15; Stop at 03:44; Status DC Ceftazidime 2000 mg/Sodium Chloride 100 ml @ 200 mls/hr Q8H IV Last administered on 11/09/16 14:00; Start 11/06/16 at 14:00; Stop 11/09/16 at 21:17 ; Status DC Chlorhexidine Gluconate (Chlorhexidine 2% Cloth) 3 pack Taper DAILY@04 TOP Last administered on 11/26/16 04:00; Start 11/07/16 at 04:00; Stop 11/03/17 at 03 :59 Chlorhexidine Gluconate (Peridex 0.12% Liq) 15 ml BID@08,20 MT Last administered on 11/25/16 20:00; Start 11/07/16 at 08:00 Chlorhexidine Gluconate 3 pack 3 pack UNSCH PRN TOP HYGIENIC CARE; Start at 12:30 Dextrose (D50w (Vial) Inj) 25 ml UNSCH PRN IV PUSH HYPOGLYCEMIA-SEE COMMENTS; Start 11/07/16 at 04:15 Diatrizoate Meglum/ Diatrizoate Sod ( Gastrosuyapa Liq) 18 ml ONCE ONCE PO Last administered on 11/05/16 12:33; Start 11/05/16 at 11:49; Stop 11/05/16 at 11: 57; Status DC Famotidine (Pepcid Inj) 10 mg Q12H IV PUSH Last administered on 11/07/16 04:22 ; Start 11/06/16 at 16:00; Stop 11/07/16 at 15:36; Status DC Famotidine 20 mg 20 mg Q12H IV PUSH Last administered on 11/26/16 16:06; Start 11/07/16 at 16:00 Fat Emulsion Intravenous (Liposyn Iii 20% Inj) 250 ml @ 10 mls/hr Q24H IV Last administered on 11/16/16 19:42; Start 11/08/16 at 20:00; Stop 11/17/16 at 16:56; Status DC Fentanyl Citrate 250 ml @ 0 mls/hr TITRATE IV Last administered on 11/07/16 21: 10; Start 11/07/16 at 21:00; Stop 11/08/16 at 10:20; Status DC Furosemide (Lasix Inj) 20 mg NOW ONCE IV PUSH Last administered on 11/07/16 16 :27; Start 11/07/16 at 15:45; Stop 11/07/16 at 15:46; Status DC Furosemide 20 mg 20 mg ONCE ONCE IV PUSH Last administered on 11/13/16 15:12 ; Start 11/13/16 at 14:15; Stop 11/13/16 at 14:16; Status DC Glucagon (Glucagon Inj) 1 mg UNSCH PRN OTHER HYPOGLYCEMIA-SEE COMMENTS; Start 11/07/16 at 04:15 Hydromorphone HCl (Dilaudid Pf Inj) 0.5 mg Q2HR PRN IV PUSH PAIN SCALE 7 TO 10 Last administered on 11/24/16 16:15; Start 11/20/16 at 18:15 Hydromorphone HCl 1 mg 1 mg Q2HR PRN IV PUSH PAIN SCALE 7 TO 10 Last administered on 11/19/16 22:40; Start 11/08/16 at 15:45; Stop 11/20/16 at 18:08 ; Status DC Insulin Aspart 1 1 Q6H SQ Last administered on 11/20/16 12:29; Start 11/07/16 at 06:00 Insulin Human Regular (NovoLIN R SUPPLEMENTAL SCALE) 1 ACHS SLIDING SCALE SQ ; Start 11/06/16 at 16:00; Stop 11/07/16 at 04:14; Status DC Labetalol HCl (Trandate Inj) 10 mg Q1H PRN IV SYS BP GREATER THAN 170 MMHG Last administered on 11/13/16 09:09; Start 11/13/16 at 01:30 Magnesium Oxide 800 mg 800 mg UNSCH PRN PO For Magnesium 1.2 - 1.6 mg/dL Last administered on 11/11/16 08:31; Start 11/07/16 at 08:45 Magnesium Sulfate 2 gm/Sodium Chloride 100 ml @ 50 mls/hr UNSCH PRN IV For Magnesium 1.2 - 1.6 mg/dL Last administered on 11/18/16 06:47; Start 11/07/16 at 08:45 Magnesium Sulfate/ Sodium Chloride (Magnesium Sulfate Inj/NS Inj) 100 ml @ 50 mls/hr UNSCH PRN IV For Magnesium 0.9 - 1.1 mg/dL; Start 11/07/16 at 08:45 Metoprolol Tartrate (Lopressor) 25 mg Q12HR PO Last administered on 11/25/16 20:17; Start 11/24/16 at 21:00 Metoprolol Tartrate 2.5 mg 2.5 mg Q6H PRN IV PUSH SYS BP GREATER THAN 160 MMHG Last administered on 11/12/16 05:08; Start 11/08/16 at 14:45 Metronidazole (Flagyl 500 Mg Inj) 100 ml @ 100 mls/hr Q8H IV Last administered on 11/09/16 20:19; Start 11/06/16 at 13:00; Stop 11/09/16 at 21:17 ; Status DC Midazolam HCl 0.5 mg 0.5 mg Q5M PRN IV RESTLESSNESS X 4 DOSES MAX; Start at 15:00; Stop 11/06/16 at 15:21; Status DC Miscellaneous (Pill Splitter) 1 ea UNSCH PRN OTHER SEE LABEL COMMENTS; Start at 10:15 Miscellaneous Information ALL NURSING DEPARTME... UNSCH PRN .XX SEE LABEL COMMENTS; Start 11/26/16 at 09:38; Stop 11/27/16 at 09:37 Morphine Sulfate (Morphine Inj) 2 mg Q6H PRN IV PAIN SCALE 6-10 Last administered on 11/05/16 18:31; Start 11/05/16 at 18:00; Stop 11/06/16 at 12:36; Status DC Multivitamins 10 ml/Folic Acid 1 mg/Amino Acids/ Electrolytes/ Dextrose 1,010.2 ml @ 42 mls/hr Q24H IV Last administered on 11/16/16 19:42; Start 11/08/16 at 20:00; Stop 11/17/16 at 16:55; Status DC Multivitamins/ Folic Acid/Amino Acids/ Electrolytes/ Dextrose (Mvi-12 Inj/ Folvite Inj/ Clinimix E 4.25/5) 1,010.2 ml @ 42 mls/hr Q24H IV Last administered on 11/08/16 10:30; Start 11/08/16 at 11:00; Stop 11/08/16 at 19:59 ; Status DC Ondansetron HCl (Zofran Inj) 4 mg Q6H PRN IV NAUSEA OR VOMITING Last administered on 11/25/16 18:20; Start 11/06/16 at 12:30 Ondansetron HCl 4 mg 4 mg ONCE ONCE IV Last administered on 11/05/16 02:54; Start 11/05/16 at 02:00; Stop 11/05/16 at 02:01; Status DC Pantoprazole Sodium 40 mg 40 mg Q24H IV PUSH Last administered on 11/05/16 17: 05; Start 11/05/16 at 16:00; Stop 11/06/16 at 15:16; Status DC Patient Own Medication PT OWN MED: TESTOSTERONE TOPI... DAILY TOPICAL ; Start at 09:00; Status Future Hold Pharmacy Profile Note (Vancomycin Consult Pharmacy) ml @ 0 mls/hr UNSCH OTHER ; Start 11/05/16 at 16:45; Stop 11/12/16 at 10:22; Status DC Potassium Phosphate 2000 mg 2,000 mg UNSCH PRN PO/TUBE SEE LABEL COMMENTS; Start 11/07/16 at 08:45 Potassium Phosphate 500 mg 500 mg DAILY PO Last administered on 11/25/16 10:09 ; Start 11/10/16 at 09:00 Potassium Phosphate/Sodium Chloride (Potassium Phosphate Inj/NS 250 ml Inj) 260 ml @ 42 mls/hr UNSCH PRN IV SEE LABEL COMMENTS Last administered on 11/10/16 06:09; Start 11/07/16 at 08:45 Potassium Chloride 100 ml @ 50 mls/hr Q2H PRN IV For Potassium 3.3 - 3.5 mEq/ L Last administered on 11/17/16 07:53; Start 11/07/16 at 08:45 Propofol (Diprivan 1000 Mg/100ml Inj) 100 ml @ 0 mls/hr TITRATE IV Last administered on 11/17/16 10:23; Start 11/07/16 at 03:45; Stop 11/17/16 at 15:47 ; Status DC Sodium Chloride (NS 1000 ml Inj) 100 ml @ 1,000 mls/hr Q6M ONCE IV ; Start 11/06 at 13:00; Stop 11/06/16 at 13:05; Status DC Sodium Chloride (NS Flush) 2 ml BID IV FLUSH Last administered on 11/25/16 20: 17; Start 11/06/16 at 21:00 Sodium Chloride (Sodium Chloride) 2 gm BID PO Last administered on 11/25/16 20 :17; Start 11/13/16 at 14:00 Sodium Phosphate/ Sodium Chloride (Sodium Phosphate Inj/NS 250 ml Inj) 250 ml @ 42 mls/hr UNSCH PRN IV For Phosphorus < 2.5 mg/dL; Start 11/07/16 at 08:45 Vancomycin HCl 1000 mg/Sodium Chloride 250 ml @ 250 mls/hr Q24H IV ; Start 11/05 at 17:00; Stop 11/05/16 at 17:00; Status DC Vancomycin HCl 1250 mg/Sodium Chloride 262.5 ml @ 250 mls/hr Q24H IV Last administered on 11/09/16 09:13; Start 11/07/16 at 09:00; Stop 11/09/16 at 10:39 ; Status DC Vancomycin HCl 1500 mg/Sodium Chloride 515 ml @ 257.5 mls/ hr Q18H IV ; Start 11/11/16 at 18:00; Stop 11/11/16 at 18:22; Status DC Vancomycin HCl/ Sodium Chloride (Vancomycin Inj/ NS 250 ml Inj) 262.5 ml @ 250 mls/hr Q18H IV Last administered on 11/11/16 15:23; Start 11/10/16 at 03:00; Stop 11/11/16 at 16:08; Status DC Vancomycin HCl/ Sodium Chloride (Vancomycin Inj/ NS 500 ml Inj) 515 ml @ 257.5 mls/ hr Q18H IV Last administered on 11/12/16 05:49; Start 11/12/16 at 06:00; Stop 11/12/16 at 10:22; Status DC Assessment and Plan Problem List: (1) Nausea & vomiting Status: Resolved (2) Weakness Status: Chronic (3) Leukocytosis Status: Resolved Plan: surgical site debrided wbc improved hr and temp controlled blood cultures show gram pos cocci further id pending (4) Hypokalemia Status: Resolved Plan: on potassium replacement protocall (5) Dural tear Status: Acute Plan: treated surgically with blood and dural patch drain removed Assessment and Plan pt progressing slowly csf drain removed vss responsive working with PT will need [facility] [place] prealbumin 12 testosterone levels still pending no testosterone gel in hospital pharmacy will prescribe androgel 1.66% daily (or equilavent) 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
[2016-11-26] MEDS: HYDROmorphone HCL PF 1 MG/ML VIAL IV PUSH PRN (19:04)
--- NOTE | 2016-11-26 20:33 | PD.OP ---
Operative Report Date of Surgery: Nov 26, 2016 Preoperative Diagnosis: (1) Spinal epidural abscess (2) Dural tear Spinal epidural abscess Dural tear post laminectomy Postoperative Diagnosis: (1) Spinal epidural abscess (2) Dural tear Spinal epidural abscess Dural tear post laminectomy Procedure: Debridement and partial closure lumbar wound dehiscence. Placement lumbar epidural drain Anesthesia: Gen. Surgeon: Pratik Melissa Code Enforcement Supervisor(s): Toya Goodson Operation and Findings: Indications: 86-year-old female with recent lumbar decompressive laminectomy at [facility], presents approximately 2 weeks postoperative with lumbar wound dehiscence. Epidural abscess, CSF leak with prior dural tear. She has undergone 2 previous procedures for abscess drainage, and direct repair of dural tear. Recently no definite evidence of persistent spinal fluid leak, but wound with poor healing, remaining macerated tissues at the superficial incision site with mild intermittent drainage. Procedure in detail: Patient brought into the operating room and general endotracheal anesthesia induced without difficulty Jean-Baptiste catheter, DAJUAN hose, sequential compression devices in place Patient placed in prone position on the concentric Richard table with side bolsters and all extruded appropriately padded Lumbar region prepped and draped in a sterile fashion Appropriate timeout procedure was performed with all personnel present and in agreement The superficial sutures were removed. A relatively small tract with dark brown fluid noted extending along the inferior L3 lamina up to the incision site. Region well irrigated with antibiotic irrigation after swab culture obtained. No definite persistent CSF fluid leak encountered, but mild slow egress of dark serosanguineous fluid. A Codman Bactiseal catheter soaked in gentamicin irrigation was placed at the wound site and brought out in the mid lumbar region on the left side with a trocar and secured to the skin with nylon suture and attached to the sterile drainage bag. The wound was closed with 2-0 Vicryl suture for the deep and superficial fascia with 0 Vicryl suture subcutaneous closure. The skin edges were somewhat macerated and it was elected to bring these together with bolster sutures of 3-0 Prolene. Sterile dressing applied. A Biopatch was placed at the drain site. Patient taken to recovery room in stable condition CORRECT at the end of the case Estimated blood loss 10 cc Deep wound culture sent to microbiology Pratik Melissa MD Nov 26, 2016 20:32
[2016-11-27] VITALS (11 sets, daily range): BP systolic 125–155; BP diastolic 58–65; PULSE 68–87; RESP 15–23; TEMP 97–98.8; O2SAT 92–97
[2016-11-27 03:43] LABS: AUTOMATED NEUTROPHIL # 3.6 TH/MM3 (1.8-7.7); BASOPHIL % 0.5 % (0.0-2.0); EOSINOPHIL # 0.2 TH/MM3 (0-0.4); EOSINOPHIL % 3.9 % (0.0-4.0); HEMO FLAGS DIFF FINAL; LYMPH % 6.2 % (9.0-44.0); LYMPHOCYTE # 0.3 TH/MM3 (1.0-4.8); MEAN CELL VOLUME 93.5 FL (80.0-100.0); MEAN CORPUSCULAR HEMOGLOBIN 31.6 PG (27.0-34.0); MEAN CORPUSCULAR HGB CONC 33.8 % (32.0-36.0); MONO % 13.5 % (0.0-8.0); NEUT % 75.9 % (16.0-70.0); PLATELET COUNT 225 TH/MM3 (150-450); RED BLOOD COUNT 2.56 MIL/MM3 (4.00-5.30); RED CELL DISTRIBUTION WIDTH 14.7 % (11.6-17.2); WHITE BLOOD COUNT 4.7 TH/MM3 (4.0-11.0)
[2016-11-27] MEDS: CHLORHEXIDINE GLUCONATE 2 % 1 PACK (2 CLOTHS) TOP SCH (04:00)
[2016-11-27 04:12] LABS: BICARBONATE 26.6 MEQ/L (21.0-32.0); POTASSIUM 4.5 MEQ/L (3.5-5.1)
[2016-11-27] MEDS: ceFAZolin 2 GM PREMIX 50 ML IV SCH ×3 (04:53→21:44)
[2016-11-27] MEDS: FAMOTIDINE 20 MG/2 ML VIAL IV PUSH SCH ×2 (04:54→18:04)
[2016-11-27] MEDS: INSULIN ASPART SUPPLEMENTAL SCALE SQ SCH ×2 (04:54)
[2016-11-27] MEDS: CHLORHEXIDINE 0.12% (ORAL KIT) 15 ML CUP MT SCH ×2 (07:35→20:00)
[2016-11-27] MEDS: SODIUM CHLORIDE 0.9% FLUSH 10 ML FLUSH IV FLUSH SCH ×2 (08:43→20:40)
[2016-11-27] MEDS: METOPROLOL TARTRATE 25 MG TAB PO SCH ×2 (08:43→20:39)
[2016-11-27] MEDS: SODIUM CHLORIDE 1 GRAM TAB PO SCH ×2 (08:43→20:39)
[2016-11-27] MEDS: POTASSIUM PHOSPHATE MONOBASIC 500 MG TAB PO SCH (08:43)
[2016-11-27] MEDS ORDERED: TESTOSTERONE TOPICAL SCH (09:00)
--- NOTE | 2016-11-27 11:34 | HHI.PR ---
Subjective Remarks pt remains in icu resting quietly eating a bit but prealbumin still low await testosterone results and attempting to obtain gel from op pharmacy Objective Vital Signs Date Time Temp Pulse Resp B/P Pulse Ox O2 Delivery O2 Flow Rate FiO2 11/27/16 10:00 68 11/27/16 08:00 71 11/27/16 08:00 98.1 79 22 135/61 95 11/27/16 06:00 76 11/27/16 04:00 98.6 77 15 155/65 97 11/27/16 04:00 77 11/27/16 02:00 81 11/27/16 00:00 98.8 86 19 139/63 96 11/27/16 00:00 86 11/26/16 22:00 85 11/26/16 20:00 98.4 84 16 119/59 97 11/26/16 20:00 84 11/26/16 19:02 97 Nasal Cannula 2.00 11/26/16 18:00 81 11/26/16 16:00 97.7 78 20 113/58 99 11/26/16 16:00 78 11/26/16 14:00 75 11/26/16 12:00 97.7 74 17 119/56 100 11/26/16 12:00 90 11/26/16 11:55 97.6 85 16 118/60 98 Nasal Cannula 2 I/O 11/26/16 11/26/16 11/26/16 11/27/16 11/27/16 11/27/16 07:00 15:00 23:00 07:00 15:00 23:00 Intake Total 74 ml 1400 ml 100 ml 50 ml Output Total 650 ml 965 ml 520 ml 300 ml Balance -576 ml 435 ml -420 ml -250 ml Intake Oral 0 ml 0 ml 50 ml IV Total 74 ml 900 ml 50 ml 50 ml Other 500 ml Output Urine Total 650 ml 950 ml 500 ml 300 ml Drainage Total 5 ml 20 ml Estimated Blood Loss 10 ml # Bowel Movements 1 0 1 0 Result Diagram: 11/27/16 0320 11/27/16 0320 Procedures replacement of CSF drain and dural patch 11/12 evacuation of epidural abscess 11/07 had laminectomy Objective Remarks CONSTITUTIONAL/GENERAL: This is an elderly female resting quietly improving alertness TUBES/LINES/DRAINS: SKIN: No jaundice pale , rashes, or lesions. Skin temperature appropriate. Not diaphoretic. HEAD: Atraumatic. Normocephalic. EYES: follows me . Fundi not examined. ENT: Nose without bleeding or purulent drainage. Throat without visible erythema, exudates, masses, or lesions intubated on vent. NECK: Trachea midline. Supple, nontender. No palpable thyroid enlargement or nodularity. CARDIOVASCULAR: Regular rate and rhythm without murmurs, gallops, or rubs. No JVD. Peripheral pulses symmetric RESPIRATORY/CHEST: Symmetric, unlabored respirations. Clear to auscultation. Breath sounds equal bilaterally. No wheezes, rales, or rhonchi. GASTROINTESTINAL: Abdomen soft, some tenderness nausea resolved nondistended. No hepato-splenomegaly, or palpable masses. No guarding. Bowel sounds present. GENITOURINARY: Without palpable bladder distension. Jean-Baptiste catheter in place. MUSCULOSKELETAL: Extremities without clubbing, cyanosis, or edema. No joint tenderness or effusion noted. No calf tenderness. No mottling or clubbing.lumbar wound with drainage generalized weakness present LYMPHATICS: No palpable cervical or supraclavicular adenopathy.mild edema present NEUROLOGICAL: sedated Motor and sensory grossly within normal limits. Follows commands. Moves all extremities. cfs drain in place currently clamped PSYCHIATRIC: No obvious anxiety/depression. Medications and IVs Inpatient Medications Acetaminophen (Tylenol) 650 mg Q6H PRN PO PAIN 1-6 AND/OR FEVER >101F Last administered on 11/23/16 11:18; Start 11/06/16 at 12:30 Acetaminophen 650 mg 650 mg Q4H PRN RECTAL FEVER > 101 Last administered on 11/05 18:30; Start 11/05/16 at 18:30 Albuterol/ Ipratropium (Duoneb Neb) 1 ampule Q2HR NEB PRN NEB SHORTNESS OF BREATH Last administered on 11/21/16 16:05; Start 11/17/16 at 15:45 Amlodipine Besylate (Norvasc) 10 mg DAILY PO Last administered on 11/27/16 08: 43; Start 11/23/16 at 09:00 Aztreonam 1000 mg/ Sodium Chloride 100 ml @ 200 mls/hr Q12H IV Last administered on 11/06/16 05:24; Start 11/05/16 at 18:00; Stop 11/06/16 at 12:26; Status DC Bisacodyl (Dulcolax Supp) 10 mg DAILY PRN RECTAL CONSTIPATION; Start 11/06/16 at 12:30 Cefazolin Sodium 2000 mg/Sodium Chloride 100 ml @ 200 mls/hr Q8HR IV Last administered on 11/13/16 15:12; Start 11/09/16 at 22:00; Stop 11/13/16 at 23:09 ; Status DC Cefazolin Sodium/ Dextrose (Ancef 2 Gm Premix) 50 ml @ 100 mls/hr Q8H IV Last administered on 11/27/16 04:53; Start 11/13/16 at 22:00 Cefepime HCl/ Sodium Chloride (Maxipime Inj/NS Inj) 100 ml @ 200 mls/hr ONCE ONCE IV Last administered on 11/05/16 03:36; Start 11/05/16 at 03:15; Stop at 03:44; Status DC Ceftazidime 2000 mg/Sodium Chloride 100 ml @ 200 mls/hr Q8H IV Last administered on 11/09/16 14:00; Start 11/06/16 at 14:00; Stop 11/09/16 at 21:17 ; Status DC Chlorhexidine Gluconate (Chlorhexidine 2% Cloth) 3 pack Taper DAILY@04 TOP Last administered on 11/27/16 04:00; Start 11/07/16 at 04:00; Stop 11/03/17 at 03 :59 Chlorhexidine Gluconate (Peridex 0.12% Liq) 15 ml BID@08,20 MT Last administered on 11/27/16 07:35; Start 11/07/16 at 08:00 Chlorhexidine Gluconate 3 pack 3 pack UNSCH PRN TOP HYGIENIC CARE; Start at 12:30 Dextrose (D50w (Vial) Inj) 25 ml UNSCH PRN IV PUSH HYPOGLYCEMIA-SEE COMMENTS; Start 11/07/16 at 04:15 Diatrizoate Meglum/ Diatrizoate Sod ( Gastroview Liq) 18 ml ONCE ONCE PO Last administered on 11/05/16 12:33; Start 11/05/16 at 11:49; Stop 11/05/16 at 11: 57; Status DC Famotidine (Pepcid Inj) 10 mg Q12H IV PUSH Last administered on 11/07/16 04:22 ; Start 11/06/16 at 16:00; Stop 11/07/16 at 15:36; Status DC Famotidine 20 mg 20 mg Q12H IV PUSH Last administered on 11/27/16 04:54; Start 11/07/16 at 16:00 Fat Emulsion Intravenous (Liposyn Iii 20% Inj) 250 ml @ 10 mls/hr Q24H IV Last administered on 11/16/16 19:42; Start 11/08/16 at 20:00; Stop 11/17/16 at 16:56; Status DC Fentanyl Citrate 250 ml @ 0 mls/hr TITRATE IV Last administered on 11/07/16 21: 10; Start 11/07/16 at 21:00; Stop 11/08/16 at 10:20; Status DC Furosemide (Lasix Inj) 20 mg NOW ONCE IV PUSH Last administered on 11/07/16 16 :27; Start 11/07/16 at 15:45; Stop 11/07/16 at 15:46; Status DC Furosemide 20 mg 20 mg ONCE ONCE IV PUSH Last administered on 11/13/16 15:12 ; Start 11/13/16 at 14:15; Stop 11/13/16 at 14:16; Status DC Glucagon (Glucagon Inj) 1 mg UNSCH PRN OTHER HYPOGLYCEMIA-SEE COMMENTS; Start 11/07/16 at 04:15 Hydromorphone HCl (Dilaudid Pf Inj) 0.5 mg Q2HR PRN IV PUSH PAIN SCALE 7 TO 10 Last administered on 11/26/16 19:04; Start 11/20/16 at 18:15 Hydromorphone HCl 1 mg 1 mg Q2HR PRN IV PUSH PAIN SCALE 7 TO 10 Last administered on 11/19/16 22:40; Start 11/08/16 at 15:45; Stop 11/20/16 at 18:08 ; Status DC Insulin Aspart 1 1 Q6H SQ Last administered on 11/20/16 12:29; Start 11/07/16 at 06:00 Insulin Human Regular (NovoLIN R SUPPLEMENTAL SCALE) 1 ACHS SLIDING SCALE SQ ; Start 11/06/16 at 16:00; Stop 11/07/16 at 04:14; Status DC Labetalol HCl (Trandate Inj) 10 mg Q1H PRN IV SYS BP GREATER THAN 170 MMHG Last administered on 11/13/16 09:09; Start 11/13/16 at 01:30 Magnesium Oxide 800 mg 800 mg UNSCH PRN PO For Magnesium 1.2 - 1.6 mg/dL Last administered on 11/11/16 08:31; Start 11/07/16 at 08:45 Magnesium Sulfate 2 gm/Sodium Chloride 100 ml @ 50 mls/hr UNSCH PRN IV For Magnesium 1.2 - 1.6 mg/dL Last administered on 11/18/16 06:47; Start 11/07/16 at 08:45 Magnesium Sulfate/ Sodium Chloride (Magnesium Sulfate Inj/NS Inj) 100 ml @ 50 mls/hr UNSCH PRN IV For Magnesium 0.9 - 1.1 mg/dL; Start 11/07/16 at 08:45 Metoprolol Tartrate (Lopressor) 25 mg Q12HR PO Last administered on 11/27/16 08:43; Start 11/24/16 at 21:00 Metoprolol Tartrate 2.5 mg 2.5 mg Q6H PRN IV PUSH SYS BP GREATER THAN 160 MMHG Last administered on 11/12/16 05:08; Start 11/08/16 at 14:45 Metronidazole (Flagyl 500 Mg Inj) 100 ml @ 100 mls/hr Q8H IV Last administered on 11/09/16 20:19; Start 11/06/16 at 13:00; Stop 11/09/16 at 21:17 ; Status DC Midazolam HCl 0.5 mg 0.5 mg Q5M PRN IV RESTLESSNESS X 4 DOSES MAX; Start at 15:00; Stop 11/06/16 at 15:21; Status DC Miscellaneous (Pill Splitter) 1 ea UNSCH PRN OTHER SEE LABEL COMMENTS; Start at 10:15 Miscellaneous Information ALL NURSING DEPARTME... UNSCH PRN .XX SEE LABEL COMMENTS; Start 11/26/16 at 09:38; Stop 11/27/16 at 09:37; Status DC Morphine Sulfate (Morphine Inj) 2 mg Q6H PRN IV PAIN SCALE 6-10 Last administered on 11/05/16 18:31; Start 11/05/16 at 18:00; Stop 11/06/16 at 12:36; Status DC Multivitamins 10 ml/Folic Acid 1 mg/Amino Acids/ Electrolytes/ Dextrose 1,010.2 ml @ 42 mls/hr Q24H IV Last administered on 11/16/16 19:42; Start 11/08/16 at 20:00; Stop 11/17/16 at 16:55; Status DC Multivitamins/ Folic Acid/Amino Acids/ Electrolytes/ Dextrose (Mvi-12 Inj/ Folvite Inj/ Clinimix E 4.25/5) 1,010.2 ml @ 42 mls/hr Q24H IV Last administered on 11/08/16 10:30; Start 11/08/16 at 11:00; Stop 11/08/16 at 19:59 ; Status DC Ondansetron HCl (Zofran Inj) 4 mg Q6H PRN IV NAUSEA OR VOMITING Last administered on 11/25/16 18:20; Start 11/06/16 at 12:30 Ondansetron HCl 4 mg 4 mg ONCE ONCE IV Last administered on 11/05/16 02:54; Start 11/05/16 at 02:00; Stop 11/05/16 at 02:01; Status DC Pantoprazole Sodium 40 mg 40 mg Q24H IV PUSH Last administered on 11/05/16 17: 05; Start 11/05/16 at 16:00; Stop 11/06/16 at 15:16; Status DC Patient Own Medication PT OWN MED: TESTOSTERONE TOPI... DAILY TOPICAL ; Start at 09:00; Status Hold Pharmacy Profile Note (Vancomycin Consult Pharmacy) ml @ 0 mls/hr UNSCH OTHER ; Start 11/05/16 at 16:45; Stop 11/12/16 at 10:22; Status DC Potassium Phosphate 2000 mg 2,000 mg UNSCH PRN PO/TUBE SEE LABEL COMMENTS; Start 11/07/16 at 08:45 Potassium Phosphate 500 mg 500 mg DAILY PO Last administered on 11/27/16 08:43 ; Start 11/10/16 at 09:00 Potassium Phosphate/Sodium Chloride (Potassium Phosphate Inj/NS 250 ml Inj) 260 ml @ 42 mls/hr UNSCH PRN IV SEE LABEL COMMENTS Last administered on 11/10/16 06:09; Start 11/07/16 at 08:45 Potassium Chloride 100 ml @ 50 mls/hr Q2H PRN IV For Potassium 3.3 - 3.5 mEq/ L Last administered on 11/17/16 07:53; Start 11/07/16 at 08:45 Propofol (Diprivan 1000 Mg/100ml Inj) 100 ml @ 0 mls/hr TITRATE IV Last administered on 11/17/16 10:23; Start 11/07/16 at 03:45; Stop 11/17/16 at 15:47 ; Status DC Sodium Chloride (NS 1000 ml Inj) 100 ml @ 1,000 mls/hr Q6M ONCE IV ; Start 11/06 at 13:00; Stop 11/06/16 at 13:05; Status DC Sodium Chloride (NS Flush) 2 ml BID IV FLUSH Last administered on 11/27/16 08: 43; Start 11/06/16 at 21:00 Sodium Chloride (Sodium Chloride) 2 gm BID PO Last administered on 11/27/16 08 :43; Start 11/13/16 at 14:00 Sodium Phosphate/ Sodium Chloride (Sodium Phosphate Inj/NS 250 ml Inj) 250 ml @ 42 mls/hr UNSCH PRN IV For Phosphorus < 2.5 mg/dL; Start 11/07/16 at 08:45 Vancomycin HCl 1000 mg/Sodium Chloride 250 ml @ 250 mls/hr Q24H IV ; Start 11/05 at 17:00; Stop 11/05/16 at 17:00; Status DC Vancomycin HCl 1250 mg/Sodium Chloride 262.5 ml @ 250 mls/hr Q24H IV Last administered on 11/09/16 09:13; Start 11/07/16 at 09:00; Stop 11/09/16 at 10:39 ; Status DC Vancomycin HCl 1500 mg/Sodium Chloride 515 ml @ 257.5 mls/ hr Q18H IV ; Start 11/11/16 at 18:00; Stop 11/11/16 at 18:22; Status DC Vancomycin HCl/ Sodium Chloride (Vancomycin Inj/ NS 250 ml Inj) 262.5 ml @ 250 mls/hr Q18H IV Last administered on 11/11/16 15:23; Start 11/10/16 at 03:00; Stop 11/11/16 at 16:08; Status DC Vancomycin HCl/ Sodium Chloride (Vancomycin Inj/ NS 500 ml Inj) 515 ml @ 257.5 mls/ hr Q18H IV Last administered on 11/12/16t 05:49; Start 11/12/16 at 06:00; Stop 11/12/16 at 10:22; Status DC Assessment and Plan Problem List: (1) Nausea & vomiting Status: Resolved (2) Weakness Status: Chronic (3) Leukocytosis Status: Resolved Plan: surgical site debrided wbc improved hr and temp controlled blood cultures show gram pos cocci further id pending (4) Hypokalemia Status: Resolved Plan: on potassium replacement protocall (5) Dural tear Status: Resolved Plan: treated surgically with blood and dural patch drain removed Assessment and Plan pt progressing slowly csf drain removed vss responsive working with PT will need [facility] [place] prealbumin 12 testosterone levels still pending no testosterone gel in hospital pharmacy will prescribe androgel 1.62% daily (or equilavent) family will hop pick[facility] med and turn in to nursing testosterone therapy discussed with Araseli Marin MD 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
--- NOTE | 2016-11-27 19:58 | HHI.NSPN ---
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 Patient presents to the emergency room on 11/05/16 with decreasing mental status, GI symptoms, and subsequent opening of the wound with wound dehiscence and purulent drainage. 11/07/16: Patient to surgery on an urgent basis for evacuation of epidural abscess , wound debridement. Patient found to have pre-existing dural tear with CSF leakage which could not be primarily repaired. Indirect repair of dural tear with blood clot, Gelfoam, thrombin, tissue glue and reclosure of wound site. 11/08/16: Patient remains intubated, sedated, head of bed flat. Dressing dry and intact 11/09/16: Patient remains intubated. Slight amount of drainage noted from incision. Lumbar subarachnoid drain placed per interventional radiology 11/10/16: Lumbar subarachnoid drain is not functioning well. Discussed with nursing staff 11/11/16: Intermittent drainage from subarachnoid drain. Wound and dressing dry and the morning. 11/12/16: Subarachnoid drain with minimal output. Mild drainage from wound. To OR for: 1. Exploration and debridement previous L4 5 wound site. 2. Revision indirect closure right L4 5 lateral dural tear 3. Placement of lumbar subarachnoid drain, removal previous subarachnoid drain 11/13: pt intubated, POD 1 s/p replacement of lumbar drain with closure of CSF with leak with Dr. Melissa 11/14: intubated, more awake today, moving legs more. 17: POD # 3, patient remains intubated, opens eyes spontaneously, following commands, lumbar drain still in place, daughter reports that patient did attempt to reach for ETT yesterday with both upper extremities 11/17/16: Extubated. Sitting up in bed. Lumbar drain remains in place 11/18: Patient states she is doing good. She denies any pain. Lumbar drain still in place. 11/19: Patient states she still doing well. She denied any pain or headache. Her daughter did state that she had a terrible headache yesterday but has not complained of any today. She also stated that her mother is confused and not acting her self and at times is childish, having stuck her tongue out at the daughter. The lumbar drain remains in place. 11/20/16: CT scan was small right parieto-occipital subdural effusion without significant mass effect. Dressing dry. Drain closed the reservoir 11/21/16: Small amount of drainage from the incision. Drain reopened. 11/22/16: Drainage has stopped functioning in the afternoon. Dressing remains dry. 11/23: Patient states that she is doing good but does endorse back pain. Less confused today. 11/24: Patient drowsy today but doing okay she says. She had a rough night and did not sleep well. Nursing reports a few drops of drainage along incision this morning but when she was up to the chair she had a good bit of drainage from the lumbar surgical incision which was pinkish in colour. 11/25: Patient awake & alert, denies any complaints. 11/26: Patient looks good this afternoon. Family says she is more alert than she has been. 11/27: Patient doing well. Drain in place/ Labs, Micro, & Vital Signs Results Date Time Temp Pulse Resp B/P Pulse Ox O2 Delivery O2 Flow Rate FiO2 11/27/16 16:00 97.0 80 17 125/58 95 11/27/16 12:00 98.1 76 23 131/63 92 11/27/16 12:00 71 11/27/16 10:00 68 11/27/16 08:30 95 Nasal Cannula 2.00 11/27/16 08:00 71 11/27/16 08:00 98.1 79 22 135/61 95 11/27/16 06:00 76 11/27/16 04:00 98.6 77 15 155/65 97 11/27/16 04:00 77 11/27/16 02:00 81 11/27/16 00:00 98.8 86 19 139/63 96 11/27/16 00:00 86 11/26/16 22:00 85 11/26/16 20:00 98.4 84 16 119/59 97 11/26/16 20:00 84 11/27/16 07:00 Intake Total 1550 ml Output Total 1785 ml Balance -235 ml Constitutional Vital Signs Date Time Temp Pulse Resp B/P Pulse Ox O2 Delivery O2 Flow Rate FiO2 11/27/16 16:00 97.0 80 17 125/58 95 11/27/16 12:00 98.1 76 23 131/63 92 11/27/16 12:00 71 11/27/16 10:00 68 11/27/16 08:30 95 Nasal Cannula 2.00 11/27/16 08:00 71 11/27/16 08:00 98.1 79 22 135/61 95 11/27/16 06:00 76 11/27/16 04:00 98.6 77 15 155/65 97 11/27/16 04:00 77 11/27/16 02:00 81 11/27/16 00:00 98.8 86 19 139/63 96 11/27/16 00:00 86 11/26/16 22:00 85 11/26/16 20:00 98.4 84 16 119/59 97 11/26/16 20:00 84 11/27/16 07:00 Intake Total 1550 ml Output Total 1785 ml Balance -235 ml Review of Systems/Exam Exam Resp: CTAB w/o W/R/R, equal excursion, non-laboured, on NC. CV: S1S2 w/RRR, w/o M/G/R. Monitor is sinus rhythm w/o any ectopy noted. GI: Abdomen soft, nontender, positive bowel sounds. Extremities: Warm, dry & pink, no deformity or clubbing. Neuro: AA&O x3. Speech clear & appropriate. Follows commands. Sensation to light touch grossly intact to all extremities. Moderate strength to major flexion & extension groups to all extremities. Back: Dry & intact surgical dressing w/o any shadowing noted, drain to gravity drainage w/sanguinous drainage, mildly TTP. Medications Current Medications Current Medications Acetaminophen 650 mg 650 mg ONCE ONCE PO Last administered on 11/05/16 02:55; Start 11/05/16 at 02:00; Stop 11/05/16 at 02:01; Status DC Sodium Chloride (NS 1000 ml Inj) 1,000 ml @ 2,000 mls/hr Q30M ONCE IV Last administered on 11/05/16 02:54; Start 11/05/16 at 02:00; Stop 11/05/16 at 02:29; Status DC Morphine Sulfate (Morphine Inj) 4 mg ONCE ONCE IV PUSH Last administered on 02:55; Start 11/05/16 at 02:00; Stop 11/05/16 at 02:01; Status DC Ondansetron HCl 4 mg 4 mg ONCE ONCE IV Last administered on 11/05/16 02:54; Start 11/05/16 at 02:00; Stop 11/05/16 at 02:01; Status DC Sodium Chloride 1,000 ml @ 2,000 mls/hr Q30M ONCE IV Last administered on 03:35; Start 11/05/16 at 03:15; Stop 11/05/16 at 03:44; Status DC Cefepime HCl 2000 mg/Sodium Chloride 100 ml @ 200 mls/hr ONCE ONCE IV Last administered on 11/05/16 03:36; Start 11/05/16 at 03:15; Stop 11/05/16 at 03:44; Status DC Vancomycin HCl/ Sodium Chloride (Vancomycin Inj/ NS 250 ml Inj) 250 ml @ 250 mls/hr ONCE ONCE IV Last administered on 11/05/16 03:35; Start 11/05/16 at 03: 15; Stop 11/05/16 at 04:14; Status DC Iohexol (Omnipaque 350 Inj) 80 ml STK-MED ONCE IV Last administered on 04:31; Start 11/05/16 at 04:31; Stop 11/05/16 at 04:32; Status DC Morphine Sulfate (Morphine Inj) 4 mg ONCE ONCE IV PUSH Last administered on 05:11; Start 11/05/16 at 05:00; Stop 11/05/16 at 05:01; Status DC Ondansetron HCl 4 mg 4 mg Q6H PRN IV NAUSEA Last administered on 11/05/16 06:46 ; Start 11/05/16 at 06:45; Stop 11/05/16 at 13:26; Status DC Sodium Chloride (NS 1000 ml Inj) 1,000 ml @ 42 mls/hr [id number] IV Last administered on 11/09/16 02:10; Start 11/05/16 at 07:00; Stop 11/09/16 at 10:49 ; Status DC Diatrizoate Meglum/ Diatrizoate Sod (Md Licea Liq) 18 ml ONCE ONCE PO Last administered on 11/05/16 12:33; Start 11/05/16 at 11:49; Stop 11/05/16 at 11: 57; Status DC Ondansetron HCl (Zofran Inj) 4 mg Q4HR PRN IV NAUSEA; Start 11/05/16 at 16:00; Stop 11/06/16 at 12:42; Status DC Pantoprazole Sodium 40 mg 40 mg Q24H IV PUSH Last administered on 11/05/16 17: 05; Start 11/05/16 at 16:00; Stop 11/06/16 at 15:16; Status DC Vancomycin HCl 1000 mg/Sodium Chloride 250 ml @ 250 mls/hr Q24H IV ; Start 11/05 at 17:00; Stop 11/05/16 at 17:00; Status DC Aztreonam 1000 mg/ Sodium Chloride 100 ml @ 200 mls/hr Q12H IV Last administered on 11/06/16 05:24; Start 11/05/16 at 18:00; Stop 11/06/16 at 12:26; Status DC Pharmacy Profile Note 0 ml @ 0 mls/hr UNSCH OTHER ; Start 11/05/16 at 16:30; Stop 11/05/16 at 16:32; Status DC Pharmacy Profile Note ml @ 0 mls/hr UNSCH OTHER ; Start 11/05/16 at 16:45; Stop 11/12/16 at 10:22; Status DC Vancomycin HCl/ Sodium Chloride (Vancomycin Inj/ NS 250 ml Inj) 262.5 ml @ 250 mls/hr Q18H IV ; Start 11/05/16 at 18:00; Stop 11/05/16 at 18:50; Status DC Miscellaneous Information SPECIFIC LAB TO BE DRAWN:VANCOMYCIN TROUGH DATE TO... ONCE ONCE .XX ; Start 11/07/16 at 05:45; Stop 11/07/16 at 05:46; Status Cancel Morphine Sulfate (Morphine Inj) 1 mg Q6H PRN IV PAIN SCALE 1-5 Last administered on 11/06/16 00:32; Start 11/05/16 at 18:00; Stop 11/06/16 at 12:36; Status DC Morphine Sulfate (Morphine Inj) 2 mg Q6H PRN IV PAIN SCALE 6-10 Last administered on 11/05/16 18:31; Start 11/05/16 at 18:00; Stop 11/06/16 at 12:36; Status DC Acetaminophen 650 mg 650 mg Q4H PRN RECTAL FEVER > 101 Last administered on 11/05 18:30; Start 11/05/16 at 18:30 Vancomycin HCl/ Sodium Chloride (Vancomycin Inj/ NS 250 ml Inj) 262.5 ml @ 250 mls/hr Q18H IV Last administered on 11/05/16 20:09; Start 11/05/16 at 21:00; Stop 11/06/16 at 09:00; Status DC Miscellaneous Information SPECIFIC LAB TO BE DRAWN:VANCOMYCIN TROUGH DATE TO... ONCE ONCE .XX ; Start 11/07/16 at 08:45; Stop 11/07/16 at 08:46; Status DC Ceftazidime 2000 mg/Sodium Chloride 100 ml @ 200 mls/hr Q8H IV Last administered on 11/09/16 14:00; Start 11/06/16 at 14:00; Stop 11/09/16 at 21:17 ; Status DC Metronidazole (Flagyl 500 Mg Inj) 100 ml @ 100 mls/hr Q8H IV Last administered on 11/09/16 20:19; Start 11/06/16 at 13:00; Stop 11/09/16 at 21:17 ; Status DC Sodium Chloride (NS Flush) 2 ml UNSCH PRN IV FLUSH FLUSH AFTER USING IV ACCESS Last administered on 11/11/16 08:31; Start 11/06/16 at 12:30 Sodium Chloride (NS Flush) 2 ml BID IV FLUSH Last administered on 11/27/16 08: 43; Start 11/06/16 at 21:00 Acetaminophen (Tylenol) 650 mg Q6H PRN PO PAIN 1-6 AND/OR FEVER >101F Last administered on 11/23/16 11:18; Start 11/06/16 at 12:30 Famotidine (Pepcid Inj) 10 mg Q12H IV PUSH Last administered on 11/07/16 04:22 ; Start 11/06/16 at 16:00; Stop 11/07/16 at 15:36; Status DC Ondansetron HCl (Zofran Inj) 4 mg Q6H PRN IV NAUSEA OR VOMITING Last administered on 11/25/16 18:20; Start 11/06/16 at 12:30 Bisacodyl (Dulcolax Supp) 10 mg DAILY PRN RECTAL CONSTIPATION; Start 11/06/16 at 12:30 Albuterol/ Ipratropium (Duoneb Neb) 1 ampule Q6HR NEB INH Last administered on 11/14/16 08:16; Start 11/06/16 at 16:00; Stop 11/14/16 at 12:44; Status DC Miscellaneous Information 1 Q361D XX ; Start 11/06/16 at 12:30 Chlorhexidine Gluconate (Chlorhexidine 2% Cloth) 3 pack Taper DAILY@04 TOP Last administered on 11/27/16 04:00; Start 11/07/16 at 04:00; Stop 11/03/17 at 03 :59 Chlorhexidine Gluconate 3 pack 3 pack UNSCH PRN TOP HYGIENIC CARE; Start at 12:30 Sodium Chloride 1,000 ml @ 1,000 mls/hr Q1H ONCE IV ; Start 11/06/16 at 13:00; Stop 11/06/16 at 13:59; Status DC Sodium Chloride 1,000 ml @ 1,000 mls/hr Q1H ONCE IV ; Start 11/06/16 at 13:00; Stop 11/06/16 at 13:59; Status DC Sodium Chloride (NS 1000 ml Inj) 100 ml @ 1,000 mls/hr Q6M ONCE IV ; Start 11/06 at 13:00; Stop 11/06/16 at 13:05; Status DC Dextrose (D50w (Vial) Inj) 25 ml UNSCH PRN IV PUSH HYPOGLYCEMIA-SEE COMMENTS; Start 11/06/16 at 14:15; Stop 11/11/16 at 18:24; Status DC Glucagon (Glucagon Inj) 1 mg UNSCH PRN OTHER HYPOGLYCEMIA-SEE COMMENTS; Start 11/06/16 at 14:15; Stop 11/11/16 at 18:24; Status DC Insulin Human Regular (NovoLIN R SUPPLEMENTAL SCALE) 1 ACHS SLIDING SCALE SQ ; Start 11/06/16 at 16:00; Stop 11/07/16 at 04:14; Status DC Midazolam HCl (Versed Inj) 0.5 mg Q5M PRN IV RESTLESSNESS X 4 DOSES MAX; Start 11/06/16 at 15:00; Stop 11/06/16 at 15:21; Status DC Gadobenate Dimeglumine (Multihance Pf Inj) 10 ml STK-MED ONCE IV Last administered on 11/06/16 15:00; Start 11/06/16 at 15:00; Stop 11/06/16 at 15:01; Status DC Gelatin (Gelfoam 100 Top) 1 foam STK-MED ONCE .ROUTE ; Start 11/06/16 at 20:02; Stop 11/06/16 at 20:03; Status DC Lidocaine/ Epinephrine (Xylocaine-Epi 1%-1:100,000 Inj) 50 ml STK-MED ONCE .ROUTE ; Start 11/06/16 at 20:02; Stop 11/06/16 at 20:03; Status DC Gentamicin Sulfate (Gentamicin Inj) 240 mg STK-MED ONCE .ROUTE ; Start 11/06/16 at 20:03; Stop 11/06/16 at 20:04; Status DC Thrombin (Thrombin Top Soln) 10,000 units STK-MED ONCE .ROUTE ; Start 11/06/16 at 20:03; Stop 11/06/16 at 20:04; Status DC Lidocaine/ Epinephrine (Xylocaine-Epi 1%-1:100,000 Inj) 50 ml STK-MED ONCE INFIL Last administered on 11/07/16 01:00; Start 11/07/16 at 01:00; Stop at 01:40; Status DC Gentamicin Sulfate (Gentamicin Inj) 240 mg STK-MED ONCE IRRIGATION Last administered on 11/07/16 01:00; Start 11/07/16 at 01:00; Stop 11/07/16 at 01:40; Status DC Gelatin (Gelfoam 100 Top) 1 foam STK-MED ONCE OTHER Last administered on 01:00; Start 11/07/16 at 01:00; Stop 11/07/16 at 01:40; Status DC Thrombin (Thrombin Top Soln) 20,000 units STK-MED ONCE OTHER Last administered on 11/07/16 01:00; Start 11/07/16 at 01:00; Stop 11/07/16 at 01:40; Status DC Vancomycin HCl (Vancomycin Inj) 500 mg STK-MED ONCE .ROUTE ; Start 11/07/16 at 02 :14; Stop 11/07/16 at 02:15; Status DC Vancomycin HCl (Vancomycin Inj) 500 mg STK-MED ONCE IRRIGATION Last administered on 11/07/16 02:20; Start 11/07/16 at 02:20; Stop 11/07/16 at 02:25; Status DC Fentanyl Citrate 250 mcg 250 mcg STK-MED ONCE .ROUTE ; Start 11/07/16 at 03:41; Stop 11/07/16 at 03:42; Status DC Propofol (Diprivan 1000 Mg/100ml Inj) 100 ml @ 0 mls/hr TITRATE IV Last administered on 11/17/16 10:23; Start 11/07/16 at 03:45; Stop 11/17/16 at 15:47 ; Status DC Chlorhexidine Gluconate (Peridex 0.12% Liq) 15 ml BID@08,20 MT Last administered on 11/27/16 07:35; Start 11/07/16 at 08:00 Dextrose (D50w (Vial) Inj) 25 ml UNSCH PRN IV PUSH HYPOGLYCEMIA-SEE COMMENTS; Start 11/07/16 at 04:15; Stop 11/27/16 at 11:41; Status DC Glucagon (Glucagon Inj) 1 mg UNSCH PRN OTHER HYPOGLYCEMIA-SEE COMMENTS; Start 11/07/16 at 04:15; Stop 11/27/16 at 11:41; Status DC Insulin Aspart 1 1 Q6H SQ Last administered on 11/20/16 12:29; Start 11/07/16 at 06:00; Stop 11/27/16 at 11:41; Status DC Vancomycin HCl/ Sodium Chloride (Vancomycin Inj/ NS 250 ml Inj) 262.5 ml @ 250 mls/hr Q24H IV Last administered on 11/09/16 09:13; Start 11/07/16 at 09:00; Stop 11/09/16 at 10:39; Status DC Miscellaneous Information SPECIFIC LAB TO BE NIR... ONCE ONCE .XX Last administered on 11/09/16 08:45; Start 11/09/16 at 08:45; Stop 11/09/16 at 08:46 ; Status DC Potassium Chloride 100 ml @ 50 mls/hr Q2H PRN IV-CENTRAL For Potassium 2.8 - 3.2 mEq/L Last administered on 11/07/16 23:30; Start 11/07/16 at 08:45 Potassium Chloride 100 ml @ 50 mls/hr Q2H PRN IV For Potassium 2.8 - 3.2 mEq/L ; Start 11/07/16 at 08:45 Potassium Chloride 100 ml @ 25 mls/hr UNSCH PRN IV-CENTRAL For Potassium 3.3 - 3.5 mEq/L; Start 11/07/16 at 08:45 Potassium Chloride 100 ml @ 50 mls/hr Q2H PRN IV For Potassium 3.3 - 3.5 mEq/ L Last administered on 11/17/16 07:53; Start 11/07/16 at 08:45 Magnesium Sulfate/ Sodium Chloride (Magnesium Sulfate Inj/NS Inj) 100 ml @ 50 mls/hr UNSCH PRN IV For Magnesium 0.9 - 1.1 mg/dL; Start 11/07/16 at 08:45 Magnesium Oxide 800 mg 800 mg UNSCH PRN PO For Magnesium 1.2 - 1.6 mg/dL Last administered on 11/11/16 08:31; Start 11/07/16 at 08:45 Magnesium Sulfate/ Sodium Chloride (Magnesium Sulfate Inj/NS Inj) 100 ml @ 50 mls/hr UNSCH PRN IV For Magnesium 1.2 - 1.6 mg/dL Last administered on 06:47; Start 11/07/16 at 08:45 Potassium Phosphate 2000 mg 2,000 mg Q4H PRN PO For Phosphorus < 2.5 mg/dL Last administered on 11/12/16 08:42; Start 11/07/16 at 08:45 Sodium Phosphate/ Sodium Chloride (Sodium Phosphate Inj/NS 250 ml Inj) 250 ml @ 42 mls/hr UNSCH PRN IV For Phosphorus < 2.5 mg/dL; Start 11/07/16 at 08:45 Potassium Phosphate 2000 mg 2,000 mg UNSCH PRN PO/TUBE SEE LABEL COMMENTS; Start 11/07/16 at 08:45 Potassium Phosphate/Sodium Chloride (Potassium Phosphate Inj/NS 250 ml Inj) 260 ml @ 42 mls/hr UNSCH PRN IV SEE LABEL COMMENTS Last administered on 11/10/16 06:09; Start 11/07/16 at 08:45 Furosemide (Lasix Inj) 20 mg NOW ONCE IV PUSH Last administered on 11/07/16 16 :27; Start 11/07/16 at 15:45; Stop 11/07/16 at 15:46; Status DC Famotidine 20 mg 20 mg Q12H IV PUSH Last administered on 11/27/16 18:04; Start 11/07/16 at 16:00 Fentanyl Citrate 250 ml @ 0 mls/hr TITRATE IV Last administered on 11/07/16 21: 10; Start 11/07/16 at 21:00; Stop 11/08/16 at 10:20; Status DC Multivitamins 10 ml/Folic Acid 1 mg/Amino Acids/ Electrolytes/ Dextrose 1,010.2 ml @ 42 mls/hr Q24H IV Last administered on 11/08/16 10:30; Start 11/08/16 at 11:00; Stop 11/08/16 at 19:59; Status DC Fat Emulsion Intravenous (Liposyn Iii 20% Inj) 250 ml @ 10 mls/hr Q24H IV Last administered on 11/08/16 10:46; Start 11/08/16 at 11:00; Stop 11/08/16 at 19:59; Status DC Metoprolol Tartrate 2.5 mg 2.5 mg Q6H PRN IV PUSH SYS BP GREATER THAN 160 MMHG Last administered on 11/12/16 05:08; Start 11/08/16 at 14:45 Multivitamins 10 ml/Folic Acid 1 mg/Amino Acids/ Electrolytes/ Dextrose 1,010.2 ml @ 42 mls/hr Q24H IV Last administered on 11/16/16 19:42; Start 11/08/16 at 20:00; Stop 11/17/16 at 16:55; Status DC Fat Emulsion Intravenous (Liposyn Iii 20% Inj) 250 ml @ 10 mls/hr Q24H IV Last administered on 11/16/16 19:42; Start 11/08/16 at 20:00; Stop 11/17/16 at 16:56; Status DC Hydromorphone HCl 1 mg 1 mg Q2HR PRN IV PUSH PAIN SCALE 7 TO 10 Last administered on 11/19/16 22:40; Start 11/08/16 at 15:45; Stop 11/20/16 at 18:08 ; Status DC Sodium Chloride 1,000 ml @ 0 mls/hr Q0M IV Last administered on 11/18/16 20: 46; Start 11/09/16 at 09:53 Vancomycin HCl/ Sodium Chloride (Vancomycin Inj/ NS 250 ml Inj) 262.5 ml @ 250 mls/hr Q18H IV Last administered on 11/11/16 15:23; Start 11/10/16 at 03:00; Stop 11/11/16 at 16:08; Status DC Miscellaneous Information SPECIFIC LAB TO BE DRAWN:VANCOMYCIN TROUGH DATE TO... ONCE ONCE .XX Last administered on 11/11/16 14:00; Start 11/11/16 at 14:45; Stop 11/11/16 at 14:46; Status DC Potassium Phosphate (K-Phos) 500 mg DAILY PO ; Start 11/09/16 at 11:00; Status Cancel Potassium Phosphate 500 mg 500 mg DAILY PO Last administered on 11/27/16 08:43 ; Start 11/10/16 at 09:00 Cefazolin Sodium/ Sodium Chloride (Ancef Inj/NS Inj) 100 ml @ 200 mls/hr Q8HR IV Last administered on 11/13/16 15:12; Start 11/09/16 at 22:00; Stop at 23:09; Status DC Furosemide 20 mg 20 mg ONCE ONCE IV PUSH Last administered on 11/11/16 14:00 ; Start 11/11/16 at 13:45; Stop 11/11/16 at 13:47; Status DC Vancomycin HCl/ Sodium Chloride (Vancomycin Inj/ NS 500 ml Inj) 515 ml @ 257.5 mls/ hr Q18H IV ; Start 11/11/16 at 18:00; Stop 11/11/16 at 18:22; Status DC Miscellaneous Information SPECIFIC LAB TO BE DRAWN:VANCOMYIN TROUGH DATE TO... ONCE ONCE .XX ; Start 11/14/16 at 11:45; Stop 11/14/16 at 11:46; Status Cancel Vancomycin HCl/ Sodium Chloride (Vancomycin Inj/ NS 500 ml Inj) 515 ml @ 257.5 mls/ hr Q18H IV Last administered on 11/12/16 05:49; Start 11/12/16 at 06:00; Stop 11/12/16 at 10:22; Status DC Gadodiamide (Omniscan Pf Inj) 15 ml STK-MED ONCE IV Last administered on 12:50; Start 11/12/16 at 12:50; Stop 11/12/16 at 12:51; Status DC Vancomycin HCl (Vancomycin Inj) 1,000 mg STK-MED ONCE .ROUTE ; Start 11/12/16 at 19:05; Stop 11/12/16 at 19:06; Status DC Thrombin (Thrombin Top Soln) 5,000 units STK-MED ONCE .ROUTE Last administered on 11/12/16 21:00; Start 11/12/16 at 19:05; Stop 11/12/16 at 19:06; Status DC Gelatin (Gelfoam 100 Top) 1 foam STK-MED ONCE .ROUTE Last administered on 21:00; Start 11/12/16 at 19:06; Stop 11/12/16 at 19:07; Status DC Lidocaine/ Epinephrine (Xylocaine-Epi 1%-1:100,000 Inj) 50 ml STK-MED ONCE .ROUTE ; Start 11/12/16 at 19:06; Stop 11/12/16 at 19:07; Status DC Gentamicin Sulfate (Gentamicin Inj) 240 mg STK-MED ONCE .ROUTE Last administered on 11/12/16 21:00; Start 11/12/16 at 19:06; Stop 11/12/16 at 19:07 ; Status DC Thrombin (Thrombin Top Soln) 5,000 units STK-MED ONCE TOPICAL Last administered on 11/12/16 21:00; Start 11/12/16 at 21:00; Stop 11/12/16 at 21:37 ; Status DC Vancomycin HCl (Vancomycin Inj) 500 mg STK-MED ONCE .ROUTE ; Start 11/12/16 at 22:16; Stop 11/12/16 at 22:17; Status DC Labetalol HCl (Trandate Inj) 10 mg Q1H PRN IV SYS BP GREATER THAN 170 MMHG Last administered on 11/13/16 09:09; Start 11/13/16 at 01:30 Sodium Chloride (Sodium Chloride) 2 gm BID PO Last administered on 11/27/16 08 :43; Start 11/13/16 at 14:00 Furosemide 20 mg 20 mg ONCE ONCE IV PUSH Last administered on 11/13/16 15:12 ; Start 11/13/16 at 14:15; Stop 11/13/16 at 14:16; Status DC Cefazolin Sodium/ Dextrose (Ancef 2 Gm Premix) 50 ml @ 100 mls/hr Q8H IV Last administered on 11/27/16 15:37; Start 11/13/16 at 22:00 Phenylephrine HCl 1000 mcg 1,000 mcg STK-MED ONCE IV ; Start 11/07/16 at 12:00; Stop 11/16/16 at 10:08; Status DC Sodium Chloride 250 ml @ As Directed STK-MED ONCE IV ; Start 11/07/16 at 12:00; Stop 11/16/16 at 10:08; Status DC Sodium Chloride (NS 1000 ml Inj) 1,000 ml @ As Directed STK-MED ONCE IV ; Start 11/07/16 at 12:00; Stop 11/16/16 at 10:08; Status DC Albuterol/ Ipratropium (Duoneb Neb) 1 ampule Q6HR NEB NEB Last administered on 11/21/16 10:05; Start 11/17/16 at 16:00; Stop 11/21/16 at 16:00; Status DC Albuterol/ Ipratropium (Duoneb Neb) 1 ampule Q2HR NEB PRN NEB SHORTNESS OF BREATH Last administered on 11/21/16 16:05; Start 11/17/16 at 15:45 Metoprolol Tartrate (Lopressor) 25 mg Q12HR PO Last administered on 11/19/16 08:38; Start 11/18/16 at 09:00; Stop 11/19/16 at 09:58; Status DC Metoprolol Tartrate (Lopressor) 12.5 mg Q12HR PO Last administered on 08:20; Start 11/19/16 at 21:00; Stop 11/24/16 at 11:40; Status DC Miscellaneous (Pill Splitter) 1 ea UNSCH PRN OTHER SEE LABEL COMMENTS; Start at 10:15 Hydromorphone HCl (Dilaudid Pf Inj) 0.5 mg Q2HR PRN IV PUSH PAIN SCALE 7 TO 10 Last administered on 11/26/16 19:04; Start 11/20/16 at 18:15 Amlodipine Besylate (Norvasc) 10 mg DAILY PO Last administered on 11/27/16 08: 43; Start 11/23/16 at 09:00 Metoprolol Tartrate (Lopressor) 25 mg Q12HR PO Last administered on 11/27/16 08:43; Start 11/24/16 at 21:00 Thrombin (Thrombin Top Soln) 10,000 units STK-MED ONCE .ROUTE Last administered on 11/26/16 08:08; Start 11/26/16 at 06:59; Stop 11/26/16 at 07:00 ; Status DC Gelatin (Gelfoam 100 Top) 1 foam STK-MED ONCE .ROUTE Last administered on 08:08; Start 11/26/16 at 06:59; Stop 11/26/16 at 07:00; Status DC Gentamicin Sulfate (Gentamicin Inj) 240 mg STK-MED ONCE .ROUTE Last administered on 11/26/16 08:08; Start 11/26/16 at 06:59; Stop 11/26/16 at 07:00 ; Status DC Lidocaine/ Epinephrine (Xylocaine-Epi 1%-1:100,000 Inj) 40 ml STK-MED ONCE .ROUTE ; Start 11/26/16 at 07:00; Stop 11/26/16 at 07:01; Status DC Acetaminophen (Ofirmev Inj) 1,000 mg STK-MED ONCE IV ; Start 11/26/16 at 07:32; Stop 11/26/16 at 07:33; Status DC Fentanyl Citrate (fentaNYL INJ) 250 mcg STK-MED ONCE .ROUTE ; Start 11/26/16 at 07:32; Stop 11/26/16 at 07:33; Status DC Miscellaneous Information ALL NURSING DEPARTME... UNSCH PRN .XX SEE LABEL COMMENTS; Start 11/26/16 at 09:38; Stop 11/27/16 at 09:37; Status DC Patient Own Medication PT OWN MED: TESTOSTERONE TOPI... DAILY TOPICAL ; Start at 09:00; Status Hold Medical Decision Making MDM Remarks Status post repeat debridement lumbar wound dehiscence, replacement lumbar subarachnoid drain, indirect closure of CSF leak and dural tear on 11/12/16. S/P lumbar wound revision 11/26/16. Doing well. Plan Plan Remarks Continue neuro checks Keep patient off of back Mobilise to chair w/assistance Continue drain. Luis Lora MD Nov 27, 2016 19:58
[2016-11-28] VITALS (7 sets, daily range): BP systolic 130–148; BP diastolic 60–68; PULSE 75–82; RESP 16–18; TEMP 96.3–98; O2SAT 94–99
[2016-11-28] MEDS: CHLORHEXIDINE GLUCONATE 2 % 1 PACK (2 CLOTHS) TOP SCH (04:00)
[2016-11-28] MEDS: FAMOTIDINE 20 MG/2 ML VIAL IV PUSH SCH ×2 (04:22→17:10)
[2016-11-28] MEDS: ceFAZolin 2 GM PREMIX 50 ML IV SCH ×3 (05:16→22:21)
[2016-11-28] MEDS: CHLORHEXIDINE 0.12% (ORAL KIT) 15 ML CUP MT SCH ×2 (07:18→20:00)
[2016-11-28] MEDS: SODIUM CHLORIDE 0.9% FLUSH 10 ML FLUSH IV FLUSH SCH ×2 (08:40→22:21)
[2016-11-28] MEDS: SODIUM CHLORIDE 1 GRAM TAB PO SCH ×2 (08:40→22:23)
[2016-11-28] MEDS: POTASSIUM PHOSPHATE MONOBASIC 500 MG TAB PO SCH (08:40)
[2016-11-28] MEDS: METOPROLOL TARTRATE 25 MG TAB PO SCH ×2 (08:40→22:21)
--- NOTE | 2016-11-28 11:01 | HHI.PR ---
Subjective Remarks pt now in med surg resting quietly await testosterone results and family unable to obtain gel from op pharmacy until tuesday Objective Vital Signs Date Time Temp Pulse Resp B/P Pulse Ox O2 Delivery O2 Flow Rate FiO2 11/28/16 08:00 96.3 77 17 146/65 97 11/28/16 04:59 97.7 82 17 148/67 97 11/28/16 00:00 97.9 80 17 142/67 94 11/27/16 20:00 97.7 86 17 127/62 96 11/27/16 19:50 87 11/27/16 16:00 97.0 80 17 125/58 95 11/27/16 12:00 98.1 76 23 131/63 92 11/27/16 12:00 71 I/O 11/27/16 11/27/16 11/27/16 11/28/16 11/28/16 11/28/16 07:00 15:00 23:00 07:00 15:00 23:00 Intake Total 50 ml 250 ml 380 ml 280 ml Output Total 300 ml 890 ml 500 ml 450 ml Balance -250 ml -640 ml -120 ml -170 ml Intake Oral 250 ml 380 ml 180 ml IV Total 50 ml 100 ml Output Urine Total 300 ml 850 ml 500 ml 400 ml Drainage Total 40 ml 0 ml 50 ml # Bowel Movements 0 1 Result Diagram: 11/27/16 0320 11/27/16 0320 Procedures replacement of CSF drain and dural patch 11/12 evacuation of epidural abscess 11/07 had laminectomy Objective Remarks CONSTITUTIONAL/GENERAL: This is an elderly female resting quietly improving alertness TUBES/LINES/DRAINS: SKIN: No jaundice pale , rashes, or lesions. Skin temperature appropriate. Not diaphoretic. HEAD: Atraumatic. Normocephalic. EYES: follows me . Fundi not examined. ENT: Nose without bleeding or purulent drainage. Throat without visible erythema, exudates, masses, or lesions intubated on vent. NECK: Trachea midline. Supple, nontender. No palpable thyroid enlargement or nodularity. CARDIOVASCULAR: Regular rate and rhythm without murmurs, gallops, or rubs. No JVD. Peripheral pulses symmetric RESPIRATORY/CHEST: Symmetric, unlabored respirations. Clear to auscultation. Breath sounds equal bilaterally. No wheezes, rales, or rhonchi. GASTROINTESTINAL: Abdomen soft, some tenderness nausea resolved nondistended. No hepato-splenomegaly, or palpable masses. No guarding. Bowel sounds present. GENITOURINARY: Without palpable bladder distension. Jean-Baptiste catheter in place. MUSCULOSKELETAL: Extremities without clubbing, cyanosis, or edema. No joint tenderness or effusion noted. No calf tenderness. No mottling or clubbing.lumbar wound with drainage generalized weakness present LYMPHATICS: No palpable cervical or supraclavicular adenopathy.mild edema present NEUROLOGICAL: sedated Motor and sensory grossly within normal limits. Follows commands. Moves all extremities. cfs drain in place currently clamped PSYCHIATRIC: No obvious anxiety/depression. Medications and IVs Inpatient Medications Acetaminophen (Tylenol) 650 mg Q6H PRN PO PAIN 1-6 AND/OR FEVER >101F Last administered on 11/23/16 11:18; Start 11/06/16 at 12:30 Acetaminophen 650 mg 650 mg Q4H PRN RECTAL FEVER > 101 Last administered on 11/05 18:30; Start 11/05/16 at 18:30 Albuterol/ Ipratropium (Duoneb Neb) 1 ampule Q2HR NEB PRN NEB SHORTNESS OF BREATH Last administered on 11/21/16 16:05; Start 11/17/16 at 15:45 Amlodipine Besylate (Norvasc) 10 mg DAILY PO Last administered on 11/28/16 08: 40; Start 11/23/16 at 09:00 Aztreonam 1000 mg/ Sodium Chloride 100 ml @ 200 mls/hr Q12H IV Last administered on 11/06/16 05:24; Start 11/05/16 at 18:00; Stop 11/06/16 at 12:26; Status DC Bisacodyl (Dulcolax Supp) 10 mg DAILY PRN RECTAL CONSTIPATION; Start 11/06/16 at 12:30 Cefazolin Sodium 2000 mg/Sodium Chloride 100 ml @ 200 mls/hr Q8HR IV Last administered on 11/13/16 15:12; Start 11/09/16 at 22:00; Stop 11/13/16 at 23:09 ; Status DC Cefazolin Sodium/ Dextrose (Ancef 2 Gm Premix) 50 ml @ 100 mls/hr Q8H IV Last administered on 11/28/16 05:16; Start 11/13/16 at 22:00 Cefepime HCl/ Sodium Chloride (Maxipime Inj/NS Inj) 100 ml @ 200 mls/hr ONCE ONCE IV Last administered on 11/05/16 03:36; Start 11/05/16 at 03:15; Stop at 03:44; Status DC Ceftazidime 2000 mg/Sodium Chloride 100 ml @ 200 mls/hr Q8H IV Last administered on 11/09/16 14:00; Start 11/06/16 at 14:00; Stop 11/09/16 at 21:17 ; Status DC Chlorhexidine Gluconate (Chlorhexidine 2% Cloth) 3 pack Taper DAILY@04 TOP Last administered on 11/27/16 04:00; Start 11/07/16 at 04:00; Stop 11/03/17 at 03 :59 Chlorhexidine Gluconate (Peridex 0.12% Liq) 15 ml BID@08,20 MT Last administered on 11/27/16 20:00; Start 11/07/16 at 08:00 Chlorhexidine Gluconate 3 pack 3 pack UNSCH PRN TOP HYGIENIC CARE; Start at 12:30 Dextrose (D50w (Vial) Inj) 25 ml UNSCH PRN IV PUSH HYPOGLYCEMIA-SEE COMMENTS; Start 11/07/16 at 04:15; Stop 11/27/16 at 11:41; Status DC Diatrizoate Meglum/ Diatrizoate Sod ( Gastroview Liq) 18 ml ONCE ONCE PO Last administered on 11/05/16 12:33; Start 11/05/16 at 11:49; Stop 11/05/16 at 11: 57; Status DC Famotidine (Pepcid Inj) 10 mg Q12H IV PUSH Last administered on 11/07/16 04:22 ; Start 11/06/16 at 16:00; Stop 11/07/16 at 15:36; Status DC Famotidine 20 mg 20 mg Q12H IV PUSH Last administered on 11/28/16 04:22; Start 11/07/16 at 16:00 Fat Emulsion Intravenous (Liposyn Iii 20% Inj) 250 ml @ 10 mls/hr Q24H IV Last administered on 11/16/16 19:42; Start 11/08/16 at 20:00; Stop 11/17/16 at 16:56; Status DC Fentanyl Citrate 250 ml @ 0 mls/hr TITRATE IV Last administered on 11/07/16 21: 10; Start 11/07/16 at 21:00; Stop 11/08/16 at 10:20; Status DC Furosemide (Lasix Inj) 20 mg NOW ONCE IV PUSH Last administered on 11/07/16 16 :27; Start 11/07/16 at 15:45; Stop 11/07/16 at 15:46; Status DC Furosemide 20 mg 20 mg ONCE ONCE IV PUSH Last administered on 11/13/16 15:12 ; Start 11/13/16 at 14:15; Stop 11/13/16 at 14:16; Status DC Glucagon (Glucagon Inj) 1 mg UNSCH PRN OTHER HYPOGLYCEMIA-SEE COMMENTS; Start 11/07/16 at 04:15; Stop 11/27/16 at 11:41; Status DC Hydromorphone HCl (Dilaudid Pf Inj) 0.5 mg Q2HR PRN IV PUSH PAIN SCALE 7 TO 10 Last administered on 11/26/16 19:04; Start 11/20/16 at 18:15 Hydromorphone HCl 1 mg 1 mg Q2HR PRN IV PUSH PAIN SCALE 7 TO 10 Last administered on 11/19/16 22:40; Start 11/08/16 at 15:45; Stop 11/20/16 at 18:08 ; Status DC Insulin Aspart 1 1 Q6H SQ Last administered on 11/20/16 12:29; Start 11/07/16 at 06:00; Stop 11/27/16 at 11:41; Status DC Insulin Human Regular (NovoLIN R SUPPLEMENTAL SCALE) 1 ACHS SLIDING SCALE SQ ; Start 11/06/16 at 16:00; Stop 11/07/16 at 04:14; Status DC Labetalol HCl (Trandate Inj) 10 mg Q1H PRN IV SYS BP GREATER THAN 170 MMHG Last administered on 11/13/16 09:09; Start 11/13/16 at 01:30 Magnesium Oxide 800 mg 800 mg UNSCH PRN PO For Magnesium 1.2 - 1.6 mg/dL Last administered on 11/11/16 08:31; Start 11/07/16 at 08:45; Stop 11/28/16 at 10:41 ; Status DC Magnesium Sulfate 2 gm/Sodium Chloride 100 ml @ 50 mls/hr UNSCH PRN IV For Magnesium 1.2 - 1.6 mg/dL Last administered on 11/18/16 06:47; Start 11/07/16 at 08:45; Stop 11/28/16 at 10:41; Status DC Magnesium Sulfate/ Sodium Chloride (Magnesium Sulfate Inj/NS Inj) 100 ml @ 50 mls/hr UNSCH PRN IV For Magnesium 0.9 - 1.1 mg/dL; Start 11/07/16 at 08:45; Stop 11/28/16 at 10:41; Status DC Metoprolol Tartrate (Lopressor) 25 mg Q12HR PO Last administered on 11/28/16 08:40; Start 11/24/16 at 21:00 Metoprolol Tartrate 2.5 mg 2.5 mg Q6H PRN IV PUSH SYS BP GREATER THAN 160 MMHG Last administered on 11/12/16 05:08; Start 11/08/16 at 14:45 Metronidazole (Flagyl 500 Mg Inj) 100 ml @ 100 mls/hr Q8H IV Last administered on 11/09/16 20:19; Start 11/06/16 at 13:00; Stop 11/09/16 at 21:17 ; Status DC Midazolam HCl 0.5 mg 0.5 mg Q5M PRN IV RESTLESSNESS X 4 DOSES MAX; Start at 15:00; Stop 11/06/16 at 15:21; Status DC Miscellaneous (Pill Splitter) 1 ea UNSCH PRN OTHER SEE LABEL COMMENTS; Start at 10:15 Miscellaneous Information ALL NURSING DEPARTME... UNSCH PRN .XX SEE LABEL COMMENTS; Start 11/26/16 at 09:38; Stop 11/27/16 at 09:37; Status DC Morphine Sulfate (Morphine Inj) 2 mg Q6H PRN IV PAIN SCALE 6-10 Last administered on 11/05/16 18:31; Start 11/05/16 at 18:00; Stop 11/06/16 at 12:36; Status DC Multivitamins 10 ml/Folic Acid 1 mg/Amino Acids/ Electrolytes/ Dextrose 1,010.2 ml @ 42 mls/hr Q24H IV Last administered on 11/16/16 19:42; Start 11/08/16 at 20:00; Stop 11/17/16 at 16:55; Status DC Multivitamins/ Folic Acid/Amino Acids/ Electrolytes/ Dextrose (Mvi-12 Inj/ Folvite Inj/ Clinimix E 4.25/5) 1,010.2 ml @ 42 mls/hr Q24H IV Last administered on 11/08/16 10:30; Start 11/08/16 at 11:00; Stop 11/08/16 at 19:59 ; Status DC Ondansetron HCl (Zofran Inj) 4 mg Q6H PRN IV NAUSEA OR VOMITING Last administered on 11/25/16 18:20; Start 11/06/16 at 12:30 Ondansetron HCl 4 mg 4 mg ONCE ONCE IV Last administered on 11/05/16 02:54; Start 11/05/16 at 02:00; Stop 11/05/16 at 02:01; Status DC Pantoprazole Sodium 40 mg 40 mg Q24H IV PUSH Last administered on 11/05/16 17: 05; Start 11/05/16 at 16:00; Stop 11/06/16 at 15:16; Status DC Patient Own Medication PT OWN MED: TESTOSTERONE TOPI... DAILY TOPICAL ; Start at 09:00; Status Hold Pharmacy Profile Note (Vancomycin Consult Pharmacy) ml @ 0 mls/hr UNSCH OTHER ; Start 11/05/16 at 16:45; Stop 11/12/16 at 10:22; Status DC Potassium Phosphate 2000 mg 2,000 mg UNSCH PRN PO/TUBE SEE LABEL COMMENTS; Start 11/07/16 at 08:45; Stop 11/28/16 at 10:41; Status DC Potassium Phosphate 500 mg 500 mg DAILY PO Last administered on 11/28/16 08:40 ; Start 11/10/16 at 09:00 Potassium Phosphate/Sodium Chloride (Potassium Phosphate Inj/NS 250 ml Inj) 260 ml @ 42 mls/hr UNSCH PRN IV SEE LABEL COMMENTS Last administered on 11/10/16 06:09; Start 11/07/16 at 08:45; Stop 11/28/16 at 10:41; Status DC Potassium Chloride 100 ml @ 50 mls/hr Q2H PRN IV For Potassium 3.3 - 3.5 mEq/ L Last administered on 11/17/16 07:53; Start 11/07/16 at 08:45; Stop 11/28/16 at 10:41; Status DC Propofol (Diprivan 1000 Mg/100ml Inj) 100 ml @ 0 mls/hr TITRATE IV Last administered on 11/17/16 10:23; Start 11/07/16 at 03:45; Stop 11/17/16 at 15:47 ; Status DC Sodium Chloride (NS 1000 ml Inj) 100 ml @ 1,000 mls/hr Q6M ONCE IV ; Start 11/06 at 13:00; Stop 11/06/16 at 13:05; Status DC Sodium Chloride (NS Flush) 2 ml BID IV FLUSH Last administered on 11/28/16 08: 40; Start 11/06/16 at 21:00 Sodium Chloride (Sodium Chloride) 2 gm BID PO Last administered on 11/28/16 08 :40; Start 11/13/16 at 14:00 Sodium Phosphate/ Sodium Chloride (Sodium Phosphate Inj/NS 250 ml Inj) 250 ml @ 42 mls/hr UNSCH PRN IV For Phosphorus < 2.5 mg/dL; Start 11/07/16 at 08:45; Stop 11/28/16 at 10:41; Status DC Vancomycin HCl 1000 mg/Sodium Chloride 250 ml @ 250 mls/hr Q24H IV ; Start 11/05 at 17:00; Stop 11/05/16 at 17:00; Status DC Vancomycin HCl 1250 mg/Sodium Chloride 262.5 ml @ 250 mls/hr Q24H IV Last administered on 11/09/16 09:13; Start 11/07/16 at 09:00; Stop 11/09/16 at 10:39 ; Status DC Vancomycin HCl 1500 mg/Sodium Chloride 515 ml @ 257.5 mls/ hr Q18H IV ; Start 11/11/16 at 18:00; Stop 11/11/16 at 18:22; Status DC Vancomycin HCl/ Sodium Chloride (Vancomycin Inj/ NS 250 ml Inj) 262.5 ml @ 250 mls/hr Q18H IV Last administered on 11/11/16 15:23; Start 11/10/16 at 03:00; Stop 11/11/16 at 16:08; Status DC Vancomycin HCl/ Sodium Chloride (Vancomycin Inj/ NS 500 ml Inj) 515 ml @ 257.5 mls/ hr Q18H IV Last administered on 11/12/16t 05:49; Start 11/12/16 at 06:00; Stop 11/12/16 at 10:22; Status DC Assessment and Plan Problem List: (1) Nausea & vomiting Status: Resolved (2) Weakness Status: Chronic (3) Leukocytosis Status: Resolved Plan: surgical site debrided wbc improved hr and temp controlled blood cultures show gram pos cocci further id pending (4) Hypokalemia Status: Resolved Plan: on potassium replacement protocall (5) Dural tear Status: Resolved Plan: treated surgically with blood and dural patch drain removed Assessment and Plan pt progressing slowly csf drain removed vss responsive working with PT will need [facility] [place] prealbumin 12 testosterone levels still pending no testosterone gel in hospital pharmacy will prescribe androgel 1.62% daily (or equilavent) family will flower picker med and turn in to nursing testosterone therapy discussed with Araseli Marin MD 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
[2016-11-28] MEDS: ACETAMINOPHEN 325 MG TAB PO PRN (12:20)
--- NOTE | 2016-11-28 16:31 | HHI.NSPN ---
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 Patient presents to the emergency room on 11/05/16 with decreasing mental status, GI symptoms, and subsequent opening of the wound with wound dehiscence and purulent drainage. 11/07/16: Patient to surgery on an urgent basis for evacuation of epidural abscess , wound debridement. Patient found to have pre-existing dural tear with CSF leakage which could not be primarily repaired. Indirect repair of dural tear with blood clot, Gelfoam, thrombin, tissue glue and reclosure of wound site. 11/08/16: Patient remains intubated, sedated, head of bed flat. Dressing dry and intact 11/09/16: Patient remains intubated. Slight amount of drainage noted from incision. Lumbar subarachnoid drain placed per interventional radiology 11/10/16: Lumbar subarachnoid drain is not functioning well. Discussed with nursing staff 11/11/16: Intermittent drainage from subarachnoid drain. Wound and dressing dry and the morning. 11/12/16: Subarachnoid drain with minimal output. Mild drainage from wound. To OR for: 1. Exploration and debridement previous L4 5 wound site. 2. Revision indirect closure right L4 5 lateral dural tear 3. Placement of lumbar subarachnoid drain, removal previous subarachnoid drain 11/13: pt intubated, POD 1 s/p replacement of lumbar drain with closure of CSF with leak with Dr. Melissa 11/14: intubated, more awake today, moving legs more. 17: POD # 3, patient remains intubated, opens eyes spontaneously, following commands, lumbar drain still in place, daughter reports that patient did attempt to reach for ETT yesterday with both upper extremities 11/17/16: Extubated. Sitting up in bed. Lumbar drain remains in place 11/18: Patient states she is doing good. She denies any pain. Lumbar drain still in place. 11/19: Patient states she still doing well. She denied any pain or headache. Her daughter did state that she had a terrible headache yesterday but has not complained of any today. She also stated that her mother is confused and not acting her self and at times is childish, having stuck her tongue out at the daughter. The lumbar drain remains in place. 11/20/16: CT scan was small right parieto-occipital subdural effusion without significant mass effect. Dressing dry. Drain closed the reservoir 11/21/16: Small amount of drainage from the incision. Drain reopened. 11/22/16: Drainage has stopped functioning in the afternoon. Dressing remains dry. 11/23: Patient states that she is doing good but does endorse back pain. Less confused today. 11/24: Patient drowsy today but doing okay she says. She had a rough night and did not sleep well. Nursing reports a few drops of drainage along incision this morning but when she was up to the chair she had a good bit of drainage from the lumbar surgical incision which was pinkish in colour. 11/25: Patient awake & alert, denies any complaints. 11/26: Patient looks good this afternoon. Family says she is more alert than she has been. 11/27: Patient doing well. Drain in place 11/28: Patient doing well. Drain in place, 40cc in 24hr Labs, Micro, & Vital Signs Results Date Time Temp Pulse Resp B/P Pulse Ox O2 Delivery O2 Flow Rate FiO2 11/28/16 16:00 96.4 77 16 138/68 99 11/28/16 12:00 97.6 75 16 130/66 99 11/28/16 08:00 96.3 77 17 146/65 97 11/28/16 04:59 97.7 82 17 148/67 97 11/28/16 00:00 97.9 80 17 142/67 94 11/27/16 20:00 97.7 86 17 127/62 96 11/27/16 19:50 87 11/28/16 07:00 Intake Total 910 ml Output Total 1840 ml Balance -930 ml Constitutional Vital Signs Date Time Temp Pulse Resp B/P Pulse Ox O2 Delivery O2 Flow Rate FiO2 11/28/16 16:00 96.4 77 16 138/68 99 11/28/16 12:00 97.6 75 16 130/66 99 11/28/16 08:00 96.3 77 17 146/65 97 11/28/16 04:59 97.7 82 17 148/67 97 11/28/16 00:00 97.9 80 17 142/67 94 11/27/16 20:00 97.7 86 17 127/62 96 11/27/16 19:50 87 11/28/16 07:00 Intake Total 910 ml Output Total 1840 ml Balance -930 ml Review of Systems/Exam Exam Resp: CTAB w/o W/R/R, equal excursion, non-laboured, on NC. CV: S1S2 w/RRR, w/o M/G/R. Monitor is sinus rhythm w/o any ectopy noted. GI: Abdomen soft, nontender, positive bowel sounds. Extremities: Warm, dry & pink, no deformity or clubbing. Neuro: AA&O x3. Speech clear & appropriate. Follows commands. Sensation to light touch grossly intact to all extremities. Moderate strength to major flexion & extension groups to all extremities. Back: Dry & intact surgical dressing w/o any shadowing noted, drain to gravity drainage w/sanguinous drainage, mildly TTP. Medications Current Medications Current Medications Acetaminophen 650 mg 650 mg ONCE ONCE PO Last administered on 11/05/16 02:55; Start 11/05/16 at 02:00; Stop 11/05/16 at 02:01; Status DC Sodium Chloride (NS 1000 ml Inj) 1,000 ml @ 2,000 mls/hr Q30M ONCE IV Last administered on 11/05/16 02:54; Start 11/05/16 at 02:00; Stop 11/05/16 at 02:29; Status DC Morphine Sulfate (Morphine Inj) 4 mg ONCE ONCE IV PUSH Last administered on 02:55; Start 11/05/16 at 02:00; Stop 11/05/16 at 02:01; Status DC Ondansetron HCl 4 mg 4 mg ONCE ONCE IV Last administered on 11/05/16 02:54; Start 11/05/16 at 02:00; Stop 11/05/16 at 02:01; Status DC Sodium Chloride 1,000 ml @ 2,000 mls/hr Q30M ONCE IV Last administered on 03:35; Start 11/05/16 at 03:15; Stop 11/05/16 at 03:44; Status DC Cefepime HCl 2000 mg/Sodium Chloride 100 ml @ 200 mls/hr ONCE ONCE IV Last administered on 11/05/16 03:36; Start 11/05/16 at 03:15; Stop 11/05/16 at 03:44; Status DC Vancomycin HCl/ Sodium Chloride (Vancomycin Inj/ NS 250 ml Inj) 250 ml @ 250 mls/hr ONCE ONCE IV Last administered on 11/05/16 03:35; Start 11/05/16 at 03: 15; Stop 11/05/16 at 04:14; Status DC Iohexol (Omnipaque 350 Inj) 80 ml STK-MED ONCE IV Last administered on 04:31; Start 11/05/16 at 04:31; Stop 11/05/16 at 04:32; Status DC Morphine Sulfate (Morphine Inj) 4 mg ONCE ONCE IV PUSH Last administered on 05:11; Start 11/05/16 at 05:00; Stop 11/05/16 at 05:01; Status DC Ondansetron HCl 4 mg 4 mg Q6H PRN IV NAUSEA Last administered on 11/05/16 06:46 ; Start 11/05/16 at 06:45; Stop 11/05/16 at 13:26; Status DC Sodium Chloride (NS 1000 ml Inj) 1,000 ml @ 42 mls/hr [id number] IV Last administered on 11/09/16 02:10; Start 11/05/16 at 07:00; Stop 11/09/16 at 10:49 ; Status DC Diatrizoate Meglum/ Diatrizoate Sod ( Gastroview Liq) 18 ml ONCE ONCE PO Last administered on 11/05/16 12:33; Start 11/05/16 at 11:49; Stop 11/05/16 at 11: 57; Status DC Ondansetron HCl (Zofran Inj) 4 mg Q4HR PRN IV NAUSEA; Start 11/05/16 at 16:00; Stop 11/06/16 at 12:42; Status DC Pantoprazole Sodium 40 mg 40 mg Q24H IV PUSH Last administered on 11/05/16 17: 05; Start 11/05/16 at 16:00; Stop 11/06/16 at 15:16; Status DC Vancomycin HCl 1000 mg/Sodium Chloride 250 ml @ 250 mls/hr Q24H IV ; Start 11/05 at 17:00; Stop 11/05/16 at 17:00; Status DC Aztreonam 1000 mg/ Sodium Chloride 100 ml @ 200 mls/hr Q12H IV Last administered on 11/06/16 05:24; Start 11/05/16 at 18:00; Stop 11/06/16 at 12:26; Status DC Pharmacy Profile Note 0 ml @ 0 mls/hr UNSCH OTHER ; Start 11/05/16 at 16:30; Stop 11/05/16 at 16:32; Status DC Pharmacy Profile Note ml @ 0 mls/hr UNSCH OTHER ; Start 11/05/16 at 16:45; Stop 11/12/16 at 10:22; Status DC Vancomycin HCl/ Sodium Chloride (Vancomycin Inj/ NS 250 ml Inj) 262.5 ml @ 250 mls/hr Q18H IV ; Start 11/05/16 at 18:00; Stop 11/05/16 at 18:50; Status DC Miscellaneous Information SPECIFIC LAB TO BE DRAWN:VANCOMYCIN TROUGH DATE TO... ONCE ONCE .XX ; Start 11/07/16 at 05:45; Stop 11/07/16 at 05:46; Status Cancel Morphine Sulfate (Morphine Inj) 1 mg Q6H PRN IV PAIN SCALE 1-5 Last administered on 11/06/16 00:32; Start 11/05/16 at 18:00; Stop 11/06/16 at 12:36; Status DC Morphine Sulfate (Morphine Inj) 2 mg Q6H PRN IV PAIN SCALE 6-10 Last administered on 11/05/16 18:31; Start 11/05/16 at 18:00; Stop 11/06/16 at 12:36; Status DC Acetaminophen 650 mg 650 mg Q4H PRN RECTAL FEVER > 101 Last administered on 11/05 18:30; Start 11/05/16 at 18:30 Vancomycin HCl/ Sodium Chloride (Vancomycin Inj/ NS 250 ml Inj) 262.5 ml @ 250 mls/hr Q18H IV Last administered on 11/05/16 20:09; Start 11/05/16 at 21:00; Stop 11/06/16 at 09:00; Status DC Miscellaneous Information SPECIFIC LAB TO BE DRAWN:VANCOMYCIN TROUGH DATE TO... ONCE ONCE .XX ; Start 11/07/16 at 08:45; Stop 11/07/16 at 08:46; Status DC Ceftazidime 2000 mg/Sodium Chloride 100 ml @ 200 mls/hr Q8H IV Last administered on 11/09/16 14:00; Start 11/06/16 at 14:00; Stop 11/09/16 at 21:17 ; Status DC Metronidazole (Flagyl 500 Mg Inj) 100 ml @ 100 mls/hr Q8H IV Last administered on 11/09/16 20:19; Start 11/06/16 at 13:00; Stop 11/09/16 at 21:17 ; Status DC Sodium Chloride (NS Flush) 2 ml UNSCH PRN IV FLUSH FLUSH AFTER USING IV ACCESS Last administered on 11/11/16 08:31; Start 11/06/16 at 12:30 Sodium Chloride (NS Flush) 2 ml BID IV FLUSH Last administered on 11/28/16 08: 40; Start 11/06/16 at 21:00 Acetaminophen (Tylenol) 650 mg Q6H PRN PO PAIN 1-6 AND/OR FEVER >101F Last administered on 11/28/16 12:20; Start 11/06/16 at 12:30 Famotidine (Pepcid Inj) 10 mg Q12H IV PUSH Last administered on 11/07/16 04:22 ; Start 11/06/16 at 16:00; Stop 11/07/16 at 15:36; Status DC Ondansetron HCl (Zofran Inj) 4 mg Q6H PRN IV NAUSEA OR VOMITING Last administered on 11/25/16 18:20; Start 11/06/16 at 12:30 Bisacodyl (Dulcolax Supp) 10 mg DAILY PRN RECTAL CONSTIPATION; Start 11/06/16 at 12:30 Albuterol/ Ipratropium (Duoneb Neb) 1 ampule Q6HR NEB INH Last administered on 11/14/16 08:16; Start 11/06/16 at 16:00; Stop 11/14/16 at 12:44; Status DC Miscellaneous Information 1 Q361D XX ; Start 11/06/16 at 12:30 Chlorhexidine Gluconate (Chlorhexidine 2% Cloth) 3 pack Taper DAILY@04 TOP Last administered on 11/27/16 04:00; Start 11/07/16 at 04:00; Stop 11/03/17 at 03 :59 Chlorhexidine Gluconate 3 pack 3 pack UNSCH PRN TOP HYGIENIC CARE; Start at 12:30 Sodium Chloride 1,000 ml @ 1,000 mls/hr Q1H ONCE IV ; Start 11/06/16 at 13:00; Stop 11/06/16 at 13:59; Status DC Sodium Chloride 1,000 ml @ 1,000 mls/hr Q1H ONCE IV ; Start 11/06/16 at 13:00; Stop 11/06/16 at 13:59; Status DC Sodium Chloride (NS 1000 ml Inj) 100 ml @ 1,000 mls/hr Q6M ONCE IV ; Start 11/06 at 13:00; Stop 11/06/16 at 13:05; Status DC Dextrose (D50w (Vial) Inj) 25 ml UNSCH PRN IV PUSH HYPOGLYCEMIA-SEE COMMENTS; Start 11/06/16 at 14:15; Stop 11/11/16 at 18:24; Status DC Glucagon (Glucagon Inj) 1 mg UNSCH PRN OTHER HYPOGLYCEMIA-SEE COMMENTS; Start 11/06/16 at 14:15; Stop 11/11/16 at 18:24; Status DC Insulin Human Regular (NovoLIN R SUPPLEMENTAL SCALE) 1 ACHS SLIDING SCALE SQ ; Start 11/06/16 at 16:00; Stop 11/07/16 at 04:14; Status DC Midazolam HCl (Versed Inj) 0.5 mg Q5M PRN IV RESTLESSNESS X 4 DOSES MAX; Start 11/06/16 at 15:00; Stop 11/06/16 at 15:21; Status DC Gadobenate Dimeglumine (Multihance Pf Inj) 10 ml STK-MED ONCE IV Last administered on 11/06/16 15:00; Start 11/06/16 at 15:00; Stop 11/06/16 at 15:01; Status DC Gelatin (Gelfoam 100 Top) 1 foam STK-MED ONCE .ROUTE ; Start 11/06/16 at 20:02; Stop 11/06/16 at 20:03; Status DC Lidocaine/ Epinephrine (Xylocaine-Epi 1%-1:100,000 Inj) 50 ml STK-MED ONCE .ROUTE ; Start 11/06/16 at 20:02; Stop 11/06/16 at 20:03; Status DC Gentamicin Sulfate (Gentamicin Inj) 240 mg STK-MED ONCE .ROUTE ; Start 11/06/16 at 20:03; Stop 11/06/16 at 20:04; Status DC Thrombin (Thrombin Top Soln) 10,000 units STK-MED ONCE .ROUTE ; Start 11/06/16 at 20:03; Stop 11/06/16 at 20:04; Status DC Lidocaine/ Epinephrine (Xylocaine-Epi 1%-1:100,000 Inj) 50 ml STK-MED ONCE INFIL Last administered on 11/07/16 01:00; Start 11/07/16 at 01:00; Stop at 01:40; Status DC Gentamicin Sulfate (Gentamicin Inj) 240 mg STK-MED ONCE IRRIGATION Last administered on 11/07/16 01:00; Start 11/07/16 at 01:00; Stop 11/07/16 at 01:40; Status DC Gelatin (Gelfoam 100 Top) 1 foam STK-MED ONCE OTHER Last administered on 01:00; Start 11/07/16 at 01:00; Stop 11/07/16 at 01:40; Status DC Thrombin (Thrombin Top Soln) 20,000 units STK-MED ONCE OTHER Last administered on 11/07/16 01:00; Start 11/07/16 at 01:00; Stop 11/07/16 at 01:40; Status DC Vancomycin HCl (Vancomycin Inj) 500 mg STK-MED ONCE .ROUTE ; Start 11/07/16 at 02 :14; Stop 11/07/16 at 02:15; Status DC Vancomycin HCl (Vancomycin Inj) 500 mg STK-MED ONCE IRRIGATION Last administered on 11/07/16 02:20; Start 11/07/16 at 02:20; Stop 11/07/16 at 02:25; Status DC Fentanyl Citrate 250 mcg 250 mcg STK-MED ONCE .ROUTE ; Start 11/07/16 at 03:41; Stop 11/07/16 at 03:42; Status DC Propofol (Diprivan 1000 Mg/100ml Inj) 100 ml @ 0 mls/hr TITRATE IV Last administered on 11/17/16 10:23; Start 11/07/16 at 03:45; Stop 11/17/16 at 15:47 ; Status DC Chlorhexidine Gluconate (Peridex 0.12% Liq) 15 ml BID@08,20 MT Last administered on 11/27/16 20:00; Start 11/07/16 at 08:00 Dextrose (D50w (Vial) Inj) 25 ml UNSCH PRN IV PUSH HYPOGLYCEMIA-SEE COMMENTS; Start 11/07/16 at 04:15; Stop 11/27/16 at 11:41; Status DC Glucagon (Glucagon Inj) 1 mg UNSCH PRN OTHER HYPOGLYCEMIA-SEE COMMENTS; Start 11/07/16 at 04:15; Stop 11/27/16 at 11:41; Status DC Insulin Aspart 1 1 Q6H SQ Last administered on 11/20/16 12:29; Start 11/07/16 at 06:00; Stop 11/27/16 at 11:41; Status DC Vancomycin HCl/ Sodium Chloride (Vancomycin Inj/ NS 250 ml Inj) 262.5 ml @ 250 mls/hr Q24H IV Last administered on 11/09/16 09:13; Start 11/07/16 at 09:00; Stop 11/09/16 at 10:39; Status DC Miscellaneous Information SPECIFIC LAB TO BE NIR... ONCE ONCE .XX Last administered on 11/09/16 08:45; Start 11/09/16 at 08:45; Stop 11/09/16 at 08:46 ; Status DC Potassium Chloride 100 ml @ 50 mls/hr Q2H PRN IV-CENTRAL For Potassium 2.8 - 3.2 mEq/L Last administered on 11/07/16 23:30; Start 11/07/16 at 08:45; Stop at 10:41; Status DC Potassium Chloride 100 ml @ 50 mls/hr Q2H PRN IV For Potassium 2.8 - 3.2 mEq/L ; Start 11/07/16 at 08:45; Stop 11/28/16 at 10:41; Status DC Potassium Chloride 100 ml @ 25 mls/hr UNSCH PRN IV-CENTRAL For Potassium 3.3 - 3.5 mEq/L; Start 11/07/16 at 08:45; Stop 11/28/16 at 10:41; Status DC Potassium Chloride 100 ml @ 50 mls/hr Q2H PRN IV For Potassium 3.3 - 3.5 mEq/ L Last administered on 11/17/16 07:53; Start 11/07/16 at 08:45; Stop 11/28/16 at 10:41; Status DC Magnesium Sulfate/ Sodium Chloride (Magnesium Sulfate Inj/NS Inj) 100 ml @ 50 mls/hr UNSCH PRN IV For Magnesium 0.9 - 1.1 mg/dL; Start 11/07/16 at 08:45; Stop 11/28/16 at 10:41; Status DC Magnesium Oxide 800 mg 800 mg UNSCH PRN PO For Magnesium 1.2 - 1.6 mg/dL Last administered on 11/11/16 08:31; Start 11/07/16 at 08:45; Stop 11/28/16 at 10:41 ; Status DC Magnesium Sulfate/ Sodium Chloride (Magnesium Sulfate Inj/NS Inj) 100 ml @ 50 mls/hr UNSCH PRN IV For Magnesium 1.2 - 1.6 mg/dL Last administered on 06:47; Start 11/07/16 at 08:45; Stop 11/28/16 at 10:41; Status DC Potassium Phosphate 2000 mg 2,000 mg Q4H PRN PO For Phosphorus < 2.5 mg/dL Last administered on 11/12/16 08:42; Start 11/07/16 at 08:45; Stop 11/28/16 at 10:41; Status DC Sodium Phosphate/ Sodium Chloride (Sodium Phosphate Inj/NS 250 ml Inj) 250 ml @ 42 mls/hr UNSCH PRN IV For Phosphorus < 2.5 mg/dL; Start 11/07/16 at 08:45; Stop 11/28/16 at 10:41; Status DC Potassium Phosphate 2000 mg 2,000 mg UNSCH PRN PO/TUBE SEE LABEL COMMENTS; Start 11/07/16 at 08:45; Stop 11/28/16 at 10:41; Status DC Potassium Phosphate/Sodium Chloride (Potassium Phosphate Inj/NS 250 ml Inj) 260 ml @ 42 mls/hr UNSCH PRN IV SEE LABEL COMMENTS Last administered on 11/10/16 06:09; Start 11/07/16 at 08:45; Stop 11/28/16 at 10:41; Status DC Furosemide (Lasix Inj) 20 mg NOW ONCE IV PUSH Last administered on 11/07/16 16 :27; Start 11/07/16 at 15:45; Stop 11/07/16 at 15:46; Status DC Famotidine 20 mg 20 mg Q12H IV PUSH Last administered on 11/28/16 04:22; Start 11/07/16 at 16:00 Fentanyl Citrate 250 ml @ 0 mls/hr TITRATE IV Last administered on 11/07/16 21: 10; Start 11/07/16 at 21:00; Stop 11/08/16 at 10:20; Status DC Multivitamins 10 ml/Folic Acid 1 mg/Amino Acids/ Electrolytes/ Dextrose 1,010.2 ml @ 42 mls/hr Q24H IV Last administered on 11/08/16 10:30; Start 11/08/16 at 11:00; Stop 11/08/16 at 19:59; Status DC Fat Emulsion Intravenous (Liposyn Iii 20% Inj) 250 ml @ 10 mls/hr Q24H IV Last administered on 11/08/16 10:46; Start 11/08/16 at 11:00; Stop 11/08/16 at 19:59; Status DC Metoprolol Tartrate 2.5 mg 2.5 mg Q6H PRN IV PUSH SYS BP GREATER THAN 160 MMHG Last administered on 11/12/16 05:08; Start 11/08/16 at 14:45 Multivitamins 10 ml/Folic Acid 1 mg/Amino Acids/ Electrolytes/ Dextrose 1,010.2 ml @ 42 mls/hr Q24H IV Last administered on 11/16/16 19:42; Start 11/08/16 at 20:00; Stop 11/17/16 at 16:55; Status DC Fat Emulsion Intravenous (Liposyn Iii 20% Inj) 250 ml @ 10 mls/hr Q24H IV Last administered on 11/16/16 19:42; Start 11/08/16 at 20:00; Stop 11/17/16 at 16:56; Status DC Hydromorphone HCl 1 mg 1 mg Q2HR PRN IV PUSH PAIN SCALE 7 TO 10 Last administered on 11/19/16 22:40; Start 11/08/16 at 15:45; Stop 11/20/16 at 18:08 ; Status DC Sodium Chloride 1,000 ml @ 0 mls/hr Q0M IV Last administered on 11/18/16 20: 46; Start 11/09/16 at 09:53 Vancomycin HCl/ Sodium Chloride (Vancomycin Inj/ NS 250 ml Inj) 262.5 ml @ 250 mls/hr Q18H IV Last administered on 11/11/16 15:23; Start 11/10/16 at 03:00; Stop 11/11/16 at 16:08; Status DC Miscellaneous Information SPECIFIC LAB TO BE DRAWN:VANCOMYCIN TROUGH DATE TO... ONCE ONCE .XX Last administered on 11/11/16 14:00; Start 11/11/16 at 14:45; Stop 11/11/16 at 14:46; Status DC Potassium Phosphate (K-Phos) 500 mg DAILY PO ; Start 11/09/16 at 11:00; Status Cancel Potassium Phosphate 500 mg 500 mg DAILY PO Last administered on 11/28/16 08:40 ; Start 11/10/16 at 09:00 Cefazolin Sodium/ Sodium Chloride (Ancef Inj/NS Inj) 100 ml @ 200 mls/hr Q8HR IV Last administered on 11/13/16 15:12; Start 11/09/16 at 22:00; Stop at 23:09; Status DC Furosemide 20 mg 20 mg ONCE ONCE IV PUSH Last administered on 11/11/16 14:00 ; Start 11/11/16 at 13:45; Stop 11/11/16 at 13:47; Status DC Vancomycin HCl/ Sodium Chloride (Vancomycin Inj/ NS 500 ml Inj) 515 ml @ 257.5 mls/ hr Q18H IV ; Start 11/11/16 at 18:00; Stop 11/11/16 at 18:22; Status DC Miscellaneous Information SPECIFIC LAB TO BE DRAWN:VANCOMYIN TROUGH DATE TO... ONCE ONCE .XX ; Start 11/14/16 at 11:45; Stop 11/14/16 at 11:46; Status Cancel Vancomycin HCl/ Sodium Chloride (Vancomycin Inj/ NS 500 ml Inj) 515 ml @ 257.5 mls/ hr Q18H IV Last administered on 11/12/16 05:49; Start 11/12/16 at 06:00; Stop 11/12/16 at 10:22; Status DC Gadodiamide (Omniscan Pf Inj) 15 ml STK-MED ONCE IV Last administered on 12:50; Start 11/12/16 at 12:50; Stop 11/12/16 at 12:51; Status DC Vancomycin HCl (Vancomycin Inj) 1,000 mg STK-MED ONCE .ROUTE ; Start 11/12/16 at 19:05; Stop 11/12/16 at 19:06; Status DC Thrombin (Thrombin Top Soln) 5,000 units STK-MED ONCE .ROUTE Last administered on 11/12/16 21:00; Start 11/12/16 at 19:05; Stop 11/12/16 at 19:06; Status DC Gelatin (Gelfoam 100 Top) 1 foam STK-MED ONCE .ROUTE Last administered on 21:00; Start 11/12/16 at 19:06; Stop 11/12/16 at 19:07; Status DC Lidocaine/ Epinephrine (Xylocaine-Epi 1%-1:100,000 Inj) 50 ml STK-MED ONCE .ROUTE ; Start 11/12/16 at 19:06; Stop 11/12/16 at 19:07; Status DC Gentamicin Sulfate (Gentamicin Inj) 240 mg STK-MED ONCE .ROUTE Last administered on 11/12/16 21:00; Start 11/12/16 at 19:06; Stop 11/12/16 at 19:07 ; Status DC Thrombin (Thrombin Top Soln) 5,000 units STK-MED ONCE TOPICAL Last administered on 11/12/16 21:00; Start 11/12/16 at 21:00; Stop 11/12/16 at 21:37 ; Status DC Vancomycin HCl (Vancomycin Inj) 500 mg STK-MED ONCE .ROUTE ; Start 11/12/16 at 22:16; Stop 11/12/16 at 22:17; Status DC Labetalol HCl (Trandate Inj) 10 mg Q1H PRN IV SYS BP GREATER THAN 170 MMHG Last administered on 11/13/16 09:09; Start 11/13/16 at 01:30 Sodium Chloride (Sodium Chloride) 2 gm BID PO Last administered on 11/28/16 08 :40; Start 11/13/16 at 14:00 Furosemide 20 mg 20 mg ONCE ONCE IV PUSH Last administered on 11/13/16 15:12 ; Start 11/13/16 at 14:15; Stop 11/13/16 at 14:16; Status DC Cefazolin Sodium/ Dextrose (Ancef 2 Gm Premix) 50 ml @ 100 mls/hr Q8H IV Last administered on 11/28/16 14:22; Start 11/13/16 at 22:00 Phenylephrine HCl 1000 mcg 1,000 mcg STK-MED ONCE IV ; Start 11/07/16 at 12:00; Stop 11/16/16 at 10:08; Status DC Sodium Chloride 250 ml @ As Directed STK-MED ONCE IV ; Start 11/07/16 at 12:00; Stop 11/16/16 at 10:08; Status DC Sodium Chloride (NS 1000 ml Inj) 1,000 ml @ As Directed STK-MED ONCE IV ; Start 11/07/16 at 12:00; Stop 11/16/16 at 10:08; Status DC Albuterol/ Ipratropium (Duoneb Neb) 1 ampule Q6HR NEB NEB Last administered on 11/21/16 10:05; Start 11/17/16 at 16:00; Stop 11/21/16 at 16:00; Status DC Albuterol/ Ipratropium (Duoneb Neb) 1 ampule Q2HR NEB PRN NEB SHORTNESS OF BREATH Last administered on 11/21/16 16:05; Start 11/17/16 at 15:45 Metoprolol Tartrate (Lopressor) 25 mg Q12HR PO Last administered on 11/19/16 08:38; Start 11/18/16 at 09:00; Stop 11/19/16 at 09:58; Status DC Metoprolol Tartrate (Lopressor) 12.5 mg Q12HR PO Last administered on 08:20; Start 11/19/16 at 21:00; Stop 11/24/16 at 11:40; Status DC Miscellaneous (Pill Splitter) 1 ea UNSCH PRN OTHER SEE LABEL COMMENTS; Start at 10:15 Hydromorphone HCl (Dilaudid Pf Inj) 0.5 mg Q2HR PRN IV PUSH PAIN SCALE 7 TO 10 Last administered on 11/26/16 19:04; Start 11/20/16 at 18:15 Amlodipine Besylate (Norvasc) 10 mg DAILY PO Last administered on 11/28/16 08: 40; Start 11/23/16 at 09:00 Metoprolol Tartrate (Lopressor) 25 mg Q12HR PO Last administered on 11/28/16 08:40; Start 11/24/16 at 21:00 Thrombin (Thrombin Top Soln) 10,000 units STK-MED ONCE .ROUTE Last administered on 11/26/16 08:08; Start 11/26/16 at 06:59; Stop 11/26/16 at 07:00 ; Status DC Gelatin (Gelfoam 100 Top) 1 foam STK-MED ONCE .ROUTE Last administered on 08:08; Start 11/26/16 at 06:59; Stop 11/26/16 at 07:00; Status DC Gentamicin Sulfate (Gentamicin Inj) 240 mg STK-MED ONCE .ROUTE Last administered on 11/26/16 08:08; Start 11/26/16 at 06:59; Stop 11/26/16 at 07:00 ; Status DC Lidocaine/ Epinephrine (Xylocaine-Epi 1%-1:100,000 Inj) 40 ml STK-MED ONCE .ROUTE ; Start 11/26/16 at 07:00; Stop 11/26/16 at 07:01; Status DC Acetaminophen (Ofirmev Inj) 1,000 mg STK-MED ONCE IV ; Start 11/26/16 at 07:32; Stop 11/26/16 at 07:33; Status DC Fentanyl Citrate (fentaNYL INJ) 250 mcg STK-MED ONCE .ROUTE ; Start 11/26/16 at 07:32; Stop 11/26/16 at 07:33; Status DC Miscellaneous Information ALL NURSING DEPARTME... UNSCH PRN .XX SEE LABEL COMMENTS; Start 11/26/16 at 09:38; Stop 11/27/16 at 09:37; Status DC Patient Own Medication PT OWN MED: TESTOSTERONE TOPI... DAILY TOPICAL ; Start at 09:00; Status Hold Medical Decision Making MDM Remarks Status post repeat debridement lumbar wound dehiscence, replacement lumbar subarachnoid drain, indirect closure of CSF leak and dural tear on 11/12/16. S/P lumbar wound revision 11/26/16. Doing well. Plan Plan Remarks Continue neuro checks Keep patient off of back Mobilize to chair w/assistance Continue drain. Luis Lora MD Nov 28, 2016 16:31
[2016-11-28] MEDS: HYDROmorphone HCL PF 1 MG/ML VIAL IV PUSH PRN (17:42)
[2016-11-29 00:20] VITALS: BP 120/58; PULSE 80; RESP 17; TEMP 97.4; O2SAT 98
[2016-11-29 03:48] VITALS: BP 127/61; PULSE 80; RESP 16; TEMP 97.4; O2SAT 97
[2016-11-29] MEDS: CHLORHEXIDINE GLUCONATE 2 % 1 PACK (2 CLOTHS) TOP SCH (03:50)
[2016-11-29] MEDS: ceFAZolin 2 GM PREMIX 50 ML IV SCH ×3 (05:07→22:27)
[2016-11-29] MEDS: FAMOTIDINE 20 MG/2 ML VIAL IV PUSH SCH ×2 (05:07→17:27)
[2016-11-29 06:01] LABS: AUTOMATED NEUTROPHIL # 2.6 TH/MM3 (1.8-7.7); BASOPHIL % 0.6 % (0.0-2.0); EOSINOPHIL # 0.2 TH/MM3 (0-0.4); EOSINOPHIL % 5.2 % (0.0-4.0); HEMATOCRIT 24.3 % (35.0-46.0); HEMO FLAGS DIFF FINAL; LYMPH % 8.1 % (9.0-44.0); LYMPHOCYTE # 0.3 TH/MM3 (1.0-4.8); MEAN CELL VOLUME 94.3 FL (80.0-100.0); MEAN CORPUSCULAR HEMOGLOBIN 30.9 PG (27.0-34.0); MEAN CORPUSCULAR HGB CONC 32.8 % (32.0-36.0); MONO % 16.3 % (0.0-8.0); NEUT % 69.8 % (16.0-70.0); PLATELET COUNT 206 TH/MM3 (150-450); RED BLOOD COUNT 2.58 MIL/MM3 (4.00-5.30); RED CELL DISTRIBUTION WIDTH 14.7 % (11.6-17.2); WHITE BLOOD COUNT 3.8 TH/MM3 (4.0-11.0)
[2016-11-29 06:29] LABS: BICARBONATE 28.3 MEQ/L (21.0-32.0); POTASSIUM 4.2 MEQ/L (3.5-5.1)
[2016-11-29] MEDS: SODIUM CHLORIDE 1 GRAM TAB PO SCH ×2 (07:58→22:27)
[2016-11-29] MEDS: POTASSIUM PHOSPHATE MONOBASIC 500 MG TAB PO SCH (07:58)
[2016-11-29] MEDS: METOPROLOL TARTRATE 25 MG TAB PO SCH ×2 (07:58→22:26)
[2016-11-29 08:00] VITALS: BP 130/58; PULSE 81; RESP 16; TEMP 97.4; O2SAT 95
[2016-11-29] MEDS: CHLORHEXIDINE 0.12% (ORAL KIT) 15 ML CUP MT SCH ×2 (08:00→20:00)
[2016-11-29] MEDS: SODIUM CHLORIDE 0.9% FLUSH 10 ML FLUSH IV FLUSH SCH ×2 (08:02→21:00)
--- NOTE | 2016-11-29 08:37 | HHI.PR ---
Subjective Remarks Patient is alert and cooperative. Denies any CP or SOB. VSS and Afebrile. Nursing reports patient is confused at times Objective Vital Signs Date Time Temp Pulse Resp B/P Pulse Ox O2 Delivery O2 Flow Rate FiO2 11/29/16 03:48 97.4 80 16 127/61 97 11/29/16 00:20 97.4 80 17 120/58 98 11/28/16 21:00 77 11/28/16 20:00 98.0 78 18 133/60 99 11/28/16 16:00 96.4 77 16 138/68 99 11/28/16 12:00 97.6 75 16 130/66 99 I/O 11/28/16 11/28/16 11/28/16 11/29/16 11/29/16 11/29/16 07:00 15:00 23:00 07:00 15:00 23:00 Intake Total 280 ml 240 ml 280 ml 180 ml Output Total 450 ml 405 ml 385 ml 300 ml Balance -170 ml -165 ml -105 ml -120 ml Intake Oral 180 ml 240 ml 280 ml 180 ml IV Total 100 ml Output Urine Total 400 ml 400 ml 380 ml 300 ml Drainage Total 50 ml 5 ml 5 ml # Bowel Movements 1 2 1 Result Diagram: 11/29/16 0511/29/16 05 Procedures replacement of CSF drain and dural patch 11/12 evacuation of epidural abscess 11/07 had laminectomy Lumbar drain placed on the Objective Remarks GENERAL: Alert and cooperative SKIN: Warm and dry. Lumbar dressing on back HEAD: Normocephalic. EYES: No scleral icterus. No injection or drainage. NECK: Supple, trachea midline. No JVD or lymphadenopathy. CARDIOVASCULAR: Regular rate and rhythm without murmurs, gallops, or rubs. RESPIRATORY: Breath sounds equal bilaterally. No accessory muscle use. GASTROINTESTINAL: Abdomen soft, non-tender, nondistended. MUSCULOSKELETAL: No cyanosis or edema. lumbar drain in place Medications and IVs Current Medications Medications (Trade) Dose Ordered Sig/Aleja Route Start Time Stop Time Status Last Admin (Tylenol Supp) 650 mg Q4H PRN RECTAL 11/05/16 18:30 11/05/16 18:30 (NS Flush) 2 ml UNSCH PRN IV FLUSH 11/06/16 12:30 11/11/16 08:31 (NS Flush) 2 ml BID IV FLUSH 11/06/16 21:00 11/29/16 08:02 (Tylenol) 650 mg Q6H PRN PO 11/06/16 12:30 11/28/16 12:20 (Zofran Inj) 4 mg Q6H PRN IV 11/06/16 12:30 11/25/16 18:20 (Dulcolax Supp) 10 mg DAILY PRN RECTAL 11/06/16 12:30 Miscellaneous Information 1 Q361D XX 11/06/16 12:30 (Chlorhexidine 2% Cloth) 3 pack Taper DAILY@04 TOP 11/07/16 04:00 11/03/17 03:59 11/27/16 04:00 (Chlorhexidine 2% Cloth) 3 pack UNSCH PRN TOP 11/06/16 12:30 (Peridex 0.12% Liq) 15 ml BID@08,20 MT 11/07/16 08:00 11/27/16 20:00 (Pepcid Inj) 20 mg Q12H IV PUSH 11/07/16 16:00 11/29/16 05:07 Metoprolol Tartrate 2.5 mg 2.5 mg Q6H PRN IV PUSH 11/08/16 14:45 11/12/16 05:08 (1/2 NS 1000 ml Inj) 1,000 ml @ 0 mls/hr Q0M IV 11/09/16 09:53 11/18/16 20:46 (K-Phos) 500 mg DAILY PO 11/10/16 09:00 11/29/16 07:58 (Trandate Inj) 10 mg Q1H PRN IV 11/13/16 01:30 11/13/16 09:09 Sodium Chloride 2 gm 2 gm BID PO 11/13/16 14:00 11/29/16 07:58 (Ancef 2 Gm Premix) 50 ml @ 100 mls/hr Q8H IV 11/13/16 22:00 11/29/16 05:07 (Pill Splitter) 1 ea UNSCH PRN OTHER 11/19/16 10:15 (Dilaudid Pf Inj) 0.5 mg Q2HR PRN IV PUSH 11/20/16 18:15 11/28/16 17:42 (Norvasc) 10 mg DAILY PO 11/23/16 09:00 5/1/17 07:58 (Lopressor) 25 mg Q12HR PO 11/24/16 21:00 11/29/16 07:58 Patient Own Medication PT OWN MED: TESTOSTERONE TOPI... DAILY TOPICAL 11/27/16 09:00 Hold Assessment and Plan Problem List: (1) Spinal epidural abscess Status: Acute Plan: Patient to surgery on an urgent basis on the for evacuation of epidural abscess, wound debridement. Patient found to have pre-existing dural tear with CSF leakage which could not be primarily repaired. Indirect repair of dural tear with blood clot, Gelfoam, thrombin, tissue glue and reclosure of wound site. Dressing on site. Lumbar drain removed and placed again on the secondary to increased drainage (2) Sepsis Status: Acute Plan: ID consulted and managing. On antibiotics. WBC stable at 3.8 Remains Afebrile Will need 8-12 weeks of IV antibiotics from date of last surgery per ID note (3) Respiratory failure Status: Resolved Plan: Resolved. On room air (4) Anemia Status: Acute Plan: HGB 8.0 this am. Iron replacement added. Monitoring with recheck in AM (5) Abnormal blood electrolyte level Status: Resolved Plan: Resolved (6) Hypertension Status: Acute Plan: Blood pressure controlled at 127/61 continue current regimen Assessment and Plan Assessment and plan discussed with Dr. Kendrick. Discussed Condition With Nursing Dayanara Barbour November 29, 2016 08:37
[2016-11-29 10:25] LABS: BACTERIA, URINE OCC /hpf; BLOOD, URINE MOD (NEG); COMMENT (UR) CULT NOT INDICATED; CULTURE IF INDICATED CULT NOT INDICATED; GLUCOSE,URINE NEG (NEG); HYALINE CAST, URINE 1 /lpf (RARE); KETONE, URINE NEG (NEG); MUCUS URINE FEW /lpf (OCC); NITRITE,URINE NEG (NEG); URINE COLOR YELLOW (YELLW/STRAW)
[2016-11-29] MEDS: POLYSACCHARIDE IRON COMPLEX 150 MG CAP PO SCH ×2 (10:56→22:26)
[2016-11-29 12:00] VITALS: BP 126/61; PULSE 85; RESP 16; TEMP 96.7; O2SAT 97
[2016-11-29] MEDS: HYDROmorphone HCL PF 1 MG/ML VIAL IV PUSH PRN ×2 (12:27→17:27)
--- NOTE | 2016-11-29 13:54 | HHI.IDPN ---
Subjective Subjective Remarks is an 86 y/o CF with PMHx of endometrial cancer s/p chemotherapy 5 yrs back as well as surgery. Patient reportedly had recurrence with endometrial cancer involving multiple bones of the body. She underwent 2nd set of chemotherapy for metastatic endometrial cancer. Her [facility] oncologist is Dr.Kelly Marin. Patient has a port used for chemotherapy. Most recent PET scan as reported by daughter revealed multiple bony metastasis to include skull, and right upper arm. She underwent an L4-L5 laminectomy about [facility] ago [facility]. Prior to her surgery , the patient was extremely physically active without any ambulation difficulties. She did not have any bowel bladder issues. With this background patient presents to the ED with complains of nausea, vomiting, low back pain, and chills on 11/05/2016. She was doing well initially but over the past several days complained of increased nausea, vomiting, increased low back pain, and chills. Patient's daughter reports discharge from the surgical site beginning the day prior to admission. Upon discussion with RN , patient has been wetting her bed but not voiding. No bleeding. No incontinence of bowel although suspicious bladder overflow secondary to retention. Lumbar CT scan revealed postop laminectomy L4 with fluid and scattered bubbles possibly resolving hematoma, abscess could not be excluded. ID and Critical care medicine is consulted for patients noted sepsis, and progressive weakness bilateral lower extremities. Overnight events reviewed. No fever No rash No diarrhea Extubated. Laying on side. Plan to continue monitor in ICU for now per . Not on pressors. Wiggles bilateral LE toes. Antibiotics Ancef IV Lines Line sites with no e.o infection. Past Medical History reviewed. Allergies: Coded Allergies: Penicillin (Verified Allergy, Severe, Rash, 11/06/16) Rash 2 decades back. Objective . Vital Signs Date Time Temp Pulse Resp B/P Pulse Ox O2 Delivery O2 Flow Rate FiO2 11/29/16 12:00 96.7 85 16 126/61 97 11/29/16 08:00 97.4 81 16 130/58 95 11/29/16 03:48 97.4 80 16 127/61 97 11/29/16 00:20 97.4 80 17 120/58 98 11/28/16 21:00 77 11/28/16 20:00 98.0 78 18 133/60 99 11/28/16 16:00 96.4 77 16 138/68 99 11/28/16 11/28/16 11/29/16 15:00 23:00 07:00 Intake Total 240 ml 280 ml 180 ml Output Total 405 ml 385 ml 300 ml Balance -165 ml -105 ml -120 ml Intake Oral 240 ml 280 ml 180 ml Output Urine Total 400 ml 380 ml 300 ml Drainage Total 5 ml 5 ml # Bowel Movements 2 1 . Laboratory Tests Test 11/29/16 05:20 White Blood Count 3.8 TH/MM3 Red Blood Count 2.58 MIL/MM3 Hemoglobin 8.0 GM/DL Hematocrit 24.3 % Mean Corpuscular Volume 94.3 FL Mean Corpuscular Hemoglobin 30.9 PG Mean Corpuscular Hemoglobin 32.8 % Concent Red Cell Distribution Width 14.7 % Platelet Count 206 TH/MM3 Mean Platelet Volume 8.7 FL Neutrophils (%) (Auto) 69.8 % Lymphocytes (%) (Auto) 8.1 % Monocytes (%) (Auto) 16.3 % Eosinophils (%) (Auto) 5.2 % Basophils (%) (Auto) 0.6 % Neutrophils # (Auto) 2.6 TH/MM3 Lymphocytes # (Auto) 0.3 TH/MM3 Monocytes # (Auto) 0.6 TH/MM3 Eosinophils # (Auto) 0.2 TH/MM3 Basophils # (Auto) 0.0 TH/MM3 CBC Comment DIFF FINAL Differential Comment Laboratory Tests Test 11/29/16 05:20 Sodium Level 137 MEQ/L Potassium Level 4.2 MEQ/L Chloride Level 103 MEQ/L Carbon Dioxide Level 28.3 MEQ/L Anion Gap 6 MEQ/L Blood Urea Nitrogen 18 MG/DL Creatinine 0.53 MG/DL Estimat Glomerular Filtration 110 ML/MIN Rate Random Glucose 124 MG/DL Calcium Level 8.4 MG/DL Imaging Last Impressions Chest X-Ray 11/07/16 0600 Signed Impressions: Service Date/Time: Monday, November 07, 2016 04:40 - CONCLUSION: Bibasilar and left suprahilar areas of linear density likely related to atelectasis or mild consolidation. There is a possible bone lesion in the proximal right humerus. Naveed Michael MD Lumbar Spine MRI 11/06/16 0000 Signed Impressions: Service Date/Time: Sunday, November 06, 2016 14:28 - CONCLUSION: 1. Postsurgical changes with a hematoma/seroma is noted in the posterior soft tissues just behind the spinal canal at the levels of L3-4 and L4-5. Abscess cannot be excluded. This postoperative finding measures 3.4 x 1.3 x 3.9 cm. Its creating an extra dural defect on the posterior aspect of the spinal canal. This along with broad-based bulging at L3-4 and L4-5 is causing moderate to prominent spinal canal stenosis. 2. There is primary bony degenerative changes of the lumbar spine with some disc space narrowing at L2-3 and L3-4. 3. Bilateral facet arthritis at multiple levels. Patrick Chavez MD Entire Spine MRI 11/06/16 0000 Signed Impressions: Service Date/Time: Sunday, November 06, 2016 14:28 - CONCLUSION: 1. As noted on the MRI lumbar spine there is a complex fluid collection in the soft tissues posterior to the spinal canal at the level of L4 measuring 3.4 x 3.1 x 3.9 cm suggestive of a postoperative hematoma/seroma. An abscess cannot be excluded. 2. Abnormal signal in the body of T2 suspicious for bony metastatic disease. 3. Status post fusion of C6-7. 4. Broad-based bulging with disc osteophyte complexes at C4-5 and C5-6. Possible myelopathy in the cord at this level. Patrick Chavez MD Lumbar Spine CT 11/05/16 0000 Signed Impressions: Service Date/Time: Saturday, November 05, 2016 04:14 - CONCLUSION: 1. Postop laminectomy at L4 level with fluid within the operative bed and a few scattered gas bubbles may be postsurgical change and possibly resolving hematoma, however abscess is not excluded. No definite signs of osteomyelitis. 2. Neural foramina compromise left L2-L3, bilateral L4-L5. 3. Bilateral masses compromise L5-S1. 4. Residual slight thecal sac stenosis may be present at L3-4 and L4-5. Deangelo Monsivais MD Head CT 11/05/16 0000 Signed Impressions: Service Date/Time: Saturday, November 05, 2016 16:08 - CONCLUSION: 1. No acute intracranial abnormality. Hussain Sandoval MD Abdomen/Pelvis CT 11/05/16 0000 Signed Impressions: Service Date/Time: Saturday, November 05, 2016 16:12 - CONCLUSION: 1. There is residual IV contrast within the kidneys and bladder. 2. There are no findings to indicate a bowel obstruction. 3. The patient is post hysterectomy. Hussain Sandoval MD Physical Exam GENERAL: This is a well-nourished, well-developed patient, in no apparent distress. SKIN: No rashes, ecchymoses or lesions. Cool and dry. HEAD: Atraumatic. Normocephalic. No temporal or scalp tenderness. EYES: Pupils equal round and reactive. Extraocular motions intact. No scleral icterus. No injection or drainage. ENT: Nose without bleeding, purulent drainage or septal hematoma. NECK: Intubated CARDIOVASCULAR: RRR RESPIRATORY: Clear to auscultation. Breath sounds equal bilaterally. GASTROINTESTINAL: Abdomen soft, nondistended. Surgical site not examined. Patient in head down position. MUSCULOSKELETAL: Extremities without clubbing, cyanosis, or edema. No joint tenderness, effusion, or edema noted. No calf tenderness. Negative Homans sign bilaterally. NEUROLOGICAL: Opens eyes, wiggles bilateral toes. Psych: cooperative IV line sites with no e.o infection. Assessment & Plan Remarks Sepsis present on admission (fever, tachycardia, WBC elevation, Encephalopathy) Surgical site infection at Lumbar Laminectomy (Surgery done at [facility]) Staph epidermidis bacteremia: likely contaminant as it was not present on admission and is not persistent. 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 Acute metabolic encephalopathy: sepsis, ? acute meningitis secondary to spine surgical site infection, epidural abscess Acute renal failure: prerenal, acute urinary retention. Endometrial cancer with mets to multiple bones. PCN allergy clarified. Aspiration risk. Hypoalbuminemia Recs: Continue Ancef IV Follow clinically. Will need 8-12 weeks of IV antibiotics from date of last surgery (will d.w if any plans for further surgeries and drain removal etc.) Recommend CBC with diff, CMP, CRP once a week. Has a port for IV abx infusions. Will follow prn. When ready for discharge to [place] please call me for infusion orders etc DC planning. d/w Nichole Todd MD November 29, 2016 13:53
[2016-11-29 16:00] VITALS: BP 120/55; PULSE 84; RESP 16; TEMP 97.2; O2SAT 94
--- NOTE | 2016-11-29 18:37 | HHI.NSPN ---
(Noah Ford) Note Status Status: Progress Note (Noah Ford Dejah VAZQUEZ) Interval History Diagnosis (1) Postoperative wound dehiscence (2) Postoperative CSF leak at pre-existing L4-5 laminectomy dural tear (3) Spinal epidural abscess Interval History 86-year-old female with history of lumbar laminectomy approximately 2 weeks ago in [place]. Patient presents to the emergency room on 11/05/16 with decreasing mental status, GI symptoms, and subsequent opening of the wound with wound dehiscence and purulent drainage. 11/07/16: Patient to surgery on an urgent basis for evacuation of epidural abscess , wound debridement. Patient found to have pre-existing dural tear with CSF leakage which could not be primarily repaired. Indirect repair of dural tear with blood clot, Gelfoam, thrombin, tissue glue and reclosure of wound site. 11/08/16: Patient remains intubated, sedated, head of bed flat. Dressing dry and intact 11/09/16: Patient remains intubated. Slight amount of drainage noted from incision. Lumbar subarachnoid drain placed per interventional radiology 11/10/16: Lumbar subarachnoid drain is not functioning well. Discussed with nursing staff 11/11/16: Intermittent drainage from subarachnoid drain. Wound and dressing dry and the morning. 11/12/16: Subarachnoid drain with minimal output. Mild drainage from wound. To OR for: 1. Exploration and debridement previous L4 5 wound site. 2. Revision indirect closure right L4 5 lateral dural tear 3. Placement of lumbar subarachnoid drain, removal previous subarachnoid drain 11/13: pt intubated, POD 1 s/p replacement of lumbar drain with closure of CSF with leak with Dr. Melissa 11/14: intubated, more awake today, moving legs more. 11/15: POD # 3, patient remains intubated, opens eyes spontaneously, following commands, lumbar drain still in place, daughter reports that patient did attempt to reach for ETT yesterday with both upper extremities 11/17/16: Extubated. Sitting up in bed. Lumbar drain remains in place 11/18: Patient states she is doing good. She denies any pain. Lumbar drain still in place. 11/19: Patient states she still doing well. She denied any pain or headache. Her daughter did state that she had a terrible headache yesterday but has not complained of any today. She also stated that her mother is confused and not acting her self and at times is childish, having stuck her tongue out at the daughter. The lumbar drain remains in place. 11/20/16: CT scan was small right parieto-occipital subdural effusion without significant mass effect. Dressing dry. Drain closed the reservoir 11/21/16: Small amount of drainage from the incision. Drain reopened. 11/22/16: Drainage has stopped functioning in the afternoon. Dressing remains dry. 11/23: Patient states that she is doing good but does endorse back pain. Less confused today. 11/24: Patient drowsy today but doing okay she says. She had a rough night and did not sleep well. Nursing reports a few drops of drainage along incision this morning but when she was up to the chair she had a good bit of drainage from the lumbar surgical incision which was pinkish in colour. 11/25: Patient awake & alert, denies any complaints. 11/26: Patient looks good this afternoon. Family says she is more alert than she has been. This morning she went for a lumbar wound revision. 11/27: Patient doing well. Drain in place 11/28: Patient doing well. Drain in place, 40cc in 24hr 11/29: Patient drowsy when seen. Daughter reports she had pain medication approximately 45 minutes earlier. She also reported that the patient has been confused and slightly agitated today. (Noah Ford) Labs, Micro, & Vital Signs Results Allergies Coded Allergies Type Severity Reaction Last Updated Verified Penicillin Allergy Severe Rash 11/06/16 Yes 11/27/174/29/174/30/174/30/175/1//08/17 06:00 18: 06: 18: 06: 18:00 Intake Total 150 ml 250 ml 660 ml 240 ml 460 ml 200 ml Output Total 820 ml 890 ml 950 ml 410 ml 680 ml 470 ml Balance -670 ml -640 ml -290 ml -170 ml -220 ml -270 ml Intake Oral 50 ml 250 ml 560 ml 240 ml 460 ml 200 ml IV Total 100 ml 100 ml Output Urine Total 800 ml 850 ml 900 ml 400 ml 680 ml 450 ml Drainage Total 20 ml 40 ml 50 ml 10 ml 20 ml # Bowel Movements 1 1 2 1 0 Laboratory Tests Test 11/27/16 11/29/16 11/29/16 03:20 05:20 10:08 White Blood Count 4.7 TH/MM3 3.8 TH/MM3 Red Blood Count 2.56 MIL/MM3 2.58 MIL/MM3 Hemoglobin 8.1 GM/DL 8.0 GM/DL Hematocrit 24.0 % 24.3 % Mean Corpuscular Volume 93.5 FL 94.3 FL Mean Corpuscular Hemoglobin 31.6 PG 30.9 PG Mean Corpuscular Hemoglobin 33.8 % 32.8 % Concent Red Cell Distribution Width 14.7 % 14.7 % Platelet Count 225 TH/MM3 206 TH/MM3 Mean Platelet Volume 8.5 FL 8.7 FL Neutrophils (%) (Auto) 75.9 % 69.8 % Lymphocytes (%) (Auto) 6.2 % 8.1 % Monocytes (%) (Auto) 13.5 % 16.3 % Eosinophils (%) (Auto) 3.9 % 5.2 % Basophils (%) (Auto) 0.5 % 0.6 % Neutrophils # (Auto) 3.6 TH/MM3 2.6 TH/MM3 Lymphocytes # (Auto) 0.3 TH/MM3 0.3 TH/MM3 Monocytes # (Auto) 0.6 TH/MM3 0.6 TH/MM3 Eosinophils # (Auto) 0.2 TH/MM3 0.2 TH/MM3 Basophils # (Auto) 0.0 TH/MM3 0.0 TH/MM3 CBC Comment DIFF FINAL DIFF FINAL Differential Comment Sodium Level 136 MEQ/L 137 MEQ/L Potassium Level 4.5 MEQ/L 4.2 MEQ/L Chloride Level 101 MEQ/L 103 MEQ/L Carbon Dioxide Level 26.6 MEQ/L 28.3 MEQ/L Anion Gap 8 MEQ/L 6 MEQ/L Blood Urea Nitrogen 17 MG/DL 18 MG/DL Creatinine 0.41 MG/DL 0.53 MG/DL Estimat Glomerular Filtration 147 ML/MIN 110 ML/MIN Rate Random Glucose 99 MG/DL 124 MG/DL Calcium Level 8.4 MG/DL 8.4 MG/DL C-Reactive Protein 0.64 MG/DL Urine Color YELLOW Urine Turbidity CLEAR Urine pH 8.0 Urine Specific [place] 1.016 Urine Protein 30 mg/dL Urine Glucose (UA) NEG mg/dL Urine Ketones NEG mg/dL Urine Occult Blood MOD Urine Nitrite NEG Urine Bilirubin NEG Urine Urobilinogen LESS THAN 2.0 MG/DL Urine Leukocyte Esterase NEG Urine RBC 19 /hpf Urine WBC 3 /hpf Urine Bacteria OCC /hpf Urine Hyaline Casts 1 /lpf Urine Mucus FEW /lpf Urine Yeast (Budding) OCC Microscopic Urinalysis Comment CULT NOT INDICATED Constitutional Vital Signs Date Time Temp Pulse Resp B/P Pulse Ox O2 Delivery O2 Flow Rate FiO2 11/29/16 16:00 97.2 84 16 120/55 94 11/29/16 12:00 96.7 85 16 126/61 97 11/29/16 08:00 97.4 81 16 130/58 95 11/29/16 03:48 97.4 80 16 127/61 97 11/29/16 00:20 97.4 80 17 120/58 98 11/28/16 21:00 77 11/28/16 20:00 98.0 78 18 133/60 99 11/29/16 07:00 Intake Total 700 ml Output Total 1090 ml Balance -390 ml (Noah Ford) Review of Systems/Exam ROS Unable to obtain ROS due to patient being drowsy and falling asleep. Exam Resp: CTAB w/o W/R/R, equal excursion, non-laboured, on NC. CV: S1S2 w/RRR, w/o M/G/R. GI: Abdomen soft, nontender, positive bowel sounds. Extremities: Warm, dry & pink, no deformity or clubbing. Neuro: Drowsy & drifts off to sleep. Nonverbal except for some moaning. Does follows commands. Unable to evaluate sensation. Moderate strength to major flexion & extension groups to all extremities. Back: Dressing w/minimal shadowing to inferior portion, damp, drain to gravity drainage w/serosanguinous drainage. (Noah Ford) Medications Current Medications Current Medications Medications (Trade) Dose Ordered Sig/Aleja Route Start Time Stop Time Status Last Admin (Tylenol Supp) 650 mg Q4H PRN RECTAL 11/05/16 18:30 11/05/16 18:30 (NS Flush) 2 ml UNSCH PRN IV FLUSH 11/06/16 12:30 11/11/16 08:31 (NS Flush) 2 ml BID IV FLUSH 11/06/16 21:00 11/29/16 08:02 (Tylenol) 650 mg Q6H PRN PO 11/06/16 12:30 11/28/16 12:20 (Zofran Inj) 4 mg Q6H PRN IV 11/06/16 12:30 11/25/16 18:20 (Dulcolax Supp) 10 mg DAILY PRN RECTAL 11/06/16 12:30 Miscellaneous Information 1 Q361D XX 11/06/16 12:30 (Chlorhexidine 2% Cloth) 3 pack Taper DAILY@04 TOP 11/07/16 04:00 11/03/17 03:59 11/27/16 04:00 (Chlorhexidine 2% Cloth) 3 pack UNSCH PRN TOP 11/06/16 12:30 (Peridex 0.12% Liq) 15 ml BID@08,20 MT 11/07/16 08:00 11/27/16 20:00 (Pepcid Inj) 20 mg Q12H IV PUSH 11/07/16 16:00 11/29/16 17:27 Metoprolol Tartrate 2.5 mg 2.5 mg Q6H PRN IV PUSH 11/08/16 14:45 11/12/16 05:08 (1/2 NS 1000 ml Inj) 1,000 ml @ 0 mls/hr Q0M IV 11/09/16 09:53 11/18/16 20:46 (K-Phos) 500 mg DAILY PO 11/10/16 09:00 11/29/16 07:58 (Trandate Inj) 10 mg Q1H PRN IV 11/13/16 01:30 11/13/16 09:09 Sodium Chloride 2 gm 2 gm BID PO 11/13/16 14:00 11/29/16 07:58 (Ancef 2 Gm Premix) 50 ml @ 100 mls/hr Q8H IV 11/13/16 22:00 11/29/16 12:27 (Pill Splitter) 1 ea UNSCH PRN OTHER 11/19/16 10:15 (Norvasc) 10 mg DAILY PO 11/23/16 09:00 11/29/16 07:58 (Lopressor) 25 mg Q12HR PO 11/24/16 21:00 11/29/16 07:58 Patient Own Medication PT OWN MED: TESTOSTERONE TOPI... DAILY TOPICAL 11/27/16 09:00 Hold (Nu-Iron) 150 mg Q12HR PO 11/29/16 09:00 11/29/16 10:56 (Tylenol-Codeine #3) 2 tab Q4H PRN PO 11/29/16 17:45 (Noah Ford) Medical Decision Making MDM Remarks Status post repeat debridement lumbar wound dehiscence, replacement lumbar subarachnoid drain, indirect closure of CSF leak and dural tear on 11/12/16 S/P lumbar wound revision 11/26/16 Increased confusion today Drowsy when seen due to pain medication (Noah Ford) Plan Plan Remarks Discussed plan of care with patient & family Continue neuro checks Keep patient off of back Mobilise to chair w/assistance Daily dressing changes (Noah Ford) Attending Statement I have personally seen and examined the patient on the date of this note. Pertinent documentation and study results have been reviewed by the undersigned. I have personally developed the treatment plan and performed medical decision making. Agree with findings, exam, and treatment plan as noted above. No significant drainage from incision, remain somewhat down. Continue to try to keep pressure off the drain, keep wound site clean and dry. ( Pratik Melissa MD) Noah Ford November 29, 2016 18:37 Pratik Melissa MD November 29, 2016 22:03
[2016-11-29 20:14] VITALS: BP 150/69; PULSE 86; RESP 17; TEMP 97; O2SAT 95
[2016-11-30 00:06] VITALS: BP 131/62; PULSE 90; RESP 16; TEMP 97.5; O2SAT 95
[2016-11-30] MEDS: CHLORHEXIDINE GLUCONATE 2 % 1 PACK (2 CLOTHS) TOP SCH (04:00)
[2016-11-30 04:14] VITALS: BP 152/69; PULSE 89; RESP 16; TEMP 97.1; O2SAT 96
[2016-11-30] MEDS: FAMOTIDINE 20 MG/2 ML VIAL IV PUSH SCH ×2 (04:37→16:21)
[2016-11-30] MEDS: ceFAZolin 2 GM PREMIX 50 ML IV SCH ×3 (04:37→21:51)
[2016-11-30] MEDS: CHLORHEXIDINE 0.12% (ORAL KIT) 15 ML CUP MT SCH ×2 (07:28→20:00)
--- NOTE | 2016-11-30 07:45 | HHI.PR ---
Subjective Remarks Denies any CP or SOB. VSS and Afebrile. Nursing reports patient is confused at times. Labs pending this am Objective Vital Signs Date Time Temp Pulse Resp B/P Pulse Ox O2 Delivery O2 Flow Rate FiO2 11/30/16 04:14 97.1 89 16 152/69 96 11/30/16 00:06 97.5 90 16 131/62 95 11/29/16 20:14 97.0 86 17 150/69 95 11/29/16 16:00 97.2 84 16 120/55 94 11/29/16 12:00 96.7 85 16 126/61 97 11/29/16 08:00 97.4 81 16 130/58 95 I/O 11/29/16 11/29/16 11/29/16 11/30/16 11/30/16 11/30/16 07:00 15:00 23:00 07:00 15:00 23:00 Intake Total 180 ml 200 ml 330 ml 240 ml Output Total 300 ml 470 ml 325 ml 360 ml Balance -120 ml -270 ml 5 ml -120 ml Intake Oral 180 ml 200 ml 280 ml 240 ml IV Total 50 ml Output Urine Total 300 ml 450 ml 300 ml 340 ml Drainage Total 20 ml 25 ml 20 ml # Bowel Movements 1 0 1 1 Result Diagram: 11/29/16 0520 11/29/16 05 Procedures replacement of CSF drain and dural patch 11/12 evacuation of epidural abscess 11/07 had laminectomy Lumbar drain placed on the Objective Remarks GENERAL: Alert and cooperative SKIN: Warm and dry. Pale HEAD: Normocephalic. EYES: No scleral icterus. No injection or drainage. NECK: Supple, trachea midline. No JVD or lymphadenopathy. CARDIOVASCULAR: Regular rate and rhythm without murmurs, gallops, or rubs. RESPIRATORY: Breath sounds equal bilaterally. No accessory muscle use. GASTROINTESTINAL: Abdomen soft, non-tender, nondistended. MUSCULOSKELETAL: No cyanosis or edema. lumbar drain in place Medications and IVs Current Medications Medications (Trade) Dose Ordered Sig/Aleja Route Start Time Stop Time Status Last Admin (Tylenol Supp) 650 mg Q4H PRN RECTAL 11/05/16 18:30 11/05/16 18:30 (NS Flush) 2 ml UNSCH PRN IV FLUSH 11/06/16 12:30 11/11/16 08:31 (NS Flush) 2 ml BID IV FLUSH 11/06/16 21:00 11/29/16 21:00 (Tylenol) 650 mg Q6H PRN PO 11/06/16 12:30 11/28/16 12:20 (Zofran Inj) 4 mg Q6H PRN IV 11/06/16 12:30 11/25/16 18:20 (Dulcolax Supp) 10 mg DAILY PRN RECTAL 11/06/16 12:30 Miscellaneous Information 1 Q361D XX 11/06/16 12:30 (Chlorhexidine 2% Cloth) 3 pack Taper DAILY@04 TOP 11/07/16 04:00 11/03/17 03:59 11/27/16 04:00 (Chlorhexidine 2% Cloth) 3 pack UNSCH PRN TOP 11/06/16 12:30 (Peridex 0.12% Liq) 15 ml BID@08,20 MT 11/07/16 08:00 11/27/16 20:00 (Pepcid Inj) 20 mg Q12H IV PUSH 11/07/16 16:00 11/30/16 04:37 Metoprolol Tartrate 2.5 mg 2.5 mg Q6H PRN IV PUSH 11/08/16 14:45 11/12/16 05:08 (1/2 NS 1000 ml Inj) 1,000 ml @ 0 mls/hr Q0M IV 11/09/16 09:53 11/18/16 20:46 (K-Phos) 500 mg DAILY PO 11/10/16 09:00 11/29/16 07:58 (Trandate Inj) 10 mg Q1H PRN IV 11/13/16 01:30 11/13/16 09:09 Sodium Chloride 2 gm 2 gm BID PO 11/13/16 14:00 11/29/16 22:27 (Ancef 2 Gm Premix) 50 ml @ 100 mls/hr Q8H IV 11/13/16 22:00 11/30/16 04:37 (Pill Splitter) 1 ea UNSCH PRN OTHER 11/19/16 10:15 (Norvasc) 10 mg DAILY PO 11/23/16 09:00 11/29/16 07:58 (Lopressor) 25 mg Q12HR PO 11/24/16 21:00 11/29/16 22:26 Patient Own Medication PT OWN MED: TESTOSTERONE TOPI... DAILY TOPICAL 11/27/16 09:00 Hold (Nu-Iron) 150 mg Q12HR PO 11/29/16 09:00 11/29/16 22:26 (Tylenol-Codeine #3) 2 tab Q4H PRN PO 11/29/16 17:45 Assessment and Plan Problem List: (1) Spinal epidural abscess Status: Acute Plan: Patient to surgery on an urgent basis on the for evacuation of epidural abscess, wound debridement. Patient found to have pre-existing dural tear with CSF leakage which could not be primarily repaired. Indirect repair of dural tear with blood clot, Gelfoam, thrombin, tissue glue and reclosure of wound site. Dressing on site. Lumbar drain removed and placed again on the secondary to increased drainage (2) Sepsis Status: Acute Plan: ID consulted and managing. On antibiotics. WBC pending. Remains Afebrile Will need 8-12 weeks of IV antibiotics from date of last surgery per ID note (3) Respiratory failure Status: Resolved Plan: Resolved. On room air (4) Anemia Status: Acute Plan: HGB pending this AM. On iron replacement. Monitoring (5) Abnormal blood electrolyte level Status: Resolved Plan: Resolved (6) Hypertension Status: Acute Plan: Blood pressure controlled. On metoprolol and amlodipine. will continue to monitor. (7) Altered mental status Status: Acute Plan: labs are pending this am. May be related to pain medication. Dilaudid discontinued last night and tylenol # 3 added for pain. Will obtain a Head CT. Assessment and Plan Assessment and plan discussed with Dr. Kendrick. Discussed Condition With Nursing. Discharge Planning [facility] at discharge Dayanara Barbour November 30, 2016 07:45
[2016-11-30 08:00] VITALS: BP 146/64; PULSE 86; RESP 17; TEMP 98.4; O2SAT 97
[2016-11-30] MEDS: POLYSACCHARIDE IRON COMPLEX 150 MG CAP PO SCH ×2 (08:20→21:50)
[2016-11-30] MEDS: SODIUM CHLORIDE 0.9% FLUSH 10 ML FLUSH IV FLUSH SCH ×2 (08:20→21:00)
[2016-11-30] MEDS: SODIUM CHLORIDE 1 GRAM TAB PO SCH ×2 (08:20→21:50)
[2016-11-30] MEDS: METOPROLOL TARTRATE 25 MG TAB PO SCH ×2 (08:20→21:50)
[2016-11-30] MEDS: POTASSIUM PHOSPHATE MONOBASIC 500 MG TAB PO SCH (08:20)
[2016-11-30 12:00] VITALS: BP 113/54; PULSE 79; RESP 17; TEMP 98.1; O2SAT 99
--- NOTE | 2016-11-30 12:51 | HHI.NSPN ---
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 Patient presents to the emergency room on 11/05/16 with decreasing mental status, GI symptoms, and subsequent opening of the wound with wound dehiscence and purulent drainage. 11/07/16: Patient to surgery on an urgent basis for evacuation of epidural abscess , wound debridement. Patient found to have pre-existing dural tear with CSF leakage which could not be primarily repaired. Indirect repair of dural tear with blood clot, Gelfoam, thrombin, tissue glue and reclosure of wound site. 11/08/16: Patient remains intubated, sedated, head of bed flat. Dressing dry and intact 11/09/16: Patient remains intubated. Slight amount of drainage noted from incision. Lumbar subarachnoid drain placed per interventional radiology 11/10/16: Lumbar subarachnoid drain is not functioning well. Discussed with nursing staff 11/11/16: Intermittent drainage from subarachnoid drain. Wound and dressing dry and the morning. 11/12/16: Subarachnoid drain with minimal output. Mild drainage from wound. To OR for: 1. Exploration and debridement previous L4 5 wound site. 2. Revision indirect closure right L4 5 lateral dural tear 3. Placement of lumbar subarachnoid drain, removal previous subarachnoid drain 11/13: pt intubated, POD 1 s/p replacement of lumbar drain with closure of CSF with leak with Dr. Melissa 11/14: intubated, more awake today, moving legs more. 11/15: POD # 3, patient remains intubated, opens eyes spontaneously, following commands, lumbar drain still in place, daughter reports that patient did attempt to reach for ETT yesterday with both upper extremities 11/17/16: Extubated. Sitting up in bed. Lumbar drain remains in place 11/18: Patient states she is doing good. She denies any pain. Lumbar drain still in place. 11/19: Patient states she still doing well. She denied any pain or headache. Her daughter did state that she had a terrible headache yesterday but has not complained of any today. She also stated that her mother is confused and not acting her self and at times is childish, having stuck her tongue out at the daughter. The lumbar drain remains in place. 11/20/16: CT scan was small right parieto-occipital subdural effusion without significant mass effect. Dressing dry. Drain closed the reservoir 11/21/16: Small amount of drainage from the incision. Drain reopened. 11/22/16: Drainage has stopped functioning in the afternoon. Dressing remains dry. 11/23: Patient states that she is doing good but does endorse back pain. Less confused today. 11/24: Patient drowsy today but doing okay she says. She had a rough night and did not sleep well. Nursing reports a few drops of drainage along incision this morning but when she was up to the chair she had a good bit of drainage from the lumbar surgical incision which was pinkish in colour. 11/25: Patient awake & alert, denies any complaints. 11/26: Patient looks good this afternoon. Family says she is more alert than she has been. This morning she went for a lumbar wound revision. 11/27: Patient doing well. Drain in place 11/28: Patient doing well. Drain in place, 40cc in 24hr 11/29: Patient drowsy when seen. Daughter reports she had pain medication approximately 45 minutes earlier. She also reported that the patient has been confused and slightly agitated today. 11/30: Patient awake & alert. Daughter states patient is still confused. Previously while hospitalised she was able to tell her daughter exactly what bills needed to be paid and when. Today she was able to tell her daughter anything about the bill in her hand. She was conversant and stated she was fine. She did not have any complaints. (Noah Ford) Labs, Micro, & Vital Signs Results Allergies Coded Allergies Type Severity Reaction Last Updated Verified Penicillin Allergy Severe Rash 11/06/16 Yes 11/28/174/30/175////// 06: 18:00 06:00 18:00 06:00 18:00 Intake Total 660 ml 240 ml 460 ml 200 ml 570 ml Output Total 950 ml 410 ml 680 ml 470 ml 685 ml Balance -290 ml -170 ml -220 ml -270 ml -115 ml Intake Oral 560 ml 240 ml 460 ml 200 ml 520 ml IV Total 100 ml 50 ml Output Urine Total 900 ml 400 ml 680 ml 450 ml 640 ml Drainage Total 50 ml 10 ml 20 ml 45 ml # Bowel Movements 1 2 1 0 2 Laboratory Tests Test 11/29/16 11/29/16 05:20 10:08 White Blood Count 3.8 TH/MM3 Red Blood Count 2.58 MIL/MM3 Hemoglobin 8.0 GM/DL Hematocrit 24.3 % Mean Corpuscular Volume 94.3 FL Mean Corpuscular Hemoglobin 30.9 PG Mean Corpuscular Hemoglobin 32.8 % Concent Red Cell Distribution Width 14.7 % Platelet Count 206 TH/MM3 Mean Platelet Volume 8.7 FL Neutrophils (%) (Auto) 69.8 % Lymphocytes (%) (Auto) 8.1 % Monocytes (%) (Auto) 16.3 % Eosinophils (%) (Auto) 5.2 % Basophils (%) (Auto) 0.6 % Neutrophils # (Auto) 2.6 TH/MM3 Lymphocytes # (Auto) 0.3 TH/MM3 Monocytes # (Auto) 0.6 TH/MM3 Eosinophils # (Auto) 0.2 TH/MM3 Basophils # (Auto) 0.0 TH/MM3 CBC Comment DIFF FINAL Differential Comment Sodium Level 137 MEQ/L Potassium Level 4.2 MEQ/L Chloride Level 103 MEQ/L Carbon Dioxide Level 28.3 MEQ/L Anion Gap 6 MEQ/L Blood Urea Nitrogen 18 MG/DL Creatinine 0.53 MG/DL Estimat Glomerular Filtration 110 ML/MIN Rate Random Glucose 124 MG/DL Calcium Level 8.4 MG/DL C-Reactive Protein 0.64 MG/DL Urine Color YELLOW Urine Turbidity CLEAR Urine pH 8.0 Urine Specific [place] 1.016 Urine Protein 30 mg/dL Urine Glucose (UA) NEG mg/dL Urine Ketones NEG mg/dL Urine Occult Blood MOD Urine Nitrite NEG Urine Bilirubin NEG Urine Urobilinogen LESS THAN 2.0 MG/DL Urine Leukocyte Esterase NEG Urine RBC 19 /hpf Urine WBC 3 /hpf Urine Bacteria OCC /hpf Urine Hyaline Casts 1 /lpf Urine Mucus FEW /lpf Urine Yeast (Budding) OCC Microscopic Urinalysis Comment CULT NOT INDICATED Constitutional Vital Signs Date Time Temp Pulse Resp B/P Pulse Ox O2 Delivery O2 Flow Rate FiO2 11/30/16 08:00 98.4 86 17 146/64 97 11/30/16 04:14 97.1 89 16 152/69 96 11/30/16 00:06 97.5 90 16 131/62 95 11/29/16 20:14 97.0 86 17 150/69 95 11/29/16 16:00 97.2 84 16 120/55 94 11/30/16 07:00 Intake Total 770 ml Output Total 1155 ml Balance -385 ml (Noah Ford) Review of Systems/Exam ROS Neuro: Denies any headache, dizziness, numbness or tingling. Resp: Denies any shortness of breath or productive cough. Cardiac: Denies any chest pain, palpitations or irregular heart beat. GI: Denies any abdominal pain, N/V, or incontinence of bowel. MS: Denies any back, arm or leg pain. Exam Resp: CTAB w/o W/R/R, equal excursion, non-laboured, on NC. CV: S1S2 w/RRR, w/o M/G/R. GI: Abdomen soft, nontender, positive bowel sounds. Extremities: Warm, dry & pink, no deformity or clubbing. Neuro: Awake & alert, oriented to self, year & being in a hospital, does pick out [facility] in a list of hospitals. Speech clear. Follows simple commands. Sensation grossly intact to light touch to all extremities. Moderate strength to major flexion & extension groups to all extremities. Back: Drain to gravity drainage w/serosanguinous drainage. (Noah Ford) Medications Current Medications Current Medications Medications (Trade) Dose Ordered Sig/Aleja Route Start Time Stop Time Status Last Admin (Tylenol Supp) 650 mg Q4H PRN RECTAL 11/05/16 18:30 11/05/16 18:30 (NS Flush) 2 ml UNSCH PRN IV FLUSH 11/06/16 12:30 11/11/16 08:31 (NS Flush) 2 ml BID IV FLUSH 11/06/16 21:00 11/30/16 08:20 (Tylenol) 650 mg Q6H PRN PO 11/06/16 12:30 11/28/16 12:20 (Zofran Inj) 4 mg Q6H PRN IV 11/06/16 12:30 11/25/16 18:20 (Dulcolax Supp) 10 mg DAILY PRN RECTAL 11/06/16 12:30 Miscellaneous Information 1 Q361D XX 11/06/16 12:30 (Chlorhexidine 2% Cloth) 3 pack Taper DAILY@04 TOP 11/07/16 04:00 11/03/17 03:59 11/27/16 04:00 (Chlorhexidine 2% Cloth) 3 pack UNSCH PRN TOP 11/06/16 12:30 (Peridex 0.12% Liq) 15 ml BID@08,20 MT 11/07/16 08:00 11/27/16 20:00 (Pepcid Inj) 20 mg Q12H IV PUSH 11/07/16 16:00 11/30/16 04:37 Metoprolol Tartrate 2.5 mg 2.5 mg Q6H PRN IV PUSH 11/08/16 14:45 11/12/16 05:08 (1/2 NS 1000 ml Inj) 1,000 ml @ 0 mls/hr Q0M IV 11/09/16 09:53 11/18/16 20:46 (K-Phos) 500 mg DAILY PO 11/10/16 09:00 11/30/16 08:20 (Trandate Inj) 10 mg Q1H PRN IV 11/13/16 01:30 11/13/16 09:09 Sodium Chloride 2 gm 2 gm BID PO 11/13/16 14:00 11/30/16 08:20 (Ancef 2 Gm Premix) 50 ml @ 100 mls/hr Q8H IV 11/13/16 22:00 11/30/16 04:37 (Pill Splitter) 1 ea UNSCH PRN OTHER 11/19/16 10:15 (Norvasc) 10 mg DAILY PO 11/23/16 09:00 11/30/16 08:20 (Lopressor) 25 mg Q12HR PO 11/24/16 21:00 11/30/16 08:20 Patient Own Medication PT OWN MED: TESTOSTERONE TOPI... DAILY TOPICAL 11/27/16 09:00 Hold (Nu-Iron) 150 mg Q12HR PO 11/29/16 09:00 5/2/17 08:20 (Tylenol-Codeine #3) 2 tab Q4H PRN PO 11/29/16 17:45 (Noah Ford) Medical Decision Making MDM Remarks Status post repeat debridement lumbar wound dehiscence, replacement lumbar subarachnoid drain, indirect closure of CSF leak and dural tear on 11/12/16 S/P lumbar wound revision 11/26/16 Slight improvement in confusion today, otherwise neurologically stable (Noah Ford) Plan Plan Remarks Discussed plan of care with patient & family Continue neuro checks Keep patient off of back Mobilise to chair w/assistance Daily dressing changes CT brain w/o contrast today UA with C&S if indicated today (Noah Ford) Attending Statement I have personally seen and examined the patient on the date of this note. Pertinent documentation and study results have been reviewed by the undersigned. I have personally developed the treatment plan and performed medical decision making. Agree with findings, exam, and treatment plan as noted above. Findings were discussed with the patient and her family in the room this morning. She is a little less alert, perhaps more confused this morning. A follow-up CT scan of the head was obtained which has been reviewed by the undersigned and does not reveal any significant abnormalities. Wound care nurse has evaluated the patient and the wound is more dry. Still mild output through the lumbar drain. This will be left in place for the time being in order to allow the incision to remain dry . (Pratik Melissa MD) Noah Ford November 30, 2016 12:51 Pratik Melissa MD November 30, 2016 18:34
--- NOTE | 2016-11-30 14:29 | RADRPT ---
EXAM DATE/TIME: 11/30/2016 13:55 [facility] COMPARISON: MRI BRAIN W/O CONTRAST, November 12, 2016, 11:46. CT BRAIN W/O CONTRAST, November 20, 2016, 8:56. INDICATIONS : Altered Mental Status RADIATION DOSE: 35.25 CTDIvol (mGy) MEDICAL HISTORY : Endometrial cancer SURGICAL HISTORY : None. ENCOUNTER: Subsequent ACUITY: 1 week PAIN SCALE: 6/10 LOCATION: Bilateral back TECHNIQUE: Multiple contiguous axial images were obtained of the head. Using automated exposure control and adj ustment of the mA and/or kV according to patient size, radiation dose was kept as low as reasonably a chievable to obtain optimal diagnostic quality images. FINDINGS: The appearance of the brain is stable. Again seen are areas of higher attenuation involving the occip ital horns bilaterally. This does not have the typical layering appearance of hemorrhage. It is also unchanged in density than the prior study. I feel this likely relates to calcifications as opposed to hemorrhage. Periventricular low attenuation change of both cerebral hemispheres is stable. No hemorr lenny or acute infarction. Paranasal sinuses and mastoid air cells are clear. Calvarium is intact. CONCLUSION: 1. No acute intracranial abnormality. 2. Chronic small vessel ischemic change. Narayan Capps Jr., MD on November 30, 2016 at 14:24 Board Certified Radiologist. This report was verified electronically.
[2016-11-30 15:26] LABS: AUTOMATED NEUTROPHIL # 3.8 TH/MM3 (1.8-7.7); BASOPHIL % 0.6 % (0.0-2.0); EOSINOPHIL # 0.2 TH/MM3 (0-0.4); EOSINOPHIL % 3.8 % (0.0-4.0); HEMATOCRIT 24.3 % (35.0-46.0); LYMPH % 7.2 % (9.0-44.0); LYMPHOCYTE # 0.4 TH/MM3 (1.0-4.8); MEAN CELL VOLUME 93.5 FL (80.0-100.0); MEAN CORPUSCULAR HEMOGLOBIN 30.9 PG (27.0-34.0); MEAN CORPUSCULAR HGB CONC 33.1 % (32.0-36.0); MONO % 11.4 % (0.0-8.0); PLATELET COUNT 226 TH/MM3 (150-450); RED CELL DISTRIBUTION WIDTH 14.9 % (11.6-17.2); RETIC % 1.2 % (0.4-3.0); WHITE BLOOD COUNT 4.9 TH/MM3 (4.0-11.0)
[2016-11-30 15:35] LABS: HEMO FLAGS DIFF FINAL; REVIEW FLAG FINAL
[2016-11-30 15:46] LABS: ANION GAP 6 MEQ/L (5-15); BICARBONATE 27.1 MEQ/L (21.0-32.0); BLOOD UREA NITROGEN 24 MG/DL (7-18); CHLORIDE 104 MEQ/L (98-107); GLOMERULAR FILTRATION RATE 126 ML/MIN (>89); POTASSIUM 4.4 MEQ/L (3.5-5.1); SODIUM (NA) 137 MEQ/L (136-145); TRANSFERRIN IRON PROFILE 182 MG/DL (200-360)
[2016-11-30 15:50] LABS: FERRITIN 412 NG/ML (8-252)
[2016-11-30 16:00] VITALS: BP 123/60; PULSE 81; RESP 16; TEMP 97.1; O2SAT 97
[2016-11-30] MEDS: ACETAMINOPHEN/CODEINE 300 MG/30 MG TAB PO PRN (16:27)
[2016-11-30 20:00] VITALS: BP 111/51; PULSE 79; RESP 18; TEMP 96.4; O2SAT 99
[2016-12-01] VITALS: BP 122/63; PULSE 78; RESP 18; TEMP 96.1; O2SAT 99
[2016-12-01 04:00] VITALS: BP 126/58; PULSE 77; RESP 18; TEMP 96.4; O2SAT 99
[2016-12-01] MEDS: CHLORHEXIDINE GLUCONATE 2 % 1 PACK (2 CLOTHS) TOP SCH (04:00)
[2016-12-01] MEDS: ceFAZolin 2 GM PREMIX 50 ML IV SCH ×3 (04:09→22:25)
[2016-12-01] MEDS: FAMOTIDINE 20 MG/2 ML VIAL IV PUSH SCH ×2 (04:10→16:46)
[2016-12-01] MEDS: ACETAMINOPHEN/CODEINE 300 MG/30 MG TAB PO PRN (04:14)
[2016-12-01 06:23] LABS: AUTOMATED NEUTROPHIL # 2.9 TH/MM3 (1.8-7.7); EOSINOPHIL # 0.2 TH/MM3 (0-0.4); EOSINOPHIL % 5.5 % (0.0-4.0); HEMATOCRIT 23.9 % (35.0-46.0); HEMO FLAGS DIFF FINAL; LYMPH % 8.9 % (9.0-44.0); LYMPHOCYTE # 0.4 TH/MM3 (1.0-4.8); MEAN CELL VOLUME 94.4 FL (80.0-100.0); MEAN CORPUSCULAR HEMOGLOBIN 31.6 PG (27.0-34.0); MEAN CORPUSCULAR HGB CONC 33.4 % (32.0-36.0); MONO % 14.8 % (0.0-8.0); NEUT % 69.8 % (16.0-70.0); PLATELET COUNT 216 TH/MM3 (150-450); RED BLOOD COUNT 2.53 MIL/MM3 (4.00-5.30); RED CELL DISTRIBUTION WIDTH 14.7 % (11.6-17.2); WHITE BLOOD COUNT 4.2 TH/MM3 (4.0-11.0)
[2016-12-01 06:41] LABS: BICARBONATE 27.9 MEQ/L (21.0-32.0); POTASSIUM 4.4 MEQ/L (3.5-5.1)
--- NOTE | 2016-12-01 07:38 | HHI.PR ---
Subjective Remarks Denies any CP or SOB. VSS and Afebrile. Patient is more awake this am Objective Vital Signs Date Time Temp Pulse Resp B/P Pulse Ox O2 Delivery O2 Flow Rate FiO2 12/01/16 04:00 96.4 77 18 126/58 99 12/01/16 00:00 96.1 78 18 122/63 99 11/30/16 20:00 96.4 79 18 111/51 99 11/30/16 16:00 97.1 81 16 123/60 97 11/30/16 12:00 98.1 79 17 113/54 99 11/30/16 08:00 98.4 86 17 146/64 97 I/O 11/30/16 11/30/16 11/30/16 12/01/16 12/01/16 12/01/16 07:00 15:00 23:00 07:00 15:00 23:00 Intake Total 240 ml 200 ml 1050 ml 50 ml Output Total 360 ml 575 ml 350 ml 260 ml Balance -120 ml -375 ml 700 ml -210 ml Intake Oral 240 ml 200 ml 1000 ml 0 ml IV Total 50 ml 50 ml Output Urine Total 340 ml 575 ml 350 ml 250 ml Drainage Total 20 ml 0 ml 10 ml # Bowel Movements 1 0 Result Diagram: 12/01/1645112/01/16 045 Procedures replacement of CSF drain and dural patch 11/12 evacuation of epidural abscess 11/07 had laminectomy Lumbar drain placed on the Objective Remarks GENERAL: Alert and cooperative SKIN: Warm and dry. Pale HEAD: Normocephalic. EYES: No scleral icterus. No injection or drainage. NECK: Supple, trachea midline. No JVD or lymphadenopathy. CARDIOVASCULAR: Regular rate and rhythm without murmurs, gallops, or rubs. RESPIRATORY: Breath sounds equal bilaterally. No accessory muscle use. GASTROINTESTINAL: Abdomen soft, non-tender, nondistended. MUSCULOSKELETAL: No cyanosis or edema. lumbar drain in place Medications and IVs Current Medications Medications (Trade) Dose Ordered Sig/Aleja Route Start Time Stop Time Status Last Admin (Tylenol Supp) 650 mg Q4H PRN RECTAL 11/05/16 18:30 11/05/16 18:30 (NS Flush) 2 ml UNSCH PRN IV FLUSH 11/06/16 12:30 11/11/16 08:31 (NS Flush) 2 ml BID IV FLUSH 11/06/16 21:00 11/30/16 21:00 (Tylenol) 650 mg Q6H PRN PO 11/06/16 12:30 11/28/16 12:20 (Zofran Inj) 4 mg Q6H PRN IV 11/06/16 12:30 11/25/16 18:20 (Dulcolax Supp) 10 mg DAILY PRN RECTAL 11/06/16 12:30 Miscellaneous Information 1 Q361D XX 11/06/16 12:30 (Chlorhexidine 2% Cloth) Taper DAILY@04 TOP 11/07/16 04:00 11/03/17 03:59 11/27/16 04:00 (Chlorhexidine 2% Cloth) 3 pack UNSCH PRN TOP 11/06/16 12:30 (Peridex 0.12% Liq) 15 ml BID@08,20 MT 11/07/16 08:00 11/27/16 20:00 (Pepcid Inj) 20 mg Q12H IV PUSH 11/07/16 16:00 12/01/16 04:10 Metoprolol Tartrate 2.5 mg 2.5 mg Q6H PRN IV PUSH 11/08/16 14:45 11/12/16 05:08 (1/2 NS 1000 ml Inj) 1,000 ml @ 0 mls/hr Q0M IV 11/09/16 09:53 11/18/16 20:46 (K-Phos) 500 mg DAILY PO 11/10/16 09:00 11/30/16 08:20 (Trandate Inj) 10 mg Q1H PRN IV 11/13/16 01:30 11/13/16 09:09 Sodium Chloride 2 gm 2 gm BID PO 11/13/16 14:00 11/30/16 21:50 (Ancef 2 Gm Premix) 50 ml @ 100 mls/hr Q8H IV 11/13/16 22:00 12/01/16 04:09 (Pill Splitter) 1 ea UNSCH PRN OTHER 11/19/16 10:15 (Norvasc) 10 mg DAILY PO 11/23/16 09:00 11/30/16 08:20 (Lopressor) 25 mg Q12HR PO 11/24/16 21:00 11/30/16 21:50 Patient Own Medication PT OWN MED: TESTOSTERONE TOPI... DAILY TOPICAL 11/27/16 09:00 Hold (Nu-Iron) 150 mg Q12HR PO 11/29/16 09:00 11/30/16 21:50 (Tylenol-Codeine #3) 2 tab Q4H PRN PO 11/29/16 17:45 12/01/16 04:14 Assessment and Plan Problem List: (1) Spinal epidural abscess Status: Acute Plan: Patient to surgery on an urgent basis on the for evacuation of epidural abscess, wound debridement. Patient found to have pre-existing dural tear with CSF leakage which could not be primarily repaired. Indirect repair of dural tear with blood clot, Gelfoam, thrombin, tissue glue and reclosure of wound site. Dressing on site. Lumbar drain removed and placed again on the secondary to increased drainage Wound care consulted (2) Sepsis Status: Acute Plan: ID consulted and managing. On antibiotics. WBC pending. Remains Afebrile Will need 8-12 weeks of IV antibiotics from date of last surgery per ID note (3) Respiratory failure Status: Resolved Plan: Resolved. On room air (4) Anemia Status: Acute Plan: HGB stable at 8. On iron replacement. Monitoring (5) Abnormal blood electrolyte level Status: Resolved Plan: Resolved (6) Hypertension Status: Acute Plan: Blood pressure controlled. 126/58 On metoprolol and amlodipine. will continue to monitor. (7) Altered mental status Status: Acute Plan: Mental status improved this AM. May have been related to pain medication. Dilaudid discontinued last night and tylenol # [address] Head CT with no acute findings reviewed per neurosurgeon. . Assessment and Plan Assessment and plan discussed with Dr. Kendrick. Discussed Condition With Nursing Discharge Planning [facility] Physician Attestation The exam, history, and the medical decision-making described in the above note were completed with the assistance of the mid-level provider. I reviewed and agree with the findings presented. I attest that I had a [id number] encounter with the patient on the same day, and personally performed and documented my assessment and findings in the medical record. Dayanara Barbour December 01, 2016 07:38 Nestor Kendrick DO December 01, 2016 17:21
[2016-12-01 08:00] VITALS: BP 101/47; PULSE 72; RESP 24; TEMP 97.6; O2SAT 98
[2016-12-01] MEDS: CHLORHEXIDINE 0.12% (ORAL KIT) 15 ML CUP MT SCH ×2 (08:00→20:00)
[2016-12-01] MEDS: METOPROLOL TARTRATE 25 MG TAB PO SCH ×2 (08:07→21:00)
[2016-12-01] MEDS: POLYSACCHARIDE IRON COMPLEX 150 MG CAP PO SCH ×2 (08:21→22:24)
[2016-12-01] MEDS: SODIUM CHLORIDE 0.9% FLUSH 10 ML FLUSH IV FLUSH SCH ×2 (08:21→21:00)
[2016-12-01] MEDS: SODIUM CHLORIDE 1 GRAM TAB PO SCH ×2 (08:21→22:24)
[2016-12-01] MEDS: POTASSIUM PHOSPHATE MONOBASIC 500 MG TAB PO SCH (08:21)
--- NOTE | 2016-12-01 10:25 | HHI.NSPN ---
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 Patient presents to the emergency room on 11/05/16 with decreasing mental status, GI symptoms, and subsequent opening of the wound with wound dehiscence and purulent drainage. 11/07/16: Patient to surgery on an urgent basis for evacuation of epidural abscess , wound debridement. Patient found to have pre-existing dural tear with CSF leakage which could not be primarily repaired. Indirect repair of dural tear with blood clot, Gelfoam, thrombin, tissue glue and reclosure of wound site. 11/08/16: Patient remains intubated, sedated, head of bed flat. Dressing dry and intact 11/09/16: Patient remains intubated. Slight amount of drainage noted from incision. Lumbar subarachnoid drain placed per interventional radiology 11/10/16: Lumbar subarachnoid drain is not functioning well. Discussed with nursing staff 11/11/16: Intermittent drainage from subarachnoid drain. Wound and dressing dry and the morning. 11/12/16: Subarachnoid drain with minimal output. Mild drainage from wound. To OR for: 1. Exploration and debridement previous L4 5 wound site. 2. Revision indirect closure right L4 5 lateral dural tear 3. Placement of lumbar subarachnoid drain, removal previous subarachnoid drain 11/13: pt intubated, POD 1 s/p replacement of lumbar drain with closure of CSF with leak with Dr. Melissa 11/14: intubated, more awake today, moving legs more. 11/15: POD # 3, patient remains intubated, opens eyes spontaneously, following commands, lumbar drain still in place, daughter reports that patient did attempt to reach for ETT yesterday with both upper extremities 11/17/16: Extubated. Sitting up in bed. Lumbar drain remains in place 11/18: Patient states she is doing good. She denies any pain. Lumbar drain still in place. 11/19: Patient states she still doing well. She denied any pain or headache. Her daughter did state that she had a terrible headache yesterday but has not complained of any today. She also stated that her mother is confused and not acting her self and at times is childish, having stuck her tongue out at the daughter. The lumbar drain remains in place. 11/20/16: CT scan was small right parieto-occipital subdural effusion without significant mass effect. Dressing dry. Drain closed the reservoir 11/21/16: Small amount of drainage from the incision. Drain reopened. 11/22/16: Drainage has stopped functioning in the afternoon. Dressing remains dry. 11/23: Patient states that she is doing good but does endorse back pain. Less confused today. 11/24: Patient drowsy today but doing okay she says. She had a rough night and did not sleep well. Nursing reports a few drops of drainage along incision this morning but when she was up to the chair she had a good bit of drainage from the lumbar surgical incision which was pinkish in colour. 11/25: Patient awake & alert, denies any complaints. 11/26: Patient looks good this afternoon. Family says she is more alert than she has been. This morning she went for a lumbar wound revision. 11/27: Patient doing well. Drain in place 11/28: Patient doing well. Drain in place, 40cc in 24hr 11/29: Patient drowsy when seen. Daughter reports she had pain medication approximately 45 minutes earlier. She also reported that the patient has been confused and slightly agitated today. 11/30: Patient awake & alert. Daughter states patient is still confused. Previously while hospitalised she was able to tell her daughter exactly what bills needed to be paid and when. Today she was able to tell her daughter anything about the bill in her hand. She was conversant and stated she was fine. She did not have any complaints. 12/01: Patient asleep but awakens to verbal stimuli. Drowsy as examined. She had no complaints. Nursing stated she was more awake & alert at 0700. Her daughter did report her mother had a brief episode when she was not confused yesterday and was able to discuss her bills. (Noah Ford) Labs, Micro, & Vital Signs Results Allergies Coded Allergies Type Severity Reaction Last Updated Verified Penicillin Allergy Severe Rash 11/06/16 Yes Recent Impressions Head CT 11/30/16 0000 Signed Impressions: Service Date/Time: Wednesday, November 30, 2016 13:55 - CONCLUSION: 1. No acute intracranial abnormality. 2. Chronic small vessel ischemic change. Narayan Capps Jr., MD // 06:00 18:00 06:00 18:00 06:00 18:00 Intake Total 460 ml 200 ml 570 ml 200 ml 1100 ml Output Total 680 ml 470 ml 685 ml 600 ml 610 ml Balance -220 ml -270 ml -115 ml -400 ml 490 ml Intake Oral 460 ml 200 ml 520 ml 200 ml 1000 ml IV Total 50 ml 100 ml Output Urine Total 680 ml 450 ml 640 ml 575 ml 600 ml Drainage Total 20 ml 45 ml 25 ml 10 ml # Bowel Movements 1 0 2 0 Laboratory Tests Test 11/29/16 11/29/16 11/30/16 12/01/16 05:20 10:08 14:32 04:52 White Blood Count 3.8 TH/MM3 4.9 TH/MM3 4.2 TH/MM3 Red Blood Count 2.58 MIL/MM3 2.60 MIL/MM3 2.53 MIL/MM3 Hemoglobin 8.0 GM/DL 8.0 GM/DL 8.0 GM/DL Hematocrit 24.3 % 24.3 % 23.9 % Mean Corpuscular Volume 94.3 FL 93.5 FL 94.4 FL Mean Corpuscular Hemoglobin 30.9 PG 30.9 PG 31.6 PG Mean Corpuscular Hemoglobin 32.8 % 33.1 % 33.4 % Concent Red Cell Distribution Width 14.7 % 14.9 % 14.7 % Platelet Count 206 TH/MM3 226 TH/MM3 216 TH/MM3 Mean Platelet Volume 8.7 FL 9.0 FL 9.1 FL Neutrophils (%) (Auto) 69.8 % 77.0 % 69.8 % Lymphocytes (%) (Auto) 8.1 % 7.2 % 8.9 % Monocytes (%) (Auto) 16.3 % 11.4 % 14.8 % Eosinophils (%) (Auto) 5.2 % 3.8 % 5.5 % Basophils (%) (Auto) 0.6 % 0.6 % 1.0 % Neutrophils # (Auto) 2.6 TH/MM3 3.8 TH/MM3 2.9 TH/MM3 Lymphocytes # (Auto) 0.3 TH/MM3 0.4 TH/MM3 0.4 TH/MM3 Monocytes # (Auto) 0.6 TH/MM3 0.6 TH/MM3 0.6 TH/MM3 Eosinophils # (Auto) 0.2 TH/MM3 0.2 TH/MM3 0.2 TH/MM3 Basophils # (Auto) 0.0 TH/MM3 0.0 TH/MM3 0.0 TH/MM3 CBC Comment DIFF FINAL DIFF FINAL DIFF FINAL Differential Comment Sodium Level 137 MEQ/L 137 MEQ/L 139 MEQ/L Potassium Level 4.2 MEQ/L 4.4 MEQ/L 4.4 MEQ/L Chloride Level 103 MEQ/L 104 MEQ/L 104 MEQ/L Carbon Dioxide Level 28.3 MEQ/L 27.1 MEQ/L 27.9 MEQ/L Anion Gap 6 MEQ/L 6 MEQ/L 7 MEQ/L Blood Urea Nitrogen 18 MG/DL 24 MG/DL 30 MG/DL Creatinine 0.53 MG/DL 0.47 MG/DL 0.43 MG/DL Estimat Glomerular Filtration 110 ML/MIN 126 ML/MIN 140 ML/MIN Rate Random Glucose 124 MG/DL 144 MG/DL 107 MG/DL Calcium Level 8.4 MG/DL 8.5 MG/DL 8.8 MG/DL C-Reactive Protein 0.64 MG/DL Urine Color YELLOW Urine Turbidity CLEAR Urine pH 8.0 Urine Specific [place] 1.016 Urine Protein 30 mg/dL Urine Glucose (UA) NEG mg/dL Urine Ketones NEG mg/dL Urine Occult Blood MOD Urine Nitrite NEG Urine Bilirubin NEG Urine Urobilinogen LESS THAN 2.0 MG/DL Urine Leukocyte Esterase NEG Urine RBC 19 /hpf Urine WBC 3 /hpf Urine Bacteria OCC /hpf Urine Hyaline Casts 1 /lpf Urine Mucus FEW /lpf Urine Yeast (Budding) OCC Microscopic Urinalysis Comment CULT NOT INDICATED Reticulocyte Count 1.2 % Absolute Reticulocyte Count 30.3 MIL/L Iron Level 42 MCG/DL Total Iron Binding Capacity 255 MCG/DL Percent Iron Saturation 16.5 % Ferritin 412 NG/ML Constitutional Vital Signs Date Time Temp Pulse Resp B/P Pulse Ox O2 Delivery O2 Flow Rate FiO2 12/01/16 08:00 97.6 72 24 101/47 98 12/01/16 04:00 96.4 77 18 126/58 99 12/01/16 00:00 96.1 78 18 122/63 99 11/30/16 20:00 96.4 79 18 111/51 99 11/30/16 16:00 97.1 81 16 123/60 97 11/30/16 12:00 98.1 79 17 113/54 99 12/01/16 07:00 Intake Total 1300 ml Output Total 1210 ml Balance 90 ml (Noah Ford) Review of Systems/Exam ROS Neuro: Denies any headache, dizziness, numbness or tingling. Resp: Denies any shortness of breath or productive cough. Cardiac: Denies any chest pain, palpitations or irregular heart beat. GI: Denies any abdominal pain, N/V, or incontinence of bowel. MS: Denies any back, arm or leg pain. Exam Resp: CTAB w/o W/R/R, equal excursion, non-laboured, on NC. CV: S1S2 w/RRR, w/o M/G/R. GI: Abdomen soft, nontender, positive bowel sounds. Extremities: Warm, dry & pink, no deformity or clubbing. Neuro: Asleep but awakens to verbal, drowsy as examined. Oriented to self, year & being in a hospital. Speech clear. Follows simple commands. Sensation grossly intact to light touch to all extremities. Moderate strength to major flexion & extension groups to all extremities. Back: Drain to gravity drainage w/serosanguinous drainage. Intact dressings, gauze under dressing w/serous-coloured drainage, surgical incision & drain insertion site w/o any evident erythema or streaking, incision well approximated , drainage serous in colour in drain tubing. (Noah Ford) Medications Current Medications Current Medications Medications (Trade) Dose Ordered Sig/Aleja Route Start Time Stop Time Status Last Admin (Tylenol Supp) 650 mg Q4H PRN RECTAL 11/05/16 18:30 11/05/16 18:30 (NS Flush) 2 ml UNSCH PRN IV FLUSH 11/06/16 12:30 11/11/16 08:31 (NS Flush) 2 ml BID IV FLUSH 11/06/16 21:00 12/01/16 08:21 (Tylenol) 650 mg Q6H PRN PO 11/06/16 12:30 11/28/16 12:20 (Zofran Inj) 4 mg Q6H PRN IV 11/06/16 12:30 11/25/16 18:20 (Dulcolax Supp) 10 mg DAILY PRN RECTAL 11/06/16 12:30 Miscellaneous Information 1 Q361D XX 11/06/16 12:30 (Chlorhexidine 2% Cloth) Taper DAILY@04 TOP 11/07/16 04:00 11/03/17 03:59 11/27/16 04:00 (Chlorhexidine 2% Cloth) 3 pack UNSCH PRN TOP 11/06/16 12:30 (Peridex 0.12% Liq) 15 ml BID@08,20 MT 11/07/16 08:00 11/27/16 20:00 (Pepcid Inj) 20 mg Q12H IV PUSH 11/07/16 16:00 12/01/16 04:10 Metoprolol Tartrate 2.5 mg 2.5 mg Q6H PRN IV PUSH 11/08/16 14:45 11/12/16 05:08 (1/2 NS 1000 ml Inj) 1,000 ml @ 0 mls/hr Q0M IV 11/09/16 09:53 11/18/16 20:46 (K-Phos) 500 mg DAILY PO 11/10/16 09:00 12/01/16 08:21 (Trandate Inj) 10 mg Q1H PRN IV 11/13/16 01:30 11/13/16 09:09 Sodium Chloride 2 gm 2 gm BID PO 11/13/16 14:00 12/01/16 08:21 (Ancef 2 Gm Premix) 50 ml @ 100 mls/hr Q8H IV 11/13/16 22:00 12/01/16 04:09 (Pill Splitter) 1 ea UNSCH PRN OTHER 11/19/16 10:15 (Norvasc) 10 mg DAILY PO 11/23/16 09:00 11/30/16 08:20 (Lopressor) 25 mg Q12HR PO 11/24/16 21:00 11/30/16 21:50 Patient Own Medication PT OWN MED: TESTOSTERONE TOPI... DAILY TOPICAL 11/27/16 09:00 Hold (Nu-Iron) 150 mg Q12HR PO 11/29/16 09:00 12/01/16 08:21 (Tylenol-Codeine #3) 2 tab Q4H PRN PO 11/29/16 17:45 12/01/16 04:14 (Noah Ford) Medical Decision Making MDM Remarks Status post repeat debridement lumbar wound dehiscence, replacement lumbar subarachnoid drain, indirect closure of CSF leak and dural tear on 11/12/16 S/P lumbar wound revision 11/26/16 Drowsy but neurologically stable (Noah Ford) Plan Plan Remarks Discussed plan of care with patient & family Continue neuro checks Keep patient off of back Mobilise to chair w/assistance Daily dressing changes Patient okay for discharge to [facility] for further therapy, will follow while there (Noah Ford) Attending Statement Patient seen by GEORGE Farias today. The patient's findings and treatment plan discussed with him and reviewed by the undersigned. Agree with findings and treatment plan as noted above. (Pratik Melissa MD) Noah Ford December 01, 2016 10:25 Pratik Melissa MD December 01, 2016 20:18
[2016-12-01 12:00] VITALS: BP 110/54; PULSE 76; RESP 18; TEMP 97.7; O2SAT 99
[2016-12-01 16:00] VITALS: BP 119/56; PULSE 82; RESP 17; TEMP 98.3; O2SAT 99
[2016-12-01 20:00] VITALS: BP 108/52; PULSE 88; RESP 18; TEMP 97.4; O2SAT 99
[2016-12-02] VITALS: BP 112/66; PULSE 82; RESP 20; TEMP 97.2; O2SAT 97
[2016-12-02 04:00] VITALS: BP 114/72; PULSE 79; RESP 20; TEMP 98; O2SAT 97
[2016-12-02] MEDS: CHLORHEXIDINE GLUCONATE 2 % 1 PACK (2 CLOTHS) TOP SCH (04:00)
[2016-12-02] MEDS: FAMOTIDINE 20 MG/2 ML VIAL IV PUSH SCH (05:07)
[2016-12-02] MEDS: ceFAZolin 2 GM PREMIX 50 ML IV SCH ×2 (05:07→14:03)
[2016-12-02 05:28] LABS: AUTOMATED NEUTROPHIL # 2.7 TH/MM3 (1.8-7.7); BASOPHIL % 0.7 % (0.0-2.0); EOSINOPHIL # 0.2 TH/MM3 (0-0.4); HEMATOCRIT 24.2 % (35.0-46.0); HEMO FLAGS DIFF FINAL; LYMPH % 9.4 % (9.0-44.0); LYMPHOCYTE # 0.4 TH/MM3 (1.0-4.8); MEAN CELL VOLUME 93.2 FL (80.0-100.0); MEAN CORPUSCULAR HEMOGLOBIN 30.9 PG (27.0-34.0); MEAN CORPUSCULAR HGB CONC 33.2 % (32.0-36.0); MONO % 14.5 % (0.0-8.0); NEUT % 70.4 % (16.0-70.0); PLATELET COUNT 208 TH/MM3 (150-450); RED BLOOD COUNT 2.59 MIL/MM3 (4.00-5.30); RED CELL DISTRIBUTION WIDTH 14.5 % (11.6-17.2); WHITE BLOOD COUNT 3.8 TH/MM3 (4.0-11.0)
[2016-12-02 05:58] LABS: BICARBONATE 30.9 MEQ/L (21.0-32.0); POTASSIUM 4.1 MEQ/L (3.5-5.1)
[2016-12-02 08:00] VITALS: BP 144/63; PULSE 87; RESP 20; TEMP 96.4; O2SAT 98
[2016-12-02] MEDS: CHLORHEXIDINE 0.12% (ORAL KIT) 15 ML CUP MT SCH (08:00)
[2016-12-02] MEDS: METOPROLOL TARTRATE 25 MG TAB PO SCH (08:27)
[2016-12-02] MEDS: POTASSIUM PHOSPHATE MONOBASIC 500 MG TAB PO SCH (08:27)
[2016-12-02] MEDS: SODIUM CHLORIDE 1 GRAM TAB PO SCH (08:29)
[2016-12-02] MEDS: POLYSACCHARIDE IRON COMPLEX 150 MG CAP PO SCH (08:30)
[2016-12-02] MEDS: SODIUM CHLORIDE 0.9% FLUSH 10 ML FLUSH IV FLUSH SCH (08:35)
--- NOTE | 2016-12-02 09:33 | HHI.NSPN ---
(Noah Ford) Note Status Status: Progress Note (Noah Ford Dejah VAZQUEZ) Interval History Diagnosis (1) Postoperative wound dehiscence (2) Postoperative CSF leak at pre-existing L4-5 laminectomy dural tear (3) Spinal epidural abscess Interval History 86-year-old female with history of lumbar laminectomy approximately 2 weeks ago in [place]. Patient presents to the emergency room on 11/05/16 with decreasing mental status, GI symptoms, and subsequent opening of the wound with wound dehiscence and purulent drainage. 11/07/16: Patient to surgery on an urgent basis for evacuation of epidural abscess , wound debridement. Patient found to have pre-existing dural tear with CSF leakage which could not be primarily repaired. Indirect repair of dural tear with blood clot, Gelfoam, thrombin, tissue glue and reclosure of wound site. 11/08/16: Patient remains intubated, sedated, head of bed flat. Dressing dry and intact 11/09/16: Patient remains intubated. Slight amount of drainage noted from incision. Lumbar subarachnoid drain placed per interventional radiology 11/10/16: Lumbar subarachnoid drain is not functioning well. Discussed with nursing staff 11/11/16: Intermittent drainage from subarachnoid drain. Wound and dressing dry and the morning. 11/12/16: Subarachnoid drain with minimal output. Mild drainage from wound. To OR for: 1. Exploration and debridement previous L4 5 wound site. 2. Revision indirect closure right L4 5 lateral dural tear 3. Placement of lumbar subarachnoid drain, removal previous subarachnoid drain 11/13: pt intubated, POD 1 s/p replacement of lumbar drain with closure of CSF with leak with Dr. Melissa 11/14: intubated, more awake today, moving legs more. 11/15: POD # 3, patient remains intubated, opens eyes spontaneously, following commands, lumbar drain still in place, daughter reports that patient did attempt to reach for ETT yesterday with both upper extremities 11/17/16: Extubated. Sitting up in bed. Lumbar drain remains in place 11/18: Patient states she is doing good. She denies any pain. Lumbar drain still in place. 11/19: Patient states she still doing well. She denied any pain or headache. Her daughter did state that she had a terrible headache yesterday but has not complained of any today. She also stated that her mother is confused and not acting her self and at times is childish, having stuck her tongue out at the daughter. The lumbar drain remains in place. 11/20/16: CT scan was small right parieto-occipital subdural effusion without significant mass effect. Dressing dry. Drain closed the reservoir 11/21/16: Small amount of drainage from the incision. Drain reopened. 11/22/16: Drainage has stopped functioning in the afternoon. Dressing remains dry. 11/23: Patient states that she is doing good but does endorse back pain. Less confused today. 11/24: Patient drowsy today but doing okay she says. She had a rough night and did not sleep well. Nursing reports a few drops of drainage along incision this morning but when she was up to the chair she had a good bit of drainage from the lumbar surgical incision which was pinkish in colour. 11/25: Patient awake & alert, denies any complaints. 11/26: Patient looks good this afternoon. Family says she is more alert than she has been. This morning she went for a lumbar wound revision. 11/27: Patient doing well. Drain in place 11/28: Patient doing well. Drain in place, 40cc in 24hr 11/29: Patient drowsy when seen. Daughter reports she had pain medication approximately 45 minutes earlier. She also reported that the patient has been confused and slightly agitated today. 11/30: Patient awake & alert. Daughter states patient is still confused. Previously while hospitalised she was able to tell her daughter exactly what bills needed to be paid and when. Today she was able to tell her daughter anything about the bill in her hand. She was conversant and stated she was fine. She did not have any complaints. 12/01: Patient asleep but awakens to verbal stimuli. Drowsy as examined. She had no complaints. Nursing stated she was more awake & alert at 0700. Her daughter did report her mother had a brief episode when she was not confused yesterday and was able to discuss her bills. 12/02: Patient awake, alert & more conversant today than earlier in the week. She is feeding herself her breakfast. She states she is feeling all right. She did endorse some numbness but was unable to describe where. (Noah Ford) Labs, Micro, & Vital Signs Results Allergies Coded Allergies Type Severity Reaction Last Updated Verified Penicillin Allergy Severe Rash 11/06/16 Yes Recent Impressions Head CT 11/30/16 0000 Signed Impressions: Service Date/Time: Wednesday, November 30, 2016 13:55 - CONCLUSION: 1. No acute intracranial abnormality. 2. Chronic small vessel ischemic change. Narayan Capps Jr., MD /////// 06:00 18:00 06:00 18:00 06:00 18:00 Intake Total 570 ml 200 ml 1100 ml 230 ml 540 ml Output Total 685 ml 600 ml 610 ml 325 ml 760 ml Balance -115 ml -400 ml 490 ml -95 ml -220 ml Intake Oral 520 ml 200 ml 1000 ml 180 ml 440 ml IV Total 50 ml 100 ml 50 ml 100 ml Output Urine Total 640 ml 575 ml 600 ml 300 ml 750 ml Drainage Total 45 ml 25 ml 10 ml 25 ml 10 ml # Bowel Movements 2 0 0 0 Laboratory Tests Test 11/29/16 11/30/16 12/01/16 12/02/16 10:08 14:32 04:52 04:46 Urine Color YELLOW Urine Turbidity CLEAR Urine pH 8.0 Urine Specific [place] 1.016 Urine Protein 30 mg/dL Urine Glucose (UA) NEG mg/dL Urine Ketones NEG mg/dL Urine Occult Blood MOD Urine Nitrite NEG Urine Bilirubin NEG Urine Urobilinogen LESS THAN 2.0 MG/DL Urine Leukocyte Esterase NEG Urine RBC 19 /hpf Urine WBC 3 /hpf Urine Bacteria OCC /hpf Urine Hyaline Casts 1 /lpf Urine Mucus FEW /lpf Urine Yeast (Budding) OCC Microscopic Urinalysis Comment CULT NOT INDICATED White Blood Count 4.9 TH/MM3 4.2 TH/MM3 3.8 TH/MM3 Red Blood Count 2.60 MIL/MM3 2.53 MIL/MM3 2.59 MIL/MM3 Hemoglobin 8.0 GM/DL 8.0 GM/DL 8.0 GM/DL Hematocrit 24.3 % 23.9 % 24.2 % Mean Corpuscular Volume 93.5 FL 94.4 FL 93.2 FL Mean Corpuscular Hemoglobin 30.9 PG 31.6 PG 30.9 PG Mean Corpuscular Hemoglobin 33.1 % 33.4 % 33.2 % Concent Red Cell Distribution Width 14.9 % 14.7 % 14.5 % Platelet Count 226 TH/MM3 216 TH/MM3 208 TH/MM3 Mean Platelet Volume 9.0 FL 9.1 FL 8.6 FL Neutrophils (%) (Auto) 77.0 % 69.8 % 70.4 % Lymphocytes (%) (Auto) 7.2 % 8.9 % 9.4 % Monocytes (%) (Auto) 11.4 % 14.8 % 14.5 % Eosinophils (%) (Auto) 3.8 % 5.5 % 5.0 % Basophils (%) (Auto) 0.6 % 1.0 % 0.7 % Neutrophils # (Auto) 3.8 TH/MM3 2.9 TH/MM3 2.7 TH/MM3 Lymphocytes # (Auto) 0.4 TH/MM3 0.4 TH/MM3 0.4 TH/MM3 Monocytes # (Auto) 0.6 TH/MM3 0.6 TH/MM3 0.5 TH/MM3 Eosinophils # (Auto) 0.2 TH/MM3 0.2 TH/MM3 0.2 TH/MM3 Basophils # (Auto) 0.0 TH/MM3 0.0 TH/MM3 0.0 TH/MM3 CBC Comment DIFF FINAL DIFF FINAL DIFF FINAL Differential Comment Reticulocyte Count 1.2 % Absolute Reticulocyte Count 30.3 MIL/L Sodium Level 137 MEQ/L 139 MEQ/L 140 MEQ/L Potassium Level 4.4 MEQ/L 4.4 MEQ/L 4.1 MEQ/L Chloride Level 104 MEQ/L 104 MEQ/L 105 MEQ/L Carbon Dioxide Level 27.1 MEQ/L 27.9 MEQ/L 30.9 MEQ/L Anion Gap 6 MEQ/L 7 MEQ/L 4 MEQ/L Blood Urea Nitrogen 24 MG/DL 30 MG/DL 34 MG/DL Creatinine 0.47 MG/DL 0.43 MG/DL 0.44 MG/DL Estimat Glomerular Filtration 126 ML/MIN 140 ML/MIN 136 ML/MIN Rate Random Glucose 144 MG/DL 107 MG/DL 94 MG/DL Calcium Level 8.5 MG/DL 8.8 MG/DL 8.5 MG/DL Iron Level 42 MCG/DL Total Iron Binding Capacity 255 MCG/DL Percent Iron Saturation 16.5 % Ferritin 412 NG/ML Constitutional Vital Signs Date Time Temp Pulse Resp B/P Pulse Ox O2 Delivery O2 Flow Rate FiO2 12/02/16 08:00 96.4 87 20 144/63 98 12/02/16 04:00 98.0 79 20 114/72 97 12/02/16 00:00 97.2 82 20 112/66 97 12/01/16 20:00 97.4 88 18 108/52 99 12/01/16 16:00 98.3 82 17 119/56 99 12/01/16 12:00 97.7 76 18 110/54 99 12/02/16 07:00 Intake Total 770 ml Output Total 1085 ml Balance -315 ml (Noah Ford) Review of Systems/Exam ROS Neuro: She states she has numbness but is unable to state where or point to it. Denies any headache, dizziness, or tingling. Resp: Denies any shortness of breath or productive cough. Cardiac: Denies any chest pain, palpitations or irregular heart beat. GI: Denies any abdominal pain, N/V, or incontinence of bowel. MS: Denies any back, arm or leg pain. Exam Resp: CTAB w/o W/R/R, equal excursion, non-laboured, on NC. CV: S1S2 w/RRR, w/o M/G/R. GI: Abdomen soft, nontender, positive bowel sounds. Extremities: Warm, dry & pink, no deformity or clubbing. Neuro: Awake & alert, oriented to person, place & being in a hospital and is able to pick [place] out of a list. Speech clear. Follows simple commands. Sensation grossly intact to light touch to all extremities. Moderate strength to major flexion & extension groups to all extremities. Back: Drain to gravity drainage w/serosanguinous drainage. Intact dressings, gauze under dressing w/serous-coloured drainage, surgical incision & drain insertion site w/o any evident erythema or streaking, incision well approximated , drainage serous in colour in drain tubing. (Noah Ford) Medications Current Medications Current Medications Medications (Trade) Dose Ordered Sig/Aleja Route Start Time Stop Time Status Last Admin (Tylenol Supp) 650 mg Q4H PRN RECTAL 11/05/16 18:30 4/7/17 18:30 (NS Flush) 2 ml UNSCH PRN IV FLUSH 11/06/16 12:30 11/11/16 08:31 (NS Flush) 2 ml BID IV FLUSH 11/06/16 21:00 12/01/16 21:00 (Tylenol) 650 mg Q6H PRN PO 11/06/16 12:30 11/28/16 12:20 (Zofran Inj) 4 mg Q6H PRN IV 11/06/16 12:30 11/25/16 18:20 (Dulcolax Supp) 10 mg DAILY PRN RECTAL 11/06/16 12:30 Miscellaneous Information 1 Q361D XX 11/06/16 12:30 (Chlorhexidine 2% Cloth) Taper DAILY@04 TOP 11/07/16 04:00 11/03/17 03:59 11/27/16 04:00 (Chlorhexidine 2% Cloth) 3 pack UNSCH PRN TOP 11/06/16 12:30 (Peridex 0.12% Liq) 15 ml BID@08,20 MT 11/07/16 08:00 11/27/16 20:00 (Pepcid Inj) 20 mg Q12H IV PUSH 11/07/16 16:00 12/02/16 05:07 Metoprolol Tartrate 2.5 mg 2.5 mg Q6H PRN IV PUSH 11/08/16 14:45 11/12/16 05:08 (1/2 NS 1000 ml Inj) 1,000 ml @ 0 mls/hr Q0M IV 11/09/16 09:53 11/18/16 20:46 (K-Phos) 500 mg DAILY PO 11/10/16 09:00 12/02/16 08:27 (Trandate Inj) 10 mg Q1H PRN IV 11/13/16 01:30 11/13/16 09:09 Sodium Chloride 2 gm 2 gm BID PO 11/13/16 14:00 12/02/16 08:29 (Ancef 2 Gm Premix) 50 ml @ 100 mls/hr Q8H IV 11/13/16 22:00 12/02/16 05:07 (Pill Splitter) 1 ea UNSCH PRN OTHER 11/19/16 10:15 (Norvasc) 10 mg DAILY PO 11/23/16 09:00 12/02/16 08:27 (Lopressor) 25 mg Q12HR PO 11/24/16 21:00 12/02/16 08:27 Patient Own Medication PT OWN MED: TESTOSTERONE TOPI... DAILY TOPICAL 11/27/16 09:00 Hold (Nu-Iron) 150 mg Q12HR PO 11/29/16 09:00 12/02/16 08:30 (Tylenol-Codeine #3) 2 tab Q4H PRN PO 11/29/16 17:45 12/01/16 04:14 (Noah Ford) Medical Decision Making MDM Remarks Status post repeat debridement lumbar wound dehiscence, replacement lumbar subarachnoid drain, indirect closure of CSF leak and dural tear on 11/12/16 S/P lumbar wound revision 11/26/16 Neurologically stable, more awake & conversant today (Noah Ford) Plan Plan Remarks Discussed plan of care with patient Continue neuro checks Keep patient off of back Mobilise to chair w/assistance Daily dressing changes Patient okay for discharge to [facility] for further therapy, will follow while there (Noah Ford) Attending Statement Patient is seen today by Noah VAZQUEZ. Patient has been transferred to [facility]. Her dressing has been dry for the past 2 or 3 days. We will continue to follow her in the rehabilitation center. (Pratik Melissa MD ) Noah Ford December 02, 2016 09:33 Pratik Melissa MD December 02, 2016 19:22
[2016-12-02] MEDS ORDERED: ACET325T PO (11:49)
[2016-12-02] MEDS ORDERED: K-PHTAB PO (11:49)
[2016-12-02] MEDS ORDERED: METO25TA3 PO (11:49)
[2016-12-02] MEDS ORDERED: NU-IRON PO (11:49)
[2016-12-02] MEDS ORDERED: AMLO10 PO (11:49)
[2016-12-02] MEDS ORDERED: CEFA2SOL IV (11:49)
[2016-12-02] MEDS ORDERED: IPRASOL NEB (11:49)
--- NOTE | 2016-12-02 11:50 | HHI.DCPOC ---
Discharge Care Plan Diagnosis: (1) Sepsis (2) Dural tear Your Health Problems Are: Incision/Drains Goals to Promote Your Health * To prevent worsening of your condition and complications * To maintain your health at the optimal level Directions to Meet Your Goals Take your medications as prescribed Follow your dietary instruction Follow activity as directed Keep your appointments as scheduled Take your immunizations and boosters as scheduled If your symptoms worsen call your PCP, if no PCP go to Urgent Care Center or Emergency Room Smoking is Dangerous to Your Health. Avoid second hand smoke Call the 24-hour hour crisis hotline for domestic abuse at [facility] December 02, 2016 11:50
[2016-12-02 12:00] VITALS: BP 148/63; PULSE 76; RESP 20; TEMP 97.1; O2SAT 99
--- NOTE | 2016-12-02 12:08 | HHI.DS ---
Dayanara Barbour [facility] 12/02/16 1208: Discharge Summary Admission Date Nov 05, 2016 at 03:14 Admitting Diagnosis weakness, dehydration, rule out sepsis Procedures replacement of CSF drain and dural patch 11/12 evacuation of epidural abscess 11/07 had laminectomy Lumbar drain placed on the Brief History This 86 year-old woman who presents to the emergency department complaining of nausea vomiting, low back pain, and chills. She has a history of metastatic endometrial cancer, as well as chronic back pain. The chronic back pain preceded that malignancy. She underwent an L4-L5 laminectomy about 2 weeks ago in [place]. She is doing well initially but over the past several days complained of increased nausea vomiting, increased low back pain, and chills. There is time she's also felt just generally unwell. The incision has not had any drainage or bleeding. She denies any urinary symptoms. She is a little bit of loose stools and diarrhea last week for which she took some Imodium, but no diarrhea this week. No other complaints. CBC/BMP: 12/02/16 0446 12/02/16 0446 Significant Findings Laboratory Tests Test 11/30/16 12/01/16 12/02/16 14:32 04:52 04:46 Red Blood Count 2.60 MIL/MM3 2.53 MIL/MM3 2.59 MIL/MM3 (4.00-5.30) (4.00-5.30) (4.00-5.30) Hemoglobin 8.0 GM/DL 8.0 GM/DL 8.0 GM/DL (11.6-15.3) (11.6-15.3) (11.6-15.3) Hematocrit 24.3 % 23.9 % 24.2 % (35.0-46.0) (35.0-46.0) (35.0-46.0) Neutrophils (%) (Auto) 77.0 % 70.4 % (16.0-70.0) (16.0-70.0) Lymphocytes (%) (Auto) 7.2 % 8.9 % (9.0-44.0) (9.0-44.0) Monocytes (%) (Auto) 11.4 % 14.8 % 14.5 % (0.0-8.0) (0.0-8.0) (0.0-8.0) Lymphocytes # (Auto) 0.4 TH/MM3 0.4 TH/MM3 0.4 TH/MM3 (1.0-4.8) (1.0-4.8) (1.0-4.8) Blood Urea Nitrogen 24 MG/DL (7-18) 30 MG/DL (7-18) 34 MG/DL (7-18) Creatinine 0.47 MG/DL 0.43 MG/DL 0.44 MG/DL (0.50-1.00) (0.50-1.00) (0.50-1.00) Random Glucose 144 MG/DL 107 MG/DL (74-106) (74-106) Iron Level 42 MCG/DL (50-170) Percent Iron Saturation 16.5 % (20-50) Ferritin 412 NG/ML (8-252) Eosinophils (%) (Auto) 5.5 % (0.0-4.0) 5.0 % (0.0-4.0) White Blood Count 3.8 TH/MM3 (4.0-11.0) Anion Gap 4 MEQ/L (5-15) Imaging Last [address] 11/30/16 0000 Signed Impressions: Service Date/Time: Wednesday, November 30, 2016 13:55 - CONCLUSION: 1. No acute intracranial abnormality. 2. Chronic small vessel ischemic change. Narayan Capps Jr., MD PE at Discharge GENERAL: Alert and cooperative SKIN: Warm and dry. Pale HEAD: Normocephalic. EYES: No scleral icterus. No injection or drainage. NECK: Supple, trachea midline. No JVD or lymphadenopathy. CARDIOVASCULAR: Regular rate and rhythm without murmurs, gallops, or rubs. RESPIRATORY: Breath sounds equal bilaterally. No accessory muscle use. GASTROINTESTINAL: Abdomen soft, non-tender, nondistended. MUSCULOSKELETAL: No cyanosis or edema. lumbar drain in place Hospital Course This 86 year-old woman who presents to the emergency department complaining of nausea vomiting, low back pain, and chills. She has a history of metastatic endometrial cancer, as well as chronic back pain. The chronic back pain preceded that malignancy. She underwent an L4-L5 laminectomy about 2 weeks ago in [place]. She is doing well initially but over the past several days complained of increased nausea vomiting, increased low back pain, and chills. There is time she's also felt just generally unwell. The incision has not had any drainage or bleeding. Patient in the next 24 hour became septic and back incision began to drain. On 11/07 patient was brought to [facility] on an urgent basis for evacuation of epidural abscess and wound debridement. Patient found to have pre-existing dural tear with CSF leakage which could not be primarily repaired. Indirect repair of dural tear with blood clot, Gelfoam, thrombin, tissue glue and reclosure of wound site. On the patient was brought back to OR for exploration and debridement previous L4 5 wound site. Revision indirect closure right L4 5 lateral dural tear and placement of lumbar subarachnoid drain, removal previous subarachnoid drain. Intubated on the and extubated on the . Patient reported a headache and CT scan was small right parieto-occipital subdural effusion without significant mass effect. Repeat head CT on the with no acute findings. There is a wound on back with lumbar drain in place. Wound care every 3 days orders written. She is also needing IV antibitoics ancef 2 gms every 8 hours followed by ID while in hospital. Checked with ID about duration of treatment and it was recommended that they are consulted to follow along and for further recommendations but to continue current treatment. She is in need of intensive rehab with extended hospital stay and complications. Pt Condition on Discharge: Good Discharge Disposition: Rehab Inpatient Discharge Instructions DIET: Follow Instructions for: Heart Healthy Diet Activities you can perform: Regular-No Restrictions New Medications: Cefazolin Inj (Cefazolin Inj) 2 Gm/50 Ml Bagp 2 GM IV Q8H Infection #21 Ref 0 BAG Acetaminophen (Acetaminophen) 325 Mg Tab 650 MG PO Q6H PRN PAIN 1-3 AND/OR FEVER >101F #30 TAB Amlodipine (Norvasc) 10 Mg Tab 10 MG PO DAILY Blood Pressure Management #30 TAB Ipratropium-Albuterol Neb (Duoneb) 0.5-2.5 Mg/3 Ml Neb 1 AMPULE NEB Q2HR NEB PRN SHORTNESS OF BREATH #30 ML Metoprolol Tartrate (Metoprolol Tartrate) 25 Mg Tab 25 MG PO Q12HR Blood Pressure Management #60 TAB Polysaccharide Iron Complex (Poly-Iron 150) 150 Mg Cap 150 MG PO Q12HR Electrolyte Replacement #60 CAP Potassium Phosphate Monobasic (K-Phos) 500 Mg Tab 500 MG PO DAILY Electrolyte Replacement #30 TAB Discontinued Medications: Acetaminophen-Codeine (Tylenol-Codeine #3) 300-30 mg Tab 1 TAB PO Q4H PRN PAIN Ref 0 TAB Furosemide (Lasix) 20 Mg Tab 20 MG PO DAILY DIURETIC Ref 0 TAB Ibuprofen (Ibuprofen) 200 Mg Tab 200 MG PO Q6H PRN PAIN MANAGEMENNT Ref 0 TAB Potassium Chloride ER (Klor-Con 10) 10 Meq Tab 10 MEQ PO DAILY Electrolyte Replacement Ref 0 TAB Nestor Kendrick DO 12/02/16 2253: Discharge Summary CBC/BMP: 12/02/166 12/02/16445 Discharge Instructions New Medications: Cefazolin Inj (Cefazolin Inj) 2 Gm/50 Ml Bagp 2 GM IV Q8H Infection #21 Ref 0 BAG Acetaminophen (Acetaminophen) 325 Mg Tab 650 MG PO Q6H PRN PAIN 1-3 AND/OR FEVER >101F #30 TAB Amlodipine (Norvasc) 10 Mg Tab 10 MG PO DAILY Blood Pressure Management #30 TAB Ipratropium-Albuterol Neb (Duoneb) 0.5-2.5 Mg/3 Ml Neb 1 AMPULE NEB Q2HR NEB PRN SHORTNESS OF BREATH #30 ML Metoprolol Tartrate (Metoprolol Tartrate) 25 Mg Tab 25 MG PO Q12HR Blood Pressure Management #60 TAB Polysaccharide Iron Complex (Poly-Iron 150) 150 Mg Cap 150 MG PO Q12HR Electrolyte Replacement #60 CAP Potassium Phosphate Monobasic (K-Phos) 500 Mg Tab 500 MG PO DAILY Electrolyte Replacement #30 TAB Discontinued Medications: Acetaminophen-Codeine (Tylenol-Codeine #3) 300-30 mg Tab 1 TAB PO Q4H PRN PAIN Ref 0 TAB Furosemide (Lasix) 20 Mg Tab 20 MG PO DAILY DIURETIC Ref 0 TAB Ibuprofen (Ibuprofen) 200 Mg Tab 200 MG PO Q6H PRN PAIN MANAGEMENNT Ref 0 TAB Potassium Chloride ER (Klor-Con 10) 10 Meq Tab 10 MEQ PO DAILY Electrolyte Replacement Ref 0 TAB Additional Information The exam, history, and the medical decision-making described in the above note were completed with the assistance of the mid-level provider. I reviewed and agree with the findings presented. I attest that I had a [id number] encounter with the patient on the same day, and personally performed and documented my assessment and findings in the medical record. Dayanara Barbour December 02, 2016 12:08 Nestor Kendrick DO December 02, 2016 22:53
[2016-12-16] MEDS ORDERED: MEGE40S PO (15:02)
[2016-12-16] MEDS ORDERED: RISP0.252 PO (15:02)
[2016-12-16] MEDS ORDERED: PANT40TA3 PO ×2 (15:03→15:10)
[2016-12-16] MEDS ORDERED: LEVO750T33 PO (15:03)
[2016-12-16] MEDS ORDERED: COLA100C3 PO (15:04)
[2016-12-16] MEDS ORDERED: REGL10TA5 PO (15:07)
[2016-12-16] MEDS ORDERED: SCOP1PAT2 T-DERMAL (15:10)
[2016-12-16] MEDS ORDERED: TYLETAB34 PO (15:10)
[2016-12-16] MEDS ORDERED: HEPA100I8 IV (15:10)
[2016-12-16] MEDS ORDERED: MILKSUS PO (15:13)
[2016-12-16] MEDS ORDERED: DULC10SU3 RECTAL (15:13)
[2016-12-20] MEDS ORDERED: WHEEMIS3 (12:11)
[2016-12-20] MEDS ORDERED: GETGO ROLLING W1 MI1 (12:11)
[2016-12-20] MEDS ORDERED: COMMODE 3-IN-11 MIS (12:11)
[2016-12-20] MEDS ORDERED: shower chair (12:11)
== END 2016-12-02 14:50 | DRG 856 ==
LOC: NEPC 01:13 → NEDA 03:14 → HOCA 08:55 → HIMW 11-06 12:25 → N07B 11-27 14:15
PROVIDERS: ADMIT Family Medicine; ATTEND Family Medicine
PROC: 5A1955Z Respiratory Ventilation, Greater than 96 Consecutive Hours (ICD-10-PCS; 2016-11-07)
PROC: 0JD70ZZ Extraction of Back Subcutaneous Tissue and Fascia, Open Approach (ICD-10-PCS; 2016-11-07)
PROC: 00UT0KZ Supplement Spinal Meninges with Nonautologous Tissue Substitute, Open Approach (ICD-10-PCS; 2016-11-07)
PROC: 00930ZX Drainage of Intracranial Epidural Space, Open Approach, Diagnostic (ICD-10-PCS; principal; 2016-11-07 00:09)
PROC: 009U30Z Drainage of Spinal Canal with Drainage Device, Percutaneous Approach (ICD-10-PCS; 2016-11-09)
PROC: 0JD70ZZ Extraction of Back Subcutaneous Tissue and Fascia, Open Approach (ICD-10-PCS; 2016-11-13)
PROC: 00UT0JZ Supplement Spinal Meninges with Synthetic Substitute, Open Approach (ICD-10-PCS; 2016-11-13)
PROC: 009U30Z Drainage of Spinal Canal with Drainage Device, Percutaneous Approach (ICD-10-PCS; 2016-11-13)
PROC: 0JD70ZZ Extraction of Back Subcutaneous Tissue and Fascia, Open Approach (ICD-10-PCS; 2016-11-26)
PROC: 009U30Z Drainage of Spinal Canal with Drainage Device, Percutaneous Approach (ICD-10-PCS; 2016-11-26)
DX: T81.4XXA Infection following a procedure, initial encounter (principal); G93.41 Metabolic encephalopathy; J96.00 Acute respiratory failure, unspecified whether with hypoxia or hypercapnia; A41.01 Sepsis due to Methicillin susceptible Staphylococcus aureus; G93.6 Cerebral edema; G06.1 Intraspinal abscess and granuloma; J90 Pleural effusion, not elsewhere classified; G04.81 Other encephalitis and encephalomyelitis; C79.51 Secondary malignant neoplasm of bone; N17.9 Acute kidney failure, unspecified; T81.31XA Disruption of external operation (surgical) wound, not elsewhere classified, initial encounter; E44.0 Moderate protein-calorie malnutrition; G96.0 Cerebrospinal fluid leak; G97.41 Accidental puncture or laceration of dura during a procedure; T85.618A Breakdown (mechanical) of other specified internal prosthetic devices, implants and grafts, initial encounter; E87.1 Hypo-osmolality and hyponatremia; E77.8 Other disorders of glycoprotein metabolism; E83.42 Hypomagnesemia; E86.0 Dehydration; G89.29 Other chronic pain; M54.5 Low back pain; I10 Essential (primary) hypertension; E87.6 Hypokalemia; N31.9 Neuromuscular dysfunction of bladder, unspecified; R33.8 Other retention of urine; E83.39 Other disorders of phosphorus metabolism; D64.9 Anemia, unspecified; M48.02 Spinal stenosis, cervical region; Z85.42 Personal history of malignant neoplasm of other parts of uterus; Z88.0 Allergy status to penicillin; Z92.21 Personal history of antineoplastic chemotherapy; Z92.3 Personal history of irradiation; Z98.1 Arthrodesis status
CPT/HCPCS: 63741; 70450; 70551; 71010; 72020; 72132; 72156; 72157; 72158; 74176; 76000; 76937; 77003; 80048; 80053; 80202; 81001; 82140; 82652; 82728; 82805; 82945; 82948; 83540; 83550; 83605; 83690; 83735; 84100; 84132; 84134; 84157; 84402; 84403; 84484; 85007; 85014; 85018; 85025; 85027; 85044; 85610; 85730; 86140; 86403; 86850; 86900; 86901; 87015; 87040; 87070; 87077; 87102; 87116; 87147; 87186; 87205; 87206; 87641; 89051; 93005; 93306; 94002; 94003; 94150; 94640; 94664; 95819; 96374; 96375; A9577; A9579; C1755; C9113; J0131; J0690; J0692; J0713; J1170; J1580; J1815; J1940; J2270; J2370; J2405; J2710; J3010; J3370; J3475; J3480; J7030; J7040; J7050; P9612; Q9963; Q9967

== ENCOUNTER → 2016-12-16 | Outpatient (CLI) | payer MEDICARE, BC ==
[~2016-12-16] VITALS: Ht 160 cm; Wt 64.5 kg
[~2016-12-16] MED LIST changes: +ACET120S PO; +ACET325T PO; +AMLO10 PO; +AMLO5 NG; +BISA10R RECTAL; +CEFA2SOL IV; +COLA100C3 PO; +COMMODE 3-IN-11 MIS; +DO NOT ADM ANY ANTICOAGULANT DRUGS PRN; +DULC10SU3 RECTAL; -FURO1TAB62 PO; +GETGO ROLLING W1 MI1; +HEPA100I8 IV; -IBUP200T2 PO; +IOHEXOL 350 MG/ML 10 ML VIAL (for RAD DIAG) IV ONE; +IPRASOL NEB; +K-PHTAB PO; +LACT PO; +LEVO750T33 PO; +MEGE40S PO; +METO-309 NG; +METO10TA PO; +METO25TA3 PO; +METO5SOL NG; +MILKSUS PO; +NU-IRON PO; +ONDANSETRON HCL 4 MG/2 ML VIAL IV PUSH ONE; +PANT40P IV PUSH; +PANT40TA3 PO; +POLY17S PO; -POTA-243 PO; +PROPOFOL 200 MG/20 ML AMP IV ONE; +PROT40TA PO; +REGL10TA5 PO; +RISP0.252 PO; +SCOP1PAT2 T-DERMAL; +WHEEMIS3; +shower chair
[2016-12-16 13:00] VITALS: BP 142/67; PULSE 103; RESP 16; TEMP 97.8; O2SAT 94
[2016-12-16 17:15] VITALS: BP 136/65; PULSE 105; RESP 14; TEMP 98; O2SAT 98
--- NOTE | 2016-12-16 17:37 | HHI.GIFU ---
Subjective Remarks Immediate postop note: EGD with biopsy Indication: nausea Meds: GET Findings: Esophagus has free reflux and inflammation, but no geoff seen. Biopsies taken. Stomach: full of bilious liquid. suctioned clear. No ulcerations or erosions. Pylorus widely patent Duodenum: normal. moderate bilious liquid aspirated. At conclusion of procedure NG tube was placed to provide intestinal decompression. Impression: possible partial small bowel obstruction vs ileus. Esophagitis possibly due to same with reflux. Rec: NG suction low intermittent. CT abdomen and pelvis to evaluate for possible SBO. IV and PO contrast if possible. IV fluids. IV protonix 40mg q 12 h Objective Vitals I&O Vital Signs Date Time Temp Pulse Resp B/P Pulse Ox O2 Delivery O2 Flow Rate FiO2 12/16/16 13:00 97.8 103 16 142/67 94 I/O 12/15/16 12/15/16 12/15/16 12/16/16 12/16/16 12/16/16 07:00 15:00 23:00 07:00 15:00 23:00 Intake Total 300 ml Balance 300 ml Other 300 ml Physical Exam HEENT: Pupils round and reactive to light; normocephalic; atraumatic; no jaundice. Throat is clear. NECK: Neck is supple, no JVD, no lymphadenopathy. CHEST: Chest is clear to auscultation and percussion. CARDIAC: Regular rate and rhythm with no murmur gallop or rubs. ABDOMEN: Soft, nondistended, nontender EXTREMITIES: No clubbing, cyanosis, or edema. SKIN: Normal; no rash; no jaundice. CAR SHAKEOUT OPERATOR: No focal deficits; alert and oriented times three. Assessment and Plan Plan Impression and REcommendations: See above. Fredrick Wyman MD December 16, 2016 17:37
--- NOTE | 2016-12-18 09:30 | MR ---
cc: FREDRICK WYMAN. DATE: 12/16/2016 TYPE OF PROCEDURE Esophagogastroduodenoscopy with biopsy. INDICATION FOR PROCEDURE Nausea. PROCEDURE After informed consent was obtained the patient was taken to the operating room. She was given general endotracheal anesthesia. After adequate sedation was achieved the Pentax video gastroscope was inserted in the oropharynx and advanced down through the esophagus into the stomach. There was a great deal of bilious liquid in the stomach. This was all suctioned clear. The scope was advanced down through the stomach into the duodenum. There was also copious bilious liquid there and this was aspirated. The scope was then withdrawn examining the mucosal surfaces carefully. A retroflex exam was performed in the fundus and cardia. The scope was then straightened and pulled through the distal esophagus and biopsies were obtained there for esophagitis. The scope was then withdrawn out the mouth and the procedure was terminated. At the end of the procedure a nasogastric tube was advanced down into the esophagus and then into the stomach by the nurse athletic director to provide for NG suction. The position was confirmed by advancing the scope down for visualization. The procedure was then terminated and she was returned to the post-anesthesia care unit in good condition. FINDINGS 1. Esophagus: The esophagus has free reflux and inflammation but no Roxanna seen, no erosions seen. Biopsies were taken from the distal esophagus. 2. Stomach: The stomach was full of bilious liquid. This was suctioned clear. There were no ulcerations or erosions and no tumors. The pylorus was widely patent. 3. Duodenum: The duodenum showed no abnormalities. There was moderate bilious liquid aspirated from the duodenum as well. 4. At the conclusion of the procedure an NG tube was placed to provide intestinal decompression. IMPRESSION 1. Possible partial small bowel obstruction versus ileus. 2. Esophagitis, probably due to the same with ongoing reflux. RECOMMENDATIONS 1. NG suction should be performed tonight with low intermittent suction. 2. CT abdomen and pelvis to evaluate for possible small bowel obstruction incomplete. IV and p.o. contrast would be preferable if possible. 3. IV fluids should be given including IV Protonix 40 mg q.12h. 4. She may have ice chips to chew and swallow for comfort. Fredrick Wyman MD [facility]/BT /5:44 PM /9:10 AM
== END ==
LOC: HEND 13:22
PROVIDERS: ATTEND Hospitalist
DX: R11.0 Nausea (principal); K21.9 Gastro-esophageal reflux disease without esophagitis; K22.10 Ulcer of esophagus without bleeding
CPT/HCPCS: 88305; 88312; J2405; Q9967

== ENCOUNTER 2016-12-21 09:30 | Inpatient (IN) | payer MEDICARE, BC ==
[~2016-12-21 09:30] MED LIST changes: -ACET120S PO; -AMLO5 NG; -BISA10R RECTAL; -DO NOT ADM ANY ANTICOAGULANT DRUGS PRN; -IOHEXOL 350 MG/ML 10 ML VIAL (for RAD DIAG) IV ONE; -LACT PO; -METO-309 NG; -METO10TA PO; -METO5SOL NG; -ONDANSETRON HCL 4 MG/2 ML VIAL IV PUSH ONE; -PANT40P IV PUSH; -POLY17S PO; -PROPOFOL 200 MG/20 ML AMP IV ONE; -PROT40TA PO
[2016-12-21] MEDS ORDERED: BISA10R RECTAL (11:25)
[2016-12-21] MEDS ORDERED: METO-309 NG (11:25)
[2016-12-21] MEDS ORDERED: AMLO5 NG (11:25)
[2016-12-21] MEDS ORDERED: PANT40P IV PUSH (11:25)
[2016-12-21] MEDS ORDERED: METO5SOL NG (11:25)
[2016-12-21] MEDS ORDERED: ACET120S PO (11:25)
[2016-12-21] MEDS ORDERED: CEFA2SOL IV (11:25)
--- NOTE | 2016-12-21 14:59 | HHI.GIFU ---
Subjective Remarks Pt resting comfortably in bed. She denies n/v, says her belly feels better. Per RN she had multiple hard stools yesterday after enemas and this morning had a formed stool. Objective Physical Exam HEENT: EOMI; normocephalic; atraumatic; no jaundice. CHEST: CTA CARDIAC: RRR ABDOMEN: Soft, nondistended, nontender; no hepatosplenomegaly; bowel sounds are present in all four quadrants. EXTREMITIES: No clubbing, cyanosis, or edema. SKIN: Normal; no rash; no jaundice. BREAD WRAPPER: lethargic. Assessment and Plan Plan ASSESSMENT - ileus - improving. having formed BM after 2 rounds enemas, GoLytely, IV reglan. several months intermittent nausea, heartburn, belching. KUB 12-19-16 - -> decreasing small bowel distention/ileus. CT 12-17-16 small bowel ileus, constipation, moderate ascites. 12-18-16 SBxr --> prolonged small bowel transit time, nonspecific mild to moderate diffuse small bowel distention, indicate ileus, prominent reflux contrast into proximal thoracic esophagus. EGD 12-17-16 --> esophagus has free reflux and infalmmation, but no geoff seen, stomach full of bilious liquid, no ulceruations or erosions, pylorus widely patetnt duodenum, moderate bilious liquid aspirated. - epidural abscess s/p debridement, was d/c to [facility] - IV reglan - bowel regimen - clamp NG and start clears - dietary consult for TPN This pt seen by myself and Dr Hanson and this note is written on his behalf Marilin Lemus MASTER SHEET CLERK December 21, 2016 14:59
[2016-12-21] MEDS ORDERED: BISACODYL 10 MG SUPP RECTAL PRN (15:00)
[2016-12-21] MEDS ORDERED: PANTOPRAZOLE SODIUM 40 MG VIAL IV PUSH SCH (15:00)
[2016-12-21] MEDS ORDERED: NALOXONE HCL 0.4 MG/ML AMP IV PRN (15:00)
[2016-12-21] MEDS ORDERED: SODIUM CHLORIDE 0.9% FLUSH 10 ML FLUSH IV FLUSH PRN (15:00)
[2016-12-21] MEDS ORDERED: ACETAMINOPHEN 325 MG TAB PO PRN (15:00)
[2016-12-21] MEDS ORDERED: MAGNESIUM HYDROXIDE SUSP 30 ML CUP PO PRN (15:00)
[2016-12-21] MEDS ORDERED: RESP: ALBUTEROL 2.5 MG/IPRATROPIUM 0.5 MG NEB (PRN) NEB (15:15)
[2016-12-21] MEDS: PANTOPRAZOLE SODIUM 40 MG VIAL IV PUSH SCH (15:22)
[2016-12-21] MEDS: ENOXAPARIN SODIUM 40 MG/0.4 ML SYRINGE SQ SCH (15:51)
[2016-12-21 16:00] VITALS: BP 140/67; PULSE 86; RESP 17; TEMP 97.7; O2SAT 94
[2016-12-21] MEDS ORDERED: METOCLOPRAMIDE HCL SYRUP 10 MG/10 ML UDC NG SCH (16:00)
[2016-12-21] MEDS: ceFAZolin 2 GM PREMIX 50 ML IV SCH (16:30)
--- NOTE | 2016-12-21 16:46 | PD.CONS ---
HPI History of Present Illness This is a 86 year old female with a hx of endometrial cancer who was diagnosed in 2011. GI has been following her most recently for ileus. Pt resting comfortably in bed. She denies n/v, says her belly feels better. Per RN she had multiple hard stools yesterday after enemas & GoLytely admin and this morning had a formed stool. She underwent underwent robotic assisted laparoscopic vaginal hysterectomy with lymphadenectomy staging by Dr. Marin which revealed stage IIIC poorly differentiated endometrial adenocarcinoma. She was treated with Taxol/ carboplatin chemotherapy and radiation. She was found to have a reoccurrence in 2014 in an isolated biopsy proven lesion to the right shoulder at which time she underwent 6 additional cycles of Taxol and carboplatin chemotherapy which she completed in July 2015. She was later found to have PET CT avid lesion in the right humorous and right side of C7 consistent with recurrent disease. She was most recently getting Doxil chemotherapy was on hold for spinal surgery. She was then admitted on 11/05/16 with sepsis and epidural abscess. She underwent debridement lumbar wound dehiscence, evacuation of lumbar epidural abscess, indirect repair of pre-existing dural tear by Dr. Melissa on . She then underwent debridement and partial closure lumbar wound dehiscence and placement of lumbar epidural drain on 11/26/16. Patient was discharged to [facility] on 12/02/16 with recommendations for 12 weeks of IV Ancef per ID. She is currently at [facility] inpatient [facility] for intensive rehabilitation. She has had intermittent issues with nausea and heartburn for several months. She has taken an unknown antiemetic and TUMS as needed at home. She reports that she will be fine for 3-4 days and then have 3-4 days of nausea and vomiting and that it will eventually resolve and she will have another 3-4 good days. Her appetite has been poor since her hospitalization in October. She states that she started having the nausea and vomiting again on Tuesday, but that it is more severe than usual. She also has frequent belching and heartburn. She has "constant rumblng" in her abdomen but denies any actual abdominal pain. She reports that she is taking colace for her chronic constipation and that this is well controlled. Her symptoms are aggravated by any po intake. (Marilin Lemus) PFSH Past Medical History stage IIIC poorly differentiated endometrial adenocarcinomal dx Aug 2011 chronic back pain psoriasis epidural abscess GERD Past Surgical History Benign ovarian cyst removal Lysis of adhesions Cataract surgery Appendectomy Tonsillectomy Robotic assisted laparoscopic vaginal hysterectomy and staging August [address] directed biopsy of right shoulder pathology revealed metastatic poorly differentiated adenocarcinoma Cervical fusion 1993 L4-L5 laminectomy September 2016 in [place]. (Marilin Lemus) Coded Allergies: Penicillin (Verified Allergy, Severe, Rash, 11/06/16) Rash 2 decades back. Medications Current Medications Medications (Trade) Dose Ordered Sig/[facility] Route PRN Reason Start Time Stop Time Status Last Admin Dose Admin Sodium Chloride (NS Flush) 2 ml UNSCH PRN IV FLUSH FLUSH AFTER USING IV ACCESS 12/21/16 15:00 Sodium Chloride (NS Flush) 2 ml BID IV FLUSH 12/21/16 21:00 Naloxone HCl (Narcan Inj) 0.4 mg UNSCH PRN IV SEE LABEL COMMENTS 12/21/16 15:00 Acetaminophen (Tylenol) 650 mg Q6H PRN PO PAIN 1-3 AND/OR FEVER >101F 12/21/16 15:00 Bisacodyl (Dulcolax Supp) 1 mg DAILY PRN RECTAL CONSTIPATION 12/21/16 15:00 Docusate Sodium (Colace) 100 mg BID PO 12/21/16 21:00 Magnesium Hydroxide (Milk Of Magnesia Liq) 30 ml DAILY PRN PO INDIGESTION OR UPSET STOMACH 12/21/16 15:00 Metoprolol Tartrate (Lopressor) 50 mg Q12HR NG 12/21/16 21:00 Pantoprazole Sodium 40 mg 40 mg Q12H IV PUSH 12/21/16 16:00 12/21/16 15:22 Cefazolin Sodium/ Dextrose (Ancef 2 Gm Premix) 50 ml @ 100 mls/hr Q8H IV 12/21/16 16:00 12/21/16 16:30 Enoxaparin Sodium (Lovenox Inj) 40 mg Q24H SQ 12/21/16 16:00 12/21/16 15:51 Metoclopramide HCl (Reglan Inj) 10 mg Q8HR IV PUSH 12/21/16 22:00 Polyethylene Glycol (Miralax) 17 gm DAILY PO 12/22/16 09:00 Family History Father at age 55 of NE. Brother at age 47 of NE. Another brother at age 62 of cirrhosis Mother in her 80s with history of dementia coronary artery disease and dementia. Daughter has seizures. Social History no tobacco or illicit drugs (Marilin Lemus) Review of Systems Constitutional: DENIES: Fever Eyes: DENIES: Blurred vision Ears, nose, mouth, throat: DENIES: Hearing loss Respiratory: DENIES: Cough Cardiovascular: DENIES: Chest pain Gastrointestinal: COMPLAINS OF: Constipation, Nausea, DENIES: Abdominal pain, Black stools, Bloody stools, Vomiting Genitourinary: DENIES: Hematuria Musculoskeletal: DENIES: Muscle aches Integumentary: DENIES: Abnormal pigmentation Neurologic: DENIES: Abnormal gait (Marilin Lemus) GI Exam Physical Examination HEENT: EOMIL; normocephalic; atraumatic; no jaundice. CHEST: CTA CARDIAC: RRR ABDOMEN: Soft, nondistended, nontender; no hepatosplenomegaly; bowel sounds are present in all four quadrants. EXTREMITIES: No clubbing, cyanosis, or edema. SKIN: Normal; no rash; no jaundice. PET GROOMER: lethargic (Marilin Lemus) Assessment and Plan Plan ASSESSMENT - ileus - improving. having formed BM after 2 rounds enemas, GoLytely, IV reglan. several months intermittent nausea, heartburn, belching. KUB 12-19-16 - -> decreasing small bowel distention/ileus. CT 12-17-16 small bowel ileus, constipation, moderate ascites. 12-18-16 SBxr --> prolonged small bowel transit time, nonspecific mild to moderate diffuse small bowel distention, indicate ileus, prominent reflux contrast into proximal thoracic esophagus. EGD 12-17-16 --> esophagus has free reflux and infalmmation, but no geoff seen, stomach full of bilious liquid, no ulceruations or erosions, pylorus widely patetnt duodenum, moderate bilious liquid aspirated. She has been on TBN - epidural abscess s/p debridement, was d/c to [facility] - metastatic endometrial ca dx 2011 s/p robotic assisted vaginal hysterectomy and staging, chemo PLAN - IV reglan - bowel regimen - clamp NG and start clears - dietary consult for TPN This pt seen by myself and Dr Hanson and this note is written on his behalf ( Marilin Lemus) Physician Comments Patient seen and examined Agree with above Continue with current supportive care Monitor labs Patient was seen previously and again now for ileus constipation and fecal impaction but this all appears to be resolving at this point with good bowel movements after several enemas and a GoLYTELY prep We'll continue to follow (Mich Hanson MD) Marilin Lemus December 21, 2016 16:46 Mich Hanson MD December 21, 2016 19:56
[2016-12-21 20:00] VITALS: BP 142/65; PULSE 89; RESP 20; TEMP 97.9; O2SAT 94
[2016-12-21] MEDS: METOPROLOL TARTRATE 50 MG TAB NG SCH (20:13)
[2016-12-21] MEDS: SODIUM CHLORIDE 0.9% FLUSH 10 ML FLUSH IV FLUSH SCH (20:13)
[2016-12-21] MEDS: METOCLOPRAMIDE HCL 10 MG/2 ML VIAL IV PUSH SCH (20:13)
[2016-12-21] MEDS: DOCUSATE SODIUM 100 MG CAP PO SCH (20:13)
[2016-12-21] MEDS: FAT EMULSION 20% INJ 250 ML (@10 mls/hr) IV SCH (22:34)
[2016-12-21] MEDS: CLINIMIX E 4.25/5 2000 mL- >42 mls/hr IV SCH ×3 (22:34)
[2016-12-22] VITALS: BP 123/60; PULSE 92; RESP 20; TEMP 97.6; O2SAT 94
[2016-12-22] MEDS: ceFAZolin 2 GM PREMIX 50 ML IV SCH ×4 (00:48→23:48)
[2016-12-22] MEDS: METOCLOPRAMIDE HCL 10 MG/2 ML VIAL IV PUSH SCH ×3 (05:05→21:37)
[2016-12-22] MEDS: PANTOPRAZOLE SODIUM 40 MG VIAL IV PUSH SCH ×2 (05:06→14:22)
[2016-12-22 05:23] LABS: AUTOMATED NEUTROPHIL # 4.7 TH/MM3 (1.8-7.7); BASOPHIL % 0.4 % (0.0-2.0); EOSINOPHIL # 0.2 TH/MM3 (0-0.4); EOSINOPHIL % 2.8 % (0.0-4.0); HEMATOCRIT 26.8 % (35.0-46.0); LYMPH % 6.6 % (9.0-44.0); LYMPHOCYTE # 0.4 TH/MM3 (1.0-4.8); MEAN CELL VOLUME 93.3 FL (80.0-100.0); MEAN CORPUSCULAR HGB CONC 33.3 % (32.0-36.0); MONO % 13.4 % (0.0-8.0); NEUT % 76.8 % (16.0-70.0); PLATELET COUNT 185 TH/MM3 (150-450); RED BLOOD COUNT 2.87 MIL/MM3 (4.00-5.30); RED CELL DISTRIBUTION WIDTH 15.8 % (11.6-17.2); WHITE BLOOD COUNT 6.1 TH/MM3 (4.0-11.0)
[2016-12-22 05:24] LABS: HEMO FLAGS AUTO DIFF
[2016-12-22 05:48] LABS: ANION GAP 10 MEQ/L (5-15); AST (GOT) 28 U/L (15-37); BICARBONATE 22.8 MEQ/L (21.0-32.0); BLOOD UREA NITROGEN 21 MG/DL (7-18); CHLORIDE 105 MEQ/L (98-107); GLOMERULAR FILTRATION RATE 204 ML/MIN (>89); MAGNESIUM 1.7 MG/DL (1.5-2.5); POTASSIUM 4.2 MEQ/L (3.5-5.1); SODIUM (NA) 138 MEQ/L (136-145)
[2016-12-22 05:52] LABS: ALKALINE PHOSPHATASE 73 U/L (45-117); ALT (GPT) 7 U/L (10-53); TOTAL BILIRUBIN ADULT 0.4 MG/DL (0.2-1.0)
[2016-12-22 08:00] VITALS: BP 132/61; PULSE 87; RESP 16; TEMP 98.1; O2SAT 95
[2016-12-22 08:30] LABS: BANDS 2 % (0-6); EOSINOPHILS 2 % (0-4); METAMYELOCYTES 1 % (0-1); MYELOCYTES 2 % (0-0); NEUTROPHIL # MANUAL DIFF 4.6 TH/MM3 (1.8-7.7); POLYS (SEG NEUTROPHILS) 71 % (16-70); WBC DIFF SAMPLE 100
[2016-12-22 08:31] LABS: PLATELET ESTIMATE SMEAR NORMAL (NORMAL); PLATELET MORPHOLOGY NORMAL (NORMAL); SCAN/DIFF FINAL DIFF MANUAL
[2016-12-22] MEDS: DOCUSATE SODIUM 100 MG CAP PO SCH ×2 (08:39→19:54)
[2016-12-22] MEDS: METOPROLOL TARTRATE 50 MG TAB NG SCH ×2 (08:39→19:54)
[2016-12-22] MEDS: POLYETHYLENE GLYCOL 17 GM PKG PO SCH (08:39)
[2016-12-22] MEDS: SODIUM CHLORIDE 0.9% FLUSH 10 ML FLUSH IV FLUSH SCH ×2 (08:40→19:54)
--- NOTE | 2016-12-22 11:14 | HHI.HP ---
History of Present Illness Service Family Primary Care Physician Nestor Kendrick, DO Admission Diagnosis Nausea Ileus Diagnoses: (1) Ileus (2) HTN (hypertension) (3) Ascites (4) Dural tear (5) Nausea & vomiting History of Present Illness 86 Year old female with pmhx of metastatic endometrial cancer diagnosed 5 years ago. Last PET scan per documentation showed bony metastasis to skull and rue. He was in her usual state of health that consisted of free ambulation and independence with ADLs until 11/27/16 until about 2 weeks ago when she had a L4- L5 laminectomy at [facility]. She presented to to [facility] on 11/05/16 with nausea, vomiting, low back pain, chills. She was found to have leukocytosis, sepsis, metaboloic encephalopathy. Developed urinary retention and baird was placed. She was transferred to ICU. Developed respiratory failure requiring intubation. eventually extubated .CT spine showed fluid L4 fluid collection. Dr. Melissa - neurosurgery was consulted. MRI spine revealed - Fusion C6-C7, Severe canal stenosis with cord compression C5-C6, T2 suspicious for metastatic disease, Fluid collection at L4 3.4x3.1x3.9. MRI brain showed abnormal signal occipital horns. no acute infarct. Dr. Nina ID was consulted for epidural abcess and treated initially with ceftazidime, flagyl iv, and IV vancomycin. Lumbar drain placed in IR drained 8 cc bloody, cloudy drainage. The patient was taken to the OR twice. On 11/12/16 she had a debridement and sub arachnoid drain. On 11/26/16 she s/p debridement, partial closure of lumbar wound, and lumbar drain placement for epidural abscess and dural tear with CSF leak. Blood cultures 11/07/16 negative x 5 days, CSF culture negative, L4-L5 Culture negative. Dr. Nina changed to antibiotics to Ancef IV for 8-12 weeks from last surgery date (11/26/16). Dr. Hlae GI was consulted and signed off. Echo was done that showed ef 60-65%. Patient then went to [place] [facility] for therapy. During her course she developed nausea, vomiting, and adominal discomfort. GI was consulted. CT 12-17-16 small bowel ileus, constipation, moderate ascites. EGD 12-17-16 --> esophagus has free reflux and infalmmation, but no geoff seen, stomach full of bilious liquid, no ulcerations or erosions, pylorus widely patent duodenum, moderate bilious liquid aspirated. 12-18-16 SBxr --> prolonged small bowel transit time, nonspecific mild to moderate diffuse small bowel distention, indicate ileus, prominent reflux contrast into proximal thoracic esophagus. KUB 12-19-16 --> decreasing small bowel distention/ileus. Patient transferred to acute hospitalization for further evaluation and that patient is unable to participate in PT. - Review of Systems Constitutional: COMPLAINS OF: Fatigue, Change in appetite, DENIES: Dizziness Gastrointestinal: COMPLAINS OF: Constipation, Nausea, Vomiting Musculoskeletal: COMPLAINS OF: Muscle aches, Stiffness Psychiatric: COMPLAINS OF: Anxiety, Confusion Past Family Social History Allergies: Coded Allergies: Penicillin (Verified Allergy, Severe, Rash, 11/06/16) Rash 2 decades back. 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 Active Ordered Medications Current Medications Medications (Trade) Dose Ordered Sig/Aleja Route Start Time Stop Time Status Last Admin (NS Flush) 2 ml UNSCH PRN IV FLUSH 12/21/16 15:00 (NS Flush) 2 ml BID IV FLUSH 12/21/16 21:00 12/21/16 20:13 (Narcan Inj) 0.4 mg UNSCH PRN IV 12/21/16 15:00 (Tylenol) 650 mg Q6H PRN PO 12/21/16 15:00 (Dulcolax Supp) 1 mg DAILY PRN RECTAL 12/21/16 15:00 (Colace) 100 mg BID PO 12/21/16 21:00 12/22/16 08:39 (Milk Of Magnesia Liq) 30 ml DAILY PRN PO 12/21/16 15:00 (Lopressor) 50 mg Q12HR NG 12/21/16 21:00 12/22/16 08:39 Pantoprazole Sodium 40 mg 40 mg Q12H IV PUSH 12/21/16 16:00 12/22/16 05:06 (Ancef 2 Gm Premix) 50 ml @ 100 mls/hr Q8H IV 12/21/16 16:00 12/22/16 08:40 (Lovenox Inj) 40 mg Q24H SQ 12/21/16 16:00 12/21/16 15:51 (Reglan Inj) 10 mg Q8HR IV PUSH 12/21/16 22:00 12/22/16 05:05 Polyethylene Glycol 17 gm 17 gm DAILY PO 12/22/16 09:00 12/22/16 08:39 Multivitamins 10 ml/Folic Acid 1 mg/Amino Acids/ Electrolytes/ Dextrose 2,010.2 ml @ 83 mls/hr Q24H IV 12/21/16 20:00 12/21/16 22:34 (Liposyn Iii 20% Inj) 250 ml @ 10 mls/hr Q24H IV 12/21/16 20:00 12/21/16 22:34 Family History Family History Father with heart disease Mother hx of diabetes Social History Social History Denies smoking or ETOH use. 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 Cool and dry. NECK: Trachea midline. Supple, nontender, no meningeal signs. CARDIOVASCULAR: Regular rate and rhythm without murmurs, gallops, or rubs. RESPIRATORY: Clear to auscultation. Breath sounds equal bilaterally. No wheezes , rales, or rhonchi. GASTROINTESTINAL: Abdomen soft, non-tender, nondistended. No hepato-splenomegaly , or palpable masses. No guarding. MUSCULOSKELETAL: Extremities without clubbing, cyanosis, or edema. No joint tenderness, effusion, or edema noted. No calf tenderness. Negative Homans sign bilaterally. NEUROLOGICAL: Awake and alert. Normal speech. Laboratory Laboratory Tests Test 12/22/16 04:00 White Blood Count 6.1 Red Blood Count 2.87 Hemoglobin 8.9 Hematocrit 26.8 Mean Corpuscular Volume 93.3 Mean Corpuscular Hemoglobin 31.0 Mean Corpuscular Hemoglobin 33.3 Concent Red Cell Distribution Width 15.8 Platelet Count 185 Mean Platelet Volume 8.5 Neutrophils (%) (Auto) 76.8 Lymphocytes (%) (Auto) 6.6 Monocytes (%) (Auto) 13.4 Eosinophils (%) (Auto) 2.8 Basophils (%) (Auto) 0.4 Neutrophils # (Auto) 4.7 Lymphocytes # (Auto) 0.4 Monocytes # (Auto) 0.8 Eosinophils # (Auto) 0.2 Basophils # (Auto) 0.0 CBC Comment AUTO DIFF Differential Total Cells 100 Counted Neutrophils % (Manual) 71 Band Neutrophils % 2 Lymphocytes % 11 Monocytes % 11 Eosinophils % 2 Neutrophils # (Manual) 4.6 Metamyelocytes 1 Myelocytes 2 Differential Comment FINAL DIFF MANUAL Platelet Estimate NORMAL Platelet Morphology Comment NORMAL Sodium Level 138 Potassium Level 4.2 Chloride Level 105 Carbon Dioxide Level 22.8 Anion Gap 10 Blood Urea Nitrogen 21 Creatinine 0.31 Estimat Glomerular Filtration 204 Rate Random Glucose 118 Calcium Level 8.7 Magnesium Level 1.7 Total Bilirubin 0.4 Aspartate Amino Transf 28 (AST/SGOT) Alanine Aminotransferase 7 (ALT/SGPT) Alkaline Phosphatase 73 Total Protein 5.3 Albumin 2.1 Result Diagram: 12/22/1639912/22/16399 Assessment and Plan Problem List: (1) Ileus Status: Acute Plan: GI consulted and managing. On IV reglan, NG clamped and started on clears. Dietary consult for TPN Patient was seen previously and again now for ileus constipation and fecal impaction but this all appears to be resolving at this point with good bowel movements after several enemas and a GoLYTELY prep (2) Ascites Status: Acute (3) HTN (hypertension) Status: Chronic Plan: Continue current treatment well controlled (4) Nausea & vomiting Status: Acute Plan: Improving. NG tube clamped today. On reglan ATC (5) Poor appetite Status: Acute Plan: Clear liquids started. On TPN with Dietary consult (6) Dural tear Status: Acute Plan: Healing well. Site free on redness or drainage. On antibiotics per ID. Dr. Melissa consulted to follow along (7) Debility Status: Acute Plan: PT ordered daily Assessment and Plan Assessment and plan discussed with Dr. Kendrick Discussed Condition With Nursing Physician Attestation I and the MANAGER DELIVERY have both examined this patient and reviewed this note and I agree with these findings and plan of care. Nestor Kendrick. Dayanara Barbour December 22, 2016 11:14
[2016-12-22 12:00] VITALS: BP 135/65; PULSE 85; RESP 17; TEMP 97.9; O2SAT 95
[2016-12-22] MEDS: ENOXAPARIN SODIUM 40 MG/0.4 ML SYRINGE SQ SCH (14:23)
--- NOTE | 2016-12-22 14:24 | HHI.GIFU ---
Subjective Remarks Patient is resting in bed, tolerating clears okay, she is having a couple of soft stools, no nausea or vomiting, no abd pain. (Kiran Espino) Objective Vitals I&O Vital Signs Date Time Temp Pulse Resp B/P Pulse Ox O2 Delivery O2 Flow Rate FiO2 12/22/16 12:00 97.9 85 17 135/65 95 12/22/16 08:00 98.1 87 16 132/61 95 12/22/16 00:00 97.6 92 20 123/60 94 12/21/16 20:00 97.9 89 20 142/65 94 12/21/16 16:00 97.7 86 17 140/67 94 I/O 12/21/16 12/21/16 12/21/16 12/22/16 12/22/16 12/22/16 07:00 15:00 23:00 07:00 15:00 23:00 Intake Total 0 ml 675 ml Balance 0 ml 675 ml Intake Oral 0 ml 60 ml TPN/PPN 550 ml Lipid 65 ml # Voids 3 4 # Bowel Movements 3 2 Laboratory Laboratory Tests Test 12/22/16 04:00 White Blood Count 6.1 Red Blood Count 2.87 Hemoglobin 8.9 Hematocrit 26.8 Mean Corpuscular Volume 93.3 Mean Corpuscular Hemoglobin 31.0 Mean Corpuscular Hemoglobin 33.3 Concent Red Cell Distribution Width 15.8 Platelet Count 185 Mean Platelet Volume 8.5 Neutrophils (%) (Auto) 76.8 Lymphocytes (%) (Auto) 6.6 Monocytes (%) (Auto) 13.4 Eosinophils (%) (Auto) 2.8 Basophils (%) (Auto) 0.4 Neutrophils # (Auto) 4.7 Lymphocytes # (Auto) 0.4 Monocytes # (Auto) 0.8 Eosinophils # (Auto) 0.2 Basophils # (Auto) 0.0 CBC Comment AUTO DIFF Differential Total Cells 100 Counted Neutrophils % (Manual) 71 Band Neutrophils % 2 Lymphocytes % 11 Monocytes % 11 Eosinophils % 2 Neutrophils # (Manual) 4.6 Metamyelocytes 1 Myelocytes 2 Differential Comment FINAL DIFF MANUAL Platelet Estimate NORMAL Platelet Morphology Comment NORMAL Sodium Level 138 Potassium Level 4.2 Chloride Level 105 Carbon Dioxide Level 22.8 Anion Gap 10 Blood Urea Nitrogen 21 Creatinine 0.31 Estimat Glomerular Filtration 204 Rate Random Glucose 118 Calcium Level 8.7 Magnesium Level 1.7 Total Bilirubin 0.4 Aspartate Amino Transf 28 (AST/SGOT) Alanine Aminotransferase 7 (ALT/SGPT) Alkaline Phosphatase 73 Total Protein 5.3 Albumin 2.1 Physical Exam HEENT: EOMI; normocephalic; atraumatic; no jaundice. CHEST: CTA CARDIAC: RRR ABDOMEN: Soft, nondistended, nontender; no hepatosplenomegaly; bowel sounds are present in all four quadrants. EXTREMITIES: No clubbing, cyanosis, or edema. SKIN: Normal; no rash; no jaundice. WELFARE INVESTIGATOR: lethargic. (Kiran Espino) Assessment and Plan Plan ASSESSMENT - ileus - improving. having formed BM after 2 rounds enemas, GoLytely, IV reglan. She is having multiple soft stools, tolerating clears okay several months intermittent nausea, heartburn, belching. KUB 12-19-16 --> decreasing small bowel distention/ileus. CT 12-17-16 small bowel ileus, constipation, moderate ascites. 12-18-16 SBxr -- > prolonged small bowel transit time, nonspecific mild to moderate diffuse small bowel distention, indicate ileus, prominent reflux contrast into proximal thoracic esophagus. EGD 12-17-16 --> esophagus has free reflux and inflammation, but no geoff seen, stomach full of bilious liquid, no ulcerations or erosions, pylorus widely patent duodenum, moderate bilious liquid aspirated. She has been on TPN - epidural abscess s/p debridement, was d/c to [facility] - metastatic endometrial ca dx 2011 s/p robotic assisted vaginal hysterectomy and staging, chemo PLAN - Clear liquids - KUB - IV reglan - Cont. bowel regimen -NGT clamped - Cont. TPN This pt seen by myself and Dr Hanson and this note is written on his behalf ( Kiran Espino) Physician Comments Patient seen and examined Agree with above Continue with current supportive care Monitor labs (Mich Hanson MD) Kiran Espino December 22, 2016 14:24 Mich Hanson MD December 22, 2016 21:09
--- NOTE | 2016-12-22 15:13 | RADRPT ---
EXAM DATE/TIME: 12/22/2016 14:59 [facility] COMPARISON: ABDOMEN KUB ONLY, December 19, 2016, 15:14. INDICATIONS : Obstruction. MEDICAL HISTORY : None. SURGICAL HISTORY : None. ENCOUNTER: Initial ACUITY: 3 days PAIN SCORE: 10/10 LOCATION: Bilateral abdomen. FINDINGS: There are gas-filled loops of mildly distended small bowel. Contrast is noted within the large bowel and decreased in amount since the previous study. NG tube is present within the stomach. Degenerative changes of the spine are seen. CONCLUSION: Decrease in amount of contrast within the bowel since the previous study. Jesús Anderson MD on December 22, 2016 at 15:11 Board Certified Radiologist. This report was verified electronically.
[2016-12-22 16:00] VITALS: BP 121/66; PULSE 86; RESP 17; TEMP 97.8; O2SAT 96
--- NOTE | 2016-12-22 18:40 | PD.ID.CON ---
History of Present Illness Service ID Consult Requested By Reason for Consult Evaluation and Mment of Epidural abscess/discitis Primary Care Physician Nestor Kendrick, DO Diagnoses: History of Present Illness is an 86 y/o CF with PMHx of metastatic endometrial cancer diagnosed 5 years ago with mets to bone and spine. Patient underwent a planned laminectomy at [facility] in [place]. She presented to to [facility] on 11/05/16 with nausea, vomiting, low back pain, chills. She was found to have leukocytosis, sepsis, metabolic encephalopathy. Developed urinary retention and baird was placed. She was transferred to ICU and [facility] and ID along with have been following. She developed respiratory failure requiring intubation. eventually extubated 11/17/16. CT spine showed fluid L4 fluid collection. Dr. Melissa - neurosurgery was consulted. MRI spine revealed - Fusion C6-C7, Severe canal stenosis with cord compression C5-C6, T2 suspicious for metastatic disease, Fluid collection at L4 3.4x3.1x3.9. Lumbar drain placed in IR 11/09/16 drained 8 cc bloody, cloudy drainage which grew MSSA. The patient was taken to the OR twice. On 11/12/16 she had a debridement and sub arachnoid drain. On 11/26/16 she s/p debridement, partial closure of lumbar wound, and lumbar drain placement for epidural abscess and dural tear with CSF leak. Blood cultures 11/07/16 negative x 5 days, CSF culture negative, L4-L5 Culture negative. Echo was done that showed ef 60-65% with no vegetations. During her course in [facility] she developed nausea, vomiting, and abdominal discomfort. GI was consulted. CT 12-17-16 small bowel ileus, constipation, moderate ascites. EGD 12-17-16 --> esophagus has free reflux and inflammation, but no geoff seen, stomach full of bilious liquid, no ulcerations or erosions , pylorus widely patent duodenum, moderate bilious liquid aspirated. 12-18-16 SBxr --> prolonged small bowel transit time, nonspecific mild to moderate diffuse small bowel distention, indicate ileus, prominent reflux contrast into proximal thoracic esophagus. KUB 12-19-16 --> decreasing small bowel distention/ ileus. Patient transferred to acute hospitalization for further evaluation and that patient is unable to participate in PT. ID following for MSSA epidural abscess. I d.w about plan for drain. He will review imaging and d/w IR and get back to us. Review of Systems ROS Limitations: Poor Historian Except as stated in HPI: all other systems reviewed are Neg Past Family Social History Allergies: Coded Allergies: Penicillin (Verified Allergy, Severe, Rash, 11/06/16) Rash 2 decades back. Past Medical History GB infection Epidural abscess Discitis Urinary retention HTN Post op CSF leak Past Surgical History Endometrial cancer s.p surgery Cervical spine surgery unsure of hardware Laminectomy lumbar 11/05/2016. On 11/12/16 she had a debridement and sub arachnoid drain. On 11/26/16 she s/p debridement, partial closure of lumbar wound, and lumbar drain placement for epidural abscess and dural tear with CSF leak. Reported Medications Reported Meds & Active Scripts Active Tylenol-Codeine Elixir (Acetaminophen-Codeine Liq) 120-12 Mg/5 Ml Soln 5 Ml PO Q6H PRN 30 Days Protonix Inj (Pantoprazole Sodium) 40 Mg Inj 40 Mg IV PUSH Q12H 30 Days Lopressor (Metoprolol Tartrate) 50 Mg Tab 50 Mg NG Q12HR 30 Days Metoclopramide Liq (Metoclopramide HCl) 5 Mg/5 Ml Liq 10 Mg NG ACHS 30 Days Bisac-Evac Supp (Bisacodyl) 10 Mg Supp 10 Mg RECTAL DAILY 5 Days Norvasc (Amlodipine Besylate) 5 Mg Tab 5 Mg NG DAILY@12 Poly-Iron 150 (Polysaccharide Iron Complex) 150 Mg Cap 150 Mg PO Q12HR Duoneb (Ipratropium-Albuterol Neb) 0.5-2.5 Mg/3 Ml Neb 1 Ampule NEB Q2HR NEB PRN Acetaminophen 325 Mg Tab 650 Mg PO Q6H PRN Reported Dulcolax Supp (Bisacodyl) 10 Mg Supp 1 Mg RECTAL DAILY PRN Milk of Magnesia Liq (Magnesium Hydroxide) 400 Mg/5 Ml Susp 30 Ml PO DAILY PRN Colace (Docusate Sodium) 100 Mg Cap 100 Mg PO BID Megace Liq (Megestrol Acetate) 40 Mg/Ml Susp 400 Mg PO DAILY Risperidone 0.25 Mg Tab 0.25 Mg PO Q12HR Active Ordered Medications Current Medications Medications (Trade) Dose Ordered Sig/Aleja Route Start Time Stop Time Status Last Admin (NS Flush) 2 ml UNSCH PRN IV FLUSH 12/21/16 15:00 (NS Flush) 2 ml BID IV FLUSH 12/21/16 21:00 12/21/16 20:13 (Narcan Inj) 0.4 mg UNSCH PRN IV 12/21/16 15:00 (Tylenol) 650 mg Q6H PRN PO 12/21/16 15:00 (Dulcolax Supp) 1 mg DAILY PRN RECTAL 12/21/16 15:00 (Colace) 100 mg BID PO 12/21/16 21:00 12/22/16 08:39 (Milk Of Magnesia Liq) 30 ml DAILY PRN PO 12/21/16 15:00 (Lopressor) 50 mg Q12HR NG 12/21/16 21:00 12/22/16 08:39 Pantoprazole Sodium 40 mg 40 mg Q12H IV PUSH 12/21/16 16:00 12/22/16 14:22 (Ancef 2 Gm Premix) 50 ml @ 100 mls/hr Q8H IV 12/21/16 16:00 12/22/16 14:22 (Lovenox Inj) 40 mg Q24H SQ 12/21/16 16:00 12/22/16 14:23 (Reglan Inj) 10 mg Q8HR IV PUSH 12/21/16 22:00 12/22/16 14:22 Polyethylene Glycol 17 gm 17 gm DAILY PO 12/22/16 09:00 12/22/16 08:39 Multivitamins 10 ml/Folic Acid 1 mg/Amino Acids/ Electrolytes/ Dextrose 2,010.2 ml @ 83 mls/hr Q24H IV 12/21/16 20:00 12/21/16 22:34 (Liposyn Iii 20% Inj) 250 ml @ 10 mls/hr Q24H IV 12/21/16 20:00 12/21/16 22:34 Family History reviewed and NC to current ID problems. Social History reviewed. Lives at home with . Her has dementia. They live in an apartment on 2nd floor (has an elevator). No smoking. No alcohol. No drugs. Physical Exam Vital Signs Vital Signs Date Time Temp Pulse Resp B/P Pulse Ox O2 Delivery O2 Flow Rate FiO2 12/22/16 16:00 97.8 86 17 121/66 96 12/22/16 12:00 97.9 85 17 135/65 95 12/22/16 08:00 98.1 87 16 132/61 95 12/22/16 00:00 97.6 92 20 123/60 94 12/21/16 20:00 97.9 89 20 142/65 94 Physical Exam GENERAL: Chronically ill appearing, well-developed patient, in no apparent distress. SKIN: No rashes, ecchymoses or lesions. Cool and dry. HEAD: Atraumatic. Normocephalic. No temporal or scalp tenderness. EYES: Pupils equal round and reactive. Extraocular motions intact. No scleral icterus. No injection or drainage. ENT: Nose without bleeding, purulent drainage or septal hematoma. Throat without erythema, tonsillar hypertrophy or exudate. Uvula midline. Airway patent. NECK: Trachea midline. Supple, nontender, no meningeal signs. CARDIOVASCULAR: RRR RESPIRATORY: Clear to auscultation. Breath sounds equal bilaterally. No wheezes , rales, or rhonchi. GASTROINTESTINAL: Abdomen soft, non-tender, nondistended. MUSCULOSKELETAL: Extremities without clubbing, cyanosis, or edema. No joint tenderness, effusion, or edema noted. No calf tenderness. Negative Homans sign bilaterally. NEUROLOGICAL: Awake and alert. Grossly non focal Psych: cooperative IV line sites with no e/o infection. Laboratory Laboratory Tests Test 12/22/16 04:00 White Blood Count 6.1 Red Blood Count 2.87 Hemoglobin 8.9 Hematocrit 26.8 Mean Corpuscular Volume 93.3 Mean Corpuscular Hemoglobin 31.0 Mean Corpuscular Hemoglobin 33.3 Concent Red Cell Distribution Width 15.8 Platelet Count 185 Mean Platelet Volume 8.5 Neutrophils (%) (Auto) 76.8 Lymphocytes (%) (Auto) 6.6 Monocytes (%) (Auto) 13.4 Eosinophils (%) (Auto) 2.8 Basophils (%) (Auto) 0.4 Neutrophils # (Auto) 4.7 Lymphocytes # (Auto) 0.4 Monocytes # (Auto) 0.8 Eosinophils # (Auto) 0.2 Basophils # (Auto) 0.0 CBC Comment AUTO DIFF Differential Total Cells 100 Counted Neutrophils % (Manual) 71 Band Neutrophils % 2 Lymphocytes % 11 Monocytes % 11 Eosinophils % 2 Neutrophils # (Manual) 4.6 Metamyelocytes 1 Myelocytes 2 Differential Comment FINAL DIFF MANUAL Platelet Estimate NORMAL Platelet Morphology Comment NORMAL Sodium Level 138 Potassium Level 4.2 Chloride Level 105 Carbon Dioxide Level 22.8 Anion Gap 10 Blood Urea Nitrogen 21 Creatinine 0.31 Estimat Glomerular Filtration 204 Rate Random Glucose 118 Calcium Level 8.7 Magnesium Level 1.7 Total Bilirubin 0.4 Aspartate Amino Transf 28 (AST/SGOT) Alanine Aminotransferase 7 (ALT/SGPT) Alkaline Phosphatase 73 Total Protein 5.3 Albumin 2.1 Result Diagram: 12/22/16 0400 12/22/16 0400 Imaging Last Impressions Abdomen X-Ray 12/22/16 0000 Signed Impressions: Service Date/Time: Thursday, December 22, 2016 14:59 - CONCLUSION: Decrease in amount of contrast within the bowel since the previous study. Jesús Anderson MD Assessment and Plan Assessment and Plan MSSA Epidural abscess/discitis post op (1st surgery at [facility]) Ileus with constipation Endometrial cancer with mets. Recs: Continue Ancef IV 2 gm q8hrs Ileus resolving now having regular BMs and abdominal symptoms better. GI symptoms not from Ancef. d.w about plan for drain. He will review imaging and d/w IR and get back to us. This will help determine stop date for antibiotics. Nichole Nina MD December 22, 2016 18:40
[2016-12-22] MEDS: FAT EMULSION 20% INJ 250 ML (@10 mls/hr) IV SCH (19:53)
[2016-12-22] MEDS: CLINIMIX E 4.25/5 2000 mL- >42 mls/hr IV SCH ×3 (19:54)
[2016-12-22 20:00] VITALS: BP 136/66; PULSE 85; RESP 20; TEMP 97.9; O2SAT 95
--- NOTE | 2016-12-22 23:11 | PD.CONS ---
History of Present Illness Service Neurosurgery Consult Requested By Medicine service Reason for Consult Postoperative fluid collection lumbar spine Primary Care Physician Nestor Kendrick DO Diagnoses: History of Present Illness Ms. richter is an 86-year-old female with a history of metastatic endometrial cancer. She recently underwent a lumbar laminectomy in [place]. She presented to [facility] on 11/05/16 with wound dehiscence and drainage, mental status changes. She was diagnosed with sepsis and metabolic encephalopathy. She was taken to surgery and found to have a dural tear with abscess at the previous surgery site. Patient underwent initial debridement of the wound site followed by lumbar drain placement with subsequent further debridement and indirect closure of the dural tear. Lumbar subarachnoid drain continued for approximately 2 weeks after the final debridement with eventual good healing at the wound site. She is now readmitted due to nausea and vomiting with imaging studies revealing moderate diffuse small bowel distention. A repeat lumbar spine imaging study has revealed persistent fluid collection at the prior operative site. Patient has no complaint of significant lower extremity pain weakness or numbness. Past Family Social History Allergies: Coded Allergies: Penicillin (Verified Allergy, Severe, Rash, 11/06/16) Rash 2 decades back. Physical Exam Vital Signs Vital Signs Date Time Temp Pulse Resp B/P Pulse Ox O2 Delivery O2 Flow Rate FiO2 12/22/16 20:00 97.9 85 20 136/66 95 12/22/16 16:00 97.8 86 17 121/66 96 12/22/16 12:00 97.9 85 17 135/65 95 12/22/16 08:00 98.1 87 16 132/61 95 12/22/16 00:00 97.6 92 20 123/60 94 Physical Exam GENERAL: Patient is a pleasant female in no apparent distress. SKIN: No rashes, ecchymoses or lesions. Cool and dry. Lumbar incision well- healed without significant tenderness. No erythema or edema or drainage. NECK: Trachea midline. No JVD or lymphadenopathy. Supple, nontender, no meningeal signs. CARDIOVASCULAR: Regular rate and rhythm RESPIRATORY: Clear and regular GASTROINTESTINAL: Abdomen mildly distended, soft, no significant tenderness MUSCULOSKELETAL: No significant lower extremity edema. No significant joint pain with range of motion in the upper and lower extremities. NEUROLOGICAL: Awake and alert Oriented 3 Speech is clear Conversant and appropriate Follow simple commands well Answers questions appropriately Reasonable judgment and insight Recent and remote memory are intact No evidence of anxiety or depression Sensation intact to light touch in the lower extremities Strength within normal limits major flexion and extension groups in the lower extremities Braden's response absent bilateral No ankle clonus Laboratory Laboratory Tests Test 12/22/16 04:00 White Blood Count 6.1 Red Blood Count 2.87 Hemoglobin 8.9 Hematocrit 26.8 Mean Corpuscular Volume 93.3 Mean Corpuscular Hemoglobin 31.0 Mean Corpuscular Hemoglobin 33.3 Concent Red Cell Distribution Width 15.8 Platelet Count 185 Mean Platelet Volume 8.5 Neutrophils (%) (Auto) 76.8 Lymphocytes (%) (Auto) 6.6 Monocytes (%) (Auto) 13.4 Eosinophils (%) (Auto) 2.8 Basophils (%) (Auto) 0.4 Neutrophils # (Auto) 4.7 Lymphocytes # (Auto) 0.4 Monocytes # (Auto) 0.8 Eosinophils # (Auto) 0.2 Basophils # (Auto) 0.0 CBC Comment AUTO DIFF Differential Total Cells 100 Counted Neutrophils % (Manual) 71 Band Neutrophils % 2 Lymphocytes % 11 Monocytes % 11 Eosinophils % 2 Neutrophils # (Manual) 4.6 Metamyelocytes 1 Myelocytes 2 Differential Comment FINAL DIFF MANUAL Platelet Estimate NORMAL Platelet Morphology Comment NORMAL Sodium Level 138 Potassium Level 4.2 Chloride Level 105 Carbon Dioxide Level 22.8 Anion Gap 10 Blood Urea Nitrogen 21 Creatinine 0.31 Estimat Glomerular Filtration 204 Rate Random Glucose 118 Calcium Level 8.7 Magnesium Level 1.7 Total Bilirubin 0.4 Aspartate Amino Transf 28 (AST/SGOT) Alanine Aminotransferase 7 (ALT/SGPT) Alkaline Phosphatase 73 Total Protein 5.3 Albumin 2.1 Result Diagram: 12/22/16 0400 12/22/16 0400 Imaging 12/17/16 CT scan lumbar spine images reviewed by the undersigned. There is a fluid collection at the previous laminectomy defect. This does not extend towards the skin surface. Punctate collection of air in the psoas muscle. Some soft tissue edema surrounding the previous operative site. No new bone erosion Abdomen X-Ray 12/22/16 0000 Signed Impressions: Service Date/Time: Thursday, December 22, 2016 14:59 - CONCLUSION: Decrease in amount of contrast within the bowel since the previous study. Jesús Anderson MD Assessment and Plan Assessment and Plan Impression: 1. Patient's lumbar wound appears to be healing well status post prior debridement of the wound with indirect closure of the dural tear and postoperative lumbar subarachnoid drain placement. 12/17/16 CT scan lumbar spine images reveal a fluid collection along the previous laminectomy site. Given the amount of tissue loss noted at the time of the patient's surgery, it is anticipated that she will have some fluid filled space at the operative site. She does not have any definite symptoms, exam findings or laboratory findings or imaging findings to indicate definite recurrent abscess or persistent infection. Recommendations: A needle aspiration of the fluid collection at the operative site could be performed if this is successfully necessary from an infectious disease standpoint to determine the course of antibiotic therapy. I do not see anything definite from a neurosurgical standpoint which would indicate definite persistent infection or development of osteomyelitis or discitis. If CT-guided aspiration is performed, we will need to adhere to strict sterile technique to avoid introducing organisms into the epidural seroma site. Pratik [facility] MD December 22, 2016 23:11
[2016-12-23] VITALS: BP 148/64; PULSE 82; RESP 20; TEMP 97.4; O2SAT 97
[2016-12-23] MEDS: PANTOPRAZOLE SODIUM 40 MG VIAL IV PUSH SCH ×2 (04:48→14:16)
[2016-12-23] MEDS: METOCLOPRAMIDE HCL 10 MG/2 ML VIAL IV PUSH SCH ×3 (04:49→21:53)
[2016-12-23 05:39] LABS: AUTOMATED NEUTROPHIL # 3.9 TH/MM3 (1.8-7.7); BASOPHIL % 0.4 % (0.0-2.0); EOSINOPHIL # 0.2 TH/MM3 (0-0.4); EOSINOPHIL % 3.4 % (0.0-4.0); HEMATOCRIT 31.1 % (35.0-46.0); LYMPHOCYTE # 0.4 TH/MM3 (1.0-4.8); MEAN CELL VOLUME 92.9 FL (80.0-100.0); MEAN CORPUSCULAR HEMOGLOBIN 30.3 PG (27.0-34.0); MEAN CORPUSCULAR HGB CONC 32.6 % (32.0-36.0); MONO % 14.9 % (0.0-8.0); NEUT % 74.3 % (16.0-70.0); PLATELET COUNT 210 TH/MM3 (150-450); RED BLOOD COUNT 3.34 MIL/MM3 (4.00-5.30); RED CELL DISTRIBUTION WIDTH 15.5 % (11.6-17.2); WHITE BLOOD COUNT 5.2 TH/MM3 (4.0-11.0)
[2016-12-23 05:42] LABS: HEMO FLAGS AUTO DIFF
[2016-12-23 06:09] LABS: BICARBONATE 22.1 MEQ/L (21.0-32.0); POTASSIUM 4.4 MEQ/L (3.5-5.1)
[2016-12-23] MEDS: METOPROLOL TARTRATE 50 MG TAB NG SCH ×2 (07:49→21:54)
[2016-12-23] MEDS: POLYETHYLENE GLYCOL 17 GM PKG PO SCH (07:49)
[2016-12-23] MEDS: DOCUSATE SODIUM 100 MG CAP PO SCH ×2 (07:49→21:54)
[2016-12-23] MEDS: SODIUM CHLORIDE 0.9% FLUSH 10 ML FLUSH IV FLUSH SCH ×2 (07:49→21:44)
[2016-12-23] MEDS: ceFAZolin 2 GM PREMIX 50 ML IV SCH (07:50)
--- NOTE | 2016-12-23 07:51 | HHI.PR ---
Subjective Remarks Patient denies any CP or SOB. NG clamped. Nausea improved and tolerating clear liquids Objective Vital Signs Date Time Temp Pulse Resp B/P Pulse Ox O2 Delivery O2 Flow Rate FiO2 12/23/16 00:00 97.4 82 20 148/64 97 12/22/16 20:00 97.9 85 20 136/66 95 12/22/16 16:00 97.8 86 17 121/66 96 12/22/16 12:00 97.9 85 17 135/65 95 12/22/16 08:00 98.1 87 16 132/61 95 I/O 12/22/16 12/22/16 12/22/16 12/23/16 12/23/16 12/23/16 07:00 15:00 23:00 07:00 15:00 23:00 Intake Total 675 ml 1101 ml 120 ml 1094 ml Balance 675 ml 1101 ml 120 ml 1094 ml Intake Oral 60 ml 180 ml 120 ml 120 ml IV Total 50 ml TPN/PPN 550 ml 778 ml 877 ml Lipid 65 ml 93 ml 97 ml # Voids 4 4 2 3 # Bowel Movements 2 3 1 0 Result Diagram: 12/23/16 0519 12/23/16 0519 Imaging Last 72 hours Impressions Abdomen X-Ray 12/22/16 0000 Signed Impressions: Service Date/Time: Thursday, December 22, 2016 14:59 - CONCLUSION: Decrease in amount of contrast within the bowel since the previous study. Jesús Anderson MD Objective Remarks GENERAL: Alert and cooperative SKIN: Warm and dry. HEAD: Normocephalic. EYES: No scleral icterus. No injection or drainage. NECK: Supple, trachea midline. No JVD or lymphadenopathy. CARDIOVASCULAR: Regular rate and rhythm without murmurs, gallops, or rubs. RESPIRATORY: Breath sounds equal bilaterally. No accessory muscle use. GASTROINTESTINAL: Abdomen soft, non-tender, nondistended. MUSCULOSKELETAL: No cyanosis, or edema. BACK: Nontender without obvious deformity. No CVA tenderness. Medications and IVs Current Medications Medications (Trade) Dose Ordered Sig/Aleja Route Start Time Stop Time Status Last Admin (NS Flush) 2 ml UNSCH PRN IV FLUSH 12/21/16 15:00 (NS Flush) 2 ml BID IV FLUSH 12/21/16 21:00 12/22/16 19:54 (Narcan Inj) 0.4 mg UNSCH PRN IV 12/21/16 15:00 (Tylenol) 650 mg Q6H PRN PO 12/21/16 15:00 (Dulcolax Supp) 1 mg DAILY PRN RECTAL 12/21/16 15:00 (Colace) 100 mg BID PO 12/21/16 21:00 12/22/16 08:39 (Milk Of Magnesia Liq) 30 ml DAILY PRN PO 12/21/16 15:00 (Lopressor) 50 mg Q12HR NG 12/21/16 21:00 12/22/16 19:54 Pantoprazole Sodium 40 mg 40 mg Q12H IV PUSH 12/21/16 16:00 12/23/16 04:48 (Ancef 2 Gm Premix) 50 ml @ 100 mls/hr Q8H IV 12/21/16 16:00 12/22/16 23:48 (Lovenox Inj) 40 mg Q24H SQ 12/21/16 16:00 12/22/16 14:23 (Reglan Inj) 10 mg Q8HR IV PUSH 12/21/16 22:00 12/23/16 04:49 Polyethylene Glycol 17 gm 17 gm DAILY PO 12/22/16 09:00 12/22/16 08:39 Multivitamins 10 ml/Folic Acid 1 mg/Amino Acids/ Electrolytes/ Dextrose 2,010.2 ml @ 83 mls/hr Q24H IV 12/21/16 20:00 12/22/16 19:54 (Liposyn Iii 20% Inj) 250 ml @ 10 mls/hr Q24H IV 12/21/16 20:00 12/22/16 19:53 Assessment and Plan Problem List: (1) Ileus Status: Acute Plan: GI consulted and managing. On IV reglan, NG clamped and on clear liquid. Dietary consult for TPN Patient was seen previously and again now for ileus constipation and fecal impaction but this all appears to be resolving at this point with good bowel movements after several enemas and a GoLYTELY prep Abdominal KUB with decrease in amount of contrast with bowel from previous study. (2) HTN (hypertension) Status: Chronic Plan: Continue current treatment well controlled. 148/64 (3) Nausea & vomiting Status: Acute Plan: Improving. NG tube clamped today. On reglan ATC. tolerated clear liquid and nausea is improving. (4) Poor appetite Status: Acute Plan: Clear liquids. On TPN with Dietary consult (5) Dural tear Status: Acute Plan: Healing well. Site free on redness or drainage. On antibiotics per ID. Dr. Melissa consulted to follow along. Repeat lumbar with persistent fluid collection. (6) Debility Status: Acute Plan: PT ordered daily Assessment and Plan Assessment and plan discussed with Dr. Kendrick Discussed Condition With Nursing Physician Attestation I and the LITHOGRAPHIC PRESS FEEDER have both examined this patient and reviewed this note and I agree with these findings and plan of care. Nestor Kendrick. Dayanara Barbour. LITHOGRAPHIC PRESS FEEDER December 23, 2016 07:51
[2016-12-23 08:00] VITALS: BP 140/66; PULSE 89; RESP 16; TEMP 96.4; O2SAT 94
[2016-12-23 08:55] LABS: BANDS 6 % (0-6); EOSINOPHILS 1 % (0-4); MYELOCYTES 2 % (0-0); NEUTROPHIL # MANUAL DIFF 4.1 TH/MM3 (1.8-7.7); POLYS (SEG NEUTROPHILS) 70 % (16-70); WBC DIFF SAMPLE 100
[2016-12-23 08:56] LABS: PLATELET ESTIMATE SMEAR NORMAL (NORMAL); PLATELET MORPHOLOGY NORMAL (NORMAL); SCAN/DIFF FINAL DIFF MANUAL
--- NOTE | 2016-12-23 10:50 | HHI.IDPN ---
Subjective Subjective Remarks 86 y/o F with endometrial cancer, port, MSSA epidural abscess/discitis post procedure at OSH. Overnight events reviewed No fevers No rash No diarrhea Antibiotics Ancef IV Lines Line sites with no e.o infection Past Medical History reviewed Allergies: Coded Allergies: Penicillin (Verified Allergy, Severe, Rash, 11/06/16) Rash 2 decades back. Objective . Vital Signs Date Time Temp Pulse Resp B/P Pulse Ox O2 Delivery O2 Flow Rate FiO2 12/23/16 08:00 96.4 89 16 140/66 94 12/23/16 00:00 97.4 82 20 148/64 97 12/22/16 20:00 97.9 85 20 136/66 95 12/22/16 16:00 97.8 86 17 121/66 96 12/22/16 12:00 97.9 85 17 135/65 95 12/22/16 12/22/16 12/23/16 15:00 23:00 07:00 Intake Total 1101 ml 120 ml 1094 ml Balance 1101 ml 120 ml 1094 ml Intake Oral 180 ml 120 ml 120 ml IV Total 50 ml TPN/PPN 778 ml 877 ml Lipid 93 ml 97 ml # Voids 4 2 3 # Bowel Movements 3 1 0 . Laboratory Tests Test 12/22/16 12/23/16 04:00 05:19 White Blood Count 6.1 TH/MM3 5.2 TH/MM3 Red Blood Count 2.87 MIL/MM3 3.34 MIL/MM3 Hemoglobin 8.9 GM/DL 10.1 GM/DL Hematocrit 26.8 % 31.1 % Mean Corpuscular Volume 93.3 FL 92.9 FL Mean Corpuscular Hemoglobin 31.0 PG 30.3 PG Mean Corpuscular Hemoglobin 33.3 % 32.6 % Concent Red Cell Distribution Width 15.8 % 15.5 % Platelet Count 185 TH/MM3 210 TH/MM3 Mean Platelet Volume 8.5 FL 8.1 FL Neutrophils (%) (Auto) 76.8 % 74.3 % Lymphocytes (%) (Auto) 6.6 % 7.0 % Monocytes (%) (Auto) 13.4 % 14.9 % Eosinophils (%) (Auto) 2.8 % 3.4 % Basophils (%) (Auto) 0.4 % 0.4 % Neutrophils # (Auto) 4.7 TH/MM3 3.9 TH/MM3 Lymphocytes # (Auto) 0.4 TH/MM3 0.4 TH/MM3 Monocytes # (Auto) 0.8 TH/MM3 0.8 TH/MM3 Eosinophils # (Auto) 0.2 TH/MM3 0.2 TH/MM3 Basophils # (Auto) 0.0 TH/MM3 0.0 TH/MM3 CBC Comment AUTO DIFF AUTO DIFF Differential Total Cells 100 100 Counted Neutrophils % (Manual) 71 % 70 % Band Neutrophils % 2 % 6 % Lymphocytes % 11 % 13 % Monocytes % 11 % 8 % Eosinophils % 2 % 1 % Neutrophils # (Manual) 4.6 TH/MM3 4.1 TH/MM3 Metamyelocytes 1 % Myelocytes 2 % 2 % Differential Comment FINAL DIFF FINAL DIFF MANUAL MANUAL Platelet Estimate NORMAL NORMAL Platelet Morphology Comment NORMAL NORMAL Laboratory Tests Test 12/22/16 12/23/16 04:00 05:19 Sodium Level 138 MEQ/L 136 MEQ/L Potassium Level 4.2 MEQ/L 4.4 MEQ/L Chloride Level 105 MEQ/L 106 MEQ/L Carbon Dioxide Level 22.8 MEQ/L 22.1 MEQ/L Anion Gap 10 MEQ/L 8 MEQ/L Blood Urea Nitrogen 21 MG/DL 19 MG/DL Creatinine 0.31 MG/DL 0.34 MG/DL Estimat Glomerular Filtration 204 ML/MIN 183 ML/MIN Rate Random Glucose 118 MG/DL 126 MG/DL Calcium Level 8.7 MG/DL 8.7 MG/DL Magnesium Level 1.7 MG/DL Total Bilirubin 0.4 MG/DL Aspartate Amino Transf 28 U/L (AST/SGOT) Alanine Aminotransferase 7 U/L (ALT/SGPT) Alkaline Phosphatase 73 U/L Total Protein 5.3 GM/DL Albumin 2.1 GM/DL C-Reactive Protein 2.34 MG/DL Imaging Last Impressions Abdomen X-Ray 12/22/16 0000 Signed Impressions: Service Date/Time: Thursday, December 22, 2016 14:59 - CONCLUSION: Decrease in amount of contrast within the bowel since the previous study. Jesús Anderson MD Physical Exam GENERAL: Chronically ill appearing, well-developed patient, in no apparent distress. SKIN: No rashes, ecchymoses or lesions. Cool and dry. HEAD: Atraumatic. Normocephalic. No temporal or scalp tenderness. EYES: Pupils equal round and reactive. Extraocular motions intact. No scleral icterus. No injection or drainage. ENT: Nose without bleeding, purulent drainage or septal hematoma. Throat without erythema, tonsillar hypertrophy or exudate. Uvula midline. Airway patent. NECK: Trachea midline. Supple, nontender, no meningeal signs. CARDIOVASCULAR: RRR RESPIRATORY: Clear to auscultation. Breath sounds equal bilaterally. No wheezes , rales, or rhonchi. GASTROINTESTINAL: Abdomen soft, non-tender, nondistended. MUSCULOSKELETAL: Extremities without clubbing, cyanosis, or edema. No joint tenderness, effusion, or edema noted. No calf tenderness. Negative Homans sign bilaterally. NEUROLOGICAL: Awake and alert. Grossly non focal Psych: cooperative IV line sites with no e/o infection. Assessment & Plan Remarks MSSA Epidural abscess/discitis post op (1st surgery at [facility]) Ileus with constipation Endometrial cancer with mets. Recs: Repeat imaging with fluid collection likely anomaly as a result of surgeries. Appreciate input. Will not do an IR guided aspiration as risk on introducing new infection. Clinically appears improved with no fever. Normal WBC and CRP down trended. Discontinue Ancef IV 2 gm q8hrs Ileus resolving now having regular BMs and abdominal symptoms better. GI symptoms not from Ancef. Will sign off please call back if any change in clinical condition or questions. rose pt, spouse and daughter in room. rose RN to notify primary about antibiotics being stopped. Nichole Nina MD December 23, 2016 10:50
[2016-12-23 12:00] VITALS: BP 145/71; PULSE 82; RESP 16; TEMP 97; O2SAT 95
--- NOTE | 2016-12-23 12:33 | HHI.GIFU ---
Subjective Remarks Comfortable in bed NG tube in place but no suction tolerating clear liquids has had several bowel movements Objective Vitals I&O Vital Signs Date Time Temp Pulse Resp B/P Pulse Ox O2 Delivery O2 Flow Rate FiO2 12/23/16 12:00 97.0 82 16 145/71 95 12/23/16 08:00 96.4 89 16 140/66 94 12/23/16 00:00 97.4 82 20 148/64 97 12/22/16 20:00 97.9 85 20 136/66 95 12/22/16 16:00 97.8 86 17 121/66 96 I/O 12/22/16 12/22/16 12/22/16 12/23/16 12/23/16 12/23/16 06:59 14:59 22:59 06:59 14:59 22:59 Intake Total 675 ml 1101 ml 120 ml 1094 ml Balance 675 ml 1101 ml 120 ml 1094 ml Intake Oral 60 ml 180 ml 120 ml 120 ml IV Total 50 ml TPN/PPN 550 ml 778 ml 877 ml Lipid 65 ml 93 ml 97 ml # Voids 4 4 2 3 # Bowel Movements 2 3 1 0 Laboratory Laboratory Tests Test 12/23/16 05:19 White Blood Count 5.2 Red Blood Count 3.34 Hemoglobin 10.1 Hematocrit 31.1 Mean Corpuscular Volume 92.9 Mean Corpuscular Hemoglobin 30.3 Mean Corpuscular Hemoglobin 32.6 Concent Red Cell Distribution Width 15.5 Platelet Count 210 Mean Platelet Volume 8.1 Neutrophils (%) (Auto) 74.3 Lymphocytes (%) (Auto) 7.0 Monocytes (%) (Auto) 14.9 Eosinophils (%) (Auto) 3.4 Basophils (%) (Auto) 0.4 Neutrophils # (Auto) 3.9 Lymphocytes # (Auto) 0.4 Monocytes # (Auto) 0.8 Eosinophils # (Auto) 0.2 Basophils # (Auto) 0.0 CBC Comment AUTO DIFF Differential Total Cells 100 Counted Neutrophils % (Manual) 70 Band Neutrophils % 6 Lymphocytes % 13 Monocytes % 8 Eosinophils % 1 Neutrophils # (Manual) 4.1 Myelocytes 2 Differential Comment FINAL DIFF MANUAL Platelet Estimate NORMAL Platelet Morphology Comment NORMAL Sodium Level 136 Potassium Level 4.4 Chloride Level 106 Carbon Dioxide Level 22.1 Anion Gap 8 Blood Urea Nitrogen 19 Creatinine 0.34 Estimat Glomerular Filtration 183 Rate Random Glucose 126 Calcium Level 8.7 C-Reactive Protein 2.34 Imaging Last 48 hours Impressions Abdomen X-Ray 12/22/16 0000 Signed Impressions: Service Date/Time: Thursday, December 22, 2016 14:59 - CONCLUSION: Decrease in amount of contrast within the bowel since the previous study. Jesús Anderson MD Physical Exam HEENT: EOMI; normocephalic; atraumatic; no jaundice. CHEST: CTA CARDIAC: RRR ABDOMEN: Soft, nondistended, nontender; no hepatosplenomegaly; bowel sounds are present in all four quadrants. EXTREMITIES: No clubbing, cyanosis, or edema. SKIN: Normal; no rash; no jaundice. HUMAN RESOURCE OFFICER: lethargic. Assessment and Plan Plan ASSESSMENT - ileus - improving. having formed BM after 2 rounds enemas, GoLytely, IV reglan. She is having multiple soft stools, tolerating clears okay several months intermittent nausea, heartburn, belching. KUB 12-19-16 --> decreasing small bowel distention/ileus. CT 12-17-16 small bowel ileus, constipation, moderate ascites. 12-18-16 SBxr -- > prolonged small bowel transit time, nonspecific mild to moderate diffuse small bowel distention, indicate ileus, prominent reflux contrast into proximal thoracic esophagus. EGD 12-17-16 --> esophagus has free reflux and inflammation, but no geoff seen, stomach full of bilious liquid, no ulcerations or erosions, pylorus widely patent duodenum, moderate bilious liquid aspirated. She has been on TPN - epidural abscess s/p debridement, was d/c to [facility] - metastatic endometrial ca dx 2011 s/p robotic assisted vaginal hysterectomy and staging, chemo PLAN -Advance to full liquids -Remove NG tube - IV reglan - Cont. bowel regimen - Cont. TPN but possibly taper off as patient is tolerating oral intake Mich Hanson MD December 23, 2016 12:33
[2016-12-23] MEDS: ENOXAPARIN SODIUM 40 MG/0.4 ML SYRINGE SQ SCH (14:16)
[2016-12-23 16:00] VITALS: BP 142/66; PULSE 87; RESP 16; TEMP 97.1; O2SAT 96
[2016-12-23 20:00] VITALS: BP 149/67; PULSE 93; RESP 18; TEMP 97.4; O2SAT 98
[2016-12-23] MEDS ORDERED: FAT EMULSION 20% INJ 250 ML (@10 mls/hr) IV-CENTRAL SCH (20:00)
[2016-12-23] MEDS ORDERED: CLINIMIX E 4.25/25 2000 mL- >42 mls/hr IV-CENTRAL SCH ×3 (20:00)
[2016-12-23] MEDS: FAT EMULSION 20% INJ 250 ML (@10 mls/hr) IV SCH (21:43)
[2016-12-23] MEDS: CLINIMIX E 4.25/5 2000 mL- >42 mls/hr IV SCH ×3 (21:43)
[2016-12-24] VITALS: BP 145/68; PULSE 94; RESP 18; TEMP 99.5; O2SAT 96
[2016-12-24] MEDS: PANTOPRAZOLE SODIUM 40 MG VIAL IV PUSH SCH ×2 (04:43→16:17)
[2016-12-24] MEDS: METOCLOPRAMIDE HCL 10 MG/2 ML VIAL IV PUSH SCH ×3 (04:59→21:59)
[2016-12-24 05:12] LABS: AUTOMATED NEUTROPHIL # 4.6 TH/MM3 (1.8-7.7); BASOPHIL % 0.5 % (0.0-2.0); EOSINOPHIL # 0.2 TH/MM3 (0-0.4); EOSINOPHIL % 2.7 % (0.0-4.0); HEMATOCRIT 25.2 % (35.0-46.0); LYMPH % 6.3 % (9.0-44.0); LYMPHOCYTE # 0.4 TH/MM3 (1.0-4.8); MEAN CELL VOLUME 92.9 FL (80.0-100.0); MEAN CORPUSCULAR HEMOGLOBIN 31.1 PG (27.0-34.0); MEAN CORPUSCULAR HGB CONC 33.5 % (32.0-36.0); MONO % 14.6 % (0.0-8.0); NEUT % 75.9 % (16.0-70.0); PLATELET COUNT 203 TH/MM3 (150-450); RED BLOOD COUNT 2.71 MIL/MM3 (4.00-5.30); RED CELL DISTRIBUTION WIDTH 15.7 % (11.6-17.2)
[2016-12-24 05:20] LABS: HEMO FLAGS AUTO DIFF
[2016-12-24 05:27] LABS: BICARBONATE 22.9 MEQ/L (21.0-32.0); POTASSIUM 4.5 MEQ/L (3.5-5.1)
[2016-12-24 08:00] VITALS: BP 116/57; PULSE 94; RESP 16; TEMP 97.1; O2SAT 95
[2016-12-24 08:09] LABS: BANDS 2 % (0-6); EOSINOPHILS 2 % (0-4); METAMYELOCYTES 1 % (0-1); NEUTROPHIL # MANUAL DIFF 4.8 TH/MM3 (1.8-7.7); POLYS (SEG NEUTROPHILS) 77 % (16-70); WBC DIFF SAMPLE 100
[2016-12-24 08:10] LABS: PLATELET ESTIMATE SMEAR NORMAL (NORMAL); PLATELET MORPHOLOGY NORMAL (NORMAL); SCAN/DIFF FINAL DIFF MANUAL
--- NOTE | 2016-12-24 08:18 | HHI.PR ---
Subjective Remarks Patient denies any CP or SOB. NG removed denies nausea tolerating advance liquids however poor intake Objective Vital Signs Date Time Temp Pulse Resp B/P Pulse Ox O2 Delivery O2 Flow Rate FiO2 12/24/16 00:00 99.5 94 18 145/68 96 12/23/16 20:00 97.4 93 18 149/67 98 12/23/16 16:00 97.1 87 16 142/66 96 12/23/16 12:00 97.0 82 16 145/71 95 I/O 12/23/16 12/23/16 12/23/16 12/24/16 12/24/16 12/24/16 07:00 15:00 23:00 07:00 15:00 23:00 Intake Total 1094 ml 1089 ml 597 ml 603 ml Balance 1094 ml 1089 ml 597 ml 603 ml Intake Oral 120 ml 180 ml 120 ml 0 ml IV Total 50 ml TPN/PPN 877 ml 769 ml 416 ml 535 ml Lipid 97 ml 90 ml 61 ml 68 ml # Voids 3 2 1 3 # Bowel Movements 0 0 1 0 Result Diagram: 12/24/16 0459 12/24/16 0459 Imaging Last 72 hours Impressions Abdomen X-Ray 12/22/16 0000 Signed Impressions: Service Date/Time: Thursday, December 22, 2016 14:59 - CONCLUSION: Decrease in amount of contrast within the bowel since the previous study. Jesús Anderson MD Objective Remarks GENERAL: Alert and cooperative SKIN: Warm and dry. Back wound site without redness HEAD: Normocephalic. EYES: No scleral icterus. No injection or drainage. NECK: Supple, trachea midline. No JVD or lymphadenopathy. CARDIOVASCULAR: Regular rate and rhythm without murmurs, gallops, or rubs. RESPIRATORY: Breath sounds equal bilaterally. No accessory muscle use. GASTROINTESTINAL: Abdomen soft, non-tender, nondistended. MUSCULOSKELETAL: No cyanosis, or edema. BACK: Nontender without obvious deformity. No CVA tenderness. Medications and IVs Current Medications Medications (Trade) Dose Ordered Sig/Aleja Route Start Time Stop Time Status Last Admin (NS Flush) 2 ml UNSCH PRN IV FLUSH 12/21/16 15:00 (NS Flush) 2 ml BID IV FLUSH 12/21/16 21:00 12/23/16 21:44 (Narcan Inj) 0.4 mg UNSCH PRN IV 12/21/16 15:00 (Tylenol) 650 mg Q6H PRN PO 12/21/16 15:00 (Dulcolax Supp) 1 mg DAILY PRN RECTAL 12/21/16 15:00 (Colace) 100 mg BID PO 12/21/16 21:00 12/23/16 21:54 (Milk Of Magnesia Liq) 30 ml DAILY PRN PO 12/21/16 15:00 (Lopressor) 50 mg Q12HR NG 12/21/16 21:00 12/23/16 21:54 (Protonix Inj) 40 mg Q12H IV PUSH 12/21/16 16:00 12/24/16 04:43 (Lovenox Inj) 40 mg Q24H SQ 12/21/16 16:00 12/23/16 14:16 (Reglan Inj) 10 mg Q8HR IV PUSH 12/21/16 22:00 12/24/16 04:59 Polyethylene Glycol 17 gm 17 gm DAILY PO 12/22/16 09:00 12/23/16 07:49 Multivitamins 10 ml/Folic Acid 1 mg/Amino Acids/ Electrolytes/ Dextrose 2,010.2 ml @ 83 mls/hr Q24H IV 12/21/16 20:00 12/23/16 21:43 (Liposyn Iii 20% Inj) 250 ml @ 10 mls/hr Q24H IV 12/21/16 20:00 12/23/16 21:43 Patient Own Medication androgel 1.662 % APPLY... DAILY TOPICAL 12/24/16 09:00 Assessment and Plan Problem List: (1) Ileus Status: Acute Plan: GI consulted and managing. On IV reglan, NG tube removed and diet advanced to full liquid. Patient with poor intake. Fluids encouraged. Patient was seen previously and again now for ileus constipation and fecal impaction but this all appears to be resolving at this point with good bowel movements after several enemas and a GoLYTELY prep Abdominal KUB on the 24th with decrease in amount of contrast with bowel from previous study. (2) HTN (hypertension) Status: Chronic Plan: Continue current treatment well controlled. 148/64 (3) Nausea & vomiting Status: Acute Plan: Improving. NG tube clamped today. On reglan ATC. tolerated clear liquid and nausea is improving. (4) Poor appetite Status: Acute Plan: Clear liquids. On TPN with Dietary consult (5) Dural tear Status: Acute Plan: Healing well. Site free on redness or drainage. On antibiotics per ID. Dr. Melissa consulted to follow along. Repeat lumbar with persistent fluid collection. (6) Debility Status: Acute Plan: PT ordered daily. Patient is a total lift (7) Anemia Status: Acute Plan: HGB stable will monitor Assessment and Plan Assessment and plan discussed with Dr. Kendrick Discussed Condition With Nursing Discharge Planning [facility] Physician Attestation I and the EDI COORDINATOR have both examined this patient and [id number] this note and I agree with these findings and plan of care. Dayanara Sams EDI COORDINATOR December 24, 2016 08:18
[2016-12-24] MEDS: DOCUSATE SODIUM 100 MG CAP PO SCH ×2 (08:42→21:59)
[2016-12-24] MEDS: METOPROLOL TARTRATE 50 MG TAB NG SCH ×2 (08:42→21:59)
[2016-12-24] MEDS: POLYETHYLENE GLYCOL 17 GM PKG PO SCH (08:42)
[2016-12-24] MEDS: ANDROGEL 1.62% TOPICAL SCH (08:43)
[2016-12-24] MEDS: SODIUM CHLORIDE 0.9% FLUSH 10 ML FLUSH IV FLUSH SCH ×2 (08:43→21:59)
[2016-12-24] MEDS ORDERED: ANDROGEL 1.62% TOPICAL SCH (09:00)
[2016-12-24 12:00] VITALS: BP 138/65; PULSE 84; RESP 16; TEMP 97.7; O2SAT 95
--- NOTE | 2016-12-24 12:26 | HHI.GIFU ---
Subjective Remarks Patient is resting in bed, doing great, denies nausea, vomiting or abdomen pain , she has been moving her bowels. Inquiring about diet (Kiran Espino) Objective Vitals I&O Vital Signs Date Time Temp Pulse Resp B/P Pulse Ox O2 Delivery O2 Flow Rate FiO2 12/24/16 08:00 97.1 94 16 116/57 95 12/24/16 00:00 99.5 94 18 145/68 96 12/23/16 20:00 97.4 93 18 149/67 98 12/23/16 16:00 97.1 87 16 142/66 96 I/O 12/23/16 12/23/16 12/23/16 12/24/16 12/24/16 12/24/16 07:00 15:00 23:00 07:00 15:00 23:00 Intake Total 1094 ml 1089 ml 597 ml 603 ml Balance 1094 ml 1089 ml 597 ml 603 ml Intake Oral 120 ml 180 ml 120 ml 0 ml IV Total 50 ml TPN/PPN 877 ml 769 ml 416 ml 535 ml Lipid 97 ml 90 ml 61 ml 68 ml # Voids 3 2 1 3 # Bowel Movements 0 0 1 0 Laboratory Laboratory Tests Test 12/24/16 04:59 White Blood Count 6.0 Red Blood Count 2.71 Hemoglobin 8.4 Hematocrit 25.2 Mean Corpuscular Volume 92.9 Mean Corpuscular Hemoglobin 31.1 Mean Corpuscular Hemoglobin 33.5 Concent Red Cell Distribution Width 15.7 Platelet Count 203 Mean Platelet Volume 8.2 Neutrophils (%) (Auto) 75.9 Lymphocytes (%) (Auto) 6.3 Monocytes (%) (Auto) 14.6 Eosinophils (%) (Auto) 2.7 Basophils (%) (Auto) 0.5 Neutrophils # (Auto) 4.6 Lymphocytes # (Auto) 0.4 Monocytes # (Auto) 0.9 Eosinophils # (Auto) 0.2 Basophils # (Auto) 0.0 CBC Comment AUTO DIFF Differential Total Cells 100 Counted Neutrophils % (Manual) 77 Band Neutrophils % 2 Lymphocytes % 6 Monocytes % 12 Eosinophils % 2 Neutrophils # (Manual) 4.8 Metamyelocytes 1 Differential Comment FINAL DIFF MANUAL Platelet Estimate NORMAL Platelet Morphology Comment NORMAL Red Cell Morphology Comment NORMAL Sodium Level 136 Potassium Level 4.5 Chloride Level 105 Carbon Dioxide Level 22.9 Anion Gap 8 Blood Urea Nitrogen 18 Creatinine 0.31 Estimat Glomerular Filtration 204 Rate Random Glucose 122 Calcium Level 8.2 Imaging Last Impressions Abdomen X-Ray 12/22/16 0000 Signed Impressions: Service Date/Time: Tuesday, December 22, 2016 14:59 - CONCLUSION: Decrease in amount of contrast within the bowel since the previous study. Jesús Anderson MD Physical Exam HEENT: EOMI; normocephalic; atraumatic; no jaundice. CHEST: CTA CARDIAC: RRR ABDOMEN: Soft, nondistended, nontender; no hepatosplenomegaly; bowel sounds are present in all four quadrants. EXTREMITIES: No clubbing, cyanosis, or edema. SKIN: Normal; no rash; no jaundice. BATTERY STACKER: Alert and oriented (Kiran Espino) Assessment and Plan Plan ASSESSMENT - ileus - Resolved having BM after 2 rounds enemas, GoLytely, IV reglan. She is having multiple soft stools, tolerating fulls okay several months intermittent nausea, heartburn, belching. KUB - 17Decrease in amount of contrast within the bowel since the previous study . KUB 12-19-16 --> decreasing small bowel distention/ileus. CT 12-17-16 small bowel ileus, constipation, moderate ascites. 12-18-16 SBxr -- > prolonged small bowel transit time, nonspecific mild to moderate diffuse small bowel distention, indicate ileus, prominent reflux contrast into proximal thoracic esophagus. EGD 12-17-16 --> esophagus has free reflux and inflammation, but no geoff seen, stomach full of bilious liquid, no ulcerations or erosions, pylorus widely patent duodenum, moderate bilious liquid aspirated. She has been on TPN - epidural abscess s/p debridement, was d/c to [facility] - metastatic endometrial ca dx 2011 s/p robotic assisted vaginal hysterectomy and staging, chemo PLAN - MIRIAM - Taper off TPN - Cont. bowel regimen - Supportive care - Patient seen and examined by Dr. Hanson and myself (Kiran Espino) Physician Comments Patient seen and examined Agree with above Continue with current supportive care Monitor labs Not much to add from a GI standpoint we will sign off (Mich Hanson MD ) Kiran Espino December 24, 2016 12:26 Mich Hanson MD December 24, 2016 20:36
[2016-12-24 16:00] VITALS: BP 163/74; PULSE 94; RESP 18; TEMP 97.5; O2SAT 97
[2016-12-24] MEDS: ENOXAPARIN SODIUM 40 MG/0.4 ML SYRINGE SQ SCH (16:17)
[2016-12-24 20:00] VITALS: BP 142/63; PULSE 94; RESP 20; TEMP 97; O2SAT 95
[2016-12-24] MEDS: CLINIMIX E 4.25/5 2000 mL- >42 mls/hr IV SCH ×3 (21:58)
[2016-12-24] MEDS: FAT EMULSION 20% INJ 250 ML (@10 mls/hr) IV SCH (21:58)
[2016-12-25] VITALS: BP 129/58; PULSE 90; RESP 20; TEMP 97.5; O2SAT 96
[2016-12-25] MEDS: PANTOPRAZOLE SODIUM 40 MG VIAL IV PUSH SCH ×2 (04:00→15:39)
[2016-12-25] MEDS: METOCLOPRAMIDE HCL 10 MG/2 ML VIAL IV PUSH SCH ×3 (05:19→22:00)
[2016-12-25 08:00] VITALS: BP 130/62; PULSE 92; RESP 17; TEMP 97.9; O2SAT 96
[2016-12-25 08:13] LABS: ALKALINE PHOSPHATASE 110 U/L (45-117); ALT (GPT) 23 U/L (10-53); ANION GAP 8 MEQ/L (5-15); AST (GOT) 37 U/L (15-37); BICARBONATE 22.7 MEQ/L (21.0-32.0); BLOOD UREA NITROGEN 21 MG/DL (7-18); CHLORIDE 104 MEQ/L (98-107); GLOMERULAR FILTRATION RATE 177 ML/MIN (>89); POTASSIUM 4.7 MEQ/L (3.5-5.1); SODIUM (NA) 135 MEQ/L (136-145); TOTAL BILIRUBIN ADULT 0.5 MG/DL (0.2-1.0)
[2016-12-25] MEDS: POLYETHYLENE GLYCOL 17 GM PKG PO SCH (08:18)
[2016-12-25] MEDS: DOCUSATE SODIUM 100 MG CAP PO SCH ×2 (08:18→21:00)
[2016-12-25] MEDS: METOPROLOL TARTRATE 50 MG TAB NG SCH ×2 (08:18→21:00)
[2016-12-25] MEDS: SODIUM CHLORIDE 0.9% FLUSH 10 ML FLUSH IV FLUSH SCH ×2 (08:20→21:00)
[2016-12-25] MEDS: ANDROGEL 1.62% TOPICAL SCH (08:21)
--- NOTE | 2016-12-25 09:48 | HHI.PR ---
Subjective Remarks resting quietly now taking po foods Objective Vital Signs Date Time Temp Pulse Resp B/P Pulse Ox O2 Delivery O2 Flow Rate FiO2 12/25/16 08:00 97.9 92 17 130/62 96 12/25/16 00:00 97.5 90 20 129/58 96 12/24/16 20:00 97.0 94 20 142/63 95 12/24/16 16:00 97.5 94 18 163/74 97 12/24/16 12:00 97.7 84 16 138/65 95 I/O 12/24/16 12/24/16 12/24/16 12/25/16 12/25/16 12/25/16 07:00 15:00 23:00 07:00 15:00 23:00 Intake Total 603 ml 50 ml 240 ml 120 ml 1355 ml Balance 603 ml 50 ml 240 ml 120 ml 1355 ml Intake Oral 0 ml 50 ml 240 ml 120 ml TPN/PPN 535 ml 1355 ml Lipid 68 ml # Voids 3 2 3 3 # Bowel Movements 0 1 1 0 Result Diagram: 12/24/16 0459 12/25/16 0620 Objective Remarks GENERAL: SKIN: Warm and dry. HEAD: Atraumatic. Normocephalic. EYES: Pupils equal and round. No scleral icterus. No injection or drainage. ENT: No nasal bleeding or discharge. Mucous membranes pink and moist. NECK: Trachea midline. No JVD. CARDIOVASCULAR: Regular rate and rhythm. RESPIRATORY: No accessory muscle use. Clear to auscultation. Breath sounds equal bilaterally. GASTROINTESTINAL: Abdomen soft, non-tender, nondistended. Hepatic and splenic margins not palpable.moving bowels now MUSCULOSKELETAL: Extremities without clubbing, cyanosis, or edema. No obvious deformities. NEUROLOGICAL: Awake and alert. No obvious cranial nerve deficits. Motor strength diminished throughout no focsal deficits Normal speech. PSYCHIATRIC: Appropriate mood and affect; insight and judgment normal. Medications and IVs Inpatient Medications Acetaminophen (Tylenol) 650 mg Q6H PRN PO PAIN 1-3 AND/OR FEVER >101F; Start at 15:00 Albuterol/ Ipratropium (Duoneb Neb) 1 ampule Q2HR NEB PRN NEB SHORTNESS OF BREATH; Start 12/21/16 at 15:15 Bisacodyl (Dulcolax Supp) 1 mg DAILY PRN RECTAL CONSTIPATION; Start 12/21/16 at 15:00 Cefazolin Sodium/ Dextrose (Ancef 2 Gm Premix) 50 ml @ 100 mls/hr Q8H IV Last administered on 12/23/16 07:50; Start 12/21/16 at 16:00; Stop 12/23/16 at 10:04 ; Status DC Docusate Sodium (Colace) 100 mg BID PO Last administered on 12/25/16 08:18; Start 12/21/16 at 21:00 Enoxaparin Sodium (Lovenox Inj) 40 mg Q24H SQ Last administered on 12/24/16 16 :17; Start 12/21/16 at 16:00 Fat Emulsion Intravenous (Liposyn Iii 20% Inj) 250 ml @ 10 mls/hr Q24H IV Last administered on 12/24/16 21:58; Start 12/21/16 at 20:00 Magnesium Hydroxide (Milk Of Magnesia Liq) 30 ml DAILY PRN PO INDIGESTION OR UPSET STOMACH; Start 12/21/16 at 15:00 Metoclopramide HCl (Reglan Liq) 10 mg ACHS NG ; Start 12/21/16 at 16:00; Stop 12/21/16 at 16:00; Status DC Metoclopramide HCl (Reglan Inj) 10 mg Q8HR IV PUSH Last administered on 05:19; Start 12/21/16 at 22:00 Metoprolol Tartrate (Lopressor) 50 mg Q12HR NG Last administered on 12/25/16 08:18; Start 12/21/16 at 21:00 Multivitamins 10 ml/Folic Acid 1 mg/Amino Acids/ Electrolytes/ Dextrose 2,010.2 ml @ 83 mls/hr Q24H IV Last administered on 12/24/16 21:58; Start 12/21/16 at 20:00 Naloxone HCl (Narcan Inj) 0.4 mg UNSCH PRN IV SEE LABEL COMMENTS; Start at 15:00 Pantoprazole Sodium (Protonix Inj) 40 mg Q12H IV PUSH ; Start 12/21/16 at 15:00 ; Stop 12/21/16 at 15:28; Status DC Pantoprazole Sodium 40 mg 40 mg Q12H IV PUSH Last administered on 12/25/16 04: 00; Start 12/21/16 at 16:00 Patient Own Medication androgel 1.662 % APPLY... DAILY TOPICAL Last administered on 12/25/16 08:21; Start 12/24/16 at 09:00 Polyethylene Glycol 17 gm 17 gm DAILY PO Last administered on 12/25/16 08:18; Start 12/22/16 at 09:00 Sodium Chloride (NS Flush) 2 ml BID IV FLUSH Last administered on 12/25/16 08: 20; Start 12/21/16 at 21:00 Assessment and Plan Problem List: (1) Ileus Status: Acute Plan: improved continue with diet and nutritional supplementationn albumin and protein are both improved Assessment and Plan ileus resolving will return to [place] when medically cleared Discussed Condition With patient Discharge Planning return to [facility] Elias DO December 25, 2016 09:48
[2016-12-25 10:16] LABS: AUTOMATED NEUTROPHIL # 4.2 TH/MM3 (1.8-7.7); BASOPHIL % 0.5 % (0.0-2.0); EOSINOPHIL # 0.2 TH/MM3 (0-0.4); EOSINOPHIL % 2.9 % (0.0-4.0); HEMATOCRIT 28.5 % (35.0-46.0); LYMPH % 6.2 % (9.0-44.0); LYMPHOCYTE # 0.3 TH/MM3 (1.0-4.8); MEAN CELL VOLUME 92.1 FL (80.0-100.0); MEAN CORPUSCULAR HEMOGLOBIN 30.9 PG (27.0-34.0); MEAN CORPUSCULAR HGB CONC 33.6 % (32.0-36.0); MONO % 14.1 % (0.0-8.0); NEUT % 76.3 % (16.0-70.0); PLATELET COUNT 213 TH/MM3 (150-450); RED BLOOD COUNT 3.09 MIL/MM3 (4.00-5.30); RED CELL DISTRIBUTION WIDTH 15.4 % (11.6-17.2); WHITE BLOOD COUNT 5.5 TH/MM3 (4.0-11.0)
[2016-12-25 10:17] LABS: HEMO FLAGS AUTO DIFF
[2016-12-25 11:14] LABS: BANDS 2 % (0-6); EOSINOPHILS 4 % (0-4); MYELOCYTES 2 % (0-0); NEUTROPHIL # MANUAL DIFF 4.6 TH/MM3 (1.8-7.7); PLATELET ESTIMATE SMEAR NORMAL (NORMAL); PLATELET MORPHOLOGY NORMAL (NORMAL); POLYS (SEG NEUTROPHILS) 79 % (16-70); SCAN/DIFF FINAL DIFF MANUAL; WBC DIFF SAMPLE 100
[2016-12-25 12:00] VITALS: BP 155/66; PULSE 82; RESP 16; TEMP 96.3; O2SAT 94
[2016-12-25] MEDS: ENOXAPARIN SODIUM 40 MG/0.4 ML SYRINGE SQ SCH (15:39)
[2016-12-25 16:00] VITALS: BP 140/64; PULSE 92; RESP 16; TEMP 95.7; O2SAT 95
[2016-12-25 20:00] VITALS: BP 124/59; PULSE 59; RESP 18; TEMP 98; O2SAT 98
[2016-12-25] MEDS: CLINIMIX E 4.25/5 2000 mL- >42 mls/hr IV SCH ×3 (20:00)
[2016-12-25] MEDS: FAT EMULSION 20% INJ 250 ML (@10 mls/hr) IV SCH (20:00)
[2016-12-26 00:25] VITALS: BP 124/57; PULSE 100; RESP 17; TEMP 98.4; O2SAT 97
[2016-12-26] MEDS: PANTOPRAZOLE SODIUM 40 MG VIAL IV PUSH SCH ×2 (06:11→16:07)
[2016-12-26] MEDS: METOCLOPRAMIDE HCL 10 MG/2 ML VIAL IV PUSH SCH ×3 (06:11→22:16)
[2016-12-26] MEDS: ANDROGEL 1.62% TOPICAL SCH (06:56)
[2016-12-26] MEDS: DOCUSATE SODIUM 100 MG CAP PO SCH ×2 (07:40→21:00)
[2016-12-26] MEDS: CITALOPRAM HYDROBROMIDE 20 MG TAB PO SCH (07:40)
[2016-12-26] MEDS: METOPROLOL TARTRATE 50 MG TAB NG SCH ×2 (07:40→22:16)
[2016-12-26] MEDS: POLYETHYLENE GLYCOL 17 GM PKG PO SCH (07:40)
[2016-12-26] MEDS: SODIUM CHLORIDE 0.9% FLUSH 10 ML FLUSH IV FLUSH SCH ×2 (07:43→21:00)
[2016-12-26 08:00] VITALS: BP 146/63; PULSE 102; RESP 19; TEMP 98.4; O2SAT 97
--- NOTE | 2016-12-26 08:29 | HHI.PR ---
Subjective Remarks resting quietly moving bowels eating meals celexa started for depression Objective Vital Signs Date Time Temp Pulse Resp B/P Pulse Ox O2 Delivery O2 Flow Rate FiO2 12/26/16 00:25 98.4 100 17 124/57 97 12/25/16 20:00 98.0 59 18 124/59 98 12/25/16 16:00 95.7 92 16 140/64 95 12/25/16 12:00 96.3 82 16 155/66 94 I/O 12/25/16 12/25/16 12/25/16 12/26/16 12/26/16 12/26/16 07:00 15:00 23:00 07:00 15:00 23:00 Intake Total 120 ml 2373 ml 1076 ml 722 ml Balance 120 ml 2373 ml 1076 ml 722 ml Intake Oral 120 ml 250 ml 240 ml 180 ml TPN/PPN 1835 ml 744 ml 485 ml Lipid 288 ml 92 ml 57 ml # Voids 3 3 4 5 # Bowel Movements 0 1 2 Result Diagram: 12/25/16 1000 12/25/16 0620 Objective Remarks GENERAL: SKIN: Warm and dry. HEAD: Atraumatic. Normocephalic. EYES: Pupils equal and round. No scleral icterus. No injection or drainage. ENT: No nasal bleeding or discharge. Mucous membranes pink and moist. NECK: Trachea midline. No JVD. CARDIOVASCULAR: Regular rate and rhythm. RESPIRATORY: No accessory muscle use. Clear to auscultation. Breath sounds equal bilaterally. GASTROINTESTINAL: Abdomen soft, non-tender, nondistended. Hepatic and splenic margins not palpable.moving bowels now MUSCULOSKELETAL: Extremities without clubbing, cyanosis, or edema. No obvious deformities. NEUROLOGICAL: Awake and alert. No obvious cranial nerve deficits. Motor strength diminished throughout no focal deficits Normal speech. PSYCHIATRIC: Appropriate mood and affect; insight and judgment normal. Medications and IVs Inpatient Medications Acetaminophen (Tylenol) 650 mg Q6H PRN PO PAIN 1-3 AND/OR FEVER >101F; Start at 15:00 Albuterol/ Ipratropium (Duoneb Neb) 1 ampule Q2HR NEB PRN NEB SHORTNESS OF BREATH; Start 12/21/16 at 15:15; Stop 12/25/16 at 15:15; Status DC Bisacodyl (Dulcolax Supp) 1 mg DAILY PRN RECTAL CONSTIPATION; Start 12/21/16 at 15:00 Cefazolin Sodium/ Dextrose (Ancef 2 Gm Premix) 50 ml @ 100 mls/hr Q8H IV Last administered on 12/23/16 07:50; Start 12/21/16 at 16:00; Stop 12/23/16 at 10:04 ; Status DC Citalopram Hydrobromide (CeleXA) 20 mg DAILY PO Last administered on 12/26/16 07:40; Start 12/26/16 at 09:00 Docusate Sodium (Colace) 100 mg BID PO Last administered on 12/26/16 07:40; Start 12/21/16 at 21:00 Enoxaparin Sodium (Lovenox Inj) 40 mg Q24H SQ Last administered on 12/25/16 15 :39; Start 12/21/16 at 16:00 Fat Emulsion Intravenous (Liposyn Iii 20% Inj) 250 ml @ 10 mls/hr Q24H IV Last administered on 12/25/16 20:00; Start 12/21/16 at 20:00 Magnesium Hydroxide (Milk Of Magnesia Liq) 30 ml DAILY PRN PO INDIGESTION OR UPSET STOMACH; Start 12/21/16 at 15:00 Metoclopramide HCl (Reglan Liq) 10 mg ACHS NG ; Start 12/21/16 at 16:00; Stop 12/21/16 at 16:00; Status DC Metoclopramide HCl (Reglan Inj) 10 mg Q8HR IV PUSH Last administered on 06:11; Start 12/21/16 at 22:00 Metoprolol Tartrate (Lopressor) 50 mg Q12HR NG Last administered on 12/26/16 07:40; Start 12/21/16 at 21:00 Multivitamins 10 ml/Folic Acid 1 mg/Amino Acids/ Electrolytes/ Dextrose 2,010.2 ml @ 83 mls/hr Q24H IV Last administered on 12/25/16 20:00; Start 12/21/16 at 20:00 Naloxone HCl (Narcan Inj) 0.4 mg UNSCH PRN IV SEE LABEL COMMENTS; Start at 15:00 Pantoprazole Sodium (Protonix Inj) 40 mg Q12H IV PUSH ; Start 12/21/16 at 15:00 ; Stop 12/21/16 at 15:28; Status DC Pantoprazole Sodium 40 mg 40 mg Q12H IV PUSH Last administered on 12/26/16 06: 11; Start 12/21/16 at 16:00 Patient Own Medication androgel 1.662 % APPLY... DAILY TOPICAL Last administered on 12/25/16 08:21; Start 12/24/16 at 09:00 Polyethylene Glycol 17 gm 17 gm DAILY PO Last administered on 12/26/16 07:40; Start 12/22/16 at 09:00 Sodium Chloride (NS Flush) 2 ml BID IV FLUSH Last administered on 12/26/16 07: 43; Start 12/21/16 at 21:00 Assessment and Plan Problem List: (1) Ileus Status: Acute Plan: improved continue with diet and nutritional supplementationn albumin and protein are both improved Assessment and Plan ileus resolving will return to [place] when medically cleared Discussed Condition With patient and nursing Discharge Planning dc to [place] when bed available eating better w3ill continue TPN 24 48 hours then dc if still eating well and moving bowels family concerned about depression celchristianoa started Nestor Kendrick DO December 26, 2016 08:29
[2016-12-26 12:00] VITALS: BP 170/93; PULSE 85; RESP 14; TEMP 97.6; O2SAT 95
[2016-12-26 16:00] VITALS: BP 159/71; PULSE 88; RESP 14; TEMP 96.6; O2SAT 95
[2016-12-26] MEDS: ENOXAPARIN SODIUM 40 MG/0.4 ML SYRINGE SQ SCH (16:07)
[2016-12-26 20:00] VITALS: BP 146/69; PULSE 92; RESP 17; TEMP 98.9; O2SAT 97
[2016-12-26] MEDS: CLINIMIX E 4.25/5 2000 mL- >42 mls/hr IV SCH ×3 (20:00)
[2016-12-26] MEDS: FAT EMULSION 20% INJ 250 ML (@10 mls/hr) IV SCH (20:00)
[2016-12-27] VITALS: BP 156/80; PULSE 80; RESP 18; TEMP 98.9; O2SAT 96
[2016-12-27] MEDS: METOCLOPRAMIDE HCL 10 MG/2 ML VIAL IV PUSH SCH ×3 (05:30→21:10)
[2016-12-27] MEDS: PANTOPRAZOLE SODIUM 40 MG VIAL IV PUSH SCH ×2 (05:30→16:10)
[2016-12-27 06:44] LABS: AUTOMATED NEUTROPHIL # 3.9 TH/MM3 (1.8-7.7); BASOPHIL % 0.5 % (0.0-2.0); EOSINOPHIL # 0.2 TH/MM3 (0-0.4); EOSINOPHIL % 3.1 % (0.0-4.0); LYMPH % 8.2 % (9.0-44.0); LYMPHOCYTE # 0.4 TH/MM3 (1.0-4.8); MEAN CELL VOLUME 93.8 FL (80.0-100.0); MEAN CORPUSCULAR HEMOGLOBIN 31.3 PG (27.0-34.0); MEAN CORPUSCULAR HGB CONC 33.3 % (32.0-36.0); NEUT % 74.2 % (16.0-70.0); PLATELET COUNT 210 TH/MM3 (150-450); RED BLOOD COUNT 2.56 MIL/MM3 (4.00-5.30); RED CELL DISTRIBUTION WIDTH 16.1 % (11.6-17.2); WHITE BLOOD COUNT 5.2 TH/MM3 (4.0-11.0)
[2016-12-27 07:02] LABS: HEMO FLAGS AUTO DIFF
[2016-12-27 07:05] LABS: ANION GAP 8 MEQ/L (5-15); AST (GOT) 22 U/L (15-37); BICARBONATE 24.5 MEQ/L (21.0-32.0); BLOOD UREA NITROGEN 19 MG/DL (7-18); CHLORIDE 101 MEQ/L (98-107); GLOMERULAR FILTRATION RATE 274 ML/MIN (>89); POTASSIUM 4.3 MEQ/L (3.5-5.1); SODIUM (NA) 133 MEQ/L (136-145)
[2016-12-27 07:11] LABS: ALKALINE PHOSPHATASE 97 U/L (45-117); ALT (GPT) 18 U/L (10-53); TOTAL BILIRUBIN ADULT 0.4 MG/DL (0.2-1.0)
[2016-12-27 08:00] VITALS: BP 131/64; PULSE 85; RESP 20; TEMP 97.3; O2SAT 96
[2016-12-27] MEDS: DOCUSATE SODIUM 100 MG CAP PO SCH ×2 (09:08→21:00)
[2016-12-27] MEDS: POLYETHYLENE GLYCOL 17 GM PKG PO SCH (09:09)
[2016-12-27] MEDS: METOPROLOL TARTRATE 50 MG TAB NG SCH ×2 (09:09→21:00)
[2016-12-27] MEDS: ANDROGEL 1.62% TOPICAL SCH (09:09)
[2016-12-27] MEDS: CITALOPRAM HYDROBROMIDE 20 MG TAB PO SCH (09:09)
[2016-12-27] MEDS: SODIUM CHLORIDE 0.9% FLUSH 10 ML FLUSH IV FLUSH SCH ×2 (09:10→21:00)
[2016-12-27 10:23] LABS: BANDS 2 % (0-6); EOSINOPHILS 1 % (0-4); MYELOCYTES 2 % (0-0); PLATELET ESTIMATE SMEAR NORMAL (NORMAL); PLATELET MORPHOLOGY NORMAL (NORMAL); POLYS (SEG NEUTROPHILS) 73 % (16-70); SCAN/DIFF FINAL DIFF MANUAL; WBC DIFF SAMPLE 100
--- NOTE | 2016-12-27 11:55 | HHI.PR ---
Subjective Remarks resting quietly a bit more alert not eating much though TPN continues Objective Vital Signs Date Time Temp Pulse Resp B/P Pulse Ox O2 Delivery O2 Flow Rate FiO2 12/27/16 08:00 97.3 85 20 131/64 96 12/27/16 00:00 98.9 80 18 156/80 96 12/26/16 20:00 98.9 92 17 146/69 97 12/26/16 16:00 96.6 88 14 159/71 95 12/26/16 12:00 97.6 85 14 170/93 95 I/O 12/26/16 12/26/16 12/26/16 12/27/16 12/27/16 12/27/16 07:00 15:00 23:00 07:00 15:00 23:00 Intake Total 722 ml 859 ml 1243 ml 869 ml Output Total 75 ml Balance 722 ml 784 ml 1243 ml 869 ml Intake Oral 180 ml 275 ml 360 ml 240 ml TPN/PPN 485 ml 522 ml 785 ml 562 ml Lipid 57 ml 62 ml 98 ml 67 ml Emesis 75 ml # Voids 5 6 4 5 # Bowel Movements 2 4 3 Result Diagram: 12/27/16 0615 12/27/16 0615 Other Results albumin and potein remain low hgb 8 eating encouraged Objective Remarks GENERAL: SKIN: Warm and dry. HEAD: Atraumatic. Normocephalic. EYES: Pupils equal and round. No scleral icterus. No injection or drainage. ENT: No nasal bleeding or discharge. Mucous membranes pink and moist. NECK: Trachea midline. No JVD. CARDIOVASCULAR: Regular rate and rhythm. RESPIRATORY: No accessory muscle use. Clear to auscultation. Breath sounds equal bilaterally. GASTROINTESTINAL: Abdomen soft, non-tender, nondistended. Hepatic and splenic margins not palpable.moving bowels now MUSCULOSKELETAL: Extremities without clubbing, cyanosis, or edema. No obvious deformities. NEUROLOGICAL: Awake and alert. No obvious cranial nerve deficits. Motor strength diminished throughout no focal deficits Normal speech. PSYCHIATRIC: Appropriate mood and affect; insight and judgment normal. Medications and IVs Current Medications Sodium Chloride (NS Flush) 2 ml UNSCH PRN IV FLUSH FLUSH AFTER USING IV ACCESS ; Start 12/21/16 at 15:00 Sodium Chloride (NS Flush) 2 ml BID IV FLUSH Last administered on 12/27/16 09: 10; Start 12/21/16 at 21:00 Naloxone HCl (Narcan Inj) 0.4 mg UNSCH PRN IV SEE LABEL COMMENTS; Start at 15:00 Acetaminophen (Tylenol) 650 mg Q6H PRN PO PAIN 1-3 AND/OR FEVER >101F; Start at 15:00 Bisacodyl (Dulcolax Supp) 1 mg DAILY PRN RECTAL CONSTIPATION; Start 12/21/16 at 15:00 Docusate Sodium (Colace) 100 mg BID PO Last administered on 12/26/16 07:40; Start 12/21/16 at 21:00 Albuterol/ Ipratropium (Duoneb Neb) 1 ampule Q2HR NEB PRN NEB SHORTNESS OF BREATH; Start 12/21/16 at 15:15; Stop 12/25/16 at 15:15; Status DC Magnesium Hydroxide (Milk Of Magnesia Liq) 30 ml DAILY PRN PO INDIGESTION OR UPSET STOMACH; Start 12/21/16 at 15:00 Metoprolol Tartrate (Lopressor) 50 mg Q12HR NG Last administered on 12/27/16 09:09; Start 12/21/16 at 21:00 Metoclopramide HCl (Reglan Liq) 10 mg ACHS NG ; Start 12/21/16 at 16:00; Stop 12/21/16 at 16:00; Status DC Pantoprazole Sodium 40 mg 40 mg Q12H IV PUSH Last administered on 12/27/16 05: 30; Start 12/21/16 at 16:00 Cefazolin Sodium/ Dextrose (Ancef 2 Gm Premix) 50 ml @ 100 mls/hr Q8H IV Last administered on 12/23/16 07:50; Start 12/21/16 at 16:00; Stop 12/23/16 at 10:04 ; Status DC Enoxaparin Sodium (Lovenox Inj) 40 mg Q24H SQ Last administered on 12/26/16 16 :07; Start 12/21/16 at 16:00 Metoclopramide HCl (Reglan Inj) 10 mg Q8HR IV PUSH Last administered on 05:30; Start 12/21/16 at 22:00 Pantoprazole Sodium (Protonix Inj) 40 mg Q12H IV PUSH ; Start 12/21/16 at 15:00 ; Stop 12/21/16 at 15:28; Status DC Polyethylene Glycol 17 gm 17 gm DAILY PO Last administered on 12/26/16 07:40; Start 12/22/16 at 09:00 Multivitamins 10 ml/Folic Acid 1 mg/Amino Acids/ Electrolytes/ Dextrose 2,010.2 ml @ 83 mls/hr Q24H IV Last administered on 12/26/16 20:00; Start 12/21/16 at 20:00 Fat Emulsion Intravenous 250 ml @ 10 mls/hr Q24H IV Last administered on 20:00; Start 12/21/16 at 20:00 Multivitamins 10 ml/Folic Acid 1 mg/Amino Acids/ Electrolytes/ Dextrose 2,010.2 ml @ 83 mls/hr Q24H IV-[facility]EN[facility] ; Start 12/23/16 at 20:00; Status Cancel Fat Emulsion Intravenous (Liposyn Iii 20% Inj) 250 ml @ 10 mls/hr Q24H IV- [facility] ; Start 12/23/16 at 20:00; Status Cancel Patient Own Medication androgel 1.662 % APPLY... DAILY TOPICAL ; Start 12/24/16 at 09:00; Stop 12/24/16 at 09:00; Status DC Patient Own Medication androgel 1.662 % APPLY... DAILY TOPICAL Last administered on 12/27/16 09:09; Start 12/24/16 at 09:00 Citalopram Hydrobromide (CeleXA) 20 mg DAILY PO Last administered on 12/27/16 09:09; Start 12/26/16 at 09:00 Assessment and Plan Problem List: (1) Ileus Status: Acute Plan: improved continue with diet and nutritional supplementationn albumin and protein are both improved Assessment and Plan ileus resolving will return to [place] when medically cleared Discussed Condition With pt and family will need to dc TPN to return to rehab Discharge Planning to [place] once TPN dcd Nestor Kendrick DO December 27, 2016 11:55
[2016-12-27 12:00] VITALS: BP 128/72; PULSE 83; RESP 18; TEMP 97.6; O2SAT 96
[2016-12-27] MEDS: ENOXAPARIN SODIUM 40 MG/0.4 ML SYRINGE SQ SCH (16:10)
[2016-12-27 20:00] VITALS: BP 107/54; PULSE 92; RESP 17; TEMP 98.3; O2SAT 95
[2016-12-27] MEDS: CLINIMIX E 4.25/5 2000 mL- >42 mls/hr IV SCH ×3 (21:09)
[2016-12-27] MEDS: FAT EMULSION 20% INJ 250 ML (@10 mls/hr) IV SCH (21:09)
[2016-12-28] VITALS: BP 100/56; PULSE 84; RESP 17; TEMP 97.6; O2SAT 96
[2016-12-28] MEDS: PANTOPRAZOLE SODIUM 40 MG VIAL IV PUSH SCH ×2 (04:25→17:41)
[2016-12-28] MEDS: METOCLOPRAMIDE HCL 10 MG/2 ML VIAL IV PUSH SCH ×3 (04:25→20:37)
--- NOTE | 2016-12-28 07:24 | HHI.PR ---
Subjective Remarks Patient denies any CP or SOB. NG removed denies nausea however poor intake Objective Vital Signs Date Time Temp Pulse Resp B/P Pulse Ox O2 Delivery O2 Flow Rate FiO2 12/28/16 00:00 97.6 84 17 100/56 96 12/27/16 20:00 98.3 92 17 107/54 95 12/27/16 12:00 97.6 83 18 128/72 96 12/27/16 08:00 97.3 85 20 131/64 96 I/O 12/27/16 12/27/16 12/27/16 12/28/16 12/28/16 12/28/16 07:00 15:00 23:00 07:00 15:00 23:00 Intake Total 869 ml 796 ml 889 ml 1474 ml Balance 869 ml 796 ml 889 ml 1474 ml Intake Oral 240 ml 240 ml 240 ml IV Total 796 ml TPN/PPN 562 ml 579 ml 1163 ml Lipid 67 ml 70 ml 71 ml # Voids 5 1 3 # Bowel Movements 3 Result Diagram: 12/27/1661412/27/16614 Objective Remarks GENERAL: Alert and cooperative. Appears weak SKIN: Warm and dry. Back wound site without redness HEAD: Normocephalic. EYES: No scleral icterus. No injection or drainage. NECK: Supple, trachea midline. No JVD or lymphadenopathy. CARDIOVASCULAR: Regular rate and rhythm without murmurs, gallops, or rubs. RESPIRATORY: Breath sounds equal bilaterally. No accessory muscle use. GASTROINTESTINAL: Abdomen soft, non-tender, nondistended. MUSCULOSKELETAL: No cyanosis, or edema. BACK: Nontender without obvious deformity. No CVA tenderness. Assessment and Plan Problem List: (1) Ileus Status: Acute Plan: GI consulted and managing. On IV reglan, NG tube removed and diet advanced to full liquid. Patient with poor intake. Fluids encouraged. Patient was seen previously and again now for ileus constipation and fecal impaction but this all appears to be resolving at this point with good bowel movements after several enemas and a GoLYTELY prep Abdominal KUB on the 24th with decrease in amount of contrast with bowel from previous study. TPN halved today to see if it will stimulate her appetite (2) HTN (hypertension) Status: Chronic Plan: Blood pressure on lower side at 100/56. Metoprolol halved. Asymptomatic (3) Nausea & vomiting Status: Acute Plan: Improving. NG tube clamped today. On reglan ATC. tolerated clear liquid and nausea is improving. (4) Poor appetite Status: Acute Plan: Regular diet. On TPN which has been halved with Dietary consult (5) Dural tear Status: Acute Plan: Healing well. Site free on redness or drainage. On antibiotics per ID. Dr. Melissa consulted to follow along. Repeat lumbar scan with persistent fluid collection. (6) Debility Status: Acute Plan: PT ordered daily. Patient is a total lift (7) Anemia Status: Acute Plan: HGB at 8.0 yesterday 9.6 previous day. Will ordere CBC for today. will monitor Assessment and Plan Assessment and plan discussed with Dr. Kendrick Discussed Condition With Nursing Discharge Planning SNF Physician Attestation I and the ANTENNA MACHINE OPERATOR have both examined this patient and reviewed this note and I agree with these findings and plan of care. Dayanara Sams ANTENNA MACHINE OPERATOR December 28, 2016 07:24
[2016-12-28 08:00] VITALS: BP 152/74; PULSE 93; RESP 20; TEMP 96; O2SAT 95
[2016-12-28 08:37] LABS: AUTOMATED NEUTROPHIL # 3.8 TH/MM3 (1.8-7.7); BASOPHIL % 0.6 % (0.0-2.0); EOSINOPHIL # 0.1 TH/MM3 (0-0.4); EOSINOPHIL % 2.4 % (0.0-4.0); HEMO FLAGS DIFF FINAL; LYMPH % 7.8 % (9.0-44.0); LYMPHOCYTE # 0.4 TH/MM3 (1.0-4.8); MEAN CELL VOLUME 93.2 FL (80.0-100.0); MEAN CORPUSCULAR HGB CONC 33.2 % (32.0-36.0); MONO % 13.3 % (0.0-8.0); NEUT % 75.9 % (16.0-70.0); PLATELET COUNT 226 TH/MM3 (150-450); RED BLOOD COUNT 2.69 MIL/MM3 (4.00-5.30); RED CELL DISTRIBUTION WIDTH 15.5 % (11.6-17.2)
[2016-12-28 08:51] LABS: BICARBONATE 25.3 MEQ/L (21.0-32.0); POTASSIUM 4.5 MEQ/L (3.5-5.1)
[2016-12-28] MEDS: ANDROGEL 1.62% TOPICAL SCH (09:00)
[2016-12-28] MEDS ORDERED: METOPROLOL TARTRATE 50 MG TAB NG SCH (09:00)
[2016-12-28] MEDS: METOPROLOL TARTRATE 25 MG TAB NG SCH ×2 (10:01→21:00)
[2016-12-28] MEDS: CITALOPRAM HYDROBROMIDE 20 MG TAB PO SCH (10:01)
[2016-12-28] MEDS: DOCUSATE SODIUM 100 MG CAP PO SCH ×2 (10:01→20:37)
[2016-12-28] MEDS: SODIUM CHLORIDE 0.9% FLUSH 10 ML FLUSH IV FLUSH SCH ×2 (10:02→20:33)
[2016-12-28] MEDS: POLYETHYLENE GLYCOL 17 GM PKG PO SCH (10:02)
[2016-12-28 12:00] VITALS: BP 155/68; PULSE 94; RESP 20; TEMP 98.3; O2SAT 96
[2016-12-28 16:00] VITALS: BP 147/67; PULSE 84; RESP 18; TEMP 97.6; O2SAT 98
[2016-12-28] MEDS: ENOXAPARIN SODIUM 40 MG/0.4 ML SYRINGE SQ SCH (17:41)
[2016-12-28] MEDS ORDERED: MULTIVITAMIN INJ 10 ML, FOLIC ACID INJ 1 MG in AMINO ACID IN D5W W/ELECTROLYT 1,000 ML IV SCH ×3 (20:00)
[2016-12-28] MEDS: FAT EMULSION 20% INJ 250 ML (@10 mls/hr) IV SCH (20:32)
[2016-12-28] MEDS: LACTOBACILLUS ACIDOPHILUS TAB PO SCH (20:37)
[2016-12-28 21:00] VITALS: BP 118/57; PULSE 93; RESP 17; TEMP 97.2; O2SAT 97
[2016-12-29] VITALS: BP 138/62; PULSE 93; RESP 17; TEMP 96.4; O2SAT 96
[2016-12-29] MEDS: PANTOPRAZOLE SODIUM 40 MG VIAL IV PUSH SCH (03:18)
[2016-12-29] MEDS: METOCLOPRAMIDE HCL 10 MG/2 ML VIAL IV PUSH SCH (06:21)
[2016-12-29 07:13] LABS: AUTOMATED NEUTROPHIL # 3.6 TH/MM3 (1.8-7.7); BASOPHIL % 0.4 % (0.0-2.0); EOSINOPHIL # 0.1 TH/MM3 (0-0.4); EOSINOPHIL % 2.2 % (0.0-4.0); HEMATOCRIT 23.4 % (35.0-46.0); HEMO FLAGS DIFF FINAL; LYMPH % 7.7 % (9.0-44.0); LYMPHOCYTE # 0.4 TH/MM3 (1.0-4.8); MEAN CELL VOLUME 94.8 FL (80.0-100.0); MEAN CORPUSCULAR HEMOGLOBIN 31.6 PG (27.0-34.0); MEAN CORPUSCULAR HGB CONC 33.3 % (32.0-36.0); MONO % 12.6 % (0.0-8.0); NEUT % 77.1 % (16.0-70.0); PLATELET COUNT 219 TH/MM3 (150-450); RED BLOOD COUNT 2.47 MIL/MM3 (4.00-5.30); RED CELL DISTRIBUTION WIDTH 15.8 % (11.6-17.2); WHITE BLOOD COUNT 4.7 TH/MM3 (4.0-11.0)
[2016-12-29 07:20] LABS: POTASSIUM 4.3 MEQ/L (3.5-5.1)
[2016-12-29 08:00] VITALS: BP 124/58; PULSE 96; RESP 18; TEMP 98.5; O2SAT 96
[2016-12-29] MEDS: POLYETHYLENE GLYCOL 17 GM PKG PO SCH (08:31)
[2016-12-29] MEDS: METOPROLOL TARTRATE 25 MG TAB NG SCH ×2 (08:31→21:05)
[2016-12-29] MEDS: SODIUM CHLORIDE 0.9% FLUSH 10 ML FLUSH IV FLUSH SCH ×2 (08:31→21:05)
[2016-12-29] MEDS: DOCUSATE SODIUM 100 MG CAP PO SCH ×2 (08:31→21:00)
[2016-12-29] MEDS: CITALOPRAM HYDROBROMIDE 20 MG TAB PO SCH (08:31)
[2016-12-29] MEDS: LACTOBACILLUS ACIDOPHILUS TAB PO SCH ×2 (08:31→21:05)
[2016-12-29] MEDS: ANDROGEL 1.62% TOPICAL SCH (08:32)
--- NOTE | 2016-12-29 09:43 | HHI.PR ---
Subjective Remarks Patient denies any CP or SOB. Denies nausea . Intake per nursing is that she ate 75 % of breakfast, 50% of lunch and dinner. Objective Vital Signs Date Time Temp Pulse Resp B/P Pulse Ox O2 Delivery O2 Flow Rate FiO2 12/29/16 08:00 98.5 96 18 124/58 96 12/29/16 00:00 96.4 93 17 138/62 96 12/28/16 21:00 97.2 93 17 118/57 97 12/28/16 16:00 97.6 84 18 147/67 98 12/28/16 12:00 98.3 94 20 155/68 96 I/O 12/28/16 12/28/16 12/28/16 12/29/16 12/29/16 12/29/16 07:00 15:00 23:00 07:00 15:00 23:00 Intake Total 1474 ml 1313 ml 746 ml Output Total 250 ml Balance 1474 ml 1063 ml 746 ml Intake Oral 240 ml 240 ml 240 ml TPN/PPN 1163 ml 911 ml 409 ml Lipid 71 ml 162 ml 97 ml Output Urine Total 250 ml # Voids 3 2 1 # Bowel Movements 1 Result Diagram: 12/29/1630 12/29/16 0630 Objective Remarks GENERAL: Alert and cooperative. Appears weak SKIN: Warm and dry. Back wound site without redness NECK: Supple, trachea midline. No JVD or lymphadenopathy. CARDIOVASCULAR: Regular rate and rhythm without murmurs, gallops, or rubs. RESPIRATORY: Breath sounds equal bilaterally. No accessory muscle use. GASTROINTESTINAL: Abdomen soft, non-tender, nondistended. MUSCULOSKELETAL: No cyanosis, or edema. BACK: Nontender without obvious deformity. No CVA tenderness. Medications and IVs Current Medications Medications (Trade) Dose Ordered Sig/Aleja Route Start Time Stop Time Status Last Admin (NS Flush) 2 ml UNSCH PRN IV FLUSH 12/21/16 15:00 12/27/16 14:14 (NS Flush) 2 ml BID IV FLUSH 12/21/16 21:00 12/29/16 08:31 (Narcan Inj) 0.4 mg UNSCH PRN IV 12/21/16 15:00 (Tylenol) 650 mg Q6H PRN PO 12/21/16 15:00 12/28/16 06:01 (Dulcolax Supp) 1 mg DAILY PRN RECTAL 12/21/16 15:00 (Colace) 100 mg BID PO 12/21/16 21:00 12/29/16 08:31 (Milk Of Magnesia Liq) 30 ml DAILY PRN PO 12/21/16 15:00 (Protonix Inj) 40 mg Q12H IV PUSH 12/21/16 16:00 12/29/16 03:18 (Lovenox Inj) 40 mg Q24H SQ 12/21/16 16:00 12/28/16 17:41 (Reglan Inj) 10 mg Q8HR IV PUSH 12/21/16 22:00 12/29/16 06:21 Polyethylene Glycol 17 gm 17 gm DAILY PO 12/22/16 09:00 12/28/16 10:02 (Liposyn Iii 20% Inj) 250 ml @ 10 mls/hr Q24H IV 12/21/16 20:00 12/28/16 20:32 Patient Own Medication androgel 1.662 % APPLY... DAILY TOPICAL 12/24/16 09:00 12/29/16 08:32 (CeleXA) 20 mg DAILY PO 12/26/16 09:00 12/29/16 08:31 (Lopressor) 25 mg Q12HR NG 12/28/16 09:00 12/29/16 08:31 Lactobacillus Acidophilus 1 tab 1 tab Q12HR PO 12/28/16 21:00 12/29/16 08:31 (Mvi-12 Inj/ Folvite Inj/ Clinimix E 4.25/5) 1,010.2 ml @ 42 mls/hr Q24H IV 12/28/16 20:00 12/28/16 20:33 Assessment and Plan Problem List: (1) Ileus Status: Acute Plan: GI consulted and has now signed off. On IV reglan, NG tube removed and diet advanced. Patient PO intake improving. Fluids encouraged. TPN halved yesterday with will discontinue today. (2) HTN (hypertension) Status: Chronic Plan: Continue current therapy blood pressure 124/58 (3) Nausea & vomiting Status: Acute Plan: Improving. NG tube clamped today. On reglan ATC. tolerated clear liquid and nausea is improving. (4) Poor appetite Status: Acute Plan: Regular diet. Intake improving. TPN discontinued (5) Dural tear Status: Acute Plan: Healing well. Site free on redness or drainage. Antibiotics completed. Repeat imaging with fluid collection likely anomaly as a result of surgeries. Clinically appears improved with no fever. Normal WBC and CRP down trended. (6) Debility Status: Acute Plan: PT ordered daily. Patient is a total lift (7) Anemia Status: Acute Plan: HGB at 7.8. Monitoring recheck in AM (8) Hyponatremia Status: Acute Plan: Sodium at 131 will monitor with recheck in AM Assessment and Plan Assessment and plan discussed with Dr. Kendrick Discussed Condition With Nursing. Discharge Planning Skilled facility Physician Attestation I and the STRAWBERRY GROWER have both examined this patient and reviewed this note and I agree with these findings and plan of care. Dayanara Sams. [facility] December 29, 2016 09:42
[2016-12-29 12:00] VITALS: BP 147/83; PULSE 109; RESP 20; TEMP 97.5; O2SAT 95
[2016-12-29] MEDS: METOCLOPRAMIDE HCL 10 MG TAB PO SCH ×3 (12:45→21:06)
[2016-12-29 16:00] VITALS: BP 122/59; PULSE 91; RESP 20; TEMP 97.7; O2SAT 95
[2016-12-29] MEDS: ENOXAPARIN SODIUM 40 MG/0.4 ML SYRINGE SQ SCH (16:43)
[2016-12-29 20:00] VITALS: BP 143/64; PULSE 96; RESP 17; TEMP 97.2; O2SAT 96
[2016-12-29] MEDS: PANTOPRAZOLE SOD 40 MG DELAYED RELEASE TAB PO SCH (21:05)
[2016-12-30 00:09] VITALS: BP 145/67; PULSE 89; RESP 17; TEMP 97.9; O2SAT 97
[2016-12-30] MEDS: METOCLOPRAMIDE HCL 10 MG TAB PO SCH ×2 (06:34→12:20)
[2016-12-30 08:00] VITALS: BP 125/60; PULSE 91; RESP 16; TEMP 97; O2SAT 95
[2016-12-30 08:48] LABS: AUTOMATED NEUTROPHIL # 3.2 TH/MM3 (1.8-7.7); BASOPHIL % 0.8 % (0.0-2.0); EOSINOPHIL # 0.1 TH/MM3 (0-0.4); EOSINOPHIL % 2.6 % (0.0-4.0); HEMATOCRIT 25.3 % (35.0-46.0); HEMO FLAGS DIFF FINAL; LYMPH % 8.7 % (9.0-44.0); LYMPHOCYTE # 0.4 TH/MM3 (1.0-4.8); MEAN CELL VOLUME 93.5 FL (80.0-100.0); MEAN CORPUSCULAR HEMOGLOBIN 30.8 PG (27.0-34.0); MONO % 14.3 % (0.0-8.0); NEUT % 73.6 % (16.0-70.0); PLATELET COUNT 229 TH/MM3 (150-450); RED CELL DISTRIBUTION WIDTH 16.3 % (11.6-17.2); WHITE BLOOD COUNT 4.3 TH/MM3 (4.0-11.0)
[2016-12-30] MEDS: DOCUSATE SODIUM 100 MG CAP PO SCH (09:00)
[2016-12-30] MEDS: POLYETHYLENE GLYCOL 17 GM PKG PO SCH (09:00)
[2016-12-30] MEDS: ANDROGEL 1.62% TOPICAL SCH (09:00)
[2016-12-30] MEDS: CITALOPRAM HYDROBROMIDE 20 MG TAB PO SCH (09:08)
[2016-12-30] MEDS: METOPROLOL TARTRATE 25 MG TAB NG SCH (09:08)
[2016-12-30] MEDS: PANTOPRAZOLE SOD 40 MG DELAYED RELEASE TAB PO SCH (09:08)
[2016-12-30] MEDS: LACTOBACILLUS ACIDOPHILUS TAB PO SCH (09:09)
[2016-12-30] MEDS: SODIUM CHLORIDE 0.9% FLUSH 10 ML FLUSH IV FLUSH SCH (09:15)
[2016-12-30 09:28] LABS: BICARBONATE 25.4 MEQ/L (21.0-32.0)
[2016-12-30] MEDS ORDERED: ALTEPLASE RECOMBINANT 2 MG VIAL INTRACATH ONE (10:45)
[2016-12-30 12:00] VITALS: BP 144/63; PULSE 82; RESP 15; TEMP 97.7; O2SAT 96
[2016-12-30] MEDS ORDERED: POLY17S PO (12:24)
[2016-12-30] MEDS ORDERED: METO25TA3 PO (12:24)
[2016-12-30] MEDS ORDERED: PROT40TA PO (12:24)
[2016-12-30] MEDS ORDERED: LACT PO (12:24)
[2016-12-30] MEDS ORDERED: METO10TA PO (12:24)
--- NOTE | 2016-12-30 12:34 | HHI.DS ---
Discharge Summary Admission Date December 21, 2016 at 14:32 Discharge Date: Dec 30, 2016 Admitting Diagnosis (1) Ileus (2) Debility Brief History 86 Year old female with pmhx of metastatic endometrial cancer diagnosed 5 years ago. Last PET scan per documentation showed bony metastasis to skull and rue. He was in her usual state of health that consisted of free ambulation and independence with ADLs until 11/27/16 until about 2 weeks ago when she had a L4- L5 laminectomy at [facility] in [place]. She presented to to [facility] on 11/05/16 with nausea, vomiting, low back pain, chills. She was found to have leukocytosis, sepsis, metaboloic encephalopathy. Developed urinary retention and baird was placed. She was transferred to ICU. Developed respiratory failure requiring intubation. eventually extubated .CT spine showed fluid L4 fluid collection. Dr. Melissa - neurosurgery was consulted. MRI spine revealed - Fusion C6-C7, Severe canal stenosis with cord compression C5-C6, T2 suspicious for metastatic disease, Fluid collection at L4 3.4x3.1x3.9. MRI brain showed abnormal signal occipital horns. no acute infarct. Dr. Nina ID was consulted for epidural abcess and treated initially with ceftazidime, flagyl iv, and IV vancomycin. Lumbar drain placed in IR drained 8 cc bloody, cloudy drainage. The patient was taken to the OR twice. On 11/12/16 she had a debridement and sub arachnoid drain. On 11/26/16 she s/p debridement, partial closure of lumbar wound, and lumbar drain placement for epidural abscess and dural tear with CSF leak. Blood cultures 11/07/16 negative x 5 days, CSF culture negative, L4-L5 Culture negative. Dr. Nina changed to antibiotics to Ancef IV for 8-12 weeks from last surgery date (11/26/16). Dr. Hale GI was consulted and signed off. Echo was done that showed ef 60-65%. Patient then went to [facility] for therapy. During her course she developed nausea, vomiting, and adominal discomfort. GI was consulted. CT 12-17-16 small bowel ileus, constipation, moderate ascites. EGD 12-17-16 --> esophagus has free reflux and infalmmation, but no geoff seen, stomach full of bilious liquid, no ulcerations or erosions, pylorus widely patent duodenum, moderate bilious liquid aspirated. 12-18-16 SBxr --> prolonged small bowel transit time, nonspecific mild to moderate diffuse small bowel distention, indicate ileus, prominent reflux contrast into proximal thoracic esophagus. KUB 12-19-16 --> decreasing small bowel distention/ileus. Patient transferred to acute hospitalization for further evaluation and that patient is unable to participate in PT. - CBC/BMP: 12/30/16 0805 12/30/16 0805 Significant Findings Laboratory Tests Test 12/28/16 12/29/16 12/30/16 08:14 06:30 08:05 Red Blood Count 2.69 MIL/MM3 2.47 MIL/MM3 2.70 MIL/MM3 (4.00-5.30) (4.00-5.30) (4.00-5.30) Hemoglobin 8.3 GM/DL 7.8 GM/DL 8.3 GM/DL (11.6-15.3) (11.6-15.3) (11.6-15.3) Hematocrit 25.0 % 23.4 % 25.3 % (35.0-46.0) (35.0-46.0) (35.0-46.0) Neutrophils (%) (Auto) 75.9 % 77.1 % 73.6 % (16.0-70.0) (16.0-70.0) (16.0-70.0) Lymphocytes (%) (Auto) 7.8 % 7.7 % 8.7 % (9.0-44.0) (9.0-44.0) (9.0-44.0) Monocytes (%) (Auto) 13.3 % 12.6 % 14.3 % (0.0-8.0) (0.0-8.0) (0.0-8.0) Lymphocytes # (Auto) 0.4 TH/MM3 0.4 TH/MM3 0.4 TH/MM3 (1.0-4.8) (1.0-4.8) (1.0-4.8) Sodium Level 132 MEQ/L 131 MEQ/L 131 MEQ/L (136-145) (136-145) (136-145) Blood Urea Nitrogen 22 MG/DL (7-18) 20 MG/DL (7-18) Creatinine 0.41 MG/DL 0.39 MG/DL 0.41 MG/DL (0.50-1.00) (0.50-1.00) (0.50-1.00) Random Glucose 121 MG/DL (74-106) Calcium Level 8.2 MG/DL (8.5-10.1) PE at Discharge GENERAL: Alert and cooperative. Appears weak SKIN: Warm and dry. Back wound site without redness NECK: Supple, trachea midline. No JVD or lymphadenopathy. CARDIOVASCULAR: Regular rate and rhythm without murmurs, gallops, or rubs. RESPIRATORY: Breath sounds equal bilaterally. No accessory muscle use. GASTROINTESTINAL: Abdomen soft, non-tender, nondistended. MUSCULOSKELETAL: No cyanosis, or edema. BACK: Nontender without obvious deformity. No CVA tenderness. Hospital Course 86 Year old female with pmhx of metastatic endometrial cancer diagnosed 5 years ago with metastasis to bone and spine. She is S/P L4-L5 laminectomy at [facility] in [place]. She presented to to [facility] on 11/05/16 with nausea, vomiting, low back pain, chills. She was found to have leukocytosis, sepsis, metaboloic encephalopathy.CT spine showed fluid L4 fluid collection. Dr. Melissa - neurosurgery was consulted. MRI spine revealed - Fusion C6-C7, Severe canal stenosis with cord compression C5-C6, T2 suspicious for metastatic disease, Fluid collection at L4 3.4x3.1x3.9. Dr. Nina ID was consulted for epidural abcess and treated IV antibiotics. The patient was taken to the OR twice. On 11/12/16 she had a debridement and sub arachnoid drain. On she s/p debridement, partial closure of lumbar wound, and lumbar drain placement. Dr. Nina changed to antibiotics to Ancef IV for 8-12 weeks from last surgery date which is now complete. Patient then went to [facility] for therapy. During her course she developed nausea, vomiting, and abdominal discomfort. GI was consulted. CT 12-17-16 small bowel ileus, constipation, moderate ascites. EGD 12-17-16 --> esophagus has free reflux and inflammation, but no geoff seen, stomach full of bilious liquid, no ulcerations or erosions , pylorus widely patent duodenum, moderate bilious liquid aspirated. 12-18-16 SBxr --> prolonged small bowel transit time, nonspecific mild to moderate diffuse small bowel distention, indicate ileus, prominent reflux contrast into proximal thoracic esophagus. KUB 12-19-16 --> decreasing small bowel distention/ ileus. Patient transferred to acute hospitalization for ileus. Patient was started on TPN which has now been discontinued. She is also having regular bowel movements. Her appetite has remained poor and will need to be monitored carefully at discharge. Patient is very weak and will need extensive therapy. Discharge to [facility] rehab and Dr. Kendrick will follow patient. - Pt Condition on Discharge: Stable Discharge Disposition: Discharge to SNF Discharge Instructions DIET: Follow Instructions for: As Tolerated, No Restrictions Activities you can perform: Regular-No Restrictions New Medications: Lactobacillus Acidophilus (Acidophilus/l-Sporogenes) 1 Tab Tab 1 TAB PO Q12HR Nutritional Supplement #60 TAB Metoclopramide (Metoclopramide) 10 Mg Tab 10 MG PO ACHS Nausea #120 TAB Metoprolol Tartrate (Metoprolol Tartrate) 25 Mg Tab 25 MG PO Q12HR Blood Pressure Management #60 TAB Pantoprazole (Protonix) 40 Mg Tab 40 MG PO Q12HR Heartburn Management #60 TAB Polyethylene Glycol 3350 Powder (Polyethylene Glycol 3350 Powder) 17 Gm Pow 17 GM PO DAILY Constipation #30 BOTTLE Continued Medications: Acetaminophen (Acetaminophen) 325 Mg Tab 650 MG PO Q6H PRN PAIN 1-3 AND/OR FEVER >101F #30 TAB Bisacodyl Supp (Dulcolax Supp) 10 Mg Supp 1 MG RECTAL DAILY PRN CONSTIPATION #12 Ref 0 SUPP Docusate Sodium (Colace) 100 Mg Cap 100 MG PO BID Constipation #60 Ref 0 CAP Ipratropium-Albuterol Neb (Duoneb) 0.5-2.5 Mg/3 Ml Neb 1 AMPULE NEB Q2HR NEB PRN SHORTNESS OF BREATH #30 ML Magnesium Hydroxide Liq (Milk of Magnesia Liq) 400 Mg/5 Ml Susp 30 ML PO DAILY PRN INDIGESTION OR UPSET STOMACH #1 Ref 0 BOTTLE Megestrol Liq (Megace Liq) 40 Mg/Ml Susp 400 MG PO DAILY Improve Appetite Ref 0 ML Discontinued Medications: Amlodipine (Norvasc) 5 Mg Tab 5 MG NG DAILY@12 #30 TAB Bisacodyl Supp (Bisac-Evac Supp) 10 Mg Supp 10 MG RECTAL DAILY Days 5 Metoclopramide Liq (Metoclopramide Liq) 5 Mg/5 Ml Liq 10 MG NG ACHS Days 30 ML Metoprolol Tartrate (Lopressor) 50 Mg Tab 50 MG NG Q12HR Days 30 TAB Pantoprazole Inj (Protonix Inj) 40 Mg Inj 40 MG IV PUSH Q12H Days 30 INJECTION Polysaccharide Iron Complex (Poly-Iron 150) 150 Mg Cap 150 MG PO Q12HR Electrolyte Replacement #60 CAP Risperidone (Risperidone) 0.25 Mg Tab 0.25 MG PO Q12HR #60 Ref 0 TAB Dayanara Barbour Dec 30, 2016 12:34
[2016-12-30] MEDS: SODIUM CHLORIDE 0.9% FLUSH 10 ML FLUSH IV FLUSH PRN ×2 (15:11→15:56)
== END 2016-12-30 16:07 | DRG 389 ==
LOC: N07A 14:32
PROVIDERS: ADMIT Family Medicine; ATTEND Family Medicine
DX: K56.7 Ileus, unspecified (principal); R18.8 Other ascites; C79.51 Secondary malignant neoplasm of bone; R63.0 Anorexia; E87.1 Hypo-osmolality and hyponatremia; D64.9 Anemia, unspecified; G97.64 Postprocedural seroma of a nervous system organ or structure following other procedure; I10 Essential (primary) hypertension; Z85.42 Personal history of malignant neoplasm of other parts of uterus; Z88.0 Allergy status to penicillin; G89.29 Other chronic pain; M54.9 Dorsalgia, unspecified; K21.9 Gastro-esophageal reflux disease without esophagitis; R53.81 Other malaise; Y83.8 Other surgical procedures as the cause of abnormal reaction of the patient, or of later complication, without mention of misadventure at the time of the procedure; Z92.21 Personal history of antineoplastic chemotherapy; F32.9 Major depressive disorder, single episode, unspecified; K56.41 Fecal impaction; Z86.61 Personal history of infections of the central nervous system
CPT/HCPCS: 74000; 76937; 80048; 80053; 82948; 83735; 84134; 85007; 85025; 85027; 86140; C9113; J0690; J1642; J1650; J2765; J2997